=== PATIENT | female | born 1990 | race Caucasian/White ===

== ENCOUNTER 2024-06-29 11:37 | Emergency (ER) | payer OTHER, SELFPAY ==
[2024-06-29 11:41] VITALS: BP 105/61; PULSE 65; TEMP 36.6; O2SAT 99; BMI 28.1
--- NOTE | 2024-06-29 13:30 | ED.EXTPRO1 ---
HPI - Extremity Problem General Chief complaint: Extremity Problem, Nontraumatic Stated complaint: ANXIOUS Time Seen by Provider: 06/29/24 11:46 Source: patient Mode of arrival: walk-in Limitations: no limitations History of Present Illness HPI Narrative: The patient is coming to the ER for evaluation of her right wrist pain, she mentioned that she have history of carpal tunnel and she usually used to do some crafts but recently she mentioned that the pain got worse is mostly associated with numbness and tingling in her first 3 fingers No history of fall or injury The patient also mentioned that she have a history of neuropathic pain she is supposed to gabapentin but for the last few months she has not had any insurance and she has not had follow-up with her doctor to get a refill Related Data Home Medications ?Medication ?Instructions ?Recorded ?Confirmed clonidine HCl 0.1 mg tablet 0.1 mg PO Q8H PRN withdrawal 06/29/24 06/29/24 symptoms hydroxyzine HCl 50 mg tablet 50 mg PO BID PRN anxiety 06/29/24 06/29/24 naltrexone 50 mg tablet 100 mg PO Q24H 06/29/24 06/29/24 omeprazole 40 mg capsule,delayed 40 mg PO DAILY 06/29/24 06/29/24 release propranolol 10 mg tablet 10 mg PO Q12H PRN anxiety 06/29/24 06/29/24 valacyclovir 500 mg tablet 500 mg PO DAILY 06/29/24 06/29/24 zolpidem 10 mg tablet 10 mg PO BEDTIME 06/29/24 06/29/24 Previous Rx's ?Medication ?Instructions ?Recorded acetaminophen 650 mg 650 mg PO Q8H PRN pain #20 tabs 06/29/24 tablet,extended release (Tylenol 8 Hour) gabapentin 800 mg tablet 800 mg PO TID 5 days #15 tabs 06/29/24 prednisone 20 mg tablet 20 mg PO DAILY 5 days #5 tabs 06/29/24 Allergies Allergy/AdvReac Type Severity Reaction Status Date / Time No Known Drug Allergies Allergy Verified 06/29/24 11:45 Review of Systems ROS Status of ROS 10 or more systems reviewed and unremarkable except as noted in history and below Exam Narrative Exam Narrative: Nurses notes and vital signs reviewed and patient is not hypoxic. General: Well-appearing and in no apparent distress. Skin: Warm, dry, no pallor noted. No rash. Head: Normocephalic, atraumatic. Neck: Supple, non-tender. Eye: Pupils are equal, round and EOMI. No scleral icterus. Ears, Nose, Mouth, and Throat: TM are clear, no nasal mucosal hypertrophy. Oral mucosa is moist, no posterior oropharynx erythema, uvula is mid-line Cardiovascular: Regular Rate and Rhythm without murmur, gallop or rub. Respiratory: No accessory muscle use or respiratory distress. Lungs are clear to auscultation, no wheezing, rales or rhonchi Chest Wall: no tenderness Back: No midline thoracic or lumbar vertebral tenderness. No CVA tenderness Musculoskeletal: normal ROM, no calf or popliteal tenderness, no lower extremity edema/swelling, patient right hand examination shows no numbness tingling or any finding on examination except for localized tenderness at the wrist area mostly laterally GI: Abdomen is soft, non-distended. Normal bowel sounds. No masses appreciated. No tenderness to palpation. No rebound, guarding, or rigidity noted. Neurological: A&O x4. No cranial nerve dysfunction observed. No truncal ataxia. Moves all extremities. Sensation intact. Psychiatric: Cooperative and interactive. Normal mood and affect. Constitutional Vital Signs, click to edit/add: Last Vital Signs Temp 97.8 F 06/29/24 11:41 Pulse 65 06/29/24 11:41 Resp 16 06/29/24 11:41 BP 105/61 06/29/24 11:41 Pulse Ox 99 06/29/24 11:41 O2 Del Method Room Air 06/29/24 11:41 Course Vital Signs Vital signs: Vital Signs Temperature 97.8 F 06/29/24 11:41 Pulse Rate 65 06/29/24 11:41 Respiratory Rate 16 06/29/24 11:41 Blood Pressure 105/61 06/29/24 11:41 Pulse Oximetry 99 06/29/24 11:41 Oxygen Delivery Method Room Air 06/29/24 11:41 Temperature 97.8 F 06/29/24 11:41 Pulse Rate 65 06/29/24 11:41 Respiratory Rate 16 06/29/24 11:41 Blood Pressure 105/61 06/29/24 11:41 Pulse Oximetry 99 06/29/24 11:41 Oxygen Delivery Method Room Air 06/29/24 11:41 MDM - Extremity (Nontraumatic) MDM Narrative Medical decision making narrative: The patient rest evaluation showed that mostly she is having carpal tunnel again she was started on prednisone low-dose as well as Tylenol with the splint of the wrist was already worn by the patient The patient also provided gabapentin for the next 5 days with instruction to follow-up with her primary care for further evaluation The patient is to follow up with primary care physician in next 2-3 days or to return to the emergency department should any of the signs or symptoms worsen or new symptoms develop. The patient agrees with the following Diagnosis and Treatment plan and the patient will be discharged home. Discharge Plan Discharge Stand Alone Forms: Portal Instructions Chief Complaint: Extremity Problem, Nontraumatic Clinical Impression: Medicine refill Acute carpal tunnel syndrome Qualifiers: Laterality: right Qualified Code(s): G56.01 - Carpal tunnel syndrome, right upper limb Patient Disposition: Home, Self-Care Time of Disposition Decision: 12:03 Condition: Good Prescriptions / Home Meds: New prednisone 20 mg tablet 20 mg PO DAILY 5 Days Qty: 5 0RF acetaminophen [Tylenol 8 Hour] 650 mg tablet extended release 650 mg PO Q8H PRN (Reason: pain) Qty: 20 0RF gabapentin 800 mg tablet 800 mg PO TID 5 Days Qty: 15 0RF Discontinued gabapentin 800 mg tablet 800 mg PO QID No Action clonidine HCl 0.1 mg tablet 0.1 mg PO Q8H PRN (Reason: withdrawal symptoms) hydroxyzine HCl 50 mg tablet 50 mg PO BID PRN (Reason: anxiety) naltrexone 50 mg tablet 100 mg PO Q24H omeprazole 40 mg capsule,delayed release(DR/EC) 40 mg PO DAILY propranolol 10 mg tablet 10 mg PO Q12H PRN (Reason: anxiety) valacyclovir 500 mg tablet 500 mg PO DAILY zolpidem 10 mg tablet 10 mg PO BEDTIME Print Language: Slovenian Instructions: Gabapentin (By mouth), Carpal Tunnel Syndrome (DC) Referrals: Physician,Non-Staff, MD [Primary Care Provider] - 1 week Discharge Date/Time: 06/29/24 12:12
== END 2024-06-29 12:12 | disposition home or self-care (01) ==
PROVIDERS: Emergency Provider Emergency Medicine
DX: G56.01 Carpal tunnel syndrome, right upper limb (principal); Z76.0 Encounter for issue of repeat prescription
CPT/HCPCS: 99283

== ENCOUNTER 2024-10-22 16:08 | Outpatient (OUT) | payer MEDICAID, SELFPAY ==
[2024-10-22 17:23] LABS: Basophils Percent Auto 0.6 % (0.2-2.0); Eosinophils Absolute Auto 0.1 10^3/uL (0.0-0.7); Eosinophils Percent Auto 1.9 % (0.9-7.0); Hematocrit 31.6 % (36.0-48.0); Hemoglobin 10.6 g/dL (12.0-16.0); Immature Granulocytes Abs Auto 0.01 10^3/uL (0.00-0.03); Immature Granulocytes Pct Auto 0.1 % (0.0-0.5); Lymphocytes Absolute Auto 3.8 10^3/uL (1.2-3.8); Lymphocytes Percent Auto 55.7 % (20.5-60.0); Mean Corpuscular HGB Conc 33.5 g/dL (29.9-35.2); Mean Corpuscular Hemoglobin 33.8 pg (26.7-34.0); Mean Corpuscular Volume 100.6 fL (81.0-99.0); Mean Platelet Volume 12.3 fL (9.5-13.5); Monocytes Absolute Auto 0.6 10^3/uL (0.3-0.8); Monocytes Percent Auto 8.8 % (1.7-12.0); Neutrophils Absolute Auto 2.2 10^3/uL (1.4-6.5); Neutrophils Percent Auto 32.9 % (43.0-75.0); Platelet Count 132 10^3/uL (150-450); Red Blood Count 3.14 10^6/uL (4.20-5.40); White Blood Count 6.8 10^3/uL (4.0-11.0)
[2024-10-22 17:29] LABS: INR 1.14; Prothrombin Time 11.9 sec (9.0-11.6)
[2024-10-22 18:08] LABS: Alanine Aminotransferase 101 U/L (14-59); Albumin Globulin Ratio 0.7; Albumin Level 3.4 g/dL (3.4-5.0); Alkaline Phosphatase 129 U/L (46-116); Anion Gap 13.1; Aspartate Amino Transferase 81 U/L (15-37); BUN Creatinine Ratio 18.9; Bilirubin Total 0.8 mg/dL (0.2-1.0); Carbon Dioxide 25.8 mmol/L (21.0-32.0); Chloride 103 mmol/L (98-107); Estimated GFR (African America >60 (>=60 mL/min/1.73m^2); Estimated GFR (Non-African Ame >60 (>=60 mL/min/1.73m^2); Glucose 77 mg/dL (74-106); Potassium 3.9 mmol/L (3.5-5.1); Sodium 138 mmol/L (136-145); Total Protein 8.4 g/dL (6.4-8.2)
[2024-10-22 18:10] LABS: HCG Quantitative <1 mIU/mL
[2024-10-25 20:09] LABS: Hepatitis C Genotype 1a (.)
== END 2024-10-22 16:09 | disposition home or self-care (01) ==
LOC: LAB 16:11
DX: J18.9 Pneumonia, unspecified organism (principal); B18.2 Chronic viral hepatitis C; F10.180 Alcohol abuse with alcohol-induced anxiety disorder; Z13.84 Encounter for screening for dental disorders
CPT/HCPCS: 36415; 80053; 81596; 84702; 85025; 85610; 86708; 87902

== ENCOUNTER 2024-12-30 07:27 | Outpatient (OUT) | payer SELFPAY ==
--- OUTSIDE RECORDS SUMMARY | 2024-12-30 07:32 | XMS_ITS | CCD ---
Author Organization [facility]iniSym[facility] Care Team Providers Care Reference Librarian Name Role Phone STERAVIOFF, KORI Attending Unavailable STEENHOFF, KORI Admitting Unavailable SELF, REFERRED Referring Unavailable SELF, REFERRED Primary Care Unavailable Unavailable Primary Care Provider Unavailcathie e Unavailable Primary Care Provider Unavailcathie e CHASE PEGUERO Attending Unavailable SEGUNDO SOTO Admitting Unavailable RENNY GONSALES I Attending Unavailable LEYLA VORA Consulting Unavailable DENISA TORRES Consulting Unavailable AKIRA NAVARRETE Referring Unavailable STEENHOFF, KORI Attending Unavailable STEENHOFF, KORI Referring Unavailable Karen Langford Unavailable BK, P. RERE Referring Unavailable BK, P. RERE Attending Unavailable SELF, SELF Primary Care Unavailable BK, P. RERE Attending Unavailable SELF, SELF Primary Care Unavailable BK, P. RERE Referring Unavailable BK, P. RERE Referring Unavailable BK, P. RERE Attending Unavailable SELF, SELF Primary Care Unavailable BK, P. RERE Referring Unavailable BK, P. RERE Attending Unavailable SELF, SELF Primary Care Unavailable SELF, SELF Primary Care Unavailable BK, P. RERE Referring Unavailable BK, P. RERE Attending Unavailable BK, P. RERE Attending Unavailable SELF, SELF Referring Unavailable BK, P. RERE Referring Unavailable BK, P. RERE Attending Unavailable BK, P. RERE Referring Unavailable BK, P. RERE Attending Unavailable BK, P. RERE Referring Unavailable BK, P. RERE Attending Unavailable BK, P. RERE Referring Unavailable BK, P. RERE Attending Unavailable BK, P. RERE Referring Unavailable BK, P. RERE Attending Unavailable SELF, SELF Primary Care Unavailable BK, P. RERE Referring Unavailable BK, P. RERE Attending Unavailable SELF, SELF Primary Care Unavailable NO FAMILY, PHYSICIAN Primary Care Provider Unava ilable DO Chase Dunn A Emergency Provider MD Mike Verduzco Admit Provider MD Mike Verduzco Attending Provider MD Rolo Perez Other Provider MD Chidi Rick Attending Provider MD Leyla Emerson Other Provider MD Vadim Banda Other Provider SAMY Fabian Other Provider DO Steven June Jr Other Provider [phone] MD Macho Adan Other Provider MD Renny Multani Other Provider NO FAMILY, PHYSICIAN Primary Care Unavailable Rolo Perez Consulting Unavailable Chidi Rick Attending Unavailable Mike Verduzco Admitting Unavailab le Leyla Emerson Consulting Unavailable Vadim Banda Consulting Unavailable Gerri Fabian Consulting Unavailable Steven June Jr Consulting Unavailabl e Macho Adan Consulting Unavaila ble Renny Multani Consulting Unavaila ble Medications Current Medications Medication Drug Class(es) Dates Sig (Normalized) Sig (Original) acamprosate calcium 333 mg delayed release oral tablet (3 sources) Start: 11-07-2022 take 1 tablet by mouth twice daily acamprosate (CAMPRAL) 333 MG tablet Take 333 mg by mouth 2 times daily 0 11/07/2022 Active Acetaminophen (2 sources) Start: 01-13-2023 acetaminophen (TYLENOL) tablet 650 mg Pain Relief Extr a Strength 500 MG Oral for 7 Days Active amoxicillin 500 mg oral capsule (1 source) Penicillin-class Antibacterial Start: 03-06-2023 take 1 capsule by mouth every eight hours Amoxicillin 500 MG 1 capsule Orally three times a day for 10 day(s) Feb, Active buprenorphine 8 mg / naloxone 2 mg sublingual tablet (4 sources) Partial Opioid Agonist, Opioid Antagonist Start: 01-13-2023 buprenorphine-na loxone (SUBOXONE) 8-2 MG SL tablet 2 tablet Buprenorphine HC l-Naloxone HCl 8-2 MG dissolve 1 FILM under the tongue three times a day Sublingual for 14 Days Active buprenorphine-na loxone (SUBOXONE) 8-2 MG SUBL SL tablet Place 1 tablet under the tongue 3 times daily. 0 Active cholecalciferol 1.25 mg oral capsule (1 source) Vitamin D Start: 12-23-2022 End: 01-21-2023 take 1 capsule by mouth every week vitamin D (CHOLECALCIFEROL) 19501 UNIT CAPS Take 50,000 Units by mouth once a week 0 12/23/2022 01/21/2023 Active cloNIDine hydrochloride 0.1 mg oral tablet (6 sources) Central alpha-2 Adrenergic Agonist Start: 08-17-2024 take 1 tablet by mouth once daily at bedtime Clonidine Hcl Active 0.1 MG PO Daily at bedtime August 17, 2024 12:00am FreeTextSig: Oral; Note: Source Status: Taking; Qty: 14 Tablet; Provider: Anastasiya Jones ( ) Start: 01-13-2023 End: 01-16-2023 cloNIDine (CATAPRES) 0.1 MG/ 24HR 1 patch Start: 01-03-2023 take 1 tablet by malena th three times daily cloNIDine (CATAPRES) 0.1 MG tablet Take 0.1 mg by mouth 3 times daily 0 01/03/2023 Active folic acid 1 mg oral tablet (4 sources) Start: 01-13-2023 take 1 tablet by mouth once daily folic acid (FOLVITE) 1 MG tablet Take 1 tablet by mouth daily 30 tablet 3 01/14/2023 Active gabapentin 800 mg oral tablet (6 sources) Anti-epileptic Agent Start: 08-20-2024 take 1 tablet by mouth three times daily Gabapentin Active 800 MG PO Three times daily August 20, 2024 6:31pm FreeTextSig: Oral; Note: Source Status: Taking; Qty: 42 Tablet; Provider: Anastasiya Jones ( ) Start: 08-17-2024 End: 08-20-2024 take 1 tablet by mouth four times daily Gabapentin Discontinued 800 MG PO Four times daily August 17, 2024 12:00am August 20, 2024 6:32pm FreeTextSig: Oral; Note: Source Status: Taking; Qty: 42 Tablet; Provider: Anastasiya Jones ( ) Start: 01-13-2023 gabapentin (NE URONTIN) capsule 400 mg Start: 01-03-2023 take 1 tablet by malena th three times daily gabapentin (NEURONTIN) 800 MG tablet Take 800 mg by mouth 3 times daily. 0 01/03/2023 Active hydrOXYzine hydrochloride 50 mg oral tablet (5 sources) Antihistamine Start: 08-17-2024 take 50 mg by mouth four times daily Hydroxyzine Hcl Active 50 MG PO Four times daily August 17, 2024 12:00am Start: 11-24-2022 take 1 tablet by malena th twice daily hydrOXYzine HCl (ATARAX) 50 MG tablet Take 50 mg by mouth 2 times daily 0 11/24/2022 Active hydrOXYzine HCl 25 MG Oral for 3 Days Active ibuprofen 800 mg oral tablet (1 source) Nonsteroidal Anti-inflammatory Drug Ibuprofen 800 MG Oral for 30 Days Active nicotine 4 mg inhalation solution (3 sources) Cholinergic Nicotinic Agonist Start: 01-16-2023 End: 02-15-2023 nicotine (NICOTROL) 10 MG inhaler Inhale 1 puff into the lungs as needed for Smoking cessation 1 each 3 01/16/2023 02/15/2023 Active Start: 01-14-2023 nicotine (ERIC TROL) inhaler 1 puff (Patient Supplied) omeprazole 40 mg delayed release oral capsule (4 sources) Proton Pump Inhibitor Start: 08-17-2024 take 1 capsule by mouth once daily Omeprazole Active 40 MG PO Daily August 17, 2024 12:00am FreeTextSig: Oral; Note: Source Status: Taking; Qty: 30 Capsule; Provider: Anastasiya Jones ( ) Omeprazole 40 MG Oral for 30 Days Active ondansetron 4 mg oral tablet (5 sources) Serotonin-3 Receptor Antagonist Start: 08-17-2024 take 4 mg by mouth twice daily Ondansetron Hcl Active 4 MG PO Twice daily August 17, 2024 12:00am Start: 01-12-2023 End: 01-12-2023 ondansetron (ZOFRAN) injecti on 4 mg Start: 09-21-2022 End: 09-21-2022 ondansetron (ZOFRAN) injecti on 4 mg take 1 tablet by malena th four times daily for nausea Ondansetron 4 MG dissolve 1 tablet ON TONGUE four times a day if needed for nausea OR vomiting Oral for 3 Days Active ondansetron (ZOFRAN-ODT) disintegrating tablet 4 mg (1 source) Start: 01-13-2023 ondansetron (Z OFRAN-ODT) disintegrating tablet 4 mg PHENobarbital 65 mg/ml injectable solution (2 sources) Start: 01-15-2023 End: 01-17-2023 PHENobarbital (LUMINAL) injection 16.2 mg Start: 01-12-2023 End: 01-12-2023 PHENobarbital (LUMINAL) inje ction 260 mg Potassium Chloride (1 source) Start: 01-13-2023 potassium chlo ride (KLOR-CON M) extended release tablet 40 mEq predniSONE 20 mg oral tablet (1 source) Start: 03-06-2023 take 1 tablet by mouth every twelve hours predniSONE 20 MG 1 tablet Orally bid for 5 day(s) Feb, Active propranolol hydrochloride 10 mg oral tablet (4 sources) beta-Adrenergic Iraida Start: 08-17-2024 take 1 tablet by mouth twice daily Propranolol Active 10 MG PO Three times daily August 17, 2024 12:00am FreeTextSig: take 1 tablet by mouth twice a day if needed for 30 DAYS Oral; Note: Source Status: Taking; Refills: 0; Qty: 60 Each; Provider: EMELY SHEFFIELD Start: 01-03-2023 take 1 tablet by malena twice daily propranolol (INDERAL) 10 MG tablet Take 10 mg by mouth 2 times daily 0 01/03/2023 Active Senna Leaves (1 source) take 1 tablet by mouth once daily at bedtime RA Senna 8.6 MG take 1 tablet by mouth every morning and BEFORE BEDTIME Oral for 30 Days Active thiamine 100 mg oral tablet (4 sources) Start: 01-13-2023 take 1 tablet by mouth once daily thiamine 100 MG tablet Take 1 tablet by mouth daily 30 tablet 3 01/14/2023 Active zolpidem tartrate 10 mg oral tablet (1 source) gamma-Aminobutyric Acid-ergic Agonist Start: 08-17-2024 take 10 mg by mouth once daily at bedtime Zolpidem Active 10 MG PO Daily at bedtime August 17, 2024 12:00am Completed/Discontinued Medications Medication Drug Class(es) Dates Sig (Normalized) Sig (Original) calcium chloride 0.0014 meq/ml / potassium chloride 0.004 meq/ml / sodium chloride 0.103 meq/ml / sodium lactate 0.028 meq/ml injectable solution (2 sources) Start: 01-13-2023 End: 01-14-2023 lactated ringers IV soln infusion Start: 09-21-2022 End: 09-21-2022 lactated ringers bolus 50 ml calcium gluconate 20 mg/ml injection (1 source) Start: 01-13-2023 End: 01-13-2023 calcium gluconate 1,000 mg in sodium chloride 50 mL 0.4 ml enoxaparin sodium 100 mg/ml prefilled syringe (1 source) Low Molecular Weight Heparin Start: 01-13-2023 inject 40 mg by subcutaneous injection once daily 40 mg, SubCUTAneous, DAILY, First dose on Mon01/13/23 at 0900, Until Discontinued Indication of Use: Prophylaxis-DVT/P E Administer by deep subCUTAneous injection with pt lying down. Alternate injection sites on abdominal wall. Do not rub site after injection. Check with MD prior to any invasive procedure. folic acid 1 mg, thiamine (B-1) 100 mg in sodium chloride 0.9 % 50 mL IVPB (1 source) Start: 01-12-2023 End: 01-12-2023 folic acid 1 mg, thiamine (B-1) 100 mg in sodium chloride 0.9 % 50 mL IVPB 1000 ml glucose 500 mg/ml injection (1 source) Start: 01-12-2023 End: 01-12-2023 dextrose 50 % IV solution LORazepam 0.5 mg oral tablet (1 source) Benzodiazepine Start: 09-21-2022 End: 09-21-2022 LORazepam (ATIVAN) tablet 1 mg Start: 09-21-2022 End: 09-21-2022 LORazepam (ATIVAN) tablet 1 mg 50 ml magnesium sulfate 40 mg/ml injection (1 source) Start: 01-12-2023 End: 01-13-2023 magnesium sulfate 2000 mg in 50 mL IVPB premix melatonin 10 mg extended release oral tablet (1 source) Melatonin 10 MG Oral for 30 Days Not-Taking 2 ml midazolam 1 mg/ml injection (1 source) Benzodiazepine Start: 09-21-2022 End: 09-21-2022 midazolam PF (VERSED) injection 2 mg pantoprazole 40 mg delayed release oral tablet (1 source) Proton Pump Inhibitor Start: 01-14-2023 take 40 mg by mouth once daily before breakfast 40 mg, Oral, DAILY BEFORE BREAKFAST, First dose on Mon01/14/23 at 0700, Until Discontinued Do not crush or break. Substituted for Omeprazole (PRILOSEC). polyethylene glycol 3350 53275 mg powder for oral solution (2 sources) Osmotic Laxative Start: 01-13-2023 17 g, Oral, DAILY PRN, Starting on Mon01/13/23 at 0013, Until Discontinued, Constipation First line therapy for constipation 2 ml prochlorperazine 5 mg/ml injection (1 source) Phenothiazine Start: 01-16-2023 End: 01-16-2023 prochlorperazine (COMPAZINE) injection 10 mg Start: 01-16-2023 End: 01-16-2023 prochlorperazine (COMPAZINE) injection 10 mg 5 ml sodium chloride 9 mg/ml injection (6 sources) Start: 01-13-2023 take 1 dose intravenously twice daily 5-40 mL, IntraVENous, EVERY 12 HOURS SCHEDULED (2 times per day), First dose on Mon01/13/23 at 0900, Until Discontinued For Line Patency: Peripheral IV = 5 mL; Midline or Central Line = 10 mL/lumen. If following IV push medication, administer flush at same rate as the IV push. Flush volume is determined by type of infusion therapy being given. For non-viscous solutions use: Peripheral IV = 5 mL Midline or Central Line = 10 mL/lumen For viscous solutions (i.e. blood components, parenteral nutrition, contrast media, or after obtaining blood sample) use: Peripheral IV = 10 mL Midline or Central Line = 20 mL/lumen Start: 01-13-2023 End: 01-13-2023 IntraVENous, at 125 mL/hr, CONTINUOUS, Starting on Mon01/13/23 at 0030 Start: 01-13-2023 IntraVENous, a t 5-250 mL/hr, PRN, if patient receiving piggyback infusions and maintenance fluids are not ordered OR KVO fluids to protect IV site / prevent frequent line interruptions/ long duration, Starting on Mon01/13/23 at 0013 For piggyback infusion, administer at same rate as piggyback for a total of 25 mL. Enter 25 mL into dose field and piggyback rate into rate field of order. If piggyback is infusing at a rate less than 100 mL/hr, enter 25 mL into dose field and 100 mL/hr into rate field of order. For KVO fluids, enter rate of 20 mL/hr or less into rate field of order. Start: 01-13-2023 take 10 mL intraveno usly once as needed 10 mL, IntraVENous, PRN, Starting on Mon01/13/23 at 0013, Until Discontinued, Line Care, After every IV line use Start: 01-12-2023 End: 01-13-2023 0.9 % sodium chloride bolus tiZANidine 2 mg oral tablet (1 source) Central alpha-2 Adrenergic Agonist tiZANidine HCl 2 MG Oral for 6 Days Not-Taking traZODone hydrochloride 100 mg oral tablet (1 source) Serotonin Reuptake Inhibitor traZODone HCl 100 MG Oral for 30 Days Not-Taking Problems Active Problems Problem Classification Problem Date Documented Date Episodic/Chronic Alcohol-related disorders (9 sources) Alcohol withdrawal syndrome; Translations: [Alcohol withdrawal syndrome with complication] Onset: 04-22-2022 09-21-2022 Chronic Alcohol-related disorders (3 sources) Alcohol intoxication delirium ; Translations: [Alcohol use, unspecified with intoxication delirium] Onset: 01-13-2023 Episodic Bacterial infection; unspecified site (1 source) Other specified bacterial agents as the cause of diseases classified elsewhere Episodic Coagulation and hemorrhagic disorders (3 sources) Thrombocytopenic disorder; Translations: [Thrombocytopenia, unspecified] Onset: 08-12-2024 08-15-2024 Chronic Deficiency and other anemia (1 source) Anemia; Translations: [Anemia, unspecified] 08-15-2024 Episodic Delirium, dementia, and amnestic and other cognitive disorders (4 sources) Delirium; Translations: [Delirium due to known physiological condition] 08-12-2024 Chronic Epilepsy; convulsions (5 sources) Seizure; Translations: [Unspecified convulsions] Onset: 01-12-2023 Episodic Miscellaneous mental health disorders (2 sources) Primary insomnia; Translations: [Primary insomnia] Onset: 05-04-2023 Chronic Nausea and vomiting (3 sources) Nausea and vomiting; Translations: [Nausea with vomiting, unspecified] Onset: 01-13-2023 Episodic Other circulatory disease (3 sources) Low blood pressure; Translations: [Hypotension, unspecified] Onset: 01-13-2023 Episodic Other endocrine disorders (3 sources) Hypoglycemia; Translations: [Hypoglycemia, unspecified] Onset: 01-13-2023 Chronic Other hematologic conditions (3 sources) Macrocytosis; Translations: [Other specified diseases of blood and blood-forming organs] Onset: 01-13-2023 Chronic Other liver diseases (2 sources) Liver disease, unspecified; Translations: [Liver disease, unspecified] Onset: 01-23-2023 Chronic Other liver diseases (3 sources) Jaundice; Translations: [Unspecified jaundice] Onset: 01-13-2023 Episodic Other liver diseases (2 sources) Abnormal levels of other serum enzymes; Translations: [Abnormal levels of other serum enzymes] Onset: 01-23-2023 Episodic Other nutritional; endocrine; and metabolic disorders (1 source) Hypophosphatemia; Translations: [Other disorders of phosphorus metabolism] 08-13-2024 Chronic Other nutritional; endocrine; and metabolic disorders (1 source) Hypomagnesemia; Translations: [Hypomagnesemia] 08-13-2024 Chronic Other nutritional; endocrine; and metabolic disorders (2 sources) Hypomagnesemia; Translations: [Disorders of magnesium metabolism] Onset: 08-12-2024 08-21-2024 Chronic Other nutritional; endocrine; and metabolic disorders (2 sources) Other disorders of phosphorus metabolism; 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] Onset: 08-12-2024 08-21-2024 Chronic Other upper respiratory infections (2 sources) Acute pharyngitis, unspecified; Translations: [Acute pharyngitis due to other specified organisms] Episodic Residual codes; unclassified (1 source) Current drinker; Translations: [Other specified health status] Episodic Residual codes; unclassified (2 sources) Altered mental status; Translations: [Altered mental status, unspecified] 08-12-2024 Episodic Substance-related disorders (5 sources) Combined opioid with other drug dependence; Translations: [Opioid dependence, uncomplicated] Onset: 01-13-2023 Chronic Unclassified (1 source) Alcohol use, unspecified with withdrawal, uncomplicated; Translations: [Alcohol use, unspecified with withdrawal, uncomplicated] Onset: 01-12-2023 Unclassified (2 sources) Withdrawal; Translations: [Withdrawal] Onset: 09-28-2022 Unclassified (2 sources) Suicidal; Translations: [Suicidal] Onset: 09-28-2022 Past or Other Problems Problem Classification Problem Date Documented Da te Episodic/Chronic Acute and unspecified renal failure (4 sources) Acute renal failure syndrome; Translations: [Acute kidney failure, unspecified] Onset: 08-12-2024 08-13-2024 Episodic Administrative/social admission (3 sources) Other reduced mobility; Translations: [Impaired mobility and activities of daily living] Onset: 08-12-2024 08-19-2024 Episodic Aspiration pneumonitis; food/vomitus (3 sources) Aspiration pneumonia; Translations: [Pneumonitis due to inhalation of food and vomit] Onset: 08-12-2024 08-12-2024 Episodic Coma; stupor; and brain damage (2 sources) Somnolence; Translations: [Somnolence] Onset: 04-20-2023 Episodic Deficiency and other anemia (2 sources) Anemia, unspecified; Translations: [Anemia, unspecified] Onset: 08-12-2024 08-21-2024 Episodic Fluid and electrolyte disorders (6 sources) Metabolic acidosis, increased anion gap (IAG); Translations: [High anion gap metabolic acidosis] Onset: 01-13-2023 Episodic Other circulatory disease (1 source) Hypotension, unspecified; Translations: [Hypotension, unspecified] Onset: 08-12-2024 Episodic Pneumonia (except that caused by tuberculosis or sexually transmitted disease) (5 sources) Pneumonia; Translations: [Pneumonia, unspecified organism] Onset: 08-12-2024 08-12-2024 Episodic Residual codes; unclassified (2 sources) Other specified health status; Translations: [Other specified health status] Onset: 09-21-2022 Episodic Residual codes; unclassified (3 sources) Altered mental status, unspecified; Translations: [Altered mental status] Onset: 08-12-2024 08-12-2024 Episodic Respiratory failure; insufficiency; arrest (adult) (5 sources) Acute hypoxemic respiratory failure; Translations: [Acute respiratory failure with hypoxia] Onset: 08-12-2024 08-12-2024 Episodic Septicemia (except in labor) (7 sources) Sepsis; Translations: [Sepsis, unspecified organism] Onset: 08-12-2024 08-12-2024 Episodic Shock (1 source) Severe sepsis with septic shock; Translations: [Severe sepsis with septic shock] Onset: 08-12-2024 Episodic Substance-related disorders (2 sources) Heroin overdose; Translations: [Poisoning by heroin, undetermined, initial encounter] Onset: 09-21-2022 Episodic Urinary tract infections (3 sources) Urinary tract infectious disease; Translations: [Urinary tract infection, site not specified] Onset: 08-12-2024 08-13-2024 Episodic Results Test Name Value Interpretation Reference Range Facility Albumin [Mass/volume] in Ser um or Plasma by Bromocresol green (BCG) dye binding methoOrdered By: Rolo Perez on 08-20-2024 Albumin BCG dye [Mass/Vol] 2.9 g/dL Low 3.5-5.7 [facility] Automated basophil %Ordered By: Dianne Queen on 08-20-2024 Basophils/100 WBC (Bld) 0.9 % Normal . [facility] Comment on above: Performed By: #### P T, FIB-C #### [facility] [address] [place] [address] Automated basophil countOrde red By: Dianne Queen on 08-20-2024 Basophils (Bld) [#/Vol] 0.1 10*3/uL Normal 0.0-0.2 [facility] Comment on above: Result Comment: PERF ORMED BY: [place] [address] PATHOLOGIST RESEARCH SPECIALIST SHERLY TATUM M.D. Performed By: #### P T, FIB-C #### [facility] [address] [place] [address] Automated blood monocyte cou ntOrdered By: Dianne Queen on 08-20-2024 Monocytes (Bld) [#/Vol] 0.9 10*3/uL High 0.0-0.8 [facility] Comment on above: Performed By: #### P T, FIB-C #### [address] Automated eosinophil %Ordere d By: Dianne Bret on 08-20-2024 Eosinophils/100 WBC (Bld) 2.6 % Normal . [facility] Comment on above: Performed By: #### P T, FIB-C #### [address] Automated eosinophil countOr dered By: Dianne Bret on 08-20-2024 Eosinophils (Bld) [#/Vol] 0.2 10*3/uL Normal 0.0-0.45 [facility] Comment on above: Performed By: #### P T, FIB-C #### [address] Automated monocyte %Ordered By: Dianne Bret on 08-20-2024 Monocytes/100 WBC (Bld) 11.9 % Normal . [facility] Comment on above: Performed By: #### P T, FIB-C #### [address] Automated neutrophil %Ordere d By: Dianne Bret on 08-20-2024 Neutrophils/100 WBC (Bld) 48.2 % Normal . [facility] Comment on above: Performed By: #### P T, FIB-C #### [address] Calcium [Mass/volume] in Ser um or PlasmaOrdered By: Rolo Perez on 08-20-2024 Calcium [Mass/Vol] 7.8 mg/dL Low 8.6-10.3 [facility] Comment on above: Performed By: #### P T, FIB-C #### [address] Carbon dioxide, total [Moles /volume] in Serum or PlasmaOrdered By: Rolo Chris on 08-20-2024 CO2 [Moles/Vol] 24.2 mmol/L Normal 21.0-31.0 [facility] Comment on above: Performed By: #### P T, FIB-C #### [address] Chloride [Moles/volume] in S dada or PlasmaOrdered By: Rolo Perez on 08-20-2024 Chloride [Moles/Vol] 108 mmol/L High 98-107 [facility] Comment on above: Performed By: #### P T, FIB-C #### [address] Complete Blood Count Auto Di ffon 08-20-2024 Mean Corpuscular HGB Conc 34.0 g/dL Normal 32.0-35.0 [facility] Comment on above: Performed By: #### P T, FIB-C #### [address] NRBC% 0.1 /100{WBC} Normal 0-0.5 [facility] Comment on above: Performed By: #### P T, FIB-C #### [address] Creatinine [Mass/volume] in Serum or PlasmaOrdered By: Rolo Perez on 08-20-2024 Creatinine [Mass/Vol] 1.64 mg/dL High 0.60-1.20 [facility] Comment on above: Performed By: #### P T, FIB-C #### [address] Erythrocyte distribution wid th [Ratio] by Automated countOrdered By: Dianne Queen on 08-20-2024 Erythrocyte distribution width (RBC) [Ratio] 16.1 % High 11.9-15.3 [facility] Comment on above: Performed By: #### P T, FIB-C #### [address] Erythrocytes [#/volume] in B lood by Automated countOrdered By: Dianne Queen on 08-20-2024 RBC (Bld) [#/Vol] 3.14 10*6/uL Low 3.60-5.00 [facility] Comment on above: Performed By: #### P T, FIB-C #### [address] Glucose [Mass/volume] in Ser um or PlasmaOrdered By: Rolo Perez on 08-20-2024 Glucose [Mass/Vol] 87 mg/dL Normal 70-100 [facility] Comment on above: ADA recommended refe rence rangeRandom Glucose Reference Range is dependent on time and content of last meal. Glucose of more than 200 mg/dL in a nonstressed, ambulatory subject supports the diagnosis of Diabetes Mellitus. Result Comment: [place] om Glucose Reference Range is dependent on time and content of last meal. Glucose of more than 200 mg/dL in a nonstressed, ambulatory subject supports the diagnosis of Diabetes Mellitus. ADA recommended reference range Performed By: #### P T, FIB-C #### [address] Hematocrit [Volume Fraction] of Blood by Automated countOrdered By: Dianne Queen on 08-20-2024 Hematocrit (Bld) [Volume fraction] 30.4 % Low 34.0-46.4 [facility] Comment on above: Performed By: #### P T, FIB-C #### [address] Hemoglobin [Mass/volume] in BloodOrdered By: Dianne Queen on 08-20-2024 Hemoglobin (Bld) [Mass/Vol] 10.3 g/dL Low 11.8-15.4 [facility] Comment on above: Performed By: #### P T, FIB-C #### [facility] [address] [place] [address] Leukocytes [#/volume] correc minerva for nucleated erythrocytes in Blood by Automated counOrdered By: Dianne Queen on 08-20-2024 WBC corrected for nucl RBC Auto (Bld) [#/Vol] 7.7 10*3/uL 3.8-11.6 [facility] Leukocytes [#/volume] in Blo od by Automated countOrdered By: Dianne Queen on 08-20-2024 WBC (Bld) [#/Vol] 7.7 10*3/uL Normal 3.8-11.6 [facility] Comment on above: Performed By: #### P T, FIB-C #### [address] Lymphocytes [#/volume] in Bl ood by Automated countOrdered By: Dianne Queen on 08-20-2024 Lymphocytes (Bld) [#/Vol] 2.8 10*3/uL Normal 1.00-4.8 [facility] Comment on above: Performed By: #### P T, FIB-C #### [address] Lymphocytes/100 leukocytes i n Blood by Automated countOrdered By: Dianne Queen on 08-20-2024 Lymphocytes/100 WBC (Bld) 36.4 % Normal . [facility] Comment on above: Performed By: #### P T, FIB-C #### [address] MCH [Entitic mass] by Automa minerva countOrdered By: Dianne Queen on 08-20-2024 MCH (RBC) [Entitic mass] 32.9 pg Normal 24.7-34.3 [facility] Comment on above: Performed By: #### P T, FIB-C #### [address] MCHC Auto (RBC) [Mass/Vol]Or dered By: Dianne Queen on 08-20-2024 MCHC (RBC) [Mass/Vol] 34.0 g/dL 32.0-35.0 [facility] MCV [Entitic volume] by Auto mated countOrdered By: Dianne Queen on 08-20-2024 MCV (RBC) [Entitic vol] 96.7 fL Normal 80-100 [facility] Comment on above: Performed By: #### P T, FIB-C #### [address] Neutrophils [#/volume] in Bl ood by Automated countOrdered By: Dianne Queen on 08-20-2024 Neutrophils (Bld) [#/Vol] 3.7 10*3/uL Normal 1.8-7.7 [facility] Comment on above: Performed By: #### P T, FIB-C #### [facility] [address] [place] [address] No Panel InformationOrdered By: Rolo Perez on 08-20-2024 Estimated GFR (CKD-EPI) 42.398 mL/Min [facility] Creatinine Clearance (Chem 59.04 [facility] Nucleated erythrocytes [Pres ence] in Blood by Automated countOrdered By: Dianne Queen on 08-20-2024 Nucleated RBC Auto Ql (Bld) 0.1 /100{WBC} 0-0.5 [facility] Phosphate [Mass/volume] in S dada or PlasmaOrdered By: Rolo Perez on 08-20-2024 Phosphate [Mass/Vol] 3.6 mg/dL Normal 2.5-4.5 [facility] Comment on above: Performed By: #### P T, FIB-C #### [facility] [address] [place] [address] Platelet mean volume [Entiti c volume] in Blood by Automated countOrdered By: Dianne Queen on 08-20-2024 Platelet mean volume (Bld) [Entitic vol] 8.0 fL Normal 6.3-10.7 [facility] Comment on above: Performed By: #### P T, FIB-C #### [facility] [address] [place] [address] Platelets [#/volume] in Bloo d by Automated countOrdered By: Dianne Queen on 08-20-2024 Platelets (Bld) [#/Vol] 177 10*3/uL Normal 150-450 [facility] Comment on above: Performed By: #### P T, FIB-C #### [facility] [address] [place] [address] Potassium [Moles/volume] in Serum or PlasmaOrdered By: Rolo Perez on 08-20-2024 Potassium [Moles/Vol] 3.2 mmol/L Low 3.5-5.1 [facility] Comment on above: Performed By: #### P T, FIB-C #### [address] Renal Function Panelon 08-20 Albumin [Mass/Vol] 2.9 g/dL Low 3.5-5.7 [facility] Comment on above: Performed By: #### P T, FIB-C #### [address] Creatinine Clr Calc Pharmacy 59.04 Normal [facility] Comment on above: Result Comment: PERF ORMED BY: [place] [address] PATHOLOGIST RESEARCH SPECIALIST SHERLY TATUM M.D. Performed By: #### P T, FIB-C #### [address] GFR/1.73 sq M.predicted MDRD (S/P/Bld) [Vol rate/Area] 42.398 mL/min/{1.73_m2} Normal [facility] Comment on above: Performed By: #### P T, FIB-C #### [address] Serum or plasma anion gap de terminationOrdered By: Rolo Perez on 08-20-2024 Anion gap [Moles/Vol] 12.0 mmol/L Normal 6.0-15.0 [facility] Comment on above: Performed By: #### P T, FIB-C #### [address] Sodium [Moles/volume] in Ser um or PlasmaOrdered By: Rolo Chris on 08-20-2024 Sodium [Moles/Vol] 141 mmol/L Normal 136-145 [facility] Comment on above: Performed By: #### P T, FIB-C #### [address] Urea nitrogen [Mass/volume] in Serum or PlasmaOrdered By: Rolo Perez on 08-20-2024 Urea nitrogen [Mass/Vol] 25 mg/dL Normal 7-25 [facility] Comment on above: Performed By: #### P T, FIB-C #### [address] Complete Blood Count Auto Di ffon 08-19-2024 Basophils (Bld) [#/Vol] 0.1 10*3/uL Normal 0.0-0.2 [facility] Comment on above: Result Comment: PERF ORMED BY: [place] [address] PATHOLOGIST RESEARCH SPECIALIST SHERLY TATUM M.D. Performed By: #### P HOS, MG #### [address] Basophils/100 WBC (Bld) 0.6 % Normal . [facility] Comment on above: Performed By: #### P HOS, MG #### [address] Eosinophils (Bld) [#/Vol] 0.2 10*3/uL Normal 0.0-0.45 [facility] Comment on above: Performed By: #### P HOS, MG #### [address] Eosinophils/100 WBC (Bld) 1.9 % Normal . [facility] Comment on above: Performed By: #### P HOS, MG #### [address] Erythrocyte distribution width (RBC) [Ratio] 15.8 % High 11.9-15.3 [facility] Comment on above: Performed By: #### P HOS, MG #### [address] Hematocrit (Bld) [Volume fraction] 31.6 % Low 34.0-46.4 [facility] Comment on above: Performed By: #### P HOS, MG #### [address] Hemoglobin (Bld) [Mass/Vol] 10.6 g/dL Low 11.8-15.4 [facility] Comment on above: Performed By: #### P HOS, MG #### [address] Lymphocytes (Bld) [#/Vol] 2.7 10*3/uL Normal 1.00-4.8 [facility] Comment on above: Performed By: #### P HOS, MG #### [address] Lymphocytes/100 WBC (Bld) 29.9 % Normal . [facility] Comment on above: Performed By: #### P HOS, MG #### [address] MCH (RBC) [Entitic mass] 32.8 pg Normal 24.7-34.3 [facility] Comment on above: Performed By: #### P HOS, MG #### [address] MCV (RBC) [Entitic vol] 97.8 fL Normal 80-100 [facility] Comment on above: Performed By: #### P HOS, MG #### [address] Mean Corpuscular HGB Conc 33.5 g/dL Normal 32.0-35.0 [facility] Comment on above: Performed By: #### P HOS, MG #### [address] Monocytes (Bld) [#/Vol] 1.1 10*3/uL High 0.0-0.8 [facility] Comment on above: Performed By: #### P HOS, MG #### [address] Monocytes/100 WBC (Bld) 12.6 % Normal . [facility] Comment on above: Performed By: #### P HOS, MG #### [address] Neutrophils (Bld) [#/Vol] 5.0 10*3/uL Normal 1.8-7.7 [facility] Comment on above: Performed By: #### P HOS, MG #### [address] Neutrophils/100 WBC (Bld) 55.0 % Normal . [facility] Comment on above: Performed By: #### P HOS, MG #### [facility] [address] [place] [address] NRBC% 0.2 /100{WBC} Normal 0-0.5 [facility] Comment on above: Performed By: #### P HOS, MG #### [address] Platelet mean volume (Bld) [Entitic vol] 7.9 fL Normal 6.3-10.7 [facility] Comment on above: Performed By: #### P HOS, MG #### [address] Platelets (Bld) [#/Vol] 144 10*3/uL Low 150-450 [facility] Comment on above: Performed By: #### P HOS, MG #### [address] RBC (Bld) [#/Vol] 3.23 10*6/uL Low 3.60-5.00 [facility] Comment on above: Performed By: #### P HOS, MG #### [address] WBC (Bld) [#/Vol] 9.0 10*3/uL Normal 3.8-11.6 [facility] Comment on above: Performed By: #### P HOS, MG #### [address] Renal Function Panelon 08-19 Albumin [Mass/Vol] 3.2 g/dL Low 3.5-5.7 [facility] Comment on above: Performed By: #### P T, FIB-C #### [address] Anion gap [Moles/Vol] 11.1 mmol/L Normal 6.0-15.0 [facility] Comment on above: Performed By: #### P T, FIB-C #### [address] Calcium [Mass/Vol] 8.2 mg/dL Low 8.6-10.3 [facility] Comment on above: Performed By: #### P T, FIB-C #### [address] Chloride [Moles/Vol] 108 mmol/L High 98-107 [facility] Comment on above: Performed By: #### P T, FIB-C #### [address] CO2 [Moles/Vol] 26.3 mmol/L Normal 21.0-31.0 [facility] Comment on above: Performed By: #### P T, FIB-C #### [address] Creatinine [Mass/Vol] 2.04 mg/dL High 0.60-1.20 [facility] Comment on above: Performed By: #### P T, FIB-C #### [address] Creatinine Clr Calc Pharmacy 47.49 Normal [facility] Comment on above: Result Comment: PERF ORMED BY: [place] [address] PATHOLOGIST RESEARCH SPECIALIST SHERLY TATUM M.D. Performed By: #### P T, FIB-C #### [address] GFR/1.73 sq M.predicted MDRD (S/P/Bld) [Vol rate/Area] 32.629 mL/min/{1.73_m2} Normal [facility] Comment on above: Performed By: #### P T, FIB-C #### [place] [address] [place] Glucose [Mass/Vol] 82 mg/dL Normal 70-100 [facility] Comment on above: Result Comment: [facility] Glucose Reference Range is dependent on time and content of last meal. Glucose of more than 200 mg/dL in a nonstressed, ambulatory subject supports the diagnosis of Diabetes Mellitus. ADA recommended reference range Performed By: #### P T, FIB-C #### [address] Phosphate [Mass/Vol] 3.1 mg/dL Normal 2.5-4.5 [facility] Comment on above: Performed By: #### P T, FIB-C #### [address] Potassium [Moles/Vol] 3.4 mmol/L Low 3.5-5.1 [facility] Comment on above: Performed By: #### P T, FIB-C #### [address] Sodium [Moles/Vol] 142 mmol/L Normal 136-145 [facility] Comment on above: Performed By: #### P T, FIB-C #### [address] Urea nitrogen [Mass/Vol] 28 mg/dL High 7-25 [facility] Comment on above: Performed By: #### P T, FIB-C #### [address] Complete Blood Count Auto Di ffon 08-18-2024 Basophils (Bld) [#/Vol] 0.0 10*3/uL Normal 0.0-0.2 [facility] Comment on above: Result Comment: PERF ORMED BY: [place] [address] PATHOLOGIST RESEARCH SPECIALIST SHERLY TATUM M.D. Performed By: #### B TONGUE [employer] QUARTER STITCHER #### [address] Basophils/100 WBC (Bld) 0.5 % Normal . [facility] Comment on above: Performed By: #### B TONGUE [employer] QUARTER STITCHER #### [address] Eosinophils (Bld) [#/Vol] 0.1 10*3/uL Normal 0.0-0.45 [facility] Comment on above: Performed By: #### B TONGUE AND QUARTER STITCHER #### [address] Eosinophils/100 WBC (Bld) 1.1 % Normal . [facility] Comment on above: Performed By: #### B TONGUE AND QUARTER STITCHER #### [address] Erythrocyte distribution width (RBC) [Ratio] 16.4 % High 11.9-15.3 [facility] Comment on above: Performed By: #### B TONGUE [employer] QUARTER STITCHER #### [address] Hematocrit (Bld) [Volume fraction] 26.8 % Low 34.0-46.4 [facility] Comment on above: Performed By: #### B TONGUE [employer] QUARTER STITCHER #### [address] Hemoglobin (Bld) [Mass/Vol] 9.0 g/dL Low 11.8-15.4 [facility] Comment on above: Performed By: #### B TONGUE [employer] QUARTER STITCHER #### [address] Lymphocytes (Bld) [#/Vol] 2.2 10*3/uL Normal 1.00-4.8 [facility] Comment on above: Performed By: #### B TONGUE [employer] QUARTER STITCHER #### [address] Lymphocytes/100 WBC (Bld) 26.9 % Normal . [facility] Comment on above: Performed By: #### B TONGUE AND QUARTER STITCHER #### [address] MCH (RBC) [Entitic mass] 32.4 pg Normal 24.7-34.3 [facility] Comment on above: Performed By: #### B TONGUE AND QUARTER STITCHER #### [place] [address] MCV (RBC) [Entitic vol] 96.1 fL Normal 80-100 [facility] Comment on above: Performed By: #### B TONGUE AND QUARTER STITCHER #### [address] Mean Corpuscular HGB Conc 33.7 g/dL Normal 32.0-35.0 [facility] Comment on above: Performed By: #### B TONGUE AND QUARTER STITCHER #### [address] Monocytes (Bld) [#/Vol] 1.0 10*3/uL High 0.0-0.8 [facility] Comment on above: Performed By: #### B TONGUE AND QUARTER STITCHER #### [address] Monocytes/100 WBC (Bld) 11.6 % Normal . [facility] Comment on above: Performed By: #### B TONGUE AND QUARTER STITCHER #### [address] Neutrophils (Bld) [#/Vol] 5.0 10*3/uL Normal 1.8-7.7 [facility] Comment on above: Performed By: #### B TONGUE AND QUARTER STITCHER #### [address] Neutrophils/100 WBC (Bld) 59.9 % Normal . [facility] Comment on above: Performed By: #### B TONGUE AND QUARTER STITCHER #### [address] NRBC% 0.1 /100{WBC} Normal 0-0.5 [facility] Comment on above: Performed By: #### B TONGUE AND QUARTER STITCHER #### [address] Platelet mean volume (Bld) [Entitic vol] 7.7 fL Normal 6.3-10.[address] [facility] Comment on above: Performed By: #### B TONGUE AND QUARTER STITCHER #### [address] Platelets (Bld) [#/Vol] 118 10*3/uL Low 150-450 [facility] Comment on above: Performed By: #### B TONGUE AND QUARTER STITCHER #### [address] RBC (Bld) [#/Vol] 2.79 10*6/uL Low 3.60-5.00 [facility] Comment on above: Performed By: #### B TONGUE AND QUARTER STITCHER #### [address] WBC (Bld) [#/Vol] 8.3 10*3/uL Normal 3.8-11.6 [facility] Comment on above: Performed By: #### B TONGUE AND QUARTER STITCHER #### [address] Magnesium [Mass/volume] in S dada or PlasmaOrdered By: Rolo Perez on 08-18-2024 Magnesium [Mass/Vol] 1.9 mg/dL Normal 1.9-2.7 [facility] Comment on above: Result Comment: PERF ORMED BY: [place] [address] PATHOLOGIST RESEARCH SPECIALIST SHERLY TATUM M.D. Performed By: #### P T, FIB-C #### [address] Renal Function Panelon 08-18 Albumin [Mass/Vol] 3.1 g/dL Low 3.5-5.7 [facility] Comment on above: Performed By: #### P T, FIB-C #### [address] Anion gap [Moles/Vol] 10.5 mmol/L Normal 6.0-15.0 [facility] Comment on above: Performed By: #### P T, FIB-C #### [address] Calcium [Mass/Vol] 7.8 mg/dL Low 8.6-10.3 [facility] Comment on above: Performed By: #### P T, FIB-C #### [address] Chloride [Moles/Vol] 108 mmol/L High 98-107 [facility] Comment on above: Performed By: #### P T, FIB-C #### [address] CO2 [Moles/Vol] 29.5 mmol/L Normal 21.0-31.0 [facility] Comment on above: Performed By: #### P T, FIB-C #### [address] Creatinine [Mass/Vol] 2.28 mg/dL Significan t change up 0.60-1.20 [facility] Comment on above: Performed By: #### P T, FIB-C #### [address] Creatinine Clr Calc Pharmacy 43.94 Normal [facility] Comment on above: Result Comment: PERF ORMED BY: [place] [address] PATHOLOGIST RESEARCH SPECIALIST SHERLY TATUM M.D. Performed By: #### P T, FIB-C #### [address] GFR/1.73 sq M.predicted MDRD (S/P/Bld) [Vol rate/Area] 28.552 mL/min/{1.73_m2} Normal [facility] Comment on above: Performed By: #### P T, FIB-C #### [address] Glucose [Mass/Vol] 88 mg/dL Normal 70-100 [facility] Comment on above: Result Comment: [employer] Glucose Reference Range is dependent on time and content of last meal. Glucose of more than 200 mg/dL in a nonstressed, ambulatory subject supports the diagnosis of Diabetes Mellitus. ADA recommended reference range Performed By: #### P T, FIB-C #### [place] [address] [place] Phosphate [Mass/Vol] 3.0 mg/dL Normal 2.5-4.5 [facility] Comment on above: Performed By: #### P T, FIB-C #### [address] Potassium [Moles/Vol] 3.0 mmol/L Low 3.5-5.1 [facility] Comment on above: Performed By: #### P T, FIB-C #### [address] Sodium [Moles/Vol] 145 mmol/L Normal 136-145 [facility] Comment on above: Performed By: #### P T, FIB-C #### [address] Urea nitrogen [Mass/Vol] 31 mg/dL High 7-25 [facility] Comment on above: Performed By: #### P T, FIB-C #### [address] Triglyceride [Mass/volume] i n Serum or PlasmaOrdered By: Chase Dunn on 08-18-2024 Triglyceride [Mass/Vol] 134 mg/dL Normal 35-149 [facility] Comment on above: TRIG ATP III CLASSIF ICATIONTRIG less than 150 mg/dL NormalTRIG 150-199 mg/dL Borderline highTRIG 200-500 mg/dL High TRIG greater than 500 mg/dL Very highStandard traceable to the Center for Disease Conrtrol and Prevention (CDC) test method. Result Comment: TRIG ATP III CLASSIFICATION TRIG less than 150 mg/dL Normal TRIG 150-199 mg/dL Borderline high TRIG 200-500 mg/dL High TRIG greater than 500 mg/dL Very high Standard traceable to the Center for Disease Conrtrol and Prevention (CDC) test method. PERFORMED BY: [place] [address] PATHOLOGIST RESEARCH SPECIALIST SHERLY TATUM M.D. Performed By: #### P T, FIB-C #### [address] Arterial Blood Gason 024 ABG Base Excess -0.1 mmol/L Normal -3.0-3.0 [facility] Comment on above: Performed By: #### B TONGUE AND QUARTER STITCHER #### [address] ABG Frac Inspired O2 30 % Normal [facility] Comment on above: Performed By: #### B TONGUE AND QUARTER STITCHER #### [address] ABG Oxygen Content 6.4 mmol/L Low 6.6-9.7 [facility] Comment on above: Performed By: #### B TONGUE AND QUARTER STITCHER #### [address] ABG Oxygen Saturation 96.3 % Normal 95.0-100.0 [facility] Comment on above: Performed By: #### B TONGUE AND QUARTER STITCHER #### [address] ABG PCO2 36.8 mm[Hg] Normal 35.0-45.0 [facility] Comment on above: Performed By: #### B TONGUE AND QUARTER STITCHER #### [address] ABG PH 7.43 Normal 7.35-7.45 [facility] Comment on above: Performed By: #### B TONGUE AND QUARTER STITCHER #### [address] ABG PO2 84.2 mm[Hg] Normal 80.0-100.0 [facility] Comment on above: Performed By: #### B TONGUE AND QUARTER STITCHER #### [address] Respiratory Critical NO Normal [facility] Comment on above: Result Comment: PERF ORMED BY: [place] [address] PATHOLOGIST RESEARCH SPECIALIST SHERLY TATUM M.D. Performed By: #### B TONGUE AND QUARTER STITCHER #### [address] Arterial Blood GasOrdered By : NO PHYSICIAN on 08-17-2024 CO2 [Moles/Vol] 25.1 mmol/L Normal 23.0-27.0 [facility] Comment on above: Performed By: #### B TONGUE AND QUARTER STITCHER #### [address] HCO3 (Bld) [Moles/Vol] 24.0 mmol/L Normal 23.0-29.0 [facility] Comment on above: Performed By: #### B TONGUE AND QUARTER STITCHER #### [address] Capillary blood glucose feliciano urement by glucometer (mass/volume)Ordered By: Mike Verduzco on 08-17-2024 Glucose [Mass/Vol] 98 mg/dL Normal [facility] Comment on above: Random Glucose Refer ence Range is dependent on time and content of last meal. Glucose of more than 200 mg/dL in a nonstressed, ambulatory subject supports the diagnosis of Diabetes Mellitus. Result Comment: [employer] [facility] Glucose Reference Range is dependent on time and content of last meal. Glucose of more than 200 mg/dL in a nonstressed, ambulatory subject supports the diagnosis of Diabetes Mellitus. PERFORMED BY: [place] [address] PATHOLOGIST RESEARCH SPECIALIST SHERLY TATUM M.D. Performed By: #### P T, FIB-C #### [address] Complete Blood Count Auto Di ffon 08-17-2024 Basophils (Bld) [#/Vol] 0.0 10*3/uL Normal 0.0-0.2 [facility] Comment on above: Result Comment: PERF ORMED BY: [place] [address] PATHOLOGIST RESEARCH SPECIALIST SHERLY TATUM M.D. Performed By: #### P T, FIB-C #### [address] Basophils/100 WBC (Bld) 0.9 % Normal . [facility] Comment on above: Performed By: #### P T, FIB-C #### [address] Eosinophils (Bld) [#/Vol] 0.1 10*3/uL Normal 0.0-0.45 [facility] Comment on above: Performed By: #### P T, FIB-C #### [address] Eosinophils/100 WBC (Bld) 2.6 % Normal . [facility] Comment on above: Performed By: #### P T, FIB-C #### [address] Erythrocyte distribution width (RBC) [Ratio] 16.7 % High 11.9-15.3 [facility] Comment on above: Performed By: #### P T, FIB-C #### [address] Hematocrit (Bld) [Volume fraction] 28.9 % Low 34.0-46.4 [facility] Comment on above: Performed By: #### P T, FIB-C #### [address] Hemoglobin (Bld) [Mass/Vol] 9.8 g/dL Low 11.8-15.4 [facility] Comment on above: Performed By: #### P T, FIB-C #### [address] Lymphocytes (Bld) [#/Vol] 1.6 10*3/uL Normal 1.00-4.8 [facility] Comment on above: Performed By: #### P T, FIB-C #### [address] Lymphocytes/100 WBC (Bld) 28.8 % Normal . [facility] Comment on above: Performed By: #### P T, FIB-C #### [address] MCH (RBC) [Entitic mass] 32.9 pg Normal 24.7-34.3 [facility] Comment on above: Performed By: #### P T, FIB-C #### [place] [address] [place] MCV (RBC) [Entitic vol] 97.4 fL Normal 80-100 [facility] Comment on above: Performed By: #### P T, FIB-C #### [address] Mean Corpuscular HGB Conc 33.8 g/dL Normal 32.0-35.0 [facility] Comment on above: Performed By: #### P T, FIB-C #### [address] Monocytes (Bld) [#/Vol] 0.9 10*3/uL High 0.0-0.8 [facility] Comment on above: Performed By: #### P T, FIB-C #### [address] Monocytes/100 WBC (Bld) 16.3 % Normal . [facility] Comment on above: Performed By: #### P T, FIB-C #### [address] Neutrophils (Bld) [#/Vol] 2.9 10*3/uL Normal 1.8-7.7 [facility] Comment on above: Performed By: #### P T, FIB-C #### [address] Neutrophils/100 WBC (Bld) 51.4 % Normal . [facility] Comment on above: Performed By: #### P T, FIB-C #### [address] NRBC% 0.1 /100{WBC} Normal 0-0.5 [facility] Comment on above: Performed By: #### P T, FIB-C #### [address] Platelet mean volume (Bld) [Entitic vol] 8.2 fL Normal 6.3-10.[address] [facility] Comment on above: Performed By: #### P T, FIB-C #### [address] [place] [address] [place] Platelets (Bld) [#/Vol] 108 10*3/uL Low 150-450 [facility] Comment on above: Performed By: #### P T, FIB-C #### [address] RBC (Bld) [#/Vol] 2.97 10*6/uL Low 3.60-5.00 The [facility] Comment on above: Performed By: #### P T, FIB-C #### [address] WBC (Bld) [#/Vol] 5.6 10*3/uL Normal 3.8-11.6 The [facility] Comment on above: Performed By: #### P T, FIB-C #### [address] No Panel InformationOrdered By: NO PHYSICIAN on 08-17-2024 Arterial Blood Base Excess -0.1 mmol/L -3.0-3.0 [facility] Arterial Blood Oxygen Content 6.4 mmol/L Low 6.6-9.7 [facility] Arterial Blood Oxygen Saturation 96.3 % 95.0-100.0 [facility] Arterial Blood Partial Pressure CO2 36.8 mm[Hg] 35.0-45.0 [facility] Arterial Blood Partial Pressure O2 84.2 mm[Hg] 80.0-100.0 [facility] Arterial Blood pH 7.43 7.35-7.45 [facility] Blood Gas Critical Value No [facility] FiO2 30 % [facility] Renal Function Panelon 08-17 Albumin [Mass/Vol] 2.8 g/dL Low 3.5-5.7 The [facility] Comment on above: Performed By: #### P T, FIB-C #### [address] Anion gap [Moles/Vol] 12.8 mmol/L Normal 6.0-15.[address] [facility] Comment on above: Performed By: #### P T, FIB-C #### [address] Calcium [Mass/Vol] 8.1 mg/dL Low 8.6-10.3 The [facility] Comment on above: Performed By: #### P T, FIB-C #### [facility] [address] Chloride [Moles/Vol] 110 mmol/L High 98-107 The [facility] Comment on above: Performed By: #### P T, FIB-C #### [address] CO2 [Moles/Vol] 26.9 mmol/L Normal 21.0-31.0 The [facility] Comment on above: Performed By: #### P T, FIB-C #### [address] Creatinine [Mass/Vol] 2.87 mg/dL High 0.60-1.20 The [facility] Comment on above: Performed By: #### P T, FIB-C #### [place] [address] [place] Creatinine Clr Calc Pharmacy 35.34 Normal The [facility] Comment on above: Result Comment: PERF ORMED BY: [place] [address] PATHOLOGIST RESEARCH SPECIALIST SHERLY TATUM M.D. Performed By: #### P T, FIB-C #### [address] GFR/1.73 sq M.predicted MDRD (S/P/Bld) [Vol rate/Area] 21.662 mL/min/{1.73_m2} Normal The [facility] Comment on above: Performed By: #### P T, FIB-C #### [address] Glucose [Mass/Vol] 110 mg/dL High 70-100 The [facility] Comment on above: Result Comment: [employer] Glucose Reference Range is dependent on time and content of last meal. Glucose of more than 200 mg/dL in a nonstressed, ambulatory subject supports the diagnosis of Diabetes Mellitus. ADA recommended reference range Performed By: #### P T, FIB-C #### [facility] [address] [place] [address] Phosphate [Mass/Vol] 5.3 mg/dL High 2.5-4.5 The [facility] Comment on above: Performed By: #### P T, FIB-C #### [address] Potassium [Moles/Vol] 3.7 mmol/L Normal 3.5-5.1 The [facility] Comment on above: Performed By: #### P T, FIB-C #### [address] Sodium [Moles/Vol] 146 mmol/L High 136-145 The [facility] Comment on above: Performed By: #### P T, FIB-C #### [address] Urea nitrogen [Mass/Vol] 36 mg/dL High 7-25 The [facility] Comment on above: Performed By: #### P T, FIB-C #### [address] XR chest 1V portableon 08-17 XR chest 1V portable [facility] Main [place] [address] [place] [address] XRay Report Signed Patient: German Jacob MR#: [id number] : 1990 Acct:[id number] Age/Sex: 33 / F ADM Date: 08/12/24 Loc: Room: [address] [place] [address] Type: ADM IN Attending Dr: Mike Verduzco MD Copies to: MD Mike Solano MD Ordering Provider: Renny Multani MD Date of Service: 08/17/24 XR/XR chest 1V portable: pneumonia; respiratory failure Plain film chest Single view HISTORY: Daily assessment ventilated patient COMPARISON: 08/16/24 FINDINGS: SUPPORT DEVICES: Stable POSTSURGICAL CHANGES: None HEART: Stable PULMONARY JOSEFINA: Stable MEDIASTINUM: Unremarkable LUNGS AND PLEURA: A similar [id number] the basilar pleural-parenchymal changes. BONY STRUCTURES: Intact ADDITIONAL FINDINGS None XR/XR chest 1V portable IMPRESSION: Stable chest Impression dictated by: Pasha Vora M.D.08/17/2024 6:23 AM Dictation Location: [place] [address] Transcribed By: [facility] 08/17/24622 Dictated By: Pasha Vora DO 08/17/2421 Signed By: 08/17/2423 Normal The [facility] Arterial Blood Gason 024 ABG Base Excess -0.8 mmol/L Normal -3.0-3.0 The [facility] Comment on above: Performed By: #### A BG #### Point of Care testing , ABG Frac Inspired O2 30 % Normal The [facility] Comment on above: Performed By: #### A BG #### Point of Care testing , ABG Oxygen Content 6.0 mmol/L Low 6.6-9.7 The [facility] Comment on above: Performed By: #### A BG #### Point of Care testing , ABG Oxygen Saturation 96.3 % Normal 95.0-100.0 The [facility] Comment on above: Performed By: #### A BG #### Point of Care testing , ABG PCO2 38.8 mm[Hg] Normal 35.0-45.0 The [facility] Comment on above: Performed By: #### A BG #### Point of Care testing , ABG PEEP 5 Normal The [facility] Comment on above: Performed By: #### A BG #### Point of Care testing , ABG PH 7.41 Normal 7.35-7.45 The [facility] Comment on above: Performed By: #### A BG #### Point of Care testing , ABG PO2 87.6 mm[Hg] Normal 80.0-100.0 The [facility] Comment on above: Performed By: #### A BG #### Point of Care testing , ABG TV 450 mL Normal The [facility] Comment on above: Performed By: #### A BG #### Point of Care testing , CO2 [Moles/Vol] 25.0 mmol/L Normal 23.0-27.0 The [facility] Comment on above: Performed By: #### A BG #### Point of Care testing , HCO3 (Bld) [Moles/Vol] 23.8 mmol/L Normal 23.0-29.0 T he [facility] Comment on above: Performed By: #### A BG #### Point of Care testing , Respiratory Critical Normal The [facility] Comment on above: Result Comment: Crit ical Value called on: 08/16/2024 at 04:37 PERFORMED BY: [place] [address] PATHOLOGIST RESEARCH SPECIALIST SHERLY TATUM M.D. Performed By: #### A BG #### Point of Care testing , Set Respiratory Rate 12 Normal The [facility] Comment on above: Performed By: #### A BG #### Point of Care testing , VBG Draw Site Right Radial Normal The [facility] Comment on above: Performed By: #### A BG #### Point of Care testing , Ventilator Mode AC Normal [facility] Comment on above: Performed By: #### A BG #### Point of Care testing , Complete Blood Count Auto Di ffon 08-16-2024 Basophils (Bld) [#/Vol] 0.0 10*3/uL Normal 0.0-0.2 The [facility] Comment on above: Result Comment: PERF ORMED BY: [place] [address] PATHOLOGIST RESEARCH SPECIALIST SHERLY TATUM M.D. Performed By: #### [employer]ER #### [place] [address] [place] Basophils/100 WBC (Bld) 0.7 % Normal . The [facility] Comment on above: Performed By: #### B [employer] #### [address] Eosinophils (Bld) [#/Vol] 0.1 10*3/uL Normal 0.0-0.45 The [facility] Comment on above: Performed By: #### B [employer] #### [address] Eosinophils/100 WBC (Bld) 1.4 % Normal . The [facility] Comment on above: Performed By: #### B [employer] #### [address] Erythrocyte distribution width (RBC) [Ratio] 16.7 % High 11.9-15.3 The [facility] Comment on above: Performed By: #### B [employer] #### [address] Hematocrit (Bld) [Volume fraction] 26.2 % Low 34.0-46.4 The [facility] Comment on above: Performed By: #### B [employer] #### [address] Hemoglobin (Bld) [Mass/Vol] 8.9 g/dL Low 11.8-15.4 The [facility] Comment on above: Performed By: #### B [employer]ER #### [address] Lymphocytes (Bld) [#/Vol] 1.5 10*3/uL Normal 1.00-4.8 The [facility] Comment on above: Performed By: #### B [employer]ER #### [address] Lymphocytes/100 WBC (Bld) 29.5 % Normal . The [facility] Comment on above: Performed By: #### B [employer]ER #### [address] MCH (RBC) [Entitic mass] 33.5 pg Normal 24.7-34.3 The [facility] Comment on above: Performed By: #### B [employer]ER #### [address] MCV (RBC) [Entitic vol] 98.5 fL Normal 80-100 [facility] Comment on above: Performed By: #### B [employer] #### [address] Mean Corpuscular HGB Conc 34.0 g/dL Normal 32.0-35.0 [facility] Comment on above: Performed By: #### B [employer] #### [address] Monocytes (Bld) [#/Vol] 0.9 10*3/uL High 0.0-0.8 [facility] Comment on above: Performed By: #### B [employer]ER #### [address] Monocytes/100 WBC (Bld) 17.4 % Normal . The [facility] Comment on above: Performed By: #### B [employer]ER #### [address] Neutrophils (Bld) [#/Vol] 2.6 10*3/uL Normal 1.8-7.7 [facility] Comment on above: Performed By: #### B [employer]ER #### [address] Neutrophils/100 WBC (Bld) 51.0 % Normal . [facility] Comment on above: Performed By: #### B [employer]ITCHER #### [address] NRBC% 0.1 /100{WBC} Normal 0-0.5 The [facility] Comment on above: Performed By: #### B [employer]UE [employer]AR[employer]ITCHER #### [address] Platelet mean volume (Bld) [Entitic vol] 9.3 fL Normal 6.3-10.[address] [facility] Comment on above: Performed By: #### B [employer]ONGUE [employer]AR[employer]ITCHER #### [address] Platelets (Bld) [#/Vol] 108 10*3/uL Low 150-450 [facility] Comment on above: Performed By: #### B [employer]ER #### [place] [address] [place] RBC (Bld) [#/Vol] 2.66 10*6/uL Low 3.60-5.00 The [facility] Comment on above: Performed By: #### B [employer]ONGUE [employer] QUAR[employer]ITCHER #### [address] WBC (Bld) [#/Vol] 5.0 10*3/uL Normal 3.8-11.6 The [facility] Comment on above: Performed By: #### B TONGUE [employer] QUARTER STITCHER #### [place] [id number] [facility] ECG 12 lead ECGon 08-16-2024 ECG 12 lead ECG [facility] Main [place] [address] [place] [address] Electrocardiograph Report Signed Patient: German Jacob MR#: [id number] : 1990 Acct:[id number] Age/Sex: 33 / F ADM Date: 08/12/24 Loc: Room: [address] [place] [address] Type: DIS IN Attending Dr: Chidi Rick MD Ordering Provider: Chidi Rick MD Date of Service: 08/16/24 ECG/ECG 12 lead ECG: pt evaluation Copies to: Test Reason : Blood Pressure : 142/92 mmHG Vent. Rate : 81 BPM Atrial Rate : 81 BPM P-R Int : 134 ms QRS Dur : 96 ms QT Int : 394 ms P-R-T Axes : 74 85 62 degrees QTcB Int : 457 ms Normal sinus rhythm Anterior infarct , age undetermined Confirmed by Leyla Koo ([id number]) on 08/25/2024 3:27:11 PM Referred By: Electronically Signed By: Leyla Koo Transcribed By: MUS Signed By Leyla Koo MD 4 1527 Normal The [facility] Glucose Poct Glucometerson 0 08-16-2024 Glucose [Mass/Vol] 84 mg/dL Normal The [facility] Comment on above: Result Comment: [employer] Glucose Reference Range is dependent on time and content of last meal. Glucose of more than 200 mg/dL in a nonstressed, ambulatory subject supports the diagnosis of Diabetes Mellitus. PERFORMED BY: [place] [address] PATHOLOGIST RESEARCH SPECIALIST SHERLY TATUM M.D. Performed By: #### C BC #### [address] Magnesiumon 08-16-2024 Magnesium [Mass/Vol] 2.7 mg/dL Normal 1.9-2.7 The [facility] Comment on above: Result Comment: PERF ORMED BY: [place] [address] PATHOLOGIST RESEARCH SPECIALIST SHERLY TATUM M.D. Performed By: #### B [employer]ONG[employer]AR[employer]ITCHER #### [address] No Panel InformationOrdered By: Mike Verduzco on 08-16-2024 Blood Gas PEEP 5 cmH2O [facility] Blood Gas Sample Site Right radial F [facility] Blood Gas Set Respiration Rate 12 [facility] Blood Gas Tidal Volume 450 mL [facility] Blood Gas Ventilator Mode Ac [facility] Renal Function Panelon 08-16 Albumin [Mass/Vol] 2.8 g/dL Low 3.5-5.7 The [facility] Comment on above: Performed By: #### B [employer]ONG[employer]AR[employer]ITCHER #### [address] Anion gap [Moles/Vol] 10.1 mmol/L Normal 6.0-15.0 Th e [facility] Comment on above: Performed By: #### B [employer]ONG[employer]AR[employer]ER #### [address] Calcium [Mass/Vol] 7.7 mg/dL Low 8.6-10.3 The [facility] Comment on above: Performed By: #### B [employer]ONG[employer] QUAR[employer]ER #### [address] Chloride [Moles/Vol] 110 mmol/L High 98-107 [facility] Comment on above: Performed By: #### B TONGUE [employer] QUARTER STITCHER #### [address] CO2 [Moles/Vol] 24.7 mmol/L Normal 21.0-31.0 The [facility] Comment on above: Performed By: #### B TONGUE [employer]AR[employer]ITCHER #### [address] Creatinine [Mass/Vol] 3.05 mg/dL High 0.60-1.20 The [facility] Comment on above: Performed By: #### B TONGUE [employer] QUARTER [employer]ITCHER #### [place] [address] [place] Creatinine Clr Calc Pharmacy 32.75 Normal [facility] Comment on above: Performed By: #### B TONGUE [employer] QUARTER [employer]ITCHER #### [place] [address] [place] GFR/1.73 sq M.predicted MDRD (S/P/Bld) [Vol rate/Area] 20.137 mL/min/{1.73_m2} Normal The [facility] Comment on above: Performed By: #### B TONGUE [employer] QUARTER STITCHER #### [address] Glucose [Mass/Vol] 102 mg/dL High 70-100 [facility] Comment on above: Result Comment: [facility] Glucose Reference Range is dependent on time and content of last meal. Glucose of more than 200 mg/dL in a nonstressed, ambulatory subject supports the diagnosis of Diabetes Mellitus. ADA recommended reference range Performed By: #### B TONGUE [employer] QUARTER STITCHER #### [place] [address] [place] Phosphate [Mass/Vol] 3.9 mg/dL Normal 2.5-4.5 [facility] Comment on above: Performed By: #### B TONGUE [employer] QUARTER [employer]ITCHER #### [place] [address] [place] Potassium [Moles/Vol] 3.8 mmol/L Normal 3.5-5.1 [facility] Comment on above: Performed By: #### B TONGUE [employer] QUARTER [employer]ITCHER #### [place] [address] [place] Sodium [Moles/Vol] 141 mmol/L Normal 136-145 [facility] Comment on above: Performed By: #### B TONGUE [employer] QUARTER STITCHER #### [address] Urea nitrogen [Mass/Vol] 39 mg/dL High 7-25 [facility] Comment on above: Performed By: #### B TONGUE [employer] QUARTER STITCHER #### [address] Triglycerideson 08-16-2024 Triglyceride [Mass/Vol] 88 mg/dL Normal 35-149 [facility] Comment on above: Result Comment: TRIG ATP III CLASSIFICATION TRIG less than 150 mg/dL Normal TRIG 150-199 mg/dL Borderline high TRIG 200-500 mg/dL High TRIG greater than 500 mg/dL Very high Standard traceable to the Center for Disease Conrtrol and Prevention (CDC) test method. PERFORMED BY: [place] [address] PATHOLOGIST RESEARCH SPECIALIST SHERLY TATUM M.D. Performed By: #### P T, FIB-C #### [address] XR chest 1V portableon 08-16 XR chest 1V portable [facility] Main [place] [address] [place] [address] XRay Report Signed Patient: German Jacob MR#: [id number] : 1990 Acct:[id number] Age/Sex: 33 / F ADM Date: 08/12/24 Loc: Room: [address] [place] [address] Type: ADM IN Attending Dr: Mike Verduzco MD Copies to: MD Mike Solano MD Ordering Provider: Renny Multani MD Date of Service: 08/16/24 XR/XR chest 1V portable: pneumonia; respiratory failure PORTABLE AP ERECT CHEST 0340 hours CLINICAL HISTORY: Respiratory distress on ventilator COMPARISON: 08/15/2024 Tubes and lines are unchanged in position. Bilateral pleural parenchymal changes are visualized, improving on the left and worsening on the right. Neither hemidiaphragm is well seen. No pneumothorax is identified. The cardiac and mediastinal contours are stable. XR/XR chest 1V portable IMPRESSION: CONTINUED PLEURAL-PARENCHYMAL CHANGES, DESCRIBED. Impression dictated by: Shavon Astorga M.D.08/16/2024 7:07 AM Dictation Location: [place] [address] Transcribed By: DES 08/16/24706 Dictated By: Shavon Astorga MD 08/16/24704 Signed By: 08/16/24706 Normal The [facility] Alanine aminotransferase [En zymatic activity/volume] in Serum or PlasmaOrdered By: Mike Verduzco on 08-15-2024 ALT [Catalytic activity/Vol] 143 U/L High 7-52 [facility] Comment on above: Performed By: #### P HOS, MG #### [facility] [address] [place] [address] Alkaline phosphatase [Enzyma tic activity/volume] in Serum or PlasmaOrdered By: Mike Verduzco on 08-15-2024 ALP [Catalytic activity/Vol] 68 U/L Normal 34-104 [facility] Comment on above: Performed By: #### P HOS, MG #### [facility] [address] [place], [place] [id number] [facility] Arterial Blood Gason 024 ABG Base Excess -1.1 mmol/L Normal -3.0-3.0 The [facility] Comment on above: Performed By: #### I SGLU #### Point of Care testing , ABG Frac Inspired O2 30 % Normal [facility] Comment on above: Performed By: #### I SGLU #### Point of Care testing , ABG Oxygen Content 5.8 mmol/L Low 6.6-9.7 [facility] Comment on above: Performed By: #### I SGLU #### Point of Care testing , ABG Oxygen Saturation 97.2 % Normal 95.0-100.0 [facility] Comment on above: Performed By: #### I SGLU #### Point of Care testing , ABG PCO2 39.8 mm[Hg] Normal 35.0-45.0 [facility] Comment on above: Performed By: #### I SGLU #### Point of Care testing , ABG PEEP 5 Normal [facility] Comment on above: Performed By: #### I SGLU #### Point of Care testing , ABG PH 7.39 Normal 7.35-7.45 [facility] Comment on above: Performed By: #### I SGLU #### Point of Care testing , ABG PO2 95.5 mm[Hg] Normal 80.0-100.0 [facility] Comment on above: Performed By: #### I SGLU #### Point of Care testing , ABG TV 450 mL Normal [facility] Comment on above: Performed By: #### I SGLU #### Point of Care testing , CO2 [Moles/Vol] 24.9 mmol/L Normal 23.0-27.0 The [facility] Comment on above: Performed By: #### I SGLU #### Point of Care testing , HCO3 (Bld) [Moles/Vol] 23.7 mmol/L Normal 23.0-29.0 T he [facility] Comment on above: Performed By: #### I SGLU #### Point of Care testing , Respiratory Critical Normal [facility] Comment on above: Result Comment: Crit ical Value called on: 08/15/2024 at 03:49 PERFORMED BY: [facility] [address] [place] [address] PATHOLOGIST RESEARCH SPECIALIST SHERLY TATUM M.D. Performed By: #### I SGLU #### Point of Care testing , Set Respiratory Rate 12 Normal [facility] Comment on above: Performed By: #### I SGLU #### Point of Care testing , VBG Draw Site Left Radial Normal [facility] Comment on above: Performed By: #### I SGLU #### Point of Care testing , Ventilator Mode AC Normal [facility] Comment on above: Performed By: #### I SGLU #### Point of Care testing , Aspartate aminotransferase [ Enzymatic activity/volume] in Serum or PlasmaOrdered By: Mike Verduzco on 08-15-2024 AST [Catalytic activity/Vol] 150 U/L High 13-39 [facility] Comment on above: Performed By: #### P HOS, MG #### [address] Bilirubin.total [Mass/volume ] in Serum or PlasmaOrdered By: Mike Verduzco on 08-15-2024 Bilirubin [Mass/Vol] 0.5 mg/dL Normal 0.3-1.0 [facility] Comment on above: Performed By: #### P HOS, MG #### [address] Complete Blood Count Auto Di ffon 08-15-2024 Basophils (Bld) [#/Vol] 0.0 10*3/uL Normal 0.0-0.2 [facility] Comment on above: Result Comment: PERF ORMED BY: [place] [address] PATHOLOGIST RESEARCH SPECIALIST SHERLY TATUM M.D. Performed By: #### C BC #### [address] Basophils/100 WBC (Bld) 0.4 % Normal . [facility] Comment on above: Performed By: #### C BC #### [address] Eosinophils (Bld) [#/Vol] 0.0 10*3/uL Normal 0.0-0.45 [facility] Comment on above: Performed By: #### C BC #### [address] Eosinophils/100 WBC (Bld) 0.9 % Normal . [facility] Comment on above: Performed By: #### C BC #### [address] Erythrocyte distribution width (RBC) [Ratio] 16.4 % High 11.9-15.3 [facility] Comment on above: Performed By: #### C BC #### [address] Hematocrit (Bld) [Volume fraction] 25.4 % Low 34.0-46.4 [facility] Comment on above: Performed By: #### C BC #### [facility] [address] Hemoglobin (Bld) [Mass/Vol] 8.4 g/dL Low 11.8-15.4 [facility] Comment on above: Performed By: #### C BC #### [address] Lymphocytes (Bld) [#/Vol] 1.1 10*3/uL Normal 1.00-4.8 [facility] Comment on above: Performed By: #### C BC #### [address] Lymphocytes/100 WBC (Bld) 21.2 % Normal . [facility] Comment on above: Performed By: #### C BC #### [address] MCH (RBC) [Entitic mass] 33.2 pg Normal 24.7-34.3 [facility] Comment on above: Performed By: #### C BC #### [address] MCV (RBC) [Entitic vol] 99.9 fL Normal 80-100 [facility] Comment on above: Performed By: #### C BC #### [address] Mean Corpuscular HGB Conc 33.2 g/dL Normal 32.0-35.0 [facility] Comment on above: Performed By: #### C BC #### [address] Monocytes (Bld) [#/Vol] 0.6 10*3/uL Normal 0.0-0.8 [facility] Comment on above: Performed By: #### C BC #### [address] Monocytes/100 WBC (Bld) 12.6 % Normal . [facility] Comment on above: Performed By: #### C BC #### [address] Neutrophils (Bld) [#/Vol] 3.3 10*3/uL Normal 1.8-7.7 [facility] Comment on above: Performed By: #### C BC #### [address] Neutrophils/100 WBC (Bld) 64.9 % Normal . [facility] Comment on above: Performed By: #### C BC #### [address] NRBC% 0.1 /100{WBC} Normal 0-0.5 [facility] Comment on above: Performed By: #### C BC #### [address] Platelet mean volume (Bld) [Entitic vol] 9.3 fL Normal 6.3-10.[address] [facility] Comment on above: Performed By: #### C BC #### [address] Platelets (Bld) [#/Vol] 89 10*3/uL Low 150-450 [facility] Comment on above: Performed By: #### C BC #### [address] RBC (Bld) [#/Vol] 2.54 10*6/uL Low 3.60-5.00 The Located [facility] Comment on above: Performed By: #### C BC #### [address] WBC (Bld) [#/Vol] 5.0 10*3/uL Normal 3.8-11.6 The [facility] Comment on above: Performed By: #### C BC #### [address] Comprehensive Metabolic Pane richie 08-15-2024 Albumin [Mass/Vol] 2.8 g/dL Low 3.5-5.7 The [facility] Comment on above: Performed By: #### P HOS, MG #### [facility] [address] [place] [address] [place] Anion gap [Moles/Vol] 8.3 mmol/L Normal 6.0-15.0 The [facility] Comment on above: Performed By: #### P HOS, MG #### [facility] [address] Calcium [Mass/Vol] 7.2 mg/dL Low 8.6-10.3 The [facility] Comment on above: Performed By: #### P HOS, MG #### [facility] [address] [place] [address] [place] Chloride [Moles/Vol] 111 mmol/L High 98-107 The [facility] Comment on above: Performed By: #### P HOS, MG #### [facility] [address] [place] [address] [place] CO2 [Moles/Vol] 24.7 mmol/L Normal 21.0-31.0 The [facility] Comment on above: Performed By: #### P HOS, MG #### [facility] [address] [place] [address] [place] Creatinine [Mass/Vol] 3.24 mg/dL High 0.60-1.20 The [facility] Comment on above: Performed By: #### P HOS, MG #### [facility] [address] [place] [address] [place] Creatinine Clr Calc Pharmacy 30.83 Normal The [facility] Comment on above: Performed By: #### P HOS, MG #### [place] [id number] [place] GFR/1.73 sq M.predicted MDRD (S/P/Bld) [Vol rate/Area] 18.728 mL/min/{1.73_m2} Normal The [facility] Comment on above: Performed By: #### P HOS, MG #### [place] [address] [place] Glucose [Mass/Vol] 91 mg/dL Normal 70-100 The [facility] Comment on above: Result Comment: [employer] Glucose Reference Range is dependent on time and content of last meal. Glucose of more than 200 mg/dL in a nonstressed, ambulatory subject supports the diagnosis of Diabetes Mellitus. ADA recommended reference range Performed By: #### P HOS, MG #### [address] Potassium [Moles/Vol] 4.0 mmol/L Normal 3.5-5.1 The [facility] Comment on above: Performed By: #### P HOS, MG #### [address] Sodium [Moles/Vol] 140 mmol/L Normal 136-145 The [facility] Comment on above: Performed By: #### P HOS, MG #### [address] Urea nitrogen [Mass/Vol] 40 mg/dL High 7-25 The [facility] Comment on above: Performed By: #### P HOS, MG #### [address] Glucose Poct Glucometerson 0 08-15-2024 Glucose [Mass/Vol] 90 mg/dL Normal The [facility] Comment on above: Result Comment: [facility] Glucose Reference Range is dependent on time and content of last meal. Glucose of more than 200 mg/dL in a nonstressed, ambulatory subject supports the diagnosis of Diabetes Mellitus. PERFORMED BY: [place] [address] PATHOLOGIST RESEARCH SPECIALIST SHERLY TATUM M.D. Performed By: #### C BC #### [address] Glucose [Mass/Vol] 93 mg/dL Normal The [facility] Comment on above: Result Comment: [employer] Glucose Reference Range is dependent on time and content of last meal. Glucose of more than 200 mg/dL in a nonstressed, ambulatory subject supports the diagnosis of Diabetes Mellitus. PERFORMED BY: [place] [address] PATHOLOGIST RESEARCH SPECIALIST SHERLY ATTUM M.D. Performed By: #### P T, FIB-C #### [facility] [address] [place] [address] Glucose [Mass/Vol] 96 mg/dL Normal The [facility] Comment on above: Result Comment: [facility] Glucose Reference Range is dependent on time and content of last meal. Glucose of more than 200 mg/dL in a nonstressed, ambulatory subject supports the diagnosis of Diabetes Mellitus. PERFORMED BY: [place] [address] PATHOLOGIST RESEARCH SPECIALIST SHERLY TATUM M.D. Performed By: #### I SGLU #### Point of Care testing , Haptoglobinon 08-15-2024 Haptoglobin 132 mg/dL Normal 44-215 The [facility] Comment on above: Result Comment: PERF ORMED BY: [place] [address] PATHOLOGIST RESEARCH SPECIALIST SHERLY TATUM M.D. Performed By: #### C BC #### [address] Haptoglobin [Mass/volume] in Serum or PlasmaOrdered By: Rolo Perez on 08-15-2024 Haptoglobin [Mass/Vol] 132 mg/dL 44-215 [facility] Richie 08-15-2024 L Specimen: [id number] Received: 08/15/24 Status: SOUT Req Num: [id number] Spec Type: Impression Subm Dr: Mike Verduzco MD Tissues: PATHPER Procedures: PATHREVIEW Age/ Patient Sex Location Account Attending Physician German Jacob 33/F [id number] Mike Verduzco MD SPEC NUM: [id number] RECD: 08/15/24 STATUS: SOUT REQ NUM: [id number] PORFIRIO: 08/15/24- SUBM DR: Mike Verduzco MD ENTERED: 08/15/[address]: VERA FAMILY PHYSICIAN SPEC TYPE: Impression DEPT: [place] ENTERED BY: [id number] RECV BY: [id number] ORDERED: PATHREVIEW ORDERED: PATHREVIEW Pathologist Review Hypochromic microcytic anemia with occasional spherocytes, thrombocytopenia and relative lymphocytosis. CPT code 02975 CBC Date Time Test Result Flag (u) Normal Range 08/13/24 0410 Poik Slight Aniso Slight Oval Slight Stomato Slight Plt Est Normal Normal Plt Morphology Normal Normal 08/15/24 0450 WBC 5.0 3.8-11.6 X10E3/uL RBC 2.54 L 3.60-5.00 X10E6/uL HGB 8.4 L 11.8-15.4 g/dL HCT 25.4 L 34.0-46.4 % MCV 99.9 80-100 fl MCH 33.2 24.7-34.3 pg MCHC 33.2 32.0-35.0 g/dL RDW 16.4 H 11.9-15.3 % Plt 89 L 150-450 x10E3/uL MPV 9.3 6.3-10.7 fl Neut % (Auto) 64.9 . % Specimen: [id number] Received: 08/15/24 Status: RADHA Mae Num: [id number] Spec Type: Impression Subm Dr: Mike Verduzco MD Tissues: PATHPER Procedures: PATHREVIEW Patient: German Jacob Marcio [id number] (Continued) Specimen: [id number] Received: 08/15/24 (Continued) CBC (Continued) Signed (signature on file) Suleman Lemus MD 08/15/24 1401 Specimen: [id number] Received: 08/15/24 Status: RADHA Wall Num: [id number] Spec Type: Impression Subm Dr: Mike Verduzco MD Tissues: PATHPER Procedures: PATHREVIEW Patient: German Jacob [id number] (Continued) Specimen: [id number] Received: 08/15/24 (Continued) CBC (Continued) Lymp % (Auto) 21.2 . % Hancock % (Auto) 12.6 . % Eos % (Auto) 0.9 . % Baso % (Auto) 0.4 . % NRBC% 0.1 0-0.5 /100 WBC Neut # (Auto) 3.3 1.8-7.7 x10E3/uL Lymph # (Auto) 1.1 1.00-4.8 x10E3/uL Hancock # (Auto) 0.6 0.0-0.8 x10E3/uL Eos # (Auto) 0.0 0.0-0.45 x10E3/uL Baso# (Auto) 0.0 0.0-0.2 x10E3/uL Specimen: [id number] Received: 08/15/24 Status: RADHA Wall Num: [id number] Spec Type: Impression Subm Dr: Mike Verduzco MD Tissues: PATHPER Procedures: PATHREVIEW Patient: ReneGerman E [id number] (Continued) Signed (signature on file) Suleman Lemus MD 08/15/24 1401 Normal [facility] LDH Lactate Dehydrogenaseon 08-15-2024 LDH Lactate Dehydrogenase 296 U/L High 140-271 The [facility] Comment on above: Result Comment: PERF ORMED BY: [place] [address] PATHOLOGIST RESEARCH SPECIALIST SHERLY TATUM M.D. Performed By: #### C BC #### [place] [id number] [facility] Lactate dehydrogenase [Enzym atic activity/volume] in Serum or Plasma by Lactate to pyOrdered By: Rolo Perez on 08-15-2024 LDH Lactate to pyruvate reaction [Catalytic activity/Vol] 296 U/L High 140-271 [facility] Magnesiumon 08-15-2024 Magnesium [Mass/Vol] 3.0 mg/dL Significant change up 1.9-2.7 The [facility] Comment on above: Performed By: #### C BC #### [place] [id number] [facility] No Panel InformationOrdered By: Rolo Perez on 08-15-2024 Slides for Pathologist Review Ordered path review [facility] Pathologist Slide Reviewon 0 08-15-2024 Pathologist Slide Review Ordered Path Review Normal The [facility] Comment on above: Result Comment: PERF ORMED BY: [place] [address] PATHOLOGIST RESEARCH SPECIALIST SHERLY TATUM M.D. Performed By: #### C BC #### [place] [id number] [facility] Protein [Mass/volume] in Ser um or PlasmaOrdered By: Mike Verduzco on 08-15-2024 Protein [Mass/Vol] 5.6 g/dL Low 6.4-8.9 [facility] Comment on above: Performed By: #### P HOS, MG #### [address] Renal Function Panelon 08-15 Phosphate [Mass/Vol] 4.3 mg/dL Normal 2.5-4.5 The [facility] Comment on above: Performed By: #### P HOS, MG #### [address] Serum globulin measurement b y calculation (mass/volume)Ordered By: Mike Verduzco on 08-15-2024 Globulin (S) [Mass/Vol] 2.8 g/dL Normal [facility] Comment on above: Performed By: #### P HOS, MG #### [address] Serum or plasma albumin/glob ulin mass ratioOrdered By: Mike Verduzco on 08-15-2024 Albumin/Globulin [Mass ratio] 1.0 {ratio} Normal [facility] Comment on above: Performed By: #### P HOS, MG #### [address] Triglycerideson 08-15-2024 Triglyceride [Mass/Vol] 113 mg/dL Normal 35-149 The [facility] Comment on above: Result Comment: TRIG ATP III CLASSIFICATION TRIG less than 150 mg/dL Normal TRIG 150-199 mg/dL Borderline high TRIG 200-500 mg/dL High TRIG greater than 500 mg/dL Very high Standard traceable to the Center for Disease Conrtrol and Prevention (CDC) test method. PERFORMED BY: [place] [address] PATHOLOGIST RESEARCH SPECIALIST SHERLY TATUM M.D. Performed By: #### A BG #### Point of Care testing , XR chest 1V portableon 08-15 XR chest 1V portable [facility] Main [place] [address] [place] [address] XRay Report Signed Patient: German Jacob MR#: [id number] : 1990 Acct:[id number] Age/Sex: 33 / F ADM Date: 08/12/24 Loc: Room: 8Q5765-6 Type: ADM IN Attending Dr: Mike Verduzco MD Copies to: MD Mike Solano MD Ordering Provider: Renny Multani MD Date of Service: 08/15/24 XR/XR chest 1V portable: pneumonia; respiratory failure PORTABLE AP SEMIERECT CHEST 0333 hours CLINICAL HISTORY: Respiratory distress on ventilator. COMPARISON: 08/14/2024 Tubes and lines are unchanged from the comparison. There is elevation of the right hemidiaphragm. There is slight increase in groundglass density at the right lower lung. There is continued groundglass opacity on the left and poor visualization of the hemidiaphragm. This could be minimally improved. Pleural effusion is not excluded without a lateral view. There is no developing pneumothorax. Cardiac and mediastinal contours are similar. XR/XR chest 1V portable IMPRESSION: CONTINUED PARENCHYMAL CHANGES, POTENTIALLY MINIMALLY IMPROVED ON THE LEFT AND WORSE ON THE RIGHT Impression dictated by: Shavon Astorga M.D.08/15/2024 7:09 AM Dictation Location: [place] [address] Transcribed By: [facility] 08/15/24 0709 Dictated By: Shavon Astorga MD 08/15/24 07 Signed By: 08/15/24 0709 Normal [facility] Arterial Blood Gason 024 ABG Base Excess -3.2 mmol/L Low -3.0-3.0 The [facility] Comment on above: Performed By: #### I SGLU #### Point of Care testing , ABG Frac Inspired O2 35 % Normal [facility] Comment on above: Performed By: #### I SGLU #### Point of Care testing , ABG Oxygen Content 6.1 mmol/L Low 6.6-9.7 The [facility] Comment on above: Performed By: #### I SGLU #### Point of Care testing , ABG Oxygen Saturation 94.2 % Low 95.0-100.0 [facility] Comment on above: Performed By: #### I SGLU #### Point of Care testing , ABG PCO2 47.3 mm[Hg] High 35.0-45.0 [facility] Comment on above: Performed By: #### I SGLU #### Point of Care testing , ABG PH 7.31 Low 7.35-7.45 [facility] Comment on above: Performed By: #### I SGLU #### Point of Care testing , ABG PO2 79.5 mm[Hg] Low 80.0-100.0 [facility] Comment on above: Performed By: #### I SGLU #### Point of Care testing , ABG TV 450 mL Normal [facility] Comment on above: Performed By: #### I SGLU #### Point of Care testing , CO2 [Moles/Vol] 24.6 mmol/L Normal 23.0-27.0 The [facility] Comment on above: Performed By: #### I SGLU #### Point of Care testing , HCO3 (Bld) [Moles/Vol] 23.1 mmol/L Normal 23.0-29.0 T he [facility] Comment on above: Performed By: #### I SGLU #### Point of Care testing , Respiratory Critical Normal [facility] Comment on above: Result Comment: Crit ical Value called on: 08/14/2024 at 05:31 PERFORMED BY: [place] [address] [place] [address] PATHOLOGIST RESEARCH SPECIALIST SHERLY TATUM M.D. Performed By: #### I SGLU #### Point of Care testing , Set Respiratory Rate 12 Normal [facility] Comment on above: Performed By: #### I SGLU #### Point of Care testing , VBG Draw Site Left Radial Normal [facility] Comment on above: Performed By: #### I SGLU #### Point of Care testing , Complete Blood Count Auto Di ffon 08-14-2024 Basophils (Bld) [#/Vol] 0.0 10*3/uL Normal 0.0-0.2 [facility] Comment on above: Order Comment: FIRST SPECIMEN POSSIBLY DILUTED Result Comment: PERF ORMED BY: [place] [address] PATHOLOGIST RESEARCH SPECIALIST SHERLY TATUM M.D. Performed By: #### P T, FIB-C #### [address] Basophils/100 WBC (Bld) 0.4 % Normal . [facility] Comment on above: Order Comment: FIRST SPECIMEN POSSIBLY DILUTED Performed By: #### P T, FIB-C #### [address] Eosinophils (Bld) [#/Vol] 0.0 10*3/uL Normal 0.0-0.45 [facility] Comment on above: Order Comment: FIRST SPECIMEN POSSIBLY DILUTED Performed By: #### P T, FIB-C #### [address] Eosinophils/100 WBC (Bld) 0.5 % Normal . [facility] Comment on above: Order Comment: FIRST SPECIMEN POSSIBLY DILUTED Performed By: #### P T, FIB-C #### [address] Erythrocyte distribution width (RBC) [Ratio] 16.7 % High 11.9-15.3 [facility] Comment on above: Order Comment: FIRST SPECIMEN POSSIBLY DILUTED Performed By: #### P T, FIB-C #### [address] Hematocrit (Bld) [Volume fraction] 24.8 % Low 34.0-46.4 [facility] Comment on above: Order Comment: FIRST SPECIMEN POSSIBLY DILUTED Performed By: #### P T, FIB-C #### [address] Hemoglobin (Bld) [Mass/Vol] 8.2 g/dL Low 11.8-15.4 [facility] Comment on above: Order Comment: FIRST SPECIMEN POSSIBLY DILUTED Performed By: #### P T, FIB-C #### [address] Lymphocytes (Bld) [#/Vol] 0.9 10*3/uL Low 1.00-4.8 [facility] Comment on above: Order Comment: FIRST SPECIMEN POSSIBLY DILUTED Performed By: #### P T, FIB-C #### [address] Lymphocytes/100 WBC (Bld) 13.2 % Normal . [facility] Comment on above: Order Comment: FIRST SPECIMEN POSSIBLY DILUTED Performed By: #### P T, FIB-C #### [address] MCH (RBC) [Entitic mass] 32.8 pg Normal 24.7-34.3 [facility] Comment on above: Order Comment: FIRST SPECIMEN POSSIBLY DILUTED Performed By: #### P T, FIB-C #### [address] MCV (RBC) [Entitic vol] 98.4 fL Normal 80-100 [facility] Comment on above: Order Comment: FIRST SPECIMEN POSSIBLY DILUTED Performed By: #### P T, FIB-C #### [address] Mean Corpuscular HGB Conc 33.3 g/dL Normal 32.0-35.0 [facility] Comment on above: Order Comment: FIRST SPECIMEN POSSIBLY DILUTED Performed By: #### P T, FIB-C #### [address] Monocytes (Bld) [#/Vol] 0.8 10*3/uL Normal 0.0-0.8 [facility] Comment on above: Order Comment: FIRST SPECIMEN POSSIBLY DILUTED Performed By: #### P T, FIB-C #### [address] Monocytes/100 WBC (Bld) 12.2 % Normal . [facility] Comment on above: Order Comment: FIRST SPECIMEN POSSIBLY DILUTED Performed By: #### P T, FIB-C #### [address] Neutrophils (Bld) [#/Vol] 4.9 10*3/uL Normal 1.8-7.7 [facility] Comment on above: Order Comment: FIRST SPECIMEN POSSIBLY DILUTED Performed By: #### P T, FIB-C #### [address] Neutrophils/100 WBC (Bld) 73.7 % Normal . [facility] Comment on above: Order Comment: FIRST SPECIMEN POSSIBLY DILUTED Performed By: #### P T, FIB-C #### [address] NRBC% 0.1 /100{WBC} Normal 0-0.5 The [facility] Comment on above: Order Comment: FIRST SPECIMEN POSSIBLY DILUTED Performed By: #### P T, FIB-C #### [address] Platelet mean volume (Bld) [Entitic vol] 9.1 fL Normal 6.3-10.[address] [facility] Comment on above: Order Comment: FIRST SPECIMEN POSSIBLY DILUTED Performed By: #### P T, FIB-C #### [place] [address] [place] Platelets (Bld) [#/Vol] 84 10*3/uL Significant change down 150-450 [facility] Comment on above: Order Comment: FIRST SPECIMEN POSSIBLY DILUTED Performed By: #### P T, FIB-C #### [place] [address] [place] RBC (Bld) [#/Vol] 2.52 10*6/uL Low 3.60-5.00 The [facility] Comment on above: Order Comment: FIRST SPECIMEN POSSIBLY DILUTED Performed By: #### P T, FIB-C #### [address] WBC (Bld) [#/Vol] 6.6 10*3/uL Normal 3.8-11.6 The [facility] Comment on above: Order Comment: FIRST SPECIMEN POSSIBLY DILUTED Performed By: #### P T, FIB-C #### [facility] [address] [place] [id number] [facility] Comprehensive Metabolic Pane richie 08-14-2024 Albumin [Mass/Vol] 2.5 g/dL Low 3.5-5.7 The [facility] Comment on above: Performed By: #### I SGLU #### Point of Care testing , Albumin/Globulin [Mass ratio] 1.0 {ratio} Normal [facility] Comment on above: Performed By: #### I SGLU #### Point of Care testing , ALP [Catalytic activity/Vol] 58 U/L Normal 34-104 [facility] Comment on above: Performed By: #### I SGLU #### Point of Care testing , ALT [Catalytic activity/Vol] 170 U/L High 7-52 [facility] Comment on above: Performed By: #### I SGLU #### Point of Care testing , Anion gap [Moles/Vol] 9.2 mmol/L Normal 6.0-15.0 [facility] Comment on above: Performed By: #### I SGLU #### Point of Care testing , AST [Catalytic activity/Vol] 221 U/L High 13-39 [facility] Comment on above: Performed By: #### I SGLU #### Point of Care testing , Bilirubin [Mass/Vol] 0.5 mg/dL Normal 0.3-1.0 [facility] Comment on above: Performed By: #### I SGLU #### Point of Care testing , Calcium [Mass/Vol] 5.8 mg/dL Off scale low 8.6-10.3 [facility] Comment on above: Result Comment: Crit ical Result Called to and read back by: SINDY ROBERTSON at: 08/14/2024 05:58:10 by:[id number] Performed By: #### I SGLU #### Point of Care testing , Chloride [Moles/Vol] 112 mmol/L High 98-107 [facility] Comment on above: Performed By: #### I SGLU #### Point of Care testing , CO2 [Moles/Vol] 22.1 mmol/L Normal 21.0-31.0 The [facility] Comment on above: Performed By: #### I SGLU #### Point of Care testing , Creatinine [Mass/Vol] 2.96 mg/dL High 0.60-1.20 [facility] Comment on above: Performed By: #### I SGLU #### Point of Care testing , Creatinine Clr Calc Pharmacy 33.64 Normal [facility] Comment on above: Result Comment: PERF ORMED BY: [facility] [address] [place] [address] PATHOLOGIST RESEARCH SPECIALIST SHERLY TATUM M.D. Performed By: #### I SGLU #### Point of Care testing , GFR/1.73 sq M.predicted MDRD (S/P/Bld) [Vol rate/Area] 20.874 mL/min/{1.73_m2} Normal The [facility] Comment on above: Performed By: #### I SGLU #### Point of Care testing , Globulin (S) [Mass/Vol] 2.6 g/dL Normal [facility] Comment on above: Performed By: #### I SGLU #### Point of Care testing , Glucose [Mass/Vol] 89 mg/dL Normal 70-100 The [facility] Comment on above: Result Comment: [facility] Glucose Reference Range is dependent on time and content of last meal. Glucose of more than 200 mg/dL in a nonstressed, ambulatory subject supports the diagnosis of Diabetes Mellitus. ADA recommended reference range Performed By: #### I SGLU #### Point of Care testing , Potassium [Moles/Vol] 3.3 mmol/L Low 3.5-5.1 [facility] Comment on above: Performed By: #### I SGLU #### Point of Care testing , Protein [Mass/Vol] 5.1 g/dL Low 6.4-8.9 [facility] Comment on above: Performed By: #### I SGLU #### Point of Care testing , Sodium [Moles/Vol] 140 mmol/L Normal 136-145 [facility] Comment on above: Performed By: #### I SGLU #### Point of Care testing , Urea nitrogen [Mass/Vol] 32 mg/dL High 7- [facility] Comment on above: Performed By: #### I SGLU #### Point of Care testing , Fibrinogenon 08-14-2024 Fibrinogen 305 mg/dL Normal 200-393 [facility] Comment on above: Result Comment: A he matocrit value greater than 55% may lead to inaccurate results in coagulation testing. Patients having hematocrit values >55% require a special collection tube for coagulation studies. Please contact the laboratory at [phone] for redraw instructions. PERFORMED BY: [place] [address] PATHOLOGIST RESEARCH SPECIALIST SHERLY TATUM M.D. Performed By: #### P T, FIB-C #### [address] Fibrinogen [Mass/volume] in Platelet poor plasma by Coagulation assayOrdered By: Renny Multani on 08-14-2024 Fibrinogen Coag (PPP) [Mass/Vol] 305 mg/dL 200-393 [facility] Comment on above: A hematocrit value g reater than 55% may lead to inaccurate results in coagulation testing. Patients having hematocrit values >55% require a special collection tube for coagulation studies. Please contact the laboratory at [phone] for redraw instructions. Glucose Poct Glucometerson 0 08-14-2024 Glucose [Mass/Vol] 212 mg/dL Normal [facility] Comment on above: Result Comment: [facility] Glucose Reference Range is dependent on time and content of last meal. Glucose of more than 200 mg/dL in a nonstressed, ambulatory subject supports the diagnosis of Diabetes Mellitus. PERFORMED BY: [place] [address] PATHOLOGIST RESEARCH SPECIALIST SHERLY TATUM M.D. Performed By: #### I SGLU #### Point of Care testing , Glucose [Mass/Vol] 102 mg/dL Normal [facility] Comment on above: Result Comment: [facility] Glucose Reference Range is dependent on time and content of last meal. Glucose of more than 200 mg/dL in a nonstressed, ambulatory subject supports the diagnosis of Diabetes Mellitus. PERFORMED BY: [place] [id number] PATHOLOGIST RESEARCH SPECIALIST SHERLY TATUM M.D. Performed By: #### I SGLU #### Point of Care testing , Glucose [Mass/Vol] 102 mg/dL Normal [facility] Comment on above: Result Comment: [employer] Glucose Reference Range is dependent on time and content of last meal. Glucose of more than 200 mg/dL in a nonstressed, ambulatory subject supports the diagnosis of Diabetes Mellitus. PERFORMED BY: [place] [id number] PATHOLOGIST RESEARCH SPECIALIST SHERLY TATUM M.D. Performed By: #### I SGLU #### Point of Care testing , Glucose [Mass/Vol] 116 mg/dL Normal [facility] Comment on above: Result Comment: [facility] Glucose Reference Range is dependent on time and content of last meal. Glucose of more than 200 mg/dL in a nonstressed, ambulatory subject supports the diagnosis of Diabetes Mellitus. PERFORMED BY: [place] [address] PATHOLOGIST RESEARCH SPECIALIST SHERLY TATUM M.D. Performed By: #### P T, FIB-C #### [address] INR in Platelet poor plasma by Coagulation assayOrdered By: Renny Multani on 08-14-2024 INR Coag (PPP) [Relative time] 1.2 {INR} Normal [facility] Comment on above: INR Therapeutic Rang e A) Pre- and Peroperative OAT started two weeks before surgery. NOT HIP SURGERY: 1.5 - 2.5 HIP SURGERY: 2 - 3B) Primary and secondary prevention of venous THROMBOSIS: 2 - 3C) Active venous thrombosis, pulmonary embolismand prevention of recurrent venous thrombosis: 2 - 3D) Prevention of arterial thromboembolismincluding patients with mechanical heart valves: 3 - 4.5 Result Comment: INR Therapeutic Range A) Pre- and Peroperative OAT started two weeks before surgery. NOT HIP SURGERY: 1.5 - 2.5 HIP SURGERY: 2 - 3 B) Primary and secondary prevention of venous THROMBOSIS: 2 - 3 C) Active venous thrombosis, pulmonary embolism and prevention of recurrent venous thrombosis: 2 - 3 D) Prevention of arterial thromboembolism including patients with mechanical heart valves: 3 - 4.5 Performed By: #### P T, FIB-C #### [place] [id number] [facility] Magnesiumon 08-14-2024 Magnesium [Mass/Vol] 1.7 mg/dL Low 1.9-2.7 [facility] Comment on above: Order Comment: Comme nt may add on. Result Comment: PERF ORMED BY: [place] [address] PATHOLOGIST RESEARCH SPECIALIST SHERLY TATUM M.D. Performed By: #### P HOS, MG #### [address] Phosphoruson 08-14-2024 Phosphate [Mass/Vol] 3.0 mg/dL Normal 2.5-4.5 [facility] Comment on above: Order Comment: Comme nt may add on. Performed By: #### P HOS, MG #### [address] Prothrombin time (PT)Ordered By: Renny Multani on 08-14-2024 PT Coag (PPP) [Time] 13.3 s High 9.0-12.9 [facility] Comment on above: A hematocrit value g reater than 55% may lead to inaccurate results in coagulation testing. Patients having hematocrit values >55% require a special collection tube for coagulation studies. Please contact the laboratory at [phone] for redraw instructions. Result Comment: A he matocrit value greater than 55% may lead to inaccurate results in coagulation testing. Patients having hematocrit values >55% require a special collection tube for coagulation studies. Please contact the laboratory at [phone] for redraw instructions. Performed By: #### P T, FIB-C #### [place] [id number] [facility] Triglycerideson 08-14-2024 Triglyceride [Mass/Vol] 169 mg/dL High 35-149 [facility] Comment on above: Result Comment: TRIG ATP III CLASSIFICATION TRIG less than 150 mg/dL Normal TRIG 150-199 mg/dL Borderline high TRIG 200-500 mg/dL High TRIG greater than 500 mg/dL Very high Standard traceable to the Center for Disease Conrtrol and Prevention (CDC) test method. PERFORMED BY: [place] [address] PATHOLOGIST RESEARCH SPECIALIST SHERLY TATUM M.D. Performed By: #### I SGLU #### Point of Care testing , XR chest 1V portableon 08-14 XR chest 1V portable [facility] Main [place] [address] [place] [address] XRay Report Signed Patient: German Jacob MR#: [id number] : 1990 Acct:[id number] Age/Sex: 33 / F ADM Date: 08/12/24 Loc: Room: [address] [place] [address] Type: ADM IN Attending Dr: Mike Verduzco MD Copies to: MD Mike Solano MD Ordering Provider: Renny Multani MD Date of Service: 08/14/24 XR/XR chest 1V portable: pneumonia; respiratory failure PORTABLE AP ERECT CHEST 0517 hours CLINICAL HISTORY: Respiratory distress on ventilator COMPARISON: 08/13/2024 Tubes and lines are similar to the comparison. There is shallow inspiration. Possible minimal basilar atelectasis is present on the right. There is continued groundglass opacity on the left. The hemidiaphragm on that side is not as well seen and interval worsening or pleural effusion is not excluded. No pneumothorax is identified. The cardiac and mediastinal contours are similar. XR/XR chest 1V portable IMPRESSION: CONTINUED LEFT-SIDED OPACITY, POSSIBLY SLIGHTLY WORSE AT THE BASE WHERE THE HEMIDIAPHRAGM IS OBSCURED AND PLEURAL EFFUSION IS NOT EXCLUDED. Impression dictated by: Shavon Astorga M.D.08/14/2024 7:08 AM Dictation Location: [place] [address] Transcribed By: [facility] 08/14/24 0708 Dictated By: Shavon Astorga MD 08/14/24 0705 Signed By: 08/14/24 0708 Normal [facility] A1C with Estimated Average Nael aguilera 08-13-2024 Glucose [Mass/Vol] 105 mg/dL Normal [facility] Comment on above: Result Comment: PERF ORMED BY: [address] [address] PATHOLOGIST RESEARCH SPECIALIST SHERLY TATUM M.D. Performed By: #### P HOS, MG #### [address] [address] [place] Activated partial thrombopla stin time (aPTT) in platelet poor plasma by coagulation aOrdered By: Mike Verduzco on 08-13-2024 aPTT Coag (PPP) [Time] 29.2 s 25.1-36.5 [facility] Comment on above: A hematocrit value g reater than 55% may lead to inaccurate results in coagulation testing. Patients having hematocrit values >55% require a special collection tube for coagulation studies. Please contact the laboratory at [phone] for redraw instructions. Aerobic Cultureon 08-13-2024 Aerobic Culture Light Normal Respiratory Rodolfo 1 Day Gram Stain Result 3+ White Blood Cells 1+ Gram Positive Bacilli 3+ Gram Positive Cocci in Pairs 1+ Gram Positive Cocci in Clusters PERFORMED BY: [address] [address] PATHOLOGIST RESEARCH SPECIALIST SHERLY TATMU M.D. Normal [facility] Comment on above: Performed By: #### B TONGUE AND QUARTER STITCHER #### [place] [id number] [facility] Anisocytosis [Presence] in B lood by Light microscopyOrdered By: Mike Verduzco on 08-13-2024 Anisocytosis Ql (Bld) Slight Normal [facility] Comment on above: Performed By: #### P HOS, MG #### [address] [address] [place] Arterial Blood [place] 024 ABG Base Excess -1.6 mmol/L Normal -3.0-3.0 [facility] Comment on above: Performed By: #### P HOS, MG #### [facility] [address] [place] [address] ABG Frac Inspired O2 70 % Normal [facility] Comment on above: Performed By: #### P HOS, MG #### [facility] [address] [place] [address] ABG Oxygen Content 7.1 mmol/L Normal 6.6-9.7 [facility] Comment on above: Performed By: #### P HOS, MG #### [facility] [address] [place] [address] ABG Oxygen Saturation 99.4 % Normal 95.0-100.0 [facility] Comment on above: Performed By: #### P HOS, MG #### [address] ABG PCO2 26.0 mm[Hg] Off scale low 35.0-45.0 [facility] Comment on above: Performed By: #### P HOS, MG #### [address] ABG PEEP 5 Normal [facility] Comment on above: Performed By: #### P HOS, MG #### [facility] [address] [place] [address] ABG PH 7.51 High 7.35-7.45 [facility] Comment on above: Performed By: #### P HOS, MG #### [facility] [address] [place] [address] ABG PO2 164.3 mm[Hg] Off scale high 80.0-100.0 [facility] Comment on above: Performed By: #### P HOS, MG #### [facility] [address] [place] [address] ABG TV 500 mL Normal [facility] Comment on above: Performed By: #### P HOS, MG #### [address] CO2 [Moles/Vol] 21.1 mmol/L Low 23.0-27.0 [facility] Comment on above: Performed By: #### P HOS, MG #### [address] HCO3 (Bld) [Moles/Vol] 20.3 mmol/L Low 23.0-29.0 [facility] Comment on above: Performed By: #### P HOS, MG #### [address] Respiratory Critical Normal [facility] Comment on above: Result Comment: Crit ical Value called on: 08/13/2024 at 05:08 PERFORMED BY: [place] [address] PATHOLOGIST RESEARCH SPECIALIST SHERLY TATUM M.D. Performed By: #### P HOS, MG #### [address] Set Respiratory Rate 22 Normal [facility] Comment on above: Performed By: #### P HOS, MG #### [address] VBG Draw Site Right Radial Normal [facility] Comment on above: Performed By: #### P HOS, MG #### [address] Ventilator Mode AC Normal [facility] Comment on above: Performed By: #### P HOS, MG #### [address] Capillary blood glucose feliciano urement by glucometer (mass/volume)Ordered By: Mike Verduzco on 08-13-2024 Glucose [Mass/Vol] 117 mg/dL High 70-105 [facility] Comment on above: Result Comment: PERF ORMED BY: [place] [address] PATHOLOGIST RESEARCH SPECIALIST SHERLY TATUM M.D. Performed By: #### I SGLU #### Point of Care testing , Cholesterol [Mass/volume] in Serum or PlasmaOrdered By: Mike Verduzco on 09-24-2024 Cholesterol [Mass/Vol] 85 mg/dL Low 140-200 [facility] Comment on above: Chol less than 200 m g/dl low riskChol 201-239 mg/dl borderline riskChol 240 mg/dl and greater high risk Order Comment: Comme nt may add on. Result Comment: Chol less than 200 mg/dl low risk Chol 201-239 mg/dl borderline risk Chol 240 mg/dl and greater high risk Performed By: #### P HOS, MG #### [facility] [address] [place] [id number] [place] Cholesterol in LDL Calc [Mas s/Vol]Ordered By: Mike Verduzco on 08-13-2024 Cholesterol in LDL [Mass/Vol] 30 mg/dL 0-100 [facility] Comment on above: LDL ATP III CLASSIFI CATIONLDL less than 100 mg/dL OptimalLDL 100-129 mg/dL Near or above optimalLDL 130-159 mg/dL Borderline highLDL 160-189 mg/dL HighLDL greater than 189 mg/dL Very high Cholesterol in VLDL Calc [Ma ss/Vol]Ordered By: Mike Verduzco on 08-13-2024 Cholesterol in VLDL [Mass/Vol] 36 mg/dL [facility] Comprehensive Metabolic Pane richie 08-13-2024 Albumin [Mass/Vol] 2.9 g/dL Significant change down 3.5-5.7 [facility] Comment on above: Order Comment: FASTI NG Y Performed By: #### P T, FIB-C #### [facility] [address] [place] [id number] [place] Albumin/Globulin [Mass ratio] 1.0 {ratio} Normal [facility] Comment on above: Order Comment: FASTI NG Y Performed By: #### P T, FIB-C #### [facility] [address] [place] [id number] [place] ALP [Catalytic activity/Vol] 72 U/L Normal 34-104 [facility] Comment on above: Order Comment: FASTI NG Y Performed By: #### P T, FIB-C #### [facility] [address] [place] [id number] [place] ALT [Catalytic activity/Vol] 137 U/L High 7-52 [facility] Comment on above: Order Comment: FASTI NG Y Performed By: #### P T, FIB-C #### [facility] [address] [place] [address] Anion gap [Moles/Vol] 11.8 mmol/L Normal 6.0-15.0 [facility] Comment on above: Order Comment: FASTI NG Y Performed By: #### P T, FIB-C #### [address] AST [Catalytic activity/Vol] 214 U/L High 13-39 [facility] Comment on above: Order Comment: FASTI NG Y Performed By: #### P T, FIB-C #### [address] Bilirubin [Mass/Vol] 0.6 mg/dL Normal 0.3-1.0 [facility] Comment on above: Order Comment: FASTI NG Y Performed By: #### P T, FIB-C #### [address] Calcium [Mass/Vol] 6.6 mg/dL Significant change down 8.6-10.3 [facility] Comment on above: Order Comment: FASTI NG Y Performed By: #### P T, FIB-C #### [address] Chloride [Moles/Vol] 103 mmol/L Normal 98-107 [facility] Comment on above: Order Comment: FASTI NG Y Performed By: #### P T, FIB-C #### [address] CO2 [Moles/Vol] 24.5 mmol/L Normal 21.0-31.0 [facility] Comment on above: Order Comment: FASTI NG Y Performed By: #### P T, FIB-C #### [address] Creatinine [Mass/Vol] 2.89 mg/dL Significan t change up 0.60-1.20 [facility] Comment on above: Order Comment: FASTI NG Y Performed By: #### P T, FIB-C #### [facility] [address] Creatinine Clr Calc Pharmacy 33.08 Normal [facility] Comment on above: Order Comment: FASTI NG Y Performed By: #### P T, FIB-C #### [facility] [address] GFR/1.73 sq M.predicted MDRD (S/P/Bld) [Vol rate/Area] 21.483 mL/min/{1.73_m2} Normal [facility] Comment on above: Order Comment: FASTI NG Y Performed By: #### P T, FIB-C #### [facility] [address] Globulin (S) [Mass/Vol] 2.8 g/dL Normal [facility] Comment on above: Order Comment: FASTI NG Y Performed By: #### P T, FIB-C #### [address] Glucose [Mass/Vol] 117 mg/dL High 70-100 [facility] Comment on above: Order Comment: FASTI NG Y Result Comment: [employer] Glucose Reference Range is dependent on time and content of last meal. Glucose of more than 200 mg/dL in a nonstressed, ambulatory subject supports the diagnosis of Diabetes Mellitus. ADA recommended reference range Performed By: #### P T, FIB-C #### [address] Potassium [Moles/Vol] 4.3 mmol/L Normal 3.5-5.1 [facility] Comment on above: Order Comment: FASTI NG Y Performed By: #### P T, FIB-C #### [address] Protein [Mass/Vol] 5.7 g/dL Significant change down 6.4-8.9 [facility] Comment on above: Order Comment: FASTI NG Y Performed By: #### P T, FIB-C #### [address] Sodium [Moles/Vol] 135 mmol/L Low 136-145 [facility] Comment on above: Order Comment: FASTI NG Y Performed By: #### P T, FIB-C #### [facility] [address] Urea nitrogen [Mass/Vol] 32 mg/dL High 7-25 [facility] Comment on above: Order Comment: FASTI NG Y Performed By: #### P T, FIB-C #### [address] Cortisolon 08-13-2024 Cortisol 11.8 ug/dL Normal [facility] Comment on above: Order Comment: Comme nt may add on. Result Comment: Refe rence range: AM 6 - 24 ug/dl PM <10 ug/dl [facility] eap consultant and method: MURIEL UNICEL DXI, POLYCLONAL ANTIBODY CORTISOL ASSAY. PERFORMED BY: [place] [address] PATHOLOGIST RESEARCH SPECIALIST SHERLY TATUM M.D. Performed By: #### P HOS, MG #### [address] Folate [Mass/volume] in Seru m or PlasmaOrdered By: Mike Verduzco on 08-13-2024 Folate [Mass/Vol] 9.4 ng/mL >5.9 [facility] Comment on above: Folate reference ran ge: >5.9 ng/mlThe WHO technical consultation on folate and vitamin [id number] has determined that folate concentrations lessthan 4 ng/ml are considered deficient. Glucose mean value [Mass/vol ume] in Blood Estimated from glycated hemoglobinOrdered By: Mike Verduzco on 08-13-2024 Average glucose Estimated from glycated hemoglobin (Bld) [Mass/Vol] 105 mg/dL [facility] Gram Stainon 08-13-2024 Microscopic observation Gram stain Nom (Unsp spec) Gram Stain Result 3+ White Blood Cells 1+ Gram Positive Bacilli 3+ Gram Positive Cocci in Pairs 1+ Gram Positive Cocci in Clusters PERFORMED BY: [place] [id number] PATHOLOGIST RESEARCH SPECIALIST SHERLY TATUM M.D. Normal [facility] Comment on above: Performed By: #### B TONGUE AND QUARTER STITCHER #### [address] Gram stain for investigation of transfusion reactionOrdered By: Renny Multani on 08-13-2024 Microscopic observation Gram stain Nom (Unsp spec) 1 Day [facility] Hemoglobin A1c percentageOrd ered By: Mike Verduzco on 08-13-2024 HbA1c (Bld) [Mass fraction] 5.3 % Normal 4.3-5.6 [facility] Comment on above: Increased risk for d iabetes: 5.7 - 6.4diabetes: >6.4glycemic control for adults with diabetes: <7.0 Result Comment: Incr eased risk for diabetes: 5.7 - 6.4 diabetes: >6.4 glycemic control for adults with diabetes: <7.0 Performed By: #### P HOS, MG #### [address] ISTAT Glucose [place] 08-13-20 24 Glucose [Mass/Vol] 121 mg/dL High 70-105 [facility] Comment on above: Result Comment: PERF ORMED BY: [place] [address] PATHOLOGIST RESEARCH SPECIALIST SHERLY TATUM M.D. Performed By: #### I SGLU #### Point of Care testing , Lipid Panelon 08-13-2024 LDL Cholesterol,Calculated 30 mg/dL Normal 0-100 [facility] Comment on above: Order Comment: Comme nt may add on. Result Comment: LDL ATP III CLASSIFICATION LDL less than 100 mg/dL Optimal LDL 100-129 mg/dL Near or above optimal LDL 130-159 mg/dL Borderline high LDL 160-189 mg/dL High LDL greater than 189 mg/dL Very high Performed By: #### P HOS, MG #### [address] Triglyceride w/Reflex 180 mg/dL High 0-149 [facility] Comment on above: Order Comment: Comme nt may add on. Result Comment: TRIG ATP III CLASSIFICATION TRIG less than 150 mg/dL Normal TRIG 150-199 mg/dL Borderline high TRIG 200-500 mg/dL High TRIG greater than 500 mg/dL Very high Standard traceable to the Center for Disease Conrtrol and Prevention (CDC) test method. Performed By: #### P HOS, MG #### [address] VLDL CHOLESTEROL 36 mg/dL Normal [facility] Comment on above: Order Comment: Comme nt may add on. Performed By: #### P HOS, MG #### [address] Magnesiumon 08-13-2024 Magnesium [Mass/Vol] 1.6 mg/dL Low 1.9-2.7 [facility] Comment on above: Order Comment: Comme nt may add on. Performed By: #### P HOS, MG #### [address] Ovalocyte detectionOrdered B y: Mike Verduzco on 08-13-2024 Ovalocytes LM Ql (Bld) Slight Fi [facility] Partial Thromboplastin Timeo n 08-13-2024 aPTT Coag (Bld) [Time] 29.2 s Normal 25.1-36.5 [facility] Comment on above: Result Comment: A he matocrit value greater than 55% may lead to inaccurate results in coagulation testing. Patients having hematocrit values >55% require a special collection tube for coagulation studies. Please contact the laboratory at [phone] for redraw instructions. PERFORMED BY: [place] [address] PATHOLOGIST RESEARCH SPECIALIST SHERLY TATUM M.D. Performed By: #### P HOS, MG #### [address] Phosphoruson 08-13-2024 Phosphate [Mass/Vol] 1.5 mg/dL Low 2.5-4.5 [facility] Comment on above: Order Comment: Comme nt may add on. Performed By: #### P HOS, MG #### [facility] [address] Platelet adequacy [Presence] in Blood by Light microscopyOrdered By: Mike Verduzco on 08-13-2024 Platelets LM Ql (Bld) Normal Normal [facility] Platelet morphology finding [Identifier] in BloodOrdered By: Mike Verduzco on 08-13-2024 Platelet morphology finding Nom (Bld) Normal Normal [facility] Poikilocytosis [Presence] in Blood by Light microscopyOrdered By: Mike Verduzco on 08-13-2024 Poikilocytosis LM Ql (Bld) Slight [facility] Prothrombin Time INRon 08-13 INR Coag (PPP) [Relative time] 1.4 {INR} Normal [facility] Comment on above: Result Comment: INR Therapeutic Range A) Pre- and Peroperative OAT started two weeks before surgery. NOT HIP SURGERY: 1.5 - 2.5 HIP SURGERY: 2 - 3 B) Primary and secondary prevention of venous THROMBOSIS: 2 - 3 C) Active venous thrombosis, pulmonary embolism and prevention of recurrent venous thrombosis: 2 - 3 D) Prevention of arterial thromboembolism including patients with mechanical heart valves: 3 - 4.5 Performed By: #### P HOS, MG #### [facility] [address] PT Coag (PPP) [Time] 15.7 s High 9.0-12.9 [facility] Comment on above: Result Comment: A he matocrit value greater than 55% may lead to inaccurate results in coagulation testing. Patients having hematocrit values >55% require a special collection tube for coagulation studies. Please contact the laboratory at [phone] for redraw instructions. Performed By: #### P HOS, MG #### [facility] [address] [place] [id number] [facility] RBC morphologyOrdered By: Fr jaz Verduzco on 08-13-2024 RBC morphology finding Nom (Bld) N/A [facility] Random cortisol measurementO rdered By: Renny Multani on 08-13-2024 Cortisol [Mass/Vol] 11.8 ug/dL [facility] Comment on above: [facility] eap consultant and method:MURIEL UNICEL DXI, POLYCLONAL ANTIBODY CORTISOL ASSAY.Reference range: AM 6 - 24 ug/dl PM <10 ug/dl Red blood cell stomatocyte d etectionOrdered By: Mike Verduzco on 08-13-2024 Stomatocytes LM Ql (Bld) Slight [facility] Scan and CBCon 08-13-2024 Basophils (Bld) [#/Vol] 0.1 10*3/uL Normal 0.0-0.2 [facility] Comment on above: Performed By: #### P HOS, MG #### [address] Basophils/100 WBC (Bld) 0.7 % Normal . [facility] Comment on above: Performed By: #### P HOS, MG #### [address] Eosinophils (Bld) [#/Vol] 0.0 10*3/uL Normal 0.0-0.45 [facility] Comment on above: Performed By: #### P HOS, MG #### [facility] [address] Eosinophils/100 WBC (Bld) 0.1 % Normal . [facility] Comment on above: Performed By: #### P HOS, MG #### [address] Erythrocyte distribution width (RBC) [Ratio] 16.6 % High 11.9-15.3 [facility] Comment on above: Performed By: #### P HOS, MG #### [facility] [address] Hematocrit (Bld) [Volume fraction] 31.3 % Low 34.0-46.4 [facility] Comment on above: Performed By: #### P HOS, MG #### [address] Hemoglobin (Bld) [Mass/Vol] 10.3 g/dL Low 11.8-15.4 [facility] Comment on above: Performed By: #### P HOS, MG #### [place] [address] [place] Lymphocytes (Bld) [#/Vol] 6.1 10*3/uL High 1.00-4.8 [facility] Comment on above: Performed By: #### P HOS, MG #### [address] Lymphocytes/100 WBC (Bld) 30.3 % Normal . [facility] Comment on above: Performed By: #### P HOS, MG #### [address] MCH (RBC) [Entitic mass] 32.2 pg Normal 24.7-34.3 [facility] Comment on above: Performed By: #### P HOS, MG #### [address] MCV (RBC) [Entitic vol] 98.4 fL Normal 80-100 [facility] Comment on above: Performed By: #### P HOS, MG #### [address] Mean Corpuscular HGB Conc 32.7 g/dL Normal 32.0-35.0 [facility] Comment on above: Performed By: #### P HOS, MG #### [place] [address] [place] Monocytes (Bld) [#/Vol] 1.6 10*3/uL High 0.0-0.8 [facility] Comment on above: Performed By: #### P HOS, MG #### [place] [address] [place] Monocytes/100 WBC (Bld) 8.0 % Normal . [facility] Comment on above: Performed By: #### P HOS, MG #### [address] Neutrophils (Bld) [#/Vol] 12.2 10*3/uL High 1.8-7.7 [facility] Comment on above: Performed By: #### P HOS, MG #### [address] Neutrophils/100 WBC (Bld) 60.9 % Normal . [facility] Comment on above: Performed By: #### P HOS, MG #### [address] NRBC% 0.2 /100{WBC} Normal 0-0.5 [facility] Comment on above: Performed By: #### P HOS, MG #### [address] Ovalocytes Slight Normal [facility] Comment on above: Performed By: #### P HOS, MG #### [address] Platelet Estimate Normal Normal Normal [facility] Comment on above: Performed By: #### P HOS, MG #### [address] Platelet mean volume (Bld) [Entitic vol] 9.6 fL Normal 6.3-10.[address] [facility] Comment on above: Performed By: #### P HOS, MG #### [address] Platelet Morphology Normal Normal Normal The [facility] Comment on above: Result Comment: PERF ORMED BY: [place] [address] PATHOLOGIST RESEARCH SPECIALIST SHERLY TATUM M.D. Performed By: #### P HOS, MG #### [address] Platelets (Bld) [#/Vol] 238 10*3/uL Normal 150-450 [facility] Comment on above: Performed By: #### P HOS, MG #### [address] Poikilocytosis Slight Normal [facility] Comment on above: Performed By: #### P HOS, MG #### [place] [address] [place] RBC (Bld) [#/Vol] 3.18 10*6/uL Low 3.60-5.00 The [facility] Comment on above: Performed By: #### P HOS, MG #### [address] Stomatocytes Slight Normal [facility] Comment on above: Performed By: #### P HOS, MG #### [facility] [address] WBC (Bld) [#/Vol] 20.1 10*3/uL High 3.8-11.6 The [facility] Comment on above: Performed By: #### P HOS, MG #### [address] Serum or plasma high density lipoprotein (HDL) cholesterol measurementOrdered By: Mike Verduzco on 08-13-2024 Cholesterol in HDL [Mass/Vol] 19 mg/dL Low 23-92 [facility] Comment on above: HDL CHOL ATP-III CLA SSIFICATION Cardiovascular RiskHDL > or equal to 60 mg/dL LOWHDL < 40 mg/dL HIGH Order Comment: Comme nt may add on. Result Comment: HDL CHOL ATP-III CLASSIFICATION Cardiovascular Risk HDL > or equal to 60 mg/dL LOW HDL < 40 mg/dL HIGH Performed By: #### P HOS, MG #### [address] Serum or plasma total choles terol/high density lipoprotein (HDL) cholesterol mass ratOrdered By: Mike Verduzco on 08-13-2024 Cholesterol.total/Chol esterol in HDL [Mass ratio] 4.5 {ratio} Normal <5.0 [facility] Comment on above: Order Comment: Comme nt may add on. Performed By: #### P HOS, MG #### [address] Thyroid Stim Hormone w/Rflxo n 08-13-2024 Thyroid Stim Hormone w/Rflx 0.29 u[iU]/mL Low 0.45-5.33 [facility] Comment on above: Order Comment: Comme nt may add on. Performed By: #### P HOS, MG #### [facility] [address] [place] [address] Thyrotropin [Units/volume] i n Serum or PlasmaOrdered By: Mike Verduzco on 08-13-2024 TSH Qn 0.29 m[IU]/L Low 0.45-5.33 [facility] Thyroxine (T4) free [Mass/vo lume] in Serum or PlasmaOrdered By: Mike Verduzco on 08-13-2024 Free T4 [Mass/Vol] 0.88 ng/dL Normal 0.61-1.12 [facility] Comment on above: Order Comment: Comme nt may add on. Performed By: #### P HOS, MG #### [address] Vit. B12/Folate Profileon Folate 9.4 ng/mL Normal >5.9 [facility] Comment on above: Order Comment: Comme nt may add on. Result Comment: Ana te reference range: >5.9 ng/ml The WHO technical consultation on folate and vitamin b12 deficiencies has determined that folate concentrations less than 4 ng/ml are considered deficient. Performed By: #### P HOS, MG #### [facility] [address] [place] [address] Vitamin B12 ser/plasOrdered By: Mike Verduzco on 08-13-2024 Cobalamin (Vitamin B12) [Mass/Vol] 417 pg/mL Normal 180-914 [facility] Comment on above: Order Comment: Comme nt may add on. Performed By: #### P HOS, MG #### [facility] [address] [place] [address] [place] XR chest 1V portableon 08-13 XR chest 1V portable [facility] Main [place] [address] [place] [id number] XRay Report Signed Patient: German Jacob MR#: [id number] : 1990 Acct:[id number] Age/Sex: 33 / F ADM Date: 08/12/24 Loc: Room: 6K6499-2 Type: ADM IN Attending Dr: Mike Verduzco MD Copies to: MD Mike Solano MD Ordering Provider: Renny Multani MD Date of Service: 08/13/24 XR/XR chest 1V portable: pneumonia; respiratory failure PORTABLE AP RECUMBENT CHEST 0517 hours CLINICAL HISTORY: Respiratory distress on ventilator COMPARISON: 08/12/2024 Tubes and lines are unchanged position. The patchy airspace opacities on the right have improved. There are persistent diffuse groundglass opacities on the left. No obvious effusion or pneumothorax is seen on this recumbent view. The cardiac and mediastinal contours are stable. XR/XR chest 1V portable IMPRESSION: PERSISTENT LEFT AND IMPROVING RIGHT-SIDED PARENCHYMAL CHANGES. Impression dictated by: Shavon Astorga M.D.08/13/2024 7:48 AM Dictation Location: [place] [address] Transcribed By: [facility] 08/13/24747 Dictated By: Shavon Astorga MD 08/13/2447 Signed By: 08/13/24 07 Normal [facility] Activated partial thrombopla stin time (aPTT) in platelet poor plasma by coagulation aOrdered By: Chase Dunn on 08-12-2024 aPTT Coag (PPP) [Time] 25.7 s 25.1-36.5 [facility] Comment on above: A hematocrit value g reater than 55% may lead to inaccurate results in coagulation testing. Patients having hematocrit values >55% require a special collection tube for coagulation studies. Please contact the laboratory at [phone] for redraw instructions. Alanine aminotransferase [En zymatic activity/volume] in Serum or PlasmaOrdered By: Chase Dunn on 08-12-2024 ALT [Catalytic activity/Vol] 131 U/L [facility] 7-52 [facility] Comment on above: Performed By: #### P HOS, MG #### [address] Albumin [Mass/volume] in Ser um or Plasma by Bromocresol green (BCG) dye binding methoOrdered By: Chase Dunn on 08-12-2024 Albumin BCG dye [Mass/Vol] 4.3 g/dL 3.5-5.7 [facility] Alkaline phosphatase [Enzyma tic activity/volume] in Serum or PlasmaOrdered By: Chase Dunn on 08-12-2024 ALP [Catalytic activity/Vol] 117 U/L High 34-104 [facility] Comment on above: Performed By: #### P HOS, MG #### [address] Ammonia [Moles/volume] in Pl asmaOrdered By: Chase Dunn on 08-12-2024 Ammonia (P) [Moles/Vol] 35 umol/L Normal 11-35 [facility] Comment on above: Result Comment: PERF ORMED BY: [place] [address] PATHOLOGIST RESEARCH SPECIALIST SHERLY TATUM M.D. Performed By: #### P HOS, MG #### [address] Amphetamine Screen Ql (U)Ord ered By: Chase Dunn on 08-12-2024 Amphetamines Ql (U) Negative Negative [facility] Arterial Blood [place]ason 024 ABG Base Excess -4.4 mmol/L Low -3.0-3.0 [facility] Comment on above: Performed By: #### P T, FIB-C #### [address] ABG Frac Inspired O2 100 % Normal [facility] Comment on above: Performed By: #### P T, FIB-C #### [address] ABG Oxygen Content 7.1 mmol/L Normal 6.6-9.7 [facility] Comment on above: Performed By: #### P T, FIB-C #### [address] ABG Oxygen Saturation 99.3 % Normal 95.0-100.0 [facility] Comment on above: Performed By: #### P T, FIB-C #### [address] ABG PCO2 37.2 mm[Hg] Normal 35.0-45.0 [facility] Comment on above: Performed By: #### P T, FIB-C #### [address] ABG PEEP 5 Normal [facility] Comment on above: Performed By: #### P T, FIB-C #### [address] ABG PH 7.36 Normal 7.35-7.45 [facility] Comment on above: Performed By: #### P T, FIB-C #### [address] ABG PO2 157.2 mm[Hg] Off scale high 80.0-100.0 [facility] Comment on above: Performed By: #### P T, FIB-C #### [address] ABG TV 500 mL Normal [facility] Comment on above: Performed By: #### P T, FIB-C #### [address] Respiratory Critical Normal [facility] Comment on above: Result Comment: Crit ical Value called on: 08/12/2024 at 15:54 PERFORMED BY: [place] [address] PATHOLOGIST RESEARCH SPECIALIST SHERLY TATUM M.D. Performed By: #### P T, FIB-C #### [address] Set Respiratory Rate 22 Normal [facility] Comment on above: Performed By: #### P T, FIB-C #### [address] VBG Draw Site Left Brachial Normal [facility] Comment on above: Performed By: #### P T, FIB-C #### [facility] [address] Ventilator Mode AC Normal [facility] Comment on above: Performed By: #### P T, FIB-C #### [facility] [address] ABG Base Excess -1.6 mmol/L Normal -3.0-3.0 [facility] Comment on above: Performed By: #### A BG #### Point of Care testing , ABG Frac Inspired O2 100 % Normal [facility] Comment on above: Performed By: #### A BG #### Point of Care testing , ABG Oxygen Content 6.1 mmol/L Low 6.6-9.7 [facility] Comment on above: Performed By: #### A BG #### Point of Care testing , ABG Oxygen Saturation 92.3 % Low 95.0-100.0 [facility] Comment on above: Performed By: #### A BG #### Point of Care testing , ABG PCO2 43.2 mm[Hg] Normal 35.0-45.0 [facility] Comment on above: Performed By: #### A BG #### Point of Care testing , ABG PH 7.36 Normal 7.35-7.45 [facility] Comment on above: Performed By: #### A BG #### Point of Care testing , ABG PO2 63.2 mm[Hg] Low 80.0-100.0 [facility] Comment on above: Performed By: #### A BG #### Point of Care testing , CO2 [Moles/Vol] 25.2 mmol/L Normal 23.0-27.0 [facility] Comment on above: Performed By: #### A BG #### Point of Care testing , HCO3 (Bld) [Moles/Vol] 23.9 mmol/L Normal 23.0-29.0 [facility] Comment on above: Performed By: #### A BG #### Point of Care testing , Oxygen Device Non Rebreather Mask Normal Th e [facility] Comment on above: Performed By: #### A BG #### Point of Care testing , Respiratory Critical Normal [facility] Comment on above: Result Comment: Crit ical Value called on: 08/12/2024 at 10:19 PERFORMED BY: [place] [address] PATHOLOGIST RESEARCH SPECIALIST SHERLY TATUM M.D. Performed By: #### A BG #### Point of Care testing , VBG Draw Site Left Brachial Normal [facility] Comment on above: Performed By: #### A BG #### Point of Care testing , Arterial Blood GasOrdered By : Chase Dunn on 08-12-2024 CO2 [Moles/Vol] 21.6 mmol/L Low 23.0-27.0 [facility] Comment on above: Performed By: #### P T, FIB-C #### [facility] [address] [place] [address] HCO3 (Bld) [Moles/Vol] 20.5 mmol/L Low 23.0-29.0 [facility] Comment on above: Performed By: #### P T, FIB-C #### [address] Aspartate aminotransferase [ Enzymatic activity/volume] in Serum or PlasmaOrdered By: Chase Dunn on 08-12-2024 AST [Catalytic activity/Vol] 194 U/L High 13-39 [facility] Comment on above: Performed By: #### P HOS, MG #### [facility] [address] [place] [address] Automated basophil %Ordered By: Chase Dunn on 08-12-2024 Basophils/100 WBC (Bld) 0.2 % Normal . [facility] Comment on above: Performed By: #### P HOS, MG #### [facility] [address] [place] [address] Automated basophil countOrde red By: Chase Dunn on 08-12-2024 Basophils (Bld) [#/Vol] 0.0 10*3/uL Normal 0.0-0.2 [facility] Comment on above: Result Comment: PERF ORMED BY: [place] [address] PATHOLOGIST RESEARCH SPECIALIST SHERLY TATUM M.D. Performed By: #### P HOS, MG #### [address] Automated blood monocyte cou ntOrdered By: Chase Dunn on 08-12-2024 Monocytes (Bld) [#/Vol] 0.8 10*3/uL Normal 0.0-0.8 [facility] Comment on above: Performed By: #### P HOS, MG #### [address] Automated eosinophil %Ordere d By: Chase Dunn on 08-12-2024 Eosinophils/100 WBC (Bld) 0.0 % Normal . [facility] Comment on above: Performed By: #### P HOS, MG #### [address] Automated eosinophil countOr dered By: Chase Dunn on 08-12-2024 Eosinophils (Bld) [#/Vol] 0.0 10*3/uL Normal 0.0-0.45 [facility] Comment on above: Performed By: #### P HOS, MG #### [address] Automated monocyte %Ordered By: Chase Dunn on 08-12-2024 Monocytes/100 WBC (Bld) 10.2 % Normal . [facility] Comment on above: Performed By: #### P HOS, MG #### [address] Automated neutrophil %Ordere d By: Chase Dunn on 08-12-2024 Neutrophils/100 WBC (Bld) 68.5 % Normal . [facility] Comment on above: Performed By: #### P HOS, MG #### [address] BNP ser/plasOrdered By: Efren Verduzco on 08-12-2024 Natriuretic peptide B (Bld) [Mass/Vol] 215.0 pg/mL High 5-100 [facility] Comment on above: Order Comment: Comme nt Add on to previous lab draw Result Comment: PERF ORMED BY: [place] [address] PATHOLOGIST RESEARCH SPECIALIST SHERLY TATUM M.D. Performed By: #### B TONGUE AND QUARTER STITCHER #### [facility] [address] [place] [address] [place] Bacteria [Presence] in Urine by AutomatedOrdered By: Chase Dunn on 08-12-2024 Bacteria Auto Ql (U) Rare [HPF] None Seen [facility] Bacterial blood cultureOrder ed By: Chase Dunn on 08-12-2024 Bacteria identified Cx Nom (Bld) NO GROWTH 5 DAYS [facility] Bacteria identified Cx Nom (Bld) NO GROWTH 5 DAYS [facility] Barbiturates [Presence] in U rine by Screen methodOrdered By: Chase Dunn on 08-12-2024 Barbiturates Screen Ql (U) Negative Negative [facility] Benzodiazepines Screen Ql (U )Ordered By: Chase Dunn on 08-12-2024 Benzodiazepines Ql (U) Positive High Negative [facility] Benzoylecgonine [Presence] i n Urine by Screen methodOrdered By: Chase Dunn on 08-12-2024 Benzoylecgonine Screen Ql (U) Negative Negative [facility] Bilirubin Test strip Ql (U)O rdered By: Chase Dunn on 08-12-2024 Bilirubin Ql (U) Negative Negative [facility] Bilirubin.total [Mass/volume ] in Serum or PlasmaOrdered By: Chase Dunn on 08-12-2024 Bilirubin [Mass/Vol] 0.7 mg/dL Normal 0.3-1.0 [facility] Comment on above: Performed By: #### P HOS, MG #### [facility] [address] [place] [address] [place] BioFire Not Detectedon 08-12 BioFire Not Detected Not detected Normal Not Detecte T he [facility] Comment on above: Result Comment: This is a duplicate RP2.1 COVID (PCR) result to be used for statistical tracking purpose only. PERFORMED BY: [place] [address] PATHOLOGIST RESEARCH SPECIALIST SHERLY TATUM M.D. Performed By: #### P HOS, MG #### [facility] [address] [place] [address] Blood Cultureon 08-12-2024 Bacteria identified Cx Nom (Bld) NO GROWTH 5 DAYS PERFORMED BY: [place] [address] PATHOLOGIST RESEARCH SPECIALIST SHERLY TATUM M.D. Normal [facility] Comment on above: Performed By: #### P T, FIB-C #### [facility] [address] [place] [address] Bacteria identified Cx Nom (Bld) NO GROWTH 5 DAYS PERFORMED BY: [place] [address] PATHOLOGIST RESEARCH SPECIALIST SHERLY TATUM M.D. Normal [facility] Comment on above: Performed By: #### P T, FIB-C #### [address] COVID-19 Detected/Not Detect edOrdered By: Mike Verduzco on 08-12-2024 SARS-CoV-2 (COVID-19) RNA VIVIANA+non-probe Ql (Nph) Not detected Not Detecte [facility] Comment on above: This is a duplicate RP2.1 COVID (PCR) result to be used for statistical tracking purpose only. CT abdomen pelvis w conon CT abdomen pelvis w [facility] [place] [address] CT Scan Report Signed Patient: German Jacob MR#: [id number] : 1990 Acct:[id number] Age/Sex: 33 / F ADM Date: 08/12/24 Loc: ER Room: Type: [facility] ER Attending Dr: Copies to: Chase Dunn DO Ordering Provider: Chase Dunn DO Date of Service: 08/12/24 CT/CT angio chest PE protocol: hypoxic, ams ([id number]) CT/CT abdomen pelvis w con: ams CLINICAL DATA: Overdose with decreased responsiveness and hypoxia. CT PULMONARY ANGIOGRAM WITH CONTRAST COMPARISON: None TECHNIQUE: Spiral images were obtained through the chest following intravenous administration of 90 mL of Isovue-370. Images were reviewed using both narrow and wide window settings. Sagittal, coronal and 3 D volume-rendered reconstructions were performed and reviewed. This CT exam was performed using one or more following dose reduction techniques: Automated exposure control, adjustment of the mA and/or kV according to patient size, or use of iterative reconstruction technique. FINDINGS: ET and OG tubes are present. The heart is not top normal in size. There is no pericardial effusion. No aortic aneurysm or dissection is seen. There is adequate opacification of the pulmonary arteries. No obvious emboli are identified however assessment of some of the peripheral branches is Limited by respiratory motion.. No pathologic lymphadenopathy is seen. Patchy airspace opacities are seen throughout both lungs. There is also more focal consolidation in the left perihilar region. No pleural effusion or pneumothorax is noted. CT/CT angio chest PE protocol IMPRESSION: NO OBVIOUS PULMONARY EMBOLISM WITHIN LIMITS OF RESPIRATORY MOTION. MULTIFOCAL BILATERAL INFILTRATES, LEFT SIDE WORSE THAN RIGHT. CT ABDOMEN AND PELVIS WITH CONTRAST COMPARISON: None Spiral images were obtained through the abdomen and pelvis following 90 mL Isovue-370. This CT exam was performed using one or more following dose reduction techniques: Automated exposure control, adjustment of the mA and/or kV according to patient size, or use of iterative reconstruction technique. The gallbladder is borderline hydropic. The wall is top normal in thickness. No calcified gallstones are identified. There is pericholecystic fluid though there is also a small amount of perihepatic ascites. There is periportal edema. No obvious intrahepatic lesions are identified however there is artifact from patient's arms . The spleen is within normal limits for size. The pancreas is normal in size and contour. There is no adrenal nodularity. The renal nephrograms are symmetric. No hydronephrosis is noted. The aorta is normal caliber. The IVC is dilated. No portal vein thrombosis is noted. There is hypodensity at the root of the mesentery which might be edema. No enlarged lymph nodes are visualized. The small bowel loops are within normal limits for caliber. Stool is seen along the colon. There is subtle levoscoliotic curvature. Images through the pelvis show nondistended small bowel. The appendix is not well demonstrated. There is stool at the distal colon. No diverticular disease is noted. Bilateral ovarian follicles are seen. The urinary bladder contains a Navarro catheter along with a small amount of air that was likely introduced iatrogenically. The urinary bladder is still moderately distended. No pelvic ascites is present. There is increased density within the mesentery centrally at the upper pelvis. IMPRESSION: HYDROPIC GALLBLADDER, WITHOUT STONES. PERIPORTAL, PERICHOLECYSTIC AND MESENTERIC EDEMA ALONG WITH A SMALL AMOUNT OF PERIHEPATIC ASCITES. NO BOWEL OR URINARY TRACT OBSTRUCTION. NO OTHER ACUTE FINDINGS. Impression dictated by: Shavon Astorga M.D.08/12/2024 2:12 PM Dictation Location: [place] [address] Transcribed By: [facility] 08/12/24 1412 Dictated By: Shavon Astorga MD 08/12/24 1357 Signed By: 08/12/24 1412 Normal [facility] CT head/brain wo conon 08-12 CT head/brain wo con [facility] Main [place] [address] [place] [address] CT Scan Report Signed Patient: German Jacob MR#: [id number] : 1990 Acct:[id number] Age/Sex: 33 / F ADM Date: 08/12/24 Loc: ER Room: Type: [facility] ER Attending Dr: Copies to: Chase Dunn DO Ordering Provider: Chase Dunn DO Date of Service: 08/12/24 CT/CT head/brain wo con: ams CT BRAIN WITHOUT CONTRAST: CLINICAL HISTORY: Overdose with unresponsiveness COMPARISON: None TECHNIQUE: Contiguous axial unenhanced images were obtained through the brain. This CT exam was performed using one or more following dose reduction techniques: Automated exposure control, ad justment of the mA and/or kV according to patient size, or use of iterative reconstruction technique. FINDINGS: Patient was scanned twice and there is motion on both series. The ventricles are normal in size and position. There are no obvious areas of abnormal attenuation. There is no hemorrhage, mass effect or extra-axial collections. The imaged paranasal sinuses and mastoid air cells are clear. CT/CT head/brain wo con IMPRESSION: NO ACUTE INTRACRANIAL ABNORMALITY. Impression dictated by: Shavon Astorga M.D.08/12/2024 1:57 PM Dictation Location: [place] [address] Transcribed By: [facility] 08/12/24 135 Dictated By: Shavon Astorga MD 08/12/24 1354 Signed By: 08/12/24 1357 Normal [facility] Calcium [Mass/volume] in Ser um or PlasmaOrdered By: Chase Dunn on 08-12-2024 Calcium [Mass/Vol] 8.4 mg/dL Low 8.6-10.3 [facility] Comment on above: Performed By: #### P HOS, MG #### [facility] [address] [place] [address] Cannabinoids [Presence] in U rine by Screen methodOrdered By: Chase Dunn on 08-12-2024 Cannabinoids Screen Ql (U) Positive High Negative [facility] Comment on above: These are unconfirme d results and should not be used for legal purposes. Drug Cut-Off Concentration: AMPH 1000 ng/mL LIAN 200 ng/mL BRIGHT 200 ng/mL COCM 300 ng/mL OP 300 ng/mL PCP 25 ng/mL THC 20 ng/mL Capillary blood glucose feliciano urement by glucometer (mass/volume)Ordered By: Chase Dunn on 08-12-2024 Glucose [Mass/Vol] 191 mg/dL Normal [facility] Comment on above: Random Glucose Refer ence Range is dependent on time and content of last meal. Glucose of more than 200 mg/dL in a nonstressed, ambulatory subject supports the diagnosis of Diabetes Mellitus. Result Comment: [facility] Glucose Reference Range is dependent on time and content of last meal. Glucose of more than 200 mg/dL in a nonstressed, ambulatory subject supports the diagnosis of Diabetes Mellitus. PERFORMED BY: [place] [address] PATHOLOGIST RESEARCH SPECIALIST SHERLY TATUM M.D. Performed By: #### P T, FIB-C #### [facility] [address] [place] [address] [facility] Carbon dioxide, total [Moles /volume] in Serum or PlasmaOrdered By: Chase Dunn on 08-12-2024 CO2 [Moles/Vol] 28.7 mmol/L Normal 21.0-31.0 [facility] Comment on above: Performed By: #### P HOS, MG #### [address] Casts [Presence] in Urine by AutomatedOrdered By: Chase Dunn on 08-12-2024 Casts Auto Ql (U) 5-9 [LPF] High None Seen [facility] Chloride [Moles/volume] in S dada or PlasmaOrdered By: Chase Dunn on 08-12-2024 Chloride [Moles/Vol] 97 mmol/L Low 98-107 [facility] Comment on above: Performed By: #### P HOS, MG #### [address] Color of Urine by AutoOrdere d By: Chase Dunn on 08-12-2024 Color (U) Yellow Normal Yellow [facility] Comment on above: Order Comment: Comme nt may add on. Performed By: #### P HOS, MG #### [address] Complete Blood Count Auto Di ffon 08-12-2024 Mean Corpuscular HGB Conc 32.7 g/dL Normal 32.0-35.0 [facility] Comment on above: Performed By: #### P HOS, MG #### [place] [address] [place] Monocytes/100 WBC (Bld) 18.25 % Normal 0.00-20.00 [facility] Comment on above: Performed By: #### P HOS, MG #### [address] NRBC% 0.1 /100{WBC} Normal 0-0.5 [facility] Comment on above: Performed By: #### P HOS, MG #### [address] Comprehensive Metabolic Pane richie 08-12-2024 Albumin [Mass/Vol] 4.3 g/dL Normal 3.5-5.7 The [facility] Comment on above: Performed By: #### P HOS, MG #### [facility] [address] [place] [address] [place] Creatinine Clr Calc Pharmacy 55.91 Normal [facility] Comment on above: Performed By: #### P HOS, MG #### [place] [address] [place] GFR/1.73 sq M.predicted MDRD (S/P/Bld) [Vol rate/Area] 40.324 mL/min/{1.73_m2} Normal The [facility] Comment on above: Performed By: #### P HOS, MG #### [place] [address] [place] Creatine kinase [Enzymatic a ctivity/volume] in Serum or PlasmaOrdered By: Chase Dunn on 08-12-2024 CK [Catalytic activity/Vol] 477 U/L High 30-223 [facility] Comment on above: Performed By: #### P HOS, MG #### [address] Creatinine [Mass/volume] in Serum or PlasmaOrdered By: Chase Dunn on 08-12-2024 Creatinine [Mass/Vol] 1.71 mg/dL High 0.60-1.20 [facility] Comment on above: Performed By: #### P HOS, MG #### [place] [address] [place] Dipstick and Microscopicon 0 08-12-2024 Bacteria,Urine Rare Normal None Seen The [facility] Comment on above: Order Comment: Comme nt may add on. Performed By: #### P HOS, MG #### [place] [address] [place] Bilirubin,Urine Negative Normal Negative The [facility] Comment on above: Order Comment: Comme nt may add on. Performed By: #### P HOS, MG #### [place] [address] [place] Glucose Ql (U) Normal Normal Normal The [facility] Comment on above: Order Comment: Comme nt may add on. Performed By: #### P HOS, MG #### [facility] [address] [place] [address] [place] Hyaline Casts,Urine 0-8 Normal 0-8 The [facility] Comment on above: Order Comment: Comme nt may add on. Performed By: #### P HOS, MG #### [facility] [address] [place] [address] [place] Mucus,Urine Rare Normal [facility] Comment on above: Order Comment: Comme nt may add on. Performed By: #### P HOS, MG #### [facility] [address] Nitrite,Urine Negative Normal Negative The [facility] Comment on above: Order Comment: Comme nt may add on. Performed By: #### P HOS, MG #### [facility] [address] Occult Blood,Urine Negative Normal Negative The [facility] Comment on above: Order Comment: Comme nt may add on. Performed By: #### P HOS, MG #### [facility] [address] Other Casts,Urine 5-9 High None Seen The [facility] Comment on above: Order Comment: Comme nt may add on. Performed By: #### P HOS, MG #### [facility] [address] RBC,Urine 1-2 Normal 0-4 [facility] Comment on above: Order Comment: Comme nt may add on. Performed By: #### P HOS, MG #### [facility] [address] Specificy Lacey,Urine 1.015 Normal 1.001-1.030 [facility] Comment on above: Order Comment: Comme nt may add on. Performed By: #### P HOS, MG #### [facility] [address] Squamous Epithelial Cell,Urine 1-2 Normal 0-2 [facility] Comment on above: Order Comment: Comme nt may add on. Performed By: #### P HOS, MG #### [address] Urobilinogen,Urine Normal Normal Normal [facility] Comment on above: Order Comment: Comme nt may add on. Performed By: #### P HOS, MG #### [address] WBC CLUMP, Urine Occasional High None Seen The [facility] Comment on above: Order Comment: Comme nt may add on. Performed By: #### P HOS, MG #### [address] WBC,Urine 5-9 High 0-4 [facility] Comment on above: Order Comment: Comme nt may add on. Performed By: #### P HOS, MG #### [place] [address] [place] Drug Screen,Urineon 08-12-20 24 Amphetamine Screen,Urine Negative Normal Negative [facility] Comment on above: Performed By: #### P HOS, MG #### [address] Barbiturate Screen,Urine Negative Normal Negative [facility] Comment on above: Performed By: #### P HOS, MG #### [place] [address] [place] Benzodiazepines Screen,Urine Positive High Negative [facility] Comment on above: Performed By: #### P HOS, MG #### [address] Cannabinoid Screen,Urine Positive High Negative [facility] Comment on above: Result Comment: Thes e are unconfirmed results and should not be used for legal purposes. Drug Cut-Off Concentration: AMPH 1000 ng/mL LIAN 200 ng/mL BRIGHT 200 ng/mL COCM 300 ng/mL OP 300 ng/mL PCP 25 ng/mL THC 20 ng/mL PERFORMED BY: [place] [address] PATHOLOGIST RESEARCH SPECIALIST SHERLY TATUM M.D. Performed By: #### P HOS, MG #### [facility] [address] Cocaine Screen,Urine Negative Normal Negative [facility] Comment on above: Performed By: #### P HOS, MG #### [facility] [address] Opiate Screen,Urine Negative Normal Negative The [facility] Comment on above: Performed By: #### P HOS, MG #### [facility] [address] Phencyclidine Screen,Urine Negative Normal Negative [facility] Comment on above: Performed By: #### P HOS, MG #### [facility] [address] ECG 12 lead ECGon 08-12-2024 ECG 12 lead ECG [facility] Main [place] [address] [place] [address] Electrocardiograph Report Signed Patient: German Jacob MR#: [id number] : 1990 Acct:[id number] Age/Sex: 33 / F ADM Date: 08/12/24 Loc: ER Room: Type: [facility] ER Attending Dr: Ordering Provider: Chase Dunn DO Date of Service: 08/12/24 ECG/ECG 12 lead ECG: Altered Mental Status Copies to: Test Reason : Blood Pressure : */* mmHG Vent. Rate : 116 BPM Atrial Rate : 116 BPM P-R Int : 140 ms QRS Dur : 86 ms QT Int : 336 ms P-R-T Axes : 82 88 72 degrees QTcB Int : 467 ms Sinus tachycardia Confirmed by Chase DUNN DO ([id number]) on 08/12/2024 4:22:52 PM Referred By: Electronically Signed By: Chase DUNN DO Transcribed By: MUS Signed By Chase Dunn DO 0 08/12/24 1622 Normal [facility] Epithelial cells.squamous [# /area] in Urine sediment by Automated countOrdered By: Chase Dunn on 08-12-2024 Epithelial cells.squamous Auto (Urine sed) [#/Area] 1-2 [HPF] 0-2 [facility] Erythrocyte distribution wid th [Ratio] by Automated countOrdered By: Chase Dunn on 08-12-2024 Erythrocyte distribution width (RBC) [Ratio] 16.6 % High 11.9-15.3 [facility] Comment on above: Performed By: #### P HOS, MG #### [facility] [address] [place] [address] Erythrocytes [#/area] in Uri ne sediment by Automated countOrdered By: Chase Dunn on 08-12-2024 RBC Auto (Urine sed) [#/Area] 1-2 [HPF] 0-4 [facility] Erythrocytes [#/volume] in B lood by Automated countOrdered By: Chase Dunn on 08-12-2024 RBC (Bld) [#/Vol] 3.16 10*6/uL Low 3.60-5.00 [facility] Comment on above: Performed By: #### P HOS, MG #### [facility] [address] [place] [address] [place] Ethanol [Mass/volume] in Ser um or PlasmaOrdered By: Chase Dunn on 08-12-2024 Ethanol [Mass/Vol] mg/dL Normal [facility] Comment on above: Performed By: #### P HOS, MG #### [facility] [address] [place] [address] [place] Ethanol [Mass/Vol] TNP [facility] Comment on above: Test not performed Ethyl Alcohol Profileon 07-22 Percent Ethanol Not performed Normal [facility] Comment on above: Result Comment: PERF ORMED BY: [place] [address] PATHOLOGIST RESEARCH SPECIALIST SHERLY TATUM M.D. Performed By: #### P HOS, MG #### [facility] [address] [place] [address] [place] Glucose [Mass/volume] in Ser um or PlasmaOrdered By: Chase Dunn on 08-12-2024 Glucose [Mass/Vol] 63 mg/dL Low 70-100 [facility] Comment on above: ADA recommended refe rence rangeRandom Glucose Reference Range is dependent on time and content of last meal. Glucose of more than 200 mg/dL in a nonstressed, ambulatory subject supports the diagnosis of Diabetes Mellitus. Result Comment: [facility] Glucose Reference Range is dependent on time and content of last meal. Glucose of more than 200 mg/dL in a nonstressed, ambulatory subject supports the diagnosis of Diabetes Mellitus. ADA recommended reference range Performed By: #### P HOS, MG #### [address] Glucose [Mass/volume] in Uri ne by Test stripOrdered By: Chase Dunn on 08-12-2024 Glucose Test strip (U) [Mass/Vol] Normal mg/dL Normal [facility] HCG ( test) IA.rapi d Ql (U)Ordered By: Chase Dunn on 08-12-2024 HCG ( test) Ql (U) Negative [facility] HCG,Urineon 08-12-2024 Beta HCG ( test) Ql (U) Negative Normal [facility] Comment on above: Order Comment: Comme nt may add on. Result Comment: PERF ORMED BY: [place] [address] PATHOLOGIST RESEARCH SPECIALIST SHERLY TATUM M.D. Performed By: #### P HOS, MG #### [address] Hematocrit [Volume Fraction] of Blood by Automated countOrdered By: Chase Dunn on 08-12-2024 Hematocrit (Bld) [Volume fraction] 31.9 % Low 34.0-46.4 [facility] Comment on above: Performed By: #### P HOS, MG #### [address] Hemoglobin Test strip Ql (U) Ordered By: Chase Dunn on 08-12-2024 Hemoglobin Ql (U) Negative Negative [facility] Hemoglobin [Mass/volume] in BloodOrdered By: Chase Dunn on 08-12-2024 Hemoglobin (Bld) [Mass/Vol] 10.4 g/dL Low 11.8-15.4 [facility] Comment on above: Performed By: #### P HOS, MG #### [address] [place] [address] [place] Hyaline casts [#/area] in Ur ine sediment by Automated countOrdered By: Chase Dunn on 08-12-2024 Hyaline casts Auto (Urine sed) [#/Area] 0-8 [LPF] 0-8 [facility] INR in Platelet poor plasma by Coagulation assayOrdered By: Chase Dunn on 08-12-2024 INR Coag (PPP) [Relative time] 1.2 {INR} Normal [facility] Comment on above: INR Therapeutic Rang e A) Pre- and Peroperative OAT started two weeks before surgery. NOT HIP SURGERY: 1.5 - 2.5 HIP SURGERY: 2 - 3B) Primary and secondary prevention of venous THROMBOSIS: 2 - 3C) Active venous thrombosis, pulmonary embolismand prevention of recurrent venous thrombosis: 2 - 3D) Prevention of arterial thromboembolismincluding patients with mechanical heart valves: 3 - 4.5 Result Comment: INR Therapeutic Range A) Pre- and Peroperative OAT started two weeks before surgery. NOT HIP SURGERY: 1.5 - 2.5 HIP SURGERY: 2 - 3 B) Primary and secondary prevention of venous THROMBOSIS: 2 - 3 C) Active venous thrombosis, pulmonary embolism and prevention of recurrent venous thrombosis: 2 - 3 D) Prevention of arterial thromboembolism including patients with mechanical heart valves: 3 - 4.5 Performed By: #### P HOS, MG #### [address] ISTAT Glucose Pocon 08-12-20 24 Glucose [Mass/Vol] 115 mg/dL High 70-105 [facility] Comment on above: Result Comment: PERF ORMED BY: [place] [address] PATHOLOGIST RESEARCH SPECIALIST SHERLY TATUM M.D. Performed By: #### P T, FIB-C #### [facility] [address] [place] [address] [place] Ketones [Presence] in Urine by Test stripOrdered By: Chase Dunn on 08-12-2024 Ketones Ql (U) Trace High Negative [facility] Comment on above: Order Comment: Comme nt may add on. Performed By: #### P HOS, MG #### [facility] [address] [place] [address] Laboratory - Microbiology an d Antimicrobial susceptibilityOrdered By: Chase Dunn on 08-12-2024 Bacteria identified Cx Nom (U) Escherichia coli Abnormal [facility] Lactate [Moles/volume] in Se rum or PlasmaOrdered By: Chase Dunn on 08-12-2024 Lactate [Moles/Vol] 4.1 mmol/L High 0.5-2.2 [facility] Comment on above: Critical Result : Ca lled to and read back by: ROB ESTRADA at: 08/12/2024 21:44:41 by:[id number] Lactic Acidon 08-12-2024 Lactate [Moles/Vol] 3.2 mmol/L Off scale high 0.5-2.2 T [facility] Comment on above: Result Comment: Crit ical Result : Called to and read back by: JUAN HERRON at: 08/12/2024 18:19:15 by:[email or web address] PERFORMED BY: [place] [address] PATHOLOGIST RESEARCH SPECIALIST SHERLY TATUM M.D. Performed By: #### B [employer]ONGUE [employer]ARTER STITCHER #### [address] Lactic Acid Reflexon 024 Lactic Acid Reflex 4.1 mmol/L Off scale high 0.5-2.2 Th e [facility] Comment on above: Result Comment: Crit ical Result : Called to and read back by: ROB ESTRADA at: 08/12/2024 21:44:41 by:[id number] PERFORMED BY: [place] [address] PATHOLOGIST RESEARCH SPECIALIST SHERLY TATUM M.D. Performed By: #### P T, FIB-C #### [address] Leukocyte clumps [Presence] in Urine by AutomatedOrdered By: Chase Dunn on 08-12-2024 Leukocyte clumps Auto Ql (U) Occasional [LPF] High None Seen [facility] Leukocyte esterase [Presence ] in Urine by Test stripOrdered By: Chase Dunn on 08-12-2024 Leukocyte esterase Test strip Ql (U) 1+ High Negative [facility] Comment on above: Order Comment: [place] nt may add on. Performed By: #### P HOS, MG #### [facility] [address] [place] [address] [place] Leukocytes [#/area] in Urine sediment by Automated countOrdered By: Chase Dunn on 08-12-2024 WBC Auto (Urine sed) [#/Area] 5-9 [HPF] High 0-4 [facility] Leukocytes [#/volume] correc minerva for nucleated erythrocytes in Blood by Automated counOrdered By: Chase Dunn on 08-12-2024 WBC corrected for nucl RBC Auto (Bld) [#/Vol] 7.5 10*3/uL 3.8-11.6 [facility] Leukocytes [#/volume] in Blo od by Automated countOrdered By: Chase Dunn on 08-12-2024 WBC (Bld) [#/Vol] 7.5 10*3/uL Normal 3.8-11.6 [facility] Comment on above: Performed By: #### P HOS, MG #### [facility] [address] [place] [address] [place] Lymphocytes [#/volume] in Bl ood by Automated countOrdered By: Chase Dunn on 08-12-2024 Lymphocytes (Bld) [#/Vol] 1.6 10*3/uL Normal 1.00-4.8 [facility] Comment on above: Performed By: #### P HOS, MG #### [facility] [address] [place] [address] [place] Lymphocytes/100 leukocytes i n Blood by Automated countOrdered By: Chase Dunn on 08-12-2024 Lymphocytes/100 WBC (Bld) 21.1 % Normal . [facility] Comment on above: Performed By: #### P HOS, MG #### [place] [address] [place] MCH [Entitic mass] by Automa minerva countOrdered By: Chase Dunn on 08-12-2024 MCH (RBC) [Entitic mass] 33.1 pg Normal 24.7-34.3 [facility] Comment on above: Performed By: #### P HOS, MG #### [facility] [address] [place] [address] MCHC Auto (RBC) [Mass/Vol]Or dered By: Chase Dunn on 08-12-2024 MCHC (RBC) [Mass/Vol] 32.7 g/dL 32.0-35.0 [facility] MCV [Entitic volume] by Auto mated countOrdered By: Chase Dunn on 08-12-2024 MCV (RBC) [Entitic vol] 101.1 fL High 80-100 [facility] Comment on above: Performed By: #### P HOS, MG #### [address] Monocyte distribution width [Entitic volume] in Blood by AutomatedOrdered By: Chase Dunn on 08-12-2024 Monocyte distribution width Auto (Bld) [Entitic vol] 18.25 % 0.00-20.00 [facility] Mucus [Presence] in Urine by AutomatedOrdered By: Chase Dunn on 08-12-2024 Mucus Auto Ql (U) Rare [LPF] [facility] Neutrophils [#/volume] in Bl ood by Automated countOrdered By: Chase Dunn on 08-12-2024 Neutrophils (Bld) [#/Vol] 5.2 10*3/uL Normal 1.8-7.7 [facility] Comment on above: Performed By: #### P HOS, MG #### [address] Nitrite Test strip Ql (U)Ord ered By: Chase Dunn on 08-12-2024 Nitrite Ql (U) Negative Negative [facility] No Panel InformationOrdered By: Chase Dunn on 08-12-2024 Arterial Blood Base Excess -4.4 mmol/L Low -3.0-3.0 [facility] Arterial Blood Oxygen Content 7.1 mmol/L 6.6-9.7 [facility] Arterial Blood Oxygen Saturation 99.3 % 95.0-100.0 [facility] Arterial Blood Partial Pressure CO2 37.2 mm[Hg] 35.0-45.0 [facility] Arterial Blood Partial Pressure O2 157.2 mm[Hg] High 80.0-100.0 [facility] Arterial Blood pH 7.36 7.35-7.45 [facility] Blood Gas Critical Value See comment [facility] Comment on above: Critical Value prajapati d on: 08/12/2024 at 15:54 Blood Gas PEEP 5 cmH2O [facility] Blood Gas Sample Site Left brachial [facility] Blood Gas Set Respiration Rate 22 [facility] Blood Gas Tidal Volume 500 [facility] Ventilator Mode Ac [facility] FiO2 100 % [facility] Estimated GFR (CKD-EPI) 40.324 mL/Min [facility] Creatinine Clearance (Chem 55.91 [facility] Oxygen Delivery Device Non rebreather mask [facility] Nucleated erythrocytes [Pres ence] in Blood by Automated countOrdered By: Chase Dunn on 08-12-2024 Nucleated RBC Auto Ql (Bld) 0.1 /100{WBC} 0-0.5 [facility] Opiates [Presence] in Urine by Screen methodOrdered By: Chase Dunn on 08-12-2024 Opiates Screen Ql (U) Negative Negative [facility] Partial Thromboplastin Timeo n 08-12-2024 aPTT Coag (Bld) [Time] 25.7 s Normal 25.1-36.5 [facility] Comment on above: Result Comment: A he matocrit value greater than 55% may lead to inaccurate results in coagulation testing. Patients having hematocrit values >55% require a special collection tube for coagulation studies. Please contact the laboratory at [phone] for redraw instructions. PERFORMED BY: [address] [place] [address] PATHOLOGIST RESEARCH SPECIALIST SHERLY TATUM M.D. Performed By: #### P HOS, MG #### [address] Phencyclidine Screen Ql (U)O rdered By: Chase Dunn on 08-12-2024 Phencyclidine Ql (U) Negative Negative [facility] Platelet mean volume [Entiti c volume] in Blood by Automated countOrdered By: Chase Dunn on 08-12-2024 Platelet mean volume (Bld) [Entitic vol] 9.8 fL Normal 6.3-10.7 [facility] Comment on above: Performed By: #### P HOS, MG #### [facility] [address] [place] [address] [place] Platelets [#/volume] in Bloo d by Automated countOrdered By: Chase Dunn on 08-12-2024 Platelets (Bld) [#/Vol] 165 10*3/uL Normal 150-450 [facility] Comment on above: Performed By: #### P HOS, MG #### [place] [address] [place] Potassium [Moles/volume] in Serum or PlasmaOrdered By: Chase Dunn on 08-12-2024 Potassium [Moles/Vol] 4.8 mmol/L Normal 3.5-5.1 [facility] Comment on above: Hemolysis is present at a level that could interfere with the result.Contact lab if redraw is required Result Comment: Hemo lysis is present at a level that could interfere with the result. Contact lab if redraw is required Performed By: #### P HOS, MG #### [place] [address] [place] Protein [Mass/volume] in Ser um or PlasmaOrdered By: Chase Dunn on 08-12-2024 Protein [Mass/Vol] 8.3 g/dL Normal 6.4-8.9 [facility] Comment on above: Performed By: #### P HOS, MG #### [place] [address] [place] Protein [Mass/volume] in Uri ne by Test stripOrdered By: Chase Dunn on 08-12-2024 Protein (U) [Mass/Vol] 50 mg/dL High Negative [facility] Comment on above: Order Comment: Comme nt may add on. Performed By: #### P HOS, MG #### [place] [address] [place] Prothrombin time (PT)Ordered By: Chase Dunn on 08-12-2024 PT Coag (PPP) [Time] 13.4 s High 9.0-12.9 [facility] Comment on above: A hematocrit value g reater than 55% may lead to inaccurate results in coagulation testing. Patients having hematocrit values >55% require a special collection tube for coagulation studies. Please contact the laboratory at [phone] for redraw instructions. Result Comment: A he matocrit value greater than 55% may lead to inaccurate results in coagulation testing. Patients having hematocrit values >55% require a special collection tube for coagulation studies. Please contact the laboratory at [phone] for redraw instructions. Performed By: #### P HOS, MG #### [facility] [address] Respiratory (Upper) Panel, P CRon 08-12-2024 Respiratory (Upper) Panel, PCR Adenovirus Not detected Bordetella parapertussis Not detected Chlamydia pneumoniae Not detected Coronavirus 229E Not detected Coronavirus HKU1 Not detected Coronavirus NL63 Not detected Coronavirus OC43 Not detected Influenza A Not detected Influenza B Not detected Human Metapneumovirus Not detected Mycoplasma pneumoniae Not detected Parainfluenza Virus 1 Not detected Parainfluenza Virus 2 Not detected Parainfluenza Virus 3 Not detected Parainfluenza Virus 4 Not detected Bordetella pertussis-ptxP Not detected Human Rhino/Enterovirus Not detected Resp. Syncytial Virus Not detected COVID-19 Detected/Not Detected Not detected Blank Space -------- FLUA TEST INCLUDES Influenza A tests for the following clinically FLUA TEST INCLUDES significant subtypes: FLUA TEST INCLUDES - Influenza A FLUA TEST INCLUDES - Influenza A H1 FLUA TEST INCLUDES - Influenza A H1 2009 FLUA TEST INCLUDES - Influenza A H3 Blank Space -------- PERFORMED BY: [place] [address] PATHOLOGIST RESEARCH SPECIALIST SHERLY TATUM M.D. Normal [facility] Comment on above: Performed By: #### P HOS, MG #### [address] Respiratory pathogens DNA an d RNA panel - Nasopharynx by VIVIANA with non-probe detectionOrdered By: Mike Verduzco on 08-12-2024 Respiratory pathogens DNA and RNA panel VIVIANA+non-probe (Nph) [facility] Serum globulin measurement b y calculation (mass/volume)Ordered By: Chase Dunn on 08-12-2024 Globulin (S) [Mass/Vol] 4.0 g/dL [facility] Comment on above: Performed By: #### P HOS, MG #### [address] Serum or plasma albumin/glob ulin mass ratioOrdered By: Chase Dunn on 08-12-2024 Albumin/Globulin [Mass ratio] 1.1 {ratio} [facility] Comment on above: Performed By: #### P HOS, MG #### [address] Serum or plasma anion gap de terminationOrdered By: Chase Dunn on 08-12-2024 Anion gap [Moles/Vol] 18.1 mmol/L High 6.0-15.0 [facility] Comment on above: Performed By: #### P HOS, MG #### [address] Sodium [Moles/volume] in Ser um or PlasmaOrdered By: Chase Dunn on 08-12-2024 Sodium [Moles/Vol] 139 mmol/L Normal 136-145 [facility] [facility] Comment on above: Performed By: #### P HOS, MG #### [address] Specific gravity Test strip (U) [Rel density]Ordered By: Chase Dunn on 08-12-2024 Specific gravity (U) [Rel density] 1.015 1.001-1.030 [facility] Thyrotropin [Units/volume] i n Serum or PlasmaOrdered By: Chase Dunn on 08-12-2024 TSH Qn 0.45 m[IU]/L Normal 0.45-5.33 [facility] Comment on above: Result Comment: PERF ORMED BY: [place] [address] PATHOLOGIST RESEARCH SPECIALIST SHERLY TATUM M.D. Performed By: #### P HOS, MG #### [facility] [address] [place], [place] [phone] [facility] Triglycerideson 08-12-2024 Triglyceride [Mass/Vol] 126 mg/dL Normal 35-149 [facility] Comment on above: Result Comment: TRIG ATP III CLASSIFICATION TRIG less than 150 mg/dL Normal TRIG 150-199 mg/dL Borderline high TRIG 200-500 mg/dL High TRIG greater than 500 mg/dL Very high Standard traceable to the Center for Disease Conrtrol and Prevention (CDC) test method. PERFORMED BY: [place] [address] PATHOLOGIST RESEARCH SPECIALIST SHERLY TATUM M.D. Performed By: #### B TONGUE AND QUARTER STITCHER #### [facility] [address] [place] [address] Troponin I High Sensitivityo n 08-12-2024 Troponin I High Sensitivity 176.4 pg/mL Off scale high 0.0-15.0 [facility] Comment on above: Result Comment: Crit ical Result : Called to and read back by: MARIO GARCIA at: 08/12/2024 12:08:54 by:MLG PERFORMED BY: [place] [address] PATHOLOGIST RESEARCH SPECIALIST SHERLY TATUM M.D. Performed By: #### P HOS, MG #### [place] [id number] [facility] Troponin I.cardiac [Mass/vol ume] in Serum or Plasma by Detection limit <= 0.01 ng/Ordered By: Chase Dunn on 08-12-2024 Troponin I.cardiac DL <= 0.01 ng/mL [Mass/Vol] 176.4 pg/mL High 0.0-15.0 [facility] Comment on above: Critical Result : Ca lled to and read back by: MARIO GARCIA at: 08/12/2024 12:08:54 by:MLG Urea nitrogen [Mass/volume] in Serum or PlasmaOrdered By: Chase Dunn on 08-12-2024 Urea nitrogen [Mass/Vol] 24 mg/dL Normal 7-25 [facility] Comment on above: Performed By: #### P HOS, MG #### [address] Urine Cultureon 08-12-2024 Bacteria identified Cx Nom (U) ORGANISM: Escherichia coli (O:ESCCOL) [place] Count >100,000 Aerobic GUIDO Charge (NMIC56) -- SUSCEPTIBILITY - ORGANISM: O:ESCCOL ANTIBIOTIC INTERPRETATION GUIDO Amikacin S <16 Amoxacillin/K Clavulanate S <8 Ampicillin R >16 Ampicillin/Sulbactam R >16 Aztreonam S <4 Cefazolin S 8 Cefepime S <2 Ceftazidime S <1 Ceftazidime/Avibactam S <4 Ceftolozane/Tazobactam S <2 Ceftriaxone S <1 Cefuroxime S <4 Ciprofloxacin S <0.25 Ertapenem S <0.5 Gentamicin S <2 Levofloxacin S <0.5 Meropenem S <1 Meropenem/Vaborbactam S <2 Nitrofurantoin S <32 Piperacillin/Tazobactam S <8 Tetracycline S <4 Tigecycline S <2 Tobramycin S <2 Trimethoprim/Sulfametho xazole S <0.5 S = SUSCEPTIBLE I = INTERMEDIATE R = RESISTANT BLANK = DATA NOT AVAILABLE, OR DRUG NOT ADVISABLE OR TESTED R* = RESISTANCE DUE TO EXTENDED SPECTRUM BETA-LACTAMASES ESBL = EXTENDED SPECTRUM BETA-LACTAMASE TFG = THYMIDINE-DEPENDENT STRAIN PRETTY = BETA-LACTAMASE POSITIVE IB = INDUCIBLE BETA-LACTAMASE. APPEARS IN PLACE OF 'S' WITH SPECIES KNOWN TO POSSESS INDUCIBLE BETA-LACTAMASES. POTENTIALLY THEY MAY BECOME RESISTANT TO ALL B-LACTAM DRUGS. PERFORMED BY: [place] [address] PATHOLOGIST RESEARCH SPECIALIST SHERLY TATUM M.D. Normal [facility] Comment on above: Performed By: #### P HOS, MG #### [address] Urine appearanceOrdered By: Chase Dunn on 08-12-2024 Appearance (U) Cloudy Critically abnormal Clear [facility] Comment on above: Order Comment: Comme nt may add on. Performed By: #### P HOS, MG #### [address] Urobilinogen Test strip (U) [Mass/Vol]Ordered By: Chase Dunn on 08-12-2024 Urobilinogen (U) [Mass/Vol] Normal mg/dL Normal [facility] XR chest 1V portableon 08-12 XR chest 1V portable [facility] Main [place] [address] [place] [address] XRay Report Signed Patient: German Jacob MR#: [id number] : 1990 Acct:[id number] Age/Sex: 33 / F ADM Date: 08/12/24 Loc: ER Room: Type: [facility] ER Attending Dr: Copies to: Chase Dunn DO Ordering Provider: Chase Dunn DO Date of Service: 08/12/24 XR/XR chest 1V portable: INUBATION AND CENTRAL LINE XR chest 1V portable 08/12/2024 3:46 PM SIGNS AND SYMPTOMS: INUBATION AND CENTRAL LINE PROTOCOL: Frontal radiograph of the chest COMPARISON: 08/12/2024 FINDINGS: The trachea is midline. The ET tube, enteric tube, and right IJ line are in satisfactory position. The tip of the right IJ line is in the distal superior vena cava. There is no pneumothorax. There is mild cardiomegaly. There is perihilar airspace opacity bilaterally. The bony thorax is intact. XR/XR chest 1V portable IMPRESSION: Interval placement of a right IJ line with the tip in the superior vena cava distally. No pneumothorax. Otherwise unchanged chest. Impression dictated by: Jb Cerrato M.D.08/12/2024 4:14 PM Dictation Location: RADIO-PC-13 Transcribed By: [facility] 08/12/24 1614 Dictated By: Jb Cerrato II, MD 08/12/24 1613 Signed By: 08/12/24 1614 Normal [facility] XR chest 1V portable [facility] Main [place] [id number] XRay Report Signed Patient: German Jacob MR#: [id number] : 1990 Acct:[id number] Age/Sex: 33 / F ADM Date: 08/12/24 Loc: ER Room: Type: [facility] ER Attending Dr: Copies to: Chase Dunn DO Ordering Provider: Chase Dunn DO Date of Service: 08/12/24 XR/XR chest 1V portable: ET TUBE PLACEMENT PORTABLE AP RECUMBENT CHEST 1341 hours CLINICAL HISTORY: Altered mental status with endotracheal tube placement. Suspected overdose. COMPARISON: 08/12/2024 1227 hours The endotracheal tube is at the thoracic inlet. There is an OG tube that extends into the stomach. Patchy airspace opacities are seen bilaterally. No obvious effusion or pneumothorax. Cardiac and mediastinal contours are similar. XR/XR chest 1V portable IMPRESSION: LIFE-SUPPORT DEVICES, DESCRIBED. BILATERAL INFILTRATES. Impression dictated by: Shavon Astorga M.D.08/12/2024 2:59 PM Dictation Location: RADIO-PC-10 Transcribed By: DES 08/12/24 1459 Dictated By: Shavon Astorga MD 08/12/24 1458 Signed By: 08/12/24 1459 Normal [facility] XR chest 1V portable [facility] Main [address] [address] XRay Report Signed Patient: German Jacob MR#: [id number] 14 : 1990 Acct:[id number] Age/Sex: 33 / F ADM Date: 08/12/24 Loc: ER Room: Type: PRE ER Attending Dr: Copies to: Chase Dunn DO Ordering Provider: Chase Dunn DO Date of Service: 08/12/24 XR/XR chest 1V portable: ET PLACEMENT SINGLE VIEW CHEST CLINICAL HISTORY: ET tube placement COMPARISON: Chest 08/12/2024 FINDINGS: ET tube is in satisfactory position. Worsening left lung airspace disease. Heart appears normal in size. Right lung appears relatively clear. No free air. No pneumothorax. XR/XR chest 1V portable IMPRESSION: ET TUBE IN SATISFACTORY POSITION. WORSENING LEFT LUNG AIRSPACE DISEASE. Impression dictated by: Vadim Mabry Jr., D.O.08/12/2024 12:42 PM Dictation Location: RADIO-PC-12 Transcribed By: DES 08/12/24 1242 Dictated By: Vadim Mabry Jr, DO 08/12/24 1240 Signed By: 08/12/24 1242 Normal [facility] XR chest 1V portable [facility] [place] [address] XRay Report Signed Patient: German Jacob MR#: [id number] 14 : 1990 Acct:[id number] Age/Sex: 33 / F ADM Date: 08/12/24 Loc: ER Room: Type: PRE ER Attending Dr: Copies to: Chase Dunn DO Ordering Provider: Chase Dunn DO Date of Service: 08/12/24 XR/XR chest 1V portable: Altered Mental Status SINGLE VIEW CHEST CLINICAL HISTORY: Altered mental status. COMPARISON: None FINDINGS: Heart appears normal in size. Questionable developing left upper lobe airspace disease. No pneumothorax pleural effusion or free air. XR/XR chest 1V portable IMPRESSION: QUESTIONABLE DEVELOPING LEFT UPPER LOBE AIRSPACE DISEASE. REPEAT CHEST X-RAY AFTER THERAPY IS SUGGESTED TO ENSURE RESOLUTION. Impression dictated by: Maddi Brown Jr..OAna08/12/2024 12:02 PM Dictation Location: RADIO-PC-12 Transcribed By: DES 08/12/24 1202 Dictated By: Vadim Mabry Jr, DO 08/12/24 1200 Signed By: 08/12/24 1202 Normal [facility] pH of Urine by Test stripOrd ered By: Chase Dunn on 08-12-2024 pH (U) 6.0 [pH] Normal 5.0-9.0 [facility] Comment on above: Order Comment: Comme nt may add on. Performed By: #### P HOS, MG #### [facility] [address] [place] [address] [facility] Quick Strepon 03-06-2023 S. pyogenes Org specific cx Ql (Throat) Negative [employer] [facility] Other Quick Strep [employer] [facility] Other CBCon 01-23-2023 Erythrocyte distribution width (RBC) [Ratio] 13.5 % Normal 11.8-14.4 [facility] Comment on above: Performed By: #### C DOLORES PT, CP #### [facility] [address] [place] [address] Dr. [place], [facility]83 Cheesemaker Helper: Elijah Harris MD Hematocrit (Bld) [Volume fraction] 30.0 % Low 36.3-47.1 [facility] Comment on above: Performed By: #### C DOLORES PT, CP #### [address] [place] [id number] Cheesemaker Helper: Elijah Harris MD Hemoglobin (Bld) [Mass/Vol] 9.9 g/dL Low 11.9-15.1 [facility] Comment on above: Performed By: #### C DOLORES PT, CP #### [facility] [address] [place] [address] Dr. [place]hu, [facility]83 Cheesemaker Helper: Elijah Harris MD MCH (RBC) [Entitic mass] 35.9 pg High 25.2-33.5 [facility] Comment on above: Performed By: #### C DOLORES, PT, CP #### [address] [place] [address] Cheesemaker Helper: Elijah Harris MD MCHC (RBC) [Mass/Vol] 33.0 g/dL Normal 28.4-34.[address] [facility] Comment on above: Performed By: #### C BC, PT, CP #### [address] [place], [place] [id number] Cheesemaker Helper: Elijah Harris MD MCV (RBC) [Entitic vol] 108.7 fL High 82.6-102.9 [facility] Comment on above: Performed By: #### C DOLORES, PT, CP #### [address] [place], [place] [id number] Cheesemaker Helper: Elijah Harris MD NRBC Automated 0.0 per [address] [facility] Comment on above: Performed By: #### C BC, PT, CP #### [address] [place], [place] [id number] Cheesemaker Helper: Elijah Harris MD Platelet mean volume (Bld) [Entitic vol] 10.4 fL Normal 8.1-13.5 [facility] Comment on above: Performed By: #### C DOLORES PT, CP #### [address] [place], [place] [phone] Cheesemaker Helper: Elijah Harris MD Platelets (Bld) [#/Vol] 379 10*3/uL Normal 138-453 [facility] Comment on above: Performed By: #### C DOLORES, PT, CP #### [address] [place], [place] [phone] Cheesemaker Helper: Elijah Harris MD RBC (Bld) [#/Vol] 2.76 10*6/uL Low 3.95-5.11 [facility] Comment on above: Performed By: #### C BC, PT, CP #### [address] [place], [place] [phone] Cheesemaker Helper: Elijah Harris MD WBC (Bld) [#/Vol] 4.3 10*3/uL Normal 3.5-11.3 [facility] Comment on above: Performed By: #### C DOLORES PT, CP #### [facility] [address] [place] [address] Cheesemaker Helper: Elijah Harris MD Hematocrit (Bld) [Volume fraction] 30.0 % Low 36.3 - 47.1 % [facility] Hemoglobin (Bld) [Mass/Vol] 9.9 g/dL Low 11.9 - 15.1 g/dL [facility] Interpretation and review of laboratory results Abnormal [facility] MCH (RBC) [Entitic mass] 35.9 pg High 25.2 - 33.5 pg [facility] MCHC (RBC) [Mass/Vol] 33.0 g/dL 28.4 - 34.8 g/dL [facility] MCV (RBC) [Entitic vol] 108.7 fL High 82.6 - 102.9 fL [facility] NRBC Automated 0.0 0.0 per 100 WBC [facility] Platelet distribution width (Bld) [Ratio] 13.5 % 11.8 - 14.4 % [facility] Platelet mean volume (Bld) [Entitic vol] 10.4 fL 8.1 - 13.5 fL [facility] Platelets (Bld) [#/Vol] 379 10*3/uL [facility] RBC (Bld) [#/Vol] 2.76 10*6/uL Low 3.95 - 5.1 1 m/uL [facility] WBC (Bld) [#/Vol] 4.3 10*3/uL [facility] Comp Metabolic Profon 2022 Albumin [Mass/Vol] 4.1 g/dL Normal 3.5-5.2 [facility] Comment on above: Performed By: #### C DOLORES, PT, CP #### [facility] [address] [place] [address] Cheesemaker Helper: Elijah Harris MD Albumin/Glob Ratio 1.1 Normal 1.0-2.5 [facility] Comment on above: Performed By: #### C BC, PT, CP #### [facility] [address] [place], [place] [phone] Cheesemaker Helper: Elijah Harris MD Alkaline Phos 161 U/L High 35-104 [facility] Comment on above: Performed By: #### C BC, PT, CP #### [facility] [address] [place], [place] [phone] Cheesemaker Helper: Elijah Harris MD ALT [Catalytic activity/Vol] 85 U/L High 5-33 [facility] Comment on above: Performed By: #### C BC, PT, CP #### [address] [place], [place] 48[address]783 Cheesemaker Helper: Elijah Harris MD Anion gap [Moles/Vol] 8 mmol/L Low 9-[address] [facility] Comment on above: Performed By: #### C BC, PT, CP #### [address] [place], [place] [address]83 Cheesemaker Helper: Elijah Harris MD AST [Catalytic activity/Vol] 87 U/L High <32 [facility] Comment on above: Performed By: #### C BC, PT, CP #### [facility] [address] [place], [place] [phone] Cheesemaker Helper: Elijah Harris MD Bilirubin [Mass/Vol] 0.5 mg/dL Normal 0.3-1.2 [facility] Comment on above: Performed By: #### C BC, PT, CP #### [facility] [address] [place], [place] [phone] Cheesemaker Helper: Elijah Harris MD BUN/CRE Ratio 24 High 9-20 [facility] Comment on above: Performed By: #### C BC, PT, CP #### [facility] [address] [place] [address] Cheesemaker Helper: Elijah Harris MD Calcium [Mass/Vol] 9.7 mg/dL Normal 8.6-10.4 [facility] Comment on above: Performed By: #### C BC, PT, CP #### [facility] [address] [place], [place] [phone] Cheesemaker Helper: Elijah Harris MD Chloride [Moles/Vol] 102 mmol/L Normal 98-107 [facility] Comment on above: Performed By: #### C DOLORES, PT, CP #### [facility] [address] [place] [address] Cheesemaker Helper: Elijah Harris MD CO2 [Moles/Vol] 29 mmol/L Normal 20-31 [facility] Comment on above: Performed By: #### C DOLORES, PT, CP #### [facility] [address] [place], [place] [phone] Cheesemaker Helper: Elijah Harris MD Creatinine [Mass/Vol] 0.59 mg/dL Normal 0.50-0.[address] [facility] Comment on above: Performed By: #### C DOLORES, PT, CP #### [facility] [address] [place], [place] [phone] Cheesemaker Helper: Elijah Harris MD GFR/1.73 sq M.predicted among non-blacks MDRD (S/P/Bld) [Vol rate/Area] mL/min/{1.73_m2} Normal >60 [facility] Comment on above: Result Comment: These results are not intended for use in patients <18 years of age. eGFR results are calculated without a race factor using the 2020 CKD-EPI equation. Careful clinical correlation is recommended, particularly when comparing to results calculated using previous equations. The CKD-EPI equation is less accurate in patients with extremes of muscle mass, extra-renal metabolism of creatine, excessive creatine ingestion, or following therapy that affects renal tubular secretion. Performed By: #### C BC, PT, CP #### [facility] [address] [place] [phone] Cheesemaker Helper: Elijah Harris MD Glucose [Mass/Vol] 107 mg/dL High 70-99 [facility] Comment on above: Performed By: #### C DOLORES, PT, CP #### [facility] [address] [place], [place] [phone] Cheesemaker Helper: Elijah Harris MD Potassium [Moles/Vol] 4.3 mmol/L Normal 3.7-5.[address] [facility] Comment on above: Performed By: #### C DOLORES PT, CP #### [facility] [address] [place], [place] [phone] Cheesemaker Helper: Elijah Harris MD Protein [Mass/Vol] 7.7 g/dL Normal 6.4-8.3 [facility] Comment on above: Performed By: #### C DOLORES PT, CP #### [facility] [address] [place], [place] [address] Cheesemaker Helper: Elijah Harris MD Sodium [Moles/Vol] 139 mmol/L Normal 135-144 [facility] Comment on above: Performed By: #### C DOLORES PT, CP #### [facility] [address] [place], [place] [phone] Cheesemaker Helper: Elijah Harris MD Urea nitrogen [Mass/Vol] 14 mg/dL Normal 6-20 [facility] Comment on above: Performed By: #### C DOLORES, PT, CP #### [facility] [address] [place], [place] [phone] Cheesemaker Helper: Elijah Harris MD Comprehensive Metabolic Pane [facility] 01-23-2023 Albumin [Mass/Vol] 4.1 g/dL 3.5 - 5.2 g/dL [facility] Albumin/Globulin [Mass ratio] 1.1 {ratio} 1.0 - 2.5 [facility] ALP [Catalytic activity/Vol] 161 U/L High 35 - 104 U/L [facility] ALT [Catalytic activity/Vol] 85 U/L High 5 - 33 U/L [facility] Anion gap [Moles/Vol] 8 mmol/L Low 9 - 17 mmol/L [facility] AST [Catalytic activity/Vol] 87 U/L High NINF - 32 U/L [facility] Bilirubin [Mass/Vol] 0.5 mg/dL 0.3 - 1 .2 mg/dL [facility] Calcium [Mass/Vol] 9.7 mg/dL 8.6 - 10. 4 mg/dL [facility] Chloride [Moles/Vol] 102 mmol/L 98 - 10 7 mmol/L [facility] CO2 [Moles/Vol] 29 mmol/L 20 - 31 mmol/L [facility] Creatinine [Mass/Vol] 0.59 mg/dL 0.50 - 0.90 mg/dL [facility] GFR/1.73 sq M.predicted MDRD (S/P/Bld) [Vol rate/Area] - PINF [facility] Comment on above: These results are not intended for use in patients <18 years of age. eGFR results are calculated without a race factor using the 2020 CKD-EPI equation. Careful clinical correlation is recommended, particularly when comparing to results calculated using previous equations. The CKD-EPI equation is less accurate in patients with extremes of muscle mass, extra-renal metabolism of creatine, excessive creatine ingestion, or following therapy that affects renal tubular secretion. Glucose [Mass/Vol] 107 mg/dL High 70 - 99 mg/dL [facility] Interpretation and review of laboratory results Abnormal [facility] Potassium [Moles/Vol] 4.3 mmol/L 3.7 - 5.3 mmol/L [facility] Protein [Mass/Vol] 7.7 g/dL 6.4 - 8.3 g/dL [facility] Sodium [Moles/Vol] 139 mmol/L 135 - 144 mmol/L [facility] Urea nitrogen [Mass/Vol] 14 mg/dL 6 - 20 mg/dL [facility] Urea nitrogen/Creatinine (Bld) [Mass ratio] 24 High 9 - 20 [facility] PTon 01-23-2023 INR Coag (PPP) [Relative time] 0.9 {INR} Normal [facility] Comment on above: Result Comment: Therapeutic Range: Moderate Anticoagulant Intensity: INR = 2.0-3.0 High Anticoagulant Intensity: INR = 2.5-3.5 Performed By: #### C BC, PT, CP #### [facility] [address] [place] [address] Cheesemaker Helper: Elijah Harris MD PT Coag (PPP) [Time] 12.0 s Normal 11.5-14.2 [facility] Comment on above: Performed By: #### C BC, PT, CP #### [facility] [address] [place] [address] Cheesemaker Helper: Elijah Harris MD [employer]-[facility]Ron 01-23-2023 INR Coag (PPP) [Relative time] 0.9 {INR} [facility] Comment on above: Therapeutic Range: Moderate Anticoagulant Intensity: INR = 2.0-3.0 High Anticoagulant Intensity: INR = 2.5-3.5 PT Coag (PPP) [Time] 12 s [facility] Cult,Bloodon 01-18-2023 Cult,Blood Specimen Description .BLOOD Special Requests RT ARM 6ML Culture NO GROWTH 5 DAYS Report Status FINAL 01/18/2023 [facility] Comment on above: Performed By: #### B 12FOL, FEBC, LIVP #### [facility] [address] [place] [phone] Cheesemaker Helper: Vijay Larios MD #### AASMF #### [facility] [address] [place] [address] Cheesemaker Helper: Matthew Elkins MD Cult,Blood Specimen Description .BLOOD Special Requests RT HAND 5ML Culture NO GROWTH 5 DAYS Report Status FINAL 01/18/2023 [facility] Comment on above: Performed By: #### B C #### [facility] [employer] [address] [place] [id number] Cheesemaker Helper: Vijay Larios MD Smooth Muscle Abon Smooth Muscle Ab 7 Units Normal 0-19 [facility] Comment on above: Result Comment: (NOT E) If F-Actin (Smooth Muscle) Antibody, IgG is negative, the Smooth Muscle Antibody titer by IFA is not performed. REFERENCE INTERVAL: F-Actin (Smooth Muscle) Antibody, IgG by ARELI 19 Units or less ....... Negative 20 - 30 Units .......... Weak Positive-Suggest repeat testing in two to three weeks with fresh specimen. 31 Units or greater..... Positive-Suggestive of autoimmune hepatitis type 1 or chronic active hepatitis. F-actin IgG antibodies have been shown to have increased sensitivity for autoimmune hepatitis (AIH) but lower specificity than smooth muscle antibodies (SMA). F-actin IgG antibodies can also be seen in SMA-negative disease controls (non-AIH), especially in patients with primary biliary cirrhosis and chronic hepatitis C infections. Some patients with AIH may be SMA-positive but negative for F-actin IgG. Consider testing for SMA by IFA if suspicion for AIH is strong. Performed By: [facility] [address] [place] [address] Chemical Operator: Eligio Sanders MD, PhD Performed By: #### B 12FOL, [facility], LIVP #### [address] [address] Cheesemaker Helper: Vijay Larios MD #### AASMF #### [facility] [address] [place], [place] [id number] Cheesemaker Helper: Matthew Elkins MD Smooth Muscle Antibody Quant on 01-17-2023 Smooth Muscle Ab 7 [facility] Comment on above: (NOTE) If F-Actin (Smooth Muscle) Antibody, IgG is negative, the Smooth Muscle Antibody titer by IFA is not performed. REFERENCE INTERVAL: F-Actin (Smooth Muscle) Antibody, IgG by ARELI 19 Units or less ....... Negative 20 - 30 Units .......... Weak Positive-Suggest repeat testing in two to three weeks with fresh specimen. 31 Units or greater..... Positive-Suggestive of autoimmune hepatitis type 1 or chronic active hepatitis. F-actin IgG antibodies have been shown to have increased sensitivity for autoimmune hepatitis (AIH) but lower specificity than smooth muscle antibodies (SMA). F-actin IgG antibodies can also be seen in SMA-negative disease controls (non-AIH), especially in patients with primary biliary cirrhosis and chronic hepatitis C infections. Some patients with AIH may be SMA-positive but negative for F-actin IgG. Consider testing for SMA by IFA if suspicion for AIH is strong. Performed By: [facility] [address] [place] [address] Chemical Operator: Eligio Sanders MD, PhD [facility] Metabolic Pr/rfx MGon 0 01-15-2023 Albumin [Mass/Vol] 3.7 g/dL Normal 3.5-5.2 [facility] Comment on above: Performed By: #### C MPX #### [address] [address] Cheesemaker Helper: Vijay Larios MD Albumin/Glob Ratio 1.2 Normal 1.0-2.5 [facility] Comment on above: Performed By: #### C MPX #### [facility] [employer] [address] [place] [id number] Cheesemaker Helper: Vijay Larios MD Alkaline Phos 274 U/L High 35-104 [facility] Comment on above: Result Comment: SPEC IMEN SLIGHTLY HEMOLYZED, RESULTS MAY BE ADVERSELY AFFECTED. Performed By: #### C MPX #### [facility] [address] [place] [id number] Cheesemaker Helper: Vijay Larios MD ALT [Catalytic activity/Vol] 233 U/L High 5-33 [facility] Comment on above: Result Comment: SPEC IMEN SLIGHTLY HEMOLYZED, RESULTS MAY BE ADVERSELY AFFECTED. Performed By: #### C MPX #### [address] [address] Cheesemaker Helper: Vijay Larios MD Anion gap [Moles/Vol] 10 mmol/L Normal 9-17 [facility] Comment on above: Performed By: #### C MPX #### [facility] [address] [place] [phone] Cheesemaker Helper: Vijay Larios MD AST [Catalytic activity/Vol] 302 U/L High <32 [facility] Comment on above: Result Comment: SPEC IMEN SLIGHTLY HEMOLYZED, RESULTS MAY BE ADVERSELY AFFECTED. Performed By: #### C MPX #### [facility] [address] [place] [phone] Cheesemaker Helper: Vijay Larios MD Bilirubin [Mass/Vol] 1.3 mg/dL High 0.3-1.2 [facility] Comment on above: Performed By: #### C MPX #### [facility] [address] [place] [address] Cheesemaker Helper: Vijay Larios MD Calcium [Mass/Vol] 8.6 mg/dL Normal 8.6-10.4 [facility] Comment on above: Performed By: #### C MPX #### [facility] [address] [place] [address] Cheesemaker Helper: Vijay Larios MD Chloride [Moles/Vol] 97 mmol/L Low 98-107 [facility] Comment on above: Performed By: #### C MPX #### [facility] [address] [place] [phone] Cheesemaker Helper: Vijay Larios MD CO2 [Moles/Vol] 25 mmol/L Normal 20-31 [facility] Comment on above: Performed By: #### C MPX #### [facility] [address] [place] [address] Cheesemaker Helper: Vijay Larios MD Creatinine [Mass/Vol] 0.43 mg/dL Low 0.50-0.90 [facility] Comment on above: Performed By: #### C MPX #### [facility] [address] [place] [address] Cheesemaker Helper: Vijay Larios MD GFR/1.73 sq M.predicted among non-blacks MDRD (S/P/Bld) [Vol rate/Area] mL/min/{1.73_m2} Normal >60 [facility] Comment on above: Result Comment: These results are not intended for use in patients <18 years of age. eGFR results are calculated without a race factor using the 2020 CKD-EPI equation. Careful clinical correlation is recommended, particularly when comparing to results calculated using previous equations. The CKD-EPI equation is less accurate in patients with extremes of muscle mass, extra-renal metabolism of creatine, excessive creatine ingestion, or following therapy that affects renal tubular secretion. Performed By: #### C MPX #### [address] [address] Cheesemaker Helper: Vijay Larios MD Glucose [Mass/Vol] 114 mg/dL High 70-99 [facility] Comment on above: Performed By: #### C MPX #### [facility] [address] [place] [address] Cheesemaker Helper: Vijay Larios MD Potassium [Moles/Vol] 4.7 mmol/L Normal 3.7-5.3 [facility] Comment on above: Result Comment: SPEC IMEN SLIGHTLY HEMOLYZED, RESULTS MAY BE ADVERSELY AFFECTED. Performed By: #### C MPX #### [facility] [address] [place] [address] Cheesemaker Helper: Vijay Larios MD Protein [Mass/Vol] 6.7 g/dL Normal 6.4-8.3 [facility] Comment on above: Performed By: #### C MPX #### [facility] [address] [place] [address] Cheesemaker Helper: Vijay Larios MD Sodium [Moles/Vol] 132 mmol/L Low 135-144 [facility] Comment on above: Performed By: #### C MPX #### [facility] [address] [place], [place] [phone] Cheesemaker Helper: Vijay Larios MD Urea nitrogen [Mass/Vol] 7 mg/dL Normal 6-20 [facility] Comment on above: Performed By: #### C MPX #### [facility] [address] [place], [place] [phone] Cheesemaker Helper: Vijay Larios MD Comprehensive Metabolic Pane l w/ Reflex to MGon 01-15-2023 Albumin [Mass/Vol] 3.7 g/dL 3.5 - 5.2 g/dL [facility] Albumin/Globulin [Mass ratio] 1.2 {ratio} 1.0 - 2.5 [facility] ALP [Catalytic activity/Vol] 274 U/L High 35 - 104 U/L [facility] Comment on above: SPECIMEN SLIGHTLY HE MOLYZED, RESULTS MAY BE ADVERSELY AFFECTED. ALT [Catalytic activity/Vol] 233 U/L High 5 - 33 U/L [facility] Comment on above: SPECIMEN SLIGHTLY HE MOLYZED, RESULTS MAY BE ADVERSELY AFFECTED. Anion gap [Moles/Vol] 10 mmol/L 9 - 17 mmol/L [facility] AST [Catalytic activity/Vol] 302 U/L High NINF - 32 U/L [facility] [facility] Comment on above: SPECIMEN SLIGHTLY HE MOLYZED, RESULTS MAY BE ADVERSELY AFFECTED. Bilirubin [Mass/Vol] 1.3 mg/dL High 0.3 - 1 .2 mg/dL [facility] [employer] [place] Calcium [Mass/Vol] 8.6 mg/dL 8.6 - 10. 4 mg/dL [facility] Chloride [Moles/Vol] 97 mmol/L Low 98 - 10 7 mmol/L [facility] [place] CO2 [Moles/Vol] 25 mmol/L 20 - 31 mmol/L [facility]ITAL[facility]SAM[facility] Creatinine [Mass/Vol] 0.43 mg/dL Low 0.50 - 0.90 mg/dL [facility] [place] GFR/1.73 sq M.predicted MDRD (S/P/Bld) [Vol rate/Area] - PINF [facility] [employer] Comment on above: These results are not intended for use in patients <18 years of age. eGFR results are calculated without a race factor using the 2020 CKD-EPI equation. Careful clinical correlation is recommended, particularly when comparing to results calculated using previous equations. The CKD-EPI equation is less accurate in patients with extremes of muscle mass, extra-renal metabolism of creatine, excessive creatine ingestion, or following therapy that affects renal tubular secretion. Glucose [Mass/Vol] 114 mg/dL High 70 - 99 mg/dL [facility] [employer] Interpretation and review of laboratory results Abnormal [facility] Potassium [Moles/Vol] 4.7 mmol/L 3.7 - 5.3 mmol/L [facility] Comment on above: SPECIMEN SLIGHTLY HE MOLYZED, RESULTS MAY BE ADVERSELY AFFECTED. Protein [Mass/Vol] 6.7 g/dL 6.4 - 8.3 g/dL [facility] [employer] Sodium [Moles/Vol] 132 mmol/L Low 135 - 144 mmol/L [facility] Urea nitrogen [Mass/Vol] 7 mg/dL 6 - 20 mg/dL [facility] US ABDOMEN LIMITEDon 01-15- 023 US ABDOMEN LIMITED EXAMINATION: RIGHT UPPER QUADRANT ULTRASOUND 01/14/2023 10:32 am COMPARISON: None HISTORY: ORDERING SYSTEM PROVIDED HISTORY: eval jaundice TECHNOLOGIST PROVIDED HISTORY: eval jaundice Specify organ?->LIVER Specify organ?->GALLBLADDER Specify organ?->PANCREAS Specify organ?->SPLEEN Elevated AST, ALT and total bilirubin FINDINGS: LIVER: There is increased echogenicity of the liver suggesting fatty infiltration. No evidence of intrahepatic biliary ductal dilatation. BILIARY SYSTEM: Gallbladder is unremarkable without evidence of pericholecystic fluid, wall thickening or stones. Negative sonographic Morales's sign. Common bile duct is borderline dilated measuring 7-8 mm. RIGHT KIDNEY: The right kidney is grossly unremarkable without evidence of hydronephrosis. PANCREAS: Visualized portions of the pancreas are unremarkable. OTHER: No evidence of right upper quadrant ascites. Cystic 6 mm lesion is present in the spleen. Spleen is normal size measuring 11 cm in length. IMPRESSION: Borderline dilated common bile duct up to 7-8 mm. Given the patient's elevated bilirubin, further evaluation should be considered. MRCP can be considered. No cholelithiasis. Liver steatosis. Interpreted by: Ryne Ny MD Signed by: Ryne Ny MD 01/15/23 Final result Normal [facility] US ABDOMEN LIMITED Specify o rgan? LIVER, GALLBLADDER, PANCREAS, SPLEENon 01-15-2023 EXAMINATION: RIGHT UPPER QUADRANT ULTRASOUND 01/14/2023 10:32 am COMPARISON: None HISTORY: ORDERING SYSTEM PROVIDED HISTORY: eval jaundice TECHNOLOGIST PROVIDED HISTORY: eval jaundice Specify organ?->LIVER Specify organ?->GALLBLADDER Specify organ?->PANCREAS Specify organ?->SPLEEN Elevated AST, ALT and total bilirubin FINDINGS: LIVER: There is increased echogenicity of the liver suggesting fatty infiltration. No evidence of intrahepatic biliary ductal dilatation. BILIARY SYSTEM: Gallbladder is unremarkable without evidence of pericholecystic fluid, wall thickening or stones. Negative sonographic Morales's sign. Common bile duct is borderline dilated measuring 7-8 mm. RIGHT KIDNEY: The right kidney is grossly unremarkable without evidence of hydronephrosis. PANCREAS: Visualized portions of the pancreas are unremarkable. OTHER: No evidence of right upper quadrant ascites. Cystic 6 mm lesion is present in the spleen. Spleen is normal size measuring 11 cm in length. [facility] Ryne Rodriguez MD - 01/15/2023 EXAMINATION: RIGHT UPPER QUADRANT ULTRASOUND 01/14/2023 10:32 am COMPARISON: None HISTORY: ORDERING SYSTEM PROVIDED HISTORY: eval jaundice TECHNOLOGIST PROVIDED HISTORY: eval jaundice Specify organ?->LIVER Specify organ?->GALLBLADDER Specify organ?->PANCREAS Specify organ?->SPLEEN Elevated AST, ALT and total bilirubin FINDINGS: LIVER: There is increased echogenicity of the liver suggesting fatty infiltration. No evidence of intrahepatic biliary ductal dilatation. BILIARY SYSTEM: Gallbladder is unremarkable without evidence of pericholecystic fluid, wall thickening or stones. Negative sonographic Morales's sign. Common bile duct is borderline dilated measuring 7-8 mm. RIGHT KIDNEY: The right kidney is grossly unremarkable without evidence of hydronephrosis. PANCREAS: Visualized portions of the pancreas are unremarkable. OTHER: No evidence of right upper quadrant ascites. Cystic 6 mm lesion is present in the spleen. Spleen is normal size measuring 11 cm in length. IMPRESSION: Borderline dilated common bile duct up to 7-8 mm. Given the patient's elevated bilirubin, further evaluation should be considered. MRCP can be considered. No cholelithiasis. Liver steatosis. [facility] [place] Work Phone: US ABDOMEN LIMITED Specify o rgan? LIVER, GALLBLADDER, PANCREAS, SPLEENOrdered By: Ryne Ny on 01-15-2023 [facility] [employer] Work Phone: DANIELLA SCREEN WITH REFLEXon DNA double strand IgG IA Ql (S) NINF [facility] Comment on above: Reference Range: <10.0 Negative 10.0-15.0 Equivocal >15.0 Positive Nuclear Ab IA Ql (S) Negative NEGATIVE [facility] Nuclear IgG IA (S) [Ratio] 0.2 U/mL [facility] - 0.7 U/mL [facility] [employer] Comment on above: Reference Range: <0.7 Negative 0.7-1.0 Equivocal >1.0 Positive SELINA Screen includes U1RNP,RNP70,Sm,Ro(SS-A),La(SS-B),CENP,Scl-70,Yaz-1 DANIELLA Screen w/reflexon 2022 DANIELLA Screen Negative Normal NEG [facility] Comment on above: Performed By: #### D JATINDER HALL UAX #### [employer] [address] [place] [phone] Cheesemaker Helper: Vijay Larios MD Anti-dsDNA <0.5 Normal <10.0 [facility] Comment on above: Result Comment: Reference Range: <10.0 Negative 10.0-15.0 Equivocal >15.0 Positive Performed By: #### D JATINDER HALL UAX #### [facility] [address] [place] [phone] Cheesemaker Helper: Vijay Larios MD SELINA Screen 0.2 U/mL Normal <0.7 [facility] Comment on above: Result Comment: Reference Range: <0.7 Negative 0.7-1.0 Equivocal >1.0 Positive SELINA Screen includes U1RNP,RNP70,Sm,Ro(SS-A),La(SS-B),CENP,Scl-70,Yaz-1 Performed By: #### D JATINDER HALL UAX #### [facility] [address] [place] [address] Cheesemaker Helper: Vijay Larios MD Anti-Mitochondrial Abon - Anti-Mitochondrial Ab 1.1 U/mL Normal 0.0-4.0 [facility] Comment on above: Result Comment: Reference Range: <4.0 Negative 4.0-6.0 Equivocal >6.0 Positive When results are Equivocal, it is recommended to retest after 8-12 weeks. Performed By: #### JATINDER JONES UAX #### [facility] [address] [place] [address] Cheesemaker Helper: Vijay Larios MD B12/Folate Panelon Cobalamin (Vitamin B12) [Mass/Vol] 852 pg/mL Normal 232-1245 [facility] Comment on above: Performed By: #### Josr 12FOL FEBC, LIVP #### [facility] [address] [place] [phone] Cheesemaker Helper: Vijay Larios MD #### AASMF #### [facility] [address] [place] [address] Cheesemaker Helper: Matthew Elkins MD Folic Acid 12.5 ng/mL Normal >4.8 [facility] Comment on above: Performed By: #### Josr WardFOL FEBC, LIVP #### [facility] [address] [place] [address] Cheesemaker Helper: Vijay Larios MD #### AASMF #### [facility] [address] [place] [address] Cheesemaker Helper: Matthew Elkins MD Hepatic Function Panelon Albumin [Mass/Vol] 3.5 g/dL 3.5 - 5.2 g/dL [facility] Albumin/Globulin [Mass ratio] 1.1 {ratio} 1.0 - 2.5 [facility] ALP [Catalytic activity/Vol] 315 U/L High 35 - 104 U/L [facility] ALT [Catalytic activity/Vol] 288 U/L High 5 - 33 U/L [facility] AST [Catalytic activity/Vol] 469 U/L High NINF - 32 U/L [facility] Bilirubin [Mass/Vol] 1.9 mg/dL High 0.3 - 1 .2 mg/dL [facility] Bilirubin.direct [Mass/Vol] 0.9 mg/dL High NINF - 0.3 mg/dL [facility] Bilirubin.indirect [Mass/Vol] 1 mg/dL 0.0 - 1.0 mg/dL [facility] Interpretation and review of laboratory results Abnormal [facility] Protein [Mass/Vol] 6.6 g/dL 6.4 - 8.3 g/dL [facility] Iron Binding Cap.on 01-14-20 23 % Fe Saturation Unable to calculate due to low iron binding result. Normal 20-55 [facility] Comment on above: Performed By: #### B 12FOL, FEBC, LIVP #### [facility] [address] [place] [phone] Cheesemaker Helper: Vijay Larios MD #### AASMF #### [facility] [address] [place] [address] Cheesemaker Helper: Matthew Elkins MD Total Fe Binding Cap Unable to calculate due to low iron binding result. Normal 250-450 [facility] Comment on above: Performed By: #### B 12FOL, FEBC, LIVP #### [facility] [address] [place] [address] [phone] Cheesemaker Helper: Vijay Larios MD #### AASMF #### [facility] [address] [place] [address] Cheesemaker Helper: Matthew Elkins MD Unbound Fe Bind Cap <17 Low 112-347 [facility] Comment on above: Performed By: #### B 12FOL, FEBC, LIVP #### [facility] [address] [place], [place] [phone] Cheesemaker Helper: Vijay Larios MD #### AASMF #### [facility] [address] [place], [place] [phone] Cheesemaker Helper: Matthew Elkins MD Iron [Mass/Vol] 251 ug/dL High 37-145 [facility] Comment on above: Performed By: #### B 12FOL, FEBC, LIVP #### [facility] [address] [place], [place] [phone] Cheesemaker Helper: Vijay Larios MD #### AASMF #### [facility] [address] [place] [address] Cheesemaker Helper: Matthew Elkins MD Iron and TIBCon 01-14-2023 Interpretation and review of laboratory results Abnormal [facility] [place] Iron [Mass/Vol] 251 ug/dL High 37 - 145 ug/dL [facility] [place] Iron binding capacity [Mass/Vol] Unable to calculate due to low iron binding result. 250 - 450 ug/dL [facility] [place] Iron Saturation Unable to calculate due to low iron binding result. 20 - 55 % [facility] [place] UIBC ug/dL Low 112 - 347 ug/dL [facility] [place] Liver Profileon 01-14-2023 Albumin [Mass/Vol] 3.5 g/dL Normal 3.5-5.2 [facility] Comment on above: Performed By: #### B 12FOL, FEBC, LIVP #### [facility] [address] [place], [place] [phone] Cheesemaker Helper: Vijay Larios MD #### AASMF #### [facility] [address] [place] [address] Cheesemaker Helper: Matthew Elkins MD Albumin/Glob Ratio 1.1 Normal 1.0-2.5 [facility] Comment on above: Performed By: #### B 12FOL, FEBC, LIVP #### [facility] [place] [address] Cheesemaker Helper: Vijay Larios MD #### AASMF #### [facility] [address] [place] [address] Cheesemaker Helper: Matthew Elkins MD Alkaline Phos 315 U/L High 35-104 [facility] Comment on above: Performed By: #### B 12FOL, FEBC, LIVP #### [address] [address] Cheesemaker Helper: Vijay Larios MD #### AASMF #### [facility] [address] [place], [place] [id number] Cheesemaker Helper: Matthew Elkins MD ALT [Catalytic activity/Vol] 288 U/L High 5-33 [facility] Comment on above: Performed By: #### B 12FOL, FEBC, LIVP #### [address] [address] Cheesemaker Helper: Vijay Larios MD #### AASMF #### [facility] [address] [place] [address] Cheesemaker Helper: Matthew Elkins MD AST [Catalytic activity/Vol] 469 U/L High <32 [facility] Comment on above: Performed By: #### B 12FOL, FEBC, LIVP #### [address] [address] Cheesemaker Helper: Vijay Larios MD #### AASMF #### [facility] [address] [place] [address] Cheesemaker Helper: Matthew Elkins MD Bilirubin [Mass/Vol] 1.9 mg/dL High 0.3-1.2 [facility] Comment on above: Performed By: #### B 12FOL, FEBC, LIVP #### [facility] [place], [place] [phone] Cheesemaker Helper: Vijay Larios MD #### AASMF #### [facility] [address] [place], [place] [phone] Cheesemaker Helper: Matthew Elkins MD Bilirubin, Indirect 1.0 mg/dL Normal 0.0-1.0 [facility] Comment on above: Performed By: #### B 12FOL, FEBC, LIVP #### [address] [id number] Cheesemaker Helper: Vijay Larios MD #### AASMF #### [address] [id number] Cheesemaker Helper: Matthew Elkins MD Bilirubin.indirect [Mass/Vol] 0.9 mg/dL High <0.3 [facility] Comment on above: Performed By: #### Josr 12FOL, FEBC, LIVP #### [address] [phone] Cheesemaker Helper: Vijay Larios MD #### AASMF #### [facility] [address] [place], [place] [id number] Cheesemaker Helper: Matthew Elkins MD Protein [Mass/Vol] 6.6 g/dL Normal 6.4-8.3 [facility] Comment on above: Performed By: #### Josr 12FOL, FEBC, LIVP #### [address] [phone] Cheesemaker Helper: Vijay Larios MD #### AASMF #### [facility] [address] [place], [place] [id number] Cheesemaker Helper: Matthew Elkins MD MITOCHONDRIAL ANTIBODIES, M2 , IGGon 01-14-2023 Mitochondrial Ab 1.1 U/mL 0.0 - 4.0 U/mL [facility] Comment on above: Reference Range: <4.0 Negative 4.0-6.0 Equivocal >6.0 Positive When results are Equivocal, it is recommended to retest after 8-12 weeks. No Panel Informationon 01-14 [facility] US ABDOMEN LIMITED Specify o rgan? LIVER, GALLBLADDER, PANCREAS, SPLEENon 01-14-2023 Radiology Study observation (narrative) [facility] [employer] Work Phone: Vitamin B12 & Folateon 01-14 Cobalamin (Vitamin B12) [Mass/Vol] 852 pg/mL 232 - 1245 pg/mL [facility] [employer] [place] Folate [Mass/Vol] 12.5 ng/mL 4.8 - PINF ng/mL [facility] [employer] [facility] APTTon 01-13-2023 aPTT Coag (Bld) [Time] 23.0 s Normal 20.5-30.5 [facility] Comment on above: Result Comment: IV Heparin Therapy Range: 48.6-77.8 Performed By: #### D JATINDER HALL UAX #### [employer] [address] [place] [address] [phone] Cheesemaker Helper: Vijay Larios MD aPTT Coag (Bld) [Time] 23.0 s [facility] Comment on above: IV Heparin Therapy Range: 48.6-77.8 Acetaminophenon 01-13-2023 Acetaminophen [Mass/Vol] ug/mL Low 10-30 [facility] Comment on above: Performed By: #### JATINDER JONES UAX #### [facility] [address] [place] [address] Cheesemaker Helper: Vijay Larios MD Bftvh-5-Yozhdckbwnnbk 2022 Gbiho-1-Gmbzrgmcobl 125 mg/dL Normal 90-200 [facility] Comment on above: Performed By: #### JATINDER JONES UAX #### [employer] [address] [place] [phone] Cheesemaker Helper: Vijay Larios MD Alpha 1 antitrypsin [Mass/Vol] 125 mg/dL 90 - 200 mg/dL [facility] CBC with Auto Differentialon 01-13-2023 Absolute Eos # [facility] Absolute Immature Granulocyte [facility] Absolute Lymph # 1.42 [facility] Absolute Hancock # 0.28 [facility] Basophils Absolute [facility] Basophils/100 WBC (Bld) 1 % 0 - 2 % [facility] Eosinophils/100 WBC (Bld) 0 % Low 1 - 4 % [facility] Hematocrit (Bld) [Volume fraction] 31.1 % Low 36.3 - 47.1 % [facility] Hemoglobin (Bld) [Mass/Vol] 10.4 g/dL Low 11.9 - 15.1 g/dL [facility] Immature granulocytes/100 WBC (Bld) 0 % 0 [facility] Interpretation and review of laboratory results Abnormal [facility] Lymphocytes/100 WBC (Bld) 32 % 24 - 43 % [facility] MCH (RBC) [Entitic mass] 35.4 pg High 25.2 - 33.5 pg [facility] MCHC (RBC) [Mass/Vol] 33.4 g/dL 28.4 - 34.8 g/dL [facility] MCV (RBC) [Entitic vol] 105.8 fL High 82.6 - 102.9 fL [facility] Monocytes/100 WBC (Bld) 6 % 3 - 12 % [facility] NRBC Automated 0.0 0.0 per 100 WBC [facility] Platelet distribution width (Bld) [Ratio] 14.6 % High 11.8 - 14.4 % [facility] Platelet mean volume (Bld) [Entitic vol] 8.9 fL 8.1 - 13.5 fL [facility] Platelets (Bld) [#/Vol] 100 10*3/uL Low [facility] RBC (Bld) [#/Vol] 2.94 10*6/uL Low 3.95 - 5.1 1 m/uL [facility] RBC (Bld) [#/Vol] ANISOCYTOSIS PRESENT [facility] Comment on above: MACROCYTOSIS PRESENT Segmented neutrophils/100 WBC (Bld) 61 % 36 - 65 % [facility] Segs Absolute 2.70 [facility] WBC (Bld) [#/Vol] 4.4 10*3/uL [facility] CBC with Diffon 01-13-2023 Abs. Basophil <0.03 Normal 0.00-0.20 [facility] Comment on above: Performed By: #### JATINDER JONES UAX #### [facility] [address] [place] [phone] Cheesemaker Helper: Vijay Larios MD Abs. Eosinophil <0.03 Normal 0.00-0.44 [facility] Comment on above: Performed By: #### JATINDER JONES UAX #### [facility] [address] [place] [address] Cheesemaker Helper: Vijay Larios MD Abs.Imm.Granulocyte <0.03 Normal 0.00-0.30 [facility] Comment on above: Performed By: #### JATINDER JONES UAX #### [employer] [address] [place] [phone] Cheesemaker Helper: Vijay Larios MD Abs.Neutrophil (Seg) 2.70 k/uL Normal 1.50-8.10 [facility] Comment on above: Performed By: #### JATINDER JONES UAX #### [employer] [address] [place] [phone] Cheesemaker Helper: Vijay Larios MD Basophils/100 WBC (Bld) 1 % Normal 0-2 [facility] Comment on above: Performed By: #### JATINDER JONES UAX #### [facility] [address] [place] [phone] Cheesemaker Helper: Vijay Larios MD Eosinophils/100 WBC (Bld) 0 % Low 1-4 [facility] Comment on above: Performed By: #### JATINDER JONES UAX #### [facility] [address] [place] [phone] Cheesemaker Helper: Vijay Larios MD Erythrocyte distribution width (RBC) [Ratio] 14.6 % High 11.8-14.4 [facility] Comment on above: Performed By: #### JATINDER JONES UAX #### [facility] [address] [place] [address] Cheesemaker Helper: Vijay Larios MD Hematocrit (Bld) [Volume fraction] 31.1 % Low 36.3-47.1 [facility] Comment on above: Performed By: #### JATINDER JONES UAX #### [facility] [address] [place] [phone] Cheesemaker Helper: Vijay Larios MD Hemoglobin (Bld) [Mass/Vol] 10.4 g/dL Low 11.9-15.1 [facility] Comment on above: Performed By: #### JATINDER JONES UAX #### [facility] [address] [place] [phone] Cheesemaker Helper: Vijay Larios MD Immature granulocytes/100 WBC (Bld) 0 % Normal 0 [facility] Comment on above: Performed By: #### JATINDER JONES UAX #### [employer] [address] [place] [address] 21055 Cheesemaker Helper: Vijay Larios MD Lymphocytes (Bld) [#/Vol] 1.42 10*3/uL Normal 1.10-3.70 [facility] Comment on above: Performed By: #### JATINDER JONES UAX #### [facility] [address] [place] [address] Cheesemaker Helper: Vijay Larios MD Lymphocytes/100 WBC (Bld) 32 % Normal 24-43 [facility] Comment on above: Performed By: #### JATINDER JONES UAX #### [facility] [address] [place] [address] 69762 Cheesemaker Helper: Vijay Larios MD MCH (RBC) [Entitic mass] 35.4 pg High 25.2-33.5 [facility] Comment on above: Performed By: #### JATINDER JONES UAX #### [facility] [address] [place] [address] 01875 Cheesemaker Helper: Vijay Larios MD MCHC (RBC) [Mass/Vol] 33.4 g/dL Normal 28.4-34.8 [facility] Comment on above: Performed By: #### JATINDER JONES UAX #### [facility] [address] [place] [address] 94475 Cheesemaker Helper: Vijay Larios MD MCV (RBC) [Entitic vol] 105.8 fL High 82.6-102.9 [facility] Comment on above: Performed By: #### JATINDER JONES UAX #### [facility] [address] [place] [address] 36482 Cheesemaker Helper: Vijay Larios MD Monocytes (Bld) [#/Vol] 0.28 10*3/uL Normal 0.10-1.20 [facility] Comment on above: Performed By: #### JATINDER JONES UAX #### [facility] [address] [place] [address] 48415 Cheesemaker Helper: Vijay Larios MD Monocytes/100 WBC (Bld) 6 % Normal 3-12 [facility] Comment on above: Performed By: #### JATINDER JONES UAX #### [facility] [address] [place] [address] 70782 Cheesemaker Helper: Vijay Larios MD Neutrophil (Seg) 61 % Normal 36-65 [facility] Comment on above: Performed By: #### JATINDER JONES UAX #### [address] [address] Cheesemaker Helper: Vijay Larios MD NRBC Automated 0.0 per 100 WBC Normal 0.0 [facility] Comment on above: Performed By: #### JATINDER JONES UAX #### [facility] [address] [place] [address] 39358 Cheesemaker Helper: Vijay Larios MD Platelet mean volume (Bld) [Entitic vol] 8.9 fL Normal 8.1-13.5 [facility] Comment on above: Performed By: #### JATINDER JONES UAX #### [address] [address] Cheesemaker Helper: Vijay Larios MD Platelets (Bld) [#/Vol] 100 10*3/uL Low 138-453 [facility] Comment on above: Performed By: #### JATINDER JONES UAX #### [facility] [address] [place] [address] 72540 Cheesemaker Helper: Vijay Larios MD RBC (Bld) [#/Vol] 2.94 10*6/uL Low 3.95-5.11 [facility] Comment on above: Performed By: #### JATINDER JONES UAX #### [facility] [address] [place] [address] 29262 Cheesemaker Helper: Vijay Larios MD RBC morphology finding Nom (Bld) ANISOCYTOSIS PRESENT Normal [facility] Comment on above: Result Comment: MACR OCYTOSIS PRESENT Performed By: #### JATINDER JONES, UAX #### [facility] [address] [place] [address] 88058 Cheesemaker Helper: Vijay Larios MD WBC (Bld) [#/Vol] 4.4 10*3/uL Normal 3.5-11.3 [facility] Comment on above: Performed By: #### D AU CRISTINAO, UAX #### [place] [address] Cheesemaker Helper: Vijay Larios MD Abs. Basophil 0.03 k/uL Normal 0.00-0.20 [facility] Comment on above: Performed By: #### A LCB, MG, ACET, CP, CDP, TRIC, SALI, HCG #### [place] [address] Cheesemaker Helper: Vijay Larios MD Abs. Eosinophil <0.03 Normal 0.00-0.44 [facility] Comment on above: Performed By: #### A LCB, MG, ACET, CP, CDP, TRIC, SALI, HCG #### [place] [address] Cheesemaker Helper: Vijay Larios MD Abs.Imm.Granulocyte <0.03 Normal 0.00-0.30 [facility] Comment on above: Performed By: #### A LCB, MG, ACET, CP, CDP, TRIC, SALI, HCG #### [place] [address] Cheesemaker Helper: Vijay Larios MD Abs.Neutrophil (Seg) 3.24 k/uL Normal 1.50-8.10 [facility] Comment on above: Performed By: #### A LCB, MG, ACET, CP, CDP, TRIC, SALI, HCG #### [place] [address] Cheesemaker Helper: Vijay Larios MD Basophils/100 WBC (Bld) 1 % Normal 0-2 [facility] Comment on above: Performed By: #### A LCB, MG, ACET, CP, CDP, TRIC, SALI, HCG #### [address] [address] Cheesemaker Helper: Vijay Larios MD Eosinophils/100 WBC (Bld) 0 % Low 1-4 [facility] Comment on above: Performed By: #### A LCB, MG, ACET, CP, CDP, TRIC, SALI, HCG #### [address] [address] Cheesemaker Helper: Vijay Larios MD Erythrocyte distribution width (RBC) [Ratio] 14.8 % High 11.8-14.4 [facility] Comment on above: Performed By: #### A LCB, MG, ACET, CP, CDP, TRIC, SALI, HCG #### [address] [address] Cheesemaker Helper: Vijay Larios MD Hematocrit (Bld) [Volume fraction] 43.7 % Normal 36.3-47.1 [facility] Comment on above: Performed By: #### A LCB, MG, ACET, CP, CDP, TRIC, SALI, HCG #### [address] [address] Cheesemaker Helper: Vijay Larios MD Hemoglobin (Bld) [Mass/Vol] 14.4 g/dL Normal 11.9-15.1 [facility] Comment on above: Performed By: #### A LCB, MG, ACET, CP, CDP, TRIC, SALI, HCG #### [address] [address] Cheesemaker Helper: Vijay Larios MD Immature granulocytes/100 WBC (Bld) 0 % Normal 0 [facility] Comment on above: Performed By: #### A LCB, MG, ACET, CP, CDP, TRIC, SALI, HCG #### [address] [phone] Cheesemaker Helper: Vijay Larios MD Lymphocytes (Bld) [#/Vol] 1.26 10*3/uL Normal 1.10-3.70 [facility] Comment on above: Performed By: #### A LCB, MG, ACET, CP, CDP, TRIC, SALI, HCG #### [address] [phone] Cheesemaker Helper: Vijay Larios MD Lymphocytes/100 WBC (Bld) 27 % Normal 24-43 [facility] Comment on above: Performed By: #### A LCB, MG, ACET, CP, CDP, TRIC, SALI, HCG #### [place] [address] Cheesemaker Helper: Vijay Larios MD MCH (RBC) [Entitic mass] 35.3 pg High 25.2-33.5 [facility] Comment on above: Performed By: #### A LCB, MG, ACET, CP, CDP, TRIC, SALI, HCG #### [place] [address] Cheesemaker Helper: Vijay Larios MD MCHC (RBC) [Mass/Vol] 33.0 g/dL Normal 28.4-34.8 [facility] Comment on above: Performed By: #### A LCB, MG, ACET, CP, CDP, TRIC, SALI, HCG #### [place] [address] Cheesemaker Helper: Vijay Larios MD MCV (RBC) [Entitic vol] 107.1 fL High 82.6-102.9 [facility] Comment on above: Performed By: #### A LCB, MG, ACET, CP, CDP, TRIC, SALI, HCG #### [place] [address] Cheesemaker Helper: Vijay Larios MD Monocytes (Bld) [#/Vol] 0.19 10*3/uL Normal 0.10-1.20 [facility] Comment on above: Performed By: #### A LCB, MG, ACET, CP, CDP, TRIC, SALI, HCG #### [address] [address] Cheesemaker Helper: Vijay Larios MD Monocytes/100 WBC (Bld) 4 % Normal 3-12 [facility] Comment on above: Performed By: #### A LCB, MG, ACET, CP, CDP, TRIC, SALI, HCG #### [address] [address] Cheesemaker Helper: Vijay Larios MD Neutrophil (Seg) 68 % High 36-65 [facility] Comment on above: Performed By: #### A LCB, MG, ACET, CP, CDP, TRIC, SALI, HCG #### [address] [address] Cheesemaker Helper: Vijay Larios MD NRBC Automated 0.0 per 100 WBC Normal 0.0 [facility] Comment on above: Performed By: #### A LCB, MG, ACET, CP, CDP, TRIC, SALI, HCG #### [address] [address] Cheesemaker Helper: Vijay Larios MD Platelet mean volume (Bld) [Entitic vol] 9.6 fL Normal 8.1-13.5 [facility] Comment on above: Performed By: #### A LCB, MG, ACET, CP, CDP, TRIC, SALI, HCG #### [address] [address] Cheesemaker Helper: Vijay Larios MD Platelets (Bld) [#/Vol] 150 10*3/uL Normal 138-453 [facility] Comment on above: Performed By: #### A LCB, MG, ACET, CP, CDP, TRIC, SALI, HCG #### [address] [address] Cheesemaker Helper: Vijay Larios MD RBC (Bld) [#/Vol] 4.08 10*6/uL Normal 3.95-5.11 [facility] Comment on above: Performed By: #### A LCB, MG, ACET, CP, CDP, TRIC, SALI, HCG #### [email or web address] [place] [address] Cheesemaker Helper: Vijay Larios MD RBC morphology finding Nom (Bld) ANISOCYTOSIS PRESENT Normal [facility] Comment on above: Result Comment: MACR OCYTOSIS PRESENT Performed By: #### A LCB, MG, ACET, CP, CDP, TRIC, SALI, HCG #### [facility] [address] [place] [address] 125[address] Cheesemaker Helper: Vijay Larios MD WBC (Bld) [#/Vol] 4.8 10*3/uL Normal 3.5-11.3 [facility] Comment on above: Performed By: #### A LCB, MG, ACET, CP, CDP, TRIC, SALI, HCG #### [facility] [address] [place] [address] Cheesemaker Helper: Vijay Larios MD Calcium, Ionicon 01-13-2023 Calcium [Moles/Vol] 1.04 mmol/L Low 1.13-1.33 [facility] Comment on above: Performed By: #### JATINDER JONES UAX #### [facility] [address] [place] [address] 7[address] Cheesemaker Helper: Vijay Larios MD Calcium, Ionizedon 3 Calcium.ionized (Bld) [Moles/Vol] 1.04 mmol/L Low 1.13 - 1.33 mmol/L [facility] Interpretation and review of laboratory results Abnormal [facility] Ceruloplasminon 01-13-2023 Ceruloplasmin 19 mg/dL Normal 16-45 [facility] Comment on above: Performed By: #### JATINDER JONES UAX #### [facility] [address] [place] [address] 7[address] Cheesemaker Helper: Vijay Larios MD Ceruloplasmin [Mass/Vol] 19 mg/dL 16 - 45 mg/dL [facility] Metabolic Pr/rfx MGon 0 - Anion gap [Moles/Vol] 21 mmol/L High 9-17 [facility] Comment on above: Performed By: #### JATINDER JONES UAX #### [facility] [address] [place] [address] 479[address] Cheesemaker Helper: Vijay Larios MD Sodium [Moles/Vol] 133 mmol/L Low 135-144 [facility] Comment on above: Performed By: #### JATINDER JONES UAX #### [facility] [address] [place] [address] Cheesemaker Helper: Vijay Larios MD Albumin [Mass/Vol] 3.1 g/dL Low 3.5-5.2 [facility] Comment on above: Performed By: #### JATINDER JONES UAX #### [facility] [address] [place] [address] Cheesemaker Helper: Vijay Larios MD Albumin/Glob Ratio 1.1 Normal 1.0-2.5 [facility] Comment on above: Performed By: #### JATINDER JONES UAX #### [facility] [address] [place] [address] Cheesemaker Helper: Vijay Larios MD Alkaline Phos 308 U/L High 35-104 [facility] Comment on above: Performed By: #### JATINDER JONES UAX #### [facility] [address] [place] [address] Cheesemaker Helper: Vijay Larios MD ALT [Catalytic activity/Vol] 322 U/L High 5-33 [facility] Comment on above: Performed By: #### JATINDER JONES UAX #### [facility] [address] [place] [address] Cheesemaker Helper: Vijay Larios MD AST [Catalytic activity/Vol] 655 U/L High <32 [facility] Comment on above: Performed By: #### JATINDER JONES UAX #### [facility] [address] [place] [address] Cheesemaker Helper: Vijay Larios MD Bilirubin [Mass/Vol] 1.5 mg/dL High 0.3-1.2 [facility] Comment on above: Performed By: #### JATINDER JONES UAX #### [facility] [address] [place] [address] Cheesemaker Helper: Vijay Larios MD Calcium [Mass/Vol] 7.5 mg/dL Low 8.6-10.4 [facility] Comment on above: Performed By: #### JATINDER JONES UAX #### [facility] [address] [place] [address] Cheesemaker Helper: Vijay Larios MD Chloride [Moles/Vol] 97 mmol/L Low 98-107 [facility] Comment on above: Performed By: #### JATINDER JONES UAX #### [facility] [address] [place] [address] Cheesemaker Helper: Vijay Larios MD CO2 [Moles/Vol] 15 mmol/L Low 20-31 [facility] Comment on above: Performed By: #### JATINDER JONES UAX #### [facility] [address] [place] [address] Cheesemaker Helper: Vijay Larios MD Creatinine [Mass/Vol] 0.45 mg/dL Low 0.50-0.90 [facility] Comment on above: Performed By: #### JATINDER JONES UAX #### [employer] [address] [place] [address] 8[address] Cheesemaker Helper: Vijay Larios MD GFR/1.73 sq M.predicted among non-blacks MDRD (S/P/Bld) [Vol rate/Area] mL/min/{1.73_m2} Normal >60 [facility] Comment on above: Result Comment: These results are not intended for use in patients <18 years of age. eGFR results are calculated without a race factor using the 2020 CKD-EPI equation. Careful clinical correlation is recommended, particularly when comparing to results calculated using previous equations. The CKD-EPI equation is less accurate in patients with extremes of muscle mass, extra-renal metabolism of creatine, excessive creatine ingestion, or following therapy that affects renal tubular secretion. Performed By: #### JATINDRE JONES UAX #### [facility] [address] [place] [address] Cheesemaker Helper: Vijay Larios MD Glucose [Mass/Vol] 123 mg/dL High 70-99 [facility] Comment on above: Performed By: #### JATINDER JONES UAX #### [facility] [address] [place] [address] Cheesemaker Helper: Vijay Larios MD Potassium [Moles/Vol] 4.2 mmol/L Normal 3.7-5.3 [facility] Comment on above: Performed By: #### JATINDER JONES UAX #### [employer] [address] [place] [address] Cheesemaker Helper: Vijay Larios MD Protein [Mass/Vol] 6.0 g/dL Low 6.4-8.3 [facility] Comment on above: Performed By: #### JATINDER JONES UAX #### [facility] [address] [place] [address] Cheesemaker Helper: Vijay Larios MD Urea nitrogen [Mass/Vol] 7 mg/dL Normal 6-20 [facility] Comment on above: Performed By: #### D JATINDER HALL UAX #### [facility] [address] [place] [address] Cheesemaker Helper: Vijay Larios MD Comp Metabolic Profon 2022 AST [Catalytic activity/Vol] 988 U/L High <32 [facility] Comment on above: Performed By: #### JATINDER JONES UAX #### [facility] [place] [address] Cheesemaker Helper: Vijay Larios MD Creatinine [Mass/Vol] 0.44 mg/dL Low 0.50-0.90 [facility] Comment on above: Result Comment: ICTE ARIANA SPECIMEN Performed By: #### JATINDER JONES UAX #### [facility] [address] [place] [address] Cheesemaker Helper: Vijay Larios MD GFR/1.73 sq M.predicted among non-blacks MDRD (S/P/Bld) [Vol rate/Area] mL/min/{1.73_m2} Normal >60 [facility] Comment on above: Result Comment: These results are not intended for use in patients <18 years of age. eGFR results are calculated without a race factor using the 2020 CKD-EPI equation. Careful clinical correlation is recommended, particularly when comparing to results calculated using previous equations. The CKD-EPI equation is less accurate in patients with extremes of muscle mass, extra-renal metabolism of creatine, excessive creatine ingestion, or following therapy that affects renal tubular secretion. Performed By: #### JATINDER JONES UAX #### [facility] [address] [place] [address] Cheesemaker Helper: Vijay Larios MD Albumin [Mass/Vol] 4.5 g/dL Normal 3.5-5.2 [facility] Comment on above: Performed By: #### JATINDER JONES UAX #### [facility] [address] [place] [address] Cheesemaker Helper: Vijay Larios MD Albumin/Glob Ratio 1.2 Normal 1.0-2.5 [facility] Comment on above: Performed By: #### JATINDER JONES UAX #### [facility] [address] [place] [address] Cheesemaker Helper: Vijay Larios MD Alkaline Phos 451 U/L High 35-104 [facility] Comment on above: Performed By: #### JATINDER JONES UAX #### [facility] [address] [place] [address] Cheesemaker Helper: Vijay Larios MD ALT [Catalytic activity/Vol] 495 U/L High 5-33 [facility] Comment on above: Performed By: #### JATINDER JONES UAX #### [facility] [address] [place] [address] Cheesemaker Helper: Vijay Larios MD Anion gap [Moles/Vol] 30 mmol/L High 9-17 [facility] Comment on above: Performed By: #### JATINDER JONES UAX #### [facility] [address] [place] [address] Cheesemaker Helper: Vijay Larios MD Bilirubin [Mass/Vol] 2.6 mg/dL High 0.3-1.2 [facility] Comment on above: Performed By: #### JATINDER JONES UAX #### [facility] [address] [place] [address] Cheesemaker Helper: Vijay Larios MD Calcium [Mass/Vol] 8.7 mg/dL Normal 8.6-10.4 [facility] Comment on above: Performed By: #### JATINDER JONES UAX #### [facility] [address] [place] [address] Cheesemaker Helper: Vijay Larios MD Chloride [Moles/Vol] 96 mmol/L Low 98-107 [facility] Comment on above: Performed By: #### JATINDER JONES UAX #### [facility] [address] [place] [address] Cheesemaker Helper: Vijay Larios MD CO2 [Moles/Vol] 12 mmol/L Low 20-31 [facility] Comment on above: Performed By: #### JATINDER JONES UAX #### [facility] [address] [place] [address] Cheesemaker Helper: Vijay Larios MD Glucose [Mass/Vol] 59 mg/dL Low 70-99 [facility] Comment on above: Performed By: #### JATINDER JONES UAX #### [facility] [address] [place] [address] Cheesemaker Helper: Vijay Larios MD Potassium [Moles/Vol] 3.9 mmol/L Normal 3.7-5.3 [facility] Comment on above: Performed By: #### JATINDER JONES UAX #### [facility] [address] [place] [address] Cheesemaker Helper: Vijay Larios MD Protein [Mass/Vol] 8.3 g/dL Normal 6.4-8.3 [facility] Comment on above: Performed By: #### JATINDER JONES UAX #### [facility] [address] [place] [address] Cheesemaker Helper: Vijay Larios MD Sodium [Moles/Vol] 138 mmol/L Normal 135-144 [facility] Comment on above: Performed By: #### JATINDER JONES UAX #### [facility] [address] [place] [address] Cheesemaker Helper: Vijay Larios MD Urea nitrogen [Mass/Vol] 8 mg/dL Normal 6-20 [facility] Comment on above: Performed By: #### D AU, UMZAIDO, UAX #### [email or web address] [address] [place] [address] Cheesemaker Helper: Vijay Larios MD Comprehensive Metabolic Pane l w/ Reflex to MGon 01-13-2023 Albumin [Mass/Vol] 3.1 g/dL Low 3.5 - 5.2 g/dL [facility] Albumin/Globulin [Mass ratio] 1.1 {ratio} 1.0 - 2.5 [facility] ALP [Catalytic activity/Vol] 308 U/L High 35 - 104 U/L [facility] ALT [Catalytic activity/Vol] 322 U/L High 5 - 33 U/L [facility] Anion gap [Moles/Vol] 21 mmol/L High 9 - 17 mmol/L [facility] AST [Catalytic activity/Vol] 655 U/L High NINF - 32 U/L [facility] Bilirubin [Mass/Vol] 1.5 mg/dL High 0.3 - 1 .2 mg/dL [facility] Calcium [Mass/Vol] 7.5 mg/dL Low 8.6 - 10. 4 mg/dL [facility] Chloride [Moles/Vol] 97 mmol/L Low 98 - 10 7 mmol/L [facility] CO2 [Moles/Vol] 15 mmol/L Low 20 - 31 mmol/L [facility] Creatinine [Mass/Vol] 0.45 mg/dL Low 0.50 - 0.90 mg/dL [facility] GFR/1.73 sq M.predicted MDRD (S/P/Bld) [Vol rate/Area] - PINF [facility] Comment on above: These results are not intended for use in patients <18 years of age. eGFR results are calculated without a race factor using the 2020 CKD-EPI equation. Careful clinical correlation is recommended, particularly when comparing to results calculated using previous equations. The CKD-EPI equation is less accurate in patients with extremes of muscle mass, extra-renal metabolism of creatine, excessive creatine ingestion, or following therapy that affects renal tubular secretion. Glucose [Mass/Vol] 123 mg/dL High 70 - 99 mg/dL [facility] Interpretation and review of laboratory results Abnormal [facility] Potassium [Moles/Vol] 4.2 mmol/L 3.7 - 5.3 mmol/L [facility] Protein [Mass/Vol] 6.0 g/dL Low 6.4 - 8.3 g/dL [facility] Sodium [Moles/Vol] 133 mmol/L Low 135 - 144 mmol/L [facility] Urea nitrogen [Mass/Vol] 7 mg/dL 6 - 20 mg/dL [facility] DRUG SCREEN MULTI URINEon Amphetamine Screen, Ur Negative NEGATIVE [facility] Comment on above: (Positive cutoff 1000 ng/mL) Barbiturate Screen, Ur Positive Abnormal NEGATIVE [facility] Comment on above: (Positive cutoff 200 ng/mL) Benzodiazepine Screen, Urine Negative NEGATIVE [facility] Comment on above: (Positive cutoff 200 ng/mL) Cannabinoid Scrn, Ur Positive Abnormal NEGATIVE [facility] Comment on above: (Positive cutoff 50 ng/mL) Cocaine Metabolite, Urine Positive Abnormal NEGATIVE [facility] Comment on above: (Positive cutoff 300 ng/mL) Fentanyl, Ur Negative NEGATIVE [facility] Comment on above: (Positive cutoff 5 ng/ml) Interpretation and review of laboratory results Abnormal [facility] Methadone Screen, Urine Negative NEGATIVE [facility] Comment on above: (Positive cutoff 300 ng/mL) Opiates, Urine Negative NEGATIVE [facility] Comment on above: (Positive cutoff 300 ng/mL) Oxycodone Screen, Ur Negative [facility]IVE [facility] Comment on above: (Positive cutoff 100 ng/mL) Phencyclidine, Urine Negative NEGATIVE [facility] Comment on above: (Positive cutoff 25 ng/mL) Test Information Assay provides medic al screening only. The absence of expected drug(s) and/or metabolite(s) may indicate diluted or adulterated urine, limitations of testing or timing of collection. [facility] Comment on above: Testing for legal pu rposes should be confirmed by another method. To request confirmation of test result, please call the lab within 7 days of sample submission. [facility] Drug Scr, Abuse, Uron 2022 Amphetamine(s),Ur Negative Normal NEG [facility] Comment on above: Result Comment: (Positive cutoff 1000 ng/mL) Performed By: #### JATINDER JONES, UAX #### [facility] [address] [place] [address] Cheesemaker Helper: Vijay Larios MD Barbiturate(s),Ur Positive Abnormal NEG [facility] Comment on above: Result Comment: (Positive cutoff 200 ng/mL) Performed By: #### JATINDER JONES, UAX #### [facility] [address] [place] [address] Cheesemaker Helper: Vijay Larios MD Benzodiazepine(s) Negative Normal NEG [facility] Comment on above: Result Comment: (Positive cutoff 200 ng/mL) Performed By: #### JATINDER JONES, UAX #### [facility] [address] [place] [address] Cheesemaker Helper: Vijay Larios MD Cannabinoid(s),Ur Positive Abnormal NEG [facility] Comment on above: Result Comment: (Positive cutoff 50 ng/mL) Performed By: #### CRISTINA JONESO, UAX #### [facility] [address] [place] [address] Cheesemaker Helper: Vijay Larios MD Cocaine Metabolite Positive Abnormal NEG [facility] Comment on above: Result Comment: (Positive cutoff 300 ng/mL) Performed By: #### JATINDER JONES, UAX #### [facility] [address] [place] [address] Cheesemaker Helper: Vijay Larios MD Fentanyl, Urine Negative Normal NEG [facility] Comment on above: Result Comment: (Positive cutoff 5 ng/ml) Performed By: #### CRISTINA JONESO, UAX #### [facility] [facility] [address] [place] [address] [phone] Cheesemaker Helper: Vijay Larios MD Interpretive Info Assay provides medic al screening only. The absence of expected drug(s) and/or Normal [facility] Comment on above: Result Comment: meta bolite(s) may indicate diluted or adulterated urine, limitations of testing or timing of collection. Testing for legal purposes should be confirmed by another method. To request confirmation of test result, please call the lab within 7 days of sample submission. Performed By: #### JATINDER JONES UAX #### [facility] [address] [place] [address] [phone] Cheesemaker Helper: Vijay Larios MD Methadone Ql (U) Negative Normal NEG [facility] Comment on above: Result Comment: (Positive cutoff 300 ng/mL) Performed By: #### JATINDER JONES UAX #### [facility] [address] [place] [address] [phone] Cheesemaker Helper: Vijay Larios MD Opiate(s), Ur Negative Normal NEG [facility] Comment on above: Result Comment: (Positive cutoff 300 ng/mL) Performed By: #### JATINDER JONES UAX #### [facility] [address] [place] [address] [phone] Cheesemaker Helper: Vijay Larios MD Oxycodone, Urine Negative Normal NEG [facility] Comment on above: Result Comment: (Positive cutoff 100 ng/mL) Performed By: #### JATINDER JONES UAX #### [facility] [address] [place] [address] [phone] Cheesemaker Helper: Vijay Larios MD Phencyclidine, Ur Negative Normal NEG [facility] Comment on above: Result Comment: (Positive cutoff 25 ng/mL) Performed By: #### JATINDER JONES UAX #### [facility] [address] [place] [address] [phone] Cheesemaker Helper: Vijay Larios MD EKG 12 LeadOrdered By: Marlyn Madrid on 01-13-2023 Atrial Rate 67 BPM [employer] Work Phone: P [place] 57 degrees [employer] Work Phone: P-R Interval 134 ms [employer] Work Phone: Q-T Interval 466 ms [employer] Work Phone: QRS Duration 86 ms [employer] Work Phone: QTc Calculation (Bazett) 492 ms [employer] Work Phone: [phone] R [place] 46 degrees [employer] Work Phone: [phone] T [place] 57 degrees [employer] Work Phone: Ventricular Rate 67 BPM [employer] Work Phone: [employer] Work Phone: EKG 12 Leadon 01-13-2023 Normal sinus rhythm Prolonged QT Abnormal ECG When compared with ECG of 21-SEP-2022 14:22, No significant change was found [facility] Marlyn Melvin MD - 01/13/2023 Normal sinus rhythm Prolonged QT Abnormal ECG When compared with ECG of 21-SEP-2022 14:22, No significant change was found [employer] Work Phone: Ethanolon 01-13-2023 Ethanol [Mass/Vol] 36 mg/dL High NINF - 10 mg/dL [employer] Ethanol percent 0.036 % High NINF - 0.010 % [employer] Alcoholon 01-13-2023 Ethanol [Mass/Vol] 36 mg/dL High <10 [facility] Comment on above: Performed By: #### D JATINDER HALL UAX #### [employer] [facility] [place], [place] [phone] Cheesemaker Helper: Vijay Larios MD Ethanol percent 0.036 % High <0.010 [facility] Comment on above: Performed By: #### JATINDER JONES UAX #### [facility] [address] [place] [address] Cheesemaker Helper: Vijay Larios MD Ethanol [Mass/Vol] 240 mg/dL High <10 [facility] Comment on above: Performed By: #### JATINDER JONES, UAX #### [facility] [address] [place] [address] Cheesemaker Helper: Vijay Larios MD Ethanol percent 0.240 % High <0.010 [facility] Comment on above: Performed By: #### JATINDER JONES UAX #### [facility] [address] [place] [address] [phone] Cheesemaker Helper: Vijay Larios MD Ferritinon 01-13-2023 Ferritin [Mass/Vol] 884 ng/mL High 13-150 [facility] Comment on above: Performed By: #### JATINDER JONES UAX #### [facility] [address] [place] [address] [phone] Cheesemaker Helper: Vijay Larios MD Ferritin [Mass/Vol] 884 ng/mL High 13 - 150 ng/mL [facility] HCG Screen, Bloodon 01-13-20 23 HCG Screen, Blood Negative Normal NEG [facility] Comment on above: Result Comment: Spec imens with hCG levels near the threshold of the test (25 mIU/mL) may give a negative or indeterminate result. In such cases, another test should be performed with a new specimen in 48-72 hours. If early is suspected clinically in this setting, correlation with quantitative serum b-hCG level is suggested. [employer] has confirmed the use of plasma for this test. This has not been cleared or approved by the U.S. Food and Drug Administration. The FDA has determined that such clearance is not necessary. Performed By: #### JATINDER JONES UAX #### [facility] [address] [place], [place] [phone] Cheesemaker Helper: Vijay Larios MD Hemoglobin A1Con 8 Glucose [Mass/Vol] 100 mg/dL Normal [facility] Comment on above: Result Comment: The ADA and AACC recommend providing the estimated average glucose result to permit better patient understanding of their HBA1c result. Performed By: #### JATINDER JONES UAX #### [facility] [address] [place] [address] [phone] Cheesemaker Helper: Vijay Larios MD HbA1c (Bld) [Mass fraction] 5.1 % Normal 4.0-6.0 [facility] Comment on above: Performed By: #### JATINDER JONES UAX #### [facility] [address] [place] [address] [phone] Cheesemaker Helper: Vijay Larios MD Average glucose Estimated from glycated hemoglobin (Bld) [Mass/Vol] 100 mg/dL [facility] Comment on above: The ADA and AACC rec ommend providing the estimated average glucose result to permit better patient understanding of their HBA1c result. HbA1c (Bld) [Mass fraction] 5.1 % 4.0 - 6.0 % [facility] [place] [facility] Hepatitis Acute Calixto 01-13 Hep A Ab,IgM Non-Reactive Normal NR [facility] Comment on above: Performed By: #### JATINDER JONES UAX #### [facility] [address] [place] [address] [phone] Cheesemaker Helper: Vijay Larios MD Hep B Core Ab,IgM Non-Reactive Normal NR [facility] Comment on above: Performed By: #### JATINDER JONES UAX #### [email or web address] [address] [place] [address] [phone] Cheesemaker Helper: Vijay Larios MD Hep B Surf Ag Non-Reactive Normal NR [facility] Comment on above: Performed By: #### JATINDER JONES UAX #### [email or web address] [address] [place] [address], [place] [phone] Cheesemaker Helper: Vijay Larios MD Hep C Ab Reactive Abnormal NR [facility] Comment on above: Result Comment: The hepatitis C procedure used in our laboratory is a Chemiluminescent test specific for three recombinant HCV antigens. A negative anti-HCV result indicates that the antibodies to hepatitis C virus are not present at this time. Individuals with reactive anti-HCV should be considered infected and infectious until proven otherwise. Confirmation of all equivocal or reactive results is recommended by ordering HCV RNA by PCR. Results reported to the appropriate Health Department Performed By: #### JATINDER JONES UAX #### [employer] [facility] [place] [address] Cheesemaker Helper: Vijay Larios MD Hepatitis Panel, Acuteon HAV IgM Ql (S) Non-Reactive NONREACTIVE [facility] HBV core IgM Ql (S) Non-Reactive NONREACTIVE [facility] HBV surface Ag Ql (S) Non-Reactive NONREACTIVE [facility] HCV Ab Ql (S) Reactive Abnormal NONREACTIVE [facility] Comment on above: The hepatitis C procedure used in our laboratory is a Chemiluminescent test specific for three recombinant HCV antigens. A negative anti-HCV result indicates that the antibodies to hepatitis C virus are not present at this time. Individuals with reactive anti-HCV should be considered infected and infectious until proven otherwise. Confirmation of all equivocal or reactive results is recommended by ordering HCV RNA by PCR. Results reported to the appropriate Health Department Interpretation and review of laboratory results Abnormal [facility] Lactate Dehydrogenaseon 12-22 LDH [Catalytic activity/Vol] 345 U/L High 135-214 [facility] Comment on above: Performed By: #### JATINDER JONES UAX #### [employer] [address] [place] [address] [phone] Cheesemaker Helper: Vijay Larios MD Cholesterol in LDL [Mass/Vol] 345 U/L High 135 - 214 U/L [facility] Interpretation and review of laboratory results Abnormal [facility] Lactic Acidon 01-13-2023 Lactic Acid,Whole Bl 2.1 mmol/L Normal 0.7-2.1 [facility] Comment on above: Performed By: #### JATINDER JONES UAX #### [facility] [address] [place] [address] [phone] Cheesemaker Helper: Vijay Larios MD Lactic Acid, Whole Blood 2.1 mmol/L 0.7 - 2.1 mmol/L [facility] Lipid Panelon 01-13-2023 Cholesterol [Mass/Vol] 177 mg/dL NINF - 200 mg/dL [facility] Comment on above: Cholesterol Guidelines: <200 Desirable 200-240 Borderline >240 Undesirable Cholesterol in HDL [Mass/Vol] 46 mg/dL 40 - PINF mg/dL [facility] Comment on above: HDL Guidelines: <40 Undesirable 40-59 Borderline >59 Desirable Cholesterol in LDL [Mass/Vol] 87 mg/dL 0 - 130 mg/dL [facility] Comment on above: LDL Guidelines: <100 Desirable 100-129 Near to/above Desirable 130-159 Borderline >159 Undesirable Direct (measured) LDL and calculated LDL are not interchangeable tests. Cholesterol.total/Chol esterol in HDL [Mass ratio] 3.8 {ratio} NINF - 5 [facility] Triglyceride [Mass/Vol] 222 mg/dL High BANNERF - 150 mg/dL [facility] Comment on above: Triglyceride Guidelines: <150 Desirable 150-199 Borderline 200-499 High >499 Very high Based on AHA Guidelines for fasting triglyceride, August 2012. Lipid Profileon 01-13-2023 Cholesterol [Mass/Vol] 177 mg/dL Normal <200 [facility] Comment on above: Result Comment: Cholesterol Guidelines: <200 Desirable 200-240 Borderline >240 Undesirable Performed By: #### JATINDER JONES UAX #### [facility] [address] [place] [address] [phone] Cheesemaker Helper: Vijay Larios MD Cholesterol in HDL [Mass/Vol] 46 mg/dL Normal >40 [facility] Comment on above: Result Comment: HDL Guidelines: <40 Undesirable 40-59 Borderline >59 Desirable Performed By: #### JATINDER JONES UAX #### [facility] [address] [place] [address] Cheesemaker Helper: Vijay Larios MD Cholesterol in LDL [Mass/Vol] 87 mg/dL Normal 0-130 [facility] Comment on above: Result Comment: LDL Guidelines: <100 Desirable 100-129 Near to/above Desirable 130-159 Borderline >159 Undesirable Direct (measured) LDL and calculated LDL are not interchangeable tests. Performed By: #### JATINDER JONES UAX #### [facility] [address] [place] [address] Cheesemaker Helper: Vijay Larios MD Cholesterol.total/Chol esterol in HDL [Mass ratio] 3.8 {ratio} Normal <5 [facility] Comment on above: Performed By: #### JATINDER JONES UAX #### [employer] [address] [place] [address] [phone] Cheesemaker Helper: Vijay Larios MD Triglyceride [Mass/Vol] 222 mg/dL High <150 [facility] Comment on above: Result Comment: Triglyceride Guidelines: <150 Desirable 150-199 Borderline 200-499 High >499 Very high Based on AHA Guidelines for fasting triglyceride, August 2012. Performed By: #### JATINDER JONES UAX #### [employer] [address] [place] [address] [phone] Cheesemaker Helper: Vijay Larios MD Magnesiumon 01-13-2023 Magnesium [Mass/Vol] 1.8 mg/dL Normal 1.6-2.6 [facility] Comment on above: Performed By: #### JATINDER JONES UAX #### [facility] [address] [place] [address] Cheesemaker Helper: Vijay Larios MD Magnesium [Mass/Vol] 1.8 mg/dL 1.6 - 2 .6 mg/dL [facility] Magnesium [Mass/Vol] 2.0 mg/dL Normal 1.6-2.6 [facility] Comment on above: Performed By: #### D JATINDER HALL UAX #### [email or web address] [address] [place] [address] Cheesemaker Helper: Vijay Larios MD Microscopic Urinalysison Bacteria, UA FEW Abnormal None [facility] Casts UA 0 TO 2 HYALINE Reference range defined for non-centrifuged specimen. [facility] Epithelial Cells UA 0 TO 2 [facility] Interpretation and review of laboratory results Abnormal [facility] RBC clumps Auto (Urine sed) [#/Area] None [facility] Comment on above: Reference range defi abhishek for non-centrifuged specimen. WBC, UA 2 TO 5 [facility] No Panel Informationon 01-13 [facility] Interpretation and review of laboratory results Abnormal [facility] Osmolalityon 01-13-2023 Osmolality [Osmolality] 295 mosm/kg Normal 275-295 [facility] Comment on above: Performed By: #### D JATINDER HALL UAX #### [employer] [address] [place] [address] [phone] Cheesemaker Helper: Vijay Larios MD Serum Osmolality 295 [facility] POC Glucose Fingerstickon Glucose [Mass/Vol] 140 mg/dL High 65 - 105 mg/dL [facility] Interpretation and review of laboratory results Abnormal [facility] Glucose [Mass/Vol] 196 mg/dL High 65 - 105 mg/dL [facility] Interpretation and review of laboratory results Abnormal [facility] Glucose [Mass/Vol] 116 mg/dL High 65 - 105 mg/dL [facility] Interpretation and review of laboratory results Abnormal [facility] Glucose [Mass/Vol] 169 mg/dL High 65 - 105 mg/dL [facility] Interpretation and review of laboratory results Abnormal [facility] Glucose [Mass/Vol] 80 mg/dL 65 - 105 mg/dL [facility] Glucose [Mass/Vol] 61 mg/dL Low 65 - 105 mg/dL [facility] Interpretation and review of laboratory results Abnormal [facility] PTon 01-13-2023 INR Coag (PPP) [Relative time] 1.1 {INR} Normal [facility] Comment on above: Result Comment: Therapeutic Range: Moderate Anticoagulant Intensity: INR = 2.0-3.0 High Anticoagulant Intensity: INR = 2.5-3.5 Performed By: #### JATINDER JONES UAX #### [employer] [address] [place] [address] Cheesemaker Helper: Vijay Larios MD PT Coag (PPP) [Time] 11.6 s Normal 9.1-12.3 [facility] Comment on above: Performed By: #### JATINDER JONES UAX #### [email or web address] [address] [place] [address] [phone] Cheesemaker Helper: Vijay Larios MD Phosphoruson 01-13-2023 Phosphate [Mass/Vol] 1.9 mg/dL Low 2.6 - 4 .5 mg/dL [facility] Phosphorus, Inorg.on 023 Phosphorus, Inorg. 1.9 mg/dL Low 2.6-4.5 [facility] Comment on above: Performed By: #### JATINDER JONES UAX #### [employer] [address] [place] [address] [phone] Cheesemaker Helper: Vijay Larios MD Protime-INRon 01-13-2023 INR Coag (PPP) [Relative time] 1.1 {INR} [facility] Comment on above: Therapeutic Range: Moderate Anticoagulant Intensity: INR = 2.0-3.0 High Anticoagulant Intensity: INR = 2.5-3.5 PT Coag (PPP) [Time] 11.6 s [facility] Salicylateon 01-13-2023 Salicylate <1 Low 3-10 [facility] Comment on above: Performed By: #### JATINDER JONES UAX #### [employer] [address] [place] [address] [phone] Cheesemaker Helper: Vijay Larios MD TSHon 01-13-2023 TSH Qn 0.38 m[IU]/L [facility] Thyroid Stim. Horm.on 2022 Thyroid Stim. Horm. 0.38 uIU/mL Normal 0.30-5.00 [facility] Comment on above: Performed By: #### JATINDER JONES UAX #### [facility] [address] [place] [address] [phone] Cheesemaker Helper: Vijay Larios MD Toxic Tricyclic Sc,Blon 12-22 Toxic Tricyclic Sc,Bl Negative Normal NEG [facility] Comment on above: Performed By: #### JATINDER JONES UAX #### [facility] [address] [place] [address] [phone] Cheesemaker Helper: Vijay Larios MD UA w/Reflex Cultureon 2022 Bilirubin, SemiQt,Ur Negative Normal NEG [facility] Comment on above: Performed By: #### JATINDER JONES UAX #### [facility] [address] [place] [address] [phone] Cheesemaker Helper: Vijay Larios MD Blood, Urine Negative Normal NEG [facility] Comment on above: Performed By: #### JATINDER JONES UAX #### [facility] [address] [place] [address] [phone] Cheesemaker Helper: Vijay Larios MD Clarity (U) Clear Normal CLEAR [facility] Comment on above: Performed By: #### JATINDER JONES UAX #### [facility] [address] [place] [address] Cheesemaker Helper: Vijay Larios MD Color (U) Dark Yellow Abnormal YEL [facility] Comment on above: Performed By: #### JATINDER JONES, UAX #### [facility] [address] [place] [address] Cheesemaker Helper: Vijay Larios MD Glucose Ql (U) Negative Normal NEG [facility] Comment on above: Performed By: #### JATINDER JONES UAX #### [facility] [address] [place] [address] [phone] Cheesemaker Helper: Vijay Larios MD Ketones Ql (U) SMALL Abnormal NEG [facility] Comment on above: Performed By: #### JATINDER JONES UAX #### [facility] [address] [place] [address] [phone] Cheesemaker Helper: Vijay Larios MD Leukocyte esterase Test strip Ql (U) TRACE Abnormal NEG [facility] Comment on above: Performed By: #### JATINDER JONES UAX #### [facility] [address] [place] [address] [phone] Cheesemaker Helper: Vijay Larios MD Nitrite,Ur Positive Abnormal NEG [facility] Comment on above: Performed By: #### JATINDER JONES UAX #### [facility] [address] [place] [address] [phone] Cheesemaker Helper: Vijay Larios MD PH,Ur 6.0 Normal 5.0-8.0 [facility] Comment on above: Performed By: #### JATINDER JONES UAX #### [facility] [address] [place] [address] [phone] Cheesemaker Helper: Vijay Larios MD Protein Ql (U) Negative Normal NEG [facility] Comment on above: Performed By: #### CRISTINA JONESO, UAX #### [facility] [address] [place] [address] Cheesemaker Helper: Vijay Larios MD Spec. Lacey,Ur 1.013 Normal 1.005-1.030 [facility] Comment on above: Performed By: #### D RAFAEL CRISTINAO, UAX #### [facility] [address] [place] [address] Cheesemaker Helper: Vijay Larios MD Urobilinogen,Ur ELEVATED Abnormal NORM [facility] Comment on above: Performed By: #### Maddi HALL CRISTINAAnita, UAX #### [facility] [address] [place] [address] Cheesemaker Helper: Vijay Larios MD Urinalysis with Reflex to Cu ltureon 01-13-2023 Bilirubin Urine Negative NEGATIVE [facility] [employer]ter Color, UA Dark Yellow Abnormal Yellow [facility] Glucose Auto test strip (U) [Mass/Vol] Negative NEGATIVE [facility] [place] Interpretation and review of laboratory results Abnormal [facility] Ketones (U) [Mass/Vol] SMALL Abnormal NEGATIVE [facility] Leukocyte esterase Auto test strip Ql (U) TRACE Abnormal NEGATIVE [facility] [place] Nitrite Auto test strip Ql (U) Positive Abnormal NEGATIVE [facility] Protein (U) [Mass/Vol] 6.0 mg/dL 5.0 - 8.0 [facility] [facility] Protein (U) [Mass/Vol] Negative NEGATIVE [facility] [employer] [facility] Specific Lacey, UA 1.013 1.005 - 1.030 [facility] [employer] [facility] Turbidity UA Clear Clear [facility] [employer] [facility] Urine Hgb Negative NEGATIVE [facility] Urobilinogen, Urine ELEVATED Abnormal Normal [facility] Urinalysis,Microon 3 Bacteria FEW Abnormal NONE [facility] Comment on above: Performed By: #### D RAFAEL CRISTINAAnita, UAX #### [facility] [address] [place] [address] Cheesemaker Helper: Vijay Larios MD Casts 0 TO 2 HYALINE Normal 0-8 [facility] Comment on above: Result Comment: Refe rence range defined for non-centrifuged specimen. Performed By: #### JATINDER JONES, UAX #### [facility] [address] [place] [address] Cheesemaker Helper: Vijay Larios MD Epithelial cells LM Ql (Urine sed) 0 TO 2 Normal 0-5 [facility] Comment on above: Performed By: #### JATINDER JONES UAX #### [facility] [address] [place] [address] Cheesemaker Helper: Vijay Larios MD Urine RBC's None Normal 0-4 [facility] Comment on above: Result Comment: Refe rence range defined for non-centrifuged specimen. Performed By: #### JATINDER JONES UAX #### [facility] [address] [place] [address] Cheesemaker Helper: Vijay Larios MD Urine WBC's 2 TO 5 Normal 0-5 [facility] Comment on above: Performed By: #### JATINDER JNOES, UAX #### [facility] [address] [place] [address] Cheesemaker Helper: Vijay Larios MD XR CHEST PORTABLEon 01-13-20 23 XR CHEST PORTABLE EXAMINATION: ONE XRAY VIEW OF THE CHEST 01/12/2023 9:55 pm COMPARISON: None. HISTORY: ORDERING SYSTEM PROVIDED HISTORY: seizure TECHNOLOGIST PROVIDED HISTORY: seizure Reason for Exam: upr,seizure,stomach pain FINDINGS: Cardiomediastinal silhouette is normal in size. There is no pleural effusion or pneumothorax. There is no pulmonary consolidation. There is no acute osseous abnormality. IMPRESSION: No acute cardiopulmonary abnormality. Interpreted by: Karina Marin MD Signed by: Karina Marin MD 01/12/23 Final result Normal [facility] Acetaminophen Levelon 2022 Acetaminophen Level <5 Low 10 - 30 ug/mL [facility] CALCIUM, IONIC (POC)on 01-12 POC Ionized Calcium 0.94 mmol/L Low 1.15 - 1 .33 mmol/L [facility] POC Ionized Calcium 0.52 mmol/L Critically low 1.15 - 1.33 mmol/L [facility] CBC with Auto Differentialon 01-12-2023 Absolute Eos # [facility] Absolute Immature Granulocyte [facility] Absolute Lymph # 1.26 [facility] Absolute Hancock # 0.19 [facility] Basophils (Bld) [#/Vol] 0.03 10*3/uL [facility] Basophils/100 WBC (Bld) 1 % 0 - 2 % [facility] Eosinophils/100 WBC (Bld) 0 % Low 1 - 4 % [facility] Hematocrit (Bld) [Volume fraction] 43.7 % 36.3 - 47.1 % [facility] Hemoglobin (Bld) [Mass/Vol] 14.4 g/dL 11.9 - 15.1 g/dL [facility] Immature granulocytes/100 WBC (Bld) 0 % 0 [facility] Interpretation and review of laboratory results Abnormal [facility] Lymphocytes/100 WBC (Bld) 27 % 24 - 43 % [facility] MCH (RBC) [Entitic mass] 35.3 pg High 25.2 - 33.5 pg [facility] MCHC (RBC) [Mass/Vol] 33.0 g/dL 28.4 - 34.8 g/dL [facility] MCV (RBC) [Entitic vol] 107.1 fL High 82.6 - 102.9 fL [facility] Monocytes/100 WBC (Bld) 4 % 3 - 12 % [facility] NRBC Automated 0.0 0.0 per 100 WBC [facility] Platelet distribution width (Bld) [Ratio] 14.8 % High 11.8 - 14.4 % [facility] Platelet mean volume (Bld) [Entitic vol] 9.6 fL 8.1 - 13.5 fL [facility] Platelets (Bld) [#/Vol] 150 10*3/uL [facility] RBC (Bld) [#/Vol] 4.08 10*6/uL 3.95 - 5.1 1 m/uL [facility] RBC (Bld) [#/Vol] ANISOCYTOSIS PRESENT [facility] Comment on above: MACROCYTOSIS PRESENT Segmented neutrophils/100 WBC (Bld) 68 % High 36 - 65 % [facility] Segs Absolute 3.24 [facility] WBC (Bld) [#/Vol] 4.8 10*3/uL [facility] CMPon 01-12-2023 Albumin [Mass/Vol] 4.5 g/dL 3.5 - 5.2 g/dL [facility] Albumin/Globulin [Mass ratio] 1.2 {ratio} 1.0 - 2.5 [facility] ALP [Catalytic activity/Vol] 451 U/L High 35 - 104 U/L [facility] ALT [Catalytic activity/Vol] 495 U/L High 5 - 33 U/L [facility] Anion gap [Moles/Vol] 30 mmol/L High 9 - 17 mmol/L [facility] AST [Catalytic activity/Vol] 988 U/L High NINF - 32 U/L [facility] Bilirubin [Mass/Vol] 2.6 mg/dL High 0.3 - 1 .2 mg/dL [facility] Calcium [Mass/Vol] 8.7 mg/dL 8.6 - 10. 4 mg/dL [facility] Chloride [Moles/Vol] 96 mmol/L Low 98 - 10 7 mmol/L [facility] CO2 [Moles/Vol] 12 mmol/L Low 20 - 31 mmol/L [facility] Creatinine [Mass/Vol] 0.44 mg/dL Low 0.50 - 0.90 mg/dL [facility] Comment on above: ICTERIC SPECIMEN GFR/1.73 sq M.predicted MDRD (S/P/Bld) [Vol rate/Area] - PINF [facility] Comment on above: These results are not intended for use in patients <18 years of age. eGFR results are calculated without a race factor using the 2020 CKD-EPI equation. Careful clinical correlation is recommended, particularly when comparing to results calculated using previous equations. The CKD-EPI equation is less accurate in patients with extremes of muscle mass, extra-renal metabolism of creatine, excessive creatine ingestion, or following therapy that affects renal tubular secretion. Glucose [Mass/Vol] 59 mg/dL Low 70 - 99 mg/dL [employer] Interpretation and review of laboratory results Abnormal [facility] Potassium [Moles/Vol] 3.9 mmol/L 3.7 - 5.3 mmol/L [employer] [facility] Protein [Mass/Vol] 8.3 g/dL 6.4 - 8.3 g/dL [facility] Sodium [Moles/Vol] 138 mmol/L 135 - 144 mmol/L [facility] Urea nitrogen [Mass/Vol] 8 mg/dL 6 - 20 mg/dL [facility] Creatinine W/GFR Point of Ca re01-12-2023 Creatinine [Mass/Vol] 0.55 mg/dL 0.51 - 1.19 mg/dL [facility] [employer] eGFR, POC mL/min/1.73m 2 [facility] [employer] Comment on above: These results are not intended for use in patients <18 years of age. eGFR results are calculated without a race factor using the 2020 CKD-EPI equation. Careful clinical correlation is recommended, particularly when comparing to results calculated using previous equations. The CKD-EPI equation is less accurate in patients with extremes of muscle mass, extra-renal metabolism of creatine, excessive creatine ingestion, or following therapy that affects renal tubular secretion. Creatinine [Mass/Vol] 0.44 mg/dL Low 0.51 - 1.19 mg/dL [facility] [employer] eGFR, POC mL/min/1.73m 2 [facility] [employer] Comment on above: These results are not intended for use in patients <18 years of age. eGFR results are calculated without a race factor using the 2020 CKD-EPI equation. Careful clinical correlation is recommended, particularly when comparing to results calculated using previous equations. The CKD-EPI equation is less accurate in patients with extremes of muscle mass, extra-renal metabolism of creatine, excessive creatine ingestion, or following therapy that affects renal tubular secretion. ELECTROLYTES PLUSon 01-12-20 Anion gap [Moles/Vol] 12 mmol/L 7 - 16 mmol/L [facility] Chloride [Moles/Vol] 113 mmol/L High 98 - 10 7 mmol/L [facility] CO2 [Moles/Vol] 13 mmol/L Low 22 - 30 mmol/L [facility] Potassium [Moles/Vol] 4.6 mmol/L High 3.5 - 4.5 mmol/L [facility] Sodium [Moles/Vol] 137 mmol/L Low 138 - 146 mmol/L [facility] Anion Gap Can not be calculated 7 - 16 mmol/L [facility] Chloride [Moles/Vol] 127 mmol/L High 98 - 10 7 mmol/L [facility] CO2 [Moles/Vol] mmol/L Critically low 22 - 30 mmol/L [facility] Potassium [Moles/Vol] 1.5 mmol/L Critically low 3.5 - 4.5 mmol/L [facility] Sodium [Moles/Vol] 152 mmol/L High 138 - 146 mmol/L [facility] Ethanolon 01-12-2023 Ethanol [Mass/Vol] 240 mg/dL High NINF - 10 mg/dL [facility] Ethanol percent 0.24 % High NINF - 0.010 % [facility] Interpretation and review of laboratory results Abnormal [facility] HCG Qualitative, Serumon hCG Qual Negative NEGATIVE [facility] Comment on above: Specimens with hCG l evels near the threshold of the test (25 mIU/mL) may give a negative or indeterminate result. In such cases, another test should be performed with a new specimen in 48-72 hours. If early is suspected clinically in this setting, correlation with quantitative serum b-hCG level is suggested. [employer] has confirmed the use of plasma for this test. This has not been cleared or approved by the U.S. Food and Drug Administration. The FDA has determined that such clearance is not necessary. [facility] Hemoglobin and hematocrit, b loodon 01-12-2023 Hematocrit (Bld) [Volume fraction] 45 % 36 - 46 % [facility] Hemoglobin (Bld) [Mass/Vol] 15.2 g/dL 12.0 - 16.0 g/dL [facility] Hematocrit (Bld) [Volume fraction] 20 % Low 36 - 46 % [facility] Hemoglobin (Bld) [Mass/Vol] 6.8 g/dL Critically low 12.0 - 16.0 g/dL [facility] Lactic Acid, POCon POC Lactic Acid 2.63 mmol/L High 0.56 - 1.39 mmol/L [facility] POC Lactic Acid 1.19 mmol/L 0.56 - 1.39 mmol/L [facility] Magnesiumon 01-12-2023 Magnesium [Mass/Vol] 2.0 mg/dL 1.6 - 2 .6 mg/dL [facility] No Panel Informationon 01-12 Interpretation and review of laboratory results Abnormal [facility] Interpretation and review of laboratory results Abnormal [facility] Interpretation and review of laboratory results Abnormal [facility] POC Glucose Fingerstickon Glucose [Mass/Vol] 134 mg/dL High 65 - 105 mg/dL [facility] Interpretation and review of laboratory results Abnormal [facility] Glucose [Mass/Vol] 55 mg/dL Low 65 - 105 mg/dL [facility] Comment on above: Critical Noted Interpretation and review of laboratory results Abnormal [facility] POCT Glucoseon 01-12-2023 Glucose [Mass/Vol] 57 mg/dL Low 74 - 100 mg/dL [facility] Glucose [Mass/Vol] 21 mg/dL Critically low 74 - 10 0 mg/dL [facility] POCT urea (BUN)on 01-12-2023 Urea nitrogen [Mass/Vol] 8 mg/dL 8 - 26 mg/dL [facility] Urea nitrogen [Mass/Vol] mg/dL Low 8 - 26 mg/dL [facility] Salicylateon 01-12-2023 Salicylate Lvl mg/dL Low 3 - 10 mg/dL [facility] TOXIC TRICYCLIC SC,Bon 01-12 Toxic Tricyclic Sc,Blood Negative NEGATIVE [facility] Venous Blood Gas, POCon 12-22 HCO3 (Bld) [Moles/Vol] 13.6 mmol/L Low 22.0 - 29.0 mmol/L [facility] Negative Base Excess, Luis Carlos 13 High 0.0 - 2.0 [facility] Oxygen saturation in Blood 81 % 60.0 - 85.0 % [facility] pCO2, Luis Carlos 32.2 Low [facility] pH, Luis Carlos 7.235 Low 7.320 - 7.430 [facility] pO2, Luis Carlos 52.5 High [facility] HCO3 (Bld) [Moles/Vol] 5.6 mmol/L Low 22.0 - 29.0 mmol/L [facility] Negative Base Excess, Luis Carlos 21 High 0.0 - 2.0 [facility] Oxygen saturation in Blood 74 % 60.0 - 85.0 % [facility] pCO2, Luis Carlos 15.5 Low [facility] pH, Luis Carlos 7.161 Critically low 7.320 - 7.430 [facility] pO2, Luis Carlos 48.6 [facility] XR CHEST PORTABLEon 01-12-20 No acute cardiopulmonary abnormality. [facility] R[facility] CONSOLIDATED EXAMINATION: ONE XRAY VIEW OF THE CHEST 01/12/2023 9:55 pm COMPARISON: None. HISTORY: ORDERING SYSTEM PROVIDED HISTORY: seizure TECHNOLOGIST PROVIDED HISTORY: seizure Reason for Exam: upr,seizure,stomach pain FINDINGS: Cardiomediastinal silhouette is normal in size. There is no pleural effusion or pneumothorax. There is no pulmonary consolidation. There is no acute osseous abnormality. [facility] RIS CONSOLIDATED Karina Marin MD - 01/12/2023 EXAMINATION: ONE XRAY VIEW OF THE CHEST 01/12/2023 9:55 pm COMPARISON: None. HISTORY: ORDERING SYSTEM PROVIDED HISTORY: seizure TECHNOLOGIST PROVIDED HISTORY: seizure Reason for Exam: upr,seizure,stomach pain FINDINGS: Cardiomediastinal silhouette is normal in size. There is no pleural effusion or pneumothorax. There is no pulmonary consolidation. There is no acute osseous abnormality. IMPRESSION: No acute cardiopulmonary abnormality. [employer] Phone: Radiology Study observation (narrative) [employer] Phone: XR CHEST PORTABLEOrdered By: Karina Marin on 01-12-2023 [employer] Phone: ACETAMINOPHEN LEVELon 2021 ACETAMINOPHEN (UG/ML) IN SER/PLAS <10 Low 10-30 [facility] Comment on above: Performed By: #### L [id number] ####[facility] (BEAKER)[address] [place] [address] BASIC METABOLIC PANELon 11-0 Anion gap [Moles/Vol] 8 mmol/L Normal 7-20 [facility] Comment on above: Performed By: #### L [id number] #### [facility] (BEAK[facility]) [address] [place] [address] Calcium [Mass/Vol] 9.4 mg/dL Normal 8.6-10.3 [facility] Comment on above: Performed By: #### L [id number] #### [facility] (BEAKER) [address] [place] [address] Chloride [Moles/Vol] 100 mmol/L Normal 98-107 [facility] Comment on above: Performed By: #### L [id number] #### [facility] (BEAKER) [address] [place] [address] CO2 [Moles/Vol] 26 mmol/L Normal 21-31 [facility] Comment on above: Performed By: #### L [id number] #### [facility] (BEAKER) [address] [place] [address] Creatinine [Mass/Vol] 1.03 mg/dL Normal 0.60-1.20 [facility] Comment on above: Performed By: #### L [id number] #### [facility] ([facility]AKER) [address] [place] [address] GLOMERULAR FILTRATION RATE ML/MIN/1.73 SQ M.PREDICTED 73.1 mL/min/1.73m*2 Normal >60.0 [facility] Comment on above: Result Comment: [facility]???s estimated glomerular filtration rate (eGFR) will no longer include consideration of race in its calculation. The National Kidney Foundation???s eGFR Task Force developed new recommendations for the estimation of the glomerular filtration rate in the [place] They recommend immediate implementation of the new equation refit without the race variable in all laboratories because the calculation does not include race. In addition to not including race in the calculation and reporting, it included diversity in its development, and has acceptable performance characteristics and potential consequences that do not disproportionately affect any one group of individuals. Performed By: #### L [id number] #### [facility] ([facility]) [address] [place] [address] Glucose [Mass/Vol] 113 mg/dL High 70-100 [facility] Comment on above: Performed By: #### L [id number] #### [facility] ([facility]) [address] [place] [address] Potassium [Moles/Vol] 3.7 mmol/L Normal 3.5-5.1 [facility] Comment on above: Performed By: #### L [id number] #### [facility] ([facility]) [address] [place] [address] Sodium [Moles/Vol] 134 mmol/L Low 136-145 [facility] Comment on above: Performed By: #### L [id number] #### [facility] ([facility]) [address] [place] [address] Urea nitrogen [Mass/Vol] 22 mg/dL Normal 7-25 [facility] Comment on above: Performed By: #### L [id number] #### [facility] ([facility]) [address] [place] [address] UREA NITROGEN/CREATININE (MASS RATIO) IN SER/PLAS 21.36 Normal [facility] Comment on above: Performed By: #### L [id number] #### [facility] ([facility]) [address] [place] [address] CBC WITH AUTO DIFFERENTIALon 09-28-2022 Basophils (Bld) [#/Vol] 0.03 10*3/uL Normal 0.00-0.20 [facility] Comment on above: Performed By: #### L [id number] ####[facility] (BEAKER)[address] [place] [address] Basophils/100 WBC (Bld) 0.6 % Normal 0.0-1.0 [facility] Comment on above: Performed By: #### L [id number] ####[facility] (BEAKER)[address] [place] [address] Eosinophils (Bld) [#/Vol] 0.09 10*3/uL Normal 0.00-0.50 [facility] Comment on above: Performed By: #### L [id number] ####[facility] (BEAKER)[address] [place] [address] Eosinophils/100 WBC (Bld) 1.8 % Normal 0.0-6.0 [facility] Comment on above: Performed By: #### L [id number] ####[facility] ([facility]AKER)[address] [place] [address] ERYTHROCYTE DISTRIBUTION WIDTH (RATIO) STANDARD DEVIATION 48.2 Normal [facility] Comment on above: Performed By: #### L [id number] ####[facility] (BEAKER)[address] [place] [address] Erythrocyte distribution width (RBC) [Ratio] 12.9 % Normal 11.5-15.0 [facility] Comment on above: Performed By: #### L [id number] ####[facility] (BEAKER)[address] [place] [address] ERYTHROCYTE MEAN CORPUSCULAR HEMOGLOBIN CONCENTRATION (G/DL) BY AUTOMATED 33.9 g/dL Normal 32.0-35.0 [facility] Comment on above: Performed By: #### L [id number] ####[facility] (BEAKER)[address] [place] [address] Hematocrit (Bld) [Volume fraction] 30.4 % Low 36.0-48.0 [facility] Comment on above: Performed By: #### L [id number] ####[facility] ([facility]AKER)[address] [place] [address] Hemoglobin (Bld) [Mass/Vol] 10.3 g/dL Low 12.0-15.0 [facility] Comment on above: Performed By: #### L [id number] ####[facility] [place] [address] Immature granulocytes (Bld) [#/Vol] 0.03 10*3/uL Normal 0.00-0.20 [facility] Comment on above: Performed By: #### L [id number] ####[facility] ([facility]AKER)[address] [place] [address] Immature granulocytes/100 WBC (Bld) 0.6 % Normal 0.0-1.0 [facility] Comment on above: Performed By: #### L [id number] ####[facility] ([facility])[address] [place] [address] Lymphocytes (Bld) [#/Vol] 1.70 10*3/uL Normal 1.20-4.00 [facility] Comment on above: Performed By: #### L [id number] ####[facility] ([facility])[address] [place] [address] Lymphocytes/100 WBC (Bld) 34.6 % Normal 20.0-45.0 [facility] Comment on above: Performed By: #### L [id number] ####[facility] ([facility]ER)[address] [place] [address] MCH (RBC) [Entitic mass] 35.3 pg High 27.0-33.0 [facility] Comment on above: Performed By: #### L [id number] ####[facility] ([facility]AKER)[address] [place] [address] MCV (RBC) [Entitic vol] 104.1 fL High 82.0-98.0 [facility] Comment on above: Performed By: #### L [id number] ####[facility] ([facility])[address] [place] [address] Monocytes (Bld) [#/Vol] 0.99 10*3/uL Normal 0.10-1.00 [facility] Comment on above: Performed By: #### L [id number] ####[facility] ([facility])[address] [place] [address] Monocytes/100 WBC (Bld) 20.1 % High 5.0-12.0 [facility] Comment on above: Performed By: #### L [id number] ####[facility] ([facility])[address] [place] [address] Neutrophils (Bld) [#/Vol] 2.08 10*3/uL Normal 1.60-7.60 [facility] Comment on above: Performed By: #### L [id number] ####[facility] ([facility])[address] [place] [address] Neutrophils/100 WBC (Bld) 42.3 % Normal 40.0-72.0 [facility] Comment on above: Performed By: #### L [id number] ####[facility] ([facility])[address] [place] [address] NRBC (PER 100 WBCS) BY AUTOMATED COUNT 0.0 % Normal 0.0-0.0 [facility] Comment on above: Performed By: #### L [id number] ####[facility] ([facility])[address] [place] [address] PLATELETS (10*3/UL) IN BLOOD AUTOMATED COUNT 160 10*3/uL Normal 150-400 [facility] Comment on above: Performed By: #### L [id number] ####[facility] ([facility] [place] [address] RBC (Bld) [#/Vol] 2.92 10*6/uL Low 3.80-5.00 [facility] Comment on above: Performed By: #### L [id number] ####[facility] ([facility])[address] [place] [address] WBC (Bld) [#/Vol] 4.92 10*3/uL Normal 4.00-10.60 [facility] Comment on above: Performed By: #### L [id number] ####[facility] ([facility])[address] [place] [address] CONSULTon 09-28-2022 CONSULT --- Attestation signed by Juliet Beckman MD at 10/04/2022 11:42 AM As the teaching physician, I discussed this case with the resident physician career information specialist as well as the medical student. I did not see this case in person. SUBJECTIVE: CC: Alcohol intoxication and opioid overdose History of present illness: 31 year-old female with a past psychiatric history of depression and anxiety presented to [facility] on 09/28/2022 for evaluation of alcohol intoxication and opioid overdose. Per social work, ???patient was admitted to [facility] from 09/23/2022-09/28/2022 for alcohol abuse and opiate overdose. She was given discharge recommendations to [facility] for detox assessment. Of note, it appears Dr. Anand, a psychiatrist, was involved in patient's care.??? Psychiatry was consulted for alcohol intoxication and opioid overdose. Patient appears under the influence of substance as evidenced by nodding off, but responsive to verbal stimuli. She appears slumped over and has trouble keeping her eyes open/maintaining eye contact. She denies that this was a suicide attempt. Patient states she did have suicidal ideation ???years ago??? but has not had thoughts of harming herself and others since. She states she has no intent or plan to harm herself and others. She denies prior suicide attempt. She states she used to ???cut herself as a kid,??? but there was no intention to kill herself. Patient denies visual and auditory hallucinations. Patient, born and raised in [place], states she has been struggling with substance abuse since 19 years old. She admits to stealing and ???becoming addicted??? to morphine at 19 years old. She states she was placed in a ???safe-house for a controlled environment??? for a couple of weeks due to mis-use. She also states she was sent to a detox center in [place] at 20 years old for opioid over-dose. Currently, she ???shoots heroin w/ and w/o fentanyl.??? She states the last time she used opioids was last Monday09/23/2022. With regards to alcohol consumption, patient states her last drink was last Monday as well 09/23/2022. Patient states she drinks about 1 gallon of vodka/day--she takes shots throughout the day. She states it helps with her constant anxiety and worry. She states since December 2020, she would drink heavily for 4 months, then stop for ~1month, then continue drinking for another 4 months, in that pattern. She was admitted to a detox center in [facility] 2019 and March 2020. She states after she completed her course from her admission in March 2020, she was hired as an employee until she quit in September 2020. In between those months, she was not consuming alcohol nor using opioids. Patient states [facility]; however, patient states she was ???never properly evaluated for [her] depression and anxiety.??? Her medications are pending confirmation with her pharmacy on [address]. Patient states her energy is usually ???low??? and receives very little sleep. She states she would sleep ???for 2 hours, smoke a cigarette, then sleep for another 2 hours.??? Patient states she has a fianc??? who is currently in half-way. Her relationship with her mother is strained because of her ???constant substance use.??? She states she and her mother ???used to be best friends, a team.??? Her ???strained relationship with her mother and her own life??? puts her in a constant state of anxiety and worry. She states she lives alone in her apartment, and her mother pays her rent, for she is currently unemployed. However, she states ???my mother threatened to cut me off if I go off the rails again.??? She still made a phone call to her mother to let her know her current situation. Additionally, she states her energy levels are always low, but alcohol and opioid use help her depressive and anxious symptoms. Collateral: Mother- [phone]. Mother states she is aware of patient's situation. She states that patient has been struggling with substance abuse for ~12 years. However, she states she does not believe that the patient overdosed with the intention of harming herself, with regards to her most recent overdose, Mother states that she believes the patient wants to get better and recover, but ???she gets in her own way.??? Mother states she ???loves her daughter, for she is the air [she] breathes.??? However, she states the patient continues to fall back into her cycle of substance abuse which puts her at risk for losing the ones she loves (ie. Mother and brother). Mother states she will support her journey towards recover, but is ???exhausted from seeing her relapse back into her old ways.??? PSYCHIATRIC REVIEW OF SYSTEMS: The patient (more content not included)... Normal [facility] [place] 09-28-2022 JENI Pt states that she i s interested in detox. Pt states that she is detoxing from alcohol and opiates. Pt states that she last took both 2 days ago. Detox would not take pt d/t SI. Pt states that she has been feeling depressed. Pt states that she feels like everyone is turning their back on her. Pt states that she feels like she wants to run out into traffic. Pt denies HI. [facility] EDPROVon 09-28-2022 EDPROV Attestation: As the teaching physician, I have personally performed or re-performed the history of present illness, physical exam and medical decision-making activities of the encounter and verified the medical student's documentation. I made pertinent changes as necessary to ensure accurate documentation. Additional Comments: Pt requesting detox and also states she wants to fun into traffic. Kori Ellsworth DO Attending physician [facility] Emergency Department Kori Ellsworth DO 01/27/23 1716 [facility] EDPROV HPI Chief Complaint Patient presents with Withdrawal Suicidal HPI 31-year-old female presents with request for detox. Patient states she drinks 1/5 of vodka, Daily. Patient also notes she uses daily fentanyl, heroin. Unable to describe whether she smokes or injects it. Denies taking anything in the past several days. Denies any chest pain or shortness of breath. Denies any fevers, or active pain. Patient states that she wanted to run into traffic, but has no active plan of killing herself now. Denies any history of suicidal ideation in the past or previous suicidal attempts. Paradox Coma Scale Score: 15 Patient History No past medical history on file. No past surgical history on file. No family history on file. Social History Tobacco Use Smoking status: Not on file Smokeless tobacco: Not on file Substance Use Topics Alcohol use: Not on file Drug use: Not on file Review of Systems Review of Systems Constitutional: Negative for chills and fever. HENT: Negative for ear pain and sore throat. Eyes: Negative for pain and visual disturbance. Respiratory: Negative for cough and shortness of breath. Cardiovascular: Negative for chest pain and palpitations. Gastrointestinal: Negative for abdominal pain and vomiting. Genitourinary: Negative for dysuria and hematuria. Musculoskeletal: Negative for arthralgias and back pain. Skin: Negative for color change and rash. Neurological: Negative for seizures and syncope. Physical Exam ED Triage Vitals [09/28/22 1446] Temp Heart Rate Resp BP 36.7 ???C (98 ???F) 98 18 115/64 SpO2 Temp src Heart Rate Source Patient Position 100 % -- -- -- BP Location FiO2 (%) -- -- Physical Exam Vitals and nursing note reviewed. Constitutional: General: She is not in acute distress. Appearance: She is well-developed. HENT: Head: Normocephalic and atraumatic. Eyes: Conjunctiva/sclera: Conjunctivae normal. Cardiovascular: Rate and Rhythm: Normal rate and regular rhythm. Heart sounds: No murmur heard. Pulmonary: Effort: Pulmonary effort is normal. No respiratory distress. Breath sounds: Normal breath sounds. Abdominal: Palpations: Abdomen is soft. Tenderness: There is no abdominal tenderness. Musculoskeletal: Cervical back: Neck supple. Skin: General: Skin is warm and dry. Neurological: General: No focal deficit present. Mental Status: She is alert and oriented to person, place, and time. Mental status is at baseline. Cranial Nerves: No cranial nerve deficit. Sensory: No sensory deficit. ED Course & MDM ED Course as of 09/28/222209Sep 28, 2022 1702 Spoke with psych will evaluate the patient [JOSE MARIA] ED Course User Index [JOSE MARIA] Eligio Heard Diagnoses as of 09/28/222209 S/P alcohol detoxification MDM Number of Diagnoses or Management Options S/P alcohol detoxification Diagnosis management comments: Patient presents with request for detox. Given patient stated she went and run into traffic after patient was medically cleared psychiatry evaluated the patient and stated they were fine with the patient being admitted for detox as they did not feel she met inpatient criteria for psychiatry.Patient not tremulous, not tachycardic, not suicidal, no fasciculations. After psychiatry cleared the patient, spoke with detox center stated that there was not enough room for any more patients. will Request [facility] for placement. Patient refused to go to [facility] as she states she has been there before and they have kicked her out. Patient eloped after being told we would have to look for another detox center that may accept her. Patient was medically cleared, alert and oriented, able to make her own decisions, clinically sober at the time that patient eloped. An attempt to look for the patient was made but patient was not found with none of her belongings Eligio Heard 09/28/222208 Eligio Heard 09/28/222210 Normal [facility] ETHANOLon 09-28-2022 ETHANOL (MG/DL) IN SER/PLAS <10 Normal [facility] Comment on above: Result Comment: No E thanol detected Performed By: #### L [id number] #### [facility] [address] [place] [address] ETHANOL CALCULATED (%) [facility] Comment on above: Performed By: #### L AB46 #### [facility] ([facility]) [address] [place] [address] SALICYLATE LEVELon 2 SALICYLATES (MG/DL) IN SER/PLAS <2 Low 4-29 [facility] Comment on above: Performed By: #### L AB34 #### [facility] ([facility]) [address] [place] [address] CBC with Auto Differentialon 09-21-2022 Absolute Eos # [facility] Absolute Immature Granulocyte [facility] Absolute Lymph # 1.71 [facility] Absolute Hancock # 0.77 [facility] Basophils (Bld) [#/Vol] 0.03 10*3/uL [facility] Basophils/100 WBC (Bld) 1 % 0 - 2 % [facility] Eosinophils/100 WBC (Bld) 0 % Low 1 - 4 % [facility] Hematocrit (Bld) [Volume fraction] 39.4 % 36.3 - 47.1 % [facility] Hemoglobin (Bld) [Mass/Vol] 13.6 g/dL 11.9 - 15.1 g/dL [facility] Immature granulocytes/100 WBC (Bld) 0 % 0 [facility] Interpretation and review of laboratory results Abnormal [facility] Lymphocytes/100 WBC (Bld) 31 % 24 - 43 % [facility] MCH (RBC) [Entitic mass] 34.0 pg High 25.2 - 33.5 pg [facility] MCHC (RBC) [Mass/Vol] 34.5 g/dL 28.4 - 34.8 g/dL [facility] MCV (RBC) [Entitic vol] 98.5 fL 82.6 - 102.9 fL [facility] Monocytes/100 WBC (Bld) 14 % High 3 - 12 % [facility] NRBC Automated 0.0 0.0 per 100 WBC [facility] Platelet distribution width (Bld) [Ratio] 13.8 % 11.8 - 14.4 % [facility] Platelet mean volume (Bld) [Entitic vol] 10.0 fL 8.1 - 13.5 fL [facility] Platelets (Bld) [#/Vol] 157 10*3/uL [facility] RBC (Bld) [#/Vol] 4.00 10*6/uL 3.95 - 5.1 1 m/uL [facility] Segmented neutrophils/100 WBC (Bld) 54 % 36 - 65 % [facility] Segs Absolute 2.96 [facility] WBC (Bld) [#/Vol] 5.5 10*3/uL [facility] CBC with Diffon 09-21-2022 Abs. Basophil 0.03 k/uL Normal 0.00-0.20 [facility] Comment on above: Performed By: #### JATINDER JONES UAX #### [facility] [address] [place] [address] Cheesemaker Helper: Vijay Larios MD Abs. Eosinophil <0.03 Normal 0.00-0.44 [facility] Comment on above: Performed By: #### JATINDER JONES UAX #### [facility] [address] [place] [address] Cheesemaker Helper: Vijay Larios MD Abs.Imm.Granulocyte <0.03 Normal 0.00-0.30 [facility] Comment on above: Performed By: #### JATINDER JONES UAX #### [facility] [address] [place] [address] Cheesemaker Helper: Vijay Larios MD Abs.Neutrophil (Seg) 2.96 k/uL Normal 1.50-8.10 [facility] Comment on above: Performed By: #### JATINDER JONES UAX #### [facility] [address] [place] [address] Cheesemaker Helper: Vijay Larios MD Basophils/100 WBC (Bld) 1 % Normal 0-2 [facility] Comment on above: Performed By: #### JATINDER JONES, UAX #### [facility] [address] [place] [address] Cheesemaker Helper: Vijay Larios MD Eosinophils/100 WBC (Bld) 0 % Low 1-4 [facility] Comment on above: Performed By: #### JATINDER JONES UAX #### [facility] [address] [place] [address] Cheesemaker Helper: Vijay Larios MD Erythrocyte distribution width (RBC) [Ratio] 13.8 % Normal 11.8-14.4 [facility] Comment on above: Performed By: #### JATINDER JONES UAX #### [facility] [address] [place] [address] Cheesemaker Helper: Vijay Larios MD Hematocrit (Bld) [Volume fraction] 39.4 % Normal 36.3-47.1 [facility] Comment on above: Performed By: #### JATINDER JONES UAX #### [facility] [address] [place] [address] Cheesemaker Helper: Vijay Larios MD Hemoglobin (Bld) [Mass/Vol] 13.6 g/dL Normal 11.9-15.1 [facility] Comment on above: Performed By: #### JATINDER JONES UAX #### [facility] [address] [place] [address] Cheesemaker Helper: Vijay Larios MD Immature granulocytes/100 WBC (Bld) 0 % Normal 0 [facility] Comment on above: Performed By: #### JATINDER JONES UAX #### [facility] [address] [place] [address] Cheesemaker Helper: Vijay Larios MD Lymphocytes (Bld) [#/Vol] 1.71 10*3/uL Normal 1.10-3.70 [facility] Comment on above: Performed By: #### JATINDER JONES, UAX #### [facility] [address] [place] [address] Cheesemaker Helper: Vijay Larios MD Lymphocytes/100 WBC (Bld) 31 % Normal 24-43 [facility] Comment on above: Performed By: #### Maddi HALL HINA UAX #### [address] [address] Cheesemaker Helper: Vijay Larios MD MCH (RBC) [Entitic mass] 34.0 pg High 25.2-33.5 [facility] Comment on above: Performed By: #### JATINDER JONES UAX #### [facility] [address] [place] [address] Cheesemaker Helper: Vijay Larios MD MCHC (RBC) [Mass/Vol] 34.5 g/dL Normal 28.4-34.8 [facility] Comment on above: Performed By: #### JATINDER JONES UAX #### [address] [address] Cheesemaker Helper: Vijay Larios MD MCV (RBC) [Entitic vol] 98.5 fL Normal 82.6-102.9 [facility] Comment on above: Performed By: #### JATINDER JONES UAX #### [facility] [address] [place] [address] Cheesemaker Helper: Vijay Larios MD Monocytes (Bld) [#/Vol] 0.77 10*3/uL Normal 0.10-1.20 [facility] Comment on above: Performed By: #### JATINDER JONES UAX #### [facility] [address] [place] [address] Cheesemaker Helper: Vijay Larios MD Monocytes/100 WBC (Bld) 14 % High 3-12 [facility] Comment on above: Performed By: #### JATINDER JONES UAX #### [facility] [address] [place] [address] Cheesemaker Helper: Vijay Larios MD Neutrophil (Seg) 54 % Normal 36-65 [facility] Comment on above: Performed By: #### JATINDER JONES UAX #### [facility] [address] [place] [address] Cheesemaker Helper: Vijay Larios MD NRBC Automated 0.0 per 100 WBC Normal 0.0 [facility] Comment on above: Performed By: #### JATINDER JONES UAX #### [facility] [address] [place] [address] Cheesemaker Helper: Vijay Larios MD Platelet mean volume (Bld) [Entitic vol] 10.0 fL Normal 8.1-13.5 [facility] Comment on above: Performed By: #### JATINDER JONES UAX #### [facility] [address] [place] [address] Cheesemaker Helper: Vijay Larios MD Platelets (Bld) [#/Vol] 157 10*3/uL Normal 138-453 [facility] Comment on above: Performed By: #### JATINDER JONES UAX #### [facility] [address] [place] [address] Cheesemaker Helper: Vijay Larios MD RBC (Bld) [#/Vol] 4.00 10*6/uL Normal 3.95-5.11 [facility] Comment on above: Performed By: #### CRISTINA JONESO, UAX #### [email or web address] [address] [place], [place] [id number] Cheesemaker Helper: Vijay Larios MD WBC (Bld) [#/Vol] 5.5 10*3/uL Normal 3.5-11.3 [facility] Comment on above: Performed By: #### D JATINDER HALL UAX #### [employer] [address] [place], [place] [id number] Cheesemaker Helper: Vijay Larios MD CMPon 09-21-2022 Albumin [Mass/Vol] 4.4 g/dL 3.5 - 5.2 g/dL [facility] [employer] Albumin/Globulin [Mass ratio] 1.2 {ratio} 1.0 - 2.5 [facility] ALP (Bld) [Catalytic activity/Vol] 93 U/L 35 - 104 U/L [facility] Comment on above: SPECIMEN SLIGHTLY HE MOLYZED, RESULTS MAY BE ADVERSELY AFFECTED. ALT [Catalytic activity/Vol] 108 U/L High 5 - 33 U/L [facility] [employer] Comment on above: SPECIMEN SLIGHTLY HE MOLYZED, RESULTS MAY BE ADVERSELY AFFECTED. Anion gap [Moles/Vol] 23 mmol/L High 9 - 17 mmol/L [facility] [employer] AST [Catalytic activity/Vol] 430 U/L High NINF - 32 U/L [facility] Comment on above: SPECIMEN SLIGHTLY HE MOLYZED, RESULTS MAY BE ADVERSELY AFFECTED. Bilirubin [Mass/Vol] 1.0 mg/dL 0.3 - 1 .2 mg/dL [facility] [employer] Calcium [Mass/Vol] 9.2 mg/dL 8.6 - 10. 4 mg/dL [facility] Chloride [Moles/Vol] 99 mmol/L 98 - 10 7 mmol/L [facility] CO2 [Moles/Vol] 17 mmol/L Low 20 - 31 mmol/L [facility] Creatinine [Mass/Vol] 0.48 mg/dL Low 0.50 - 0.90 mg/dL [facility] GFR/1.73 sq M.predicted MDRD (S/P/Bld) [Vol rate/Area] - PINF [facility] [employer] Comment on above: Effective Aug 22, 2022 These results are not intended for use in patients <18 years of age. eGFR results are calculated without a race factor using the 2020 CKD-EPI equation. Careful clinical correlation is recommended, particularly when comparing to results calculated using previous equations. The CKD-EPI equation is less accurate in patients with extremes of muscle mass, extra-renal metabolism of creatine, excessive creatine ingestion, or following therapy that affects renal tubular secretion. Glucose [Mass/Vol] 115 mg/dL High 70 - 99 mg/dL [facility] Potassium [Moles/Vol] 3.5 mmol/L Low 3.7 - 5.3 mmol/L [facility] Comment on above: SPECIMEN SLIGHTLY HE MOLYZED, RESULTS MAY BE ADVERSELY AFFECTED. Protein [Mass/Vol] 8.0 g/dL 6.4 - 8.3 g/dL [facility]ITALBroad[facility] NetworksSAM[facility] Sodium [Moles/Vol] 139 mmol/L 135 - 144 mmol/L [facility] [employer] Urea nitrogen (BldV) [Mass/Vol] 15 mg/dL 6 - 20 mg/dL [facility] Comp Metabolic Profon 2021 Albumin [Mass/Vol] 4.4 g/dL Normal 3.5-5.2 [facility] Comment on above: Performed By: #### JATINDER JONES UAX #### [employer] [address] [place] [address] Cheesemaker Helper: Vijay Larios MD Albumin/Glob Ratio 1.2 Normal 1.0-2.5 [facility] Comment on above: Performed By: #### JATINDER JONES UAX #### [employer] [address] [place] [address] Cheesemaker Helper: Vijay Larios MD Alkaline Phos 93 U/L Normal 35-104 [facility] Comment on above: Result Comment: SPEC IMEN SLIGHTLY HEMOLYZED, RESULTS MAY BE ADVERSELY AFFECTED. Performed By: #### JATINDER JONES UAX #### [employer] [address] [place] [address] Cheesemaker Helper: Vijay Larios MD ALT [Catalytic activity/Vol] 108 U/L High 5-33 [facility] Comment on above: Result Comment: SPEC IMEN SLIGHTLY HEMOLYZED, RESULTS MAY BE ADVERSELY AFFECTED. Performed By: #### JATINDER JONES UAX #### [facility] [address] [place] [address] Cheesemaker Helper: Vijay Larios MD Anion gap [Moles/Vol] 23 mmol/L High 9-17 [facility] Comment on above: Performed By: #### JATINDER JONES UAX #### [facility] [address] [place] [address] Cheesemaker Helper: Vijay Larios MD AST [Catalytic activity/Vol] 430 U/L High <32 [facility] Comment on above: Result Comment: SPEC IMEN SLIGHTLY HEMOLYZED, RESULTS MAY BE ADVERSELY AFFECTED. Performed By: #### JATINDER JONES UAX #### [facility] [address] [place] [address] Cheesemaker Helper: Vijay Larios MD Bilirubin [Mass/Vol] 1.0 mg/dL Normal 0.3-1.2 [facility] Comment on above: Performed By: #### JATINDER JONES UAX #### [facility] [address] [place] [address] Cheesemaker Helper: Vijay Larios MD Calcium [Mass/Vol] 9.2 mg/dL Normal 8.6-10.4 [facility] Comment on above: Performed By: #### JATINDER JONES UAX #### [facility] [address] [place] [address] Cheesemaker Helper: Vijay Larios MD Chloride [Moles/Vol] 99 mmol/L Normal 98-107 [facility] Comment on above: Performed By: #### JATINDER JONES UAX #### [facility] [address] [place] [address] Cheesemaker Helper: Vijay Larios MD CO2 [Moles/Vol] 17 mmol/L Low 20-31 [facility] Comment on above: Performed By: #### JATINDER JONES UAX #### [facility] [address] [place] [address] Cheesemaker Helper: Vijay Larios MD Creatinine [Mass/Vol] 0.48 mg/dL Low 0.50-0.90 [facility] Comment on above: Performed By: #### JATINDER JONES UAX #### [address] [address] Cheesemaker Helper: Vijay Larios MD GFR/1.73 sq M.predicted among non-blacks MDRD (S/P/Bld) [Vol rate/Area] mL/min/{1.73_m2} Normal >60 [facility] Comment on above: Result Comment: Effective Aug 22, 2022 These results are not intended for use in patients <18 years of age. eGFR results are calculated without a race factor using the 2020 CKD-EPI equation. Careful clinical correlation is recommended, particularly when comparing to results calculated using previous equations. The CKD-EPI equation is less accurate in patients with extremes of muscle mass, extra-renal metabolism of creatine, excessive creatine ingestion, or following therapy that affects renal tubular secretion. Performed By: #### JATINDER JONES UAX #### [facility] [place] [address] Cheesemaker Helper: Vijay Larios MD Glucose [Mass/Vol] 115 mg/dL High 70-99 [facility] Comment on above: Performed By: #### JATINDER JONES UAX #### [facility] [address] [place] [address] Cheesemaker Helper: Vijay Larios MD Potassium [Moles/Vol] 3.5 mmol/L Low 3.7-5.3 [facility] Comment on above: Result Comment: SPEC IMEN SLIGHTLY HEMOLYZED, RESULTS MAY BE ADVERSELY AFFECTED. Performed By: #### JATINDER JONES UAX #### [facility] [address] [place] [address] Cheesemaker Helper: Vijay Larios MD Protein [Mass/Vol] 8.0 g/dL Normal 6.4-8.3 [facility] Comment on above: Performed By: #### JATINDER JONES UAX #### [facility] [address] [place] [address] Cheesemaker Helper: Vijay Larios MD Sodium [Moles/Vol] 139 mmol/L Normal 135-144 [facility] Comment on above: Performed By: #### JATINDER JONES UAX #### [facility] [address] [place] [address] Cheesemaker Helper: Vijay Larios MD Urea nitrogen [Mass/Vol] 15 mg/dL Normal 6-20 [facility] Comment on above: Performed By: #### JATINDER JONES UAX #### [facility] [address] [place] [address] Cheesemaker Helper: Vijay Larios MD ETOHon 09-21-2022 Ethanol [Mass/Vol] 233 mg/dL High NINF - 10 mg/dL [facility] Ethanol percent 0.233 % High NINF - 0.010 % [facility] Ethanol Alcoholon 09-21-2022 Ethanol [Mass/Vol] 233 mg/dL High <10 [facility] Comment on above: Performed By: #### B 12FOL, FEBC, LIVP #### [facility] [address] [place] [address] Cheesemaker Helper: Vijay Larios MD #### AASMF #### [address] [address] Cheesemaker Helper: Matthew Elkins MD Ethanol percent 0.233 % High <0.010 [facility] Comment on above: Performed By: #### B 12NANO, FEBC, LIVP #### [employer] [address] [place], [place] [id number] Cheesemaker Helper: Vijay Larios MD #### AASMF #### [facility] [address] [place] [address] Cheesemaker Helper: Matthew Elkins MD HCG Qualitative, Serumon hCG Qual Negative NEGATIVE [facility] Comment on above: Specimens with hCG l evels near the threshold of the test (25 mIU/mL) may give a negative or indeterminate result. In such cases, another test should be performed with a new specimen in 48-72 hours. If early is suspected clinically in this setting, correlation with quantitative serum b-hCG level is suggested. [employer] has confirmed the use of plasma for this test. This has not been cleared or approved by the U.S. Food and Drug Administration. The FDA has determined that such clearance is not necessary. [facility] HCG Screen, Bloodon 09-21-20 22 HCG Screen, Blood Negative Normal NEG [facility] Comment on above: Result Comment: Spec imens with hCG levels near the threshold of the test (25 mIU/mL) may give a negative or indeterminate result. In such cases, another test should be performed with a new specimen in 48-72 hours. If early is suspected clinically in this setting, correlation with quantitative serum b-hCG level is suggested. [employer] has confirmed the use of plasma for this test. This has not been cleared or approved by the U.S. Food and Drug Administration. The FDA has determined that such clearance is not necessary. Performed By: #### D AU, UMICAO, UAX #### [employer] [address] [place], [place] [id number] Cheesemaker Helper: Vijay Larios MD Lipaseon 09-21-2022 Lipase [Catalytic activity/Vol] 962 U/L High 13-60 [facility] Comment on above: Performed By: #### B 12FOL, FEBC, LIVP #### [facility] [address] [place] [address] Cheesemaker Helper: Vijay Larios MD #### AASMF #### [facility] [address] [place] [address] Cheesemaker Helper: Matthew Elkins MD Interpretation and review of laboratory results Abnormal [facility] Lipase [Catalytic activity/Vol] 962 U/L High 13 - 60 U/L [facility] No Panel Informationon 09-21 Interpretation and review of laboratory results Abnormal [facility] *SARS-CoV-2 COVID-19on 04-07 SARS-CoV-2 (COVID-19) RNA VIVIANA+probe Ql (Unsp spec) Detected Critically abnormal Not Detected [facility] Comment on above: Order Comment: The A ptima SARS-CoV-2 assay is a nucleic acid amplification test intended for the qualitative detection of RNA from SARS-CoV-2 isolated and purified from nasopharyngeal (TONGUE AND QUARTER STITCHER), oropharyngeal (OP), nasal swab, sputum, and bronchoalveolar lavage (BAL) specimens from patients with signs and symptoms of infection who are suspected of COVID-19. Results are for the identification of SARS-CoV-2 RNA. The SARS-CoV-2 RNA is generally detectable during the acute phase of infection. The Aptima SARS-CoV-2 Assay on the [employer] Fusion system is intended for use by laboratory personnel specifically instructed and trained in the operation of the [employer] and [employer] Fusion system. The Aptima SARS-CoV-2 assay is only for use under the Food and Drug Administration Emergency Use Authorization. Testing is limited to laboratories certified under the Clinical Laboratory Improvement Amendments of 1988 (CLIA), 42 U.S.C. ???263a, to perform high complexity tests. Detected: Detected result is indicative of the presence of SARS-CoV-2 RNA; clinical correlation with patient history and other diagnostic information is necessary to determine patient infection status. Detection of SARS-CoV-2 RNA does not rule out bacterial infection or co-infection with other viruses. Result Comment: Call mehul Burger on 04-08 at 0746. Faxed results to [phone]. Performed By: #### 3 [id number] #### [facility] [address] [place] [address], [facility] RPR ([id number])on 08-14-2020 [facility] RPR Ql (S) RPR SEE NOTE (NOTE) Result: NON-REACTIVE Reference range: NON-REACTIVE Test performed at [address] [id number] Director: SMOOTH CONTRERAS MD [facility] Comment on above: Performed By: #### M [facility] #### [facility] [address] [place] [address] HEPATIC FUNCTION PANELon Albumin [Mass/Vol] 4.7 g/dL Normal 3.5-5.0 [facility] Comment on above: Performed By: #### M [facility] #### [facility] [address] [place] [address] Albumin/Globulin [Mass ratio] 1.7 {ratio} Normal 1.5-2.5 [facility]. Comment on above: Performed By: #### M [facility] #### [facility] [address] [place] [address] ALK PHOS 61 U/L Normal 38-126 [facility] Comment on above: Performed By: #### M [facility] #### [facility] [address] [place] [address] ALT [Catalytic activity/Vol] 18 U/L Normal <35 [facility] Comment on above: Performed By: #### M [facility] #### [facility] [facility] [address] [place] [address]1973 AST [Catalytic activity/Vol] 33 U/L Normal 14-36 [facility] Comment on above: Performed By: #### [facility] #### [facility] [address] [place] [address] 20902 Bilirubin [Mass/Vol] 0.4 mg/dL Normal 0.2-1.3 [facility] Comment on above: Performed By: #### [facility] #### [facility] [address] [place] [address] Bilirubin.direct [Mass/Vol] 0.3 mg/dL Normal 0.0-0.3 [facility] Comment on above: Performed By: #### [facility] #### [facility] [address] [place] [address] Protein [Mass/Vol] 7.4 g/dL Normal 6.3-8.2 [facility] Comment on above: Performed By: #### [facility] #### [facility] [address] [place] [address] 15188 HEPATITIS C AB w REFLX PCR Q UANon 08-13-2020 HEPATITIS C AB w REFLX Negative Normal NEG [facility] Comment on above: Performed By: #### [facility] #### [facility] [address] [place] [address]009 EMGon 04-14-2020 EM[place] [id number] EMG REPORT Patient : GERMAN JACOB Status : REG REF Age : 29 Room/Bed : D.O.B : 91 Acct. Number : [id number] Sex : F M.R. Number : [id number] Ordering Physician : Mai Mcwilliams Admitting Diagnosis: RIGHT WRIST PAIN AND NUMBNESS Physician to Read : Date of Study : 04/14/20 DATE OF STUDY: 04/14/2020 INTRODUCTION: The patient is a 29-year-old female with right upper extremity weakness and wrist draw. PHYSICAL EXAMINATION: Normal bulk and tone. Strength is 5 out of 5 in all extremities except decreased distally along the right upper extremity. Deep tendon reflexes 2 plus. [id number] intact. Gait is within normal range. SUMMARY: Motor nerve conduction studies were performed on the bilateral median and ulnar nerves. All revealed normal latencies, amplitudes and conduction velocities. F-wave latencies were within normal range. Sensory nerve conduction studies were performed on the bilateral median, ulnar, right radial and left median mixed nerves. All revealed normal insertional activity with normal MUAPs. Recruitment pattern was consistent with effort. However, left median revealed slightly decreased conduction velocity. Concentric needle EMG exam was performed across FDI, brachioradialis, biceps, triceps, and deltoid. All revealed normal insertional activity with normal MUAPs. Recruitment pattern was consistent with effort. CLINICAL INTERPRETATION: This is an abnormal study with evidence of mild median neuropathy, i.e., carpal tunnel syndrome on the left. Clinical correlation advised. GERMAN JACOB - /FN/hns DOC#: [id number]/JOB#: [id number] [place] [id number] EMG REPORT Patient : GERMAN JACOB Status : REG REF Age : 29 Room/Bed : D.O.B : 91 Acct. Number : [id number] Sex : F M.R. Number : [id number] Ordering Physician : Mai Mcwilliams Admitting Diagnosis: RIGHT WRIST PAIN AND NUMBNESS Physician to Read : Date of Study : 04/14/20 MAX JACQUES Shannon Linda.... 04/14/20 Carrie Menendez MD T.... 04/14/20 0846 Signed Electronically 04/15/20 1055 cc: [facility] 04-14-2020 [facility] Name: GERMAN JACOB Phys: Mai Mcwilliams : 1990 Age: 29 Sex: F Acct: [id number] Loc: [facility] Exam Date: 04/14/2020 Status: REG REF Radiology No: Unit No: [id number] PH: [phone] Diagnosis: RIGHT WRIST PAIN AND NUMBNESS EXAM: [id number] SPINE/LUMBAR MIN 4 VWS Reason For Procedure: LUMBANGO SCIATICA RIGHT SIDE STUDY: SPINE/DORSAL 3 VWS, SPINE/LUMBAR MIN 4 VWS CLINICAL INDICATION: Mid and low back pain with right-sided sciatica TECHNIQUE: 3 views thoracic, 5 views lumbar spine COMPARISON: None FINDINGS: Thoracic: There is no acute fracture or subluxation identified. Mild disc space narrowing with endplate osteophytes. Mild S-shaped scoliosis. Lamina and pedicles appear intact. Straightening of the normal thoracic kyphosis. Lumbar: Normal stature to 5 lumbar vertebrae with mild levoscoliosis. Some limitation from stool artifact but the pars regions appear intact. Mild retrolisthesis of L4 on L5. Very mild disc space narrowing with endplate spurring throughout the lumbar spine. Mild degenerative changes in the facets most notably L5-S1. Included SI joints symmetric. Large volume of colonic stool. IMPRESSION: THORACIC: MILD DEGENERATIVE CHANGES WITH S-SHAPED SCOLIOSIS. LUMBAR: MILD DEGENERATIVE CHANGES WITH LEVOSCOLIOSIS. IF PAIN CONTINUES AT ANY ABOVE SITE MR IMAGING RECOMMENDED. SITE O PAGE 1 Signed Report (CONTINUED) Name: GERMAN JACOB Phys: Mai Mcwilliams : 1990 Age: 29 Sex: F Acct: [id number] Loc: [facility] Exam Date: 04/14/2020 Status: REG REF Radiology No: Unit No: [id number] PH: [phone] Diagnosis: RIGHT WRIST PAIN AND NUMBNESS EXAM: [id number] SPINE/LUMBAR MIN 4 VWS Reason For Procedure: LUMBANGO SCIATICA RIGHT SIDE REPORT ELECTRONICALLY SIGNED BY: Elia Garcia D.O. 04/14/2020 9:06 AM REPORT SIGNED IN OTHER VENDOR SYSTEM 04/14/2020 Reported By: Elia Garcia DO CC: Mai Mcwilliams Technologist: RT CHAN/Tanya Transcribed Date/Time: 04/14/2020 (906) Boss Miner: PARVIN Printed Date/Time: 04/14/2020 (906) PAGE 2 Signed Report Normal [facility] SPTDSVon 04-14-2020 SPTDSV Name: GERMAN JACOBBETH Phys: McwilliamsMai : 1990 Age: 29 Sex: F Acct: [id number] Loc: [facility] Exam Date: 04/14/2020 Status: REG REF Radiology No: Unit No: [id number] PH: [phone] Diagnosis: RIGHT WRIST PAIN AND NUMBNESS EXAM: [id number] SPINE/DORSAL 3 VWS Reason For Procedure: LUMBANGO SCIATICA RIGHT SIDE STUDY: SPINE/DORSAL 3 VWS, SPINE/LUMBAR MIN 4 VWS CLINICAL INDICATION: Mid and low back pain with right-sided sciatica TECHNIQUE: 3 views thoracic, 5 views lumbar spine COMPARISON: None FINDINGS: Thoracic: There is no acute fracture or subluxation identified. Mild disc space narrowing with endplate osteophytes. Mild S-shaped scoliosis. Lamina and pedicles appear intact. Straightening of the normal thoracic kyphosis. Lumbar: Normal stature to 5 lumbar vertebrae with mild levoscoliosis. Some limitation from stool artifact but the pars regions appear intact. Mild retrolisthesis of L4 on L5. Very mild disc space narrowing with endplate spurring throughout the lumbar spine. Mild degenerative changes in the facets most notably L5-S1. Included SI joints symmetric. Large volume of colonic stool. IMPRESSION: THORACIC: MILD DEGENERATIVE CHANGES WITH S-SHAPED SCOLIOSIS. LUMBAR: MILD DEGENERATIVE CHANGES WITH LEVOSCOLIOSIS. IF PAIN CONTINUES AT ANY ABOVE SITE MR IMAGING RECOMMENDED. SITE O PAGE 1 Signed Report (CONTINUED) Name: GERMAN JACOB Phys: Mai Mcwilliams : 1990 Age: 29 Sex: F Acct: [id number] Loc: [facility] Exam Date: 04/14/2020 Status: REG REF Radiology No: Unit No: [id number] PH: [phone] Diagnosis: RIGHT WRIST PAIN AND NUMBNESS EXAM: [id number] SPINE/DORSAL 3 VWS Reason For Procedure: LUMBANGO SCIATICA RIGHT SIDE REPORT ELECTRONICALLY SIGNED BY: Elia Garcia D.O. 04/14/2020 9:06 AM REPORT SIGNED IN OTHER VENDOR SYSTEM 04/14/2020 Reported By: Elia Garcia DO CC: Mai Mcwilliams Technologist: RT CHAN/Tanya Transcribed Date/Time: 04/14/2020 (906) Boss Miner: PARVIN Printed Date/Time: 04/14/2020 (906) PAGE 2 Signed Report Normal [facility] Vital Signs Date Time Vital Sign Value Performing Clinician Facility 08-20-2024 16:00-0400 Body temperature 98.9 [degF] PHYSICIAN VERA [facility] 08-20-2024 16:00-0400 Diastolic blood pressure 90 mm[Hg] PHYSICIAN NO [facility] 08-20-2024 16:00-0400 Heart rate 53 /min PHYSICIAN NO [facility] 08-20-2024 16:00-0400 Respiratory rate 23 /min PHYSICIAN NO [facility] 08-20-2024 16:00-0400 SaO2% (BldA) [Mass fraction] 99 % PHYSICIAN NO [facility] 08-20-2024 16:00-0400 Systolic blood pressure 147 mm[Hg] PHYSICIAN NO [facility] 08-20-2024 06:00-0400 Body weight 94 kg PHYSICIAN NO [facility] 08-19-2024 16:55-0400 Body height 172.72 cm PHYSICIAN NO [facility] 08-18-2024 06:00-0400 Inhaled oxygen flow rate 2 L/min PHYSICIAN NO [facility] 08-17-2024 10:00-0400 Inhaled oxygen concentration 30 % PHYSICIAN NO [facility] 08-12-2024 17:01-0400 Diastolic blood pressure 61 mm[Hg] PHYSICIAN NO [facility] 08-12-2024 17:01-0400 Heart rate 82 /min PHYSICIAN NO [facility] 08-12-2024 17:01-0400 Respiratory rate 12 /min PHYSICIAN NO [facility] 08-12-2024 17:01-0400 SaO2% (BldA) [Mass fraction] 100 % PHYSICIAN NO [facility] 08-12-2024 17:01-0400 Systolic blood pressure 128 mm[Hg] PHYSICIAN NO [facility] 08-12-2024 15:25-0400 Inhaled oxygen concentration 100 % PHYSICIAN NO [facility] 08-12-2024 12:14-0400 Inhaled oxygen flow rate 15 L/min PHYSICIAN NO [facility] 08-12-2024 10:17-0400 Body temperature 99.1 [degF] PHYSICIAN NO [facility] 08-12-2024 10:11-0400 Body height 172.72 cm PHYSICIAN NO [facility] 08-12-2024 10:11-0400 Body weight 91.6 kg PHYSICIAN NO [facility] 03-06-2023 16:15-0400 Body height 172.72 cm Karen Langford Other [employer] Other 03-06-2023 16:15-0400 Body mass index (BMI) [Ratio] 26.06 kg/m2 Karen Langford Other [facility] 03-06-2023 16:15-0400 Body temperature 98.3 [degF] Karen Langford Other [facility] 03-06-2023 16:15-0400 Body weight 77.75 kg Karen Langford Other [facility] 03-06-2023 16:15-0400 Respiratory rate 18 /min Karen Langford Other [facility] 03-06-2023 16:15-0400 SaO2% (BldA) [Mass fraction] 96 % Karen Langford Other [facility] 01-17-2023 12:26-0500 Body temperature 98.2 [degF] Chase Peguero MD Work Phone: [employer] 01-17-2023 12:26-0500 Diastolic blood pressure 63 mm[Hg] Chase Peguero MD Work Phone: [employer] 01-17-2023 12:26-0500 Heart rate 92 /min Chase Peguero MD Work Phone: [employer] 01-17-2023 12:26-0500 SaO2% (BldA) [Mass fraction] 99 % Chase Peguero MD Work Phone: [employer] 01-17-2023 12:26-0500 Systolic blood pressure 96 mm[Hg] Chase Peguero MD Work Phone: [facility] [employer] 01-17-2023 08:35-0500 Respiratory rate 17 /min Chase [facility]ero [facility] 01-17-2023 06:19-0500 Body mass index (BMI) [Ratio] 22.46 kg/m2 Chase Peguero MD [facility] 01-17-2023 06:19-0500 Body weight 71 kg Chase Peguero MD [facility] 01-13-2023 10:00-0500 Body height 177.8 cm Chase Peguero MD [facility] 09-21-2022 18:51-0400 Heart rate 95 /min Helen Ramirez MD [facility] 09-21-2022 18:51-0400 Respiratory rate 26 /min Helen Ramirez MD [facility] 09-21-2022 16:30-0400 Diastolic blood pressure 92 mm[Hg] Helen Ramirez MD [facility] 09-21-2022 16:30-0400 SaO2% (BldA) [Mass fraction] 95 % Helen Ramirez MD [facility] 09-21-2022 16:30-0400 Systolic blood pressure 141 mm[Hg] Helen Ramirez MD [facility] 09-21-2022 14:17-0400 Body height 177.8 cm Helen Ramirez MD [facility] 09-21-2022 14:17-0400 Body mass index (BMI) [Ratio] 22.96 kg/m2 Helen Ramirez MD Work Phone: [facility] [employer] 09-21-2022 14:17-0400 Body temperature 98.4 [degF] Helen Ramirez MD Work Phone: [facility] 09-21-2022 14:17-0400 Body weight 72.58 kg Helen Ramirez MD Work Phone: [facility] Encounters Encounter Date Encounter Type Care Provider Facility Start: 08-20-2024 Non-patient / Non-visit PHYSICIAN NO [facility] [place] Work Phone: Start: 08-19-2024 Non-patient / Non-visit PHYSICIAN NO [facility] Pul[facility] Work Phone: Start: 08-19-2024 Non-patient / Non-visit PHYSICIAN NO [facility] Work Phone: Start: 08-13-2024 Non-patient / Non-visit PHYSICIAN NO [facility] [place] Work Phone: Start: 08-12-2024 Non-patient / Non-visit PHYSICIAN NO [facility] Work Phone: Start: 08-12-2024 End: 08-21-2024 Evaluation and management of inpatient PHYSICIAN NO [facility] Work Phone: Start: 08-03-2023 ambulatory [facility] Start: 07-31-2023 ambulatory [facility] Start: 07-27-2023 ambulatory [facility] Start: 06-29-2023 ambulatory [facility] Start: 06-01-2023 ambulatory [facility] Start: 05-04-2023 ambulatory [facility] Start: 04-20-2023 ambulatory [facility] Start: 04-13-2023 ambulatory [facility] Start: 04-06-2023 ambulatory [facility] Start: 03-29-2023 ambulatory [facility] Start: 03-21-2023 ambulatory [facility] Start: 03-06-2023 End: 03-06-2023 ambulatory Karen Anastasiya Other [employer] Other Start: 03-06-2023 Office outpatient ne w 20 minutes Karen Langford [facility] Start: 01-23-2023 End: 01-24-2023 ambulatory AKIRA NAVARRETE [facility] Start: 01-23-2023 End: 01-23-2023 Subsequent hospital visit by physician [facility] Start: 01-12-2023 End: 01-17-2023 Evaluation and management of inpatient SEGUNDO SOTO [facility] Start: 01-12-2023 End: 01-17-2023 Evaluation and management of inpatient Chase Peguero MD Work Phone: [address] Onc/Med Surg Comment on above: Seizure (HCC) (Prima ry Dx); Alcohol withdrawal syndrome without complication (HCC) Start: 09-28-2022 End: 09-28-2022 Emergency department patient visit KORI ELLSWORTH [facility] Start: 09-21-2022 End: 09-21-2022 Emergency department patient visit CHASE PEGUERO [facility] Start: 09-21-2022 End: 09-21-2022 Emergency department patient visit Helen Ramirez MD Work Phone: [facility] Comment on above: Heroin overdose, und etermined intent, initial encounter (HCC) (Primary Dx); Alcohol use Start: 04-07-2021 End: 04-07-2021 Emergency department patient visit KORI ELLSWORTH Facility:[facility] Procedures Date Procedure Procedure Detail Performing Clinician Start: 08-17-2024 Plain chest X-ray PHYSI FABIANA NO FAMILY Start: 08-16-2024 Plain chest X-ray PHYSI FABIANA NO FAMILY Start: 08-15-2024 Plain chest X-ray PHYSI FABIANA NO FAMILY Start: 08-14-2024 Plain chest X-ray PHYSI FABIANA NO FAMILY Start: 08-13-2024 Investigation of transfusion reaction PHYSICIAN NO FAMILY Start: 08-13-2024 Plain chest X-ray PHYSI FABIANA NO FAMILY Start: 08-12-2024 Plain chest X-ray PHYSI FABIANA NO FAMILY Start: 08-12-2024 Plain chest X-ray PHYSI FABIANA NO FAMILY Start: 08-12-2024 Bacteria identified in Urine by Culture PHYSICIAN NO FAMILY Start: 08-12-2024 Blood culture for bacteria, including anaerobic screen PHYSICIAN NO FAMILY Start: 08-12-2024 Respiratory Panel (PCR) PHYSICIAN NO FAMILY Start: 08-12-2024 Plain chest X-ray PHYSI FABIANA NO FAMILY Start: 08-12-2024 Computed tomography of abdomen and pelvis with contrast PHYSICIAN NO FAMILY Start: 08-12-2024 CT angiography of thorax PHYSICIAN NO FAMILY Start: 08-12-2024 Plain chest X-ray PHYSI FABIANA NO FAMILY Start: 08-12-2024 CT of head without contrast PHYSICIAN NO FAMILY Start: 01-23-2023 Comprehensive metabo lic panel Akira Navarrete APRN - [employer] Work Phone: Start: 01-15-2023 Blood count complete auto&auto difrntl wbc Segundo Soto MD Work Phone: Start: 01-14-2023 Us abdominal real ti me w/image limited Sapna Abarca MD Work Phone: Start: 01-14-2023 Hepatic function panel Sapna Abarca MD Work Phone: Start: 01-14-2023 Iron binding capacity V kali Abarca MD Work Phone: Start: 01-14-2023 SMOOTH MUSCLE ANTIBO DY QUANT Sapna Abarca MD Work Phone: Start: 01-14-2023 VITAMIN B12 & FOLATE Ve alvaro Abarca MD Work Phone: Start: 01-13-2023 Drug tst prsmv instr mnt chem analyzers pr date Sapna Abarca MD Work Phone: Start: 01-13-2023 Urinalysis microscop ic only Sapna Abarca MD Work Phone: Start: 01-13-2023 Urnls dip stick/tabl et rgnt auto w/o microscopy Sapna Abarca MD Work Phone: Start: 01-13-2023 Glucose blood reagen t strip Segundo Soto MD Work Phone: Start: 01-13-2023 Glucose blood reagen t strip Segundo Soto MD Work Phone: Start: 01-13-2023 Glucose blood reagen t strip Segundo Soto MD Work Phone: Start: 01-13-2023 End: 01-13-2023 CULTURE, BLOOD 1 Sapna Abarca MD Work Phone: Start: 01-13-2023 Assay of ethanol Ambreenni ca Jade Abarca MD Work Phone: Start: 01-13-2023 Calcium ionized Gale Abarca MD Work Phone: Start: 01-13-2023 Lipid panel Sapna Abarca MD Work Phone: Start: 01-13-2023 MITOCHONDRIAL ANTIBO DIES, M2, IGG Sapna Abarca MD Work Phone: Start: 01-13-2023 Glucose blood reagen t strip Dexter Zamarripa MD Work Phone: Start: 01-13-2023 End: 01-13-2023 Glucose blood reagent strip Dexter Zamarripa MD Work Phone: Start: 01-12-2023 Glucose blood reagen t strip Chase Peguero MD Work Phone: Start: 01-12-2023 Radiologic exam ches t single view Macho Muñoz MD Work Phone: Start: 01-12-2023 Assay of acetaminophen Macho Muñoz MD Work Phone: Start: 01-12-2023 Assay of ethanol Jovani Muñoz MD Work Phone: Start: 01-12-2023 Assay of salicylate Chr yajaira Muñoz MD Work Phone: Start: 01-12-2023 End: 01-12-2023 Comprehensive metabolic panel Macho Muñoz MD Work Phone: Start: 01-12-2023 TOXIC TRICYCLIC SC,B Ch yung Muñoz MD Work Phone: Start: 01-12-2023 Ecg routine ecg w/le ast 12 lds i&r only Macho Muñoz MD Work Phone: Start: 01-12-2023 End: 01-12-2023 CALCIUM, IONIC (POC) Chase Peguero MD Work Phone: Start: 01-12-2023 End: 01-12-2023 CREATININE W/GFR POINT OF CARE Chase Peguero MD Work Phone: Start: 01-12-2023 End: 01-12-2023 ELECTROLYTES PLUS Chase Linda Work Phone: Start: 01-12-2023 End: 01-12-2023 LACTIC ACID,POINT OF CARE Chase mejía MD Work Phone: Start: 01-12-2023 End: 01-12-2023 VENOUS BLOOD GAS, POINT OF CARE Chase Peguero MD Work Phone: Start: 09-21-2022 Assay of ethanol Ivan Geronimo DO Work Phone: Start: 09-21-2022 Comprehensive metabo lic panel Sylvie Geronimo DO Work Phone: Plan of Treatment Date Care Activity Detail Author Start: 08-20-2024 End: 08-20-2024 [facility] Start: 08-18-2024 [facility] Start: 08-17-2024 Referral to rehabilitation physician [facility] Start: 08-16-2024 [facility] Start: 08-15-2024 Referral to hvac refrigeration technician [facility] Start: 08-14-2024 [facility] Start: 08-13-2024 Referral to hvac refrigeration technician [facility] Start: 08-12-2024 Consultation [facility] Start: 08-12-2024 End: 08-12-2024 [facility] Start: 08-12-2024 Hospital admission [facility] Start: 08-12-2024 Bacteria identified in Blood by Culture [facility] Start: 08-12-2024 Bacteria identified in Urine by Culture [facility] Start: 08-12-2024 Insertion of Endotra cheal Airway into Trachea, Via Natural or Artificial Opening Endoscopic Insertion of Endotracheal Airway into Trachea, Via Natural or Artificial Opening Endoscopic [facility] Start: 08-12-2024 Insertion of Infusio n Device into Superior Vena Cava, Percutaneous Approach Insertion of Infusion Device into Superior Vena Cava, Percutaneous Approach [facility] Start: 08-12-2024 Respiratory Ventilat ion, Greater than 96 Consecutive Hours Respiratory Ventilation, Greater than 96 Consecutive Hours [facility] Start: 08-12-2024 Evaluation procedure [facility] Start: 06-20-2022 Influenza vaccination Flu vaccine (# 1) [facility] [employer] Start: 2021 Screening for malign ant neoplasm of cervix [facility] Start: 2012 Screening for malign ant neoplasm of cervix Pap smear [facility] Start: 2010 DTaP/Tdap/Td vaccine (1 - Tdap) DTaP/Tdap/Td vaccine (1 - Tdap) [facility] Start: 2009 Hepatitis C screening Hepatitis C sc reen [facility] Start: 2006 HIV screening HIV screen [facility] [employer] Start: 2003 Depression Screen Depression Screen [facility] [facility] Start: 1997 Pneumococcal 0-64 ye ars Vaccine (1 - PCV) Pneumococcal 0-64 years Vaccine (1 - PCV) [facility] Start: 1992 Varicella vaccine (1 of 2 - 2-dose childhood series) Varicella vaccine (1 of 2 - 2-dose childhood series) [employer] Start: 04-05-1992 COVID-19 Vaccine (#1) COVID-19 Vacci ne (#1) [employer] Continuous pulse oximetry Pulse oximetry, continuous Respiratory Care Routine Every 4hr until discontinued starting 01/13/2023 [employer] Work Phone: Comment on above: Every 4hr until disc ontinued starting 01/13/2023 Culture, Blood 1 [employer] Work Phone: EKG 12 lead EKG 12 lead ECG Routine As Needed until discontinued starting 01/13/2023 [employer] Work Phone: Comment on above: As Needed until disc ontinued starting 01/13/2023 Glucose [Mass/volume ] in Serum or Plasma POCT Glucose Point of Care Testing STAT As Needed until discontinued starting 01/12/2023 [employer] Work Phone: Comment on above: As Needed until disc ontinued starting 01/12/2023 Oxygen therapy [[facility] Data Set] Initiate Oxygen Therapy Protocol Respiratory Care Routine As Needed until discontinued starting 01/13/2023 [employer] Work Phone: Comment on above: As Needed until disc ontinued starting 01/13/2023 Patient Education Alcohol Use Di sorder (DC) Know your Meds [facility] Work Phone: Patient referral [facility] Work Phone: End: 01-13-2023 POC Blood Gas POC Blood Gas Point of Care Testing STAT One Time for 1 Occurrences starting 01/13/2023 until 01/13/2023 [employer] Work Phone: Comment on above: One Time for 1 Occur rences starting 01/13/2023 until 01/13/2023 End: 01-12-2023 POC Blood Gas and Chemistry POC Blood Gas and Chemistry Point of Care Testing STAT One Time for 1 Occurrences starting 01/12/2023 until 01/12/2023 [employer] Work Phone: Comment on above: One Time for 1 Occur rences starting 01/12/2023 until 01/12/2023 End: 01-14-2023 PREVIOUS SPECIMEN [employer] Phone: Comment on above: Once for 1 Occurrenc es starting 01/14/2023 until 01/14/2023 End: 09-21-2022 Urinalysis with Reflex to Culture Urinalysis with Reflex to Culture Lab STAT One Time for 1 Occurrences starting 09/21/2022 until 09/21/2022 [employer] Phone: Comment on above: One Time for 1 Occur rences starting 09/21/2022 until 09/21/2022 End: 09-21-2022 Urine Drug Screen Urine Drug Screen Lab STAT One Time for 1 Occurrences starting 09/21/2022 until 09/21/2022 [employer] Phone: Comment on above: One Time for 1 Occur rences starting 09/21/2022 until 09/21/2022 Payers Date Payer Category Payer Self-pay 2024 Unknown [id number] 2022 Private Health Insurance [id number] 2019 Private Health Insurance [id number] 1990 Unknown [id number] 1990 Unknown [id number] 1990 Unknown [id number] 2.16.8 [id number] 1990 Unknown [id number] 2.16.8 40.1.519802.3.579.2.983 1990 Unknown [id number] 2.16.8 40.1.111733.3.579.2.983 1990 Unknown [id number] 2.16.8 40.1.814188.3.579.2.983 1990 Unknown [id number] 2.16.8 40.1.432800.3.579.2.983 1990 Unknown [id number] 2.16.8 40.1.293852.3.579.2.983 1990 Unknown [id number] 2.16.8 40.1.466689.3.579.2.983 1990 Unknown [id number] 2.16.8 40.1.494902.3.579.2.983 1990 Unknown [id number] 2.16.8 40.1.807331.3.579.2.983 1990 Unknown [id number] 2.16.8 40.1.109004.3.579.2.983 1990 Unknown [id number] 2.16.8 40.1.044658.3.579.2.983 1990 Unknown [id number] 2.16.8 40.1.064125.3.579.2.983 1990 Unknown [id number] 2.16.8 40.1.338508.3.579.2.983 Unknown [id number] 2.16.8 [id number] Social History Date Type Detail Facility Start: 09-21-2022 Tobacco smoking status ALIS Smokes tobacco daily [facility] Phone: History of tobacco use Cigarette Smoker [facility] Phone: Start: 09-21-2022 Tobacco use and exposure User of smokeless tobacco [facility] Phone: Start: 09-21-2022 End: 01-12-2023 Alcohol intake Current drinker of alcohol (finding) [facility] Phone: Start: 09-21-2022 End: 01-12-2023 Alcohol intake [facility] Phone: Start: 09-22-2022 End: 01-13-2023 History SDOH Alcohol Frequency 5 [facility] Work Phone: Start: 1990 Sex Assigned At Not on file [facility] Work Phone: Start: 09-11-2022 End: 01-12-2023 Exposure to SARS-CoV-2 (event) Not sure [facility] Work Phone: Start: 01-13-2023 History SDOH Alcohol Std Drinks 1 [facility] Work Phone: Start: 01-13-2023 History SDOH Alcohol Binge 4 [facility] Work Phone: Sex Assigned At Sex Assigned At [facility] Start: 08-12-2024 End: 08-19-2024 Tobacco smoking status NHIS Unknown if ever smoked [facility] Start: 1990 Sex Assigned At Female [facility] NEGATED: Highlighted row [facility] Goals Date Patient Goal Desired Activity /State Functional Status Date Assessment Result Facility 08-21-2024 Functional status Patient at Baseline [facility] Work Phone: Mental Status Date Assessment Result Facility 08-21-2024 Cognitive function Cognitive Sta tus Patient at Baseline [facility] Work Phone: Clinical Notes 09-21-2022 to 08-20-2024 Note Date & Type Note Facility 08-20-2024 Progress note Note Date/Time August 20, 2024 5:24pm [facility] [address] [place] [id number] Nephrology Progress Note Signed with Todd Patient: German Jacob MR#: [id number] : 1990 Acct:[id number] Age/Sex: 33 / F Adm Date: 4 Loc: Room: [address] [place] [address] Type: ADM IN Attending Dr: Chidi Rick MD Copies to: ~ ADDENDUM1 Since renal function is improving, will discontinue Navarro catheter. Increase activities as tolerated. Addendum Documented By: MD Collette Zaragoza 08/20/241724 Addendum Signed By: <Electronically signed by MD Collette Zaragoza> 08/20/241724 Date of Service: 08/20/2024 Subjective Subjective Narrative: Patient is a 33-year-old female with a past medical history of bulimia, polysubstance abuse including EtOH, tobacco, IV drug use, THC who presented to the emergency department after being found down by fianc?. Patient was recentlydischarged from a detox facility for alcohol approximately 5 days ago. She was there for 1 week. She was prescribed Vivitrol on discharge from the facility. Patient's fianc? states that she was in her normal state of health when they went to bed Monday night. When he awoke Monday morning he found her on the couch obtunded and minimally responsive. He states the patient often times willbinge and purge overnight. He heard gurgling breathing sounds and noticed foaming out of her mouth and subsequently called EMS. In the emergency department patient was initially awake and responsive and oriented to name per ER note. She then became hypoxemic requiring nonrebreather and was noted to be hypotensive and tachycardic. She was tried on BiPAP but gradually became increasingly agitated with subsequent hypoxemia and increased confusion. Patient was intubated and then self extubated requiring reintubation again. Thesecond intubation was noted to have a cuff leak and patient was intubated for third time. Chest x-ray revealed diffuse primarily perihilar infiltrate with CTscan revealing multifocal bilateral infiltrates, with the left side being worse than the right. A right IJ central venous catheter was placed as well. Labs notable for leukocytosis with white count of 20.1. BUN/creatinine this morning is elevated at 32/2.9 from initial 24/1.71 on admission. Calcium is dropped to 6.6 from 8.4. Lactic acid is elevated at 4.1. Troponin was elevatedat 176. Urine culture positive for E. coli. Nephrology is consulted for MOIRA and electrolyte management. Interim history Patient is up in the chair. Blood pressure improving stable 140s over 90s. Shedid require vasopressors initially. She still mildly confused however mental function slowly improving. No tremors. Gabapentin was stopped. She did receive 1 dose of furosemide 2 days ago. Creatinine down to 1.64 mg/dL. Potassium down to 3.2 with decreased oral intake. Exam Physical Exam Vital Signs: Temp Pulse Resp BP Pulse Ox O2 Del Method O2 Flow Rate 37.2 C 53 L 23 147/90 H 99 Room Air 2 08/20/24 16:00 08/20/24 16:00 08/20/24 16:00 08/20/24 16:00 08/20/24 16:00 08/20/24 16:00 08/18/24 06:00 FiO2 30 08/17/24 10:00 Narrative: General: Appears comfortable and not in distress Heart: S1-S2, no rub Lung: Bilateral air entry, no wheezing or crackles Abdomen: Soft, positive bowel sounds Extremities: No edema, no cyanosis Head: Atraumatic, normocephalic Neck: No JVD or visible mass Skin: No rashes , warm to touch PATIENT MANAGER: Awake, alert, pleasantly, confused. She follows simple commands. Musculoskeletal: No swelling or limitation of movement of the large joints Objective Intake and Output I&O: Intake & Output 08/17/24 08/18/24 08/19/24 08/20/24 23:59 23:59 23:59 23:59 Intake Total 750 / 750 1710 / 1710 640 / 640 1050 / 1050 Output Total 4750 / 4750 2350 / 2350 2375 / 2375 1750 / 1750 Balance -4000 / -4000 -640 / -640 -1735 / -1735 -700 / -700 Weight 100.6 kg 94.6 kg 94.1 kg 94 kg Meds and Allergies Meds: Active Medications Acetaminophen (Acetaminophen 325 Mg Tablet) 650 mg PO Q6HR PRN PRN Reason: Pain Scale 1 - 3 or fever Stop: 08/12/25 18:07 Last Admin: 08/20/24 11:12 Dose: 650 mg Acetaminophen/Butalbital/Caffeine (Butalb/Acetamin/Caffeine 50-325-40 1 Tab Tablet) 1 tab PO ONCE PRN PRN Reason: headache Stop: 08/20/25 01:43 Clonidine HCl (Clonidine 0.2 Mg Tablet) 0.2 mg PO Q6H PRN PRN Reason: Hypertension, withdrawal sx Stop: 08/18/25 23:03 Last Admin: 08/20/24 00:05 Dose: 0.2 mg Gabapentin (Gabapentin 800 Mg Tablet) 800 mg PO Q12HR [facility] Stop: 08/17/25 20:59 Last Admin: 08/19/24 08:37 Dose: 800 mg Heparin Sodium (Porcine) (Heparin 5,000 Unit/Ml Vial) 5,000 unit SUBCUT Q8HR [facility] Stop: 08/12/25 21:59 Last Admin: 08/20/24 14:46 Dose: 5,000 unit Hydralazine HCl (Hydralazine 20 Mg/Ml Vial) 10 mg IV-PUSH Q4H PRN PRN Reason: SBP > 170 Stop: 08/20/25 01:10 Last Admin: 08/20/24 01:27 Dose: 10 mg Magnesium Sulfate (Magnesium Sulf 2gm-*Swfi*) 2 gm in 50 mls @ 25 mls/hr IV DAILY PRN PRN Reason: Magnesium Level < 1.7 Stop: 08/12/25 18:07 Last Infusion: 08/13/24 07:46 Dose: Infused Sodium Chloride (0.9% Sodium Chloride 500 Ml) 500 mls @ 20 mls/hr IV .Q24H PRN PRN Reason: cvp Stop: 08/14/25 01:14 Ertapenem (Invanz) 1 gm in 100 mls @ 200 mls/hr IV Q24H [facility] Stop: 08/21/24 10:29 Last Infusion: 08/20/24 11:20 Dose: Infused Nicotine (Nicotine Patch 21 Mg/24hr 1 Each Patch.Td24) 1 each TRANSDERML DAILY [facility] Stop: 09/28/24 09:01 Last Admin: 08/20/24 08:45 Dose: Not Given Ondansetron HCl (Ondansetron 4 Mg/2 Ml Vial) 4 mg IV-PUSH Q8H PRN PRN Reason: Nausea And Vomiting Stop: 08/12/25 18:07 Pantoprazole Sodium (Pantoprazole 40 Mg Vial) 40 mg IV-PUSH DAILY [facility] Stop: 08/13/25 08:59 Last Admin: 08/20/24 08:46 Dose: 40 mg Potassium Chloride (Potassium Chloride Er 20 Meq Tab.Er.Prt) 40 meq PO DAILY PRN PRN Reason: Hypokalemia Stop: 08/12/25 18:07 Last Admin: 08/20/24 06:31 Dose: 40 meq Sodium Chloride (Sodium Chloride 0.9 % 10 Ml Syringe) 0 ml IV-PUSH QSHIFT [facility] Stop: 08/12/25 21:59 Last Admin: 08/20/24 14:47 Dose: 10 ml Sodium Chloride (Sodium Chloride 0.9 % 10 Ml Vial.Pf) 10 ml INJECTION PRN PRN PRN Reason: Dilution Stop: 08/12/25 19:10 Last Admin: 08/20/24 08:46 Dose: 10 ml Sodium Chloride (Sodium Chloride 0.9 % 10 Ml Syringe) 10 ml IV-PUSH PRN PRN PRN Reason: Flush Stop: 08/12/25 19:10 Allergies No Known Allergies Allergy (Verified 08/12/24 10:09) Results - Nephrology Labs 08/20/24 04:53 08/20/24 04:53 Labs: 08/20/24 04:53 BUN 25 Creatinine 1.64 H Phosphorus 3.6 Albumin 2.9 L Radiology Impressions Impressions - last 24 hours: Any impression(s) listed above is documentation that was entered by the reading physician into a diagnostic report(s) for German Jacob. I have reviewed the report(s) and am incorporating any findings in the treatment plan of this patient where applicable. A&P - Nephrology Assessment/Plan (1) MOIRA (acute kidney injury): Assessment/Problem Details: She had oliguric MOIRA in the setting of low blood pressure that did improve. Patient has good urine output, he had only 1 dose of furosemide. Serum creatinine is down to 1.64 mg/dL. She was admitted with creatinine 1.7 mg/dL on08/16. Baseline creatinine is unknown. (2) Altered mental status: Assessment/Problem Details: Mental function did improve with resolution of infection. She is off gabapentin. (3) Acute hypoxemic respiratory failure: Assessment/Problem Details: She was found to have a bilateral infiltrate possibly due to the aspiration. Patient was successfully extubated on 08/17 (4) Sepsis with hypotension: Assessment/Problem Details: She has a positive urine culture for E. coli. She initially has hypertension and was getting with aggressive fluid resuscitation. Blood pressure improved with hydration (5) Hypophosphatemia: Assessment/Problem Details: She has hypophosphatemia due to the refeeding syndrome. (6) Anemia: Assessment/Problem Details: She has anemia with thrombocytopenia in the setting of infection. Hemoglobin and platelet count are improving. (7) Hypernatremia: Assessment/Problem Details: Improving with adequate hydration. Plan * IV fluid was stopped. Increase oral intake as tolerated. * Continue potassium chloride 40 mEq as needed for potassium less than 3.5. * Patient still on ertapenem 1 g every 12 hours for aspiration pneumonia. * Will continue to monitor renal function and electrolytes. Monitor input output daily. Documented By: Collette Zaragoza MD 08/20/241719 Signed By: <Electronically signed by MD Collette Zaragoza> 08/20/241723 [facility] Work Phone: 1([phone]) 620-561110-01-2024 Progress note Author Chidi Rick [facility] August 20, 2024 2:56am Note Date/Time August 19, 2024 7:52pm [facility] [address] [place] [address] Hospitalist Progress Note Signed Patient: German Jacob MR#: [id number] : 1990 Acct:[id number] Age/Sex: 33 / F Adm Date: 4 Loc: Room: [address] [place] [address] Type: ADM IN Attending Dr: Chidi Rick MD Copies to: ~ Date of Service: 08/19/2024 Subjective Subjective Narrative: Assessment And Plan 33-year-old female with PMH of bulimia, polysubstance abuse(EtOH, tobacco, history of IVDU, THC) who presented to the emergency department after being found down Acute respiratory failure with hypoxia Possible Aspiration pneumonia E Coli UTI The patient currently on room air sputum culture pending Remain on Invanz with plan to switch to oral Move out ICU if there is bed MOIRA Cr down ot 2 Nephrology was consulted, recommendation appreciated. Agree with holding gabapentin Poly-substance Abuse outpatient follow up [facility] HPI: As Above, Pt resting in bed. feeling better. Denies any chest pain, SOB Chronic diseases: Unless mentioned Above, Essential home medications have been continued. DVT Px: Addressed Disposition: DC in 1-2 days Plan of care Discussed with: the medical team, the patient L Exam Physical Exam Vital Signs: Temp Pulse Resp BP Pulse Ox O2 Del Method O2 Flow Rate 37.1 C 65 21 130/63 98 Room Air 2 08/19/24 16:00 08/19/24 18:43 08/19/24 18:43 08/19/24 18:43 08/19/24 18:43 08/19/24 18:43 08/18/24 06:00 FiO2 30 08/17/24 10:00 Narrative: GEN: NAD, Cooperative NECK: ? JVD LUNGS: CTA CV: nl S1 S2; no M/R/G, ABD: Soft, ND, NT, + BS, EXT: No peripheral edema, No calf muscle tenderness NEURO: ? FND. PSYCH: nl affect, AOx3 Objective Lab Results 08/19/24 04:43 08/19/24 04:43 Meds Allergies and Active Meds Allergies No Known Allergies Allergy (Verified 08/12/24 10:09) Active Meds: Active Medications Generic Name Dose Route Start Last Admin Trade Name Freq PRN Reason Stop Dose Admin Acetaminophen 650 mg 08/12/24 18:08 08/19/24 17:20 Acetaminophen 325 Mg Tablet PO 08/12/25 18:07 650 mg Q6HR PRN Administration Pain Scale 1 - 3 or fever Clonidine HCl 0.2 mg 08/18/24 23:04 08/19/24 00:06 Clonidine 0.2 Mg Tablet PO 08/18/25 23:03 0.2 mg Q6H PRN Administration Hypertension, withdrawal sx Gabapentin 800 mg 08/17/24 21:00 08/19/24 08:37 Gabapentin 800 Mg Tablet PO 08/17/25 20:59 800 mg Q12HR [facility] Administration Heparin Sodium (Porcine) 5,000 unit 08/12/24 22:00 08/19/24 14:13 Heparin 5,000 Unit/Ml Vial SUBCUT 08/12/25 21:59 5,000 unit Q8HR [facility] Administration Magnesium Sulfate 2 gm in 50 mls @ 25 mls/hr 08/12/24 18:08 08/13/24 07:46 Magnesium Sulf 2gm-*Swfi* IV 08/12/25 18:07 Infused DAILY PRN Infusion Magnesium Level < 1.7 Sodium Chloride 500 mls @ 20 mls/hr 08/14/24 01:23 0.9% Sodium Chloride 500 Ml IV 08/14/25 01:14 .Q24H PRN cvp Ertapenem 1 gm in 100 mls @ 200 mls/hr 08/14/24 10:00 08/19/24 10:00 Invanz IV 08/21/24 10:29 200 mls/hr Q24H [facility] Administration Nicotine 1 each 08/18/24 12:15 08/19/24 08:38 Nicotine Patch 21 Mg/24hr 1 Each Patch.Td24 TRANSDERML 09/28/24 09:01 1 each DAILY [facility] Administration Ondansetron HCl 4 mg 08/12/24 18:08 Ondansetron 4 Mg/2 Ml Vial IV-PUSH 08/12/25 18:07 Q8H PRN Nausea And Vomiting Pantoprazole Sodium 40 mg 08/13/24 09:00 08/19/24 08:36 Pantoprazole 40 Mg Vial IV-PUSH 08/13/25 08:59 40 mg DAILY [facility] Administration Potassium Chloride 40 meq 08/12/24 18:08 08/19/24 11:15 Potassium Chloride Er 20 Meq Tab.Er.Prt PO 08/12/25 18:07 40 meq DAILY PRN Administration Hypokalemia Sodium Chloride 0 ml 08/12/24 22:00 08/19/24 14:46 Sodium Chloride 0.9 % 10 Ml Syringe IV-PUSH 08/12/25 21:59 10 ml QSHIFT [facility] Administration Sodium Chloride 10 ml 08/12/24 19:11 08/19/24 08:36 Sodium Chloride 0.9 % 10 Ml Vial.Pf INJECTION 08/12/25 19:10 10 ml PRN PRN Administration Dilution Sodium Chloride 10 ml 08/12/24 19:11 Sodium Chloride 0.9 % 10 Ml Syringe IV-PUSH 08/12/25 19:10 PRN PRN Flush A&P - Hospitalist Assessment/Plan (1) Sepsis: (2) Acute hypoxemic respiratory failure: (3) Aspiration pneumonia: (4) MOIRA (acute kidney injury): Plan Documented By: Chidi Rick MD 08/19/241951 Signed By: <Electronically signed by Chidi Rick MD> 08/20/[address] [facility] Work Phone: 1(782) 822-258010-01-2024 Progress note Author Robertsonali Mila [facility] August 19, 2024 10:29pm Note Date/Time August 19, 2024 10:29pm [facility] [address] [place], [place] [id number] Nephrology Progress Note Signed Patient: German Jacob MR#: [id number] : 1990 Acct:[id number] Age/Sex: 33 / F Adm Date: 4 Loc: Room: [address] [place] [address] Type: ADM IN Attending Dr: Chidi Rick MD Copies to: ~ Date of Service: 08/19/2024 Subjective Subjective Narrative: Patient is a 33-year-old female with a past medical history of bulimia, polysubstance abuse including EtOH, tobacco, IV drug use, THC who presented to the emergency department after being found down by fianc?. Patient was recentlydischarged from a detox facility for alcohol approximately 5 days ago. She was there for 1 week. She was prescribed Vivitrol on discharge from the facility. Patient's fianc? states that she was in her normal state of health when they went to bed Monday night. When he awoke Monday morning he found her on the couch obtunded and minimally responsive. He states the patient often times willbinge and purge overnight. He heard gurgling breathing sounds and noticed foaming out of her mouth and subsequently called EMS. In the emergency department patient was initially awake and responsive and oriented to name per ER note. She then became hypoxemic requiring nonrebreather and was noted to be hypotensive and tachycardic. She was tried on BiPAP but gradually became increasingly agitated with subsequent hypoxemia and increased confusion. Patient was intubated and then self extubated requiring reintubation again. Thesecond intubation was noted to have a cuff leak and patient was intubated for third time. Chest x- ray revealed diffuse primarily perihilar infiltrate with CTscan revealing multifocal bilateral infiltrates, with the left side being worse than the right. A right IJ central venous catheter was placed as well. Labs notable for leukocytosis with white count of 20.1. BUN/creatinine this morning is elevated at 32/2.9 from initial 24/1.71 on admission. Calcium is dropped to 6.6 from 8.4. Lactic acid is elevated at 4.1. Troponin was elevatedat 176. Urine culture positive for E. coli. Nephrology is consulted for MOIRA and electrolyte management. Interim history Patient stayed in the ICU. She is awake however she still confused. She has decreased oral intake. Patient has intermittent tremors. She is on high-dose gabapentin 800 mg twice aday. Blood pressure did improve. She initially required vasopressors but blood pressure improved with the IV fluid resuscitation. She was weaned off of the vasopressors and given IV Lasix to optimize her respiratory status for extubation. Renal function is improving and she is making adequate output. Exam Physical Exam Vital Signs: Temp Pulse Resp BP Pulse Ox O2 Del Method O2 Flow Rate 36.8 C 53 L 25 H 160/93 H 98 Room Air 2 08/19/24 20:00 08/19/24 20:00 08/19/24 20:00 08/19/24 20:00 08/19/24 20:00 08/19/24 20:00 08/18/24 06:00 FiO2 30 08/17/24 10:00 Narrative: General: Appears comfortable and not in distress Heart: S1-S2, no rub Lung: Bilateral air entry, no wheezing or crackles Abdomen: Soft, positive bowel sounds Extremities: No edema, no cyanosis Head: Atraumatic, normocephalic Neck: No JVD or visible mass Skin: No rashes , warm to touch PATIENT MANAGER: Awake, alert, pleasantly, confused. She follows simple commands. Musculoskeletal: No swelling or limitation of movement of the large joints Objective Intake and Output I&O: Intake & Output 08/16/24 08/17/24 08/18/24 08/19/24 23:59 23:59 23:59 23:59 Intake Total 1900 / 1900 750 / 750 1710 / 1710 400 / 400 Output Total 4450 / 4450 4750 / 4750 2350 / 2350 1550 / 1550 Balance -2550 / -2550 -4000 / -4000 -640 / -640 -1150 / -1150 Weight 103 kg 100.6 kg 94.6 kg 94.1 kg Meds and Allergies Meds: Active Medications Acetaminophen (Acetaminophen 325 Mg Tablet) 650 mg PO Q6HR PRN PRN Reason: Pain Scale 1 - 3 or fever Stop: 08/12/25 18:07 Last Admin: 08/19/24 17:20 Dose: 650 mg Clonidine HCl (Clonidine 0.2 Mg Tablet) 0.2 mg PO Q6H PRN PRN Reason: Hypertension, withdrawal sx Stop: 08/18/25 23:03 Last Admin: 08/19/24 00:06 Dose: 0.2 mg Gabapentin (Gabapentin 800 Mg Tablet) 800 mg PO Q12HR [facility] Stop: 08/17/25 20:59 Last Admin: 08/19/24 08:37 Dose: 800 mg Heparin Sodium (Porcine) (Heparin 5,000 Unit/Ml Vial) 5,000 unit SUBCUT Q8HR [facility] Stop: 08/12/25 21:59 Last Admin: 08/19/24 21:34 Dose: 5,000 unit Magnesium Sulfate (Magnesium Sulf 2gm-*Swfi*) 2 gm in 50 mls @ 25 mls/hr IV DAILY PRN PRN Reason: Magnesium Level < 1.7 Stop: 08/12/25 18:07 Last Infusion: 08/13/24 07:46 Dose: Infused Sodium Chloride (0.9% Sodium Chloride 500 Ml) 500 mls @ 20 mls/hr IV .Q24H PRN PRN Reason: cvp Stop: 08/14/25 01:14 Ertapenem (Invanz) 1 gm in 100 mls @ 200 mls/hr IV Q24H [facility] Stop: 08/21/24 10:29 Last Admin: 08/19/24 10:00 Dose: 200 mls/hr Nicotine (Nicotine Patch 21 Mg/24hr 1 Each Patch.Td24) 1 each TRANSDERML DAILY [facility] Stop: 09/28/24 09:01 Last Admin: 08/19/24 08:38 Dose: 1 each Ondansetron HCl (Ondansetron 4 Mg/2 Ml Vial) 4 mg IV-PUSH Q8H PRN PRN Reason: Nausea And Vomiting Stop: 08/12/25 18:07 Pantoprazole Sodium (Pantoprazole 40 Mg Vial) 40 mg IV-PUSH DAILY [facility] Stop: 08/13/25 08:59 Last Admin: 08/19/24 08:36 Dose: 40 mg Potassium Chloride (Potassium Chloride Er 20 Meq Tab.Er.Prt) 40 meq PO DAILY PRN PRN Reason: Hypokalemia Stop: 08/12/25 18:07 Last Admin: 08/19/24 11:15 Dose: 40 meq Sodium Chloride (Sodium Chloride 0.9 % 10 Ml Syringe) 0 ml IV-PUSH QSHIFT [facility] Stop: 08/12/25 21:59 Last Admin: 08/19/24 21:38 Dose: 10 ml Sodium Chloride (Sodium Chloride 0.9 % 10 Ml Vial.Pf) 10 ml INJECTION PRN PRN PRN Reason: Dilution Stop: 08/12/25 19:10 Last Admin: 08/19/24 08:36 Dose: 10 ml Sodium Chloride (Sodium Chloride 0.9 % 10 Ml Syringe) 10 ml IV-PUSH PRN PRN PRN Reason: Flush Stop: 08/12/25 19:10 Allergies No Known Allergies Allergy (Verified 08/12/24 10:09) Results - Nephrology Labs 08/19/24 04:43 08/19/24 04:43 Labs: 08/19/24 04:43 BUN 28 H Creatinine 2.04 H Phosphorus 3.1 Albumin 3.2 L Radiology Impressions Impressions - last 24 hours: Any impression(s) listed above is documentation that was entered by the reading physician into a diagnostic report(s) for German Jacob. I have reviewed the report(s) and am incorporating any findings in the treatment plan of this patient where applicable. A&P - Nephrology Assessment/Plan (1) MOIRA (acute kidney injury): Assessment/Problem Details: She had oliguric MOIRA in the setting of low blood pressure that did improve. Blood pressure is up to 160s. She has good urine output with furosemide. (2) Altered mental status: Assessment/Problem Details: Patient is continued to be confused. She has intermittent tremors possibly related to gabapentin. (3) Acute hypoxemic respiratory failure: Assessment/Problem Details: She was found to have a bilateral infiltrate possibly due to the aspiration. Patient was successfully extubated on 08/17 (4) Sepsis with hypotension: Assessment/Problem Details: She has a positive urine culture for E. coli. She initially has hypertension and was getting with aggressive fluid resuscitation. Blood pressure improved with hydration (5) Hypophosphatemia: Assessment/Problem Details: She has hypophosphatemia due to the refeeding syndrome. (6) Anemia: Assessment/Problem Details: She has anemia with thrombocytopenia in the setting of infection. Hemoglobin and platelet count are improving. (7) Hypernatremia: Assessment/Problem Details: Improving with adequate hydration. Plan * Will hold gabapentin as may contribute to confusion and tremors in the setting of MOIRA. * IV fluid was stopped. Increase oral intake as tolerated. * Continue potassium chloride 40 mEq as needed for potassium less than 3.5. * Patient still on ertapenem 1 g every 12 hours for aspiration pneumonia. * Will continue to monitor renal function and electrolytes. Monitor input output daily. Documented By: Collette Zaragoza MD 08/19/242219 Signed By: <Electronically signed by MD Collette Zaragoza> 08/19/242228 [facility] Work Phone: 1(755) 220-322509-30-2024 Progress note Author Dora Hong [facility] August 19, 2024 5:24pm Note Date/Time August 19, 2024 5:24pm [facility] [address] [place] [address] Pulmonology Progress Note Signed Patient: German Jacob MR#: [id number] : 1990 Acct:[id number] Age/Sex: 33 / F Adm Date: 4 Loc: Room: [address] [place] [address] Type: ADM IN Attending Dr: Chidi Rick MD Copies to: ~ Date of Service: 08/19/2024 Subjective Subjective Narrative: - remains on RA however still with hallucinations, BP remains elevated Exam Physical Exam Vital Signs: Temp Pulse Resp BP Pulse Ox O2 Del Method O2 Flow Rate 98.8 F 61 19 158/98 H 97 Room Air 2 08/19/24 16:00 08/19/24 17:00 08/19/24 17:00 08/19/24 17:00 08/19/24 17:00 08/19/24 17:00 08/18/24 06:00 FiO2 30 08/17/24 10:00 Const Other: Gen: ill appearing not in respiratory distress HENT: EOMI PERRL no thrush Neck: supple no JVD CVS: RRR -m/r/g Lungs: CTAB no wheeze no rhonchi Abd: soft non tender Ext: no LE edema good cap refill Neuro: non focal motor and sensory exam Objective Intake and Output I&O - Last 24 Hours: Intake & Output 08/19/24 08/19/24 08/19/24 07:59 15:59 23:59 Intake Total 400 / 400 Output Total 875 / 1550 675 / 1550 Balance -875 / -1150 -275 / -1150 Weight 207 lb 7.28 oz Labs 08/19/24 04:43 08/19/24 04:43 Assessment/Plan Assessment/Plan (1) Acute hypoxemic respiratory failure: (2) Sepsis: (3) Altered mental status: (4) MOIRA (acute kidney injury): Plan - remains on RA, BP now on the high side, MOIRA improving - defer rest of management to hospitalist and nephrology - will sign off pls call with questions Time spent with patient Time Spent With Patient (min): 25 Documented By: Dora Hong MD [id number] Signed By: <Electronically signed by Dora Hong MD> 08/19/244 [facility] Work Phone: 1(832) 862-541509-30-2024 Consult note Author Macho Adan [facility] August 19, 2024 2:29pm Note Date/Time August 19, 2024 9:22am [facility] [address] [place] [address] Physiatry (Rehab) Consult Note Signed Patient: German Jacob MR#: [id number] : 1990 Acct:[id number] Age/Sex: 33 / F Adm Date: 4 Loc: Room: [address] [place] [address] Type: ADM IN Attending Dr: Chidi Rick MD Copies to: MD Chidi Fishman MD NO FAMILY PHYSICIAN~ HPI Consult Date: 08/19/24 Requesting Physician: Mike Verduzco MD Primary Care Provider: NO FAMILY PHYSICIAN Consult Narrative Reason for consult: Evaluation for inpatient rehab HPI: Ms. Jacob is a 33 year old female PMH of bulimia, polysubstance abuse including: EtOH, tobacco, history of IVDU, THC who presented to the hospital after being found down by fiance. The patient very agitated when she arrived to the ED and was intubated in the due to respiratory failure. PEr chart review, the patient had recently been in a detox facility for alcohol about 4 days priorto admission. The patients deepali provided history that he found her obtunded and minimally responsive in the morning after going to bed in normal health. The patient was started on IV antibiotics due to concern for aspiration pneumonia, possibly community acquired pneumonia. Was also found to have a resistant E. coli UTI. She was also found to have an MOIRA on admission, likely acute tubular injury and septic shock. Kidney function improved. Patient was able to be extubated. The patient lives with her fiance in a ranch style home with 3 NORMA. Has participated with therapy. Total assist. The patient was seen and evaluated today. Lying in bed. Lethargic although does open her eyes and answer questions appropriately. Very weak. I discussed therapy options with the patient. She notes that she wants to go home. Currently not appropriate for DC home. Review of Systems Review of Systems All other systems reviewed & are negative unless noted below or in HPI [facility] Medical History (Updated 08/19/24 @ 14:20 by Macho Adan MD) No pertinent past medical history Surgical History (Updated 08/12/24 @ 10:16 by Jacques Logan RN) No pertinent past surgical history Family History (Updated 03/06/23 @ 15:41 by Provider Conversion) Grandparent Legacy FamHx Relation: Maternal Grand Mother Cancer Legacy FamHx Relation: Maternal Grand Mother; Legacy FamHx Problem: Diagnosed with Cancer Heart disease Legacy FamHx Relation: Maternal Grand Mother Social History Smoking Status: Unknown if ever smoked Meds Medications and Allergies Allergies No Known Allergies Allergy (Verified 08/12/24 10:09) Home Medications clonidine HCl 0.1 mg tablet 0.1 mg PO QHS 08/17/24 [History Confirmed 08/17/24] gabapentin 800 mg tablet 800 mg PO QID 08/17/24 [History Confirmed 08/17/24] hydroxyzine HCl 50 mg tablet 50 mg PO QID PRN anxiety 08/17/24 [History Confirmed 08/17/24] omeprazole 40 mg capsule,delayed release 40 mg PO DAILY 08/17/24 [History Confirmed 08/17/24] ondansetron HCl 4 mg tablet 4 mg PO BID 08/17/24 [History Confirmed 08/17/24] propranolol 10 mg tablet 10 mg PO TID PRN PRN 08/17/24 [History Confirmed 08/17/24] zolpidem 10 mg tablet 10 mg PO QHS 08/17/24 [History Confirmed 08/17/24] Exam Physical Exam Vital Signs: Temp Pulse Resp BP Pulse Ox O2 Del Method O2 Flow Rate 97.4 F L 50 L 19 170/93 H 99 Room Air 2 08/19/24 05:00 08/19/24 07:50 08/19/24 07:50 08/19/24 07:50 08/19/24 07:50 08/19/24 08:00 08/18/24 06:00 FiO2 30 08/17/24 10:00 Narrative: Constitutional: Lying in bed. Sleepy. Answers questions and follows commands appropriately HEENT: Dry mucous membranes Cardiovascular: RRR, no M/R/G, normal S1 and S2, no JVD Respiratory: Lungs clear to auscultation bilaterally, no wheezes, rales or rhonchi GI: Soft, normoactive bowel sounds : Navarro catheter in place draining clear yellow urine Neuro: Oriented to self. States that she is in detox. Knows month and year. lethargic, but awake Extremities: No clubbing, cyanosis or edema Psych: Restless, lethargic Results - Phys. Rehab Labs Labs: Laboratory Results - last 24 hr 08/17/24 08/18/24 08/19/24 05:50 04:20 04:43 Corrected WBC 9.0 Uncorrected WBC Count 9.0 RBC 3.23 L Hgb 10.6 L Hct 31.6 L MCV 97.8 MCH 32.8 MCHC 33.5 RDW 15.8 H Plt Count 144 L MPV 7.9 Neut % (Auto) 55.0 Lymph % (Auto) 29.9 Hancock % (Auto) 12.6 Eos % (Auto) 1.9 Baso % (Auto) 0.6 Nucleat RBC Rel Count 0.2 Neut # (Auto) 5.0 Lymph # (Auto) 2.7 Hancock # (Auto) 1.1 H Eos # (Auto) 0.2 Baso # (Auto) 0.1 FiO2 30 PHA Creatinine Clear 47.49 Sodium 142 Potassium 3.4 L Chloride 108 H Carbon Dioxide 26.3 Anion Gap 11.1 BUN 28 H Creatinine 2.04 H Est GFR (CKD-EPI) 32.629 Glucose 82 Calcium 8.2 L Phosphorus 3.1 Magnesium 1.9 Albumin 3.2 L Assessment/Plan (1) Altered mental status: (2) Acute hypoxemic respiratory failure: (3) Aspiration pneumonia: (4) UTI (urinary tract infection): (5) MOIRA (acute kidney injury): (6) Sepsis with hypotension: (7) Impaired mobility and activities of daily living: Plan This is a 33 y/o female who presented to the hospital after being found down at home. Required intubation due to acute hypoxic respiratory failure. H/o polysubstance abuse, had just left detox. Has been treated for a UTI and likely aspiration pneumonia. -The patient is very debilitated and weak. She also is lethargic and very sleepy -When medically appropriate, the patient will likely need skilled therapy services. I would recommend a SNF at discharge. I am not sure she will be agreeable to this. Given her age, she may improve to a point while in the hospital that DC home could be reasonable -Continue early mobilization and OOB therapy. I did place a ST consult as well for cog eval as well as bedside swallow eval and treat -Thanks for the consult Patient was personally seen by me, Dr. Adan, on the day of encounter, reviewed the history and the relevant portions of the chart, including current orders, allied health and practice management consultant notes, labs/imaging and performed mckeon elements of exam and I formulated the plan of care and facilitated the medical decision making. I completed a substantive portion of this encounter, the medical decision makingportion of this note in its entirety, including Allied health note review, nursing note review, practice management consultant note review, discussion with nursing and case management, and more than 50% of my time was spent on counseling and coordination of care, time spent 65 minutes Documented By: Macho Adan MD [id number] Signed By: <Electronically signed by Macho Adan MD> 08/19/[address] [facility] Work Phone: 1(100) 595-684809-30-2024 Progress note Author Mike Verduzco [facility] August 18, 2024 11:28pm Note Date/Time August 18, 2024 11:04pm [facility] [address] [place] [address] Hospitalist Progress Note Signed Patient: German Jacob MR#: [id number] : 1990 Acct:[id number] Age/Sex: 33 / F Adm Date: 4 Loc: Room: [address] [place] [address] Type: ADM IN Attending Dr: Mike Verduzco MD Copies to: ~ Date of Service: 08/18/2024 Subjective Subjective Narrative: Patient seen and assessed at bedside today. She is somewhat disoriented, and bedside nurse notes that she is 2 assist with transfers. She is not fully coherent and her blood pressures have been elevated above 180 systolic. Exam Physical Exam Vital Signs: Temp Pulse Resp BP Pulse Ox O2 Del Method O2 Flow Rate 98.3 F 64 19 181/102 H 97 Room Air 2 08/18/24 20:00 08/18/24 22:00 08/18/24 22:00 08/18/24 22:00 08/18/24 22:00 08/18/24 22:00 08/18/24 06:00 FiO2 30 08/17/24 10:00 Narrative: Constitutional: Young WF, sitting in bed, restless HEENT: Dry mucous membranes Cardiovascular: RRR, no M/R/G, normal S1 and S2, no JVD Respiratory: Lungs clear to auscultation bilaterally, no wheezes, rales or rhonchi GI: Soft, normoactive bowel sounds : Navarro catheter in place draining clear yellow urine Neuro: AAO times person only, lethargic, but awake Extremities: No clubbing, cyanosis or edema Psych: Restless, lethargic Objective Lab Results 08/18/24 04:20 08/18/24 04:20 Meds Allergies and Active Meds Allergies No Known Allergies Allergy (Verified 08/12/24 10:09) Active Meds: Active Medications Generic Name Dose Route Start Last Admin Trade Name Freq PRN Reason Stop Dose Admin Acetaminophen 650 mg 08/12/24 18:08 08/18/24 09:21 Acetaminophen 325 Mg Tablet PO 08/12/25 18:07 650 mg Q6HR PRN Administration Pain Scale 1 - 3 or fever Gabapentin 800 mg 08/17/24 21:00 08/18/24 21:27 Gabapentin 800 Mg Tablet PO 08/17/25 20:59 800 mg Q12HR FELIPE Administration Heparin Sodium (Porcine) 5,000 unit 08/12/24 22:00 08/18/24 21:27 Heparin 5,000 Unit/Ml Vial SUBCUT 08/12/25 21:59 5,000 unit Q8HR FELIPE Administration Magnesium Sulfate 2 gm in 50 mls @ 25 mls/hr 08/12/24 18:08 08/13/24 07:46 Magnesium Sulf 2gm-*Swfi* IV 08/12/25 18:07 Infused DAILY PRN Infusion Magnesium Level < 1.7 Sodium Chloride 500 mls @ 20 mls/hr 08/14/24 01:23 0.9% Sodium Chloride 500 Ml IV 08/14/25 01:14 .Q24H PRN cvp Ertapenem 1 gm in 100 mls @ 200 mls/hr 08/14/24 10:00 08/18/24 09:21 Invanz IV 08/21/24 10:29 200 mls/hr Q24H FELIPE Administration Nicotine 1 each 08/18/24 12:15 08/18/24 14:53 Nicotine Patch 21 Mg/24hr 1 Each Patch.Td24 TRANSDERML 09/28/24 09:01 1 each DAILY FELIPE Administration Ondansetron HCl 4 mg 08/12/24 18:08 Ondansetron 4 Mg/2 Ml Vial IV-PUSH 08/12/25 18:07 Q8H PRN Nausea And Vomiting Pantoprazole Sodium 40 mg 08/13/24 09:00 08/18/24 09:21 Pantoprazole 40 Mg Vial IV-PUSH 08/13/25 08:59 40 mg DAILY FELIPE Administration Potassium Chloride 40 meq 08/12/24 18:08 Potassium Chloride Er 20 Meq Tab.Er.Prt PO 08/12/25 18:07 DAILY PRN Hypokalemia Sodium Chloride 0 ml 08/12/24 22:00 08/18/24 21:27 Sodium Chloride 0.9 % 10 Ml Syringe IV-PUSH 08/12/25 21:59 20 ml QSHIFT FELIPE Administration Sodium Chloride 10 ml 08/12/24 19:11 08/18/24 09:21 Sodium Chloride 0.9 % 10 Ml Vial.Pf INJECTION 08/12/25 19:10 10 ml PRN PRN Administration Dilution Sodium Chloride 10 ml 08/12/24 19:11 Sodium Chloride 0.9 % 10 Ml Syringe IV-PUSH 08/12/25 19:10 PRN PRN Flush A&P - Hospitalist Assessment/Plan (1) Sepsis: (2) Acute hypoxemic respiratory failure: (3) Aspiration pneumonia: (4) MOIRA (acute kidney injury): Plan Acute respiratory failure with hypoxia Aspiration pneumonia UTI Septic Shock Respiratory status significantly improved and patient is down to room air. She is off of vasopressor support and has been sitting in the chair for a lot of theday. He is eating, but is very significantly physically deconditioned -Remains on IV ertapenem and azithromycin -ICU management and care MOIRA Improved. In the setting of septic shock and likely acute tubular injury. -Defer further diuretics to nephrology and critical care teams -Continue to treat infections as above -Maintain MAP greater than 65 -Nephrology following, strict intake and output -Monitor renal function closely Poly-substance Abuse Both patient's mother and fianc? note that patient has had issues with alcohol, remote IV opioids, mushrooms, others. Has high tolerance for sedating medications. 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 Work Phone: 1(186) 412-963709-29-2024 Progress note Author Rolo Perez [facility] August 18, 2024 12:10pm Note Date/Time August 18, 2024 12:10pm [facility] [address] [place] [address] Nephrology Progress Note Signed Patient: German Jacob MR#: [id number] : 1990 Acct:[id number] Age/Sex: 33 / F Adm Date: 4 Loc: Room: [address] [place] [address] Type: ADM IN Attending Dr: Mike Verduzco MD Copies to: ~ Date of Service: 08/18/2024 Subjective Subjective Narrative: Patient is a 33-year-old female with a past medical history of bulimia, polysubstance abuse including EtOH, tobacco, IV drug use, THC who presented to the emergency department after being found down by fianc?. Patient was recentlydischarged from a detox facility for alcohol approximately 5 days ago. She was there for 1 week. She was prescribed Vivitrol on discharge from the facility. Patient's fianc? states that she was in her normal state of health when they went to bed Monday. When he awoke Monday morning he found her on the couch obtunded and minimally responsive. He states the patient often times willbinge and purge overnight. He heard gurgling breathing sounds and noticed foaming out of her mouth and subsequently called EMS. In the emergency department patient was initially awake and responsive and oriented to name per ER note. She then became hypoxemic requiring nonrebreather and was noted to be hypotensive and tachycardic. She was tried on BiPAP but gradually became increasingly agitated with subsequent hypoxemia and increased confusion. Patient was intubated and then self extubated requiring reintubation again. Thesecond intubation was noted to have a cuff leak and patient was intubated for third time. Chest x- ray revealed diffuse primarily perihilar infiltrate with CTscan revealing multifocal bilateral infiltrates, with the left side being worse than the right. A right IJ central venous catheter was placed as well. Labs notable for leukocytosis with white count of 20.1. BUN/creatinine this morning is elevated at 32/2.9 from initial 24/1.71 on admission. Calcium is dropped to 6.6 from 8.4. Lactic acid is elevated at 4.1. Troponin was elevatedat 176. Urine culture positive for E. coli. Nephrology is consulted for MOIRA and electrolyte management. Interim history Patient was seen examined at bedside and case was discussed with bedside RN. Bedside RN reported that that she is confused and having hallucinations. She has MOIRA due to the septic shock. She initially required vasopressors but blood pressure improved with the IV fluid resuscitation. She was weaned off of the vasopressors and given IV Lasix to optimize her respiratory status for extubation. Renal function is improving and she is making adequate output. She was successfully extubated yesterday and currently on room air. Exam Physical Exam Vital Signs: Temp Pulse Resp BP Pulse Ox O2 Del Method O2 Flow Rate 98.6 F 66 20 161/85 H 96 Room Air 2 08/18/24 08:00 08/18/24 10:00 08/18/24 10:00 08/18/24 10:00 08/18/24 10:00 08/18/24 10:00 08/18/24 06:00 FiO2 30 08/17/24 10:00 Narrative: General: Appears comfortable and not in distress Heart: S1-S2, no rub Lung: Bilateral air entry, no wheezing or crackles Abdomen: Soft, positive bowel sounds Extremities: No edema, no cyanosis Head: Atraumatic, normocephalic Ear: No external ear redness or tenderness Eyes: No pallor or redness Neck: No JVD or visible mass Skin: No rashes , warm to touch PATIENT MANAGER: Awake, alert, pleasantly confused. Musculoskeletal: No swelling or limitation of movement of the large joints Objective Intake and Output I&O: Intake & Output 08/15/24 08/16/24 08/17/24 08/18/24 23:59 23:59 23:59 23:59 Intake Total 1500 / 1500 1900 / 1900 750 / 750 1010 / 1010 Output Total 1275 / 1275 4450 / 4450 4750 / 4750 800 / 800 Balance 225 / 225 -2550 / -2550 -4000 / -4000 210 / 210 Weight 100 kg 103 kg 100.6 kg 94.6 kg Meds and Allergies Meds: Active Medications Acetaminophen (Acetaminophen 325 Mg Tablet) 650 mg PO Q6HR PRN PRN Reason: Pain Scale 1 - 3 or fever Stop: 08/12/25 18:07 Last Admin: 08/18/24 09:21 Dose: 650 mg Gabapentin (Gabapentin 800 Mg Tablet) 800 mg PO Q12HR [facility] Stop: 08/17/25 20:59 Last Admin: 08/18/24 09:21 Dose: 800 mg Heparin Sodium (Porcine) (Heparin 5,000 Unit/Ml Vial) 5,000 unit SUBCUT Q8HR [facility] Stop: 08/12/25 21:59 Last Admin: 08/18/24 06:24 Dose: 5,000 unit Magnesium Sulfate (Magnesium Sulf 2gm-*Swfi*) 2 gm in 50 mls @ 25 mls/hr IV DAILY PRN PRN Reason: Magnesium Level < 1.7 Stop: 08/12/25 18:07 Last Infusion: 08/13/24 07:46 Dose: Infused Sodium Chloride (0.9% Sodium Chloride 500 Ml) 500 mls @ 20 mls/hr IV .Q24H PRN PRN Reason: cvp Stop: 08/14/25 01:14 Ertapenem (Invanz) 1 gm in 100 mls @ 200 mls/hr IV Q24H FELIPE Stop: 08/21/24 10:29 Last Admin: 08/18/24 09:21 Dose: 200 mls/hr Ondansetron HCl (Ondansetron 4 Mg/2 Ml Vial) 4 mg IV-PUSH Q8H PRN PRN Reason: Nausea And Vomiting Stop: 08/12/25 18:07 Pantoprazole Sodium (Pantoprazole 40 Mg Vial) 40 mg IV-PUSH DAILY FELIPE Stop: 08/13/25 08:59 Last Admin: 08/18/24 09:21 Dose: 40 mg Potassium Chloride (Potassium Chloride Er 20 Meq Tab.Er.Prt) 40 meq PO DAILY PRN PRN Reason: Hypokalemia Stop: 08/12/25 18:07 Sodium Chloride (Sodium Chloride 0.9 % 10 Ml Syringe) 0 ml IV-PUSH QSHIFT FELIPE Stop: 08/12/25 21:59 Last Admin: 08/18/24 06:24 Dose: 10 ml Sodium Chloride (Sodium Chloride 0.9 % 10 Ml Vial.Pf) 10 ml INJECTION PRN PRN PRN Reason: Dilution Stop: 08/12/25 19:10 Last Admin: 08/18/24 09:21 Dose: 10 ml Sodium Chloride (Sodium Chloride 0.9 % 10 Ml Syringe) 10 ml IV-PUSH PRN PRN PRN Reason: Flush Stop: 08/12/25 19:10 Allergies No Known Allergies Allergy (Verified 08/12/24 10:09) Results - Nephrology Labs 08/18/24 04:20 08/18/24 04:20 Labs: 08/18/24 04:20 BUN 31 H Creatinine 2.28 H D Phosphorus 3.0 Albumin 3.1 L Radiology Impressions Impressions - last 24 hours: Any impression(s) listed above is documentation that was entered by the reading physician into a diagnostic report(s) for German Jacob. I have reviewed the report(s) and am incorporating any findings in the treatment plan of this patient where applicable. A&P - Nephrology Assessment/Plan (1) MOIRA (acute kidney injury): Assessment/Problem Details: She likely has oliguric ATN in setting of septic shock. She has no evidence of obstructive uropathy on CAT scan. Her renal function is declining. (2) Acute hypoxemic respiratory failure: Assessment/Problem Details: She was found to have a bilateral infiltrate possibly due to the aspiration. Pulmonary has been following patient. (3) Sepsis with hypotension: Assessment/Problem Details: She has a positive urine culture for E. coli. She initially has hypertension and was getting with aggressive fluid resuscitation. Blood pressure improved with hydration (4) Hypomagnesemia: Assessment/Problem Details: She has hypomagnesemia likely malnutrition. (5) Hypophosphatemia: Assessment/Problem Details: She has hypophosphatemia due to the refeeding syndrome. (6) Anemia: Assessment/Problem Details: She has anemia with thrombocytopenia. She has a normal haptoglobin and mildly elevated LDH so suspicion is low for TMA. (7) Thrombocytopenia: Assessment/Problem Details: She has a thrombocytopenia the due to the sepsis or TMA (8) Hypernatremia: Plan * Stop IV fluid. Encourage oral intake. * Will give potassium chloride 40 mEq p.o. x 1 dose. * Continue IV antibiotic as per the ICU team. Pharmacy to dose medication based on EGFR. * Continue vent management as per the pulmonary team. * Will continue to monitor renal function and electrolytes. Monitor input output daily. * Monitor H&H and transfuse as needed to keep the hemoglobin greater than 7 g/dL. Documented By: Rolo Perez MD 08/18/24 1206 Signed By: <Electronically signed by Rolo Perez MD> 08/18/24 1210 [facility] Work Phone: 1(794) 782-612509-29-2024 Progress note Author Basejade Gunter [facility] August 18, 2024 11:12am Note Date/Time August 18, 2024 11:12am [facility] [address] [place] [address] Pulmonology Progress Note Signed Patient: German Jacob MR#: [id number] : 1990 Acct:[id number] Age/Sex: 33 / F Adm Date: 4 Loc: Room: [address] [place] [address] Type: ADM IN Attending Dr: Mike Verduzco MD Copies to: ~ Date of Service: 08/18/2024 Subjective Subjective Narrative: Tolerated off ventilator and today on room air. Remains somewhat lethargic and with some hallucinations. Exam Physical Exam Vital Signs: Temp Pulse Resp BP Pulse Ox O2 Del Method O2 Flow Rate 98.6 F 66 20 161/85 H 96 Room Air 2 08/18/24 08:00 08/18/24 10:00 08/18/24 10:00 08/18/24 10:00 08/18/24 10:00 08/18/24 10:00 08/18/24 06:00 FiO2 30 08/17/24 10:00 Narrative: General: Somewhat sleepy but easily arouses, appears in no acute respiratory distress Neck: Supple. Pulmonary: Diminished breath sounds to both lung goyal without wheezing. Cardiovascular: Regular rate and rhythm. No murmurs Abdomen: Soft, nontender and nondistended. Extremities: No edema. Objective Intake and Output I&O - Last 24 Hours: Intake & Output 08/17/24 08/18/24 08/18/24 23:59 07:59 15:59 Intake Total 1010 / 1010 Output Total 550 / 4750 800 / 800 Balance -550 / -4000 210 / 210 Weight 94.6 kg Labs 08/18/24 04:20 08/18/24 04:20 Microbiology Micro: Microbiology 3 08/12/24 10:35 Blood Culture - Final Blood - Right Antecubital NO GROWTH 5 DAYS 08/12/24 10:42 Blood Culture - Final Blood NO GROWTH 5 DAYS Assessment/Plan Assessment/Plan (1) Acute hypoxemic respiratory failure: Plan: With likely aspiration pneumonia. Improving with current treatment and tolerated extubation relatively well. Completed a course of azithromycin. I will continue with her tapping up her total of 8 days as previously planned to cover for UTI as well. Monitor respiratory status closely. (2) Sepsis: Plan: Remains off pressors with improving blood pressure. Unclear source with UTI versus pneumonia with urine culture positive for ESBL. I will continue with the ertapenem for a total of 8 days. (3) Altered mental status: Plan: Likely multifactorial. Improving with current treatment. Awaiting psychiatry input. (4) MOIRA (acute kidney injury): Plan: Likely secondary to ATN from sepsis and hypotension. Improving urine output and BUN/creatinine. No need for further diuresis from a pulmonary standpoint and will defer further management to nephrology team. Plan Hospital day #5, right internal jugular central venous catheter day #6 (will attempt to remove today as the patient has 2 peripheral lines) Okay to regular medical floor with a sitter from my standpoint. Documented By: Russell Gunter MD 08/18/24 1109 Signed By: <Electronically signed by Russell Gunter MD> 08/18/24 1112 [facility] Work Phone: 1(572) 433-116909-28-2024 Progress note Author Mike Verduzco [facility] August 17, 2024 2:55pm Note Date/Time August 17, 2024 2:43pm [facility] [address] [place] [address] Hospitalist Progress Note Signed Patient: German Jacob MR#: [id number] : 1990 Acct:[id number] Age/Sex: 33 / F Adm Date: 4 Loc: Room: [address] [place] [address] Type: ADM IN Attending Dr: Mike Verduzco MD Copies to: ~ Date of Service: 08/17/2024 Subjective Subjective Narrative: Patient has remained off of pressor support overnight. She was extubated a few hours before my assessment. She is breathing comfortably on nasal cannula oxygen. Fianc? is at bedside and patient and him are updated on the plan of care. She denies any fever/chill, chest pain, nausea/vomiting or other symptoms. Exam Physical Exam Vital Signs: Temp Pulse Resp BP Pulse Ox O2 Del Method O2 Flow Rate 98.1 F 61 17 170/103 H 96 Nasal Cannula 3 08/17/24 08:08/17/24 12:00 08/17/24 12:00 08/17/24 12:00 08/17/24 12:00 08/17/24 12:00 08/17/24 12:00 FiO2 30 08/17/24 10:00 Narrative: Constitutional: Young WF, sitting in bed, restless HEENT: Dry mucous membranes Cardiovascular: RRR, no M/R/G, normal S1 and S2, no JVD Respiratory: Lungs clear to auscultation bilaterally, no wheezes, rales or rhonchi GI: Soft, normoactive bowel sounds : Navarro catheter in place draining clear yellow urine Neuro: AAO times person only, lethargic, but awake Extremities: No clubbing, cyanosis or edema Psych: Restless, lethargic Objective Lab Results 08/17/24 04:25 08/17/24 04:25 Microbiology Results Microbiology 08/12/24 10:35 Blood - Right Antecubital Blood Culture - Final NO GROWTH 5 DAYS 08/12/24 10:42 Blood Blood Culture - Final NO GROWTH 5 DAYS Meds Allergies and Active Meds Allergies No Known Allergies Allergy (Verified 08/12/24 10:09) Active Meds: Active Medications Generic Name Dose Route Start Last Admin Trade Name Freq PRN Reason Stop Dose Admin Acetaminophen 650 mg 08/12/24 18:08 08/13/24 04:30 Acetaminophen 325 Mg Tablet PO 08/12/25 18:07 650 mg Q6HR PRN Administration Pain Scale 1 - 3 or fever Docusate Sodium 100 mg 08/12/24 12:30 08/17/24 08:36 Docusate Liquid 100 Mg/10 Ml Udc PO 08/12/25 12:29 100 mg BID FELIPE Administration Gabapentin 800 mg 08/16/24 12:00 08/17/24 09:14 Gabapentin 300 Mg/6 Ml Udc PO 08/16/25 11:59 800 mg Q12HR FELIPE Administration Heparin Sodium (Porcine) 5,000 unit 08/12/24 22:00 08/17/24 14:36 Heparin 5,000 Unit/Ml Vial SUBCUT 08/12/25 21:59 Not Given Q8HR FELIPE Midazolam HCl 100 mg in 100 mls @ 1 mls/hr 08/12/24 14:15 08/17/24 14:36 Versed IV 02/08/25 14:14 Not Given .Q24H FELIPE Protocol 1 MG/HR Magnesium Sulfate 2 gm in 50 mls @ 25 mls/hr 08/12/24 18:08 08/13/24 07:46 Magnesium Sulf 2gm-*Swfi* IV 08/12/25 18:07 Infused DAILY PRN Infusion Magnesium Level < 1.7 Sodium Chloride 500 mls @ 20 mls/hr 08/14/24 01:23 0.9% Sodium Chloride 500 Ml IV 08/14/25 01:14 .Q24H PRN cvp Ertapenem 1 gm in 100 mls @ 200 mls/hr 08/14/24 10:00 08/17/24 09:15 Invanz IV 08/21/24 10:29 200 mls/hr Q24H FELIPE Administration Propofol 1,000 mg in 100 mls @ 12 mls/hr 08/14/24 09:30 08/17/24 09:16 Diprivan IV 08/14/25 09:29 10 mcg/kg/min .Q8H20M FELIPE 6 mls/hr Titration Protocol 20 MCG/KG/MIN Dexmedetomidine HCl 400 mcg/ 100 mls @ 5.15 mls/hr 08/16/24 20:00 08/17/24 10:30 Dextrose IV 08/16/25 19:59 0 mcg/kg/hr .[id number] FELIPE 0 mls/hr Titration Protocol 0.2 MCG/KG/HR Potassium Chloride 20 meq/ 1,010 mls @ 75 mls/hr 08/17/24 12:15 08/17/24 12:45 Dextrose IV 08/17/25 12:14 75 mls/hr .[id number] FELIPE Administration Magnesium Hydroxide 30 ml 08/12/24 12:29 Magnesium Hydroxide Susp 30 Ml Udc PO 08/12/25 12:28 DAILY PRN Constipation Midazolam HCl 1 mg 08/12/24 14:03 08/12/24 14:35 Midazolam/Pf 2 Mg/2 Ml Vial IV-PUSH 02/08/25 14:02 1 mg Q15M PRN Administration Sedation goals Ondansetron HCl 4 mg 08/12/24 18:08 Ondansetron 4 Mg/2 Ml Vial IV-PUSH 08/12/25 18:07 Q8H PRN Nausea And Vomiting Pantoprazole Sodium 40 mg 08/13/24 09:00 08/17/24 08:36 Pantoprazole 40 Mg Vial IV-PUSH 08/13/25 08:59 40 mg DAILY FELIPE Administration Potassium Chloride 40 meq 08/12/24 18:08 Potassium Chloride Er 20 Meq Tab.Er.Prt PO 08/12/25 18:07 DAILY PRN Hypokalemia Propofol 0 mg 08/14/24 09:30 Propofol - Infusion Bolus 1,000 Mg/100 Ml Vial IV 08/14/25 09:29 PROTOCOL PRN Bolus Documentation Sennosides 8.8 mg 08/12/24 21:00 08/17/24 08:36 Sennosides Syrup 8.8 Mg/5 Ml Udc PO 08/12/25 20:59 8.8 mg BID FELIPE Administration Sodium Chloride 0 ml 08/12/24 22:00 08/17/24 14:36 Sodium Chloride 0.9 % 10 Ml Syringe IV-PUSH 08/12/25 21:59 40 ml QSHIFT FELIPE Administration Sodium Chloride 10 ml 08/12/24 19:11 08/17/24 08:36 Sodium Chloride 0.9 % 10 Ml Vial.Pf INJECTION 08/12/25 19:10 10 ml PRN PRN Administration Dilution Sodium Chloride 10 ml 08/12/24 19:11 Sodium Chloride 0.9 % 10 Ml Syringe IV-PUSH 08/12/25 19:10 PRN PRN Flush A&P - Hospitalist Assessment/Plan (1) Sepsis: (2) Acute hypoxemic respiratory failure: (3) Aspiration pneumonia: (4) MOIRA (acute kidney injury): Plan Acute respiratory failure with hypoxia Aspiration pneumonia UTI Septic Shock Extubated today. Patient breathing comfortably on nasal cannula on my assessment. Has no need for vasopressor support at this time Patient had access to Ambien, clonidine and gabapentin at her disposal, prior tobeing found unresponsive. Multifocal pneumonia is visualized on chest imaging. Endorgan dysfunction of MOIRA likely from acute tubular injury. -IV ertapenem and azithromycin -ICU management and care MOIRA Hypocalcemia Hypokalemia Hypophosphatemia Stable. In the setting of septic shock and likely acute tubular injury. -Defer further diuretics to nephrology and critical care teams -Continue to treat infections as above -Maintain MAP greater than 65 -Nephrology following, strict intake and output -Monitor renal function closely Poly-substance Abuse Both patient's mother and fianc? note that patient has had issues with alcohol, remote IV opioids. Has high tolerance for sedating medications. 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 -Continuing on home gabapentin CODE STATUS: Full code Documented By: Mike Verduzco MD [id number] Signed By: <Electronically signed by Mike Verduzco MD> 08/17/24 1455 [facility] Work Phone: 1(807) 755-727209-28-2024 Progress note Author Russell Gunter [facility] August 17, 2024 12:05pm Note Date/Time August 17, 2024 12:05pm [facility] [address] [place] [address] Pulmonology Progress Note Signed Patient: German Jacob MR#: [id number] : 1990 Acct:[id number] Age/Sex: 33 / F Adm Date: 4 Loc: Room: [address] [place] [address] Type: ADM IN Attending Dr: Mike Verduzco MD Copies to: ~ Date of Service: 08/17/2024 Subjective Subjective Narrative: Remains critically ill on the ventilator with improved ET tube secretions today. High tube feeding residual her tube feeding were held. Remains off pressors with improving urine output. Sedated with Precedex and propofol. Exam Physical Exam Vital Signs: Temp Pulse Resp BP Pulse Ox O2 Del Method O2 Flow Rate 97.7 F 57 L 17 164/90 H 98 Mechanical Ventilation 15 08/17/24 04:00 08/17/24 09:16 08/17/24 07:00 08/17/24 09:16 08/17/24 07:00 08/17/24 07:00 08/15/24 18:58 FiO2 30 08/17/24 07:56 Narrative: General: Sedated, appears in no acute respiratory distress Neck: Supple. Pulmonary: Good breath sounds to both lung goyal without wheezes. Cardiovascular: Regular rate and rhythm. No murmurs Abdomen: Soft, nontender and nondistended. Extremities: Mild edema. Objective Intake and Output I&O - Last 24 Hours: Intake & Output 08/16/24 08/17/24 08/17/24 23:59 07:59 15:59 Intake Total 580 / 1900 550 / 650 100 / 650 Output Total 1000 / 4450 800 / 800 Balance -420 / -2550 -250 / -150 100 / -150 Weight 100.6 kg Labs 08/17/24 04:25 08/17/24 04:25 Microbiology Micro: Microbiology 3 08/12/24 10:35 Blood Culture - Final Blood - Right Antecubital NO GROWTH 5 DAYS 08/12/24 10:42 Blood Culture - Final Blood NO GROWTH 5 DAYS Imaging and Cardiology Chest x-ray: Status: image reviewed by me (Chest x-ray with right lower lobe atelectasis but overall with improved interstitial infiltrate/effusion.) Assessment/Plan Assessment/Plan (1) Acute hypoxemic respiratory failure: Plan: With likely aspiration pneumonia receiving antibiotics with ertapenem and azithromycin. Improved ET tube secretions. Chest x-ray from today with mild right lower lobe atelectasis but overall with improved interstitial infiltrates. Weaned off Versed overnight. We have held her propofol today and kept her on Precedex drip. She is following simple commands. I placed her on CPAP 5 over 530% and she tolerated well. Now extubated and tolerating nasal cannula well. Will continue to wean down her FiO2 as tolerated. (2) Sepsis: Plan: Now off pressors with improving blood pressure. Unclear source with UTI versus pneumonia with urine culture positive for ESBL. I will continue with the ertapenem and azithromycin. (3) Altered mental status: Plan: Likely multifactorial. Improving with current treatment. Will attempt to wean down her Precedex slowlyas tolerated. (4) MOIRA (acute kidney injury): Plan: Likely secondary to ATN from sepsis and hypotension. Improving urine output and BUN/creatinine. Tolerated 1 dose of Lasix yesterday with good urine output and improving renal function. Today with mild hypernatremia. Will start on D5W as she is not tolerating tube feeding and continue with gentlediuresis as tolerated with close monitoring of her renal function and electrolytes. Discussed with renal team. Plan Hospital day #5, ventilator day #5, right internal jugular central venous catheter day #5 Critical care time was 32 minutes. Documented By: Russell Gunter MD 08/17/24 1200 Signed By: <Electronically signed by Russell Gunter MD> 08/17/24 1106 [facility] Work Phone: [phone]) 992-600009-28-2024 Progress note Author Rolo Perez [facility] August 17, 2024 11:36am Note Date/Time August 17, 2024 10:10am [facility] [address] [place] [address] Nephrology Progress Note Signed Patient: German Jacob MR#: [id number] : 1990 Acct:[id number] Age/Sex: 33 / F Adm Date: 4 Loc: Room: 8Y9770-2 Type: ADM IN Attending Dr: Mike Verduzco MD Copies to: ~ Date of Service: 08/17/2024 Subjective Subjective Narrative: Patient is a 33-year-old female with a past medical history of bulimia, polysubstance abuse including EtOH, tobacco, IV drug use, THC who presented to the emergency department after being found down by fianc?. Patient was recentlydischarged from a detox facility for alcohol approximately 5 days ago. She was there for 1 week. She was prescribed Vivitrol on discharge from the facility. Patient's fianc? states that she was in her normal state of health when they went to bed Monday night. When he awoke Monday morning he found her on the couch obtunded and minimally responsive. He states the patient often times willbinge and purge overnight. He heard gurgling breathing sounds and noticed foaming out of her mouth and subsequently called EMS. In the emergency department patient was initially awake and responsive and oriented to name per ER note. She then became hypoxemic requiring nonrebreather and was noted to be hypotensive and tachycardic. She was tried on BiPAP but gradually became increasingly agitated with subsequent hypoxemia and increased confusion. Patient was intubated and then self extubated requiring reintubation again. Thesecond intubation was noted to have a cuff leak and patient was intubated for third time. Chest x- ray revealed diffuse primarily perihilar infiltrate with CTscan revealing multifocal bilateral infiltrates, with the left side being worse than the right. A right IJ central venous catheter was placed as well. This morning patient remains intubated and sedated. Labs notable for leukocytosis with white count of 20.1. BUN/creatinine this morning is elevated at 32/2.9 from initial 24/1.71 on admission. Calcium is dropped to 6.6 from 8.4. Lactic acid is elevated at 4.1. Troponin was elevated at 176. Urine culture positive for E. coli. Nephrology is consulted for MOIRA and electrolyte management. Interim history Patient was seen examined at bedside and case was discussed with ICU team and bedside RN. Bedside RN reported the patient has a large gastric residual so shestopped the tube feeding. Patient was given IV Lasix and had a good urine output. Microbiology Lab Technician has ordered the CPAP trial. Exam Physical Exam Vital Signs: Temp Pulse Resp BP Pulse Ox O2 Del Method O2 Flow Rate 97.7 F 57 L 17 164/90 H 98 Mechanical Ventilation 15 08/17/24 04:00 08/17/24 09:16 08/17/24 07:00 08/17/24 09:16 08/17/24 07:00 08/17/24 07:00 08/15/24 18:58 FiO2 30 08/17/24 07:56 Narrative: General: Appears comfortable and not in distress Heart: S1-S2, no rub Lung: Bilateral air entry, no wheezing or crackles Abdomen: Soft, positive bowel sounds Extremities: Trace edema, no cyanosis Head: Atraumatic, normocephalic Ear: No external ear redness or tenderness Eyes: No pallor or redness Neck: No JVD or visible mass Skin: No rashes , warm to touch PATIENT MANAGER: Intubated and sedated Musculoskeletal: No swelling or limitation of movement of the large joints Objective Intake and Output I&O: Intake & Output 08/14/24 08/15/24 08/16/24 08/17/24 23:59 23:59 23:59 23:59 Intake Total 2775 / 2775 1500 / 1500 1900 / 1900 650 / 650 Output Total 775 / 775 1275 / 1275 4450 / 4450 800 / 800 Balance 1999 / 1999 225 / 225 -2550 / -2550 -150 / -150 Weight 100 kg 100 kg 103 kg 100.6 kg Meds and Allergies Meds: Active Medications Acetaminophen (Acetaminophen 325 Mg Tablet) 650 mg PO Q6HR PRN PRN Reason: Pain Scale 1 - 3 or fever Stop: 08/12/25 18:07 Last Admin: 08/13/24 04:30 Dose: 650 mg Albuterol (Albuterol Hfa 200 Puff/18 Gm Inhaler) 6 puff VENT Q6HR FELIPE Stop: 08/13/25 00:00 Last Admin: 08/17/24 05:44 Dose: 6 puff Chlorhexidine Gluconate (Chlorhexidine Gluconate 0.12% 15 Ml Udc) 15 ml MUCOUS MEM BID FELIPE Stop: 08/12/25 20:59 Last Admin: 08/17/24 08:36 Dose: 15 ml Docusate Sodium (Docusate Liquid 100 Mg/10 Ml Udc) 100 mg PO BID [facility] Stop: 08/12/25 12:29 Last Admin: 08/17/24 08:36 Dose: 100 mg Gabapentin (Gabapentin 300 Mg/6 Ml Udc) 800 mg PO Q12HR FELIPE Stop: 08/16/25 11:59 Last Admin: 08/17/24 09:14 Dose: 800 mg Heparin Sodium (Porcine) (Heparin 5,000 Unit/Ml Vial) 5,000 unit SUBCUT Q8HR FELIPE Stop: 08/12/25 21:59 Last Admin: 08/17/24 05:48 Dose: 5,000 unit Midazolam HCl (Versed) 100 mg in 100 mls @ 1 mls/hr IV .Q24H [facility]; Protocol Stop: 02/08/25 14:14 Last Titration: 08/16/24 23:42 Dose: 0 mg/hr, 0 mls/hr Magnesium Sulfate (Magnesium Sulf 2gm-*Swfi*) 2 gm in 50 mls @ 25 mls/hr IV DAILY PRN PRN Reason: Magnesium Level < 1.7 Stop: 08/12/25 18:07 Last Infusion: 08/13/24 07:46 Dose: Infused Sodium Chloride (0.9% Sodium Chloride 500 Ml) 500 mls @ 20 mls/hr IV .Q24H PRN PRN Reason: cvp Stop: 08/14/25 01:14 Ertapenem (Invanz) 1 gm in 100 mls @ 200 mls/hr IV Q24H [facility] Stop: 08/21/24 10:29 Last Admin: 08/17/24 09:15 Dose: 200 mls/hr Propofol (Diprivan) 1,000 mg in 100 mls @ 12 mls/hr IV .Q8H20M [facility]; Protocol Stop: 08/14/25 09:29 Last Titration: 08/17/24 09:16 Dose: 10 mcg/kg/min, 6 mls/hr Dexmedetomidine HCl 400 mcg/ (Dextrose) 100 mls @ 5.15 mls/hr IV .[id number] [facility]; Protocol Stop: 08/16/25 19:59 Last Admin: 08/17/24 09:16 Dose: 1 mcg/kg/hr, 25.75 mls/hr Potassium Chloride/Dextrose/Sod Cl (D5w-0.9 % Nacl-20 Meq Kcl) 1,000 mls @ 75 mls/hr IV .[id number] FELIPE Stop: 08/17/25 09:59 Last Admin: 08/17/24 09:53 Dose: 75 mls/hr Magnesium Hydroxide (Magnesium Hydroxide Susp 30 Ml Udc) 30 ml PO DAILY PRN PRN Reason: Constipation Stop: 08/12/25 12:28 Midazolam HCl (Midazolam/Pf 2 Mg/2 Ml Vial) 1 mg IV-PUSH Q15M PRN PRN Reason: Sedation goals Stop: 02/08/25 14:02 Last Admin: 08/12/24 14:35 Dose: 1 mg Ondansetron HCl (Ondansetron 4 Mg/2 Ml Vial) 4 mg IV-PUSH Q8H PRN PRN Reason: Nausea And Vomiting Stop: 08/12/25 18:07 Pantoprazole Sodium (Pantoprazole 40 Mg Vial) 40 mg IV-PUSH DAILY FELIPE Stop: 08/13/25 08:59 Last Admin: 08/17/24 08:36 Dose: 40 mg Potassium Chloride (Potassium Chloride Er 20 Meq Tab.Er.Prt) 40 meq PO DAILY PRN PRN Reason: Hypokalemia Stop: 08/12/25 18:07 Propofol (Propofol - Infusion Bolus 1,000 Mg/100 Ml Vial) 0 mg IV PROTOCOL PRN PRN Reason: Bolus Documentation Stop: 08/14/25 09:29 Sennosides (Sennosides Syrup 8.8 Mg/5 Ml Udc) 8.8 mg PO BID FELIPE Stop: 08/12/25 20:59 Last Admin: 08/17/24 08:36 Dose: 8.8 mg Sodium Chloride (Sodium Chloride 0.9 % 10 Ml Syringe) 0 ml IV-PUSH QSHIFT FELIPE Stop: 08/12/25 21:59 Last Admin: 08/17/24 05:50 Dose: 10 ml Sodium Chloride (Sodium Chloride 0.9 % 10 Ml Vial.Pf) 10 ml INJECTION PRN PRN PRN Reason: Dilution Stop: 08/12/25 19:10 Last Admin: 08/17/24 08:36 Dose: 10 ml Sodium Chloride (Sodium Chloride 0.9 % 10 Ml Syringe) 10 ml IV-PUSH PRN PRN PRN Reason: Flush Stop: 08/12/25 19:10 Allergies No Known Allergies Allergy (Verified 08/12/24 10:09) Results - Nephrology Labs 08/17/24 04:25 08/17/24 04:25 Labs: 08/17/24 04:25 BUN 36 H Creatinine 2.87 H Phosphorus 5.3 H Albumin 2.8 L Radiology Impressions Impressions - last 24 hours: Impressions Chest X-Ray 08/17/24 05:00 IMPRESSION: Stable chest Impression dictated by: Pasha Vora M.D.08/17/2024 6:23 AM Dictation Location: [place] [address] Any impression(s) listed above is documentation that was entered by the reading physician into a diagnostic report(s) for German Jacob. I have reviewed the report(s) and am incorporating any findings in the treatment plan of this patient where applicable. A&P - Nephrology Assessment/Plan (1) MOIRA (acute kidney injury): Assessment/Problem Details: She likely has oliguric ATN in setting of septic shock. She has no evidence of obstructive uropathy on CAT scan. Her renal function is declining. (2) Acute hypoxemic respiratory failure: Assessment/Problem Details: She was found to have a bilateral infiltrate possibly due to the aspiration. Pulmonary has been following patient. (3) Sepsis with hypotension: Assessment/Problem Details: She has a positive urine culture for E. coli. She initially has hypertension and was getting with aggressive fluid resuscitation. Blood pressure improved with hydration (4) Hypomagnesemia: Assessment/Problem Details: She has hypomagnesemia likely malnutrition. (5) Hypophosphatemia: Assessment/Problem Details: She has hypophosphatemia due to the refeeding syndrome. (6) Anemia: Assessment/Problem Details: She has anemia with thrombocytopenia. She has a normal haptoglobin and mildly elevated LDH so suspicion is low for TMA. (7) Thrombocytopenia: Assessment/Problem Details: She has a thrombocytopenia the due to the sepsis or TMA (8) Hypernatremia: Plan * Will not start free water flushes as she has large gastric residual. * Will start D5 water at 80 mL/h due to the hypernatremia * I will give Lasix 40 mg IV x 1 dose for diuresis to optimize his respiratory status. * Continue IV antibiotic as per the ICU team. Pharmacy to dose medication based on EGFR. * Continue vent management as per the pulmonary team. * Will continue to monitor renal function and electrolytes. Monitor input output daily. * Monitor H&H and transfuse as needed to keep the hemoglobin greater than 7 g/dL. Documented By: Rolo Perez MD 08/17/24 1007 Signed By: <Electronically signed by Rolo Perez MD> 08/17/24 4682 [facility] Work Phone: [phone]) [phone] Progress note Author Russell Gunter [facility] August 16, 2024 2:45pm Note Date/Time August 16, 2024 2:45pm [facility] [address] [place] [address] Pulmonology Progress Note Signed Patient: German Jacob MR#: [id number] : 1990 Acct:[id number] Age/Sex: 33 / F Adm Date: 4 Loc: Room: [address] [place] [address] Type: ADM IN Attending Dr: Mike Verduzco MD Copies to: ~ Date of Service: 08/16/2024 Subjective Subjective Narrative: Remains critically ill on the ventilator with moderate to large brownish ET tubesecretions and large overall secretions as well. Tolerating tube feeding well. Off pressors with improving urine output. Sedated with Versed and propofol. Not following commands. Exam Physical Exam Vital Signs: Temp Pulse Resp BP Pulse Ox O2 Del Method O2 Flow Rate 98.7 F 70 15 124/68 96 Mechanical Ventilation 15 08/16/24 08:00 08/16/24 13:03 08/16/24 12:37 08/16/24 13:03 08/16/24 10:00 08/16/24 10:00 08/15/24 18:58 FiO2 30 08/16/24 13:00 Narrative: General: Sedated, appears in no acute respiratory distress Neck: Supple. Pulmonary: Good breath sounds to both lung goyal without wheezes. Cardiovascular: Regular rate and rhythm. No murmurs Abdomen: Soft, nontender and nondistended. Extremities: Mild edema. Objective Intake and Output I&O - Last 24 Hours: Intake & Output 08/15/24 08/16/24 08/16/24 23:59 07:59 15:59 Intake Total 290 / 1250 630 / 830 200 / 830 Output Total 425 / 1275 450 / 450 Balance -135 / -25 180 / 380 200 / 380 Weight 103 kg Labs 08/16/24 04:45 08/16/24 04:45 Microbiology Micro: Microbiology 3 08/12/24 10:35 Blood Culture - Preliminary Blood - Right Antecubital No Growth 4 Days 08/12/24 10:42 Blood Culture - Preliminary Blood No Growth 4 Days Assessment/Plan Assessment/Plan (1) Acute hypoxemic respiratory failure: Plan: With likely aspiration pneumonia receiving antibiotics with ertapenem and azithromycin. Still with moderate to large ET tube secretions but improving. Improving oxygen requirement, now down to 30%. Still with significant agitation preventing weaning trials. Will place on gabapentin which apparently is the patient's home dose after adjusting to renal function. Attempt to switch her propofol with Precedex and wean down her Ativan and attempt to improve her agitation hopefully extubate once more oriented. (2) Sepsis: Plan: Now off pressors with improving blood pressure. Unclear source with UTI versus pneumonia with urine culture positive for ESBL. I will continue with the treponema and azithromycin. (3) Altered mental status: Plan: Likely multifactorial. Remains on high-dose sedatives with propofol and Versed drip. Will attempt adding gabapentin again and switch her propofol to Precedex. (4) MOIRA (acute kidney injury): Plan: Likely secondary to ATN from sepsis and hypotension. Overall with stabilized/slightly improved renal function over the past 24 hours with slowly improving urine output as well. Clinically with signs of volume overload. Chest x-ray with bilateral pleural effusions. Will give 1 dose of IV Lasix if okay with renal service and reevaluate based on her response and renal function. Plan Hospital day #4, ventilator day #4, right internal jugular central venous catheter day #4 Critical care time was 32 minutes. Documented By: Russell Gunter MD 08/16/24 1438 Signed By: <Electronically signed by Russell Gunter MD> 08/16/[address] [facility] Work Phone: 1(399) [phone] Progress note Author Mike Verduzco [facility] August 16, 2024 12:36pm Note Date/Time August 16, 2024 12:34pm [facility] [address] [place] [address] Hospitalist Progress Note Signed Patient: German Jacob MR#: [id number] : 1990 Acct:[id number] Age/Sex: 33 / F Adm Date: 4 Loc: Room: [address] [place] [address] Type: ADM IN Attending Dr: Mike Verduzco MD Copies to: ~ Date of Service: 08/16/2024 Subjective Subjective Narrative: No acute events noted overnight. Sedation medications adjusted to move towards Precedex and propofol. Versed being weaned down. Patient's urine output remains borderline. Creatinine is mildly improved today. Exam Physical Exam Vital Signs: Temp Pulse Resp BP Pulse Ox O2 Del Method O2 Flow Rate 99 F 79 16 123/70 99 Mechanical Ventilation 15 08/16/24 04:00 08/16/24 11:54 08/16/24 07:00 08/16/24 11:54 08/16/24 07:00 08/16/24 07:00 08/15/24 18:58 FiO2 30 08/16/24 07:00 Narrative: Constitutional: Young WF, intubated, sedated, calm on sedation at this time HEENT: ET and OG tubes in place Cardiovascular: RRR, no M/R/G, normal S1 and S2, no JVD Respiratory: Lungs clear to auscultation bilaterally, no wheezes, rales or rhonchi GI: Soft, normoactive bowel sounds : Navarro catheter in place draining clear yellow urine Neuro: Intubated and sedated Extremities: No clubbing, cyanosis or edema Psych: Intubated and sedated Objective Lab Results 08/16/24 04:45 08/16/24 04:45 Microbiology Results Microbiology 08/12/24 10:35 Blood - Right Antecubital Blood Culture - Preliminary No Growth 4 Days 08/12/24 10:42 Blood Blood Culture - Preliminary No Growth 4 Days 08/13/24 11:00 Sputum - Endotrachael Aerobic Culture - Final Light Normal Respiratory Rodolfo 1 Day 08/13/24 11:00 Sputum - Endotrachael Gram Stain - Final ABG Interpretation ABG results: 08/16/24 04:35 ABG pH 7.41 ABG pCO2 38.8 ABG pO2 87.6 ABG HCO3 23.8 ABG Total CO2 25.0 ABG O2 Saturation 96.3 ABG O2 Content 6.0 L ABG Base Excess -0.8 Meds Allergies and Active Meds Allergies No Known Allergies Allergy (Verified 08/12/24 10:09) Active Meds: Active Medications Generic Name Dose Route Start Last Admin Trade Name Wilbert PRN Reason Stop Dose Admin Acetaminophen 650 mg 08/12/24 18:08 08/13/24 04:30 Acetaminophen 325 Mg Tablet PO 08/12/25 18:07 650 mg Q6HR PRN Administration Pain Scale 1 - 3 or fever Albuterol 6 puff 08/13/24 00:00 08/16/24 05:40 Albuterol Hfa 200 Puff/18 Gm Inhaler VENT 08/13/25 00:00 6 puff Q6HR FELIPE Administration Chlorhexidine Gluconate 15 ml 08/12/24 21:00 08/16/24 08:26 Chlorhexidine Gluconate 0.12% 15 Ml Udc MUCOUS MEM 08/12/25 20:59 15 ml BID FELIPE Administration Docusate Sodium 100 mg 08/12/24 12:30 08/16/24 08:26 Docusate Liquid 100 Mg/10 Ml Udc PO 08/12/25 12:29 100 mg BID FELIPE Administration Gabapentin 800 mg 08/16/24 12:00 Gabapentin 300 Mg/6 Ml Udc PO 08/16/25 11:59 Q12HR FELIPE Heparin Sodium (Porcine) 5,000 unit 08/12/24 22:00 08/16/24 06:37 Heparin 5,000 Unit/Ml Vial SUBCUT 08/12/25 21:59 5,000 unit Q8HR FELIPE Administration Midazolam HCl 100 mg in 100 mls @ 1 mls/hr 08/12/24 14:15 08/16/24 11:15 Versed IV 02/08/25 14:14 9 mg/hr .Q24H FELIPE 9 mls/hr Administration Protocol 1 MG/HR Magnesium Sulfate 2 gm in 50 mls @ 25 mls/hr 08/12/24 18:08 08/13/24 07:46 Magnesium Sulf 2gm-*Swfi* IV 08/12/25 18:07 Infused DAILY PRN Infusion Magnesium Level < 1.7 Azithromycin 500 mg in 250 mls @ 250 mls/hr 08/12/24 20:30 08/15/24 21:15 Zithromax IV 08/16/24 21:29 250 mls/hr Q24H FELIPE Administration Sodium Chloride 500 mls @ 20 mls/hr 08/14/24 01:23 0.9% Sodium Chloride 500 Ml IV 08/14/25 01:14 .Q24H PRN cvp Ertapenem 1 gm in 100 mls @ 200 mls/hr 08/14/24 10:00 08/16/24 11:54 Invanz IV 08/21/24 10:29 200 mls/hr Q24H FELIPE Administration Propofol 1,000 mg in 100 mls @ 12 mls/hr 08/14/24 09:30 08/16/24 11:15 Diprivan IV 08/14/25 09:29 30 mcg/kg/min .Q8H20M FELIPE 18 mls/hr Administration Protocol 20 MCG/KG/MIN Dexmedetomidine HCl 200 mcg/ 50 mls @ 5.15 mls/hr 08/16/24 11:00 08/16/24 11:54 Dextrose IV 08/16/25 10:59 0.2 mcg/kg/hr .Q9H43M FELIPE 5.15 mls/hr Administration Protocol 0.2 MCG/KG/HR Magnesium Hydroxide 30 ml 08/12/24 12:29 Magnesium Hydroxide Susp 30 Ml Udc PO 08/12/25 12:28 DAILY PRN Constipation Midazolam HCl 1 mg 08/12/24 14:03 08/12/24 14:35 Midazolam/Pf 2 Mg/2 Ml Vial IV-PUSH 02/08/25 14:02 1 mg Q15M PRN Administration Sedation goals Ondansetron HCl 4 mg 08/12/24 18:08 Ondansetron 4 Mg/2 Ml Vial IV-PUSH 08/12/25 18:07 Q8H PRN Nausea And Vomiting Pantoprazole Sodium 40 mg 08/13/24 09:00 08/16/24 08:26 Pantoprazole 40 Mg Vial IV-PUSH 08/13/25 08:59 40 mg DAILY FELIPE Administration Potassium Chloride 40 meq 08/12/24 18:08 Potassium Chloride Er 20 Meq Tab.Er.Prt PO 08/12/25 18:07 DAILY PRN Hypokalemia Propofol 0 mg 08/14/24 09:30 Propofol - Infusion Bolus 1,000 Mg/100 Ml Vial IV 08/14/25 09:29 PROTOCOL PRN Bolus Documentation Sennosides 8.8 mg 08/12/24 21:00 08/16/24 08:25 Sennosides Syrup 8.8 Mg/5 Ml Udc PO 08/12/25 20:59 8.8 mg BID FELIPE Administration Sodium Chloride 0 ml 08/12/24 22:00 08/16/24 06:37 Sodium Chloride 0.9 % 10 Ml Syringe IV-PUSH 08/12/25 21:59 10 ml QSHIFT FELIPE Administration Sodium Chloride 10 ml 08/12/24 19:11 08/16/24 08:26 Sodium Chloride 0.9 % 10 Ml Vial.Pf INJECTION 08/12/25 19:10 10 ml PRN PRN Administration Dilution Sodium Chloride 10 ml 08/12/24 19:11 Sodium Chloride 0.9 % 10 Ml Syringe IV-PUSH 08/12/25 19:10 PRN PRN Flush A&P - Hospitalist Assessment/Plan (1) Sepsis: (2) Acute hypoxemic respiratory failure: (3) Aspiration pneumonia: Plan Acute respiratory failure with hypoxia Aspiration pneumonia UTI Septic Shock Improved. Patient remains off of vasopressor support. Sedation medications have been adjusted. Patient had access to Ambien, clonidine and gabapentin at her disposal, prior tobeing found unresponsive. Multifocal pneumonia is visualized on chest imaging. Endorgan dysfunction of MOIRA likely from acute tubular injury. Vital signs have been more stable in the last 24 hours -Pulmonary/critical care/vent management per pulmonary team; defer timing of extubation to them -IV ertapenem and azithromycin -ICU management and care MOIRA Hypocalcemia Hypokalemia Hypophosphatemia Stable. In the setting of septic shock and likely acute tubular injury from septic shock. Received 1 dose of IV Lasix today. -Continue to treat infections as above -Maintain MAP greater than 65 -Nephrology following, strict intake and output Poly-substance Abuse Sedation adjusted due to patient having history of Vivitrol administration. Both patient's mother and fianc? note that patient has had issues with alcohol, remote IV opioids. Has high tolerance for sedating medications. 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 CODE STATUS: Full code Documented By: Mike Verduzco MD 4 [id number] Signed By: <Electronically signed by Mike Verduzco MD> 08/16/24 1236 [facility] Work Phone: [phone]) 156-579509-27-2024 Progress note Author Rolo Perez [facility] August 16, 2024 11:38am Note Date/Time August 16, 2024 11:29am [facility] [address] [place] [address] Nephrology Progress Note Signed Patient: German Jacob MR#: [id number] : 1990 Acct:[id number] Age/Sex: 33 / F Adm Date: 4 Loc: Room: [address] [place] [address] Type: ADM IN Attending Dr: Mike Verduzco MD Copies to: ~ Date of Service: 08/16/2024 Subjective Subjective Narrative: Patient is a 33-year-old female with a past medical history of bulimia, polysubstance abuse including EtOH, tobacco, IV drug use, THC who presented to the emergency department after being found down by fianc?. Patient was recentlydischarged from a detox facility for alcohol approximately 5 days ago. She was there for 1 week. She was prescribed Vivitrol on discharge from the facility. Patient's fianc? states that she was in her normal state of health when they went to bed Monday night. When he awoke Monday morning he found her on the couch obtunded and minimally responsive. He states the patient often times willbinge and purge overnight. He heard gurgling breathing sounds and noticed foaming out of her mouth and subsequently called EMS. In the emergency department patient was initially awake and responsive and oriented to name per ER note. She then became hypoxemic requiring nonrebreather and was noted to be hypotensive and tachycardic. She was tried on BiPAP but gradually became increasingly agitated with subsequent hypoxemia and increased confusion. Patient was intubated and then self extubated requiring reintubation again. Thesecond intubation was noted to have a cuff leak and patient was intubated for third time. Chest x- ray revealed diffuse primarily perihilar infiltrate with CTscan revealing multifocal bilateral infiltrates, with the left side being worse than the right. A right IJ central venous catheter was placed as well. This morning patient remains intubated and sedated. Labs notable for leukocytosis with white count of 20.1. BUN/creatinine this morning is elevated at 32/2.9 from initial 24/1.71 on admission. Calcium is dropped to 6.6 from 8.4. Lactic acid is elevated at 4.1. Troponin was elevated at 176. Urine culture positive for E. coli. Nephrology is consulted for MOIRA and electrolyte management. Interim history Patient was seen examined at bedside. Bedside and reported the pulmonary would like to have diuresis to optimize her respiratory status. Patient was also started on gabapentin by the ICU team. She continues to have a good urine output. Exam Physical Exam Vital Signs: Temp Pulse Resp BP Pulse Ox O2 Del Method O2 Flow Rate 99 F 76 16 128/76 99 Mechanical Ventilation 15 08/16/24 04:00 08/16/24 07:00 08/16/24 07:00 08/16/24 07:00 08/16/24 07:00 08/16/24 07:00 08/15/24 18:58 FiO2 30 08/16/24 07:00 Narrative: General: Appears comfortable and not in distress Heart: S1-S2, no rub Lung: Bilateral air entry, no wheezing or crackles Abdomen: Soft, positive bowel sounds Extremities: Trace edema, no cyanosis Head: Atraumatic, normocephalic Ear: No external ear redness or tenderness Eyes: No pallor or redness Neck: No JVD or visible mass Skin: No rashes , warm to touch PATIENT MANAGER: Intubated and sedated Musculoskeletal: No swelling or limitation of movement of the large joints Objective Intake and Output I&O: Intake & Output 08/13/24 08/14/24 08/15/24 08/16/24 23:59 23:59 23:59 23:59 Intake Total 4030 / 4030 2775 / 2775 1150 / 1150 630 / 630 Output Total 725 / 725 775 / 775 1275 / 1275 450 / 450 Balance 3305 / 3305 1999 / 1999 -125 / -125 180 / 180 Weight 99.4 kg 100 kg 100 kg 103 kg Meds and Allergies Meds: Active Medications Acetaminophen (Acetaminophen 325 Mg Tablet) 650 mg PO Q6HR PRN PRN Reason: Pain Scale 1 - 3 or fever Stop: 08/12/25 18:07 Last Admin: 08/13/24 04:30 Dose: 650 mg Albuterol (Albuterol Hfa 200 Puff/18 Gm Inhaler) 6 puff VENT Q6HR [facility] Stop: 08/13/25 00:00 Last Admin: 08/16/24 05:40 Dose: 6 puff Chlorhexidine Gluconate (Chlorhexidine Gluconate 0.12% 15 Ml Udc) 15 ml MUCOUS MEM BID [facility] Stop: 08/12/25 20:59 Last Admin: 08/16/24 08:26 Dose: 15 ml Docusate Sodium (Docusate Liquid 100 Mg/10 Ml Udc) 100 mg PO BID [facility] Stop: 08/12/25 12:29 Last Admin: 08/16/24 08:26 Dose: 100 mg Gabapentin (Gabapentin 300 Mg/6 Ml Udc) 800 mg PO Q6H [facility] Stop: 08/16/25 10:59 Heparin Sodium (Porcine) (Heparin 5,000 Unit/Ml Vial) 5,000 unit SUBCUT Q8HR [facility] Stop: 08/12/25 21:59 Last Admin: 08/16/24 06:37 Dose: 5,000 unit Midazolam HCl (Versed) 100 mg in 100 mls @ 1 mls/hr IV .Q24H [facility]; Protocol Stop: 02/08/25 14:14 Last Admin: 08/16/24 00:24 Dose: 10 mg/hr, 10 mls/hr Magnesium Sulfate (Magnesium Sulf 2gm-*Swfi*) 2 gm in 50 mls @ 25 mls/hr IV DAILY PRN PRN Reason: Magnesium Level < 1.7 Stop: 08/12/25 18:07 Last Infusion: 08/13/24 07:46 Dose: Infused Azithromycin (Zithromax) 500 mg in 250 mls @ 250 mls/hr IV Q24H [facility] Stop: 08/16/24 21:29 Last Admin: 08/15/24 21:15 Dose: 250 mls/hr Sodium Chloride (0.9% Sodium Chloride 500 Ml) 500 mls @ 20 mls/hr IV .Q24H PRN PRN Reason: cvp Stop: 08/14/25 01:14 Ertapenem (Invanz) 1 gm in 100 mls @ 200 mls/hr IV Q24H [facility] Last Admin: 08/15/24 09:18 Dose: 200 mls/hr Propofol (Diprivan) 1,000 mg in 100 mls @ 12 mls/hr IV .Q8H20M [facility]; Protocol Stop: 08/14/25 09:29 Last Admin: 08/16/24 06:00 Dose: 30 mcg/kg/min, 18 mls/hr Dexmedetomidine HCl 200 mcg/ (Dextrose) 50 mls @ 5.15 mls/hr IV .Q9H43M [facility]; Protocol Stop: 08/16/25 10:59 Magnesium Hydroxide (Magnesium Hydroxide Susp 30 Ml Udc) 30 ml PO DAILY PRN PRN Reason: Constipation Stop: 08/12/25 12:28 Midazolam HCl (Midazolam/Pf 2 Mg/2 Ml Vial) 1 mg IV-PUSH Q15M PRN PRN Reason: Sedation goals Stop: 02/08/25 14:02 Last Admin: 08/12/24 14:35 Dose: 1 mg Ondansetron HCl (Ondansetron 4 Mg/2 Ml Vial) 4 mg IV-PUSH Q8H PRN PRN Reason: Nausea And Vomiting Stop: 08/12/25 18:07 Pantoprazole Sodium (Pantoprazole 40 Mg Vial) 40 mg IV-PUSH DAILY [facility] Stop: 08/13/25 08:59 Last Admin: 08/16/24 08:26 Dose: 40 mg Potassium Chloride (Potassium Chloride Er 20 Meq Tab.Er.Prt) 40 meq PO DAILY PRN PRN Reason: Hypokalemia Stop: 08/12/25 18:07 Propofol (Propofol - Infusion Bolus 1,000 Mg/100 Ml Vial) 0 mg IV PROTOCOL PRN PRN Reason: Bolus Documentation Stop: 08/14/25 09:29 Sennosides (Sennosides Syrup 8.8 Mg/5 Ml Udc) 8.8 mg PO BID [facility] Stop: 08/12/25 20:59 Last Admin: 08/16/24 08:25 Dose: 8.8 mg Sodium Chloride (Sodium Chloride 0.9 % 10 Ml Syringe) 0 ml IV-PUSH QSHIFT [facility] Stop: 08/12/25 21:59 Last Admin: 08/16/24 06:37 Dose: 10 ml Sodium Chloride (Sodium Chloride 0.9 % 10 Ml Vial.Pf) 10 ml INJECTION PRN PRN PRN Reason: Dilution Stop: 08/12/25 19:10 Last Admin: 08/16/24 08:26 Dose: 10 ml Sodium Chloride (Sodium Chloride 0.9 % 10 Ml Syringe) 10 ml IV-PUSH PRN PRN PRN Reason: Flush Stop: 08/12/25 19:10 Allergies No Known Allergies Allergy (Verified 08/12/24 10:09) Results - Nephrology Labs 08/16/24 04:45 08/16/24 04:45 Labs: 08/16/24 04:45 BUN 39 H Creatinine 3.05 H Phosphorus 3.9 Albumin 2.8 L Radiology Impressions Impressions - last 24 hours: Impressions Chest X-Ray 08/16/24 05:00 IMPRESSION: CONTINUED PLEURAL-PARENCHYMAL CHANGES, DESCRIBED. Impression dictated by: Shavon Astorga M.D.08/16/2024 7:07 AM Dictation Location: [place] [address] Any impression(s) listed above is documentation that was entered by the reading physician into a diagnostic report(s) for German Jacob. I have reviewed the report(s) and am incorporating any findings in the treatment plan of this patient where applicable. A&P - Nephrology Assessment/Plan (1) MOIRA (acute kidney injury): Assessment/Problem Details: She likely has oliguric ATN in setting of septic shock. She has no evidence of obstructive uropathy on CAT scan. Her renal function is declining. (2) Acute hypoxemic respiratory failure: Assessment/Problem Details: She was found to have a bilateral infiltrate possibly due to the aspiration. Pulmonary has been following patient. (3) Sepsis with hypotension: Assessment/Problem Details: She has a positive urine culture for E. coli. She initially has hypertension and was getting with aggressive fluid resuscitation. Blood pressure improved with hydration (4) Hypomagnesemia: Assessment/Problem Details: She has hypomagnesemia likely malnutrition. (5) Hypophosphatemia: Assessment/Problem Details: She has hypophosphatemia due to the refeeding syndrome. (6) Anemia: Assessment/Problem Details: She has anemia with thrombocytopenia. She has a normal haptoglobin and mildly elevated LDH so suspicion is low for TMA. (7) Thrombocytopenia: Assessment/Problem Details: She has a thrombocytopenia the due to the sepsis or TMA Plan * I will give Lasix 40 mg IV x 1 dose for diuresis will optimize his respiratory status. * Continue IV antibiotic as per the ICU team. Pharmacy to dose medication based on EGFR. * Continue vent management as per the pulmonary team. * I would recommend to reduce the dose of the gabapentin 800 mg twice daily or lower. * Will continue to monitor renal function and electrolytes. Monitor input output daily. * Monitor H&H and transfuse as needed to keep the hemoglobin greater than 7 g/dL. Documented By: Rolo Perez MD 08/16/24 1128 Signed By: <Electronically signed by Rolo Perez MD> 08/16/24 1138 [facility] Work Phone: [phone]) 691-502409-26-2024 Progress note Author Renny Multani [facility] August 15, 2024 6:40pm Note Date/Time August 15, 2024 6:40pm [facility] [address] [place] [address] Pulmonology Progress Note Signed Patient: German Jacob MR#: [id number] : 1990 Acct:[id number] Age/Sex: 33 / F Adm Date: 4 Loc: Room: [address] [place] [address] Type: ADM IN Attending Dr: Mike Verduzco MD Copies to: ~ Date of Service: 08/15/2024 Exam Physical Exam Vital Signs: Temp Pulse Resp BP Pulse Ox O2 Del Method O2 Flow Rate 97.9 F 80 16 137/89 98 Mechanical Ventilation 15 08/15/24 18:00 08/15/24 18:06 08/15/24 18:00 08/15/24 18:06 08/15/24 18:00 08/15/24 18:00 08/15/24 16:15 FiO2 30 08/15/24 18:00 Const Nutritional Appearance: average body habitus Orientation: not alert and not awake HEENT Head: normal to inspection, normocephalic and atraumatic Ears: external ears normal Nose: external nose normal (NG tube in place) Face and sinus: normal facial exam Mouth: other (7.5 mm ID ET tube) Eyes Eyelids: eyelids normal (With glitter noted) Neck Neck: normal visual inspection and no lymphadenopathy Chest Chest palpation & inspection: normal inspection of the chest Resp Auscultation: clear to auscultation bilaterally, no rales, no rhonchi and no wheezes Cardio Rate: regular rate Rhythm: regular rhythm Heart Sounds: S1 normal, S2 normal, no gallops, no murmurs and no rubs GI Inspection: normal to inspection Palpation: soft and nontender Auscultation: hypoactive bowel sounds Rectal Exam: deferred General: deferred Skin General: no rashes or lesions noted (warm and dry) Extrem General: no pedal edema Objective Intake and Output I&O - Last 24 Hours: Intake & Output 08/15/24 08/15/24 08/15/24 07:59 15:59 23:59 Intake Total 200 / 860 660 / 860 Output Total 650 / 850 200 / 850 Balance -450 / 10 460 / 10 Weight 220 lb 7.396 oz Labs 08/15/24 04:50 08/15/24 04:50 Microbiology Micro: Microbiology 3 08/12/24 10:35 Blood Culture - Preliminary Blood - Right Antecubital No Growth 3 Days 08/12/24 10:42 Blood Culture - Preliminary Blood No Growth 3 Days 08/13/24 11:00 Aerobic Culture - Final Sputum - Endotrachael Light Normal Respiratory Rodolfo 1 Day Gram Stain - Final Assessment/Plan Assessment/Plan (1) Acute hypoxemic respiratory failure: (2) Sepsis: (3) Pneumonia: (4) Altered mental status: (5) UTI (urinary tract infection): Plan Hospital day #3, ventilator day #3, right internal jugular central venous catheter day #3 for patient found unresponsive with bilateral infiltrates with history that could certainly suggest aspiration though certainly cannot exclude possible standard community-acquired pneumonia and resistant E. coli UTI on ertapenem and azithromycin. Patient recently has been in detoxification center and has been on naloxone and ultimately patient is required heavy dose of sedation with IV midazolam infusion and propofol infusion with patient poorly responsive to fentanyl infusion. Patient has been quite agitated in the past and note worsening renal function despite hemodynamic stability. Patient certainly may be a candidate for decreasing sedation and trial of extubation, however, given the patient's worsening renal function patient is suspected to besuboptimal and her cooperation should the patient be awake and require temporaryhemodialysis catheter placement. It is reasonable to wait for either improvement in renal function or for eventual placement of temporary hemodialysis catheter before proceeding with weaning and trial of extubation. We will continue nutritional support and other supportive care. Patient is noted to be thrombocytopenic but this was not felt to be likely related to beta-lactam nor heparin-induced antiplatelet antibodies and was felt to be more likely related to the patient's initial sepsis. Workup for DIC was negative. We will continue supportive care. Documented By: Renny Multani MD [id number] Signed By: <Electronically signed by MD Renny Multani> 08/15/24 1840 [facility] Work Phone: 1(443) 944-954709-26-2024 Progress note Author Mike Verduzco [facility] August 15, 2024 3:52pm Note Date/Time August 15, 2024 3:53pm [facility] [address] [place] [address] Hospitalist Progress Note Signed Patient: German Jacob MR#: [id number] : 1990 Acct:[id number] Age/Sex: 33 / F Adm Date: 4 Loc: Room: [address] [place] [address] Type: ADM IN Attending Dr: Mike Verduzco MD Copies to: ~ Date of Service: 08/15/2024 Subjective Subjective Narrative: Patient remains off vasopressor support. Urine output remains borderline. Patient remains on minimal vent settings at this time. She is much calmer on the propofol and Versed sedation. Denies any fever/chill, chest pain, nausea/vomiting or other symptoms at this time. Exam Physical Exam Vital Signs: Temp Pulse Resp BP Pulse Ox O2 Del Method O2 Flow Rate 98.6 F 77 12 118/62 100 Mechanical Ventilation 15 08/15/24 12:00 08/15/24 15:00 08/15/24 15:08/15/24 15:08/15/24 15:08/15/24 15:08/12/24 12:14 FiO2 30 08/15/24 15:00 Narrative: Constitutional: Young WF, intubated, sedated, calm on sedation at this time HEENT: ET and OG tubes in place Cardiovascular: RRR, no M/R/G, normal S1 and S2, no JVD Respiratory: Lungs clear to auscultation bilaterally, no wheezes, rales or rhonchi GI: Soft, normoactive bowel sounds : Navarro catheter in place draining clear yellow urine Neuro: Intubated and sedated Extremities: No clubbing, cyanosis or edema Psych: Intubated and sedated Objective Lab Results 08/15/24 04:50 08/15/24 04:50 Microbiology Results Microbiology 08/12/24 10:35 Blood - Right Antecubital Blood Culture - Preliminary No Growth 3 Days 08/12/24 10:42 Blood Blood Culture - Preliminary No Growth 3 Days 08/13/24 11:00 Sputum - Endotrachael Aerobic Culture - Final Light Normal Respiratory Rodolfo 1 Day 08/13/24 11:00 Sputum - Endotrachael Gram Stain - Final ABG Interpretation ABG results: 08/15/24 03:48 ABG pH 7.39 ABG pCO2 39.8 ABG pO2 95.5 ABG HCO3 23.7 ABG Total CO2 24.9 ABG O2 Saturation 97.2 ABG O2 Content 5.8 L ABG Base Excess -1.1 Meds Allergies and Active Meds Allergies No Known Allergies Allergy (Verified 08/12/24 10:09) Active Meds: Active Medications Generic Name Dose Route Start Last Admin Trade Name Wilbert PRN Reason Stop Dose Admin Acetaminophen 650 mg 08/12/24 18:08 08/13/24 04:30 Acetaminophen 325 Mg Tablet PO 08/12/25 18:07 650 mg Q6HR PRN Administration Pain Scale 1 - 3 or fever Albuterol 6 puff 08/13/24 00:00 08/15/24 13:23 Albuterol Hfa 200 Puff/18 Gm Inhaler VENT 08/13/25 00:00 6 puff Q6HR FELIPE Administration Chlorhexidine Gluconate 15 ml 08/12/24 21:00 08/15/24 08:26 Chlorhexidine Gluconate 0.12% 15 Ml Udc MUCOUS MEM 08/12/25 20:59 15 ml BID FELIPE Administration Docusate Sodium 100 mg 08/12/24 12:30 08/15/24 08:26 Docusate Liquid 100 Mg/10 Ml Udc PO 08/12/25 12:29 100 mg BID FELIPE Administration Heparin Sodium (Porcine) 5,000 unit 08/12/24 22:00 08/15/24 14:04 Heparin 5,000 Unit/Ml Vial SUBCUT 08/12/25 21:59 5,000 unit Q8HR FELIPE Administration Midazolam HCl 100 mg in 100 mls @ 1 mls/hr 08/12/24 14:15 08/15/24 14:04 Versed IV 02/08/25 14:14 10 mg/hr .Q24H FELIPE 10 mls/hr Administration Protocol 1 MG/HR Magnesium Sulfate 2 gm in 50 mls @ 25 mls/hr 08/12/24 18:08 08/13/24 07:46 Magnesium Sulf 2gm-*Swfi* IV 08/12/25 18:07 Infused DAILY PRN Infusion Magnesium Level < 1.7 Azithromycin 500 mg in 250 mls @ 250 mls/hr 08/12/24 20:30 08/14/24 21:22 Zithromax IV 08/16/24 21:29 Infused Q24H FELIPE Infusion Sodium Chloride 500 mls @ 20 mls/hr 08/14/24 01:23 0.9% Sodium Chloride 500 Ml IV 08/14/25 01:14 .Q24H PRN cvp Ertapenem 1 gm in 100 mls @ 200 mls/hr 08/14/24 10:00 08/15/24 09:18 Invanz IV 200 mls/hr Q24H FELIPE Administration Propofol 1,000 mg in 100 mls @ 12 mls/hr 08/14/24 09:30 08/15/24 10:41 Diprivan IV 08/14/25 09:29 Not Given .Q8H20M FELIPE Protocol 20 MCG/KG/MIN Magnesium Hydroxide 30 ml 08/12/24 12:29 Magnesium Hydroxide Susp 30 Ml Udc PO 08/12/25 12:28 DAILY PRN Constipation Midazolam HCl 1 mg 08/12/24 14:03 08/12/24 14:35 Midazolam/Pf 2 Mg/2 Ml Vial IV-PUSH 02/08/25 14:02 1 mg Q15M PRN Administration Sedation goals Ondansetron HCl 4 mg 08/12/24 18:08 Ondansetron 4 Mg/2 Ml Vial IV-PUSH 08/12/25 18:07 Q8H PRN Nausea And Vomiting Pantoprazole Sodium 40 mg 08/13/24 09:00 08/15/24 08:26 Pantoprazole 40 Mg Vial IV-PUSH 08/13/25 08:59 40 mg DAILY FELIPE Administration Potassium Chloride 40 meq 08/12/24 18:08 Potassium Chloride Er 20 Meq Tab.Er.Prt PO 08/12/25 18:07 DAILY PRN Hypokalemia Propofol 0 mg 08/14/24 09:30 Propofol - Infusion Bolus 1,000 Mg/100 Ml Vial IV 08/14/25 09:29 PROTOCOL PRN Bolus Documentation Sennosides 8.8 mg 08/12/24 21:00 08/15/24 08:26 Sennosides Syrup 8.8 Mg/5 Ml Udc PO 08/12/25 20:59 8.8 mg BID FELIPE Administration Sodium Chloride 0 ml 08/12/24 22:00 08/15/24 14:04 Sodium Chloride 0.9 % 10 Ml Syringe IV-PUSH 08/12/25 21:59 10 ml QSHIFT FELIPE Administration Sodium Chloride 10 ml 08/12/24 19:11 08/15/24 08:26 Sodium Chloride 0.9 % 10 Ml Vial.Pf INJECTION 08/12/25 19:10 10 ml PRN PRN Administration Dilution Sodium Chloride 10 ml 08/12/24 19:11 Sodium Chloride 0.9 % 10 Ml Syringe IV-PUSH 08/12/25 19:10 PRN PRN Flush A&P - Hospitalist Assessment/Plan (1) Sepsis: (2) Acute hypoxemic respiratory failure: (3) Aspiration pneumonia: Plan Acute respiratory failure with hypoxia Aspiration pneumonia UTI Septic Shock Has been maintained off of pressors for greater than 24 hours. Urine culture isgrowing E. coli that was resistant to Unasyn. Antibiotics adjusted to IV ertapenem from Unasyn Patient had access to Ambien, clonidine and gabapentin at her disposal, prior tobeing found unresponsive. Multifocal pneumonia is visualized on chest imaging. Endorgan dysfunction of MOIRA likely from acute tubular injury. Vital signs have been more stable in the last 24 hours -Pulmonary/critical care/vent management per pulmonary team -IV ertapenem and azithromycin -ICU management and care MOIRA Hypocalcemia Hypokalemia Hypophosphatemia Worsened. In the setting of septic shock and likely acute tubular injury from septic shock. Patient does have a history of bulimia, and we will consider refeeding syndrome as well in relation to electrolyte abnormalities -Continue to treat infections as above -Maintain MAP greater than 65 -Nephrology following, strict intake and output Poly-substance Abuse Sedation adjusted due to patient having history of Vivitrol administration. Both patient's mother and fianc? note that patient has had issues with alcohol, remote IV opioids. Has high tolerance for sedating medications. 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 CODE STATUS: Full code Documented By: Mike Verduzco MD 4 [id number] Signed By: <Electronically signed by Mike Verduzco MD> 08/15/24 1552 [facility] Work Phone: 1(153) 114-326609-26-2024 Progress note Author Rolo Perez [facility] August 15, 2024 11:45am Note Date/Time August 15, 2024 11:45am [facility] [address] [place] [address] Nephrology Progress Note Signed Patient: German Jacob MR#: [id number] : 1990 Acct:[id number] Age/Sex: 33 / F Adm Date: 4 Loc: Room: [address] [place] [address] Type: ADM IN Attending Dr: Mike Verduzco MD Copies to: ~ Date of Service: 08/15/2024 Subjective Subjective Narrative: Patient is a 33-year-old female with a past medical history of bulimia, polysubstance abuse including EtOH, tobacco, IV drug use, THC who presented to the emergency department after being found down by shannan. Patient was recentlydischarged from a detox facility for alcohol approximately 5 days ago. She was there for 1 week. She was prescribed Vivitrol on discharge from the facility. Patient's fianc? states that she was in her normal state of health when they went to bed Monday night. When he awoke Monday morning he found her on the couch obtunded and minimally responsive. He states the patient often times willbinge and purge overnight. He heard gurgling breathing sounds and noticed foaming out of her mouth and subsequently called EMS. In the emergency department patient was initially awake and responsive and oriented to name per ER note. She then became hypoxemic requiring nonrebreather and was noted to be hypotensive and tachycardic. She was tried on BiPAP but gradually became increasingly agitated with subsequent hypoxemia and increased confusion. Patient was intubated and then self extubated requiring reintubation again. Thesecond intubation was noted to have a cuff leak and patient was intubated for third time. Chest x- ray revealed diffuse primarily perihilar infiltrate with CTscan revealing multifocal bilateral infiltrates, with the left side being worse than the right. A right IJ central venous catheter was placed as well. This morning patient remains intubated and sedated. Labs notable for leukocytosis with white count of 20.1. BUN/creatinine this morning is elevated at 32/2.9 from initial 24/1.71 on admission. Calcium is dropped to 6.6 from 8.4. Lactic acid is elevated at 4.1. Troponin was elevated at 176. Urine culture positive for E. coli. Nephrology is consulted for MOIRA and electrolyte management. Interim history Patient was seen examined bedside her urine output has improved but renal function has been declining. She is still intubated and sedated. She is off the vasopressors Exam Physical Exam Vital Signs: Temp Pulse Resp BP Pulse Ox O2 Del Method O2 Flow Rate 98.7 F 77 14 129/84 100 Mechanical Ventilation 15 08/15/24 08:00 08/15/24 10:00 08/15/24 10:00 08/15/24 10:00 08/15/24 10:00 08/15/24 10:00 08/12/24 12:14 FiO2 30 08/15/24 10:00 Narrative: General: Appears comfortable and not in distress Heart: S1-S2, no rub Lung: Bilateral air entry, no wheezing or crackles Abdomen: Soft, positive bowel sounds Extremities: Trace edema, no cyanosis Head: Atraumatic, normocephalic Ear: No external ear redness or tenderness Eyes: No pallor or redness Neck: No JVD or visible mass Skin: No rashes , warm to touch PATIENT MANAGER: Intubated and sedated Musculoskeletal: No swelling or limitation of movement of the large joints Objective Intake and Output I&O: Intake & Output 08/12/24 08/13/24 08/14/24 08/15/24 23:59 23:59 23:59 23:59 Intake Total 3492.9 / 3492.9 4030 / 4030 2775 / 2775 300 / 300 Output Total 570 / 570 725 / 725 775 / 775 650 / 650 Balance 2922.9 / 2922.9 3305 / 3305 2000 / 1999 -350 / -350 Weight 91.6 kg 99.4 kg 100 kg 100 kg Meds and Allergies Meds: Active Medications Acetaminophen (Acetaminophen 325 Mg Tablet) 650 mg PO Q6HR PRN PRN Reason: Pain Scale 1 - 3 or fever Stop: 08/12/25 18:07 Last Admin: 08/13/24 04:30 Dose: 650 mg Albuterol (Albuterol Hfa 200 Puff/18 Gm Inhaler) 6 puff VENT Q6HR [facility] Stop: 08/13/25 00:00 Last Admin: 08/15/24 05:05 Dose: 6 puff Chlorhexidine Gluconate (Chlorhexidine Gluconate 0.12% 15 Ml Udc) 15 ml MUCOUS MEM BID [facility] Stop: 08/12/25 20:59 Last Admin: 08/15/24 08:26 Dose: 15 ml Docusate Sodium (Docusate Liquid 100 Mg/10 Ml Udc) 100 mg PO BID [facility] Stop: 08/12/25 12:29 Last Admin: 08/15/24 08:26 Dose: 100 mg Heparin Sodium (Porcine) (Heparin 5,000 Unit/Ml Vial) 5,000 unit SUBCUT Q8HR [facility] Stop: 08/12/25 21:59 Last Admin: 08/15/24 05:07 Dose: 5,000 unit Midazolam HCl (Versed) 100 mg in 100 mls @ 1 mls/hr IV .Q24H [facility]; Protocol Stop: 02/08/25 14:14 Last Admin: 08/15/24 03:37 Dose: 10 mg/hr, 10 mls/hr Magnesium Sulfate (Magnesium Sulf 2gm-*Swfi*) 2 gm in 50 mls @ 25 mls/hr IV DAILY PRN PRN Reason: Magnesium Level < 1.7 Stop: 08/12/25 18:07 Last Infusion: 08/13/24 07:46 Dose: Infused Azithromycin (Zithromax) 500 mg in 250 mls @ 250 mls/hr IV Q24H [facility] Stop: 08/16/24 21:29 Last Infusion: 08/14/24 21:22 Dose: Infused Sodium Chloride (0.9% Sodium Chloride 500 Ml) 500 mls @ 20 mls/hr IV .Q24H PRN PRN Reason: cvp Stop: 08/14/25 01:14 Ertapenem (Invanz) 1 gm in 100 mls @ 200 mls/hr IV Q24H [facility] Last Admin: 08/15/24 09:18 Dose: 200 mls/hr Propofol (Diprivan) 1,000 mg in 100 mls @ 12 mls/hr IV .Q8H20M [facility]; Protocol Stop: 08/14/25 09:29 Last Admin: 08/15/24 10:41 Dose: Not Given Magnesium Hydroxide (Magnesium Hydroxide Susp 30 Ml Udc) 30 ml PO DAILY PRN PRN Reason: Constipation Stop: 08/12/25 12:28 Midazolam HCl (Midazolam/Pf 2 Mg/2 Ml Vial) 1 mg IV-PUSH Q15M PRN PRN Reason: Sedation goals Stop: 02/08/25 14:02 Last Admin: 08/12/24 14:35 Dose: 1 mg Ondansetron HCl (Ondansetron 4 Mg/2 Ml Vial) 4 mg IV-PUSH Q8H PRN PRN Reason: Nausea And Vomiting Stop: 08/12/25 18:07 Pantoprazole Sodium (Pantoprazole 40 Mg Vial) 40 mg IV-PUSH DAILY [facility] Stop: 08/13/25 08:59 Last Admin: 08/15/24 08:26 Dose: 40 mg Potassium Chloride (Potassium Chloride Er 20 Meq Tab.Er.Prt) 40 meq PO DAILY PRN PRN Reason: Hypokalemia Stop: 08/12/25 18:07 Propofol (Propofol - Infusion Bolus 1,000 Mg/100 Ml Vial) 0 mg IV PROTOCOL PRN PRN Reason: Bolus Documentation Stop: 08/14/25 09:29 Sennosides (Sennosides Syrup 8.8 Mg/5 Ml Udc) 8.8 mg PO BID [facility] Stop: 08/12/25 20:59 Last Admin: 08/15/24 08:26 Dose: 8.8 mg Sodium Chloride (Sodium Chloride 0.9 % 10 Ml Syringe) 0 ml IV-PUSH QSHIFT [facility] Stop: 08/12/25 21:59 Last Admin: 08/15/24 08:26 Dose: 30 ml Sodium Chloride (Sodium Chloride 0.9 % 10 Ml Vial.Pf) 10 ml INJECTION PRN PRN PRN Reason: Dilution Stop: 08/12/25 19:10 Last Admin: 08/15/24 08:26 Dose: 10 ml Sodium Chloride (Sodium Chloride 0.9 % 10 Ml Syringe) 10 ml IV-PUSH PRN PRN PRN Reason: Flush Stop: 08/12/25 19:10 Allergies No Known Allergies Allergy (Verified 08/12/24 10:09) Results - Nephrology Labs 08/15/24 04:50 08/15/24 04:50 Labs: 08/15/24 04:50 BUN 40 H Creatinine 3.24 H Phosphorus 4.3 Albumin 2.8 L Radiology Impressions Impressions - last 24 hours: Impressions Chest X-Ray 08/15/24 05:00 IMPRESSION: CONTINUED PARENCHYMAL CHANGES, POTENTIALLY MINIMALLY IMPROVED ON THE LEFT AND WORSE ON THE RIGHT Impression dictated by: Shavon Astorga M.D.08/15/2024 7:09 AM Dictation Location: [place] [address] Any impression(s) listed above is documentation that was entered by the reading physician into a diagnostic report(s) for German Buckley Rene. I have reviewed the report(s) and am incorporating any findings in the treatment plan of this patient where applicable. A&P - Nephrology Assessment/Plan (1) MOIRA (acute kidney injury): Assessment/Problem Details: She likely has oliguric ATN in setting of septic shock. She has no evidence of obstructive uropathy on CAT scan. Her renal function is declining. (2) Acute hypoxemic respiratory failure: Assessment/Problem Details: She was found to have a bilateral infiltrate possibly due to the aspiration. Pulmonary has been following patient. (3) Sepsis with hypotension: Assessment/Problem Details: She has a positive urine culture for E. coli. She initially has hypertension and was getting with aggressive fluid resuscitation. Blood pressure improved with hydration (4) Hypomagnesemia: Assessment/Problem Details: She has hypomagnesemia likely malnutrition. (5) Hypophosphatemia: Assessment/Problem Details: She has hypophosphatemia due to the refeeding syndrome. (6) Anemia: Assessment/Problem Details: She has anemia with thrombocytopenia. (7) Thrombocytopenia: Assessment/Problem Details: She has a thrombocytopenia the due to the sepsis or TMA Plan * No need for hemodialysis now. Will continue to assess its needs on regular basis. * Keep the MAP 65 mmHg * Continue IV antibiotic as per the ICU team. Pharmacy to dose medication based on EGFR. * Continue vent management as per the pulmonary team. * Will give calcium gluconate 2 g IV x 1 dose. * Will continue to monitor renal function and electrolytes. Monitor input output daily. * Will check LDH and haptoglobin due to the anemia and thrombocytopenia * Monitor H&H and transfuse as needed to keep the hemoglobin greater than 7 g/dL. Documented By: Rolo Perez MD 08/15/24 1139 Signed By: <Electronically signed by Rolo Perez MD> 08/15/24 1145 [facility] Work Phone: 1(361) 572-737309-25-2024 Progress note Author Mike Verduzco [facility] August 14, 2024 7:33pm Note Date/Time August 14, 2024 6:07pm [facility] [address] [place] [address] Hospitalist Progress Note Signed Patient: German Jacob MR#: [id number] : 1990 Acct:[id number] Age/Sex: 33 / F Adm Date: 4 Loc: Room: [address] [place] [address] Type: ADM IN Attending Dr: Mike Verduzco MD Copies to: ~ Date of Service: 08/14/2024 Subjective Subjective Narrative: Patient remains off of vasopressor support. Sedation adjusted to include propofol, given that patient had recently received long-acting naltrexone. She does remain intubated and sedated in the ICU. Exam Physical Exam Vital Signs: Temp Pulse Resp BP Pulse Ox O2 Del Method O2 Flow Rate 98.8 F 80 12 113/64 100 Mechanical Ventilation 15 08/14/24 16:00 08/14/24 17:09 08/14/24 17:00 08/14/24 17:08/14/24 17:00 08/14/24 17:00 08/12/24 12:14 FiO2 30 08/14/24 17:00 Narrative: Constitutional: Young WF, intubated, sedated, calm on sedation at this time HEENT: ET and OG tubes in place Cardiovascular: RRR, no M/R/G, normal S1 and S2, no JVD Respiratory: Lungs clear to auscultation bilaterally, no wheezes, rales or rhonchi GI: Soft, normoactive bowel sounds : Navarro catheter in place draining clear yellow urine Neuro: Intubated and sedated Extremities: No clubbing, cyanosis or edema Psych: Intubated and sedated Objective Lab Results 08/14/24 07:50 08/14/24 04:45 Microbiology Results Microbiology 08/12/24 10:35 Blood - Right Antecubital Blood Culture - Preliminary No Growth 2 Days 08/12/24 10:42 Blood Blood Culture - Preliminary No Growth 2 Days 08/13/24 11:00 Sputum - Endotrachael Aerobic Culture - Preliminary Rare normal respiratory rodolfo 1 Day 08/13/24 11:00 Sputum - Endotrachael Gram Stain - Final 08/12/24 12:48 Urine - Navarro Catheter Urine Culture - Final Escherichia coli Meds Allergies and Active Meds Allergies No Known Allergies Allergy (Verified 08/12/24 10:09) Active Meds: Active Medications Generic Name Dose Route Start Last Admin Trade Name Freq PRN Reason Stop Dose Admin Acetaminophen 650 mg 08/12/24 18:08 08/13/24 04:30 Acetaminophen 325 Mg Tablet PO 08/12/25 18:07 650 mg Q6HR PRN Administration Pain Scale 1 - 3 or fever Albuterol 6 puff 08/13/24 00:00 08/14/24 17:21 Albuterol Hfa 200 Puff/18 Gm Inhaler VENT 08/13/25 00:00 6 puff Q6HR FELIPE Administration Chlorhexidine Gluconate 15 ml 08/12/24 21:00 08/14/24 08:54 Chlorhexidine Gluconate 0.12% 15 Ml Udc MUCOUS MEM 08/12/25 20:59 15 ml BID FELIPE Administration Docusate Sodium 100 mg 08/12/24 12:30 08/14/24 08:52 Docusate Liquid 100 Mg/10 Ml Udc PO 08/12/25 12:29 100 mg BID FELIPE Administration Heparin Sodium (Porcine) 5,000 unit 08/12/24 22:00 08/14/24 14:12 Heparin 5,000 Unit/Ml Vial SUBCUT 08/12/25 21:59 5,000 unit Q8HR FELIPE Administration Midazolam HCl 100 mg in 100 mls @ 1 mls/hr 08/12/24 14:15 08/14/24 17:09 Versed IV 02/08/25 14:14 10 mg/hr .Q24H FELIPE 10 mls/hr Administration Protocol 1 MG/HR Magnesium Sulfate 2 gm in 50 mls @ 25 mls/hr 08/12/24 18:08 08/13/24 07:46 Magnesium Sulf 2gm-*Swfi* IV 08/12/25 18:07 Infused DAILY PRN Infusion Magnesium Level < 1.7 Azithromycin 500 mg in 250 mls @ 250 mls/hr 08/12/24 20:30 08/13/24 22:44 Zithromax IV 08/16/24 21:29 Infused Q24H FELIPE Infusion Sodium Chloride 500 mls @ 20 mls/hr 08/14/24 01:23 0.9% Sodium Chloride 500 Ml IV 08/14/25 01:14 .Q24H PRN cvp Ertapenem 1 gm in 100 mls @ 200 mls/hr 08/14/24 10:00 08/14/24 11:33 Invanz IV Infused Q24H FELIPE Infusion Propofol 1,000 mg in 100 mls @ 12 mls/hr 08/14/24 09:30 08/14/24 14:20 Diprivan IV 08/14/25 09:29 15 mcg/kg/min .Q8H20M FELIPE 9 mls/hr Titration Protocol 20 MCG/KG/MIN Magnesium Hydroxide 30 ml 08/12/24 12:29 Magnesium Hydroxide Susp 30 Ml Udc PO 08/12/25 12:28 DAILY PRN Constipation Midazolam HCl 1 mg 08/12/24 14:03 08/12/24 14:35 Midazolam/Pf 2 Mg/2 Ml Vial IV-PUSH 02/08/25 14:02 1 mg Q15M PRN Administration Sedation goals Ondansetron HCl 4 mg 08/12/24 18:08 Ondansetron 4 Mg/2 Ml Vial IV-PUSH 08/12/25 18:07 Q8H PRN Nausea And Vomiting Pantoprazole Sodium 40 mg 08/13/24 09:00 08/14/24 08:52 Pantoprazole 40 Mg Vial IV-PUSH 08/13/25 08:59 40 mg DAILY FELIPE Administration Potassium Chloride 40 meq 08/12/24 18:08 Potassium Chloride Er 20 Meq Tab.Er.Prt PO 08/12/25 18:07 DAILY PRN Hypokalemia Propofol 0 mg 08/14/24 09:30 Propofol - Infusion Bolus 1,000 Mg/100 Ml Vial IV 08/14/25 09:29 PROTOCOL PRN Bolus Documentation Sennosides 8.8 mg 08/12/24 21:00 08/14/24 08:52 Sennosides Syrup 8.8 Mg/5 Ml Udc PO 08/12/25 20:59 8.8 mg BID FELIPE Administration Sodium Chloride 0 ml 08/12/24 22:00 08/14/24 14:13 Sodium Chloride 0.9 % 10 Ml Syringe IV-PUSH 08/12/25 21:59 10 ml QSHIFT FELIPE Administration Sodium Chloride 10 ml 08/12/24 19:11 08/14/24 08:52 Sodium Chloride 0.9 % 10 Ml Vial.Pf INJECTION 08/12/25 19:10 10 ml PRN PRN Administration Dilution Sodium Chloride 10 ml 08/12/24 19:11 Sodium Chloride 0.9 % 10 Ml Syringe IV-PUSH 08/12/25 19:10 PRN PRN Flush A&P - Hospitalist Assessment/Plan (1) Sepsis: (2) Acute hypoxemic respiratory failure: (3) Aspiration pneumonia: Plan Acute respiratory failure with hypoxia Aspiration pneumonia UTI Septic Shock Weaned off of pressors today. Urine culture is growing E. coli that was resistant to Unasyn. Antibiotics adjusted to IV ertapenem from Unasyn Patient had access to Ambien, clonidine and gabapentin at her disposal, prior tobeing found unresponsive. Multifocal pneumonia is visualized on chest imaging. Endorgan dysfunction of MOIRA likely from acute tubular injury also present -Pulmonary/critical care/vent management per pulmonary team -IV ertapenem and azithromycin -ICU management and care MOIRA Hypocalcemia Hypokalemia Hypophosphatemia Worsened. In the setting of septic shock and likely acute tubular injury from septic shock. Patient does have a history of bulimia, and we will consider refeeding syndrome as well in relation to electrolyte abnormalities -Continue to treat infections as above -Maintain MAP greater than 65 -Nephrology following, strict intake and output Poly-substance Abuse Sedation adjusted due to patient having history of Vivitrol administration. Both patient's mother and fianc? note that patient has had issues with alcohol, remote IV opioids. Has high tolerance for sedating medications. Family reportsshe has had substance issues for greater than 15 years CODE STATUS: Full code Documented By: Mike Verduzco MD 4 [id number] Signed By: <Electronically signed by Mike Verduzco MD> 08/14/241932 [facility] Work Phone: 1(710) 381-154509-25-2024 Progress note Author Renny Multani [facility] August 14, 2024 12:26pm Note Date/Time August 14, 2024 12:26pm [facility] [address] [place] [address] Pulmonology Progress Note Signed Patient: German Jacob MR#: [id number] : 1990 Acct:[id number] Age/Sex: 33 / F Adm Date: 4 Loc: Room: [address] [place] [address] Type: ADM IN Attending Dr: iMke Verduzco MD Copies to: ~ Date of Service: 08/14/2024 Subjective Subjective Narrative: Patient is now actually resting comfortably on Versed at 10 mg/h and fentanyl 150 mcg/h though note that patient reportedly in the past had been on naloxone which should block the opioid receptors for the fentanyl. There were no other reported issues overnight per nursing staff with note of thrombocytopenia. Exam Physical Exam Vital Signs: Temp Pulse Resp BP Pulse Ox O2 Del Method O2 Flow Rate 99.5 F H 84 12 113/65 100 Mechanical Ventilation 15 08/14/24 11:00 08/14/24 11:47 08/14/24 11:47 08/14/24 11:00 08/14/24 11:00 08/14/24 11:00 08/12/24 12:14 FiO2 30 08/14/24 11:47 Const Nutritional Appearance: average body habitus Orientation: not alert and not awake HEENT Head: normal to inspection, normocephalic and atraumatic Ears: external ears normal Nose: external nose normal (NG tube in place) Face and sinus: normal facial exam Mouth: other (7.5 mm ID ET tube) Eyes Eyelids: eyelids normal (With glitter noted) Neck Neck: normal visual inspection and no lymphadenopathy Chest Chest palpation & inspection: normal inspection of the chest Resp Auscultation: clear to auscultation bilaterally, no rales, no rhonchi and no wheezes Cardio Rate: regular rate Rhythm: regular rhythm Heart Sounds: S1 normal, S2 normal, no gallops, no murmurs and no rubs GI Inspection: normal to inspection Palpation: soft and nontender Auscultation: hypoactive bowel sounds Rectal Exam: deferred General: deferred Skin General: no rashes or lesions noted (warm and dry) Extrem General: no pedal edema Objective Intake and Output I&O - Last 24 Hours: Intake & Output 08/13/24 08/14/24 08/14/24 23:59 07:59 15:59 Intake Total 1650 / 4030 1600 / 2000 400 / 2000 Output Total 375 / 725 225 / 225 Balance 1275 / 3305 1375 / 1775 400 / 1775 Weight 220 lb 7.396 oz Labs 08/14/24 07:50 08/14/24 04:45 Microbiology Micro: Microbiology 3 08/12/24 10:35 Blood Culture - Preliminary Blood - Right Antecubital No Growth 2 Days 08/12/24 10:42 Blood Culture - Preliminary Blood No Growth 2 Days 08/13/24 11:00 Aerobic Culture - Preliminary Sputum - Endotrachael Rare normal respiratory rodolfo 1 Day Gram Stain - Final 08/12/24 12:48 Urine Culture - Final Urine - Navarro Catheter Escherichia coli Imaging and Cardiology Chest x-ray: Status: image reviewed by me Additional comments: Date of Service: 08/14/24 XR/XR chest 1V portable: pneumonia; respiratory failure PORTABLE AP ERECT CHEST 0517 hours CLINICAL HISTORY: Respiratory distress on ventilator COMPARISON: 08/13/2024 Tubes and lines are similar to the comparison. There is shallow inspiration. Possible minimal basilar atelectasis is present on the right. There is continued groundglass opacity on the left. The hemidiaphragm on that side is not as well seen and interval worsening or pleural effusion is not excluded. Nopneumothorax is identified. The cardiac and mediastinal contours are similar. XR/XR chest 1V portable IMPRESSION: CONTINUED LEFT-SIDED OPACITY, POSSIBLY SLIGHTLY WORSE AT THE BASE WHERE THE HEMIDIAPHRAGM IS OBSCURED AND PLEURAL EFFUSION IS NOT EXCLUDED. Additional Results Results Comments: 08/14/24 05:28 ABG pH 7.31 L ABG pCO2 47.3 H ABG pO2 79.5 L ABG HCO3 23.1 ABG Total CO2 24.6 ABG O2 Saturation 94.2 L ABG O2 Content 6.1 L ABG Base Excess -3.2 L 12/450/35/5 Assessment/Plan Assessment/Plan (1) Acute hypoxemic respiratory failure: (2) Sepsis: (3) Pneumonia: (4) Altered mental status: (5) UTI (urinary tract infection): Plan Hospital day #2, ventilator day #2, right internal jugular central venous catheter day #2 for patient found unresponsive with bilateral infiltrates with history that could certainly suggest aspiration though certainly cannot exclude possible standard community-acquired pneumonia. Patient was noted to have E. coli UTI though resistant to Unasyn with Unasyn replaced by ertapenem with azithromycin continued for commune acquired pneumonia versus aspiration pneumonia as well as resistant E. coli UTI. We will send INR and fibrinogen to evaluate for possible DIC given rapid drop in platelets. The length of her hospitalization would make heparin-induced antibodies as well as beta-lactam induced thrombocytopenia less likely with Unasyn less likely cause of thrombocytopenia. We will continue to monitor platelets otherwise. Note continued worsening in hepatic function and renal function though the trajectoryof deterioration appears to be slowing. I am hopeful that this will start to recover. Patient remains hemodynamically stable off pressors. We will try to wean patient off fentanyl and will resume propofol. We will also start nutritional support. Documented By: Renny Multani MD 4 [id number] Signed By: <Electronically signed by MD Renny Multani> 08/14/24 1226 [facility] Work Phone: 1([phone]) 901-231309-25-2024 Progress note Author Rolo Perez [facility] August 14, 2024 11:47am Note Date/Time August 14, 2024 11:46am [facility] [address] [place] [address] Nephrology Progress Note Signed Patient: German Jacob MR#: [id number] : 1990 Acct:[id number] Age/Sex: 33 / F Adm Date: 4 Loc: Room: [address] [place] [address] Type: ADM IN Attending Dr: Mike Verduzco MD Copies to: ~ Date of Service: 08/14/2024 Subjective Subjective Narrative: Patient is a 33-year-old female with a past medical history of bulimia, polysubstance abuse including EtOH, tobacco, IV drug use, THC who presented to the emergency department after being found down by fianc?. Patient was recentlydischarged from a detox facility for alcohol approximately 5 days ago. She was there for 1 week. She was prescribed Vivitrol on discharge from the facility. Patient's fianc? states that she was in her normal state of health when they went to bed Monday night. When he awoke Monday morning he found her on the couch obtunded and minimally responsive. He states the patient often times willbinge and purge overnight. He heard gurgling breathing sounds and noticed foaming out of her mouth and subsequently called EMS. In the emergency department patient was initially awake and responsive and oriented to name per ER note. She then became hypoxemic requiring nonrebreather and was noted to be hypotensive and tachycardic. She was tried on BiPAP but gradually became increasingly agitated with subsequent hypoxemia and increased confusion. Patient was intubated and then self extubated requiring reintubation again. Thesecond intubation was noted to have a cuff leak and patient was intubated for third time. Chest x- ray revealed diffuse primarily perihilar infiltrate with CTscan revealing multifocal bilateral infiltrates, with the left side being worse than the right. A right IJ central venous catheter was placed as well. This morning patient remains intubated and sedated. Labs notable for leukocytosis with white count of 20.1. BUN/creatinine this morning is elevated at 32/2.9 from initial 24/1.71 on admission. Calcium is dropped to 6.6 from 8.4. Lactic acid is elevated at 4.1. Troponin was elevated at 176. Urine culture positive for E. coli. Nephrology is consulted for MOIRA and electrolyte management. Interim history Patient was seen examined bedside and case was discussed with the bedside RN. She has been off vasopressors since yesterday afternoon. Her urine output has improved overnight. No other issues were reported by bedside RN. She was givenIV calcium and p.o. KCl this morning. She has a positive fluid balance of closeto 8 L. Exam Physical Exam Vital Signs: Temp Pulse Resp BP Pulse Ox O2 Del Method O2 Flow Rate 99.5 F H 85 12 113/65 100 Mechanical Ventilation 15 08/14/24 11:00 08/14/24 11:00 08/14/24 11:00 08/14/24 11:00 08/14/24 11:00 08/14/24 11:00 08/12/24 12:14 FiO2 35 08/14/24 11:00 Narrative: General: Appears comfortable and not in distress Heart: S1-S2, no rub Lung: Bilateral air entry, no wheezing or crackles Abdomen: Soft, positive bowel sounds Extremities: Trace edema, no cyanosis Head: Atraumatic, normocephalic Ear: No external ear redness or tenderness Eyes: No pallor or redness Neck: No JVD or visible mass Skin: No rashes , warm to touch PATIENT MANAGER: Intubated and sedated Musculoskeletal: No swelling or limitation of movement of the large joints Objective Intake and Output I&O: Intake & Output 08/11/24 08/12/24 08/13/24 08/14/24 23:59 23:59 23:59 23:59 Intake Total 3492.9 / 3492.9 4030 / 4030 1999 / 1999 Output Total 570 / 570 725 / 725 225 / 225 Balance 2922.9 / 2922.9 3305 / 3305 1775 / 1775 Weight 91.6 kg 99.4 kg 100 kg Meds and Allergies Meds: Active Medications Acetaminophen (Acetaminophen 325 Mg Tablet) 650 mg PO Q6HR PRN PRN Reason: Pain Scale 1 - 3 or fever Stop: 08/12/25 18:07 Last Admin: 08/13/24 04:30 Dose: 650 mg Albuterol (Albuterol Hfa 200 Puff/18 Gm Inhaler) 6 puff VENT Q6HR [facility] Stop: 08/13/25 00:00 Last Admin: 08/14/24 05:09 Dose: 6 puff Chlorhexidine Gluconate (Chlorhexidine Gluconate 0.12% 15 Ml Udc) 15 ml MUCOUS MEM BID [facility] Stop: 08/12/25 20:59 Last Admin: 08/14/24 08:54 Dose: 15 ml Docusate Sodium (Docusate Liquid 100 Mg/10 Ml Udc) 100 mg PO BID [facility]EL[facility] Stop: 08/12/25 12:29 Last Admin: 08/14/24 08:52 Dose: 100 mg Heparin Sodium (Porcine) (Heparin 5,000 Unit/Ml Vial) 5,000 unit SUBCUT Q8HR [facility] Stop: 08/12/25 21:59 Last Admin: 08/14/24 06:21 Dose: 5,000 unit Norepinephrine Bitartrate (Levophed) 16 mg in 250 mls @ 4.688 mls/hr IV .Q24H [facility]; Protocol Stop: 08/12/25 12:29 Last Infusion: 08/13/24 13:16 Dose: 0 mcg/min, 0 mls/hr Fentanyl (Fentanyl 1,000 Mcg/100 Ml D5w) 1,000 mcg in 100 mls @ 2.5 mls/hr IV .Q24H [facility]; Protocol Last Titration: 08/14/24 11:25 Dose: 0 mcg/hr, 0 mls/hr Midazolam HCl (Versed) 100 mg in 100 mls @ 1 mls/hr IV .Q24H [facility]; Protocol Stop: 02/08/25 14:14 Last Admin: 08/14/24 06:57 Dose: 10 mg/hr, 10 mls/hr Magnesium Sulfate (Magnesium Sulf 2gm-*Swfi*) 2 gm in 50 mls @ 25 mls/hr IV DAILY PRN PRN Reason: Magnesium Level < 1.7 Stop: 08/12/25 18:07 Last Infusion: 08/13/24 07:46 Dose: Infused Azithromycin (Zithromax) 500 mg in 250 mls @ 250 mls/hr IV Q24H [facility] Stop: 08/16/24 21:29 Last Infusion: 08/13/24 22:44 Dose: Infused Sodium Chloride (0.9% Sodium Chloride 500 Ml) 500 mls @ 20 mls/hr IV .Q24H PRN PRN Reason: cvp Stop: 08/14/25 01:14 Magnesium Sulfate (Magnesium Sulf 4 Gm-*Swfi*) 4 gm in 100 mls @ 25 mls/hr IV ONCE ONE Stop: 08/14/24 13:59 Last Admin: 08/14/24 10:44 Dose: 25 mls/hr Ertapenem (Invanz) 1 gm in 100 mls @ 200 mls/hr IV Q24H [facility] Last Infusion: 08/14/24 11:33 Dose: Infused Propofol (Diprivan) 1,000 mg in 100 mls @ 12 mls/hr IV .Q8H20M [facility]; Protocol Stop: 08/14/25 09:29 Last Admin: 08/14/24 10:43 Dose: 20 mcg/kg/min, 12 mls/hr Magnesium Hydroxide (Magnesium Hydroxide Susp 30 Ml Udc) 30 ml PO DAILY PRN PRN Reason: Constipation Stop: 08/12/25 12:28 Midazolam HCl (Midazolam/Pf 2 Mg/2 Ml Vial) 1 mg IV-PUSH Q15M PRN PRN Reason: Sedation goals Stop: 02/08/25 14:02 Last Admin: 08/12/24 14:35 Dose: 1 mg Ondansetron HCl (Ondansetron 4 Mg/2 Ml Vial) 4 mg IV-PUSH Q8H PRN PRN Reason: Nausea And Vomiting Stop: 08/12/25 18:07 Pantoprazole Sodium (Pantoprazole 40 Mg Vial) 40 mg IV-PUSH DAILY [facility] Stop: 08/13/25 08:59 Last Admin: 08/14/24 08:52 Dose: 40 mg Potassium Chloride (Potassium Chloride Er 20 Meq Tab.Er.Prt) 40 meq PO DAILY PRN PRN Reason: Hypokalemia Stop: 08/12/25 18:07 Propofol (Propofol - Infusion Bolus 1,000 Mg/100 Ml Vial) 0 mg IV PROTOCOL PRN PRN Reason: Bolus Documentation Stop: 08/14/25 09:29 Sennosides (Sennosides Syrup 8.8 Mg/5 Ml Udc) 8.8 mg PO BID [facility] Stop: 08/12/25 20:59 Last Admin: 08/14/24 08:52 Dose: 8.8 mg Sodium Chloride (Sodium Chloride 0.9 % 10 Ml Syringe) 0 ml IV-PUSH QSHIFT [facility] Stop: 08/12/25 21:59 Last Admin: 08/14/24 06:21 Dose: 10 ml Sodium Chloride (Sodium Chloride 0.9 % 10 Ml Vial.Pf) 10 ml INJECTION PRN PRN PRN Reason: Dilution Stop: 08/12/25 19:10 Last Admin: 08/14/24 08:52 Dose: 10 ml Sodium Chloride (Sodium Chloride 0.9 % 10 Ml Syringe) 10 ml IV-PUSH PRN PRN PRN Reason: Flush Stop: 08/12/25 19:10 Allergies No Known Allergies Allergy (Verified 08/12/24 10:09) Results - Nephrology Labs 08/14/24 07:50 08/14/24 04:45 Labs: 08/14/24 08/14/24 08/14/24 04:45 06:55 06:55 BUN 32 H Creatinine 2.96 H Phosphorus 3.0 Cancelled Albumin 2.5 L Radiology Impressions Impressions - last 24 hours: Impressions Chest X-Ray 08/14/24 05:00 IMPRESSION: CONTINUED LEFT-SIDED OPACITY, POSSIBLY SLIGHTLY WORSE AT THE BASE WHERE THE HEMIDIAPHRAGM IS OBSCURED AND PLEURAL EFFUSION IS NOT EXCLUDED. Impression dictated by: Shavon Astorga M.D.08/14/2024 7:08 AM Dictation Location: [place] [address] Any impression(s) listed above is documentation that was entered by the reading physician into a diagnostic report(s) for German Jacob. I have reviewed the report(s) and am incorporating any findings in the treatment plan of this patient where applicable. A&P - Nephrology Assessment/Plan (1) MOIRA (acute kidney injury): Assessment/Problem Details: She likely has oliguric ATN in setting of septic shock. She has no evidence of obstructive uropathy on CAT scan. Her renal function is declining. (2) Acute hypoxemic respiratory failure: Assessment/Problem Details: She was found to have a bilateral infiltrate possibly due to the aspiration. Pulmonary has been following patient. (3) Sepsis with hypotension: Assessment/Problem Details: She has a positive urine culture for E. coli. She initially has hypertension and was getting with aggressive fluid resuscitation. Blood pressure improved with hydration (4) Hypomagnesemia: Assessment/Problem Details: She has hypomagnesemia likely malnutrition. (5) Hypophosphatemia: Assessment/Problem Details: She has hypophosphatemia due to the refeeding syndrome. Plan * No need for hemodialysis now. Will continue to assess its needs on regular basis. * Will stop IV fluid. * Keep the MAP 65 mmHg * Continue Unasyn for presumed aspiration pneumonia and UTI * Continue vent management as per the pulmonary team. * Will monitor electrolytes and phosphorus and replete as needed. * Documented By: Rolo Perez MD 08/14/24 1144 Signed By: <Electronically signed by Rolo Perez MD> 08/14/24 1147 [facility] Work Phone: [phone]) 219-849309-25-2024 Progress note Author Mike Verduzco [facility] August 13, 2024 10:15pm Note Date/Time August 13, 2024 10:15pm [facility] [address] [place] [address] Hospitalist Progress Note Signed Patient: German Jacob MR#: [id number] : 1990 Acct:[id number] Age/Sex: 33 / F Adm Date: 4 Loc: Room: [address] [place] [address] Type: ADM IN Attending Dr: Mike Verduzco MD Copies to: ~ Date of Service: 08/13/2024 Subjective Subjective Narrative: Patient with issues of sedation overnight given her high tolerance for these medications. She has been weaned to off of vasopressor support by the afternoon. Renal function has worsened today. Exam Physical Exam Vital Signs: Temp Pulse Resp BP Pulse Ox O2 Del Method O2 Flow Rate 97.9 F 86 12 106/61 97 Mechanical Ventilation 15 08/13/24 20:00 08/13/24 20:01 08/13/24 20:01 08/13/24 20:00 08/13/24 20:00 08/13/24 20:00 08/12/24 12:14 FiO2 35 08/13/24 20:01 Narrative: Constitutional: Young WF, intubated, sedated, though somewhat restless on sedation HEENT: ET and OG tubes in place Cardiovascular: RRR, no M/R/G, normal S1 and S2, no JVD Respiratory: Lungs clear to auscultation bilaterally, no wheezes, rales or rhonchi GI: Soft, normoactive bowel sounds : Navarro catheter in place draining clear yellow urine Neuro: Intubated and sedated Extremities: No clubbing, cyanosis or edema Psych: Intubated and sedated Objective Lab Results 08/13/24 04:10 08/13/24 04:10 Microbiology Results Microbiology 08/13/24 11:00 Sputum - Endotrachael Gram Stain - Final 08/12/24 10:35 Blood - Right Antecubital Blood Culture - Preliminary No Growth 1 Day 08/12/24 12:48 Urine - Navarro Catheter Urine Culture - Preliminary Escherichia coli 08/12/24 10:42 Blood Blood Culture - Preliminary No Growth 1 Day 08/12/24 19:10 Nasopharyngeal Respiratory Panel (PCR) - Final Meds Allergies and Active Meds Allergies No Known Allergies Allergy (Verified 08/12/24 10:09) Active Meds: Active Medications Generic Name Dose Route Start Last Admin Trade Name Freq PRN Reason Stop Dose Admin Acetaminophen 650 mg 08/12/24 18:08 08/13/24 04:30 Acetaminophen 325 Mg Tablet PO 08/12/25 18:07 650 mg Q6HR PRN Administration Pain Scale 1 - 3 or fever Albuterol 6 puff 08/13/24 00:00 08/13/24 17:37 Albuterol Hfa 200 Puff/18 Gm Inhaler VENT 08/13/25 00:00 6 puff Q6HR [facility]EL[facility] Administration Chlorhexidine Gluconate 15 ml 08/12/24 21:00 08/13/24 19:59 Chlorhexidine Gluconate 0.12% 15 Ml Udc MUCOUS MEM 08/12/25 20:59 15 ml BID [facility]EL[facility] Administration Docusate Sodium 100 mg 08/12/24 12:30 08/13/24 19:59 Docusate Liquid 100 Mg/10 Ml Udc PO 08/12/25 12:29 100 mg BID FELIPE Administration Heparin Sodium (Porcine) 5,000 unit 08/12/24 22:00 08/13/24 14:18 Heparin 5,000 Unit/Ml Vial SUBCUT 08/12/25 21:59 5,000 unit Q8HR [facility] Administration Norepinephrine Bitartrate 16 mg in 250 mls @ 4.688 mls/hr 08/12/24 12:30 08/13/24 13:16 Levophed IV 08/12/25 12:29 0 mcg/min .Q24H [facility] 0 mls/hr Infusion Protocol 5 MCG/MIN Fentanyl 1,000 mcg in 100 mls @ 2.5 mls/hr 08/12/24 12:30 08/13/24 18:31 Fentanyl 1,000 Mcg/100 Ml D5w IV 150 mcg/hr .Q24H [facility] 15 mls/hr Administration Protocol 25 MCG/HR Midazolam HCl 100 mg in 100 mls @ 1 mls/hr 08/12/24 14:15 08/13/24 14:19 Versed IV 02/08/25 14:14 Not Given .Q24H [facility] Protocol 1 MG/HR Sodium Chloride 1,000 mls @ 100 mls/hr 08/12/24 18:15 08/13/24 18:31 0.9% Sodium Chloride 1,000 Ml IV 08/12/25 18:14 100 mls/hr .Q10H [facility] Administration Magnesium Sulfate 2 gm in 50 mls @ 25 mls/hr 08/12/24 18:08 08/13/24 07:46 Magnesium Sulf 2gm-*Swfi* IV 08/12/25 18:07 Infused DAILY PRN Infusion Magnesium Level < 1.7 Ampicillin Sodium/Sulbactam Sodium 1.5 gm in 100 mls @ 200 mls/hr 08/12/24 19:00 08/13/24 18:31 Unasyn IV 200 mls/hr Q6H [facility] Administration Azithromycin 500 mg in 250 mls @ 250 mls/hr 08/12/24 20:30 08/13/24 19:59 Zithromax IV 250 mls/hr Q24H [facility] Administration Magnesium Hydroxide 30 ml 08/12/24 12:29 Magnesium Hydroxide Susp 30 Ml Udc PO 08/12/25 12:28 DAILY PRN Constipation Midazolam HCl 1 mg 08/12/24 14:03 08/12/24 14:35 Midazolam/Pf 2 Mg/2 Ml Vial IV-PUSH 02/08/25 14:02 1 mg Q15M PRN Administration Sedation goals Ondansetron HCl 4 mg 08/12/24 18:08 Ondansetron 4 Mg/2 Ml Vial IV-PUSH 08/12/25 18:07 Q8H PRN Nausea And Vomiting Pantoprazole Sodium 40 mg 08/13/24 09:00 08/13/24 08:08 Pantoprazole 40 Mg Vial IV-PUSH 08/13/25 08:59 40 mg DAILY FELIPE Administration Potassium Chloride 40 meq 08/12/24 18:08 Potassium Chloride Er 20 Meq Tab.Er.Prt PO 08/12/25 18:07 DAILY PRN Hypokalemia Sennosides 8.8 mg 08/12/24 21:00 08/13/24 19:59 Sennosides Syrup 8.8 Mg/5 Ml Udc PO 08/12/25 20:59 8.8 mg BID FELIPE Administration Sodium Chloride 0 ml 08/12/24 22:00 08/13/24 14:19 Sodium Chloride 0.9 % 10 Ml Syringe IV-PUSH 08/12/25 21:59 10 ml QSHIFT [facility]ELIPE Administration Sodium Chloride 10 ml 08/12/24 19:11 08/13/24 08:08 Sodium Chloride 0.9 % 10 Ml Vial.Pf INJECTION 08/12/25 19:10 10 ml PRN PRN Administration Dilution Sodium Chloride 10 ml 08/12/24 19:11 Sodium Chloride 0.9 % 10 Ml Syringe IV-PUSH 08/12/25 19:10 PRN PRN Flush A&P - Hospitalist Assessment/Plan (1) Sepsis: (2) Acute hypoxemic respiratory failure: (3) Aspiration pneumonia: Plan Acute respiratory failure with hypoxia Aspiration pneumonia UTI Septic Shock Improving. Patient has been weaned off of vasopressor support. Patient had access to Ambien, clonidine and gabapentin at her disposal, prior tobeing found unresponsive. Multifocal pneumonia is visualized on chest imaging. -Pulmonary/critical care/vent management per pulmonary team -IV Unasyn -ICU management and care for now MOIRA Worsened. In the setting of septic shock and likely acute tubular injury from low effective circulating volume -Continue to treat infections as above -Maintain MAP greater than 65 -Nephrology consulted today Polysubstance Abuse Both patient's mother and fianc? note that patient has had issues with alcohol, remote IV opioids. Has high tolerance for sedating medications. Family reportsshe has had substance issues for greater than 15 years CODE STATUS: Full code Documented By: Mike Verduzco MD [id number] Signed By: <Electronically signed by Mike Verduzco MD> 08/13/24 2767 [facility] Work Phone: [phone]) 720-837809-24-2024 Consult note Author Rolo Perez [facility] August 13, 2024 1:36pm Note Date/Time August 13, 2024 1:36pm [facility] [address] [place] [address] Nephrology Consult Note Signed Patient: German Jacob MR#: [id number] : 1990 Acct:[id number] Age/Sex: 33 / F Adm Date: 4 Loc: Room: [address] [place] [address] Type: ADM IN Attending Dr: Mike Verduzco MD Copies to: MD Mike Perez MD NO FAMILY PHYSICIAN~ Providers Consult Date: 08/13/24 Requesting Provider: Mike Verduzco MD Primary Care Provider: NO FAMILY PHYSICIAN HPI Reason for Consult: MOIRA History of Present Illness: Patient is a 33-year-old female with a past medical history of bulimia, polysubstance abuse including EtOH, tobacco, IV drug use, THC who presented to the emergency department after being found down by fianc?. Patient was recentlydischarged from a detox facility for alcohol approximately 5 days ago. She was there for 1 week. She was prescribed Vivitrol on discharge from the facility. Patient's fianc? states that she was in her normal state of health when they went to bed Monday night. When he awoke Monday morning he found her on the couch obtunded and minimally responsive. He states the patient often times willbinge and purge overnight. He heard gurgling breathing sounds and noticed foaming out of her mouth and subsequently called EMS. In the emergency department patient was initially awake and responsive and oriented to name per ER note. She then became hypoxemic requiring nonrebreather and was noted to be hypotensive and tachycardic. She was tried on BiPAP but gradually became increasingly agitated with subsequent hypoxemia and increased confusion. Patient was intubated and then self extubated requiring reintubation again. Thesecond intubation was noted to have a cuff leak and patient was intubated for third time. Chest x- ray revealed diffuse primarily perihilar infiltrate with CTscan revealing multifocal bilateral infiltrates, with the left side being worse than the right. A right IJ central venous catheter was placed as well. This morning patient remains intubated and sedated. Labs notable for leukocytosis with white count of 20.1. BUN/creatinine this morning is elevated at 32/2.9 from initial 24/1.71 on admission. Calcium is dropped to 6.6 from 8.4. Lactic acid is elevated at 4.1. Troponin was elevated at 176. Urine culture positive for E. coli. Review of Systems Review of Systems Unobtainable due to endotracheal tube PMFSH Medical History (Updated 08/13/24 @ 13:32 by Rolo Perez MD) No pertinent past medical history Surgical History (Updated 08/12/24 @ 10:16 by Jacques Logan RN) No pertinent past surgical history Family History (Updated 03/06/23 @ 15:41 by Provider Conversion) Grandparent Legacy FamHx Relation: Maternal Grand Mother Cancer Legacy FamHx Relation: Maternal Grand Mother; Legacy FamHx Problem: Diagnosed with Cancer Heart disease Legacy FamHx Relation: Maternal Grand Mother Social History Smoking Status: Unknown if ever smoked Meds Medications & Allergies Allergies No Known Allergies Allergy (Verified 08/12/24 10:09) Active Medications: Active Medications Acetaminophen (Acetaminophen 325 Mg Tablet) 650 mg PO Q6HR PRN PRN Reason: Pain Scale 1 - 3 or fever Stop: 08/12/25 18:07 Last Admin: 08/13/24 04:30 Dose: 650 mg Albuterol (Albuterol Hfa 200 Puff/18 Gm Inhaler) 6 puff VENT Q6HR [facility] Stop: 08/13/25 00:00 Last Admin: 08/13/24 05:39 Dose: 6 puff Chlorhexidine Gluconate (Chlorhexidine Gluconate 0.12% 15 Ml Udc) 15 ml MUCOUS MEM BID [facility] Stop: 08/12/25 20:59 Last Admin: 08/13/24 08:08 Dose: 15 ml Docusate Sodium (Docusate Liquid 100 Mg/10 Ml Udc) 100 mg PO BID [facility] Stop: 08/12/25 12:29 Last Admin: 08/13/24 08:08 Dose: 100 mg Heparin Sodium (Porcine) (Heparin 5,000 Unit/Ml Vial) 5,000 unit SUBCUT Q8HR [facility] Stop: 08/12/25 21:59 Last Admin: 08/13/24 05:41 Dose: 5,000 unit Norepinephrine Bitartrate (Levophed) 16 mg in 250 mls @ 4.688 mls/hr IV .Q24H [facility]; Protocol Stop: 08/12/25 12:29 Last Infusion: 08/13/24 10:50 Dose: 10 mcg/min, 9.38 mls/hr Fentanyl (Fentanyl 1,000 Mcg/100 Ml D5w) 1,000 mcg in 100 mls @ 2.5 mls/hr IV .Q24H [facility]; Protocol Last Titration: 08/13/24 08:08 Dose: 150 mcg/hr, 15 mls/hr Midazolam HCl (Versed) 100 mg in 100 mls @ 1 mls/hr IV .Q24H [facility]; Protocol Stop: 02/08/25 14:14 Last Admin: 08/13/24 00:16 Dose: 10 mg/hr, 10 mls/hr Sodium Chloride (0.9% Sodium Chloride 1,000 Ml) 1,000 mls @ 100 mls/hr IV .[id number] Stop: 08/12/25 18:14 Last Admin: 08/13/24 04:15 Dose: 100 mls/hr Magnesium Sulfate (Magnesium Sulf 2gm-*Swfi*) 2 gm in 50 mls @ 25 mls/hr IV DAILY PRN PRN Reason: Magnesium Level < 1.7 Stop: 08/12/25 18:07 Last Infusion: 08/13/24 07:46 Dose: Infused Ampicillin Sodium/Sulbactam Sodium (Unasyn) 1.5 gm in 100 mls @ 200 mls/hr IV Q6H [facility] Last Admin: 08/13/24 07:31 Dose: 200 mls/hr Azithromycin (Zithromax) 500 mg in 250 mls @ 250 mls/hr IV Q24H [facility] Last Infusion: 08/13/24 07:00 Dose: Infused Magnesium Sulfate (Magnesium Sulf 4 Gm-*Swfi*) 4 gm in 100 mls @ 25 mls/hr IV ONCE ONE Stop: 08/13/24 12:46 Last Admin: 08/13/24 09:19 Dose: 25 mls/hr Sodium Phosphate 45 mmol/ (Sodium Chloride) 265 mls @ 44.167 mls/hr IV ONCE ONE Stop: 08/13/24 14:46 Last Admin: 08/13/24 10:03 Dose: 44.17 mls/hr Magnesium Hydroxide (Magnesium Hydroxide Susp 30 Ml Udc) 30 ml PO DAILY PRN PRN Reason: Constipation Stop: 08/12/25 12:28 Midazolam HCl (Midazolam/Pf 2 Mg/2 Ml Vial) 1 mg IV-PUSH Q15M PRN PRN Reason: Sedation goals Stop: 02/08/25 14:02 Last Admin: 08/12/24 14:35 Dose: 1 mg Ondansetron HCl (Ondansetron 4 Mg/2 Ml Vial) 4 mg IV-PUSH Q8H PRN PRN Reason: Nausea And Vomiting Stop: 08/12/25 18:07 Pantoprazole Sodium (Pantoprazole 40 Mg Vial) 40 mg IV-PUSH DAILY [facility] Stop: 08/13/25 08:59 Last Admin: 08/13/24 08:08 Dose: 40 mg Potassium Chloride (Potassium Chloride Er 20 Meq Tab.Er.Prt) 40 meq PO DAILY PRN PRN Reason: Hypokalemia Stop: 08/12/25 18:07 Sennosides (Sennosides Syrup 8.8 Mg/5 Ml Udc) 8.8 mg PO BID [facility] Stop: 08/12/25 20:59 Last Admin: 08/13/24 08:08 Dose: 8.8 mg Sodium Chloride (Sodium Chloride 0.9 % 10 Ml Syringe) 0 ml IV-PUSH QSHIFT [facility] Stop: 08/12/25 21:59 Last Admin: 08/13/24 06:39 Dose: Not Given Sodium Chloride (Sodium Chloride 0.9 % 10 Ml Vial.Pf) 10 ml INJECTION PRN PRN PRN Reason: Dilution Stop: 08/12/25 19:10 Last Admin: 08/13/24 08:08 Dose: 10 ml Sodium Chloride (Sodium Chloride 0.9 % 10 Ml Syringe) 10 ml IV-PUSH PRN PRN PRN Reason: Flush Stop: 08/12/25 19:10 Exam Physical Exam Vital Signs: Temp Pulse Resp BP Pulse Ox O2 Del Method O2 Flow Rate 101.6 F H 96 22 111/66 100 Mechanical Ventilation 15 08/13/24 04:00 08/13/24 10:50 08/13/24 07:00 08/13/24 10:50 08/13/24 07:00 08/13/24 08:00 08/12/24 12:14 FiO2 40 08/13/24 10:00 Narrative: General: Appears comfortable and not in distress Heart: S1-S2, no rub Lung: Bilateral air entry, no wheezing or crackles Abdomen: Soft, positive bowel sounds Extremities: No edema, no cyanosis Head: Atraumatic, normocephalic Ear: No external ear redness or tenderness Eyes: No pallor or redness Neck: No JVD or visible mass Skin: No rashes , warm to touch PATIENT MANAGER: Intubated and sedated Musculoskeletal: No swelling or limitation of movement of the large joints Const Orientation: not alert and not awake HEENT Head: normal to inspection, normocephalic and atraumatic Ears: external ears normal Nose: external nose normal Face and sinus: normal facial exam Mouth: other (7.5 mm ID ET tube) Eyes General: appearance normal, both eyes and all related structures Neck Neck: normal visual inspection Chest Chest palpation & inspection: normal inspection of the chest Resp Effort & Inspection: normal respiratory effort Auscultation: clear to auscultation bilaterally Cardio Rate: regular rate Rhythm: regular rhythm Heart Sounds: S1 normal, S2 normal and no murmurs GI Inspection: normal to inspection and non-distended Palpation: soft and nontender General: deferred Skin General: no rashes or lesions noted Extrem General: normal to inspection and no pedal edema Results - Nephrology Labs 08/13/24 04:10 08/13/24 04:10 Labs: 08/12/24 08/13/24 12:48 04:10 BUN 32 H Creatinine 2.89 H D Phosphorus 1.5 L Albumin 2.9 L D Urine Color Yellow Urine Appearance Cloudy A Urine pH 6.0 Ur Specific Lacey 1.015 Urine Protein 50 H Urine Glucose (UA) Normal Urine Ketones Trace H Urine Occult Blood Negative Urine Nitrite Negative Ur Leukocyte Esterase 1+ H Urine RBC 1-2 Urine WBC 5-9 H Urine Bacteria Rare Radiology Impressions Impressions - last 24 hours: Impressions Head CT 08/12/24 10:14 IMPRESSION: NO ACUTE INTRACRANIAL ABNORMALITY. Impression dictated by: Shavon Astorga M.D.08/12/2024 1:57 PM Dictation Location: [place] [address] Chest CTA 08/12/24 10:27 IMPRESSION: NO OBVIOUS PULMONARY EMBOLISM WITHIN LIMITS OF RESPIRATORY MOTION. MULTIFOCAL BILATERAL INFILTRATES, LEFT SIDE WORSE THAN RIGHT. CT ABDOMEN AND PELVIS WITH CONTRAST COMPARISON: None Spiral images were obtained through the abdomen and pelvis following 90 mL Isovue-370. This CT exam was performed using one or more following dose reduction techniques: Automated exposure control, adjustment of the mA and/or kVaccording to patient size, or use of iterative reconstruction technique. The gallbladder is borderline hydropic. The wall is top normal in thickness. No calcified gallstones are identified. There is pericholecystic fluid though there is also a small amount of perihepatic ascites. There is periportal edema. No obvious intrahepatic lesions are identified however there is artifact from patient's arms . The spleen is within normal limits for size. The pancreas is normal in size and contour. There is no adrenal nodularity. The renal nephrograms are symmetric. No hydronephrosis is noted. The aorta is normal caliber. The IVC is dilated. No portal vein thrombosis is noted. There is hypodensity at the root of the mesentery which might be edema. No enlarged lymph nodes are visualized. The small bowel loops are within normal limits for caliber. Stool is seen along the colon. There is subtle levoscoliotic curvature. Images through the pelvis show nondistended small bowel. The appendix is not well demonstrated. There is stool at the distal colon. No diverticular diseaseis noted. Bilateral ovarian follicles are seen. The urinary bladder contains aFoley catheter along with a small amount of air that was likely introduced iatrogenically. The urinary bladder is still moderately distended. No pelvic ascites is present. There is increased density within the mesentery centrally at the upper pelvis. IMPRESSION: HYDROPIC GALLBLADDER, WITHOUT STONES. PERIPORTAL, PERICHOLECYSTIC AND MESENTERIC EDEMA ALONG WITH A SMALL AMOUNT OF PERIHEPATIC ASCITES. NO BOWEL OR URINARY TRACT OBSTRUCTION. NO OTHER ACUTE FINDINGS. Impression dictated by: Shavon Astorga M.D.08/12/2024 2:12 PM Dictation Location: [facility] Chest X-Ray 08/12/24 12:31 IMPRESSION: ET TUBE IN SATISFACTORY POSITION. WORSENING LEFT LUNG AIRSPACE DISEASE. Impression dictated by: Vadim Mabry Jr., D.O.08/12/2024 12:42 PM Dictation Location: [facility] Chest X-Ray 08/12/24 14:18 IMPRESSION: LIFE-SUPPORT DEVICES, DESCRIBED. BILATERAL INFILTRATES. Impression dictated by: Shavon Astorga M.D.08/12/2024 2:59 PM Dictation Location: [facility] Chest X-Ray 08/12/24 15:45 IMPRESSION: Interval placement of a right IJ line with the tip in the superior vena cava distally. No pneumothorax. Otherwise unchanged chest. Impression dictated by: Jb Cerrato M.D.08/12/2024 4:14 PM Dictation Location: [place] [address] Chest X-Ray 08/13/24 05:00 IMPRESSION: PERSISTENT LEFT AND IMPROVING RIGHT-SIDED PARENCHYMAL CHANGES. Impression dictated by: Shavon Astorga M.D.08/13/2024 7:48 AM Dictation Location: [place] [address] Any impression(s) listed above is documentation that was entered by the reading physician into a diagnostic report(s) for German Jacob. I have reviewed the report(s) and am incorporating any findings in the treatment plan of this patient where applicable. A&P - Nephrology Assessment/Plan (1) MOIRA (acute kidney injury): Assessment/Problem Details: She likely has oliguric ATN in setting of septic shock. She has no evidence of obstructive uropathy on CAT scan. Her renal function is declining. (2) Acute hypoxemic respiratory failure: Assessment/Problem Details: She was found to have a bilateral infiltrate possibly due to the aspiration. Pulmonary has been following patient. (3) Sepsis with hypotension: Assessment/Problem Details: She has a positive urine culture for E. coli. She initially has hypertension and was getting with aggressive fluid resuscitation. Blood pressure improved with hydration (4) Hypomagnesemia: Assessment/Problem Details: She has hypomagnesemia likely malnutrition. (5) Hypophosphatemia: Assessment/Problem Details: She has hypophosphatemia due to the refeeding syndrome. Plan * No need for hemodialysis now. Will continue to assess its needs on regular basis. * Continue fluid resuscitation * Keep the MAP 65 mmHg * Continue Unasyn for presumed aspiration pneumonia and UTI * Continue vent management as per the pulmonary team. * Will monitor electrolytes and phosphorus and replete as needed. * Thanks for consult. Will continue follow-up with you. Please feel free to call us with any question. Documented By: Rolo Perez MD 08/13/24 1206 Signed By: <Electronically signed by Rolo Perez MD> 08/13/[address] [facility] Work Phone: 1(826) 693-185509-24-2024 Progress note Author Renny Multani [facility] August 13, 2024 10:52am Note Date/Time August 13, 2024 10:52am [facility] [address] [place] [address] Pulmonology Progress Note Signed Patient: German Jacbo MR#: [id number] : 1990 Acct:[id number] Age/Sex: 33 / F Adm Date: 4 Loc: Room: [address] [place] [address] Type: ADM IN Attending Dr: Mike Verduzco MD Copies to: ~ Date of Service: 08/13/2024 Subjective Subjective Narrative: Patient remains difficult to sedate despite fentanyl infusion at 150 mcg/h as well as midazolam infusion at 10 mg/h. Patient's pressors have been decreased slightly to 20 mcg/min. Exam Physical Exam Vital Signs: Temp Pulse Resp BP Pulse Ox O2 Del Method O2 Flow Rate 101.6 F H 93 22 107/64 100 Mechanical Ventilation 15 08/13/24 04:00 08/13/24 10:04 08/13/24 07:00 08/13/24 10:04 08/13/24 07:00 08/13/24 08:00 08/12/24 12:14 FiO2 40 08/13/24 10:00 Const Nutritional Appearance: average body habitus Orientation: not alert and not awake HEENT Head: normal to inspection, normocephalic and atraumatic Ears: external ears normal Nose: external nose normal (NG tube in place) Face and sinus: normal facial exam Mouth: other (7.5 mm ID ET tube) Eyes Eyelids: eyelids normal (With glitter noted) Neck Neck: normal visual inspection and no lymphadenopathy Chest Chest palpation & inspection: normal inspection of the chest Resp Auscultation: clear to auscultation bilaterally, no rales, no rhonchi and no wheezes Cardio Rate: regular rate Rhythm: regular rhythm Heart Sounds: S1 normal, S2 normal, no gallops, no murmurs and no rubs GI Inspection: normal to inspection Palpation: soft and nontender Auscultation: hypoactive bowel sounds Rectal Exam: deferred General: deferred Skin General: no rashes or lesions noted (warm and dry) Extrem General: no pedal edema Objective Intake and Output I&O - Last 24 Hours: Intake & Output 08/12/24 08/13/2408/13/24 23:59 07:59 15:59 Intake Total 350 / 3492.9 1950 / 1950 Output Total 570 / 570 100 / 100 Balance -220 / 2922.9 1850 / 1850 Weight 201 lb 15.095 oz 219 lb 2.232 oz Labs 08/13/24 04:10 08/13/24 04:10 Microbiology Micro: Microbiology 3 08/12/24 12:48 Urine Culture - Preliminary Urine - Navarro Catheter Gram Negative Bacilli 08/12/24 19:10 Respiratory Panel (PCR) - Final Nasopharyngeal Imaging and Cardiology Chest x-ray: Status: image reviewed by me Additional comments: Date of Service: 08/13/24 XR/XR chest 1V portable: pneumonia; respiratory failure PORTABLE AP RECUMBENT CHEST 0517 hours CLINICAL HISTORY: Respiratory distress on ventilator COMPARISON: 08/12/2024 Tubes and lines are unchanged position. The patchy airspace opacities on the right have improved. There are persistent diffuse groundglass opacities on the left. No obvious effusion or pneumothorax is seen on this recumbent view. The cardiac and mediastinal contours are stable. XR/XR chest 1V portable IMPRESSION: PERSISTENT LEFT AND IMPROVING RIGHT-SIDED PARENCHYMAL CHANGES. Additional Results Results Comments: 08/13/24 05:06 ABG pH 7.51 H ABG pCO2 26.0 L* ABG pO2 164.3 H* ABG HCO3 20.3 L ABG Total CO2 21.1 L ABG O2 Saturation 99.4 ABG O2 Content 7.1 ABG Base Excess -1.6 22/500/70/5 Assessment/Plan Assessment/Plan (1) Acute hypoxemic respiratory failure: (2) Sepsis: (3) Pneumonia: (4) Altered mental status: (5) UTI (urinary tract infection): Plan Hospital day #1, ventilator day #1, right internal jugular central venous catheter day #1 for patient found unresponsive with bilateral infiltrates with history that could certainly suggest aspiration though certainly cannot exclude possible standard community-acquired pneumonia. The patient was also noted to have a gram-negative bacillus in the urine. Patient was started on Unasyn for presumed aspiration which should also adequately cover nonresistant gram-negative bacilli in the urine. Patient's pressure requirements have decreased slightly. We will continue supportive care with the biggest concern being difficulty with sedating the patient. Electrolytes were corrected with administration of sodium phosphate and magnesium. Patient has appropriate DVT and stress ulcer prophylaxis. Await nutritional recommendations per dietitian and can start nutrition tomorrow. Continue supportive care. Documented By: Renny Multani MD 4 [id number] Signed By: <Electronically signed by MD Renny Multani> 08/13/24 1058 [facility] Work Phone: 1(498) 311-309609-23-2024 History and physical note Author Mike Verduzco [facility] August 12, 2024 8:10pm Note Date/Time August 12, 2024 6:39pm [facility] [address] [place] [address] Hospitalist H&P Signed Patient: German Jacob MR#: [id number] : 1990 Acct:[id number] Age/Sex: 33 / F Adm Date: 4 Loc: Room: [address] [place] [address] Type: ADM IN Attending Dr: Mike Verduzco MD Copies to: Mike Verduzco MD NO FAMILY PHYSICIAN~ HPI DATE OF EXAMINATION: 08/12/24 CHIEF COMPLAINT: Found Unresponsive HISTORY OF PRESENT ILLNESS: Ms. Jacob is a 33-year-old female with PMH of bulimia, polysubstance abuse including: EtOH, tobacco, history of IVDU, THC who presented to the emergency department after being found down by her fiance. Patient is intubated and sedated on my assessment, and thus patient's fianc? was called and discussed recent history. Patient's fiwanda Robertson stated that patient was in her normal state of health up until last night around 1030?11 PM. Patient lives with her fiwanda Osorion. He notes that she was recently in detox facility for alcohol approximately 4 days ago. She was there for approximately 1 week. She was prescribed Vivitrol on discharge from that facility. Patient reportedly had some tabs of clonidine, gabapentin and zolpidem as well from previous providers. He notes that she was in her normal state of health when he went to bed last night. He woke up this morning, and found patient on the couch obtunded and minimally responsive. He notes that patient often times will binge and purge overnight, and thought that her initial gurgling breathing sounds were related to that, but then he noticed foaming out of her mouth and nose and thus decided to call EMS. She was brought into the emergency department here for further inpatient workup. In the emergency department, patient was obtunded, hypoxic and was essentially intubated on arrival. Patient was severely hypotensive as well, and ultimately required IV vasopressor support including norepinephrine and epinephrine. Patient was receiving these through peripheral IV when she arrived to the ICU however. Lab work was noteworthy for anemia 10.4, creatinine elevated at 1.71. Patient was started on IV fluids, she did receive Narcan on initial presentationand self extubated herself. Unclear if the Narcan clearly reversed her initial obtundation. Patient was reintubated again and then reintubated a third time when cuff leak was not improving. Case was discussed between myself and ED attending and patient was admitted to hospitalist service for further management. Review of Systems Review of Systems Review of systems: 10 point ROS reviewed and is negative except for that which is noted above in [facility] Medical History (Updated 08/12/24 @ 20:09 by Mike Verduzco MD) No pertinent past medical history Surgical History (Updated 08/12/24 @ 10:16 by Jacques Logan RN) No pertinent past surgical history Family History (Updated 03/06/23 @ 15:41 by Provider Conversion) Grandparent Legacy FamHx Relation: Maternal Grand Mother Cancer Legacy FamHx Relation: Maternal Grand Mother; Legacy FamHx Problem: Diagnosed with Cancer Heart disease Legacy FamHx Relation: Maternal Grand Mother Social History Smoking Status: Unknown if ever smoked Meds Medications and Allergies Allergies No Known Allergies Allergy (Verified 08/12/24 10:09) Exam Physical Exam Vital Signs: Temp Pulse Resp BP Pulse Ox O2 Del Method O2 Flow Rate 99.1 F H 82 12 128/61 100 Mechanical Ventilation 15 08/12/24 10:17 08/12/24 17:01 08/12/24 17:01 08/12/24 17:01 08/12/24 17:01 08/12/24 17:01 08/12/24 12:14 FiO2 100 08/12/24 15:25 Narrative: Constitutional: Young WF, intubated, sedated HEENT: ET and OG tubes in place Cardiovascular: RRR, no M/R/G, normal S1 and S2, no JVD Respiratory: Lungs clear to auscultation bilaterally, no wheezes, rales or rhonchi GI: Soft, normoactive bowel sounds : Navarro catheter in place draining clear yellow urine Neuro: Intubated and sedated Extremities: No clubbing, cyanosis or edema Psych: Intubated and sedated Results - Hospitalist H&P Lab Results Labs: Laboratory Last Values Corrected WBC 7.5 X10E3/uL (3.8-11.6) 08/12/24 10:35 Uncorrected WBC Count 7.5 x10E3/uL (3.8-11.6) 08/12/24 10:35 RBC 3.16 X10E6/uL (3.60-5.00) L 08/12/24 10:35 Hgb 10.4 g/dL (11.8-15.4) L 08/12/24 10:35 Hct 31.9 % (34.0-46.4) L 08/12/24 10:35 MCV 101.1 fl (80-100) H 08/12/24 10:35 MCH 33.1 pg (24.7-34.3) 08/12/24 10:35 MCHC 32.7 g/dL (32.0-35.0) 08/12/24 10:35 RDW 16.6 % (11.9-15.3) H 08/12/24 10:35 Plt Count 165 x10E3/uL (150-450) 08/12/24 10:35 MPV 9.8 fl (6.3-10.7) 08/12/24 10:35 Neut % (Auto) 68.5 % (.) 08/12/24 10:35 Lymph % (Auto) 21.1 % (.) 08/12/24 10:35 Hancock % (Auto) 10.2 % (.) 08/12/24 10:35 Eos % (Auto) 0.0 % (.) 08/12/24 10:35 Baso % (Auto) 0.2 % (.) 08/12/24 10:35 Nucleat RBC Rel Count 0.1 /100 WBC (0-0.5) 08/12/24 10:35 Neut # (Auto) 5.2 x10E3/uL (1.8-7.7) 08/12/24 10:35 Lymph # (Auto) 1.6 x10E3/uL (1.00-4.8) 08/12/24 10:35 Hancock # (Auto) 0.8 x10E3/uL (0.0-0.8) 08/12/24 10:35 Eos # (Auto) 0.0 x10E3/uL (0.0-0.45) 08/12/24 10:35 Baso # (Auto) 0.0 x10E3/uL (0.0-0.2) 08/12/24 10:35 Monocyte Dist Width 18.25 % (0.00-20.00) 08/12/24 10:35 PT 13.4 Seconds (9.0-12.9) H 08/12/24 10:35 INR 1.2 08/12/24 10:35 APTT 25.7 Seconds (25.1-36.5) 08/12/24 10:35 Sample Site Left brachial 08/12/24 15:51 ABG pH 7.36 (7.35-7.45) 08/12/24 15:51 ABG pCO2 37.2 mmHg (35.0-45.0) 08/12/24 15:51 ABG pO2 157.2 mmHg (80.0-100.0) H* 08/12/24 15:51 ABG HCO3 20.5 mmol/L (23.0-29.0) L 08/12/24 15:51 ABG Total CO2 21.6 mmol/L (23.0-27.0) L 08/12/24 15:51 ABG O2 Saturation 99.3 % (95.0-100.0) 08/12/24 15:51 ABG O2 Content 7.1 mmol/L (6.6-9.7) 08/12/24 15:51 ABG Base Excess -4.4 mmol/L (-3.0-3.0) L 08/12/24 15:51 Set Respiration Rate 22 08/12/24 15:51 O2 Delivery Device Non rebreather mask 08/12/24 10:17 Vent Mode Ac 08/12/24 15:51 FiO2 100 % 08/12/24 15:51 Tidal Volume 500 mL 08/12/24 15:51 PEEP 5 cmH2O 08/12/24 15:51 Critical Value 08/12/24 15:51 PHA Creatinine Clear 55.91 08/12/24 10:35 Sodium 139 mmol/L (136-145) 08/12/24 10:35 Potassium 4.8 mmol/L (3.5-5.1) 08/12/24 10:35 Chloride 97 mmol/L (98-107) L 08/12/24 10:35 Carbon Dioxide 28.7 mmol/L (21.0-31.0) 08/12/24 10:35 Anion Gap 18.1 mEq/L (6.0-15.0) H 08/12/24 10:35 BUN 24 mg/dL (7-25) 08/12/24 10:35 Creatinine 1.71 mg/dL (0.60-1.20) H 08/12/24 10:35 Est GFR (CKD-EPI) 40.324 mL/Min 08/12/24 10:35 Glucose 63 mg/dL (70-100) L 08/12/24 10:35 POC Glucose 191 mg/dl 08/12/24 13:57 Lactic Acid 3.2 mmol/L (0.5-2.2) H* 08/12/24 17:33 Calcium 8.4 mg/dL (8.6-10.3) L 08/12/24 10:35 Total Bilirubin 0.7 mg/dl (0.3-1.0) 08/12/24 10:35 AST 194 U/L (13-39) H 08/12/24 10:35 ALT 131 U/L (7-52) H 08/12/24 10:35 Alkaline Phosphatase 117 U/L (34-104) H 08/12/24 10:35 Ammonia 35 umol/L (11-35) 08/12/24 10:35 Total Creatine Kinase 477 U/L (30-223) H 08/12/24 10:35 Troponin I High Sens 176.4 pg/mL (0.0-15.0) H* 08/12/24 10:35 Total Protein 8.3 gm/dL (6.4-8.9) 08/12/24 10:35 Albumin 4.3 gm/dL (3.5-5.7) 08/12/24 10:35 Globulin 4.0 gm/dL 08/12/24 10:35 Albumin/Globulin Ratio 1.1 08/12/24 10:35 Triglycerides 126 mg/dL (35-149) 08/12/24 17:33 TSH 3rd Generation 0.45 uIU/mL (0.45-5.33) 08/12/24 10:35 Urine Color Yellow (Yellow) 08/12/24 12:48 Urine Appearance Cloudy (Clear) A 08/12/24 12:48 Urine pH 6.0 (5.0-9.0) 08/12/24 12:48 Ur Specific Lacey 1.015 (1.001-1.030) 08/12/24 12:48 Urine Protein 50 mg/dL (Negative) H 08/12/24 12:48 Urine Glucose (UA) Normal mg/dL (Normal) 08/12/24 12:48 Urine Ketones Trace (Negative) H 08/12/24 12:48 Urine Occult Blood Negative (Negative) 08/12/24 12:48 Urine Nitrite Negative (Negative) 08/12/24 12:48 Urine Bilirubin Negative (Negative) 08/12/24 12:48 Urine Urobilinogen Normal mg/dL (Normal) 08/12/24 12:48 Ur Leukocyte Esterase 1+ (Negative) H 08/12/24 12:48 Urine RBC 1-2 /HPF (0-4) 08/12/24 12:48 Urine WBC 5-9 /HPF (0-4) H 08/12/24 12:48 Urine WBC Clumps Occasional /LPF (None Seen) H 08/12/24 12:48 Ur Squamous Epith Cells 1-2 /HPF (0-2) 08/12/24 12:48 Urine Bacteria Rare /HPF (None Seen) 08/12/24 12:48 Hyaline Casts 0-8 /LPF (0-8) 08/12/24 12:48 Other Casts 5-9 /LPF (None Seen) H 08/12/24 12:48 Urine Mucus Rare /LPF 08/12/24 12:48 Urine HCG, Qual Negative 08/12/24 12:48 Urine Opiates Screen Negative (Negative) 08/12/24 12:48 Ur Barbiturates Screen Negative (Negative) 08/12/24 12:48 Ur Phencyclidine Scrn Negative (Negative) 08/12/24 12:48 Ur Amphetamines Screen Negative (Negative) 08/12/24 12:48 U Benzodiazepines Scrn Positive (Negative) H 08/12/24 12:48 Urine Cocaine Screen Negative (Negative) 08/12/24 12:48 U Marijuana (THC) Screen Positive (Negative) H 08/12/24 12:48 Ethyl Alcohol < 10 mg/dL 08/12/24 10:35 % Ethyl Alcohol TNP 08/12/24 10:35 ABG Interpretation ABG results: 08/12/24 08/12/24 10:17 15:51 ABG pH 7.36 7.36 ABG pCO2 43.2 37.2 ABG pO2 63.2 L 157.2 H* ABG HCO3 23.9 20.5 L ABG Total CO2 25.2 21.6 L ABG O2 Saturation 92.3 L 99.3 ABG O2 Content 6.1 L 7.1 ABG Base Excess -1.6 -4.4 L Assessment & Plan Assessment/Plan (1) Sepsis: (2) Acute hypoxemic respiratory failure: (3) Aspiration pneumonia: Plan Acute respiratory failure with hypoxia Aspiration pneumonia Septic shock Possible polysubstance use, drug ingestion History somewhat unclear as to what occurred between 11 PM and early this morning, but patient has been dealing with polysubstance use including history of IV drug use years prior, THC, benzos found drug screen (not prescribed by detox center). Patient also had Ambien, clonidine and gabapentin at her disposal as well. Multifocal pneumonia is visualized on chest imaging. -Pulmonary/critical care/vent management per pulmonary team -IV Unasyn -IV vasopressor support with Levophed (maintain MAP greater than 65); wean as tolerated -ICU management and care for now to ensure washout of possible drug ingestion CODE STATUS: Full code IP vs OBS Justification Based on differential dx, clinical care plan, and risk of adverse events, if untreated, in my clinical judgement this patient requires an acute care setting as: INPATIENT because of an expectation of an over 2 midnight stay. Estimated length of stay (# of days): 5 Documented By: Mike Verduzco MD [id number] Signed By: <Electronically signed by Mike Verduzco MD> 08/12/242009 [facility] Work Phone: 1(808) 621-822409-23-2024 Consult note Author Renny Multani [facility] August 12, 2024 7:11pm Note Date/Time August 12, 2024 7:11pm [facility] [address] [place] [address] Pulmonology Consult Note Signed Patient: German Jacob MR#: [id number] : 1990 Acct:[id number] Age/Sex: 33 / F Adm Date: 4 Loc: Room: [address] [place] [address] Type: ADM IN Attending Dr: Mike Verduzco MD Copies to: MD Mike Solano MD FAMILY PHYSICIAN~ HPI Date/Time of Consultation: Date of Service: 08/12/2024 Time of Service: 19:00 Consulting Provider: Renny Multani Requesting Provider: Mike Verduzco History of Present Illness History of present illness: Ms. Jacob is a 33 year old female seen at the request of the hospitalist service for ICU/critical care management. Patient was brought to the [facility] emergency department per [facility] for alteredmental status. Patient reportedly was just discharged from an alcohol detoxification unit 4 days prior and was noted to be on the couch unresponsive and last noted to be well at 2330 the night prior. Patient was reportedly foaming at the mouth but due to altered mental status EMS was contacted. In theemergency department, patient initially was awake and responsive and was oriented to name per emergency room physician note. She was noted to be hypoxemic requiring nonrebreather face mask and was noted to be hypotensive and tachycardic. Patient was tried on BiPAP but it gradually developed increasing agitation with subsequent hypoxemia and increasing confusion. Patient was ultimately intubated with initial chest x-ray revealing potential infiltrate with patient subsequently self extubating requiring reintubation with second tube ultimately noted to have cuff leak and patient was subsequently intubated athird time. Chest x-ray reveals diffuse primarily perihilar infiltrate with CT scan revealing again patchy perihilar infiltrates involving all 5 lobes with relative sparing of the apices in the bases. There was no evidence of a pulmonary vascular filling defect. Patient is sedated with Versed and fentanyl and patient was volume resuscitated with addition of norepinephrine and epinephrine though through peripheral IV despite placement of a right internal jugular central venous catheter. Review of Systems Review of Systems Unobtainable due to mental status and Unobtainable due to endotracheal tube [facility] Medical History (Updated 08/12/24 @ 16:22 by Chase Dunn DO) No pertinent past medical history Surgical History (Updated 08/12/24 @ 10:16 by Jacques Logan RN) No pertinent past surgical history Family History (Updated 03/06/23 @ 15:41 by Provider Conversion) Grandparent Legacy FamHx Relation: Maternal Grand Mother Cancer Legacy FamHx Relation: Maternal Grand Mother; Legacy FamHx Problem: Diagnosed with Cancer Heart disease Legacy FamHx Relation: Maternal Grand Mother Social History Smoking Status: Unknown if ever smoked Meds Medications and Allergies Allergies No Known Allergies Allergy (Verified 08/12/24 10:09) Exam Physical Exam Vital Signs: Temp Pulse Resp BP Pulse Ox O2 Del Method O2 Flow Rate 98.3 F 84 22 126/82 100 Mechanical Ventilation 15 08/12/24 18:00 08/12/24 18:00 08/12/24 18:00 08/12/24 18:00 08/12/24 18:00 08/12/24 18:37 08/12/24 12:14 FiO2 80 08/12/24 18:37 Const Nutritional Appearance: average body habitus Orientation: not alert and not awake HEENT Head: normal to inspection, normocephalic and atraumatic Ears: external ears normal Nose: external nose normal (NG tube in place) Face and sinus: normal facial exam Mouth: other (7.5 mm ID ET tube) Eyes Eyelids: eyelids normal (With glitter noted) Neck Neck: normal visual inspection and no lymphadenopathy Chest Chest palpation & inspection: normal inspection of the chest Resp Auscultation: clear to auscultation bilaterally, no rales, no rhonchi and no wheezes Cardio Rate: regular rate Rhythm: regular rhythm Heart Sounds: S1 normal, S2 normal, no gallops, no murmurs and no rubs GI Inspection: normal to inspection Palpation: soft and nontender Auscultation: hypoactive bowel sounds Rectal Exam: deferred General: deferred Skin General: no rashes or lesions noted (warm and dry) Extrem General: no pedal edema Results - Pulmonology Intake and Output I&O - Last 24 Hours: Intake & Output 08/12/24 08/12/24 08/12/24 07:59 15:59 23:59 Intake Total 3142.9 / 3142.9 Output Total 550 / 550 Balance 3142.9 / 2592.9 -550 / 2592.9 Weight 201 lb 15.095 oz 201 lb 15.095 oz Labs 08/12/24 10:35 08/12/24 10:35 Microbiology Micro: 08/12/24 12:48 Urine Culture - Pending Urine - Navarro Catheter 08/12/24 10:35 Blood Culture - Pending Blood - Right Antecubital 08/12/24 10:42 Blood Culture - Pending Blood Imaging and Cardiology CT scan - chest: Status: image reviewed by me Additional comments: Date of Service: 08/12/24 CT/CT angio chest PE protocol: hypoxic, ams ([id number]) CT/CT abdomen pelvis w con: ams CLINICAL DATA: Overdose with decreased responsiveness and hypoxia. CT PULMONARY ANGIOGRAM WITH CONTRAST COMPARISON: None TECHNIQUE: Spiral images were obtained through the chest following intravenous administration of 90 mL of Isovue-370. Images were reviewed using both narrow and wide window settings. Sagittal, coronal and 3 D volume-rendered reconstructions were performed and reviewed. This CT exam was performed using one or more following dose reduction techniques: Automated exposure control, adjustment of the mA and/or kV according to patient size, or use of iterative reconstruction technique. FINDINGS: ET and OG tubes are present. The heart is not top normal in size. There is no pericardial effusion. No aortic aneurysm or dissection is seen. There is adequate opacification of the pulmonary arteries. No obvious emboli are identified however assessment of some of the peripheral branches is Limited by respiratory motion.. No pathologic lymphadenopathy is seen. Patchy airspace opacities are seen throughout both lungs. There is also more focal consolidation in the left perihilar region. No pleural effusion or pneumothorax is noted. CT/CT angio chest PE protocol IMPRESSION: NO OBVIOUS PULMONARY EMBOLISM WITHIN LIMITS OF RESPIRATORY MOTION. MULTIFOCAL BILATERAL INFILTRATES, LEFT SIDE WORSE THAN RIGHT. CT ABDOMEN AND PELVIS WITH CONTRAST COMPARISON: None Spiral images were obtained through the abdomen and pelvis following 90 mL Isovue-370. This CT exam was performed using one or more following dose reduction techniques: Automated exposure control, adjustment of the mA and/or kV according to patient size, or use of iterative reconstruction technique. The gallbladder is borderline hydropic. The wall is top normal in thickness. No calcified gallstones are identified. There is pericholecystic fluid though there is also asmall amount of perihepatic ascites. There is periportal edema. No obvious intrahepatic lesions are identified however there is artifact from patient's arms . The spleen is within normal limits for size. The pancreas is normal in size and contour. There is no adrenal nodularity. The renal nephrograms are symmetric. No hydronephrosis is noted. The aorta is normal caliber. The IVC is dilated. No portal vein thrombosis is noted. There is hypodensity at the root of the mesentery which might be edema. No enlarged lymph nodes are visualized. The small bowel loops are within normal limits for caliber. Stool is seen along the colon. There is subtle levoscoliotic curvature. Images through the pelvis show nondistended small bowel. The appendix is not well demonstrated. There is stool at the distal colon. No diverticular disease is noted. Bilateral ovarian follicles are seen. The urinary bladder contains a Navarro catheter along with a small amount of air that was likely introduced iatrogenically. The urinary bladder is still moderately distended. No pelvic ascites is present. There is increased density within the mesentery centrally atthe upper pelvis. IMPRESSION: HYDROPIC GALLBLADDER, WITHOUT STONES. PERIPORTAL, PERICHOLECYSTIC AND MESENTERIC EDEMA ALONG WITH A SMALL AMOUNT OF PERIHEPATIC ASCITES. NO BOWEL OR URINARY TRACT OBSTRUCTION. NO OTHER ACUTE FINDINGS. Additional Results Results Comments: 08/12/24 08/12/24 10:17 15:51 ABG pH 7.36 7.36 ABG pCO2 43.2 37.2 ABG pO2 63.2 L 157.2 H* ABG HCO3 23.9 20.5 L ABG Total CO2 25.2 21.6 L ABG O2 Saturation 92.3 L 99.3 ABG O2 Content 6.1 L 7.1 ABG Base Excess -1.6 -4.4 L 22/500/100/5 Assessment/Plan (1) Acute hypoxemic respiratory failure: (2) Pneumonia: (3) Altered mental status: (4) Sepsis: Plan Hospital day #0, ventilator day #0, right internal jugular central venous catheter day #0 for patient found unresponsive with bilateral infiltrates with history that could certainly suggest aspiration though certainly cannot exclude possible standard community-acquired pneumonia. This is superimposed on hypotension with evidence of mild shock liver and acute kidney injury. Urinalysis is fairly unremarkable with toxicology screen positive for benzodiazepines and marijuana. Alcohol level was 0. Patient was given a dose of vancomycin and Zosyn in the emergency department but overall, feel that the patient does not have significant increase for healthcare associated pathogens with likely community-acquired pneumonia versus aspiration. Case was discussedwith hospital service and will start patient on Unasyn and will also start patient on azithromycin. We will wean epinephrine and norepinephrine as tolerated with central venous pressures being monitored to try and keep at [id number]. We will check a serum cortisol level to determine if there is any concern for adrenal insufficiency. Will make sure patient has appropriate DVT and stress ulcer prophylaxis. Endotracheal tube will need to go down to centimeters. We will continue supportive care and follow-up on cultures. Documented By: Renny Multani MD 1900 Signed By: <Electronically signed by MD Renny Multani> 08/12/241910 [facility] Work Phone: 1(676) 267-299104-17-2023 Evaluation note* Encounter Date Diagnosis Assessment Notes Treatment Notes Treatment Clinical Notes Feb, Sore throat (ICD-10 - J02.9) Feb, Acute pharyngitis due to other specified organisms (ICD-10 - J02.8) Pharyngitis/tonsil lopharyngitis: adult home care material was printed Drink plenty fluids, get plenty of rest. Take the amoxicillin and prednisone as prescribed until gone. Take Tylenol or Motrin as needed for aches pains or fevers. Consider drinking warm tea with honey for comfort. Follow-up with your family physician if no improvement in 2 to 3 days Feb, Other specified bacterial agents as the cause of diseases classified elsewhere (ICD-10 - B96.89) Fab Other 02-28-2023 Hospital course Narrative* Radha Tapia RN - 01/17/2023 2:14 PM EST Discussed with the patient and all questioned fully answered. She will call me if any problems arise. Pt notified ticket writer while discharging that she is missing her medications and her old nurse took them from her old room (409) and placed them on 4c. Looked on 4c, medications not here. Called 4ab, Skyler ended up finding medications. Pt sent home with medications to be transported to [facility] in [place], [place] by mother. * Segundo Soto MD - 01/16/2023 5:32 PM EST Images from the original note were not included. [facility] Office: [phone] Cornel Ortiz DO, Wiley Singh DO, Enmanuel Hsihe DO, Pasha Rosario DO, Ondina Lauren MD, Hafsa Travis MD, Dexter Zamarripa MD, Sugar Alcantara MD, Maxwell Rg MD, Mackenzie Lawrence MD, Demetrio Simons DO, Segundo Soto MD, Renny Gonsales DO, Lorraine Peter MD, Tariq Sifuentes MD, Viral Ortiz DO, Sapna Abarca MD, Graeme Mcfarland MD, Maximilian Miramontes DO, Suyapa Quinones MD, Shyanne Mukherjee MD, Raven Huizar MD, Hillary Red MD, Renny Montiel DO, Angeli Gonzalez MD, Macie Patel MD, Pam Sim CNP, Clover Christopher CNP, Analy Godoy CNP, Musa Lux CNP, Teri Campos, BERNADINE, Shaylee Guillermo, FISH HATCHERY WORKER, Andria Castro, FISH HATCHERY WORKER, Haritha Giron, FISH HATCHERY WORKER, Aga Hoskins, FISH HATCHERY WORKER, Rafia Mccormick, FISH HATCHERY WORKER, Macario Andrade, PA-C, Luana Henriquez, PATIENT MANAGER, Leylaramon Vora CNP, Janice Calfee, CNP [facility] IN-PATIENT SERVICE [facility] Discharge Summary Patient ID: German Jacob : 1990 ACCOUNT: [id number] Patient's PCP: No primary care provider on file. Admit Date: 01/12/2023 Discharge Date: 01/16/2023 Length of Stay: 4 Code Status: Full Code Admitting Physician: Segundo Soto MD Discharge Physician: Segundo Soto MD Active Discharge Diagnoses: Hospital Problem Lists: Principal Problem: Alcohol use with withdrawal (HCC) Active Problems: Polysubstance dependence including opioid type drug, continuous use (HCC) Nausea & vomiting Jaundice High anion gap metabolic acidosis Macrocytosis Acute hypotension Hypoglycemia Alcohol intoxication with delirium (HCC) Seizure (HCC) Resolved Problems: * No resolved hospital problems. * Admission Condition: stable Discharged Condition: stable Hospital Stay: Hospital Course: German Jacob is a 32 y.o. female who was admitted for the management of Alcohol use with withdrawal (HCC) , presented to ER with Seizures (ETOH withdrawal x2 days) 32 year old female with past medical history of seizures with alcohol withdrawal, anxiety and hypertension presented with alcohol us with moderate withdrwawl and abnormal bilirubin. Patient was seen by Gi no acute intervention planned. Patient was placed on phenobrbital for alcohol withdrawal and improved. Plan to discharge patient to alcohol rehab program. Significant therapeutic interventions: N/A Significant Diagnostic Studies: Labs / Micro: CBC: Lab Results Component Value Date/Time WBC 4.4 01/13/2023 06:38 AM RBC 2.94 01/13/2023 06:38 AM HGB 10.4 01/13/2023 06:38 AM HCT 31.1 01/13/2023 06:38 AM MCV 105.8 01/13/2023 06:38 AM MCH 35.4 01/13/2023 06:38 AM MCHC 33.4 01/13/2023 06:38 AM RDW 14.6 01/13/2023 06:38 AM PLT 100 01/13/2023 06:38 AM BMP: Lab Results Component Value Date/Time GLUCOSE 114 01/15/2023 02:30 PM NA 132 01/15/2023 02:30 PM K 4.7 01/15/2023 02:30 PM CL 97 01/15/2023 02:30 PM CO2 25 01/15/2023 02:30 PM ANIONGAP 10 01/15/2023 02:30 PM BUN 7 01/15/2023 02:30 PM CREATININE 0.43 01/15/2023 02:30 PM CALCIUM 8.6 01/15/2023 02:30 PM LABGLOM >60 01/15/2023 02:30 PM Radiology: XR CHEST PORTABLE Result Date: 01/12/2023 No acute cardiopulmonary abnormality. US ABDOMEN LIMITED Specify organ? LIVER, GALLBLADDER, PANCREAS, SPLEEN Result Date: 01/15/2023 Borderline dilated common bile duct up to 7-8 mm. Given the patient's elevated bilirubin, further evaluation should be considered. MRCP can be considered. No cholelithiasis. Liver steatosis. Consultations: Consults: Final Specialist Recommendations/Findings: IP CONSULT TO HOSPITALIST IP CONSULT TO SOCIAL WORK IP CONSULT TO GI IP CONSULT TO IV TEAM The patient was seen and examined on day of discharge and this discharge summary is in conjunction with any daily progress note from day of discharge. Discharge plan: Disposition: rehab Physician Follow Up: Leonardo Zamarripa MD [address] [address] Follow up Requiring Further Evaluation/Follow Up POST HOSPITALIZATION/Incidental Findings: follow up PCP follow up GI follow up drug rehabilitation program Diet: regular diet Activity: As tolerated\ Instructions to Patient: follow up PCP follow up GI follow up drug rehabilitation program Discharge Medications: Medication List START taking these medications folic acid 1 MG tablet Commonly known as: FOLVITE Take 1 tablet by mouth daily nicotine 10 MG inhaler Commonly known as: NICOTROL Inhale 1 puff into the lungs as needed for Smoking cessation thiamine 100 MG tablet Take 1 tablet by mouth daily CONTINUE taking these medications acamprosate 333 MG tablet Commonly known as: CAMPRAL buprenorphine-naloxone 8-2 MG Subl SL tablet Commonly known as: SUBOXONE cloNIDine 0.1 MG tablet Commonly known as: CATAPRES gabapentin 800 MG tablet Commonly known as: NEURONTIN hydrOXYzine HCl 50 MG tablet Commonly known as: ATARAX omeprazole 40 MG delayed release capsule Commonly known as: PRILOSEC propranolol 10 MG tablet Commonly known as: INDERAL vitamin D 08714 UNIT Caps Commonly known as: CHOLECALCIFEROL Where to Get Your Medications These medications were sent to [facility], [place] - [address] [facility] - P [phone] - F [phone] [place], [place] [address] [address] folic acid 1 MG tablet nicotine 10 MG inhaler thiamine 100 MG tablet No discharge procedures on file. Time Spent on discharge is 20 mins in patient examination, evaluation, counseling as well as medication reconciliation, prescriptions for required medications, discharge plan and follow up. Electronically signed by Segundo Soto MD 01/16/2023 5:[address] Claros primary care provider on file. for the opportunity to be involved in this patient's care. [facility] Work Phone: 1(170) 303-532902-28-2023 History of Present illness Narrative* Bernarda Nolasco - 01/17/2023 10:15 AM EST SPIRITUAL CARE DEPARTMENT - [facility] [place] PROGRESS NOTE Shift date: 01/17/2023 Shift day: Monday Shift # 1 Room # 0436/0436-01 Name: German Jacob Orthodox: None Place of taoism: Referral: Routine Visit Admit Date & Time: 01/12/2023 9:31 PM Assessment: German Jacob is a 32 y.o. female in the hospital because of a seizure . Upon entering the roomwriter observes patient crossed-legged in bed in darkened room. Pt appeared uninterested in visit. She said she is supposed to be going to a rehab/detox facility today. Intervention: Population Health Manager introduced self and title as nonprofit manager Population Health Manager offered space for patient to express feelings, needs, and concerns and provided a ministry presence. Outcome: Patient thanked nonprofit manager for visit. Plan: Chaplains will remain available to offer spiritual and emotional support as needed. . Spiritual Care Department [facility] [phone] 01/17/23 1014 Encounter Summary Service Provided For: Patient Referral/Consult From: [facility] System Unknown Last Encounter 01/17/23 Complexity of Encounter Low Begin Time 0950 End Time 0956 Total Time Calculated 6 min Encounter Type Initial Screen/Assessment Assessment/Intervention/Outcome Assessment Coping Intervention Active listening;Explored/Affirmed feelings, thoughts, concerns Outcome Expressed feelings, needs, and concerns * Bridgette Crisostomo - 01/16/2023 3:54 PM EST CLINICAL PHARMACY NOTE: MEDS TO BEDS Total # of Prescriptions Filled: 2 The following medications were delivered to the patient: Vit b1 100 Folic acid 1mg Additional Documentation: * Segundo Soto MD - 01/16/2023 11:39 AM EST Images from the original note were not included. [facility] Office: [phone] Cornel Ortiz DO, Wiley Singh DO, Enmanuel Hsieh DO, Pasha Rosario DO, Ondina Lauren MD, Hafsa Travis MD, Dexter Zamarripa MD, Sugar Alcantara MD, Maxwell Rg MD, Mackenzie Lawrence MD, Demetrio Simons DO, Segundo Soto MD, Renny Gonsales DO, Lorraine Peter MD, Tariq Sifuentes MD, Viral Ortiz DO, Sapna Abarca MD, Graeme Mcfarland MD, Maximilian Miramontes DO, Suyapa Quinones MD, Shyanne Mukherjee MD, Raven Huizar MD, Hillary Red MD, Renny Montiel DO, Angeli Gonzalez MD, Macie Patel MD, Pam Sim CNP, Clover Christopher CNP, Analy Godoy CNP, Musa Lux CNP, Teri Campos DNP, Shaylee Guillermo CNP, Andria Castro CNP, Haritha Giron CNP, Aga Hoskins FISH HATCHERY WORKER, Rfaia Mccormick, FISH HATCHERY WORKER, Macario Andrade, JAYNE, Luana Henriquez, PATIENT MANAGER, Leyla Vora CNP, Merline Lyles CNP [facility] IN-PATIENT SERVICE [facility] Progress Note 01/16/2023 11:41 AM Name: German Jacob Acct: [id number] Room: [address] [place] [address] IP Day: 4 Admit Date: 01/12/2023 9:31 PM PCP: No primary care provider on file. Code Status: Full Code Subjective: C/C: Chief Complaint Patient presents with Seizures ETOH withdrawal x2 days Interval History Status: not changed. Patient seen and examined. Feeling ok, some auditory hallucinations, hasnt had clonidine in about 2days, accidentally removed patch. Brief History: 32 year old female with past medical history of seizures with alcohol withdrawal, anxiety and hypertension presented with alcohol us with moderate withdrwawl and abnormal bilirubin. Patient was seen by Gi no acute intervention planned. Patient was placed on phenobrbital from withdrawal and improved. Plan to discharge patient to alcohol rehab program. Review of Systems: Review of Systems Constitutional: Negative for activity change, appetite change, chills and fever. HENT: Negative for congestion, ear pain, facial swelling and mouth sores. Eyes: Negative for discharge and itching. Respiratory: Negative for apnea and chest tightness. Cardiovascular: Negative for chest pain and leg swelling. Gastrointestinal: Negative for abdominal distention, abdominal pain, constipation and diarrhea. Endocrine: Negative for cold intolerance, polyphagia and polyuria. Genitourinary: Negative for difficulty urinating, dysuria and flank pain. Musculoskeletal: Negative for arthralgias, back pain and joint swelling. Skin: Negative for color change and wound. Neurological: Negative for dizziness, seizures, light-headedness and headaches. Psychiatric/Behavioral: Positive for hallucinations. Negative for agitation, behavioral problems and self-injury. Medications: Allergies: No Known Allergies Current Meds: Scheduled Meds: sodium chloride flush 5-40 mL IntraVENous 2 times per day thiamine 100 mg Oral Daily enoxaparin 40 mg SubCUTAneous Daily folic acid 1 mg Oral Daily hydrOXYzine HCl 50 mg Oral BID pantoprazole 40 mg Oral QAM AC cloNIDine 1 patch TransDERmal Weekly gabapentin 400 mg Oral TID buprenorphine-naloxone 2 tablet SubLINGual Daily Continuous Infusions: sodium chloride PRN Meds: nicotine, sodium chloride flush, sodium chloride, potassium chloride OR potassium alternative oral replacement OR potassium chloride, ondansetron OR ondansetron, polyethylene glycol, acetaminophen OR acetaminophen, [] PHENobarbital FOLLOWED BY PHENobarbital Data: Past Medical History: has a past medical history of Anxiety. Social History: reports that she has been smoking cigarettes. She uses smokeless tobacco. She reports current alcohol use of about 14.0 standard drinks per week. She reports current drug use. Drugs: IV, Opiates , and Marijuana (Fred). Family History: History reviewed. No pertinent family history. Vitals: BP (!) 94/56 Pulse 75 Temp 98.2 F (36.8 C) (Oral) Resp 18 Ht 5' 10 (1.778 m) Wt 157 lb 6.5 oz (71.4 kg) SpO2 97% BMI 22.59 kg/m Temp (24hrs), Av F (36.7 C), Min:97.6 F (36.4 C), Max:98.4 F (36.9 C) Recent Labs 01/13/23 1516 POCGLU 140* I/O (24Hr): No intake or output data in the 24 hours ending 01/16/23 1141 Labs: Hematology:No results for input(s): WBC, RBC, HGB, HCT, MCV, MCH, MCHC, RDW, PLT, MPV, SEDRATE, CRP, INR, DDIMER, [id number], LABABSO in the last 72 hours. Invalid input(s): PT Chemistry: Recent Labs 01/15/23 1430 NA 132* K 4.7 CL 97* CO2 25 GLUCOSE 114* BUN 7 CREATININE 0.43* ANIONGAP 10 LABGLOM >60 CALCIUM 8.6 Recent Labs 01/13/23 1516 01/14/23 0801 01/15/23 1430 PROT -- 6.6 6.7 LABALBU -- 3.5 3.7 AST -- 469* 302* ALT -- 288* 233* ALKPHOS -- 315* 274* BILITOT -- 1.9* 1.3* BILIDIR -- 0.9* -- POCGLU 140* -- -- ABG:No results found for: POCPH, PHART, PH, POCPCO2, RVA5ENK, PCO2, POCPO2, PO2ART, PO2, POCHCO3, MQB3XCS, HCO3, NBEA, PBEA, BEART, BE, THGBART, THB, VTJ8QYE, XDGQ0EXN, M2JBGMCQ, O2SAT, FIO2 Lab Results Component Value Date/Time SPECIAL RT HAND 5ML 01/13/2023 06:45 AM Lab Results Component Value Date/Time CULTURE NO GROWTH 3 DAYS 01/13/2023 06:45 AM Radiology: XR CHEST PORTABLE Result Date: 01/12/2023 No acute cardiopulmonary abnormality. US ABDOMEN LIMITED Specify organ? LIVER, GALLBLADDER, PANCREAS, SPLEEN Result Date: 01/15/2023 Borderline dilated common bile duct up to 7-8 mm. Given the patient's elevated bilirubin, further evaluation should be considered. MRCP can be considered. No cholelithiasis. Liver steatosis. Physical Examination: Physical Exam Constitutional: Appearance: She is obese. She is not ill-appearing. HENT: Head: Normocephalic. Right Ear: External ear normal. Left Ear: External ear normal. Nose: Nose normal. Mouth/Throat: Mouth: Mucous membranes are moist. Eyes: Pupils: Pupils are equal, round, and reactive to light. Cardiovascular: Rate and Rhythm: Normal rate and regular rhythm. Heart sounds: No murmur heard. Pulmonary: Effort: Pulmonary effort is normal. Breath sounds: No wheezing or rales. Abdominal: Palpations: Abdomen is soft. Musculoskeletal: Cervical back: Neck supple. Right lower leg: No edema. Left lower leg: No edema. Skin: General: Skin is warm and dry. Capillary Refill: Capillary refill takes less than 2 seconds. Coloration: Skin is pale. Neurological: General: No focal deficit present. Mental Status: She is alert and oriented to person, place, and time. Psychiatric: Comments: Slightly anxious Assessment: Hospital Problems Last Modified POA * (Principal) Alcohol use with withdrawal (HCC) 01/13/2023 Yes Polysubstance dependence including opioid type drug, continuous use (HCC) 01/13/2023 Yes Nausea & vomiting 01/13/2023 Yes Jaundice 01/13/2023 Yes High anion gap metabolic acidosis 01/13/2023 Yes Macrocytosis 01/13/2023 Yes Acute hypotension 01/13/2023 Yes Hypoglycemia 01/13/2023 Yes Alcohol intoxication with delirium (HCC) 01/13/2023 Yes Seizure (HCC) 01/13/2023 Yes Plan: Alcohol use withdrawal. Completed phenobarbital. Anxiety. Clonidine patch resumed Hallucinations from clonidine patch withdrawal. Dsicussed with social work, medically stable for discharge to rehab program Continue gabapentin Segundo Soto MD 01/16/2023 11:41 AM * Susan Moya RN - 01/16/2023 10:51 AM EST Population Health Manager called report to MARQUES Garcia for transfer of pt * SAMY Olivas NP - 01/15/2023 8:00 AM EST Images from the original note were not included. [facility] Office: [phone] Cornel Ortiz DO, Wiley Singh DO, Enmanuel Hsieh DO, Pasha Rosario DO, Ondina Lauren MD, Hafsa Travis MD, Dexter Zamarripa MD, Sugar Alcantara MD, Maxwell Rg MD, Mackenzie Lawrence MD, Demetrio Simons DO, Segundo Soto MD, Renny Gonsales DO, Lorraine Peter MD, Tariq Sifuentes MD, Viral Ortiz DO, Sapna Abarca MD, Graeme Mcfarland MD, Maximilian Miramontes DO, Suyapa Quinones MD, Shyanne Mukherjee MD, Raven Huizar MD, Hillary Red MD, Renny Montiel DO, Angeli Gonzalez MD, Macie Patel MD, Pam Sim CNP, Clover Christopher CNP, Analy Godoy CNP, Musa Lux, FISH HATCHERY WORKER, Teri Campos, BERNADINE, Shaylee Guillermo, FISH HATCHERY WORKER, Andria Castro, FISH HATCHERY WORKER, Haritha Giron, FISH HATCHERY WORKER, Aga Hoskins, FISH HATCHERY WORKER, Rafia Mccormick, FISH HATCHERY WORKER, Macario Andrade PA-C, Luana Henriquez, PATIENT MANAGER, Leyla Vora, FISH HATCHERY WORKER, Merline Lyles, FISH HATCHERY WORKER [facility] IN-PATIENT SERVICE [facility] Progress Note 01/15/2023 8:00 AM Name: German Jacob Acct: [id number] Room: [address] [place] [address] Day: 3 Admit Date: 01/12/2023 9:31 PM PCP: No primary care provider on file. Code Status: Full Code Subjective: C/C: Chief Complaint Patient presents with Seizures ETOH withdrawal x2 days Interval History Status: improved. More awake than with previous assessment. No complaints. Remains on phenobarbital for withdrawal taper. Extra dose of phenobarbital given overnight for increased anxiety. Plans to stay with her mother after discharge. Brief History: German Jacob is a 32 y.o. female history of polysubstance abuse with chronic opiate dependence,chronic alcohol dependence, tobacco abuse status post recent detox at [facility] earlier this month now returns with seizures r/t alcohol withdrawal. Patient detoxed earlier this month late last month for polysubstance use with IV drug abuse, chronic daily alcohol. Previously at [facility]. Patient describes abrupt onset of withdrawal symptoms with nausea vomiting myalgias, frontal headache, diaphoresis complicated by generalized tonic-clonic seizure witnessed by ED staff. Initially she was acutely postictal with mental status changes, also multiple electrolyte imbalances, acute hypoglycemia, transaminitis with jaundice. Review of Systems: Constitutional: negative for chills, fevers, sweats Respiratory: negative for cough, dyspnea on exertion, shortness of breath, wheezing Cardiovascular: negative for chest pain, chest pressure/discomfort, lower extremity edema, palpitations Gastrointestinal: negative for abdominal pain, constipation, diarrhea, nausea, vomiting Neurological: negative for dizziness, headache Medications: Allergies: No Known Allergies Current Meds: Scheduled Meds: sodium chloride flush 5-40 mL IntraVENous 2 times per day thiamine 100 mg Oral Daily enoxaparin 40 mg SubCUTAneous Daily folic acid 1 mg Oral Daily hydrOXYzine HCl 50 mg Oral BID pantoprazole 40 mg Oral QAM AC cloNIDine 1 patch TransDERmal Weekly gabapentin 400 mg Oral TID buprenorphine-naloxone 2 tablet SubLINGual Daily PHENobarbital 32.5 mg IntraVENous BID Followed by PHENobarbital 15.6 mg IntraVENous BID Continuous Infusions: sodium chloride PRN Meds: nicotine, sodium chloride flush, sodium chloride, potassium chloride OR potassium alternative oral replacement OR potassium chloride, ondansetron OR ondansetron, polyethylene glycol, acetaminophen OR acetaminophen, PHENobarbital FOLLOWED BY PHENobarbital Data: Past Medical History: has a past medical history of Anxiety. Social History: reports that she has been smoking cigarettes. She uses smokeless tobacco. She reports current alcohol use of about 14.0 standard drinks per week. She reports current drug use. Drugs: IV, Opiates , and Marijuana (Fred). Family History: History reviewed. No pertinent family history. Vitals: BP 88/64 Pulse 76 Temp 97.6 F (36.4 C) (Oral) Resp 10 Ht 5' 10 (1.778 m) Wt 156 lb 12 oz(71.1 kg) SpO2 98% BMI 22.49 kg/m Temp (24hrs), Av.6 F (36.4 C), Min:97 F (36.1 C), Max:98.5 F (36.9 C) Recent Labs 01/13/23 0404 01/13/23 0802 01/13/23 1132 01/13/23 1516 POCGLU 169* 116* 196* 140* I/O (24Hr): Intake/Output Summary (Last 24 hours) at 01/15/2023 0800 Last data filed at 01/15/2023 0300 Gross per 24 hour Intake 1680 ml Output -- Net 1680 ml Labs: Hematology: Recent Labs 01/12/23 2151 01/13/23 0638 WBC 4.8 4.4 RBC 4.08 2.94* HGB 14.4 10.4* HCT 43.7 31.1* MCV 107.1* 105.8* MCH 35.3* 35.4* MCHC 33.0 33.4 RDW 14.8* 14.6* PLT 150 100* MPV 9.6 8.9 INR -- 1.1 Chemistry: Recent Labs 01/12/23215001/12/23215801/13/23 0638 NA 138 -- 133* K 3.9 -- 4.2 CL 96* -- 97* CO2 12* -- 15* GLUCOSE 59* -- 123* BUN 8 -- 7 CREATININE 0.44* 0.55 0.45* MG 2.0 -- 1.8 ANIONGAP 30* -- 21* LABGLOM >60 -- >60 CALCIUM 8.7 -- 7.5* CAION -- -- 1.04* PHOS -- -- 1.9* LACTACIDWB -- -- 2.1 Recent Labs 01/12/23215001/12/23215801/13/23 0023 01/13/23 0110 01/13/23 0404 01/13/23 0638 01/13/23 0802 01/13/23 1132 01/13/23 1516 01/14/23 0801 PROT 8.3 -- -- -- -- 6.0* -- -- -- 6.6 LABALBU 4.5 -- -- -- -- 3.1* -- -- -- 3.5 LABA1C -- -- -- -- -- 5.1 -- -- -- -- TSH -- -- -- -- -- 0.38 -- -- -- -- AST 988* -- -- -- -- 655* -- -- -- 469* ALT 495* -- -- -- -- 322* -- -- -- 288* LDH -- -- -- -- -- 345* -- -- -- -- ALKPHOS 451* -- -- -- -- 308* -- -- -- 315* BILITOT 2.6* -- -- -- -- 1.5* -- -- -- 1.9* BILIDIR -- -- -- -- -- -- -- -- -- 0.9* CHOL -- -- -- -- -- 177 -- -- -- -- HDL -- -- -- -- -- 46 -- -- -- -- LDLCHOLESTEROL -- -- -- -- -- 87 -- -- -- -- CHOLHDLRATIO -- -- -- -- -- 3.8 -- -- -- -- TRIG -- -- -- -- -- 222* -- -- -- -- POCGLU -- < > 61* 80 169* -- 116* 196* 140* -- < > = values in this interval not displayed. ABG:No results found for: POCPH, PHART, PH, POCPCO2, JNM0HII, PCO2, POCPO2, PO2ART, PO2, POCHCO3, SVQ3MVT, HCO3, NBEA, PBEA, BEART, BE, THGBART, THB, [id number], [id number], [id number], O2SAT, FIO2 Lab Results Component Value Date/Time SPECIAL RT HAND 5ML 01/13/2023 06:45 AM Lab Results Component Value Date/Time CULTURE NO GROWTH 2 DAYS 01/13/2023 06:45 AM Radiology: XR CHEST PORTABLE Result Date: 01/12/2023 No acute cardiopulmonary abnormality. US ABDOMEN LIMITED Specify organ? LIVER, GALLBLADDER, PANCREAS, SPLEEN Result Date: 01/14/2023 Borderline dilated common bile duct up to 7-8 mm. Given the patient's elevated bilirubin, further evaluation should be considered. MRCP can be considered. No cholelithiasis. Liver steatosis. Physical Examination: General appearance: alert, cooperative and no distress Mental Status: oriented to person, place and time and flat affect with delayed conversation. Lungs: clear to auscultation bilaterally, normal effort Heart: regular rate and rhythm, no murmur Abdomen: soft, nontender, nondistended, normal bowel sounds, no masses, hepatomegaly, splenomegaly Extremities: no edema, redness, tenderness in the calves Skin: no gross lesions, rashes, induration Assessment: Hospital Problems Last Modified POA * (Principal) Alcohol use with withdrawal (HCC) 01/13/2023 Yes Polysubstance dependence including opioid type drug, continuous use (HCC) 01/13/2023 Yes Nausea & vomiting 01/13/2023 Yes Jaundice 01/13/2023 Yes High anion gap metabolic acidosis 01/13/2023 Yes Macrocytosis 01/13/2023 Yes Acute hypotension 01/13/2023 Yes Hypoglycemia 01/13/2023 Yes Alcohol intoxication with delirium (HCC) 01/13/2023 Yes Seizure (HCC) 01/13/2023 Yes Plan: Alcohol abuse with withdrawal: Phenobarbital taper Last dose Tuesday 01/16 at 0900. Continue to evaluate mentation. Thiamine, MVI and folate. Seizure precautions. Elevated LFT's, alcohol abuse, untreated hepatitis C. GI evaluated and signed off. Continue to trend LFT's with recommendations for alcohol and drug cessation. Hypotension: Resolved. Polysubstance dependence with recent treatment Suboxone resumed. Neurontin Hydroxyzine. Nicotine inhaler. DVT prophylaxis: Lovenox Discharge planning per case management and social work for drug/alcohol cessation living. ASMY OLIVAS NP 01/15/2023 8:00 AM * Madison Quarles RN - 01/15/2023 5:41 AM EST Pt sleeping. bp 132/105, r54. C Winforms Developer notified. No new orders. * German Concepcion RN - 01/14/2023 9:09 AM EST DBP greater than 100, Andria Castro TONGUE AND QUARTER STITCHER notified * SAMY Olivas NP - 01/14/2023 7:35 AM EST Images from the original note were not included. [facility] Office: [phone] Cornel Ortiz DO, Wiley Singh DO, Enmanuel Hsieh DO, Pasha Rosario DO, Ondina Lauren MD, Hafsa Travis MD, Dexter Zamarripa MD, Sugar Alcantara MD, Maxwell Rg MD, Mackenzie Lawrence MD, Demetrio Simons DO, Segundo Soto MD, Renny Gonsales DO, Lorraine Peter MD, Tariq Sifuentes MD, Viral Ortiz DO, Sapna Abarca MD, Graeme Mcfarland MD, Maximilian Miramontes, DO, Suyapa Quinones MD, Shyanne Mukherjee MD, Raven Huizar MD, Hillary Red MD, Renny Montiel, DO, Angeli Gonzalez MD, Macie Patel MD, Pam Sim, FISH HATCHERY WORKER, Clover Christopher, FISH HATCHERY WORKER, Analy Godoy, FISH HATCHERY WORKER, Musa Lux, FISH HATCHERY WORKER, Teri Campos, BERNADINE, Shaylee Guillermo, FISH HATCHERY WORKER, Andria Castro, FISH HATCHERY WORKER, Haritha Giron, FISH HATCHERY WORKER, Aga Hoskins, FISH HATCHERY WORKER, Rafia Mccormick, FISH HATCHERY WORKER, SIMRAN Magallanes-C, Luana Henriquez, PATIENT MANAGER, Leyla Vora, FISH HATCHERY WORKER, Merline Lyles, FISH HATCHERY WORKER [facility] IN-PATIENT SERVICE [facility] Progress Note 01/14/2023 7:36 AM Name: German Jacob Acct: [id number] Room: [address] [place] [address] Day: 2 Admit Date: 01/12/2023 9:31 PM PCP: No primary care provider on file. Code Status: Full Code Subjective: C/C: Chief Complaint Patient presents with Seizures ETOH withdrawal x2 days Interval History Status: . Seen at bedside. Lethargic. Requesting increased anxiolytic and nicotine inhaler. No specific complaints but endorses felling bad all over Drifts back to sleep without verbal or tactile stimulation. Pending liver/ RUQ ultrasound. Remains NPO until completion. Discussed with nursing. Brief History: German Jacob is a 32 y.o. female history of polysubstance abuse with chronic opiate dependence,chronic alcohol dependence, tobacco abuse status post recent detox at [facility] earlier this month now returns with seizures r/t alcohol withdrawal. Patient detoxed earlier this month late last month for polysubstance use with IV drug abuse, chronic daily alcohol. Previously at [facility]. Patient describes abrupt onset of withdrawal symptoms with nausea vomiting myalgias, frontal headache, diaphoresis complicated by generalized tonic-clonic seizure witnessed by ED staff. Initially she was acutely postictal with mental status changes, also multiple electrolyte imbalances, acute hypoglycemia, transaminitis with jaundice. Review of Systems: Needs much encouragement to follow conversation. Continues to doze off. States I just want to get the stuff done Constitutional: negative for chills, fevers, sweats Respiratory: negative for cough, dyspnea on exertion, shortness of breath, wheezing Cardiovascular: negative for chest pain, chest pressure/discomfort, lower extremity edema, palpitations Gastrointestinal: negative for abdominal pain, constipation, diarrhea, nausea, vomiting Neurological: negative for dizziness, headache Medications: Allergies: No Known Allergies Current Meds: Scheduled Meds: sodium chloride flush 5-40 mL IntraVENous 2 times per day thiamine 100 mg Oral Daily enoxaparin 40 mg SubCUTAneous Daily folic acid 1 mg Oral Daily hydrOXYzine HCl 50 mg Oral BID pantoprazole 40 mg Oral QAM AC cloNIDine 1 patch TransDERmal Weekly gabapentin 400 mg Oral TID buprenorphine-naloxone 2 tablet SubLINGual Daily PHENobarbital 32.5 mg IntraVENous 4x daily Followed by PHENobarbital 32.5 mg IntraVENous BID Followed by [START ON 01/15/2023] PHENobarbital 15.6 mg IntraVENous BID Continuous Infusions: sodium chloride lactated ringers IV soln 75 mL/hr at 01/13/23 2244 PRN Meds: sodium chloride flush, sodium chloride, potassium chloride OR potassium alternative oral replacement OR potassium chloride, ondansetron OR ondansetron, polyethylene glycol, acetaminophen OR acetaminophen, PHENobarbital FOLLOWED BY [START ON 01/15/2023] PHENobarbital Data: Past Medical History: has a past medical history of Anxiety. Social History: reports that she has been smoking cigarettes. She uses smokeless tobacco. She reports current alcohol use of about 14.0 standard drinks per week. She reports current drug use. Drugs: IV, Opiates , and Marijuana (Fred). Family History: History reviewed. No pertinent family history. Vitals: BP 126/89 Pulse 67 Temp 97 F (36.1 C) (Temporal) Resp 11 Ht 5' 10 (1.778 m) Wt 160 lb 15oz (73 kg) SpO2 94% BMI 23.09 kg/m Temp (24hrs), Av.6 F (36.4 C), Min:97 F (36.1 C), Max:98.7 F (37.1 C) Recent Labs 01/13/23 0404 01/13/23 0802 01/13/23 1132 01/13/23 1516 POCGLU 169* 116* 196* 140* I/O (24Hr): Intake/Output Summary (Last 24 hours) at 01/14/2023 0736 Last data filed at 01/13/2023 2244 Gross per 24 hour Intake 1272.93 ml Output 1250 ml Net 22.93 ml Labs: Hematology: Recent Labs 01/12/23215001/13/2338 WBC 4.8 4.4 RBC 4.08 2.94* HGB 14.4 10.4* HCT 43.7 31.1* MCV 107.1* 105.8* MCH 35.3* 35.4* MCHC 33.0 33.4 RDW 14.8* 14.6* PLT 150 100* MPV 9.6 8.9 INR -- 1.1 Chemistry: Recent Labs 01/12/23215001/12/23215801/13/2338 NA 138 -- 133* K 3.9 -- 4.2 CL 96* -- 97* CO2 12* -- 15* GLUCOSE 59* -- 123* BUN 8 -- 7 CREATININE 0.44* 0.55 0.45* MG 2.0 -- 1.8 ANIONGAP 30* -- 21* LABGLOM >60 -- >60 CALCIUM 8.7 -- 7.5* CAION -- -- 1.04* PHOS -- -- 1.9* LACTACIDWB -- -- 2.1 Recent Labs 01/12/23215001/12/23215801/13/23 0023 01/13/23 0110 01/13/23 0404 01/13/23 0638 01/13/23 0802 01/13/23 1132 01/13/23 1516 PROT 8.3 -- -- -- -- 6.0* -- -- -- LABALBU 4.5 -- -- -- -- 3.1* -- -- -- LABA1C -- -- -- -- -- 5.1 -- -- -- TSH -- -- -- -- -- 0.38 -- -- -- AST 988* -- -- -- -- 655* -- -- -- ALT 495* -- -- -- -- 322* -- -- -- LDH -- -- -- -- -- 345* -- -- -- ALKPHOS 451* -- -- -- -- 308* -- -- -- BILITOT 2.6* -- -- -- -- 1.5* -- -- -- CHOL -- -- -- -- -- 177 -- -- -- HDL -- -- -- -- -- 46 -- -- -- LDLCHOLESTEROL -- -- -- -- -- 87 -- -- -- CHOLHDLRATIO -- -- -- -- -- 3.8 -- -- -- TRIG -- -- -- -- -- 222* -- -- -- POCGLU -- < > 61* 80 169* -- 116* 196* 140* < > = values in this interval not displayed. ABG:No results found for: POCPH, PHART, PH, POCPCO2, [id number], PCO2, POCPO2, PO2ART, PO2, POCHCO3, [id number], HCO3, NBEA, PBEA, BEART, BE, THGBART, THB, [id number], [id number], [id number], O2SAT, FIO2 Lab Results Component Value Date/Time SPECIAL RT HAND 5ML 01/13/2023 06:45 AM Lab Results Component Value Date/Time CULTURE NO GROWTH 1 DAY 01/13/2023 06:45 AM Radiology: XR CHEST PORTABLE Result Date: 01/12/2023 No acute cardiopulmonary abnormality. Physical Examination: General appearance: Lethargic, cooperative and no distress Mental Status: oriented to person, place and time with slowed, flat affect Lungs: Diminished throughout 12/22 non-participation. clear to auscultation bilaterally, normal effort Heart: regular rate and rhythm, no murmur Abdomen: soft, nontender, nondistended, normal bowel sounds, no masses, hepatomegaly, splenomegaly Extremities: no edema, redness, tenderness in the calves. Slow movement. Skin: Sallow, no gross lesions, rashes, induration Assessment: Hospital Problems Last Modified POA * (Principal) Alcohol use with withdrawal (HCC) 01/13/2023 Yes Polysubstance dependence including opioid type drug, continuous use (HCC) 01/13/2023 Yes Nausea & vomiting 01/13/2023 Yes Jaundice 01/13/2023 Yes High anion gap metabolic acidosis 01/13/2023 Yes Macrocytosis 01/13/2023 Yes Acute hypotension 01/13/2023 Yes Hypoglycemia 01/13/2023 Yes Alcohol intoxication with delirium (HCC) 01/13/2023 Yes Seizure (HCC) 01/13/2023 Yes Plan: Alcohol abuse with withdrawal: Phenobarbital taper Last dose Tuesday 01/16 at 0900. Continue to evaluate mentation. Thiamine, MVI and folate. Seizure precautions. Elevated LFT's, alcohol abuse, untreated hepatitis C. GI evaluated and signed off. Continue to trend LFT's with recommendations for alcohol and drug cessation. Hypotension: Resolved. Polysubstance dependence with recent treatment Suboxone resumed. Neurontin Hydroxyzine. Nicotine inhaler. DVT prophylaxis: Lovenox SAMY OLIVAS NP 01/14/2023 7:36 AM * Marcelina Blount RN - 01/13/2023 6:53 PM EST Patients bag that has been placed in her room locker had her at home medications in a zip lock bag.Bag has been placed in locker in room. * Stacey Clifton RN - 01/13/2023 6:28 AM EST Provider notified that pt BP was 74/32 while sleeping, pt BP came back up to 98/63 while awake. Neworders were put in. * Stacey Clifton RN - 01/13/2023 4:30 AM EST Provider aware of BP of 88/53. Provider at bedside. No new orders at this time. * Stacey Clifton RN - 01/13/2023 12:28 AM EST Pt arrived to floor BP was 86/52 and RR were 9. Pt was also hard to arouse. Message provider. New orders were added. Checked pt BS (61) gave orange juice. Will recheck in 15 minutes. documented in this encounterBON Phase Vision Phone: [phone] NoteBorderline dilated common bile duct up to 7-8 mm. Given the patient's elevated bilirubin, further evaluation should be considered. MRCP can be considered. No cholelithiasis. Liver steatosis. [facility] R[facility] [id number] NoteI, Harinder Heaton -(scribe), documented on behalf of Dr. Ellsworth. German Jacob is 31y.o. female presenting to the ED with chief complaint of withdrawl/suicidal. Pt says that she is here because she is seeking detox form alcohol and opiods. Pt says that she currently has not plan of suicide or thoughts of suicide. Dr. Ellsworth. performed a history and physical examination of the Pt and discussed his management with the resident Dr. Heard. Exam findings as follows: AO x3, neck supple, heart regular rate and rhythm, non-toxic appearing. Dr. Ellsworth reviewed the resident's note and agrees with the documented findings and plan of care.[facility]11-09-2022 NoteProcedure ECG 12 lead Performed by: Kori Ellsworth DO Authorized by: Kori Ellsworth DO ECG reviewed by ED Physician in the absence of a senior insight manager: yes Interpretation: Interpretation: normal Rate: ECG rate: 58 ECG rate assessment: bradycardic Rhythm: Rhythm: sinus bradycardia Ectopy: Ectopy: none QRS: QRS axis: Normal QRS intervals: Normal QRS conduction: normal ST segments: ST segments: Normal T waves: T waves: normal Comments: Qtc: 447 Kori Ellsworth DO 09/28/22 2219[facility]11-09-2022 NoteReceived phone call from detox who reported patient called to complete the intake assessment, but reported she voiced she was beyond suicidal . Reviewed records prior to assessment. Patient was admitted to [facility] from 09/23/2022 - 09/28/2022 for alcohol abuse and opiate overdose. It appears she may have discharged around 12:30pm with discharge recommendations to [facility] for detox assessment. Of note, it appears Dr. Anand, a psychiatrist, was involved in patient's care. Approached patient with resident, nurse. Patient appears under the influence of substance as evidenced by nodding off, but responsive to verbal stimuli. She denied the direct question that she abused any opiates prior to arrival, but later reported that she may have taken one or two more than prescribed . She denies that this was a suicide attempt. Per records, patient consumes a gallon of liquor a day (patient reported she takes shots throughout the day ) and opiates. Patient reported that she has had suicidal ideation for years and has plan to walk in front of traffic. She receives suboxone from [facility] , prescribed via telemedicine from a practitioner in [place], [place]. She denies any affiliation with a community mental health center. She denies history of any psychiatric admissions. Psychiatric history, per patient - anxiety and depression. She confirmed that she visited [facility] who directed her to [facility] as they were incapable of helping her withdrawal. Rule out if due to patient requiring a hospital level of care for detox due to alleged amount of alcohol consumption. Advised of detox's call to ticket writer. Informed that patient would need transfer to an alternative hospital if under a psychiatric emergency as [facility] detox does not accept individuals who are suicidal. Patient responded that she is not suicidal and wouldn't hurt myself . Reviewed with resident and RN - recommended medical clearance and psychiatry evaluation. Detox reported that they require psychiatry clearance before admission consideration.[facility]11-02-2022 Hospital Discharge instructions* Discharge Instructions* Sylvie Geronimo, - 09/21/2022 8:14 PM EDT You were seen in the emergency department today for heroin overdose and alcohol use. We initially tried to get you into rehab, but you want to go home. Please follow-up with your physicians. Return for any new or worsening symptoms Thank you for visiting [facility] Emergency Department. You need to call No primary care provider on file. to make an appointment as directed for follow up. Should you have any questions regarding your care or further treatment, please call [facility] Emergency Department at [phone]. Take any medications as prescribed, if given any, otherwise for pain Use ibuprofen or Tylenol (unless prescribed medications that have Tylenol in it). You can take over the counter Ibuprofen (advil) tablets (4 tablets every 8 hours or 3 tablets every 6 hours or 2 tablets every 4 hours) If given narcotics during this ED visit, please do not drive or operate heavy machinery for at least 4-6 hours. PLEASE RETURN TO THE ED IMMEDIATELY for worsening symptoms, or if you develop any concerning symptoms such as: high fever not relieved by tylenol and/or motrin, chills, shortness of breath, chest pain, persistent nausea and/or vomiting, numbness, weakness or tingling in the arms or legs or change in color of the extremities, changes in mental status, persistent headache, blurry vision, inability to urinate, unable to follow up with your physician, or other any other Care or concern. Call today or tomorrow for a follow up with [facility] for alcohol detoxification or follow up with No primary care provider on file.. Stop drinking alcohol. Call [facility] [phone] or go to [facility] at 7am Monday - Monday to be evaluated (this is first come first serve) Return to the Emergency Department for worsening of pain, fever > 101.5, excessive nausea or vomiting, vomiting any blood, blood in your stool, or any other care or concern. documented in this encounterB[facility] Phone: evaluation note* Diagnosis Heroin overdose, undetermined intent, initial encounter (HCC)- Primary Alcohol use documented in this encounter [facility] Phone: evaluation note* Diagnosis Alcohol use with withdrawal (HCC)- Primary Seizure (HCC) Other convulsions Alcohol withdrawal syndrome without complication (HCC) Polysubstance dependence including opioid type drug, continuous use (HCC) Combinations of opioid type drug with any other drug dependence, continuous Nausea & vomiting Nausea with vomiting Jaundice Jaundice, unspecified, not of High anion gap metabolic acidosis Acidosis Macrocytosis Other specified diseases of blood and blood-forming organs Acute hypotension Hypoglycemia Hypoglycemia, unspecified Alcohol intoxication with delirium (HCC) Seizure (HCC) Other convulsions documented in this encounter [facility] Work Phone: evaluation note* Diagnosis Onset Date Resolution Status Acute hypoxemic respiratory failure acute Altered mental status acute Delirium due to general medical condition acute Pneumonia acute Sepsis acute [facility] Work Phone: Evaluation note* Diagnosis Onset Date Resolution Status Acute hypoxemic respiratory failure acute MOIRA (acute kidney injury) ac [facility] Altered mental status acute Anemia acute Aspiration pneumonia acute Delirium due to general medical condition acute Hypernatremia acute Hypomagnesemia acute Hypophosphatemia acute Impaired mobility and activities of daily living acute Pneumonia acute Sepsis acute Sepsis with hypotension acut e Thrombocytopenia acute UTI (urinary tract infection) acute [facility] Work Phone: History general Narrative - Reported* Type Description Date Medical History Sciatica Medical History Anxiety Medical History Depression Medical History GERD (gastroesophageal reflux di sease) Medical History Tachycardia Surgical History tonsillectomy Fab Other Summary Purpose Family History No Family History Records Found Relationship Condition Age at Onset Recorded Date/T gisselle grandparent Unknown Malignant neoplasm Unknown Heart disease Unknown Advance Directives No Advanced Directives Records FoundLatest Code Status on File Code Status Date Activated Date Inactivated Comments Full Code 01/13/2023 12:13 AM Latest Code Status on File Code Status Date Activated Date Inactivated Comments Full Code 01/13/2023 12:13 AM 01/17/2023 4:25 PM Advance Directive Response Recorded Date/ Time Advance Directives No July 1:19pm Chief Complaint and Reason for Visit Chief Complaint unresponsive Reason for Visit Acute hypoxemic resp iratory failure Altered mental status Delirium due to general medical condition Pneumonia Sepsis Chief Complaint unresponsive unresponsive unresponsive unresponsive unresponsive unresponsive Reason for Visit Acute hypoxemic resp iratory failure MOIRA (acute kidney injury) Altered mental status Anemia Aspiration pneumonia Delirium due to general medical condition Hypernatremia Hypomagnesemia Hypophosphatemia Impaired mobility and activities of daily living Pneumonia Sepsis Sepsis with hypotension Thrombocytopenia UTI (urinary tract infection) Additional Source Comments INFORMATION SOURCE (unrecogn ized section and content) DATE CREATED AUTHOR 04/20/2020 [facility] DATE CREATED AUTHOR AUTHOR'S ORGANIZ ATION 08/18/2020 [facility] DATE CREATED AUTHOR AUTHOR'S ORGANIZ ATION 04/14/2021 [facility] DATE CREATED AUTHOR AUTHOR'S ORGANIZ ATION 01/19/2023 [facility] DATE CREATED AUTHOR AUTHOR'S ORGANIZ ATION 01/25/2023 [facility] DATE CREATED AUTHOR AUTHOR'S ORGANIZ ATION 01/29/2023 [facility] DATE CREATED AUTHOR AUTHOR'S ORGANIZ ATION 08/05/2023 [facility] DATE CREATED AUTHOR AUTHOR'S ORGANIZ ATION 11/14/2024 [facility] Reason for Visit (unrecogniz ed section and content) Reason Comments Drug Overdose Heroin, 8mg narcan I N Reason Comments Seizures ETOH withdrawal x2 d ays Specialty Diagnoses / Procedures Referred By Contac t Referred To Contact Diagnoses Seizure (HCC) Alcohol withdrawal syndrome without complication (HCC) Alcohol use with withdrawal (HCC) [address] [place] [address] [facility] [address] [place] [address] Referral ID Status Reason Start Date Expiration Date Visits Re quested Visits Authorized [id number] 1 1 Scheduled Active and Recently Administ ered Medications (unrecognized section and content) Medication Order 09/19/2022 09/20/2022 09/21/2022 lactated ringers bolus (COMPLETED) 1,000 mL, IntraVENous, at 495.9 mL/hr, Administer over 121 Minutes, ONCE, On Mon09/21/22 at 1430, For 1 dose 1446 (New Bag - Prov ider: Mert Foster RN)1622 (Stopped - Provider: Aubrie Colvin RN) LORazepam (ATIVAN) tablet 1 mg (COMPLETED) 1 mg, Oral, ONCE, 1 dose, On Mon09/21/22 at 1745 1742 (Given - Provid er: Aubrie Colvin RN) midazolam PF (VERSED) injection 2 mg (COMPLETED) 2 mg, IntraVENous, ONCE, 1 dose, On Mon09/21/22 at 1945 1951 (Given - Provid er: Karina Bishop RN) ondansetron (ZOFRAN) injection 4 mg (COMPLETED) 4 mg, IntraVENous, ONCE, 1 dose, On Mon09/21/22 at 1430 1445 (Given - Provid er: Mert Foster RN) ondansetron (ZOFRAN) injection 4 mg (COMPLETED) 4 mg, IntraVENous, ONCE, 1 dose, On Mon09/21/22 at 1945 1951 (Given - Provid er: Karina Bishop RN) Scheduled Medication Order 01/15/2023 01/16/2023 01/17/2023 buprenorphine-naloxone (SUBOXONE) 8-2 MG SL tablet 2 tablet 2 tablet, SubLINGual, DAILY, First dose on Mon01/13/23 at 1500, Until Discontinued 09 (Given - Provider: German Concepcion RN) 08 (Given - Provider: Susan Moya RN) 804 (Given - Provider: Radha Tapia RN) cloNIDine (CATAPRES) 0.1 MG/24HR 1 patch 1 patch, TransDERmal, Administer over 7 Days, WEEKLY, First dose (after last modification) on Mon01/16/23 at 2200, Apply to a clean, hairless area of the upper outer arm or chest. Rotate patch site weekly. Apply protective overwrap/barrier/occlus demetra dressing supplied with the clonidine patch OVER the clonidine patch AFTER the patch has been applied. 2204 (Patch Applied - Provider: Ale Garcia, MARQUES)2207 (Patch Removed - Provider: Ale Garcia RN - Comment: Time moved from discontinued order due to modification) enoxaparin (LOVENOX) injection 40 mg 40 mg, SubCUTAneous, DAILY, First dose on Mon01/13/23 at 0900, Until Discontinued, Indication of Use: Prophylaxis-DVT/PE, Administer by deep subCUTAneous injection with pt lying down. Alternate injection sites on abdominal wall. Do not rub site after injection. Check with prior to any invasive procedure. 09 (Given - Provider: German Concepcion RN) 08 (Given - Provider: Susan Moya RN) 08 (Not Given - Provider: Radha Tapia RN - Reason: Patient/family refused) folic acid (FOLVITE) tablet 1 mg 1 mg, Oral, DAILY, First dose on Mon01/13/23 at 0900, Until Discontinued 904 (Given - Provider: German Concepcion RN) 08 (Given - Provider: Susan Moya RN) 08 (Given - Provider: Radha Tapia RN) gabapentin (NEURONTIN) capsule 400 mg 400 mg, Oral, 3 TIMES DAILY, First dose on Mon01/13/23 at 1500, Until Discontinued 904 (Given - Provider: German Concepcion RN)140 (Given - Provider: German Concepcion RN)2019 (Given - Provider: Jane Ibrahim RN) 08 (Given - Provider: Susan Moya RN)140 (Given - Provider: Radha Tapia RN)2099 (Given - Provider: Ale Garcia RN) 08 (Given - Provider: Radha Tapia RN)1400 (Due)2100 (Due) hydrOXYzine HCl (ATARAX) tablet 50 mg 50 mg, Oral, 2 TIMES DAILY, First dose on Mon01/13/23 at 2100, Until Discontinued 904 (Given - Provider: German Concepcion RN)2019 (Given - Provider: Jane Ibrahim RN) 08 (Given - Provider: Susan Moya RN)2001 (Given - Provider: Ale Garcia RN) 08 (Given - Provider: Radha Tapia RN)2100 (Due) pantoprazole (PROTONIX) tablet 40 mg 40 mg, Oral, DAILY BEFORE BREAKFAST, First dose on Mon01/14/23 at 0700, Until Discontinued, Do not crush or break. Substituted for Omeprazole (PRILOSEC). 0633 (Given - Provider: Madison Quarles RN) 08 (Given - Provider: Susan Moya RN) 0620 (Given - Provider: Ale Garcia RN) PHENobarbital (LUMINAL) injection 15.6 mg (COMPLETED) 15.6 mg (rounded from 16.2 mg), IntraVENous, 2 TIMES DAILY, 2 doses, First dose on Mon01/15/23 at 2100, Last dose on Mon01/16/23 at 0900 2020 (Given - Provider: Jane Ibrahim, RN) 801 (Given - Provider: Susan Moya, MARQUES) prochlorperazine (COMPAZINE) injection 10 mg (COMPLETED) 10 mg, IntraVENous, ONCE, 1 dose, On Mon01/16/23 at 0345 0330 (Given - Provider: Jane Ibrahim, RN) sodium chloride flush 0.9 % injection 5-40 mL 5-40 mL, IntraVENous, EVERY 12 HOURS SCHEDULED (2 times per day), First dose on Mon01/13/23 at 0900, Until Discontinued, For Line Patency: Peripheral IV = 5 mL; Midline or Central Line = 10 mL/lumen. If following IV push medication, administer flush at same rate as the IV push. Flush volume is determined by type of infusion therapy being given. For non-viscous solutions use: Peripheral IV = 5 mL Midline or Central Line = 10 mL/lumen For viscous solutions (i.e. blood components, parenteral nutrition, contrast media, or after obtaining blood sample) use: Peripheral IV = 10 mL Midline or Central Line = 20 mL/lumen 905 (Given - Provider: German Concepcion RN)2025 (Given - Provider: Jane Ibrahim, MARQUES) 802 (Given - Provider: Susan Moya, MARQUES)2001 (Given - Provider: Ale Garcia RN) 804 (Given - Provider: Radha Tapia, MARQUES)2099 (Due) thiamine tablet 100 mg 100 mg, Oral, DAILY, First dose on Mon01/13/23 at 0900, Until Discontinued 904 (Given - Provider: German Concepcion RN) 800 (Given - Provider: Susan Moya RN) 804 (Given - Provider: Radha Tapia, MARQUES) PRN Medication Order 01/15/2023 01/16/2023 01/17/2023 0.9 % sodium chloride infusion IntraVENous, at 5-250 mL/hr, PRN, if patient receiving piggyback infusions and maintenance fluids are not ordered OR KVO fluids to protect IV site / prevent frequent line interruptions/ long duration, Starting on Mon01/13/23 at 0013, For piggyback infusion, administer at same rate as piggyback for a total of 25 mL. Enter 25 mL into dose field and piggyback rate into rate field of order. If piggyback is infusing at a rate less than 100 mL/hr, enter 25 mL into dose field and 100 mL/hr into rate field of order. For KVO fluids, enter rate of 20 mL/hr or less into rate field of order. acetaminophen (TYLENOL) suppository 650 mg(Linked Group 1) 650 mg, Rectal, EVERY 6 HOURS PRN, Starting on Mon01/13/23 at 0013, Until Discontinued, Pain Mild (1-3), Fever, For temp greater than 100.4 F (38 C), Administer if oral route cannot be used. acetaminophen (TYLENOL) tablet 650 mg(Linked Group 1) 650 mg, Oral, EVERY 6 HOURS PRN, Starting on Mon01/13/23 at 0013, Until Discontinued, Pain Mild (1-3), Fever, For temp greater than 100.4 F (38 C), Maximum dose of acetaminophen is 4000 mg from all sources in 24 hours. nicotine (NICOTROL) inhaler 1 puff (Patient Supplied) 1 puff, Inhalation, PRN, Starting on Mon01/14/23 at 1230, Until Discontinued, Smoking cessation, Please select a reason the therapeutic interchange was not accepted: Other (Please Comment) / patient supply, Patient Supplied ondansetron (ZOFRAN) injection 4 mg(Linked Group 2) 4 mg, IntraVENous, EVERY 6 HOURS PRN, Starting on Mon01/13/23 at 0013, Until Discontinued, Nausea, Vomiting, Administer if oral route cannot be used. 2231 (Given - Provider: Jane Ibrahim RN) 1018 (Given - Provider: Radha Tapia RN) ondansetron (ZOFRAN-ODT) disintegrating tablet 4 mg(Linked Group 2) 4 mg, Oral, EVERY 8 HOURS PRN, Starting on Mon01/13/23 at 0013, Until Discontinued, Nausea, Vomiting 2231 (See Alternative - Provider: Jane Ibrahim RN) 1018 (See Alternative - Provider: Radha Tapia RN) PHENobarbital (LUMINAL) injection 16.2 mg 16.2 mg, IntraVENous, EVERY 6 HOURS PRN, Starting on Mon01/15/23 at 1549, Until Mon01/17/23 at 1548, CIWA score 8 or greater 0002 (Given - Provider: Jane Ibrahim, RN)2236 (Given - Provider: Ale Garcia, MARQUES) 1105 (Given - Provider: Radha Tapia RN - Comment: ciwa 18) PHENobarbital (LUMINAL) injection 32.5 mg () 32.5 mg, IntraVENous, EVERY 6 HOURS PRN, Starting on Mon01/13/23 at 1549, Until Mon01/15/23 at 1548, CIWA score 8 or greater 0320 (Given - Provider: Madison Quarles RN)1414 (Given - Provider: German Concepcion RN) polyethylene glycol (GLYCOLAX) packet 17 g 17 g, Oral, DAILY PRN, Starting on Mon01/13/23 at 0013, Until Discontinued, Constipation, First line therapy for constipation potassium bicarb-citric acid (EFFER-K) effervescent tablet 40 mEq(Linked Group 3) 40 mEq, Oral, PRN, Starting on Mon01/13/23 at 0013, Until Discontinued, Per Potassium Replacement Protocol, Administer as alternative if patient unable to tolerate oral tablet. K Lab Replacement Action 3.1 to 3.5 40 mEq ORAL x 1 Under 3.1 Refer to IV replacement protocol Recheck K level in AM. Protocol not for use in patients with CrCl less than 30 mL/min. Do not chew or crush. Dissolve flavored tablets completely in 3 to 4 ounces of cold water; unflavored tablets may be dissolved in 3 to 4 ounces of cold juice. Patient to sip slowly over a 5 to 10 minute period. May further dilute if GI adverse effects occur. potassium chloride (KLOR-CON M) extended release tablet 40 mEq(Linked Group 3) 40 mEq, Oral, PRN, Starting on Mon01/13/23 at 0013, Until Discontinued, Potassium Replacement, May give oral solution if patient unable to tolerate tablet. K Lab Replacement Action 3.1-3.5 40 mEq ORAL x 1 2.7-3.0 Refer to IV replacement orders < 2.7 Refer to IV replacement orders Recheck K level in AM. Not for use in patients with CrCl less than 30 mL/min. potassium chloride 10 mEq/100 mL IVPB (Peripheral Line)(Linked Group 3) 10 mEq, IntraVENous, PRN, Starting on Mon01/13/23 at 0013, Until Discontinued, at 100 mL/hr, Potassium Replacement, K Lab Replacement Action 2.7-3.0 10 mEq IVPB x 6 doses (60 mEq Total) < 2.7 CALL PHYSICIAN and 10 mEq IVPB x 6 doses (60 mEq Total) Infuse at 10 mEq/hr Repeat Potassium lab 1 hour after final administration. Not for use in patients with CrCl less than 30 mL/min. sodium chloride flush 0.9 % injection 10 mL 10 mL, IntraVENous, PRN, Starting on Mon01/13/23 at 0013, Until Discontinued, Line Care, After every IV line use Linked Groups Order Group 1: acetaminophen (TYLENOL) tablet 650 mgJump to med 650 mg, Oral, EVERY 6 HOURS PRN, Starting on Mon01/13/23 at 0013, Until Discontinued, Pain Mild (1-3), Fever, For temp greater than 100.4 F (38 C)
Maximum dose of acetaminophen is 4000 mg from all sources in 24 hours.
Or acetaminophen (TYLENOL) suppository 650 mgJump to med 650 mg, Rectal, EVERY 6 HOURS PRN, Starting on Mon01/13/23 at 0013, Until Discontinued, Pain Mild (1-3), Fever, For temp greater than 100.4 F (38 C)
Administer if oral route cannot be used.
Group 2: ondansetron (ZOFRAN-ODT) disintegrating tablet 4 mgJump to med 4 mg, Oral, EVERY 8 HOURS PRN, Starting on Mon01/13/23 at 0013, Until Discontinued, Nausea, Vomiting Or ondansetron (ZOFRAN) injection 4 mgJump to med 4 mg, IntraVENous, EVERY 6 HOURS PRN, Starting on Mon01/13/23 at 0013, Until Discontinued, Nausea, Vomiting
Administer if oral route cannot be used.
Group 3: potassium chloride (KLOR-CON M) extended release tablet 40 mEqJump to med 40 mEq, Oral, PRN, Starting on Mon01/13/23 at 0013, Until Discontinued, Potassium Replacement
May give oral solution if patient unable to tolerate tablet. K Lab Replacement Action 3.1-3.5 40 mEq ORAL x 1 & nbsp; 2.7-3.0 Refer to IV replacement orders < 2.7 Refer to IV replacement orders Recheck K level in AM. Not for use in patients with CrCl less than 30 mL/min.
Or potassium bicarb-citric acid (EFFER-K) effervescent tablet 40 mEqJump to med 40 mEq, Oral, PRN, Starting on Mon01/13/23 at 0013, Until Discontinued, Per Potassium Replacement Protocol
Administer as alternative if patient unable to tolerate oral tablet. K Lab Repla cemen t Action 3.1 to 3.5 40 mEq ORAL x 1 Under 3.1 Refer to IV replacement protocol Recheck K level in AM. Protocol not for use in patients with CrCl less than 30 mL/min. Do not chew or crush. Dissolve flavored tablets completely in 3 to 4 ounces of cold water; unflavored tablets may be dissolved in 3 to 4 ounces of cold juice. Patient to sip slowly over a 5 to 10 minute period. May further dilute if GI adverse effects occur.
Or potassium chloride 10 mEq/100 mL IVPB (Peripheral Line)Jump to med 10 mEq, IntraVENous, PRN, Starting on Mon01/13/23 at 0013, Until Discontinued, at 100 mL/hr, Potassium Replacement
K Lab Replacement Action 2.7-3.0 10 mEq IVPB x 6 doses (60 mEq Total) < 2.7 CALL PHYSICIAN and 10 mEq IVPB x 6 doses (60 mEq Total) Infuse at 10 mEq/hr Repeat Potassium lab 1 hour after final administration. Not for use in patients with CrCl less than 30 mL/min.
Ordered Prescriptions (unrec ognized section and content) Prescription Sig Dispensed Refills Start Date End Da te nicotine (NICOTROL) 10 MG inhaler Inhale 1 puff into the lungs as needed for Smoking cessation 1 each 3 01/16/2023 02/15/2023 thiamine 100 MG tablet Take 1 tablet by mouth daily 30 tablet 3 01/14/2023 folic acid (FOLVITE) 1 MG tablet Take 1 tablet by mouth daily 30 tablet 3 01/14/2023 Care Teams (unrecognized sec tion and content) Team Status: Active Member Role Status Dates PHYSICIAN NO FAMILY Primary Care Provider Active Team Status: Inactive Member Role Status Dates PHYSICIAN NO FAMILY Primary Care Provider Active Start: August 12, 2024 End: August 21, 2024 Chase Dunn DO Emergency Provider Active Start: August 12, 2024 End: August 21, 2024 Mike Verduzco MD Admit Provider Active Start: August 12, 2024 End: August 21, 2024 Rolo Perez MD Other Provider Active Start: Se ptember 2023 End: August 21, 2024 Chidi Rick MD Attending Provider Active St art: August 12, 2024 End: August 21, 2024 Leyla Emerson MD Other Provider Active Start: Se ptember 2023 End: August 21, 2024 Vadim Banda MD Other Provider Active Start: Derrek tran 2023 End: August 21, 2024 Gerri Fabian APRN Other Provider Active St art: August 12, 2024 End: August 21, 2024 Steven June Jr, DO Other Provider Active S tart: August 12, 2024 End: August 21, 2024 Macho Adan MD Other Provider Active Start: August 12, 2024 End: August 21, 2024 Renny Multani MD Other Provider Active Start: August 12, 2024 End: August 21, 2024 Team Status: Active Member Role Status Dates PHYSICIAN NO FAMILY Primary Care Provider Active Start: August 12, 2024 Chase Dunn DO Emergency Provider Active Start: August 12, 2024 Mike Verduzco MD Admit Provide r, Other Provider Active Start: August 12, 2024 Renny Multani MD Attending Provider Active Start: August 12, 2024 Team Status: Active Member Role Status Dates PHYSICIAN NO FAMILY Primary Care Provider Active Start: August 13, 2024 Chase Dunn DO Emergency Provider Active Start: August 13, 2024 Mike Verduzco MD Admit Provide r, Other Provider Active Start: August 13, 2024 Renny Multani MD Other Provider Active Start: August 13, 2024 Rolo Perez MD Attending Provider, Other Provider Active Start: August 13, 2024 Team Status: Active Member Role Status Dates PHYSICIAN NO FAMILY Primary Care Provider Active Start: August 19, 2024 Chase Dunn DO Emergency Provider Active Start: August 19, 2024 Mike Verduzco MD Admit Provider Active Start: August 19, 2024 Renny Multani MD Other Provider Active Start: August 19, 2024 Rolo Perez MD Other Provider Active Start: Se pt2023 Leyla Emerson MD Other Provider Active Start: Se pt2023 Vadim Banda MD Other Provider Active Start: S santytemblizzeth 2023 Gerri Fabian APRN Other Provider Active St art: August 19, 2024 Steven June Jr, DO Other Provider Active S tart: August 19, 2024 Macho Adan MD Attending Pr ovider, Other Provider Active Start: August 19, 2024 Chidi Rick MD Other Provider Active Start: August 19, 2024 Team Status: Active Member Role Status Dates PHYSICIAN NO FAMILY Primary Care Provider Active Start: August 19, 2024 Chase Dunn DO Emergency Provider Active Start: August 19, 2024 Mike Verduzco MD Admit Provider Active Start: August 19, 2024 Renny Multani MD Other Provider Active Start: August 19, 2024 Rolo Perez MD Other Provider Active Start: pt2023 Leyla Emerson MD Other Provider Active Start: Se pt2023 Vadim Banda MD Other Provider Active Start: S eptember 2023 Gerri Rui , ABE TEACHER Other Provider Active St art: August 19, 2024 Steven June Jr, DO Other Provider Active S tart: August 19, 2024 Macho Adan MD Other Provider Active Start: August 19, 2024 Chidi Rick MD Other Provider Active Start: August 19, 2024 Dora Hong MD Attending Provider Active Start: August 19, 2024 Team Status: Active Member Role Status Dates PHYSICIAN NO FAMILY Primary Care Provider Active Start: August 20, 2024 Chase Dunn DO Emergency Provider Active Start: August 20, 2024 Mike Verduzco MD Admit Provider Active Start: August 20, 2024 Rolo Perze MD Other Provider Active Start: Oc tober 2023 Chidi Rick MD Other Provider Active Start: August 20, 2024 Leyla Emerson MD Other Provider Active Start: Oc tober 2023 Vadim Banda MD Other Provider Active Start: O ctober 2023 Gerri Rui , ABE TEACHER Other Provider Active St art: August 20, 2024 Steven June Jr, DO Other Provider Active S tart: August 20, 2024 Macho Adan MD Other Provider Active Start: August 20, 2024 Renny Multani MD Other Provider Active Start: August 20, 2024 Collette Zaragoza MD Attending Provider Active Star t: August 20, 2024 Team Status: Active Member Role Status Dates PHYSICIAN NO FAMILY Primary Care Provider Active Start: August 12, 2024 Chase Dunn DO Emergency Provider Active Start: August 12, 2024 Mike Verduzco MD Admit Provide r, Attending Provider Active Start: August 12, 2024 Goals (unrecognized section and content) Goals may be documented in a n alternate section FOR RECORDS PERTAINING TO PATIENTS WHO ARE OR HAVE BEEN ENROLLED IN A CHEMICAL DEPENDENCY/SUBSTANCEABUSE PROGRAM, SOME INFORMATION MAY BE OMITTED. This clinical summary was aggregated from multiple sources. Caution should be exercised in using it in the provision of clinical care. This summary normalizes information from multiple sources, and as a consequence, information in this document may materially change the coding, format and clinical context of patient data. In addition, data may be omitted in some cases. CLINICAL DECISIONS SHOULD BE BASED ON THE PRIMARY CLINICAL RECORDS. [facility]. provides no warranty or guarantee of the accuracy or completeness of information in this document.
[2024-12-31 14:08] LABS: AFP, Serum, Tumor Marker 14.7 ng/mL (0.0-6.4)
[2025-01-02 13:10] LABS: HCV Ab Reactive (Non Reactive); HCV RNA (International Units) 20800000 IU/mL (.)
== END 2024-12-30 07:28 | disposition home or self-care (01) ==
LOC: LAB 07:29
PROVIDERS: PCP Family Medicine; Visit Provider Family Medicine
DX: B18.2 Chronic viral hepatitis C (principal); F10.180 Alcohol abuse with alcohol-induced anxiety disorder
CPT/HCPCS: 36415; 82105; 86803

== ENCOUNTER 2025-06-18 11:22 | Emergency (ER) | payer OTHER, SELFPAY ==
--- OUTSIDE RECORDS SUMMARY | 2024-09-23 09:00 | XMS_ITS ---
Author Organization [facility] vices Address [address] [place], [place] [address] Care Team Providers Care Offbearer Sewer Pipe Name Role Phone Yudy Slamon Primary Care Provider [phone] Beverly Tamez [phone] REASON FOR VISIT Wellness Social History Sex Assigned At : Social History Observation Description Sex Assigned At Female Encounters Encounter Location Date Provider Diagnosis [address] [id number] 09/23 Beverly Tamez Plan Of Treatment No Information Progress Notes * Merna JACOBDOB: 1 (34 yo F)Acc No.[id number]:09/23/2024 Medical Note Patient: Merna BERNARD Provider: Pascual Tamez :1990 A ge:33 Y S ex:Female Date:09/23/2024 Address:[address] [place], [place] Pcp:Yudy Salmon Subjective: * Chief Complaints: * 1 . Wellness. * Medical History: Objective: * Vitals: Assessment: Plan: * Treatment: * Billing Information: * Visit Code: * Procedure Codes: * Electronic signature of ADALBERTO Lane on 06/18/2025 at 11:29 AM EDT Sign off status: Pending * Provider: Pascual Tamez Date: 1 11/23/2023 Generated for Guido callahan/Radu/eTransmitting on: 0 06/18/2025 11:29 AM EDT
--- OUTSIDE RECORDS SUMMARY | 2024-09-23 11:15 | XMS_ITS ---
Author Organization [facility] vices Address [address] [place], [place] [address] Care Team Providers Care Layer Up Name Role Phone Yudy Salmon Primary Care Provider Qian Mcbride Unavailable [phone] Allergies No Known Allergies REASON FOR VISIT Wellness Medications Medication SIG (Take, Route, Frequency, Duration) Notes Start Date End Date Status Gabapentin 800 MG TAKE 1 TABLET BY MOUTH Four TIMES DAILY Oral for 5 days Active Propranolol HCl 10 MG 1 tablet Oral Two times a day, as needed for 30 days Active cloNIDine HCl 0.1 MG take 1 tablet by mouth three times a day if needed Oral for 30 Days Active hydrOXYzine HCl 50 MG take 1 tablet by mouth twice a day if needed Oral for 30 Days Active Ibuprofen takes 800 mg as needed Active Ondansetron 4 MG Oral for 4 Days as needed Active Omeprazole 40 MG 1 capsule 30 minutes before morning meal Oral Once a day for 30 days Active valACYclovir HCl 500 MG take 1 tablet by mouth once daily Oral as needed for 30 days Active Zolpidem Tartrate 10 MG take 1 tablet by mouth at bedtime Oral for 15 Days Active Social History Sex Assigned At : Social History Observation Description Sex Assigned At Female Encounters Encounter Location Date Provider Diagnosis Main [address] [place] [id number] 09/23/2024 Qian Reed Plan Of Treatment No Information Progress Notes * CECIL, EmcarissaDOB: 1 (34 yo F)Acc No.[id number]:09/23/2024 Medical Note Patient: Merna BERNARD Provider: Tanya Mcbride MD :1990 A ge:33 Y S ex:Female Date:09/23/2024 Address:[address] [place] [address] [address], [id number] Pcp:Yudy Salmon Subjective: * Chief Complaints: * [...] N .K.D.A. Objective: * Vitals: * Examination: C QM Exceptions: Currently taking Aspirin: A spirin Use: N o Assessment: Plan: * Treatment: * Billing Information: * Visit Code: * Procedure Codes: * Electronic signature of Anson Mcbride MD on 06/18/2025 at 11:29 AM EDT Sign off status: Pending * Provider: Tanya Mcbride MD Date: 11/23/2023 Generated for Guido callahan/Faxing/eTransmitting on: 0 06/18/2025 11:29 AM EDT History and Physical Notes * Examination Category Sub-Category Detail Notes Category Not es CQM Exceptions Currently taking Aspirin: Aspirin Use:: No
--- OUTSIDE RECORDS SUMMARY | 2025-05-20 05:26 | XMS_ITS | Continuity of Care Document ---
Author Organization [facility] Address [address] [place] [address] Phone Care Team Providers Care Cena Name Role Phone Mitzy Morris Unavailable Unavaila ble Allergies, Adverse Reactions, Alerts Substance Reaction Status Criticality No Known Allergies Active No Inform ation Medications Medication Instructions Dosage Effective Dates (start - stop) Status Comments omeprazole 40 mg capsule,delayed release take 1 capsule by oral route every day before a meal 40 MG - Active hydroxyzine HCl 50 mg tablet take 1 tablet by oral route 4 times every day as needed for nerves - Active gabapentin 800 mg tablet take 1 tablet by oral route 4 times every day 800 MG - Active clonidine HCl 0.1 mg tablet 1 at hs as needed for nerves - Active propranolol 10 mg tablet take 1 tablet by oral route 3 times every day as needed for anxiety - Active naltrexone 50 mg tablet take 2 tablet by oral route every day 100 MG - Active valacyclovir 500 mg tablet take 1 tablet by oral route every day 500 MG - Active ondansetron HCl 4 mg tablet take 2 tablet by oral route 2 times daily - Active multivitamin tablet - Active Procedures Procedure Date Resin Composite 3s; Posterior 5 Resin Composite 3s; Posterior Oral Hygiene Instruction OFFICE/OUTPATIENT VISIT, EST Bp scrn perf rec interval DIAST BP < 80 MM HG SYST BP < 130 MM HG Mar-12-2025 MED LIST DOCD IN [facility] MEDS BY RX/DR IN [facility] Comp Oral Eval New/estab Patient 2024 Oral Hygiene Instruction REMOVE DRUG IMPLANT DEVICE OFFICE/OUTPATIENT VISIT, EST DIAST BP 80-89 MM HG SYST BP >=130-139MM HG MED LIST DOCD IN [facility] RVW MEDS BY RX/DR IN [facility] PT TOBACCO USE DONE VD TLK PREV VISIT, EST, AGE 18-39 No Charge OFFICE/OUTPATIENT VISIT, EST DIAST BP 80-89 MM HG SYST BP < 130 MM HG MED LIST DOCD IN [facility] RVW MEDS BY RX/DR IN [facility] OFFICE/OUTPATIENT VISIT, EST Bp scrn perf rec interval DIAST BP < 80 MM HG SYST BP < 130 MM HG MED LIST DOCD IN [facility] RVW MEDS BY RX/DR IN [facility] Pos clin depres scrn f/u doc OFFICE/OUTPATIENT VISIT, EST Bp scrn perf rec interval DIAST BP < 80 MM HG SYST BP < 130 MM HG MED LIST DOCD IN [facility] RVW MEDS BY RX/DR IN [facility] PT TOBACCO USE DONE [facility] TLK OFFICE/OUTPATIENT VISIT, NEW DIAST BP 80-89 MM HG SYST BP < 130 MM HG MED LIST DOCD IN [facility] RVW MEDS BY RX/DR IN [facility] Pt inelig neg scrn depres Acute Detox Professor Of Literacy Acute Detox Professor Of Literacy ROUTINE VENIPUNCTURE DRUG TEST PRSMV DIR OPT OBS Acute Detox Professor Of Literacy Acute Detox Professor Of Literacy Acute Detox Professor Of Literacy Acute Detox Professor Of Literacy Acute Detox Professor Of Literacy ROUTINE VENIPUNCTURE DRUG TEST PRSMV DIR OPT OBS ASSAY OF BREATH ETHANOL URINE TEST Oral Hygiene Instruction Limited Oral Eval Extract; Erupted Th/exposted Rt 023 Advance Directives Directive Yes / No Effective Date File Name No Information Encounters Encounter Description Practice Location Reason(s) For Visit Diagnoses Date Provider Providers Copied on Encounter [facility], [address] [place] [address], [id number], tel:[phone] [facility] No Information 5 Rice WHCNP Mitzy. [address], [place], [id number] , [place]. tel:[phone] [facility], [address] [place] [address], [id number], [place] tel:[phone] [facility] No Information 5 Plank DO Joe. [address], [place], [id number] , [place]. tel:[phone] [facility], [address] [place] [address], [id number], [place] tel:[phone] [facility] No Information 5 Plank DO Joe. [address], [place], [id number] , [place]. tel:[phone] [facility], [address] [place] [address], [id number], [place] tel:[phone] Dental Clinic Encounter for screening for dental disorders 5 Dru Foss. [address], [place], [id number] , [place]. tel:[phone] OFFICE/OUTPAT IENT VISIT, [facility], [address], [place], [id number], [place] tel:[phone] [facility] HCV (chief complaint)e ye problem (chief complaint)L ab draw (chief complaint) Chronic viral hepatitis CBody mass index [BMI] 24.0-24.9, adult 5 Plank DO Joe. [address], [place], [id number] , [place]. tel:[phone] [facility], [address], [place], [id number], [place] tel:[phone] Dental Clinic Dental new (chief complaint) Encounter for screening for dental disorders 5 Narayan Delvalle. [address] [place], [place], [id number] , [place]. tel:[phone] [facility], [address], [place], [id number], [place] tel:[phone] [facility] Chronic viral hepatitis C 5 Plank DO Joe. [address], [place], [id number] , [place]. tel:[phone] [facility], [address] [place] [address], [id number], [place] tel:[phone] [facility] Nexplanon Removal (chief complaint)P reconceptua l Counseling (chief complaint) Nexplanon removalBody mass index [BMI] 24.0-24.9, adultEncounter for surveillance of other contraceptives 5 Rick Xiao. [address], [place], [id number] , [place]. tel:[phone] OFFICE/OUTPAT IENT VISIT, [facility], [address], [place], [id number], [place] tel:[phone] [facility] Follow Up (chief complaint) Body mass index [BMI] 23.0-23.9, adultChronic viral hepatitis CAlcohol abuse with alcohol-induced anxiety disorderAnxiety disorder, unspecifiedBody mass index [BMI] 24.0-24.9, adult 5 Plank DO Joe. [address], [place], [id number] , [place]. tel: [phone] PREV VISIT, EST, AGE 18-39 [facility], [address], [place], [id number], [place] tel:[phone] [facility] annual exam (chief complaint) Encounter for gynecological examination (general) (routine) without abnormal findingsBody mass index [BMI] 24.0-24.9, adult- STD screen- STD High risk heterosexual behavior 5 Braden [facility] Mitzy. [address], [place], [id number] , [place]. tel: [phone] [facility], [address], [place], [id number], [place] tel:[phone] [facility] No Information 5 Plank DO Joe. [address], [place], [id number] , [place]. tel: [phone] [facility], [address], [place], [id number], [place] tel:[phone] [facility] No Information 5 Plank DO Joe. [address], [place], [id number] , [place]. tel: [phone] [facility], [address], [place], [id number], [place] tel:[phone] [facility] No Information 4 Plank DO Joe. [address], [place], [id number] , [place]. tel: [phone] OFFICE/OUTPAT IENT VISIT, EST [facility], [address], [place], [id number], [place] tel:[phone] [facility] f/u labs (chief complaint)U DS Measures (chief complaint) Alcohol abuse with alcohol-induced anxiety disorderChronic viral hepatitis CBody mass index [BMI] 25.0-25.9, adult 4 Plank DO Joe. [address], [place], [id number] , [place]. tel:[phone] OFFICE/OUTPAT IENT VISIT, [facility], [address], [place], [id number], [place] tel:[phone] [facility] F/U (chief complaint)L ab Draw (chief complaint) Chronic viral hepatitis CAcute pneumoniaAlcohol abuse with alcohol-induced anxiety disorderBody mass index [BMI] 25.0-25.9, adult 4 Plank DO Joe. [address] [place] [address], [id number] , [place]. tel:[phone] OFFICE/OUTPAT IENT VISIT, [facility], [address], [place], [id number], [place] tel:[phone] [facility] F/U Hospital Visit (chief complaint) Body mass index [BMI] 26.0-26.9, adultAcute pneumoniaChronic viral hepatitis CNoncompliance with medications 4 Plank DO Joe. [address], [place], [id number] , [place]. tel: [phone] OFFICE/OUTPAT IENT VISIT, [facility], [address], [place], [id number], [place] tel:[phone] [facility] Establish Care (chief complaint) Chronic viral hepatitis CAlcohol abuse with alcohol-induced anxiety disorderAnxiety disorder, unspecifiedBody mass index [BMI] 26.0-26.9, adult 4 Plank DO Joe. [address], [place], [id number] , [place]. [phone] [facility], [address], [place], [id number], [place] tel:[phone] [facility] No Information Sep-1 4 Klidas Yas. [address], [place], [id number] , [place]. tel: [phone] [facility], [address], [place], [id number], [place] tel:[phone] [facility] No Information Sep- 4 Klidas Yas. [address], [place], [id number] , [place]. tel: [phone] [facility], [address], [place], [id number], [place] tel:[phone] [facility] No Information Sep- 4 Klidas Yas. [address], [place], [id number] , [place]. tel: [phone] [facility], [address], [place], [id number], [place] tel:[phone] [facility] No Information Sep- 4 Klidas Yas. [address], [place], [id number] , [place]. tel: [phone] [facility], [address], [place], [id number], [place] tel:[phone] [facility] No Information Sep- 4 Klidas Yas. [address], [place], [id number] , [place]. tel: [phone] [facility], [address], [place], [id number], [place] tel:[phone] [facility] No Information Sep-11 22- 4 Romulo Adrian. [address] [place], [address], [place]. tel: [phone] [facility], [address], [place], [id number], [place] tel:[phone] [facility] No Information 4 Alexandrea Sorenson. [address], [place], [id number] , [place]. tel: [phone] [facility], [address], [place], [id number], [place] tel:[phone] Dental Clinic de (chief complaint) Encounter for screening for dental disorders 3 Anna Marie Mckeon. [address] [place], [address], [place]. tel:[phone] Family History Family Member Type Diagnosis Age At Onset Mother Problem Alive and well Immunizations Vaccine Date Status Comments Fluarix/Flulaval refused Source: New Immunization Record Spikevax 12y+ refused Source: New Im munization Record Payers Payer name Insurance type Covered democrat ID Authoriza tion(s) Medicaid Primary - [facility] [id number] Social History Type Description Quantity Date Captured Comments Alcohol Use Details Unknown Caffeine Use Details Unknown Tobacco Use Status Smoking Status No Information Sex Female Sexual Orientation Straight or heterosexual Gender Identity Female Chief Complaint And Reason For Visit No Information Reason For Referral Reason For Referral No Information Plan Of Treatment Date Type Action Status Goal Unhealthy drug u se screening. Due on due Goal Hepatitis C scre ening. Due on due Goal RLP. Due on due Goal HPV. Due on due Goal Influenza vaccine. Due on due Goal Tdap Vaccine. Due on 2024 due Goal PRAPARE ASSESSMENT. Due on due Goal Hep A. Due on du e Goal Depression scree prasanna. Due on due Goal Tdap. Due on due Goal RLP. Due on due Goal HPV. Due on due Goal Tdap. Due on due Goal Tdap Vaccine. Due on 2024 due Goal Hepatitis C scre ening. Due on due Goal Unhealthy drug u se screening. Due on due Goal Influenza vaccine. Due on Hi due Goal PRAPARE ASSESSMENT. Due on due Goal Depression scree prasanna. Due on due Goal Hep A. Due on du e Goal RLP. Due on due Goal Influenza vaccine. Due on Hi due Goal Depression scree prasanna. Due on due Goal PRAPARE ASSESSMENT. Due on due Goal Tdap. Due on due Goal Tdap Vaccine. Due on 2024 due Goal HPV. Due on due Goal Unhealthy drug u se screening. Due on due Goal Hepatitis C scre ening. Due on due Goal Tdap Vaccine. Due on 2024 due Goal HPV. Due on due Goal Tdap. Due on due Goal Influenza vaccine. Due on Hi due Goal Unhealthy drug u se screening. Due on due Goal RLP. Due on due Goal Hepatitis C scre ening. Due on due Goal Hep A. Due on du e Goal Depression scree prasanna. Due on due Goal PRAPARE ASSESSMENT. Due on due Goal Tobacco cessation counseling completed Goal Lifestyle education regardin g diet completed Goal Hep A. Due on du e Goal RLP. Due on due Goal Tdap Vaccine. Due on 2024 due Goal Unhealthy drug u se screening. Due on due Goal Influenza vaccine. Due on due Goal PRAPARE ASSESSMENT. Due on due Goal HPV. Due on due Goal Hepatitis C scre ening. Due on due Goal Tdap. Due on due Goal Depression scree prasanna. Due on due Goal Tdap. Due on due Goal PRAPARE ASSESSMENT. Due on due Goal Depression scree prasanna. Due on due Goal HPV. Due on due Goal Unhealthy drug u se screening. Due on due Goal Hepatitis C scre ening. Due on due Goal Tdap Vaccine. Due on 2024 due Goal RLP. Due on due Goal Influenza vaccine. Due on due Goal RLP. Due on due Goal HPV. Due on due Goal Hepatitis C scre ening. Due on due Goal Tdap. Due on due Goal Unhealthy drug u se screening. Due on due Goal PRAPARE ASSESSMENT. Due on due Goal Influenza vaccine. Due on due Goal Tdap Vaccine. Due on 2024 due Goal Depression scree prasanna. Due on due Goal Hep A. Due on du e Goal Tobacco cessation counseling completed Goal Lifestyle education regardin g diet completed Goal Hep A. Due on du e Goal Unhealthy drug u se screening. Due on due Goal HPV. Due on due Goal Tdap. Due on due Goal Depression scree prasanna. Due on due Goal Influenza vaccine. Due on due Goal RLP. Due on due Goal Hepatitis C scre ening. Due on due Goal PRAPARE ASSESSMENT. Due on due Goal Tdap Vaccine. Due on 2024 due Goal Influenza vaccine. Due on due Goal HPV. Due on due Goal PRAPARE ASSESSMENT. Due on due Goal Tdap. Due on due Goal Hepatitis C scre ening. Due on due Goal Depression scree prasanna. Due on due Goal Tdap Vaccine. Due on 2024 due Goal Unhealthy drug u se screening. Due on due Goal RLP. Due on due Goal Hep A. Due on du e Goal Tdap Vaccine. Due on 2023 due Goal PRAPARE ASSESSMENT. Due on due Goal HPV. Due on due Goal Depression scree prasanna. Due on due Goal RLP. Due on due Goal Unhealthy drug u se screening. Due on due Goal Hepatitis C scre ening. Due on due Goal Tdap. Due on due Goal Influenza vaccine. Due on due Goal Lifestyle education regardin g diet completed Goal Tobacco cessation counseling completed Goal Influenza vaccine. Due on due Goal RLP. Due on due Goal Tdap. Due on due Goal PRAPARE ASSESSMENT. Due on N due Goal Depression scree prasanna. Due on due Goal Unhealthy drug u se screening. Due on due Goal HPV. Due on due Goal Hepatitis C scre ening. Due on due Goal Tdap Vaccine. Due on 2023 due Goal Lifestyle education regardin g diet completed Goal Tobacco cessation counseling completed Goal PRAPARE ASSESSMENT. Due on O due Goal Tdap. Due on due Goal Influenza vaccine. Due on Oc due Goal Unhealthy drug u se screening. Due on due Goal HPV. Due on due Goal Depression scree prasanna. Due on due Goal Hepatitis C scre ening. Due on due Goal RLP. Due on due Goal Tdap Vaccine. Due on 2023 due Goal Lifestyle education regardin g diet completed Goal Tobacco cessation counseling completed Goal Hep A. Due on du e Goal RLP. Due on due Goal Influenza vaccine. Due on Se due Goal PRAPARE ASSESSMENT. Due on S due Goal Tdap. Due on due Goal HPV. Due on due Goal Depression scree prasanna. Due on due Goal Tdap Vaccine. Due on 2023 due Goal Unhealthy drug u se screening. Due on due Goal Hepatitis C scre ening. Due on due Goal Tobacco cessation counseling completed Goal Lifestyle education regardin g diet completed Goal RLP. Due on due Goal Influenza vaccine. Due on due Goal PRAPARE ASSESSMENT. Due on due Goal Tdap Vaccine. Due on 2022 due Goal Depression scree prasanna. Due on due Goal Tdap. Due on due Referral Ordered: X-RAY EXAM CHEST 2 VIEWS ordered Future Order: Lab Order Hepatiti s A Virus (HAV) Antibody, Total With Reflex to IgM ([id number]), Ordered on: Ordered Future Order: Lab Order HCV Elizabeth typing Non Reflex ([id number]), Ordered on: Ordered Future Order: Lab Order HCV Fibr oSURE ([id number]), Ordered on: Ordered Future Order: Lab Order Prothrom bin Time (PT) ([id number]), Ordered on: Ordered Future Order: Lab Order hCG,Beta Subunit, Qnt, Serum ([id number]), Ordered on: Ordered Future Order: Lab Order CBC With Differential/Platelet ([id number]), Ordered on: Ordered Future Order: Lab Order Comp. Me tabolic Panel (14) ([id number]), Ordered on: Ordered Future Order: Lab Order Hepatiti s B Virus (HBV) Screening and Diagnosis ([id number]), Ordered on: Ordered Future Order: Lab Order TSH ([id number]), Ord ered on: Ordered Future Order: Lab Order HIV 1/0/ 2 Ag/Ab with Reflex ([id number]), Ordered on: Ordered Future Order: Lab Order HIV 1/0/ 2 Ag/Ab with Reflex ([id number]), Ordered on: Ordered Future Order: Lab Order AFP, Ser um, Tumor Marker ([id number]), Ordered on: Ordered Future Order: Lab Order HCV Fibr oSURE ([id number]), Ordered on: Ordered Future Order: Lab Order HCV Elizabeth typing Non Reflex ([id number]), Ordered on: Ordered Future Order: Lab Order HCV Anti body W/ Reflex To Quantitative Real Time Pcr ([id number]), Ordered on: Ordered Future Order: Lab Order hCG,Beta Subunit, Qnt, Serum ([id number]), Ordered on: Ordered Future Order: Lab Order CBC With Differential/Platelet ([id number]), Ordered on: Ordered Future Order: Lab Order Comp. Me tabolic Panel (14) ([id number]), Ordered on: Ordered Future Order: Lab Order Hepatiti s A Virus (HAV) Antibody, Total With Reflex to IgM ([id number]), Ordered on: Ordered Future Order: Lab Order HCV Elizabeth typing Non Reflex ([id number]), Ordered on: Ordered Future Order: Lab Order HCV Fibr oSURE ([id number]), Ordered on: Ordered Future Order: Lab Order Prothrom bin Time (PT) ([id number]), Ordered on: Ordered Future Order: Lab Order hCG,Beta Subunit, Qnt, Serum ([id number]), Ordered on: Ordered History Of Present Illness Encounter Date Complaint History Of Prese nt Illness eye problem Pt is c/o eye pa in and swelling. She states it started this morning. Pt states her eye is very irritated. MARQUES Calle HCV Pt is here to di gususs HCV treatment. She also needs refills of her gabapentin. MAR[facility]ES Calle Lab draw Labs attempted m ultiple times by this RN and Dr. Phan without success. Requisition printed and instructed pt on what outpatient facility to go to for these to be completed. Pt verbalized understanding MARQUES Calle Dental new Dental new, esta b dental care Nexplanon Removal Preconceptual Counseling Follow Up Patient is here for follow up. Patient states she got her labwork done yesterday morning. Patient denies any concerns at this time. Patient states she is still nauseous, but does see an improvement with it. Patient states she has had some weight loss. Patient admits to smoking cigarettes, roughly half pack per day. Patient denies use of drugs or alcohol.//MARQUES Mejía annual exam Currently pregna nt: no. The client states using Nexplanon for control. Last LMP was 12/03/2024. The client does use tobacco. The client formerly drank alcohol. Additional information: Patient is here to establish care. She is currently using Nexplanon and desires to have it removed as she would desire a in the near future. Denies other [employer]IVER problems at this time.. f/u labs Pt is here to re view labs. Pt denies new issues or concerns. Pt was initially going to try vivitrol but she does not want to proceed. She is currently on one naltrexone daily now. She states that it does appear to be helping. Pt admits to some cravings of ETOH. MARQUES Calle UDS Measures Pt due for pap. Scheduled with LINDSEY Mora. MARQUES Calle Lab Draw Lab draw attempt ed x3 with no success by Manuel Estrella LPN and Sarah Casper RN. Lab requisition given.//Javed MOHAN. F/U Patient presents for pneumonia follow-up, and discuss HCV and vivitrol. Patient states she has been taking naltrexone about a month ago, would like to keep taking naltrexone. Needs refill. Patient DOC was benzos, alcohol, opiates. Last use was before the hospital. Patient is not interested in vivitrol at this time. Patient states she has been doing well since having pneumonia. Patient does experience trouble breathing at times, but thinks it is from smoking. Patient states she has been having brain fog, patient states when she had pneumonia she passed out and her boyfriend found her. States she was placed in a coma for a week. States since then she just feels out of it. Patient states she would like to begin HCV treatment. Will get her in touch with our [facility]. Labs positive for HCV in July. Denies any other concerns at this time. Struggles with depression and anxiety. Smokes 0.5 pack of cigarettes/day and vapes at times.//Javed MOHAN.Denies flu and covid vaccine.//Javed MOHAN. F/U Hospital Visit Patient is he re for follow up regarding hospital visit for pneumonia. Patient states she has no concerns at this time. Patient states she is not experiencing shortness of breath or chest pain. Patient states she was not symptomatic prior to being diagnosed with pneumonia and hospitalized. Patient states she was sent home with an antibiotic, however she misplaced them and was unable to finish them. Patient refuses Flu vaccination at this time. Patient admits to smoking cigarettes, around half pack per day. Patient denies use of alcohol or drugs./Jenny Mejíadmitted almost 2 wks formerly [facility]. .tp Establish Care Patient would [facility] to establish care. Patient hasn't seen her primary care physician for around 3 months. Patient denies any concerns today. Patient admits to smoking cigarettes, about 5 packs per week. Patient denies use of alcohol and drugs. //MARQUES Mejía de de Functional Status Date Functional Assessmen t No Information Instructions Date Instruction Additional Infor mation Giving encouragement to exercise Related to Body mass index [BMI] 24.0-24.9, adult Lifestyle education regarding di et Related to Body mass index [BMI] 24.0-24.9, adult Giving encouragement to exercise Related to Body mass index [BMI] 24.0-24.9, adult Dietary needs education Related to Body mass index [BMI] 24.0-24.9, adult Giving encouragement to exercise Related to Body mass index [BMI] 23.0-23.9, adult Lifestyle education regarding di et Related to Body mass index [BMI] 23.0-23.9, adult Encouraged good diet [place] intake, exercise and healthy lifestyle choices. Recommend daily multi-vitamin with Folic acid. Understands the need for non-violent partners in a consensual relationship. Patient desires a in the near future. Reviewed control options for prevention and she desires to have her Nexplanon removed in the near future. Appt made with Dr. Pelayo HIV and [facility] already knows she is positive for Hep C Related to Encounter for gynecological examination (general) (routine) without abnormal findings Rapid STD screen obt ained in office today. If result is negative patient will not receive a call. If positive, [facility] will call patient within 24 hours. Patient states understanding. Encouraged to use condoms in the future to prevent STDs Related to - STD High risk heterosexual behavior Giving encouragement to exercise Related to Body mass index [BMI] 24.0-24.9, adult Dietary needs education Related to Body mass index [BMI] 24.0-24.9, adult Lifestyle education regarding di et Related to Body mass index [BMI] 25.0-25.9, adult Giving encouragement to exercise Related to Body mass index [BMI] 25.0-25.9, adult Lifestyle education regarding di et Related to Body mass index [BMI] 25.0-25.9, adult Giving encouragement to exercise Related to Body mass index [BMI] 25.0-25.9, adult Giving encouragement to exercise Related to Body mass index [BMI] 26.0-26.9, adult Lifestyle education regarding di et Related to Body mass index [BMI] 26.0-26.9, adult Giving encouragement to exercise Related to Body mass index [BMI] 26.0-26.9, adult Lifestyle education regarding di et Related to Body mass index [BMI] 26.0-26.9, adult Assessments Type Assessment Date No Information Patient Care Teams Name Effective Dates (start - stop) Status Members No Information
--- OUTSIDE RECORDS SUMMARY | 2025-06-18 11:29 | XMS_ITS | Clinical Summary ---
Author Organization [employer] Address [id number] [address] [place] [address] Care Team Providers Care Nurse Practitioner Manager Name Role Phone No Pcp, No Pcp Primary Care Provider Unavailabl e Allergies No known active allergies Medications * This document contains information received from the source organization and may not represent a complete record from that organization. gabapentin (NEURONTIN) 800 mg tablet Take by mouth 3 (three) times a day. Active buprenorphine-n aloxone (SUBOXONE) 8-2 mg per [address] tablet Place 1 tablet under the tongue in the morning and 1 tablet before bedtime. Active omeprazole (PriLOSEC) 40 mg capsule Take 1 capsule (40 mg total) by mouth in the morning. Active folic acid (FOLVITE) 1 mg tablet Take 1 tablet (1 mg total) by mouth in the morning. Active ondansetron (ZOFRAN) 4 mg tablet Take 1 tablet (4 mg total) by mouth every 8 (eight) hours as needed for nausea or vomiting. Active acetaminophen (TYLENOL EXTRA STRENGTH) 500 mg tablet Take 1 tablet (500 mg total) by mouth every 6 (six) hours as needed for pain, fever or headaches. 30 tablet 3 Active Additional Information Patient not taking.Reported on 03/14/2023 ibuprofen (MOTRIN) 800 mg tablet Take 1 tablet (800 mg total) by mouth every 6 (six) hours as needed for pain. Active acamprosate (CAMPRAL) 333 mg EC tablet Take 1 tablet (333 mg total) by mouth. 2 Active cloNIDine (CATAPRES) 0.1 mg tablet Take 1 tablet (0.1 mg total) by mouth. 3 Active propranoloL (INDERAL) 10 mg tablet Take 1 tablet (10 mg total) by mouth. 3 Active hydrOXYzine (ATARAX) 50 mg tablet Take 1 tablet (50 mg total) by mouth. 3 Active thiamine HCl (VITAMIN B-1) 100 mg tablet Take 1 tablet (100 mg total) by mouth in the morning. 3 Active etonogestreL (NEXPLANON) 68 mg implant 1 each (68 mg total) by subdermal route once. Active valACYclovir (VALTREX) 500 mg tablet Take 1 tablet (500 mg total) by mouth in the morning. 30 tablet 12 3 Active Active Problems Problem Noted Date Diagnosed Date Macrocytic anemia 12/19/2022 Thrombocytopenia 12/19/2022 Substance induced mood disorder 10/01/2022 Opioid use disorder, severe, dependence 10/01/20 Alcohol use disorder, severe, dependence 022 Hypokalemia 09/24/2022 Hypocalcemia 09/24/2022 Suicidal ideation 09/24/2022 Alcoholic intoxication without complication 02/2022 Alcohol withdrawal syndrome with complication Anxiety Depression Substance abuse Immunizations No known immunizations Family History Medical History Relation Name Comments Depression Maternal Grandfather Cancer Maternal Grandmother LYMPHOM A Heart disease Maternal Grandmother Depression Mother Relation Name Status Comments Maternal Grandfather Maternal Grandmother Mother Social History Tobacco Use Types Packs/Day Years Used Date Smoking Tobacco: Every Day Cigarettes Smokeless Tobacco: Never Tobacco Cessation:Ready to Q uit: Not Asked; Counseling Given: Not Answered Alcohol Use Standard Drinks/Week Comments Not Currently 0 (1 standard drink = 0.6 oz pur e alcohol) SOBER SINCE Dec Hunger Screening Answer Date Recorded Within the past 12 months we worried whether our food would run out before we got money to buy more. Sometimes True 023 Within the past 12 months th e food we bought just didn't last and we didn't have money to get more. Sometimes True 03/14/2023 Comments No Sex and Gender Information Value Date Recorded Sex Assigned at Not on file Legal Sex Female 12:06 AM EDT Gender Identity Not on file Sexual Orientation Not on file Last Filed Vital Signs Vital Sign Reading Time Taken Comments Blood Pressure 116/78 04/04/2023 1:12 PM EDT Pulse 55 12/21/2022 3:52 AM EST Temperature 36.7 C (98.1 F) 12/21/2022 3:52 AM EST Respiratory Rate 11 12/21/2022 3:52 AM EST Oxygen Saturation 96% 12/21/2022 3:52 AM EST Inhaled Oxygen Concentration - - Weight 83.6 kg (184 lb 6.4 oz) 04/04/2023 1:12 P M EDT Height 172.7 cm (5' 8 ) 04/04/2023 1:12 PM EDT Body Mass Index 28.04 04/04/2023 1:12 PM EDT Plan of Treatment Health Maintenance Due Date Last Done Comments Depression Screening 2003 Tobacco Screening 2003 DTaP,Tdap and Td Vaccines (1 - Tdap) 2010 Adult BMI Screening 04/04/2024 04/04/2023 Influenza Vaccine 07/21/2025 Pap Smear 03/14/2026 03/14/2023, 03/14/2023 Goals Goal Patient Goal Type Associated Problems Recent Progress Patient-Stated? Author safe discharge General Yes Jennifer Lewis, ERMIAS Note: Evaluation of progress towards goal: Patient agreeable to inpatient detox at [facility]. [facility] agrees to transport patient to detox from the hospital. Medical Devices Not on file Procedures Procedure Name Priority Date/Time Associated Diagnosis Comments HIGH RISK HPV W/DALLIN Routine 03/14/2023 7:09 AM EDT Screening for cervical cancer from Last 3 Months or Most Recently Relevant to Health Maintenance Results * High risk HPV w/dallin (03/14/2023 7:09 AM EDT) Hpv specimen type ThinPrep 03/15/2023 7:10 AM EDT [facility] Hpv 16 Negative Negative^N egative 03/17/2023 12:20 PM EDT [facility] Hpv 18 Negative Negative^N egative 03/17/2023 12:20 PM EDT [facility] Other high risk hpv Negative Negative^N egative 03/17/2023 12:20 PM EDT [facility] Comment: HPV types 31,33,35,39,45,52,56,58,59,66 and 68 DNA were undetectable. THINP 03/14/2023 7:09 AM EDT 03/15/2023 7:10 AM EDT Melissa Bennett DIRECTOR INTERNAL CONTROL-[facility] LAB BLOOD ORDERABLES F inal Result [facility] [address] [facility], [place] [address] [facility] [address] [place] [address], [address] [place] [address] from Last 3 Months or Most Recently Relevant to Health Maintenance Insurance [facility] [employer] MEDICAID Advance Directives * Full Code (Latest Code Status on File) Date Activated Date Inactivated Comments 12/14/2022 8:38 PM 12/21/2022 12:01 PM * Full Code Date Activated Date Inactivated Comments 10/29/2022 8:59 PM 11/03/2022 3:36 PM * Full Code Date Activated Date Inactivated Comments 10/02/2022 8:30 PM 10/03/2022 3:04 PM * Full Code Date Activated Date Inactivated Comments 09/24/2022 9:23 AM 09/28/2022 3:10 PM * Full Code Date Activated Date Inactivated Comments 04/22/2022 4:42 AM 04/23/2022 8:15 PM Care Teams Nurse Practitioner Manager Relationship Specialty Start Date End Date No Pcp, No Pcp [place] [address] PCP - General Family Medicine 04/22/22
--- OUTSIDE RECORDS SUMMARY | 2025-06-18 11:29 | XMS_ITS | Encounter Summary ---
Author Organization [employer] Address [id number] [address] [place] [address] Care Team Providers Care Slagger Name Role Phone No Pcp, No Pcp Primary Care Provider Unavailabl e Encounter Details Date Type Department Care Team (Late st Contact Info) Description 04/25/2022 Telephone [facility] [address] [place] [address] Tina Diaz Social History Tobacco Use Types Packs/Day Years Used Date Smoking Tobacco: Every Day Cigarettes Smokeless Tobacco: Never Alcohol Use Standard Drinks/Week Comments Not Currently 0 (1 standard drink = 0.6 oz pure alcohol) quit 4 days ago. daily drinker 0.5-1 bottle of vodka per day Comments Unknown Sex and Gender Information Value Date Recorded Sex Assigned at Not on file Legal Sex Female 12:06 AM EDT Gender Identity Not on file Sexual Orientation Not on file COVID-19 Exposure Response Date Recorded In the last 10 days, have yo u been in contact with someone who was confirmed or suspected to have Coronavirus/COVID-19? No / Unsure 04/22/2022 12:53 PM EDT documented as of this encounter Miscellaneous Notes * Telephone Encounter - Tina Diaz - 04/25/2022 8:07 AM EDT ----- Message from Caity Avila MD sent at 04/23/2022 2:36 PM EDT ----- Please make an appointment with resident clinic after MRI brain. Thanks * Telephone Encounter - Patti Pretty - 04/25/2022 8:07 AM EDT 1st attempt- left voicemail * Telephone Encounter - Tina Diaz - 04/25/2022 8:07 AM EDT Please try to call this patient again. * Telephone Encounter - Lindy Macdonald - 04/25/2022 8:07 AM EDT Called patient to schedule appointment. Patient has not scheduled MRI yet and was informed to schedule that than call the clinic back to schedule a follow-up. documented in this encounter Plan of Treatment Not on file documented as of this encounter Visit Diagnoses Not on filedocumented in this encounter Care Teams Slagger Relationship Specialty Start Date End Date No Pcp, [place] [address] PCP - General Family Medicine 04/22/22 documented as of this encounter
--- OUTSIDE RECORDS SUMMARY | 2025-06-18 11:29 | XMS_ITS | Patient Health Record ---
Author Organization [facility] vices Address [address] [place] [id number] Care Team Providers Care Revenue Agent Name Role Phone Yudy Salmon Primary Care Provider Richard Hopson Unavailable [phone] JoiBeverly Moody Unavailable [phone] Reed, Qian Unavailable [phone] Allergies No Known Allergies Results Component Value Reference Range Notes GABAPENTIN URINE Reviewed date:07/08/2024 08:52:20 AM Interpretation: Performing Lab: Notes/Report: GABAPENTIN, URINE 488.9 INTERPRETIVE INFORMATION: Gabapentin, Urine Positive cutoff: 5.0 ug/mL For medical purposes only; not valid for forensic use. The absence of expected drug(s) and/or drug metabolite(s) may indicate non-compliance, inappropriate timing of specimen collection relative to drug administration, poor drug absorption, diluted/adulterated urine, or limitations of testing. The concentration value must be greater than or equal to the cutoff to be reported as a quantitative result. Interpretive questions should be directed to the laboratory. This test was developed and its performance characteristics determined by [facility]. It has not been cleared or approved by the US Food and Drug Administration. This test was performed in a CLIA certified laboratory and is intended for clinical purposes. Performed By: [facility] [address] [place] [id number] Electronic Integrated Systems Mechanic: Eligio Sanders MD, PhD CLIA Number: [id number] Pathology [employer] [address] [place] [address] CLIA No. [id number] CAP Accreditation No. [id number] Electronic Integrated Systems Mechanic: Emma Dotson M.D. DRUGS OF ABUSE 8+ PANEL URIN E - SCREEN REFLEX TO CONFIRMATION Reviewed date:07/08/2024 08:52:03 AM Interpretation: Performing Lab: Notes/Report: AMPHETAMINES NEGATIVE BARBITURATES NEGATIVE BENZODIAZEPINE NEGATIVE COCAINE NEGATIVE NEGATIVE METHADONE NEGATIVE OPIATES NEGATIVE NEGATIVE PHENCYCLIDINE NEGATIVE NEGATIVE THC (CANNABIS) POSITIVE NEGATIVE ETHANOL SCREEN, CLINICAL NEGATIVE NEGATIVE SEE BELOW FOR THRESHOLDS AND IMPORTANT METHOD NOTES ANALYTE SCREENING CUTOFF AMPHETAMINES 1000 NG/ML BARBITURATES 200 NG/ML BENZODIAZEPINES 200 NG/ML CANNABINOIDS (THC) 50 NG/ML COCAINE METABOLITES 300 NG/ML OPIATE METABOLITES 300 NG/ML METHADONE 300 NG/ML PHENCYCLIDINE (PCP) 25 NG/ML ETHANOL 20 NG/ML NOTE: Screening methodology is qualitative Enzyme Immunoassay. Patient compliance, hydration status, timing and dose of medications, drug absorption and specimen quality may affect screening assay. False positive screen results may occur due to cross-reactivity. For clinical discrepancies, consider directed testing for specific compounds or contact the laboratory within specimen stability to forward for confirmatory testing. This test is specified for medical purposes only. It is not valid for forensic use. THC CONFIRMATION CLINICAL Reviewed date:07/08/2024 08:51:55 AM Interpretation: Performing Lab: Notes/Report: THC 310 <3 ng/mL THC/CREATININE RATIO 886 CREATININE 35 20-250 mg/dL ADULTERANT Negative The urine THC/creatinine ratio is the best monitor to determine the possibility of continued drug usage. With abstinence, the ratio should decrease within one week by a factor of two or more. Confirmation (GC/MS) Decision Limit THC (76-rka-3-woajmgu-1-gidlcyrjnc cannabinol) 3 ng/mL Adulterant Decision Limit: General Oxidants 200 ug/mL The adulterant assay tests for General Oxidants, including Chromates and Nitrites. Adulterants are substances either ingested or added directly to a urine specimen to prevent the detection of drug use. If applicable, any drug confirmation testing reported here was developed and the performance characteristics determined by [facility]. This confirmation testing has not been cleared or approved by the FDA. The laboratory is regulated under CLIA as qualified to perform high-complexity testing. This test is used for patient testing purposes. It should not be regarded as investigational or for research. Test performed at [facility], [address], [place] [address] Mis Harrison MD, PhD - Housing Project Manager Test performed at [facility] [address] [place] [address] CLIA Number [id number] Reason For Referral Reason Evaluation and appro priate therapy Diagnosis 1 Other oysterman (cur rent) drug therapy (Z79.899) Diagnosis 2 Opiate abuse, episod ic (F11.10) Diagnosis 3 Alcohol abuse (F10.1 0) Referral Organization [facility] Referring Provider First Name [facility] Referring Provider Last Name Mark Anthony Referring Provider Speciality Physician Battery Checker Referred Organization Main Referred Provider Margo Phillips Referred Address [address], [id number], Referred Provider Specialty Other Medica l Care General Notes Jimmy Montiel 11:37:40 AM >Pt declined to be scheduled. Clinical Notes Yanna Castaneda 03/2024 10:22:02 AM >While speaking with pt on the phone, I had asked her if she wanted to schedule with [facility] and she declined at this time. Referral Priority Routine Medications Medication SIG (Take, Route, Frequency, Duration) Notes Start Date End Date Status Ondansetron 4 MG Oral for 4 Days as needed Active Gabapentin 800 MG TAKE 1 TABLET BY MOUTH Four TIMES DAILY Oral for 5 days Active Omeprazole 40 MG 1 capsule 30 minutes before morning meal Oral Once a day for 30 days Active Propranolol HCl 10 MG 1 [...] Ibuprofen takes 800 mg as needed Active valACYclovir HCl 500 MG take 1 tablet by mouth once daily Oral as needed for 30 days Active Zolpidem Tartrate 10 MG take 1 tablet by mouth at bedtime Oral for 15 Days Active Social History Tobacco Use: Social History Observation Description Date Details (start date - stop date) Current Smoker NA - NA Sex Assigned At : Social History Observation Description Sex Assigned At Female CAGE-AID Questionnaire (2018 Edition) Question Answer Notes Have you ever felt that you ought to cut down on your drinking or drug use? Yes Have people annoyed you by c riticizing your drinking or drug use? Yes Have you ever felt bad or gu ilty about your drinking or drug use? Yes Have you ever had a drink or used drugs first thing in the morning to steady your nerves or to get rid of a hangover? Yes CAGE-AID Score 4 Interpretation Clinically Significant PRAPARE Question Answer Notes Date Completed/Updated: 07/02/2024 What is your current housing situation? I have h ousing Are you worried about losing your housing? No What is the highest level of school that you have finished? 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 Check all that apply Medicine or any health care (medical, dental, mental health or vision) Has lack of transportation k ept you from medical appointments, meetings, work or from getting things needed for daily living? No How often do you see or talk to people that you care about and feel close to? (For example: talking to friends on the phone, visiting friends or family, going to taoist or club meetings) More than 5 times a week How stressed are you? Stress is when someone feels tense, nervous, anxious, or can't sleep at night because their mind is troubled A little bit In the past year have you sp ent more than 2 nights in a row in a nursing home, intermediate, senior care center, or juvenile correctional facility? No Are you a refugee? No What country are you from? [place] Do you feel physically and e motionally safe where you currently live? Yes In the past year, have you b een afraid of your partner or ex-partner? No PRAPARE Score: 3 Tobacco Control (Standard) Question Answer Notes Tobacco use: Current every day smoker Additional Findings: Tobacco user Moderate cigar ette smoker (10-19 cigs/day) Problems Problem Type SNOMED Code ICD Code Onset Dates Problem Status W/U Status Risk Notes Problem Alcohol abuse (99228440) Alcohol abuse (F10.10) Active confirmed -per pt went through rehab at [facility] for a year -last Opioid / Alcohol use about 2, 3 weeks ago -taking Naltrexone PRN, discussed and referred to Margo Phillips for evaluation and appropriate therapy Problem Opiate abuse, episodic (F11.10) Active confirmed -per pt went through rehab at [facility] for a year -last Opioid / Alcohol use about 2, 3 weeks ago -taking Naltrexone PRN, discussed and referred to Margo Phillips for evaluation and appropriate therapy Vital Signs Heart Rate 66 /min 07/12/2024[facility], [facility] 07/12/2024 12:23:12 PM EDT > Temperature 98.3 degrees Fahrenheit 07/12/2024 [facility], [facility] 07/12/2024 12:23:12 PM EDT > Respiratory Rate 18 /min 07/12/2024[facility], [facility] 07/12/2024 12:23:12 PM EDT > Height-cm 172.72 cm 07/12/2024, [facility] 07/12/2024 12:23:12 PM EDT > Oximetry 97 % 07/12/2024[facility], [facility] 07/12/2024 12:23:12 PM EDT > Blood pressure diastolic 60 mm Hg 07/12/2024 [facility] 07/12/2024 12:23:12 PM EDT > Weight-kg 85.59 kg 07/12/2024, [facility] 07/12/2024 12:23:12 PM EDT > Height 68 in 07/12/2024[place], [facility] 07/12/2024 12:23:12 PM EDT > Blood pressure systolic 93 mm Hg 07/12/2024 [facility], [facility] 07/12/2024 12:23:12 PM EDT > Weight 188.7 lbs 07/12/2024 [facility] 07/12/2024 12:23:12 PM EDT > BMI 28.69 kg/m2 07/12/2024 [facility] 07/12/2024 12:23:12 PM EDT > Encounters Encounter Location Date Provider Diagnosis [address] [address] 07/02/2024 Yudy Salmon Right hip pain M25. 551 ; Right wrist pain M25.531 ; Other alf (current) drug therapy Z79.899 ; Dietary counseling Z71.3 ; Exercise counseling Z71.82 and Overweight (BMI 25.0-29.9) E66.3 [facility] [address] [facility] [place] [id number] 07/12/2024 Richard Hopson Other oysterman (cur rent) drug therapy Z79.899 ; Opiate abuse, episodic F11.10 and Alcohol abuse F10.10 Main [address] [facility] [place] [id number] 08/26/2024 Qian Mcbride Assessments Encounter Date Diagnosis (ICD Code) Assessment Notes Treatment Notes Treatment Clinical Notes Section Notes 07/02/2024 Right wrist pain (ICD-10 - M25.531) Unclear reason what prompted it I will get Xrays to r/o fracture. 07/02/2024 Right hip pain (ICD-10 - M25.551) New patient. previoly been seen at [facility]. Was getting gabapentin 800 mg QID there Now out of meds - last one taken this am. No records available. Will get urine tox today and get records. I will get Xrays of the spine and hip. Advised pt to use ibuprofen if she has pain, I will refill meds on the next visit if urine tox is negative and progress notes from previous provider Srniivas. 07/12/2024 Other oysterman (current) drug therapy (ICD-10 - Z79.899) -oysterman use of opioids and Gabapentin 07/12/2024 Opiate abuse, episodic (ICD-10 - F11.10) -per pt went through rehab at [facility] for a year -last Opioid / Alcohol use about 2, 3 weeks ago -taking Naltrexone PRN, discussed and referred to Margo Phillips for evaluation and appropriate therapy 07/12/2024 Alcohol abuse (ICD-10 - F10.10) -per pt went through rehab at [facility] for a year -last Opioid / Alcohol use about 2, 3 weeks ago -taking Naltrexone PRN, discussed and referred to Margo Phillips for evaluation and appropriate therapy 07/02/2024 Other oysterman (current) drug therapy (ICD-10 - Z79.899) 07/02/2024 Dietary counseling (ICD-10 - Z71.3) 07/02/2024 Exercise counseling (ICD-10 - Z71.82) 07/02/2024 Overweight (BMI 25.0-29.9) (ICD-10 - E66.3) Plan Of Treatment No Information Insurance Providers Payer Name Payer Address Payer Phone Subscriber Number Group Number Insured Name Patient Relationship to Insured Coverage Start Date Coverage End Date Freddy Clifton 5 digit Group Number [address] [place] [address] [id number] Merna López Self - patient is the insured 4 Medical (General) History Medical History History ICD Code right sided hip pain, sciatica alcohol use disorder insomnia Surgical History Surgery Date(Month/Year) [place] Hospitalization History Reason Date(Month/Year) see above
[2025-06-18 11:37] VITALS: BP 97/71; PULSE 79; TEMP 36.7; O2SAT 99; BMI 21.3
--- NOTE | 2025-06-18 13:08 | XR_ITS ---
The [address] [address] Patient Name: GERMAN JACOB MRN: [id number] date: 1990 Sex: F Assigned Patient Location: ER Current Patient Location: ER Accession/Order Number: [id number] Exam Date: 06/18/2025 13:19 Report Date: 06/18/2025 13:20 At the request of: HESHAM MARCUM MD Procedure: XR hand LT min 3V LEFT FOREARM - 2 views, left hand 3 views CLINICAL HISTORY: Abscess left forearm and hand for 2 days. COMPARISON: None FINDINGS: Left forearm: Soft tissue swelling is seen along the volar aspect of the midforearm. No radiopaque foreign body or soft tissue gas. No acute bony process is seen. Left hand: No focal soft tissue abnormality or acute bony process. Joint spaces appear maintained. XR/XR forearm LT 2V IMPRESSION: SOFT TISSUE SWELLING ALONG THE VOLAR ASPECT OF THE MIDFOREARM WITHOUT RADIO OPAQUE FOREIGN BODY. NO ACUTE BONY PROCESS IS SEEN INVOLVING THE LEFT FOREARM OR HAND. Impression dictated by: Jennifer Brown Jr.OAna 06/18/2025 1:20 PM Dictation Location: [place] [address] Electronically authenticated by: [id number] Y Date: 06/18/2025 13:20
--- NOTE | 2025-06-18 13:08 | XR_ITS ---
The [address] [address] Patient Name: GERMAN JACOB MRN: [id number] date: 1990 Sex: F Assigned Patient Location: ER Current Patient Location: ER Accession/Order Number: [id number] Exam Date: 06/18/2025 13:19 Report Date: 06/18/2025 13:20 At the request of: HESHAM MARCUM MD Procedure: XR hand LT min 3V LEFT FOREARM - 2 views, left hand 3 views CLINICAL HISTORY: Abscess left forearm and hand for 2 days. COMPARISON: None FINDINGS: Left forearm: Soft tissue swelling is seen along the volar aspect of the midforearm. No radiopaque foreign body or soft tissue gas. No acute bony process is seen. Left hand: No focal soft tissue abnormality or acute bony process. Joint spaces appear maintained. XR/XR hand LT min 3V IMPRESSION: SOFT TISSUE SWELLING ALONG THE VOLAR ASPECT OF THE MIDFOREARM WITHOUT RADIO OPAQUE FOREIGN BODY. NO ACUTE BONY PROCESS IS SEEN INVOLVING THE LEFT FOREARM OR HAND. Impression dictated by: Vadim Mabry Jr., DAnaOAna 06/18/2025 1:20 PM Dictation Location: [place] [address] Electronically authenticated by: [id number] Y Date: 06/18/2025 13:20
[2025-06-18] MEDS: PIPERACILLIN SODIUM/TAZOBACTAM 3.375 GM in 0.9 % SODIUM CHLORIDE 50 ML IV (13:21)
[2025-06-18 13:37] LABS: Hematocrit 34.4 % (36.0-48.0); Hemoglobin 11.6 g/dL (12.0-16.0); Immature Granulocytes Abs Auto 0.03 10^3/uL (0.00-0.03); Immature Granulocytes Pct Auto 0.4 % (0.0-0.5); Lymphocytes Absolute Auto 3.4 10^3/uL (1.2-3.8); Mean Corpuscular HGB Conc 33.7 g/dL (29.9-35.2); Mean Corpuscular Hemoglobin 32.5 pg (26.7-34.0); Mean Corpuscular Volume 96.4 fL (81.0-99.0); Platelet Count 135 10^3/uL (150-450); Red Blood Count 3.57 10^6/uL (4.20-5.40); White Blood Count 8.5 10^3/uL (4.0-11.0)
[2025-06-18 13:47] LABS: Anion Gap 11.9; Blood Urea Nitrogen 22.0 mg/dL (7.0-18.0); Calcium 9.0 mg/dL (8.5-10.1); Carbon Dioxide 29.3 mmol/L (21.0-32.0); Chloride 104 mmol/L (98-107); Creatine Kinase 239 U/L (26-192); Estimated GFR (African America >60 (>=60 mL/min/1.73m^2); Estimated GFR (Non-African Ame >60 (>=60 mL/min/1.73m^2); Glucose 91 mg/dL (74-106); Potassium 4.2 mmol/L (3.5-5.1); Sodium 141 mmol/L (136-145)
[2025-06-18] MEDS: VANCOMYCIN HCL 1,000 MG in 0.9 % SODIUM CHLORIDE 250 ML 250 MG IV (13:53)
--- NOTE | 2025-06-18 15:35 | ED.GENADUL1 ---
HPI HPI - General Adult General Chief complaint: Wound/Laceration Stated complaint: UPPER EXTREMITY WOUND Time Seen by Provider: 06/18/25 12:44 Source: patient Mode of arrival: walk-in Limitations: no limitations History of Present Illness HPI narrative: Patient is a 34-year-old female who is presenting to the ER with chief complaint abscess to her left forearm. Patient is a IV drug user. Patient states that she was injecting IV crack last week. Patient stated over this past weekend she tried to drain an abscess with a razor blade, and she only had blood come out of the area. She has a 6 x 5 cm firm indurated area to her left anterior forearm. Patient has multiple other areas of bruising and small abscesses and scars to her forearms, less than 1 cm. Patient has no petechiae purpura. She has no fever or chills. Patient does not believe she has any foreign bodies or needle stuck in her arms. No nausea or vomiting. Patient states she is not , she had a hysterectomy. All systems are negative except as noted/marked. All systems reviewed and otherwise negative. Nurses note and vital signs reviewed and patient is not hypoxic. General: The patient appears well and in no apparent distress. Patient is resting comfortably on cart. Patient is not toxic, lethargic, or listless Skin: Warm, dry, no pallor noted. There is no rash noted. No petechiae, purpura. Patient has a firm indurated 6 x 5 cm left forearm abscess that has been circled with a skin marker by Mitzy MOHAN. Patient has no areas of cellulitis, lymphangitis. No palpable foreign bodies. Patient has multiple areas of bruising to her bilateral forearms, history of old scars, small little boils/abscesses less than 1 cm on both arms. Patient's hands are neurovascularly intact. Head: Normocephalic, atraumatic Eye: Normal conjunctiva, no drainage, EOMI. PERRL Ears, Nose, Mouth, and Throat: oral mucosa is moist. Nares patent. Mouth without vesicles. Cardiovascular: Regular Rate and Rhythm, no murmur, gallop, rub Respiratory: Patient is in no distress, no accessory muscle use, lungs are clear to auscultation, no wheezing, rales or rhonchi Back: non-tender, no CVA tenderness bilaterally to percussion. No CT LS midline pain GI: no tenderness to palpation, no masses appreciated. No rebound, guarding, or rigidity noted. No distention Musculoskeletal: Patient has full range of motion of all of the extremities, no motor, sensory, or focal neurological deficits. Patient has no limitation of range of motion of her bilateral shoulders, elbows, wrists or hands. Neurological: A&O x4, normal speech Psychiatric: Cooperative, Patient is sleepy. Patient does not believe she is going through withdrawal. Related Data Home Medications ?Medication ?Instructions ?Recorded ?Confirmed clonidine HCl 0.1 mg tablet 0.1 mg PO Q8H PRN withdrawal 06/29/24 06/18/25 symptoms hydroxyzine HCl 50 mg tablet 50 mg PO BID PRN anxiety 06/29/24 06/18/25 naltrexone 50 mg tablet 100 mg PO Q24H 06/29/24 06/18/25 omeprazole 40 mg capsule,delayed 40 mg PO DAILY 06/29/24 06/18/25 release propranolol 10 mg tablet 10 mg PO Q12H PRN anxiety 06/29/24 06/18/25 valacyclovir 500 mg tablet 500 mg PO DAILY 06/29/24 06/18/25 Previous Rx's ?Medication ?Instructions ?Recorded acetaminophen 650 mg 650 mg PO Q8H PRN pain #20 tabs 06/29/24 tablet,extended release (Tylenol 8 Hour) gabapentin 800 mg tablet 800 mg PO TID 5 days #15 tabs 06/29/24 prednisone 20 mg tablet 20 mg PO DAILY 5 days #5 tabs 06/29/24 cephalexin 500 mg capsule 500 mg PO Q12H 10 days #40 caps 06/18/25 mupirocin 2 % topical ointment 1 applic topical TID 14 days #15 06/18/25 grams sulfamethoxazole 800 1 tab PO BID 10 days #20 tabs 06/18/25 mg-trimethoprim 160 mg tablet (Bactrim DS) Allergies Allergy/AdvReac Type Severity Reaction Status Date / Time No Known Drug Allergies Allergy Verified 06/18/25 11:40 Opioid HPI Opioid Management Most Recent Opioid Data: Last Pain Scale 7 Today, 12:30 PFSH PFSH Social History Little interest or pleasure in doing things: not at all Feeling down, depressed, or hopeless: not at all Exam Constitutional Vital Signs, click to edit/add: Last Vital Signs Temp 98.1 F 06/18/25 15:42 Pulse 78 06/18/25 15:42 Resp 18 06/18/25 15:42 BP 114/76 06/18/25 15:42 Pulse Ox 98 06/18/25 15:42 O2 Del Method Room Air 06/18/25 15:42 Course Vital Signs Vital signs: Vital Signs Temperature 98.1 F 06/18/25 11:37 Pulse Rate 79 06/18/25 11:37 Respiratory Rate 18 06/18/25 11:37 Blood Pressure 97/71 06/18/25 11:37 Pulse Oximetry 99 06/18/25 11:37 Oxygen Delivery Method Room Air 06/18/25 11:37 Temperature 98.1 F 06/18/25 15:42 Pulse Rate 78 06/18/25 15:42 Respiratory Rate 18 06/18/25 15:42 Blood Pressure 114/76 06/18/25 15:42 Pulse Oximetry 98 06/18/25 15:42 Oxygen Delivery Method Room Air 06/18/25 15:42 Medical Decision Making [facility] Narrative Medical decision making narrative: Patient seen and examined: Patient will have IV, labs, blood cultures, x-rays, and will be given vancomycin and Zosyn. Differential diagnosis includes but is not limited to: Abscess, foreign bodies, illicit drug addiction Diagnostics and management: Patient will have laboratory studies Relevant laboratory interpretation: Patient has no elevated white blood cells, 8.5. Patient CK is 239, BUN 22. Radiological studies: Please see the formal radiological report. X-ray shows no foreign bodies, no signs of osteomyelitis, or gas-forming products. Reevaluation: Patient does not feel any better or worse after IV fluids and IV antibiotics. Shared decision making: I discussed with the patient the necessary laboratory findings and radiological findings. Social barriers to healthcare: There are no food insecurities, there is no issue with transportation, there are no insurance barriers. Disposition: I discussed with the patient indications for incision and drainage of abscess. Patient has a firm indurated abscess to her left forearm. Patient attempted to drain her abscess this past weekend with a razor blade and only serosanguineous fluid came out. Patient is referred to a surgeon. She has no PCP. Patient was sent home with Keflex, Bactrim, Bactroban to place to the abscess. Patient is to come back if fever, chills, chest pain, shortness of breath. Patient has no endocarditis signs or symptoms at this time. Endocarditis, and continued IV drug use was discussed and educating patient that she is a significant risk of infection and if she continues IV drug use. Different rehab facilities and resources were discussed without money or insurance. No questions at discharge. Lab Data Labs: Lab Results 06/18/25 Range/Units 12:20 WBC 8.5 (4.0-11.0) 10^3/uL RBC 3.57 L (4.20-5.40) 10^6/uL Hgb 11.6 L (12.0-16.0) g/dL Hct 34.4 L (36.0-48.0) % MCV 96.4 (81.0-99.0) fL MCH 32.5 (26.7-34.0) pg MCHC 33.7 (29.9-35.2) g/dL RDW 12.9 (11.0-15.0) % Plt Count 135 L (150-450) 10^3/uL MPV 11.5 (9.5-13.5) fL Neut % (Auto) 42.4 L (43.0-75.0) % Lymph % (Auto) 40.4 (20.5-60.0) % Sawyer % (Auto) 14.5 H (1.7-12.0) % Eos % (Auto) 1.7 (0.9-7.0) % Baso % (Auto) 0.6 (0.2-2.0) % Neut # (Auto) 3.6 (1.4-6.5) 10^3/uL Lymph # (Auto) 3.4 (1.2-3.8) 10^3/uL Sawyer # (Auto) 1.2 H (0.3-0.8) 10^3/uL Eos # (Auto) 0.1 (0.0-0.7) 10^3/uL Baso # (Auto) 0.1 (0.0-0.1) 10^3/uL Abs Immat Gran (auto) 0.03 (0.00-0.03) 10^3/uL Imm/Tot Granulo (auto) 0.4 (0.0-0.5) % Sodium 141 (136-145) mmol/L Potassium 4.2 (3.5-5.1) mmol/L Chloride 104 (98-107) mmol/L Carbon Dioxide 29.3 (21.0-32.0) mmol/L Anion Gap 11.9 BUN 22.0 H (7.0-18.0) mg/dL Creatinine 0.85 (0.55-1.02) mg/dL Est GFR ( Amer) >60 (>=60 mL/min/1.73m^2) Est GFR (Non-Af Amer) >60 (>=60 mL/min/1.73m^2) BUN/Creatinine Ratio 25.9 Glucose 91 (74-106) mg/dL Calcium 9.0 (8.5-10.1) mg/dL Total Creatine Kinase 239 H (26-192) U/L Discharge Plan Discharge Chief Complaint: Wound/Laceration Clinical Impression: Abscess of forearm, left Patient Disposition: Home, Self-Care Time of Disposition Decision: 15:28 Condition: Fair Prescriptions / Home Meds: New sulfamethoxazole-trimethoprim [Bactrim DS] 800-160 mg tablet 1 tab PO BID 10 Days Qty: 20 0RF cephalexin 500 mg capsule 500 mg PO Q12H 10 Days Qty: 40 0RF mupirocin 2 % ointment 1 applic topical TID 14 Days Qty: 15 0RF No Action clonidine HCl 0.1 mg tablet 0.1 mg PO Q8H PRN (Reason: withdrawal symptoms) hydroxyzine HCl 50 mg tablet 50 mg PO BID PRN (Reason: anxiety) naltrexone 50 mg tablet 100 mg PO Q24H omeprazole 40 mg capsule,delayed release(DR/EC) 40 mg PO DAILY propranolol 10 mg tablet 10 mg PO Q12H PRN (Reason: anxiety) valacyclovir 500 mg tablet 500 mg PO DAILY prednisone 20 mg tablet 20 mg PO DAILY 5 Days Qty: 5 0RF acetaminophen [Tylenol 8 Hour] 650 mg tablet extended release 650 mg PO Q8H PRN (Reason: pain) Qty: 20 0RF gabapentin 800 mg tablet 800 mg PO TID 5 Days Qty: 15 0RF Print Language: Burkinan Instructions: Abscess (ED), Abscess Follow-up (ED) Additional Instructions: Start your antibiotics when you pick them up today. Take all of your antibiotic tablets and use the antibiotic ointment for the next 2 weeks. Referrals: Viral Samuels MD [Physician, General Surgery] - 1 week Joe Phan DO [Primary Care Provider] - 1 week Discharge Date/Time: 06/18/25 15:43
[2025-06-18 15:42] VITALS: BP 114/76; PULSE 78; TEMP 36.7; O2SAT 98
== END 2025-06-18 15:43 | disposition home or self-care (01) ==
PROVIDERS: Emergency Provider Emergency Medicine; PCP Family Medicine
DX: L02.414 Cutaneous abscess of left upper limb (principal); Z90.710 Acquired absence of both cervix and uterus; F14.90 Cocaine use, unspecified, uncomplicated
CPT/HCPCS: 36415; 73090; 73130; 80048; 82550; 85025; 96365; 96367; 99285; J2543; J3373

== ENCOUNTER 2025-09-15 05:40 | Emergency (ER) | payer OTHER, SELFPAY ==
--- OUTSIDE RECORDS SUMMARY | 2024-07-09 09:15 | XMS_ITS ---
Author Organization [facility] vices Address [address] [place], [place] [address] Care Team Providers Care Skiagrapher Name Role Phone Yudy Salmon Primary Care Provider [phone] REASON FOR VISIT 1 wk fu Rt hip pain/wrist pain Social History Sex Assigned At : Social History Observation Description Sex Assigned At Female Encounters Encounter Location Date Provider Diagnosis [address] [address] 07/09/2024 Yudy Salmon Plan Of Treatment No Information Progress Notes * Merna JACOBDOB: 1 (34 yo F)Acc No.[id number]:07/09/2024 Medical Note Patient: Merna BERNARD :?NIDIA FuentesOB:1990???Age:33 Y???Sex: FemaleDate:4Phone:[phone]:[address] [place], [place] Subjective: * Chief Complaints: * 1 . 1 wk fu Rt hip pain/wrist pain. * Medical History: Objective: * Vitals: Assessment: Plan: * Treatment: * Billing Information: * Visit Code: * Procedure Codes: * Electronic signature of Yudy Salmon MD on 09/15/2025 at 06:21 AM EDTSign off status: Pending * Provider: Svitlana Salmon MD Date: 07/09/2024 Generated for Printing/Faxing/eTransmitting on:?09/15/2025 06:21 AM EDT
--- OUTSIDE RECORDS SUMMARY | 2024-07-10 11:45 | XMS_ITS ---
Author Organization [facility] vices Address [address] [place] [id number] Care Team Providers Care Ground Transportation Operator Name Role Phone Yudy Salmon Primary Care Provider [phone] Richard Hopson [phone] REASON FOR VISIT 1 wk fu Rt hip pain/wrist pain Social History Sex Assigned At : Social History Observation Description Sex Assigned At Female Encounters Encounter Location Date Provider Diagnosis Main [address] [place] [id number] 07/10/2024 Richard Hopson Plan Of Treatment No Information Progress Notes * Merna JACOBDOB: 1 (34 yo F)Acc No.[id number]:07/10/2024 Medical Note Patient: Merna BERNARD :?SIMRAN Hernandez-CDOB:1990???Age:33 Y ???Sex:FemaleDate:07/10/2024hone:[phone]:[address], [place]Eyc:Yudy Salmon Subjective: * Chief Complaints: * 1 . 1 wk fu Rt hip pain/wrist pain. * Medical History: Objective: * Vitals: Assessment: Plan: * Treatment: * Billing Information: * Visit Code: * Procedure Codes: * Electronic signature of SIMRAN Hernandez on 09/15/2025 at 06:21 AM EDTSign off status: Pending * Provider: Kyree Hopson PA-C Date: 0 07/10/2024 Generated for Printing/Faxing/eTransmitting on:?09/15/2025 06:21 AM EDT
--- OUTSIDE RECORDS SUMMARY | 2024-07-31 09:45 | XMS_ITS ---
Author Organization [facility] vices Address [address] [place] [id number] Care Team Providers Care Photography Instructor Name Role Phone Yudy Salmon Primary Care Provider Beverly Tamez Unavailable [phone] REASON FOR VISIT Anxiety- needs meds refilled Social History Sex Assigned At : Social History Observation Description Sex Assigned At Female Encounters Encounter Location Date Provider Diagnosis Main [address] [place] [id number] 07/31/2024 Beverly Tamez Plan Of Treatment No Information Progress Notes * Merna JACOBDOB: 1 (34 yo F)Acc No.[id number]:07/31/2024 Medical Note Patient: Merna BERNARD :?Beverly TamzeDOB:1990???Age:33 Y???Sex: FemaleDate:07/31/2024hone:[phone]:[address], [place]D[id number]:Yudy Salmon Subjective: * Chief Complaints: * 1 . Anxiety- needs meds refilled. * Medical History: Objective: * Vitals: Assessment: Plan: * Treatment: * Billing Information: * Visit Code: * Procedure Codes: * Electronic signature of ADALBERTO Harris on 09/15/2025 at 06:20 AM EDTSign off status: Pending * Provider: Pascual Tamez Date: 0 07/31/2024 Generated for Printing/Faxing/eTransmitting on:?09/15/2025 06:20 AM EDT
--- OUTSIDE RECORDS SUMMARY | 2024-09-19 04:45 | XMS_ITS ---
Author Organization [facility] vices Address [address] [place], [place] [address] Care Team Providers Care Instructor Ground Services Name Role Phone Yudy Salmon Primary Care Provider Qian Mcbride Unavailable [phone] Allergies No Known Allergies REASON FOR VISIT Nerve issue, HTN Medication refill Medications Medication SIG (Take, Route, Frequency, Duration) Notes Start Date End Date Status cloNIDine HCl 0.1 MG take 1 tablet by [facility] three times a day if needed Oral; Duration: 30 Days ActiveGabapentin 800 MGTAKE 1 TABLET BY MOUTH Four TIMES DAILY Oral; Duration: 5 daysActivevalACYclovir HCl 500 MGtake 1 tablet by mouth once daily Oral as needed; Duration: 30 daysActiveOmeprazole 40 MG1 capsule 30 minutes before morning meal Oral Once a day; Duration: 30 daysActiveOndansetron 4 MGOral; Duration: 4 Daysas neededActivehydrOXYzine HCl 50 MGtake 1 tablet by mouth twice a day if needed Oral; Duration: 30 DaysActiveIbuprofentakes 800 mg as needed ActivePropranolol HCl 10 MG1 tablet Oral Two times a day, as needed; Duration: 30 daysActiveZolpidem Tartrate 10 MGtake 1 tablet by mouth at bedtime Oral; Duration: 15 DaysActive Social History Sex Assigned At : Social History Observation Description Sex Assigned At Female Encounters Encounter Location Date Provider Diagnosis Main [address] [place], [place] [id number] 09/19/2024 Qian Mcbride Plan Of Treatment No Information Progress Notes * Merna JACOBDOB: 1 (34 yo F)Acc No.[id number]:09/19/2024 Medical Note Patient: Merna BERNARD :Hanny Mcbride, MDDOB:1990???Age:33 Y???Sex: FemaleDate:09/19/2024hone:[phone]:[address], [id number]:Yudy Salmon Subjective: * Chief Complaints: * 1 . Nerve issue, HTN Medication refill. * Medical History: R ight sided hip pain, sciatica, Alcohol use disorder, Insomnia. * Surgical History: T onsills . * Hospitalization/Major Diagno stic Procedure: D enies Past Hospitalization. * Family History: F ather: unknown. M other: alive, Nerve issues, depression. P aternal Grand Father: unknown. P aternal Grand Mother: unknown. M aternal Grand Father: , diagnosed with Cancer. M aternal Grand Mother: , diagnosed with Cancer. B rother: alive. 1 brother(s) . . * Medications: T aking Ibuprofen , Notes to Pharmacist: takes 800 mg as needed, Taking hydrOXYzine HCl 50 MG Tablet take 1 tablet by mouth twice a day if needed Oral , Taking Zolpidem Tartrate 10 MG Tablet take 1 tablet by mouth at bedtime Oral , Taking valACYclovir HCl 500 MG Tablet take 1 tablet by mouth once daily Oral as needed , Taking Ondansetron 4 MG Tablet Disintegrating Oral , Notes to Pharmacist: as needed, Taking Omeprazole 40 MG Capsule Delayed Release 1 capsule 30 minutes before morning meal Oral Once a day , Taking Gabapentin 800 MG Tablet TAKE 1 TABLET BY MOUTH Four TIMES DAILY Oral , Taking cloNIDine HCl 0.1 MG Tablet take 1 tablet by mouth three times a day if needed Oral , Taking Propranolol HCl 10 MG Tablet 1 tablet Oral Two times a day, as needed * Allergies: N .K.D.A. Objective: * Vitals: * Examination: ???CQM Exceptions: ?Currently taking Aspirin:?Aspirin Use:?No??? Assessment: Plan: * Treatment: * Billing Information: * Visit Code: * Procedure Codes: * Electronic signature of Qian Mcbride MD on 09/15/2025 at 06:20 AM EDTSign off status: Pending * Provider: Tanya Mcbride MD Date: Generated for Printing/Faxing/eTransmitting on:?09/15/2025 06:20 AM EDT History and Physical Notes * Examination CategorySub-CategoryDetailNotesCategory NotesCQM ExceptionsCurrently taking Aspirin:Aspirin Use:: No
--- OUTSIDE RECORDS SUMMARY | 2024-09-23 09:00 | XMS_ITS ---
Author Organization [facility] vices Address [address] [place], [place] [phone] Care Team Providers Care Inspector Precision Name Role Phone Yudy Salmon Primary Care Provider Beverly Tamez Unavailable [phone] REASON FOR VISIT Wellness Social History Sex Assigned At : Social History Observation Description Sex Assigned At Female Encounters Encounter Location Date Provider Diagnosis [address] [id number] 09/23 Beverly Tamez Plan Of Treatment No Information Progress Notes * Merna JACOBDOB: 1 (34 yo F)Acc No.[id number]:09/23/2024 Medical Note Patient: Merna BERNARD :?Beverly TamezDOB:1990???Age:33 Y???Sex: FemaleDate:09/23/2024hone:[phone]:[address], [place]Gpx:Yudy Salmon Subjective: * Chief Complaints: * 1 . Wellness. * Medical History: Objective: * Vitals: Assessment: Plan: * Treatment: * Billing Information: * Visit Code: * Procedure Codes: * Electronic signature of ADALBERTO Harris on 09/15/2025 at 06:20 AM EDTSign off status: Pending * Provider: Pascual Tamez Date: 11/23/2023 Generated for Printing/Faxing/eTransmitting on:?09/15/2025 06:20 AM EDT
--- OUTSIDE RECORDS SUMMARY | 2024-09-23 11:15 | XMS_ITS ---
Author Organization [facility] vices Address [address] [facility] [id number] Care Team Providers Care Historiographer Name Role Phone Yudy Salmon Primary Care Provider Qian Mcbride [phone] Allergies No Known Allergies REASON FOR VISIT Wellness Medications Medication SIG (Take, Route, Frequency, Duration) Notes Start Date End Date Status Gabapentin 800 MG TAKE 1 TABLET BY CALVIN TH Four TIMES DAILY Oral; Duration: 5 days ActivePropranolol HCl 10 MG1 tablet Oral Two times a day, as needed; Duration: 30 daysActivecloNIDine HCl 0.1 MGtake 1 tablet by mouth three times a day if needed Oral; Duration: 30 DaysActivehydrOXYzine HCl 50 MGtake 1 tablet by mouth twice a day if needed Oral; Duration: 30 DaysActiveIbuprofentakes 800 mg as neededActiveOndansetron 4 MGOral; Duration: 4 Daysas neededActiveOmeprazole 40 MG1 capsule 30 minutes before morning meal Oral Once a day; Duration: 30 days ActivevalACYclovir HCl 500 MGtake 1 tablet by mouth once daily Oral as needed; Duration: 30 daysActiveZolpidem Tartrate 10 MGtake 1 tablet by mouth at bedtime Oral; Duration: 15 DaysActive Social History Sex Assigned At : Social History Observation Description Sex Assigned At Female Encounters Encounter Location Date Provider Diagnosis Main [address] [place] [id number] 09/23/2024 Qian Mcbride Plan Of Treatment No Information Progress Notes * Jacques JACOB: 1 (34 yo F)Acc No.[id number]:09/23/2024 Medical Note Patient: Merna BERNARD :?Qian Reed MDDOB:1990???Age:33 Y???Sex: FemaleDate:4Phone:[phone]:[address], [id number]:Yudy Salmon Subjective: * Chief Complaints: * 1 . Wellness. * Medical History: R ight sided hip pain, sciatica, Alcohol use disorder, Insomnia. * Surgical History: T onsills . * Hospitalization/Major Diagno stic Procedure: s ee above . * Family History: F ather: unknown. M [...] of Qian Mcbride MD on 09/15/2025 at 06:21 AM EDTSign off status: Pending * Provider: Tanya Mcbride MD Date: 11/23/2023 Generated for Printing/Faxing/eTransmitting on:?09/15/2025 06:21 AM EDT History and Physical Notes * Examination CategorySub-CategoryDetailNotesCategory NotesCQM ExceptionsCurrently taking Aspirin:Aspirin Use:: No
[2025-09-15 05:49] VITALS: BP 145/88; PULSE 122; TEMP 37.2; O2SAT 99; BMI 21.3
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
--- NOTE | 2025-09-15 06:21 | PC.NURSE ---
i informed this patient the plan of care : blood draw and urine sample. this patient declined this plan and want to leave. this patient did sign the AMA form and informed of the risk leaving AMA. this patient ambulated out of room 4 and out of the ER dept, and this patient's gait steady. this patient awake and alert and oriented x3 and shows no signs of distress
--- OUTSIDE RECORDS SUMMARY | 2025-09-15 06:21 | XMS_ITS | Patient Health Record ---
Author Organization [facility] vices Address [address] [place], [place] [id number] Care Team Providers Care Script Editor Name Role Phone Luis Antonio Yudy Primary Care Provider [phone] Beverly Tamez Unavailable [phone] Qian Mcbride Unavailable [phone] Allergies No Known Allergies Reason For Referral No Information Medications Medication SIG (Take, Route, Frequency, Duration) Notes Start Date End Date Status Ondansetron 4 MG Oral; Duration: 4 Days as needed ActiveGabapentin 800 MGTAKE 1 TABLET BY MOUTH Four TIMES DAILY Oral; Duration: 5 daysActiveOmeprazole 40 MG1 capsule 30 minutes before morning meal Oral Once a day; Duration: 30 daysActivePropranolol HCl 10 MG1 tablet Oral Two times a day, as needed; Duration: 30 daysActivecloNIDine HCl 0.1 MGtake 1 tablet by mouth three times a day if needed Oral; Duration: 30 DaysActivehydrOXYzine HCl 50 MG take 1 tablet by mouth twice a day if needed Oral; Duration: 30 DaysActive Ibuprofentakes 800 mg as neededActivevalACYclovir HCl 500 MGtake 1 tablet by mouth once daily Oral as needed; Duration: 30 daysActiveZolpidem Tartrate 10 MG take 1 tablet by mouth at bedtime Oral; Duration: 15 DaysActive Social History Tobacco Use: Social History Observation Description Date Details (start date - stop date) Current Smoker NA - NA Sex Assigned At : Social History Observation Description Sex Assigned At Female CAGE-AID Questionnaire (2018 Edition) Question Answer Notes Have you ever felt that you ought to cut down on your drinking or drug use? 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 Check all that apply Medicine or any health care (medical, dental, mental health or vision)Has lack of transportation kept you from medical appointments, meetings, work or from getting things needed for daily living?NoHow often do you see or talk to people that you care about and feel close to? (For example: talkingto friends on the phone, visiting friends or family, going to judaism or club meetings)More than 5 times a weekHow stressed are you? Stress is when someone feels tense, nervous, anxious, or can't sleep at nightbecause their mind is troubledA little bitIn the past year have you spent more than 2 nights in a row in a mcfp, fpc, senior care center, orjuvenile correctional facility?NoAre you a refugee?NoWhat country are you from?[place]Do you feel physically and emotionally safe where you currently live?YesIn the past year, have you been afraid of your partner or ex-partner?NoPRAPARE Score:3Tobacco Control (Standard) Question Answer Notes Tobacco use: Current every day smoker Additional Findings: Tobacco userModerate cigarette smoker (10-19 cigs/day) Problems Problem Type SNOMED Code ICD Code Onset Dates Problem Status W/U Status Risk Notes Problem Alcohol abuse (97539839) Alcohol abuse (F 10.10) Activeconfirmed -per pt went through rehab at [facility] for a year -last Opioid / Alcohol use about 2, 3 weeks ago -taking Naltrexone PRN, discussed and referred to Margo Phillips for evaluation and appropriate therapy ProblemOpioid abuse (7755795)Opiate abuse, episodic (F11.10)Activeconfirmed -per pt went through rehab at [facility] for a year -last Opioid / Alcohol use about 2, 3 weeks ago -taking Naltrexone PRN, discussed and referred to Margo Phillips for evaluation and appropriate therapy Plan Of Treatment No Information Insurance Providers Payer Name Payer Address Payer Phone Subscriber Number Group Number Insured Name Patient Relationship to Insured Coverage Start Date Coverage End Date Freddy Clifton 5 digit Group Number [address] [place] [address] [id number] Merna López Self - patient is the insured 4 Medical (General) History Medical History History ICD Code right sided hip pain, sciatica alcohol use disorderinsomniaSurgical History Surgery Date(Month/Year) [facility] Hospitalization History Reason Date(Month/Year) see above
--- OUTSIDE RECORDS SUMMARY | 2025-09-15 06:22 | XMS_ITS | CCD ---
Author Organization [facility] CliniSywy Care Team Providers Care [employer] Programmer Name Role Phone STEENHOFF, KORI Attending Unavailable STEENHOFF, KORI Admitting Unavailable SELF, REFERRED Referring Unavailable SELF, REFERRED Primary Care Unavailable Unavailable Primary Care Provider Unavailcathie e Unavailable Primary Care Provider UnavailCHASE River Attending Unavailable SEGUNDO SOTO Admitting Unavailable RENNY GONSALES I Attending Unavailable LEYLA VORA Consulting Unavailable DENISA TORRES Consulting Unavailable JEAN PAUL MCCLURE Referring Unavailable STEENHOFF, KORI Attending Unavailable STEENHOFF, [...] FAMILY, PHYSICIAN Primary Care Provider Unava ilable Keister, DO Chase A Emergency Provider [phone] MD Mike Verduzco Admit Provider MD Mike Verduzco Attending Provider [phone] MD Rolo Perez Other Provider MD Chidi Rick Attending Provider MD Leyla Emerson Other Provider MD Vadim Banda Other Provider SAMY Fabian Other Provider DO Steven June Jr Other Provider MD Macho Adan Other Provider MD Renny Multani Other Provider [facility] Attending Unavaila ble Sylvester DO, Kori Primary Care Unavailable [facility] Unavailable Unavaila ble NO FAMILY, PHYSICIAN Primary Care Unavailable Rolo Perez Consulting Unavailable Chidi Rick Attending Unavailable Mike Verduzco Admitting Unavailab Leyla Iraheta Consulting Unavailable Vadim Banda Consulting Unavailable Gerri Fabian Consulting Unavailable Steven June Jr Consulting Unavailabl Macho Mckeon Consulting Unavaila ble Renny Multani Consulting Unavaila ble Medications Current Medications MedicationDrug Class(es)DatesSig (Normalized)Sig (Original)acamprosate calcium 333 mg delayed release oral tablet (3 sources)Start: 31-21-3951tlso 1 tablet by mouth twice dailyacamprosate (CAMPRAL) 333 MG tablet Take 333 mg by mouth 2 times daily 0 11/07/2022 Active Acetaminophen (2 sources)Start: 87-08-9823fuahzhymxlutd (TYLENOL) tablet 650 mgPain Relief Extra Strength 500 MG Oral for 7 Days Activeamoxicillin 500 mg oral capsule (1 source)Penicillin-class AntibacterialStart: 27-71-6633iukk 1 capsule by mouth every eight hoursAmoxicillin 500 MG 1 capsule Orally three times a day for 10 day(s) Feb, Activebuprenorphine 8 mg / naloxone 2 mg sublingual tablet (4 sources)Partial Opioid Agonist, Opioid AntagonistStart: 01-13-2023 buprenorphine-naloxone (SUBOXONE) 8-2 MG SL tablet 2 tabletBuprenorphine HCl- Naloxone HCl 8-2 MG dissolve 1 FILM under the tongue three times a day Sublingualfor 14 Days Activebuprenorphine-naloxone (SUBOXONE) 8-2 MG SUBL [address] tablet Place 1 tablet under the tongue 3 times daily. 0 Activecholecalciferol 1.25 mg oral capsule (1 source)Vitamin DStart: 12-23-2022 End: 46-82-6548dsts 1 capsule by mouth every weekvitamin D (CHOLECALCIFEROL) 49644 UNIT CAPS Take 50,000 Units by mouth once a week 0 12/23/2022 01/21/2023 ActivecloNIDine hydrochloride 0.1 mg oral tablet (6 sources)Central alpha-2 Adrenergic AgonistStart: 84-83-8435yopb 1 tablet by mouth once daily at bedtimeClonidine Hcl Active 0.1 MG PO Daily at bedtime August 17, 2024 12:00am FreeTextSig: Oral; Note: Source Status: Taking; Qty: 14 Tablet; Provider: Anastasiya Jones ( )Start: 01-13-2023 End: 43-23-7124xrnBDRkra (CATAPRES) 0.1 MG/24HR 1 patchStart: 87-01-0404vuau 1 tablet by mouth three times dailycloNIDine (CATAPRES) 0.1 MG tablet Take 0.1 mg by mouth 3 times daily 0 01/03/2023 Activefolic acid 1 mg oral tablet (4 sources)Start: 94-91-3720yryi 1 tablet by mouth once dailyfolic acid (FOLVITE) 1 MG tablet Take 1 tablet by mouth daily 30 tablet 3 01/14/2023 Active gabapentin 800 mg oral tablet (6 sources)Anti-epileptic AgentStart: 91-01-7561razb 1 tablet by mouth three times dailyGabapentin Active 800 MG PO Three times daily 90 August 20, 2024 6:31pm FreeTextSig: Oral; Note: Source Status: Taking; Qty: 42 Tablet; Provider: Anastasiya Jones ( )Start: 08-17-2024 End: 85-78-3625ppje 1 tablet by mouth four times dailyGabapentin Discontinued 800 MG PO Four times daily August 17, 2024 12:00am August 20, 2024 6:32pm FreeTextSig: Oral; Note: Source Status: Taking; Qty: 42 Tablet; Provider: Anastasiya Jones ( )Start: 57-87-2320bkbrkmiakh (NEURONTIN) capsule 400 mgStart: 22-31-4218oejy 1 tablet by mouth three times dailygabapentin (NEURONTIN) 800 MG tablet Take 800 mg by mouth 3 times daily. 0 01/03/2023 ActivehydrOXYzine hydrochloride 50 mg oral tablet (5 sources)AntihistamineStart: 37-32-2152lqpb 50 mg by mouth four times daily Hydroxyzine Hcl Active 50 MG PO Four times daily August 17, 2024 12:00am Start: 25-60-0063nzjm 1 tablet by mouth twice dailyhydrOXYzine HCl (ATARAX) 50 MG tablet Take 50 mg by mouth 2 times daily 0 11/24/2022 ActivehydrOXYzine HCl 25 MG Oral for 3 Days Activeibuprofen 800 mg oral tablet (1 source)Nonsteroidal Anti-inflammatory DrugIbuprofen 800 MG Oral for 30 Days Activenicotine 4 mg inhalation solution (3 sources)Cholinergic Nicotinic AgonistStart: 01-16-2023 End: 39-67-0903wucooyne (NICOTROL) 10 MG inhaler Inhale 1 puff into the lungs as needed for Smoking cessation 1 each 3 01/16/2023 02/15/2023 ActiveStart: 18-23-9220cteyiavr (NICOTROL) inhaler 1 puff (Patient Supplied)omeprazole 40 mg delayed release oral capsule (4 sources)Proton Pump InhibitorStart: 93-35-5055xvay 1 capsule by mouth once dailyOmeprazole Active 40 MG PO Daily August 17, 2024 12:00am FreeTextSig: Oral; Note: Source Status: Taking; Qty: 30 Capsule; Provider: Anastasiya Jones ( )Omeprazole 40 MG Oral for 30 Days Activeondansetron 4 mg oral tablet (5 sources)Serotonin-3 Receptor AntagonistStart: 96-91-4726jbdg 4 mg by mouth twice dailyOndansetron Hcl Active 4 MG PO Twice daily August 17, 2024 12:00amStart: 01-12-2023 End: 57-22-0253ztkcrcjefjw (ZOFRAN) injection 4 mgStart: 09-21-2022 End: 22-41-7809cqlkhcmubny (ZOFRAN) injection 4 mgtake 1 tablet by mouth four times daily for nauseaOndansetron 4 MG dissolve 1 tablet ON TONGUE four times a day if needed for nausea OR vomiting Oralfor 3 Days Activeondansetron (ZOFRAN- ODT) disintegrating tablet 4 mg (1 source)Start: 88-50-3298xgqgijupehw (ZOFRAN-ODT) disintegrating tablet 4 mg PHENobarbital 65 mg/ml injectable solution (2 sources)Start: 01-15-2023 End: 63-37-5705ETSNvxkstwjbn (LUMINAL) injection 16.2 mgStart: 01-12-2023 End: 14-07-7818NKLVeimakelkl (LUMINAL) injection 260 mgPotassium Chloride (1 source)Start: 13-16-2979okkpshqrm chloride (KLOR-CON M) extended release tablet 40 mEqpredniSONE 20 mg oral tablet (1 source)Start: 26-26-8037qphx 1 tablet by mouth every twelve hourspredniSONE 20 MG 1 tablet Orally bid for 5 day(s) Feb, Activepropranolol hydrochloride 10 mg oral tablet (4 sources)beta-Adrenergic BlockerStart: 13-77-7595yavg 1 tablet by mouth twice dailyPropranolol Active 10 MG PO Three times daily August 17, 2024 12:00am FreeTextSig: take 1 tablet by mouth twice a day if needed for 30 DAYS Oral; Note: Source Status: Taking; Refills: 0; Qty: 60Each; Provider: EMELY REWAStart: 03-22-0735uotu 1 tablet by mouth twice dailypropranolol (INDERAL) 10 MG tablet Take 10 mg by mouth 2 times daily 0 01/03/2023 ActiveSenna Leaves (1 source)take 1 tablet by mouth once daily at bedtimeRA Senna 8.6 MG take 1 tablet by mouth every morning and BEFORE BEDTIME Oral for 30 Days Activethiamine 100 mg oral tablet (4 sources)Start: 47-75-7039zfhe 1 tablet by mouth once dailythiamine 100 MG tablet Take 1 tablet by mouth daily 30 tablet 3 01/14/2023 Activezolpidem tartrate 10 mg oral tablet (1 source)gamma-Aminobutyric Acid-ergic AgonistStart: 60-05-6455xjtg 10 mg by mouth once daily at bedtimeZolpidem Active 10 MG PO Daily at bedtime August 17, 2024 12:00am Completed/Discontinued Medications MedicationDrug Class(es)DatesSig (Normalized)Sig (Original)calcium chloride 0.0014 meq/ml / potassium chloride 0.004 meq/ml / sodium chloride 0.103 meq/ml / sodium lactate 0.028 meq/ml injectable solution (2 sources)Start: 01-13-2023 End: 81-93-1466myhkttuw ringers IV soln infusionStart: 09-21-2022 End: 07-35-1965lticlpfc ringers bolus50 ml calcium gluconate 20 mg/ml injection (1 source)Start: 01-13-2023 End: 38-54-1417oxczkha gluconate 1,000 mg in sodium chloride 50 mL0.4 ml enoxaparin sodium 100 mg/ml prefilled syringe (1 source)Low Molecular Weight HeparinStart: 75-06-8535prcaji 40 mg by subcutaneous injection once daily40 mg, SubCUTAneous, DAILY, First dose on Mon01/13/23 at 0900, Until Discontinued Indication of Use: Prophylaxis-DVT/PE Administer by deep subCUTAneous injection with pt lying down. Alternate injectio n sites on abdominal wall. Do not rub site after injection. Check with MD prior to any invasive procedure.folic acid 1 mg, thiamine (B-1) 100 mg in sodium chloride 0.9 % 50 mL IVPB (1 source)Start: 01-12-2023 End: 58-52-4321ulekj acid 1 mg, thiamine (B-1) 100 mg in sodium chloride 0.9 % 50 mL RTDT2254 ml glucose 500 mg/ml injection (1 source)Start: 01-12-2023 End: 09-99-0105npyazsbv 50 % IV solutionLORazepam 0.5 mg oral tablet (1 source)BenzodiazepineStart: 09-21-2022 End: 09-43-5228SDEtyvdcw (ATIVAN) tablet 1 mgStart: 09-21-2022 End: 78-98-4768ROZjlzkym (ATIVAN) tablet 1 mg50 ml magnesium sulfate 40 mg/ml injection (1 source)Start: 01-12-2023 End: 48-47-2182oepurrzxx sulfate 2000 mg in 50 mL IVPB premixmelatonin 10 mg extended release oral tablet (1 source)Melatonin 10 MG Oral for 30 Days Not-Taking2 ml midazolam 1 mg/ml injection (1 source)BenzodiazepineStart: 09-21-2022 End: 08-89-0446belelevcu PF (VERSED) injection 2 mgpantoprazole 40 mg delayed release oral tablet (1 source)Proton Pump InhibitorStart: 62-62-1882hqsp 40 mg by mouth once daily before ekkuwyiwd85 mg, Oral, DAILY BEFORE BREAKFAST, First dose on Mon01/14/23 at 0700, Until Discontinued Do not crush or break. Substituted for Omeprazole (PRILOSEC).polyethylene glycol 3350 06902 mg powder for oral solution (2 sources)Osmotic LaxativeStart: 99-60-032103 g, Oral, DAILY PRN, Starting on Mon01/13/23 at 0013, Until Discontinued, Constipation First linetherapy for constipation2 ml prochlorperazine 5 mg/ml injection (1 source)PhenothiazineStart: 01-16-2023 End: 43-33-7741qommhegbdivhdmol (COMPAZINE) injection 10 mgStart: 01-16-2023 End: 39-38-2957olpickyjyeqfdrpq (COMPAZINE) injection 10 mg5 ml sodium chloride 9 mg/ml injection (6 sources)Start: 13-79-8981lgzn 1 dose intravenously twice daily5-40 mL, IntraVENous, EVERY 12 HOURS SCHEDULED (2 [...] mL Midline or Central Line = 20 mL/lumenStart: 01-13-2023 End: 55-89-8156WwhwhKORwem, at 125 mL/hr, CONTINUOUS, Starting on Mon01/13/23 at 0030Start: 17-85-6177FcrjkXACypa, at 5-250 mL/hr, PRN, if patient receiving piggyback infusions and maintenance fluids are not ordered OR KVO fluids to protect IV site / prevent frequent line interruptions/ long duration, Starting on Mon01/13/23 at 0013 For piggyback infusion, administer at same rate as piggyback for atotal of 25 mL. Enter 25 mL into dose field and piggyback rate into rate field of order. If piggyback is infusing at a rate less than 100 mL/hr, enter 25 mL into dose field and 100 mL/hr into rate field of order. For KVO fluids, enter rate of 20 mL/hr or less into rate field of order.Start: 37-51-6420fzdj 10 mL intravenously once as dtmhoh48 mL, IntraVENous, PRN, Starting on Mon01/13/23 at 0013, Until Discontinued, Line Care, After every IV line useStart: 01-12-2023 End: .9 % sodium chloride bolustiZANidine 2 mg oral tablet (1 source)Central alpha-2 Adrenergic AgonisttiZANidine HCl 2 MG Oral for 6 Days Not-TakingtraZODone hydrochloride 100 mg oral tablet (1 source)Serotonin Reuptake InhibitortraZODone HCl 100 MG Oral for 30 Days Not-Taking Problems Active Problems Problem ClassificationProblemDateDocumented DateEpisodic/ChronicAlcohol-related disorders (9 sources)Alcohol withdrawal syndrome; Translations: [Alcohol withdrawal syndrome with complication]Onset: 764744-19-7039GiojtvoCnzdjyu-puadrwa disorders (3 sources)Alcohol intoxication delirium ; Translations: [Alcohol use, unspecified with intoxication delirium]Onset: 76-30-1147SceaxfffKubdelbfu infection; unspecified site (1 source)Other specified bacterial agents as the cause of diseases classified elsewhereEpisodicCoagulation and hemorrhagic disorders (3 sources)Thrombocytopenic disorder; Translations: [Thrombocytopenia, unspecified]Onset: 323344-09-6278TunhdpaSloxrvyjhd and other anemia (1 source)Anemia; Translations: [Anemia, unspecified]24-16-1677MpeablmaHmewvwre, dementia, and amnestic and other cognitive disorders (4 sources)Delirium; Translations: [Delirium due to known physiological condition]51-88-6997CulftgzJgxhsnxj; convulsions (5 sources)Seizure; Translations: [Unspecified convulsions]Onset: 01-12-2023 EpisodicMiscellaneous mental health disorders (2 sources)Primary insomnia; Translations: [Primary insomnia]Onset: 05-04-2023 ChronicNausea and vomiting (3 sources)Nausea and vomiting; Translations: [Nausea with vomiting, unspecified]Onset: 68-67-5661FhfywnywUvcgn circulatory disease (3 sources)Low blood pressure; Translations: [Hypotension, unspecified]Onset: 98-60-7821YndtcdqqAgwah endocrine disorders (3 sources)Hypoglycemia; Translations: [Hypoglycemia, unspecified]Onset: 78-55-2366BfqekfjOhbzp hematologic conditions (3 sources)Macrocytosis; Translations: [Other specified diseases of blood and blood-forming organs]Onset: 22-74-1967DjhrsozRvawt liver diseases (2 sources)Liver disease, unspecified; Translations: [Liver disease, unspecified]Onset: 54-27-2665EdwqqtxTdfbn liver diseases (3 sources)Jaundice; Translations: [Unspecified jaundice]Onset: 01-13-2023 EpisodicOther liver diseases (2 sources)Abnormal levels of other serum enzymes; Translations: [Abnormal levels of other serum enzymes]Onset: 82-90-2042TayyesdmGuqpr nutritional; endocrine; and metabolic disorders (1 source)Hypophosphatemia; Translations: [Other disorders of phosphorus metabolism]87-28-3225KseyimmVbwzh nutritional; endocrine; and metabolic disorders (1 source)Hypomagnesemia; Translations: [Hypomagnesemia]42-97-4346RzfjiorFkrfy nutritional; endocrine; and metabolic disorders (2 sources)Hypomagnesemia; Translations: [Disorders of magnesium metabolism] Onset: 062602-64-2200LfgywwjReohg nutritional; endocrine; and metabolic disorders (2 sources)Other disorders of phosphorus metabolism; 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]Onset: 267056-94-2581TkfalngOtvhk upper respiratory infections (2 sources)Acute pharyngitis, unspecified; Translations: [Acute pharyngitis due to other specified organisms]EpisodicResidual codes; unclassified (1 source)Current drinker; Translations: [Other specified health status]Episodic Residual codes; unclassified (2 sources)Altered mental status; Translations: [Altered mental status, unspecified]68-92-1877YyqgsvpuGjbekdoec-related disorders (5 sources)Combined opioid with other drug dependence; Translations: [Opioid dependence, uncomplicated]Onset: 60-88-8282DxkweitYlxhxossndkv (1 source)Alcohol use, unspecified with withdrawal, uncomplicated; Translations: [Alcohol use, unspecified with withdrawal, uncomplicated]Onset: 01-12-2023 Unclassified (2 sources)Withdrawal; Translations: [Withdrawal]Onset: 73-05-8887Rsgwjinsucte (2 sources)Suicidal; Translations: [Suicidal]Onset: 09-28-2022 Past or Other Problems Problem ClassificationProblemDateDocumented DateEpisodic/ChronicAcute and unspecified renal failure (4 sources)Acute renal failure syndrome; Translations: [Acute kidney failure, unspecified]Onset: 088824-58-3427MaejhfegBtgjrvnqwhoirs/social admission (3 sources)Other reduced mobility; Translations: [Impaired mobility and activities of daily living]Onset: 568682-42-8207QghudoinFhvqcjayji pneumonitis; food/vomitus (3 sources)Aspiration pneumonia; Translations: [Pneumonitis due to inhalation of food and vomit]Onset: 033998-98-0404RtygqigfAyco; stupor; and brain damage (2 sources)Somnolence; Translations: [Somnolence]Onset: 46-25-7434Znpymiiu Deficiency and other anemia (2 sources)Anemia, unspecified; Translations: [Anemia, unspecified]Onset: 750655-74-1278QxqoywqsFnxvl and electrolyte disorders (6 sources)Metabolic acidosis, increased anion gap (IAG); Translations: [High anion gap metabolic acidosis]Onset: 92-30-4534LowcgyqjQvijt circulatory disease (1 source)Hypotension, unspecified; Translations: [Hypotension, unspecified] Onset: 31-92-1437LfnzrwdzKiewlfcjn (except that caused by tuberculosis or sexually transmitted disease) (5 sources)Pneumonia; Translations: [Pneumonia, unspecified organism]Onset: 151085-98-1494SxbhzmvxIqfvnfry codes; unclassified (2 sources)Other specified health status; Translations: [Other specified health status]Onset: 31-24-6051PrrkkjzrQiebtopu codes; unclassified (3 sources)Altered mental status, unspecified; Translations: [Altered mental status]Onset: 107753-61-9455DqxmacawGsnysxmzett failure; insufficiency; arrest (adult) (5 sources)Acute hypoxemic respiratory failure; Translations: [Acute respiratory failure with hypoxia]Onset: 341279-74-6013JioagpcwBtwuiimjrc (except in labor) (7 sources)Sepsis; Translations: [Sepsis, unspecified organism]Onset: 08-12-2024 41-00-9982IfptcgukBekyt (1 source)Severe sepsis with septic shock; Translations: [Severe sepsis with septic shock]Onset: 89-09-4798RurjkjfwEshpnpsmk-related disorders (2 sources)Heroin overdose; Translations: [Poisoning by heroin, undetermined, initial encounter]Onset: 95-93-8829PnuejeemQlsgndu tract infections (3 sources)Urinary tract infectious disease; Translations: [Urinary tract infection, site not specified]Onset: 609041-72-1228Qabjlram Results Test NameValueInterpretationReference RangeFacilityAlbumin [Mass/volume] in Serum or Plasma by Bromocresol green (BCG) dye binding methoOrdered By: Rolo Perez on 29-23-5534Vjipgoz BCG dye [Mass/Vol]2.9 g/dLLow3.5-5.7FGlenbeigh HospitalBasophils Auto (Bld) [#/Vol]Ordered By: Dianne Bret on 82-40-0163Arlmkutal (Bld) [#/Vol]0.1 10*3/uL0.0-0.2FGlenbeigh HospitalBasophils/100 WBC Auto (Bld)Ordered By: Dianne Bret on 08-20-2024 Basophils/100 WBC (Bld)0.9 %.[facility] HospitalCalcium [Mass/volume] in Serum or PlasmaOrdered By: Rolo Chris on 82-14-5413Lozxnud [Mass/Vol]7.8 mg/dLLow8.6-10.3FGlenbeigh HospitalCarbon dioxide, total [Moles/volume] in Serum or PlasmaOrdered By: Rolo Chris on 27-37-7005WO4 [Moles/Vol]24.2 mmol/L21.0-31.0[facility] HospitalChloride [Moles/volume] in Serum or PlasmaOrdered By: Rolo Chris on 13-42-5313Agieoetp [Moles/Vol]108 mmol/ZIdwa66-300EmwrqlshaKettering Memorial HospitalCreatinine [Mass/volume] in Serum or PlasmaOrdered By: Rolo Chris on 63-57-9368Xtcivztrdg [Mass/Vol]1.64 mg/dLHigh0.60-1.20[facility] HospitalEosinophils Auto (Bld) [#/Vol]Ordered By: Dianne Bret on 70-93-2831Xskwhpjghwl (Bld) [#/Vol] 0.2 10*3/uL0.0-0.45[facility] HospitalEosinophils/100 WBC Auto (Bld)Ordered By: Dianne Bret on 27-42-3781Seiwlhzwgwu/100 WBC (Bld)2.6 %. [facility] HospitalErythrocyte distribution width Auto (RBC) [Ratio]Ordered By: Dianne Bret on 57-14-4625Gcvhbyevatd distribution width (RBC) [Ratio]16.1 %High11.9-15.3FGlenbeigh HospitalGlucose [Mass/volume] in Serum or PlasmaOrdered By: Rolo Chris on 01-40-9873Vksgxbb [Mass/Vol]87 mg/qK85-787XunwrlkpeKettering Memorial HospitalComment on above:ADA recommended reference rangeRandom Glucose Reference Range is dependent on time and content of last meal. Glucose of more than 200 mg/dL in a nonstressed, ambulatory subject supports the diagnosisof Diabetes Mellitus.Hematocrit Auto (Bld) [Volume fraction]Ordered By: Dianne Queen on 29-42-9709Koipqhpxgj (Bld) [Volume fraction] 30.4 %Low34.0-46.4FGlenbeigh HospitalHemoglobin [Mass/volume] in BloodOrdered By: Dianne Queen on 30-65-7157Xhdqlllkte (Bld) [Mass/Vol]10.3 g/dLLow 11.8-15.4FGlenbeigh HospitalLeukocytes [#/volume] corrected for nucleated erythrocytes in Blood by Automated counOrdered By: Dianne Queen on 88-11-7312DSV corrected for nucl RBC Auto (Bld) [#/Vol]7.7 10*3/uL3.8-11.6 [facility] HospitalLymphocytes Auto (Bld) [#/Vol]Ordered By: Dianne Queen on 46-54-4977Kqtpoknlgln (Bld) [#/Vol]2.8 10*3/uL1.00-4.8[facility] HospitalLymphocytes/100 WBC Auto (Bld)Ordered By: Dianne Queen on 43-69-2567Yokwqculdnd/100 WBC (Bld)36.4 %.[facility]H Auto (RBC) [Entitic mass]Ordered By: Dianne Queen on 82-70-4849HVA (RBC) [Entitic mass]32.9 pg24.7-34.3FGlenbeigh HospitalMCHC Auto (RBC) [Mass/Vol] Ordered By: Dianne Queen on 78-50-4060QMUZ (RBC) [Mass/Vol]34.0 g/dL32.0-35.0 [facility] HospitalMCV Auto (RBC) [Entitic vol]Ordered By: Dianne Queen on 96-35-1983QXQ (RBC) [Entitic vol]96.7 pC09-072UwnyemephKettering Memorial HospitalMonocytes Auto (Bld) [#/Vol]Ordered By: Dianne Queen on 85-90-6184Acnfsgxua (Bld) [#/Vol]0.9 10*3/uLHigh0.0-0.8[facility] Monocytes/100 WBC Auto (Bld)Ordered By: Dianne Queen on 41-24-9733Gwynswuhe/100 WBC (Bld)11.9 %.[facility] HospitalNeutrophils Auto (Bld) [#/Vol] Ordered By: Dianne Queen on 74-01-0055Whiyodagscg (Bld) [#/Vol]3.7 10*3/uL1.8-7.7 [facility] HospitalNeutrophils/100 WBC Auto (Bld)Ordered By: Dianne Queen on 28-68-3331Paqmwhruljg/100 WBC (Bld)48.2 %.[facility] HospitalNo Panel InformationOrdered By: Rolo Perez on 85-06-6716Ygxeojvco GFR (CKD-EPI)42.398 mL/MinKettering Memorial HospitalPharmacy Creatinine Clearance (Chem59.04[facility] HospitalNucleated erythrocytes [Presence] in Blood by Automated countOrdered By: Dianne Queen on 08-20-2024 Nucleated RBC Auto Ql (Bld)0.1 /100{WBC}0-0.5FGlenbeigh Hospital Phosphate [Mass/volume] in Serum or PlasmaOrdered By: Rolo Perez on 08-20-2024 Phosphate [Mass/Vol]3.6 mg/dL2.5-4.5FGlenbeigh HospitalPlatelet mean volume Auto (Bld) [Entitic vol]Ordered By: Dianne Queen on 88-62-3589Farcarnu mean volume (Bld) [Entitic vol]8.0 fL6.3-10.7FGlenbeigh Hospital Platelets Auto (Bld) [#/Vol]Ordered By: Dianne Queen on 27-82-4037Pxyjghwjt (Bld) [#/Vol]177 10*3/qD002-774BxwxngvtmKettering Memorial HospitalPotassium [Moles/volume] in Serum or PlasmaOrdered By: Rolo Perez on 85-64-5624Ccfkhvbad [Moles/Vol]3.2 mmol/LLow3.5-5.1FGlenbeigh HospitalRBC Auto (Bld) [#/Vol]Ordered By: Dianne Queen on 86-90-1724NZK (Bld) [#/Vol]3.14 10*6/uLLow 3.60-5.00[facility]. [facility] Hospitalerum or plasma anion gap determinationOrdered By: Rolo Perez on 41-83-0070Fbzyv gap [Moles/Vol]12.0 mmol/L6.0-15.0[facility]. [facility] Hospitalodium [Moles/volume] in Serum or PlasmaOrdered By: Rolo Perez on 54-19-5721Hacqjd [Moles/Vol]141 mmol/W344-379 [facility] HospitalUrea nitrogen [Mass/volume] in Serum or Plasma Ordered By: Rolo Perez on 30-89-9487Qkrj nitrogen [Mass/Vol]25 mg/dL7-25 [facility] HospitalWBC Auto (Bld) [#/Vol]Ordered By: Dianne Queen on 38-02-2834DUU (Bld) [#/Vol]7.7 10*3/uL3.8-11.6FGlenbeigh Hospital Magnesium [Mass/volume] in Serum or PlasmaOrdered By: Rolo Perez on 08-18-2024 Magnesium [Mass/Vol]1.9 mg/dL1.9-2.7FGlenbeigh Hospital Triglyceride [Mass/volume] in Serum or PlasmaOrdered By: Chase Packer on 43-99-6349Yendxshnocyu [Mass/Vol]134 mg/rE74-635WostqyokfKettering Memorial HospitalComment on above:TRIG ATP III CLASSIFICATIONTRIG less than 150 mg/dL NormalTRIG 150-199 mg/dL Borderline highTRIG 200-500 mg/dL High TRIG greater than 500 mg/dL Very highStandard traceable to the Center for Disease Conrtrol and Prevention (CDC) test method.Glucose Glucometer (dC) [Mass/Vol]Ordered By: Mike Verduzco on 49-22-4607Bqxmrea [Mass/Vol]98 mg/dLKettering Memorial HospitalComment on above:Random Glucose Reference Range is dependent on time and content of last meal. Glucose of more than 200 mg/dL in a nonstressed, ambulatory subject supports the diagnosis of Diabetes Mellitus.Laboratory - Chemistry and Chemistry - challengeOrdered By: NO PHYSICIAN on 22-27-0046ZG7 [Moles/Vol]25.1 mmol/L23.0-27.0[facility] HospitalHCO3 (Bld) [Moles/Vol]24.0 mmol/L23.0-29.0[facility] HospitalNo Panel InformationOrdered By: NO PHYSICIAN on 52-29-1103Ccllshgf Blood Base Excess-0.1 mmol/L-3.0-3.0[facility] HospitalArterial Blood Oxygen Content6.4 mmol/LLow6.6-9.7FGlenbeigh HospitalArterial Blood Oxygen Xfdbzigdtl84.3 %95.0-100.0[facility] HospitalArterial Blood Partial Pressure CO236.8 mm[Hg]35.0-45.0[facility] Arterial Blood Partial Pressure O284.2 mm[Hg]80.0-100.0[facility] HospitalArterial Blood pH7.437.35-7.45[facility] Blood Gas Critical ValueNoKettering Memorial HospitalFiO230 %[facility] HospitalNo Panel InformationOrdered By: Mike Verduzco on 69-87-8501Ukxei Gas PEEP5 vnI3RRcenpbljxKettering Memorial HospitalBlood Gas Sample SiteRight radialKettering Memorial HospitalBlood Gas Set Respiration Rate 12[facility] HospitalBlood Gas Tidal Mbqsfb897 mLKettering Memorial HospitalBlood Gas Ventilator ModeAcKettering Memorial HospitalAlanine aminotransferase [Enzymatic activity/volume] in Serum or Plasma Ordered By: Mike Verduzco on 37-68-2031SAY [Catalytic activity/Vol]143 U/L High7-52[facility] HospitalAlkaline phosphatase [Enzymatic activity/volume] in Serum or PlasmaOrdered By: Mike Verduzco on 08-15-2024 ALP [Catalytic activity/Vol]68 U/M95-876UaasfqknnK[facility] Hospital Aspartate aminotransferase [Enzymatic activity/volume] in Serum or PlasmaOrdered By: Mike Verduzco on 69-87-0423RRH [Catalytic activity/Vol]150 U/LHigh 13-39[facility] HospitalBilirubin.total [Mass/volume] in Serum or PlasmaOrdered By: Mike Verduzco on 15-79-8090Ylgbrrkio [Mass/Vol]0.5 mg/dL 0.3-1.0[facility] HospitalGlobulin Calc (S) [Mass/Vol]Ordered By: Mike Verduzco on 42-21-3661Mgwykyrv (S) [Mass/Vol]2.8 g/dLKettering Memorial HospitalHaptoglobin [Mass/volume] in Serum or PlasmaOrdered By: Rolo Perez on 92-89-0007Xncksgqlxps [Mass/Vol]132 mg/pQ74-585IgevnshciKettering Memorial HospitalLactate dehydrogenase [Enzymatic activity/volume] in Serum or Plasma by Lactate to pyOrdered By: Rolo Perez on 22-22-1192TMF Lactate to pyruvate reaction [Catalytic activity/Vol]296 U/VMaov449-407WbuoobfarKettering Memorial HospitalNo Panel InformationOrdered By: Rolo Perez on 93-14-0480Hiqjky for Pathologist ReviewOrdered path reviewKettering [facility] Hospital Protein [Mass/volume] in Serum or PlasmaOrdered By: Mike Verduzco on 46-91-9558Mlkhfuk [Mass/Vol]5.6 g/dLLow6.4-8.9[facility] Serum or plasma albumin/globulin mass ratioOrdered By: Mike Verduzco on 53-25-9855Nafuqzv/Globulin [Mass ratio]1.0 {ratio}[facility] HospitalFibrinogen [Mass/volume] in Platelet poor plasma by Coagulation assay Ordered By: Renny Multani on 42-73-6880Ydpetrypqv Coag (PPP) [Mass/Vol] 305 mg/oD710-710AfbtpkbmtKettering Memorial HospitalComment on above:A hematocrit value greater than 55% may lead to inaccurate results in coagulation testing. Patientshaving hematocrit values >55% require a special collection tube for coagulation studies. Please contact the laboratory at [phone] for redraw instructions.INR in Platelet poor plasma by Coagulation assayOrdered By: Renny Multani on 55-45-0032UYB Coag (PPP) [Relative time]1.2 {INR} [facility] HospitalComment on above:INR Therapeutic Range A) Pre- and Peroperative OAT started two weeks before surgery. NOT HIP SURGERY: 1.5 - 2.5 HIP SURGERY: 2 - 3B) Primary and secondary prevention of venous THROMBOSIS: 2 - 3C) Active venous thrombosis, pulmonary embolismand prevention of recurrent venous thrombosis: 2 - 3D) Prevention of arterial thromboembolismincluding patients with mechanical heart valves: 3 - 4.5Prothrombin time (PT)Ordered By: Renny Multani on 15-22-8619YN Coag (PPP) [Time]13.3 sHigh9.0-12.9 [facility] HospitalComment on above:A hematocrit value greater than 55% may lead to inaccurate results in coagulation testing. Patientshaving hematocrit values >55% require a special collection tube for coagulation studies. Please contact the laboratory at [phone] for redraw instructions. Activated partial thromboplastin time (aPTT) in platelet poor plasma by coagulation aOrdered By: Mike Verduzco on 13-93-5065rJWD Coag (PPP) [Time] 29.2 s25.1-36.5FGlenbeigh HospitalComment on above:A hematocrit value greater than 55% may lead to inaccurate results in coagulation testing. Patientshaving hematocrit values >55% require a special collection tube for coagulation studies. Please contact the laboratory at [phone] for redraw instructions.Anisocytosis LM Ql (Bld)Ordered By: Mike Verduzco on 01-89-6087Yoelnppgptgl Ql (Bld)SlightKettering Memorial Hospital Cholesterol [Mass/volume] in Serum or PlasmaOrdered By: Mike Verduzco on 63-22-1030Zobjtajvlcz [Mass/Vol]85 mg/hJAik047-455RfgkclyzlKettering Memorial HospitalComment on above:Chol less than 200 mg/dl low riskChol 201-239 mg/dl borderline riskChol 240 mg/dl and greater high riskCholesterol in LDL Calc [Mass/Vol]Ordered By: Mike Verduzco on 92-06-5179Jmeydsmiasl in LDL [Mass/Vol]30 mg/dL0-100[facility] HospitalComment on above:LDL ATP III CLASSIFICATIONLDL less than 100 mg/dL OptimalLDL 100-129 mg/dL Near or above gaodiayBDK534-615 mg/dL Borderline highLDL 160-189 mg/dL HighLDL greater than 189 mg/dL Very highCholesterol in VLDL Calc [Mass/Vol]Ordered By: Mike Verduzco on 73-35-1654Tkaocjxczuz in VLDL [Mass/Vol]36 mg/dLKettering Memorial HospitalFolate [Mass/volume] in Serum or PlasmaOrdered By: Mike Verduzco on 80-12-9428Eyugnl [Mass/Vol]9.4 ng/mL>5.9[facility] HospitalComment on above:Folate reference range: >5.9 ng/mlThe WHO technical consultation on folate and vitamin a81ulzvluryfvgs has determined that folate concentrations lessthan 4 ng/ml are considered deficient.Glucose Glucometer (BldC) [Mass/Vol]Ordered By: Mike Verduzco on 97-54-8470Wpqbcgt [Mass/Vol] 117 mg/hJKrkt04-629UocohktldKettering Memorial HospitalGlucose mean value [Mass/volume] in Blood Estimated from glycated hemoglobinOrdered By: Mike Verduzco on 24-36-9901Tmjmpmh glucose Estimated from glycated hemoglobin (Bld) [Mass/Vol]105 mg/dLKettering Memorial HospitalGram stain for investigation of transfusion reactionOrdered By: Renny Multani on 08-13-2024 Microscopic observation Gram stain Nom (Unsp spec)1 [facility] SystemHemoglobin A1c percentageOrdered By: Mike Verduzco on 88-88-7498LmZ0a (Bld) [Mass fraction]5.3 %4.3-5.6FGlenbeigh HospitalComment on above:Increased risk for diabetes: 5.7 - 6.4diabetes: >6.4glycemic control for adults with diabetes: <7.0Ovalocyte detectionOrdered By: Mike Verduzco on 49-88-8188Cdxbdcbakk LM Ql (Bld)SlightKettering Memorial HospitalPlatelet adequacy [Presence] in Blood by Light microscopy Ordered By: Mike Verduzco on 26-72-3449Tjkuvvhmy LM Ql (Bld)NormalNormal [facility] HospitalPlatelet morphology finding [Identifier] in BloodOrdered By: Mike Verduzco on 85-63-2929Yyoblhvl morphology finding Nom (Bld)NormalNormalKettering Memorial HospitalPoikilocytosis [Presence] in Blood by Light microscopyOrdered By: Mike Verduzco on 08-13-2024 Poikilocytosis LM Ql (Bld)[facility] HospitalRBC morphology Ordered By: Mike Verduzco on 86-89-4816SSL morphology finding Nom (Bld)N/A [facility] HospitalRandom cortisol measurementOrdered By: Renny Multani on 68-12-0997Wpyqmbzq [Mass/Vol]11.8 ug/dLKettering Memorial HospitalComment on above:[facility] flour tester and method:[employer]EL DXI, POLYCLONAL ANTIBODY CORTISOL ASSAY.Reference range: AM 6 - 24 ug/dl PM <10 ug/dlRed blood cell stomatocyte detectionOrdered By: Mike Verduzco on 81-51-1983Uocsrncqvzvj LM Ql (Bld)[facility] Hospitalerum or plasma high density lipoprotein (HDL) cholesterol measurementOrdered By: Mike Verduzco on 65-80-9995Fbpzalakqjv in HDL [Mass/Vol]19 mg/nOTtm40-98XldsolmqgKettering Memorial HospitalComment on above:HDL CHOL ATP-III CLASSIFICATION Cardiovascular RiskHDL > or equal to 60 mg/dL LOWHDL < 40 mg/dL HIGHSerum or plasma total cholesterol/high density lipoprotein (HDL) cholesterol mass ratOrdered By: Mike Verduzco on 97-49-3504Lfricipkmpc.total/Cholesterol in HDL [Mass ratio]4.5 {ratio}<5.0 [facility] HospitalThyrotropin [Units/volume] in Serum or Plasma Ordered By: Mike Verduzco on 61-37-2958SIY Qn0.29 m[IU]/LLow0.45-5.33 [facility] CenterThyroxine (T4) free [Mass/volume] in Serum or PlasmaOrdered By: Mike Verduzco on 98-19-2738Nwhz T4 [Mass/Vol]0.88 ng/dL 0.61-1.12[facility] HospitalVitamin B12 ser/plasOrdered By: Mike Verduzco on 30-42-7483Ktoruqapu (Vitamin B12) [Mass/Vol]417 pg/mL 180-914[facility] HospitalActivated partial thromboplastin time (aPTT) in platelet poor plasma by coagulation aOrdered By: Chase Packer on 07-74-5142hKSV Coag (PPP) [Time]25.7 s25.1-36.5FGlenbeigh Hospital Comment on above:A hematocrit value greater than 55% may lead to inaccurate results in coagulation testing. Patientshaving hematocrit values >55% require a special collection tube for coagulation studies. Please contact the laboratory at [phone] for redraw instructions.Alanine aminotransferase [Enzymatic activity/volume] in Serum or PlasmaOrdered By: Chase Packer on 08-12-2024 ALT [Catalytic activity/Vol]131 U/LHigh7-52[facility] Albumin [Mass/volume] in Serum or Plasma by Bromocresol green (BCG) dye binding methoOrdered By: Chase Packer on 15-56-7241Szjlevg BCG dye [Mass/Vol]4.3 g/dL3.5-5.7FGlenbeigh HospitalAlkaline phosphatase [Enzymatic activity/volume] in Serum or PlasmaOrdered By: Chase Packer on 08-12-2024 ALP [Catalytic activity/Vol]117 U/FDnih17-686ZrwhtbvzlK[facility] Hospital Ammonia [Moles/volume] in PlasmaOrdered By: Chase Packer on 08-12-2024 Ammonia (P) [Moles/Vol]35 umol/D39-12KqdplidsbKettering [facility] Hospital Amphetamine Screen Ql (U)Ordered By: Chase Packer on 87-10-7112Svyfrifdwwwc Ql (U)NegativeNegativeK[facility]tering Memorial HospitalAspartate aminotransferase [Enzymatic activity/volume] in Serum or PlasmaOrdered By: Chase Packer on 62-65-0856FQO [Catalytic activity/Vol]194 U/LNtiv96-23 [facility] HospitalBacteria [Presence] in Urine by Automated Ordered By: Chase Packer on 01-57-2264Gibfepuj Auto Ql (U)Rare [HPF]None SeenKettering Memorial HospitalBacterial blood cultureOrdered By: Chase Packer on 26-91-7257Tfpnlbhg identified Cx Nom (Bld)NO GROWTH 5 DAYS [facility] HospitalBacteria identified Cx Nom (Bld)NO GROWTH 5 DAYSKettering Memorial HospitalBarbiturates [Presence] in Urine by Screen methodOrdered By: Chase Packer on 92-19-3607Ctjvasiacdvw Screen Ql (U) NegativeNegativeK[facility]tering Memorial HospitalBasophils Auto (Bld) [#/Vol] Ordered By: Chase Packer on 83-98-5039Xhawrxwcn (Bld) [#/Vol]0.0 10*3/uL 0.0-0.2FGlenbeigh HospitalBasophils/100 WBC Auto (Bld)Ordered By: Chase Packer on 93-98-7846Flkccqzfy/100 WBC (Bld)0.2 %.[facility] HospitalBenzodiazepines Screen Ql (U)Ordered By: Chase Packer on 91-07-5887Nvsgqlnlljloufa Ql (U)PositiveHighNegativeKettering Memorial HospitalBenzoylecgonine [Presence] in Urine by Screen methodOrdered By: Chase Packer on 85-78-1369Nscgyocfxipnocy Screen Ql (U)NegativeNegativeK[facility]tering Memorial HospitalBilirubin Test strip Ql (U)Ordered By: Chase Packer on 34-96-8051Ltotqatyu Ql (U)NegativeNegativeK[facility] Hospital Bilirubin.total [Mass/volume] in Serum or PlasmaOrdered By: Chase Packer on 49-83-9623Uozzvjniw [Mass/Vol]0.7 mg/dL0.3-1.0[facility] COVID-19 Detected/Not DetectedOrdered By: Mike Verduzco on 08-12-2024 SARS-CoV-2 (COVID-19) RNA VIVIANA+non-probe Ql (Nph)Not detectedNot DetectPremier Health Upper Valley Medical CenterComment on above:This is a duplicate RP2.1 COVID (PCR) result to be used for statistical tracking purpose only.Calcium [Mass/volume] in Serum or PlasmaOrdered By: Chase Packer on 37-00-9281Ojfjopi [Mass/Vol]8.4 mg/dLLow8.6-10.3FGlenbeigh HospitalCannabinoids [Presence] in Urine by Screen methodOrdered By: Chase Packer on 94-27-0187Lriuzmvmjlnr Screen Ql (U)PositiveHighNegativeKettering Memorial HospitalComment on above:These are unconfirmed results and should not be used for legal purposes. Drug Cut-Off Concentration: AMPH 1000 ng/mL LIAN 200 ng/mL BRIGHT 200 ng/mL COCM 300 ng/mL OP 300 ng/mL PCP 25 ng/mL THC 20 ng/mLCarbon dioxide, total [Moles/volume] in Serum or PlasmaOrdered By: Chase Packer on 42-06-5962GW2 [Moles/Vol]28.7 mmol/L21.0-31.0[facility] HospitalCasts [Presence] in Urine by AutomatedOrdered By: Chase Packer on 08-63-3940Sudnc Auto Ql (U)5-9 [LPF]HighNone SeenKettering Memorial HospitalChloride [Moles/volume] in Serum or PlasmaOrdered By: Chase Packer on 08-12-2024 Chloride [Moles/Vol]97 mmol/UKcz00-457HwgenhjacKettering Memorial HospitalColor Auto (U)Ordered By: Chase Packer on 42-56-1607Tqnrh (U)YellowYelUC Medical CenterCreatine kinase [Enzymatic activity/volume] in Serum or PlasmaOrdered By: Chase Packer on 36-07-9489KO [Catalytic activity/Vol]477 U/TOvfx12-627BbtcugjzlKettering Memorial HospitalCreatinine [Mass/volume] in Serum or PlasmaOrdered By: Chase Packer on 08-12-2024 Creatinine [Mass/Vol]1.71 mg/dLHigh0.60-1.20[facility] Eosinophils Auto (Bld) [#/Vol]Ordered By: Chase Packer on 08-12-2024 Eosinophils (Bld) [#/Vol]0.0 10*3/uL0.0-0.45[facility] Eosinophils/100 WBC Auto (Bld)Ordered By: Chase Packer on 08-12-2024 Eosinophils/100 WBC (Bld)0.0 %.[facility] HospitalEpithelial cells.squamous [#/area] in Urine sediment by Automated countOrdered By: Chase Packer on 70-47-1839Zevzrfyole cells.squamous Auto (Urine sed) [#/Area]1-2 [HPF]0-2FGlenbeigh HospitalErythrocyte distribution width Auto (RBC) [Ratio]Ordered By: Chase Packer on 26-10-4306Uzkeqysguyw distribution width (RBC) [Ratio]16.6 %High11.9-15.3FGlenbeigh HospitalErythrocytes [#/area] in Urine sediment by Automated countOrdered By: Chase Packer on 03-53-5820OHS Auto (Urine sed) [#/Area]1-2 [HPF]0-4 [facility] HospitalEthanol [Mass/volume] in Serum or PlasmaOrdered By: Chase Packer on 41-87-4787Fzpudcj [Mass/Vol]mg/dLKettering Memorial HospitalEthanol [Mass/Vol]TNPKettering Memorial HospitalComment on above:Test not performedGlobulin Calc (S) [Mass/Vol]Ordered By: Chase Packer on 64-84-8435Twrsitmp (S) [Mass/Vol]4.0 g/dLK[facility]tering Memorial HospitalGlucose Glucometer (BldC) [Mass/Vol]Ordered By: Chase Packer on 26-53-7701Raatemv [Mass/Vol]191 mg/dLKettering Memorial HospitalComment on above:Random Glucose Reference Range is dependent on time and content of last meal. Glucose of more than 200 mg/dL in a nonstressed, ambulatory subject supports the diagnosis of Diabetes Mellitus.Glucose [Mass/volume] in Serum or PlasmaOrdered By: Chase Packer on 68-63-0353Mqfwgkn [Mass/Vol]63 mg/dLLow 70-100[facility] HospitalComment on above:ADA recommended reference rangeRandom Glucose Reference Range is dependent on time and content of last meal. Glucose of more than 200 mg/dL in a nonstressed, ambulatory subject supports the diagnosisof Diabetes Mellitus.Glucose [Mass/volume] in Urine by Test stripOrdered By: Chase Packer on 88-08-8363Nkjxvji Test strip (U) [Mass/Vol]Normal mg/dLNormalK[facility]tering Memorial HospitalHCG ( test) IA.rapid Ql (U)Ordered By: Chase Packer on 68-92-4256OBP ( test) Ql (U)NegativeKettering Memorial HospitalHematocrit Auto (Bld) [Volume fraction]Ordered By: Chase Packer on 42-55-7979Iiekxmklgo (Bld) [Volume fraction]31.9 %Low34.0-46.4FGlenbeigh HospitalHemoglobin Test strip Ql (U)Ordered By: Chase Packer on 97-89-8145Tiwhseakrf Ql (U) NegativeNegCrystal Clinic Orthopedic CenterHemoglobin [Mass/volume] in BloodOrdered By: Chase Packer on 68-56-0747Sbgfxttpeb (Bld) [Mass/Vol]10.4 g/dLLow11.8-15.4FGlenbeigh HospitalHyaline casts [#/area] in Urine sediment by Automated countOrdered By: Chase Packer on 28-19-6723Qlortgo casts Auto (Urine sed) [#/Area]0-8 [LPF]0-8[facility] HospitalINR in Platelet poor plasma by Coagulation assayOrdered By: Chase Packer on 23-88-4501UOE Coag (PPP) [Relative time]1.2 {INR}[facility] HospitalComment on above:INR Therapeutic Range A) Pre- and Peroperative OAT started two weeks before surgery. NOT HIP SURGERY: 1.5 - 2.5 HIP SURGERY: 2 - 3B) Primary and secondary prevention of venous THROMBOSIS: 2 - 3C) Active venous thrombosis, pulmonary embolismand prevention of recurrent venous thrombosis: 2 - 3D) Prevention of arterial thromboembolismincluding patients with mechanical heart valves: 3 - 4.5Ketones Test strip Ql (U)Ordered By: Chase Packer on 41-18-2289Plvhtge Ql (U)TraceHighNegativeK[facility] Hospital Laboratory - Chemistry and Chemistry - challengeOrdered By: Chase Packer on 89-93-5110ME1 [Moles/Vol]21.6 mmol/LLow23.0-27.0[facility] HospitalHCO3 (Bld) [Moles/Vol]20.5 mmol/LLow23.0-29.0[facility] HospitalLaboratory - Microbiology and Antimicrobial susceptibilityOrdered By: Chase Packer on 31-84-3632Zphghttn identified Cx Nom (U)Escherichia coli AbnormalKettering Memorial HospitalLactate [Moles/volume] in Serum or PlasmaOrdered By: Chase Packer on 25-25-1383Ghovnwx [Moles/Vol]4.1 mmol/L High0.5-2.2FGlenbeigh HospitalComment on above:Critical Result : Called to and read back by: ROB ESTRADA at: 08/12/2024 21:44:41 by:[id number] clumps [Presence] in Urine by AutomatedOrdered By: Chase Packer on 66-21-0130Kglztanrh clumps Auto Ql (U)Occasional [LPF]High None SeenKettering Memorial HospitalLeukocyte esterase [Presence] in Urine by Test stripOrdered By: Chase Packer on 22-06-7222Xernkimeu esterase Test strip Ql (U)1+HighNegativeKettering Memorial HospitalLeukocytes [#/area] in Urine sediment by Automated countOrdered By: Chase Packer on 08-12-2024 WBC Auto (Urine sed) [#/Area]5-9 [HPF]High0-4FGlenbeigh Hospital Leukocytes [#/volume] corrected for nucleated erythrocytes in Blood by Automated counOrdered By: Chase Packer on 03-73-7455WFA corrected for nucl RBC Auto (Bld) [#/Vol]7.5 10*3/uL3.8-11.6FGlenbeigh HospitalLymphocytes Auto (Bld) [#/Vol]Ordered By: Chase Packer on 65-10-7193Sfwxmfiqyrh (Bld) [#/Vol]1.6 10*3/uL1.00-4.8[facility] HospitalLymphocytes/100 WBC Auto (Bld)Ordered By: Chase Packer on 59-08-3706Czekturlyjt/100 WBC (Bld) 21.1 %.[facility] HospitalMCH Auto (RBC) [Entitic mass]Ordered By: Chase Packer on 89-13-0982OUT (RBC) [Entitic mass]33.1 pg24.7-34.3FGlenbeigh HospitalMCHC Auto (RBC) [Mass/Vol]Ordered By: Chase Packer on 06-12-4429XRQJ (RBC) [Mass/Vol]32.7 g/dL32.0-35.0[facility] HospitalMCV Auto (RBC) [Entitic vol]Ordered By: Chase Packer on 95-44-0151GVP (RBC) [Entitic vol]101.1 xFJpzq95-009PccfggmpnKettering Memorial HospitalMonocyte distribution width [Entitic volume] in Blood by AutomatedOrdered By: Chase Packer on 47-71-4084Ldbxenoc distribution width Auto (Bld) [Entitic vol]18.25 % 0.00-20.00[facility] HospitalMonocytes Auto (Bld) [#/Vol]Ordered By: Chase Packer on 73-20-3882Gfwkwagwx (Bld) [#/Vol]0.8 10*3/uL0.0-0.8 [facility] HospitalMonocytes/100 WBC Auto (Bld)Ordered By: Chase Packer on 08-20-5655Rvqeougnz/100 WBC (Bld)10.2 %.[facility] HospitalMucus [Presence] in Urine by AutomatedOrdered By: Chase Packer on 48-69-5721Qwduw Auto Ql (U)Rare [LPF][facility] HospitalNatriuretic peptide B [Mass/Vol]Ordered By: Mike Verduzco on 50-14-6592Qctcvycgwoh peptide B (Bld) [Mass/Vol]215.0 pg/mLHigh5-100[facility] HospitalNeutrophils Auto (Bld) [#/Vol]Ordered By: Chase Packer on 17-45-6902Bbzovnritrt (Bld) [#/Vol]5.2 10*3/uL1.8-7.7FGlenbeigh HospitalNeutrophils/100 WBC Auto (Bld)Ordered By: Chase Packer on 26-51-9373Xgpuarhevug/100 WBC (Bld)68.5 %.[facility] HospitalNitrite Test strip Ql (U)Ordered By: Chase Packer on 08-12-2024 Nitrite Ql (U)NegativeNegCrystal Clinic Orthopedic CenterNo Panel InformationOrdered By: Chase Packer on 98-23-7342Omraltya Blood Base Excess -4.4 mmol/LLow-3.0-3.0[facility] HospitalArterial Blood Oxygen Content7.1 mmol/L6.6-9.7FGlenbeigh HospitalArterial Blood Oxygen Gtomasqivd94.3 %95.0-100.0[facility] HospitalArterial Blood Partial Pressure CO237.2 mm[Hg]35.0-45.0[facility] Arterial Blood Partial Pressure O2157.2 mm[Hg]High80.0-100.0[facility] HospitalArterial Blood pH7.367.35-7.45[facility] Blood Gas Critical ValueSee commentKettering Memorial HospitalComment on above:Critical Value called on: 08/12/2024 at 15:54Blood Gas PEEP5 cmH2O [facility] HospitalBlood Gas Sample SiteLeft brachialKettering Memorial HospitalBlood Gas Set Respiration Edzy67YhujaleisKettering Memorial HospitalBlood Gas Tidal Wqmpah452 mLKettering Memorial HospitalBlood Gas Ventilator ModeAcKettering Memorial HospitalFiO2100 %[facility] HospitalEstimated GFR (CKD-EPI)40.324 mL/MinKettering Memorial HospitalPharmacy Creatinine Clearance (Chem55.91[facility] HospitalOxygen Delivery DeviceNon rebreather maskKettering Memorial HospitalNucleated erythrocytes [Presence] in Blood by Automated countOrdered By: Chase Packer on 31-25-8449Qyjuwgner RBC Auto Ql (Bld)0.1 /100{WBC}0-0.5 [facility] HospitalOpiates [Presence] in Urine by Screen method Ordered By: Chase Packer on 68-69-2409Fbnqdwu Screen Ql (U)NegativeNegative [facility] HospitalPhencyclidine Screen Ql (U)Ordered By: Chase Packer on 73-33-4531Tfyqtnehzkbxt Ql (U)NegativeNegCrystal Clinic Orthopedic CenterPlatelet mean volume Auto (Bld) [Entitic vol]Ordered By: Chase Packer on 27-97-3085Hwjqafvj mean volume (Bld) [Entitic vol]9.8 fL 6.3-10.7FGlenbeigh HospitalPlatelets Auto (Bld) [#/Vol]Ordered By: Chase Packer on 95-68-0680Olpwhyret (Bld) [#/Vol]165 10*3/oH854-547 [facility] HospitalPotassium [Moles/volume] in Serum or Plasma Ordered By: Chase Packer on 09-96-6025Geeupmxbr [Moles/Vol]4.8 mmol/L 3.5-5.1FGlenbeigh HospitalComment on above:Hemolysis is present at a level that could interfere with the result.Contact lab if redraw is required Protein Test strip (U) [Mass/Vol]Ordered By: Chase Packer on 08-12-2024 Protein (U) [Mass/Vol]50 mg/dLHighNegativeK[facility] Hospital Protein [Mass/volume] in Serum or PlasmaOrdered By: Chase Packer on 60-27-1617Mdyxvcz [Mass/Vol]8.3 g/dL6.4-8.9[facility] Prothrombin time (PT)Ordered By: Chase Packer on 98-78-9647XK Coag (PPP) [Time]13.4 sHigh9.0-12.9[facility] HospitalComment on above:A hematocrit value greater than 55% may lead to inaccurate results in coagulation testing. Patientshaving hematocrit values >55% require a special collection tube for coagulation studies. Please contact the laboratory at [phone] for redraw instructions.RBC Auto (Bld) [#/Vol]Ordered By: Chase Packer on 76-99-7084HLC (Bld) [#/Vol]3.16 10*6/uLLow3.60-5.00[facility] HospitalRespiratory pathogens DNA and RNA panel - Nasopharynx by VIVIANA with non- probe detectionOrdered By: Mike Verduzco on 26-77-3569Fdzwgotdssp pathogens DNA and RNA panel VIVIANA+non-probe (Nph)[facility] Serum or plasma albumin/globulin mass ratioOrdered By: Chase Packer on 86-48-3652Tvtdacr/Globulin [Mass ratio]1.1 {ratio}[facility] Hospitalerum or plasma anion gap determinationOrdered By: Chase Packer on 25-24-3442Wrkdm gap [Moles/Vol]18.1 mmol/LHigh6.0-15.0[facility] Hospitalodium [Moles/volume] in Serum or PlasmaOrdered By: Chase Packer on 57-10-9483Noqftm [Moles/Vol]139 mmol/U334-731QegbrlopfKettering Memorial Hospital Specific gravity Test strip (U) [Rel density]Ordered By: Chase Packer on 13-44-0158Uopuqbdw gravity (U) [Rel density]1.0151.001-1.030[facility] HospitalThyrotropin [Units/volume] in Serum or PlasmaOrdered By: Chase Packer on 69-24-5655GYW Qn0.45 m[IU]/L0.45-5.33[facility] HospitalTroponin I.cardiac [Mass/volume] in Serum or Plasma by Detection limit <= 0.01 ng/Ordered By: Chase Packer on 53-84-8230Anrlgzyi I.cardiac DL <= 0.01 ng/mL [Mass/Vol]176.4 pg/mLHigh0.0-15.0[facility] HospitalComment on above:Critical Result : Called to and read back by: MARIO GARCIA at: 08/12/2024 12:08:54 by:MLGUrea nitrogen [Mass/volume] in Serum or PlasmaOrdered By: Chase Packer on 62-13-1889Ngew nitrogen [Mass/Vol]24 mg/dL7-25[facility] HospitalUrine appearanceOrdered By: Chase Packer on 50-04-4364Ehoknizetr (U)CloudyAbnormalCleSt. Charles Hospital Urobilinogen Test strip (U) [Mass/Vol]Ordered By: Chase Packer on 69-84-8109Fcyrizjdicmu (U) [Mass/Vol]Normal mg/dLNormalKettering Memorial HospitalWBC Auto (Bld) [#/Vol]Ordered By: Chase Packer on 08-12-2024 WBC (Bld) [#/Vol]7.5 10*3/uL3.8-11.6FGlenbeigh HospitalpH Test strip (U)Ordered By: Chase Packer on [id number] (U)6.0 [pH]5.0-9.0 [facility] HospitalQuick Strepon 03-06-2023S. pyogenes Org specific cx Ql (Throat)NegativeNoPaperhater.com PASSNFLY Other Quick StrepNoTerarecon Other CBCon 83-03-1356Mdouxtczdvd distribution width (RBC) [Ratio]13.5 %Xlityx45.8-14.4Barney Children'S Medical CenterComment on above:Performed By: #### CBC, PT, CP #### [address] [place] [address] Refuge Worker: Elijah Harris MDHematocrit (Bld) [Volume fraction]30.0 %Low 36.3-47.1MKettering Health – Soin Medical CenterComment on above:Performed By: #### SHARDA, PT, CP #### [address] [place], [place] [id number] Refuge Worker: Elijah Harris MDHemoglobin (Bld) [Mass/Vol]9.9 g/dLLow11.9-15.1 [facility]'S Medical CenterComment on above:Performed By: #### CBC, PT, CP #### [address] [place], [place] [id number] Refuge Worker: MIRELLA BajwaCH (RBC) [Entitic mass]35.9 txXtaz29.2-33.5Barney Children'S Medical CenterComment on above:Performed By: #### CBC, PT, CP #### [address] [place] [address] Refuge Worker: MERI BajwaC (RBC) [Mass/Vol]33.0 g/mMXrcgcz94.4-34.8Barney Children'S Medical CenterComment on above:Performed By: #### CBC, PT, CP #### [address] [place] [address] Refuge Worker: HEMA Bajwa (RBC) [Entitic vol]108.7 gLSqpv23.6-102.9Barney Children'S Medical CenterComment on above:Performed By: #### CBC, PT, CP #### [address] [place], [facility]83 Refuge Worker: ANABELLA Bajwa Automated0.0 per 100 WBCNormal0.0Barney Children'S Medical CenterComment on above:Performed By: #### CBC, PT, CP #### [address] [place] [id number] Refuge Worker: Emily Bajwa mean volume (Bld) [Entitic vol]10.4 fL Normal8.1-13.5Bar[facility] Children'S Medical CenterComment on above:Performed By: #### SHARDA, PT, CP #### [address] [place] [address] Refuge Worker: Samaria Bajwa (Bld) [#/Vol]379 10*3/dSFptrce867-864 [facility]'S Medical CenterComment on above:Performed By: #### CBC, PT, CP #### [address] [place], [place] [address] Refuge Worker: VALDEZ Bajwa (Bld) [#/Vol]2.76 10*6/uLLow3.95-5.11Bar[facility] Children'S Medical CenterComment on above:Performed By: #### SHARDA, PT, CP #### [address] [place] [address] Refuge Worker: DAMEON Bajwa (Bld) [#/Vol]4.3 10*3/uLNormal3.5-11.3MKettering Health – Soin Medical CenterComment on above:Performed By: #### CBC, PT, CP #### [facility] [address] [place] [address] Refuge Worker: Elijah Harris MDHematocrit (Bld) [Volume fraction]30.0 %Low36.3 - 47.1 %[facility]MMACULATE HOSPITALHemoglobin (Bld) [Mass/Vol]9.9 g/dLLow11.9 - 15.1 g/dLBON REGENCY HOSPITAL COMPANYInterpretation and review of laboratory results AbnormalBON KETTER[facility] GREENE MEMORIALH (RBC) [Entitic mass]35.9 ihTczl47.2 - 33.5 pgSENTARA RMH MEDICAL CENTERHC (RBC) [Mass/Vol]33.0 g/dL28.4 - 34.8 g/dLBON [facility] MEMORIALV (RBC) [Entitic vol]108.7 zCMeje06.6 - 102.9 fLBON SECOURS MARY IMMACULATE HOSPITALNRBC Automated0.00.0 per 100 WBCBON [facility] Platelet distribution width (Bld) [Ratio]13.5 %11.8 - 14.4 %B[facility] REGENC[facility] HOSPITAL COMPANYPlatelet mean volume (Bld) [Entitic vol]10.4 fL8.1 - 13.5 fLBON SECOURS MARY IMMACULATE HOSPITALPlatelets (Bld) [#/Vol]379 10*3/uLBON SECOURS MARY IMMACULATE HOSPITALRBC (Bld) [#/Vol]2.76 10*6/uLLow3.95 - 5.11 m/uLBON SECOURS MARY IMMACULATE HOSPITALWBC (Bld) [#/Vol] 4.3 10*3/uLNORTON COMMUNITY HOSPITALComp Metabolic Profon 14-21-7699Lzaqdby [Mass/Vol]4.1 g/dLNormal3.5-5.2[facility]'S HospitalComformerly [facility] on above:Performed By: #### CBC, PT, CP #### [facility] [address] [place] [address] Refuge Worker: Elijah Harris MDAlbumin/Glob Ratio1.4Krhlcs6.0-2.5[facility]entown HospitalComment on above:Performed By: #### CBC, PT, CP #### [address] [place] [address] Refuge Worker: Srinath Bajwa Wiju195 U/ZWiap55-296VagnjYale New Haven HospitalComment on above:Performed By: #### CBC, PT, CP #### [address] [place] [address] Refuge Worker: Elijah Harris MDALT [Catalytic activity/Vol]85 U/LHigh5-33Barney Children'S Medical CenterComment on above:Performed By: #### CBC, PT, CP #### [address] [place] [address] Refuge Worker: Katia Bajwa gap [Moles/Vol]8 mmol/LLow9-17Barney Children'S Medical CenterComment on above:Performed By: #### CBC, PT, CP #### [address] [place] [address] Refuge Worker: Elijah Harris MDAST [Catalytic activity/Vol]87 U/LHigh<32Bar[facility] Children'S Medical CenterComment on above:Performed By: #### CBC, PT, CP #### [address] [place] [address] Refuge Worker: Elijah Harris MDBilirubin [Mass/Vol]0.5 mg/dLNormal0.3-1.2[facility] Children'S HospitalComment on above:Performed By: #### CBC, PT, CP #### [address] [place] [address] Refuge Worker: Elijah Harris MDBUN/CRE Fdoit32Ttyx8-35LflisBarney Children'S Medical Center Comment on above:Performed By: #### CBC, PT, CP #### [address] [place] [id number] Refuge Worker: JENARO Bajwaalcium [Mass/Vol]9.7 mg/dLNormal8.6-10.4Bar[facility] Children'S Medical CenterComment on above:Performed By: #### CBC, PT, CP #### [address] [place], [facility]83 Refuge Worker: JENARO Bajwahloride [Moles/Vol]102 mmol/XJwppkj52-385DizreBarney Children'S Medical CenterComment on above:Performed By: #### CBC, PT, CP #### [address] [place], [facility]83 Refuge Worker: Elijah Harris MDCO2 [Moles/Vol]29 mmol/LIntnwv12-16EhcydBarney Children'S Medical CenterComment on above:Performed By: #### SHARDA, PT, CP #### [address] [place], [facility]83 Refuge Worker: JENARO Bajwareatinine [Mass/Vol]0.59 mg/dLNormal0.50-0.90 [facility]'S Medical CenterComment on above:Performed By: #### CBC, PT, CP #### [address] [place], [facility]83 Refuge Worker: Elijah Harris MDGFR/1.73 sq M.predicted among non-blacks MDRD (S/P/Bld) [Vol rate/Area]mL/min/{1.73_m2}Normal>60Barney Children'S Medical CenterComment on above:Result Comment: These results are not intended for [...] or following therapy that affects renal tubular secretion.Performed By: #### CBC, PT, CP #### [address] [place], [place] [phone] Refuge Worker: Elijah Harris MDGlucose [Mass/Vol]107 mg/iVNunx39-62ArbyjKettering Health – Soin Medical CenterComment on above:Performed By: #### CBC, PT, CP #### [address] [place], [place] [id number] Refuge Worker: Elijah Harris MDPotassium [Moles/Vol]4.3 mmol/LNormal3.7-5.3[facility] Greentown HospitalComment on above:Performed By: #### SHARDA, PT, CP #### [address] [place], [place] [phone] Refuge Worker: Elijah Harris MDProtein [Mass/Vol]7.7 g/dLNormal6.4-8.3Mselect medical cleveland clinic rehabilitation hospital, beachwoody Greentown HospitalComment on above:Performed By: #### SHARDA, PT, CP #### [address] [place], [place] [phone] Refuge Worker: NORBERT Bajwaodium [Moles/Vol]139 mmol/CBlcwwz852-610UdpzjBarney Children'S Medical CenterComment on above:Performed By: #### SHARDA, PT, CP #### [address] [place], [place] [phone] Refuge Worker: Elijah Harris MDUrea nitrogen [Mass/Vol]14 mg/dLNormal6-20[facility] HospitalComment on above:Performed By: #### SHARDA, PT, CP #### [address] [place] [address] Refuge Worker: JENARO Bajwaomprehensive Metabolic Panelon [id number] [Mass/Vol]4.1 g/dL3.5 - 5.2 g/dLBON REGENCY HOSPITAL COMPANYAlbumin/Globulin [Mass ratio]1.1 {ratio}1.0 - 2.5B[facility] REGENCY HOSPITAL COMPANYALP [Catalytic activity/Vol] 161 U/LHigh35 - 104 U/LBON [facility]UNITY HOSPITALCanadian Corporate Coaching Group [facility] HOSPITALALT [Catalytic activity/Vol]85 U/LHigh5 - 33 U/LBON [facility] COMMUNITY HOSPITALClrTouchAnion gap [Moles/Vol]8 mmol/LLow9 - 17 mmol/LBON [facility]UNITY HOSPITALCanadian Corporate Coaching Group HEALTHAST [Catalytic activity/Vol]87 U/LHighNINF - 32 U/LBON [facility]OT[facility] COMMUNITY HOSPITALClrTouchBilirubin [Mass/Vol]0.5 mg/dL0.3 - 1.2 mg/dLBON SECOTHELLO COMMUNITY HOSPITALCanadian Corporate Coaching Group [facility] HOSPITALCalcium [Mass/Vol]9.7 mg/dL8.6 - 10.4 mg/dLBON SECOTHELLO COMMUNITY HOSPITALClrTouchChloride [Moles/Vol]102 mmol/L98 - 107 mmol/LBON [facility] GLSSCO2 [Moles/Vol]29 mmol/L20 - 31 mmol/LBON [facility] GLSSCreatinine [Mass/Vol] 0.59 mg/dL0.50 - 0.90 mg/dLBON LOS ANGELES COMMUNITY HOSPITALClrTouchGFR/1.73 sq M.predicted MDRD (S/P/Bld) [Vol rate/Area]- PINFBON REGENCY HOSPITAL COMPANYComment on above: These results are not intended [...] therapy that affects renal tubular secretion. Glucose [Mass/Vol]107 mg/xIHgux15 - 99 mg/dLBON REGENC[facility]ITAL COMPANY Interpretation and review of laboratory resultsAbnormalBON [facility]OS[facility]ITAL COMPANY Potassium [Moles/Vol]4.3 mmol/L3.7 - 5.3 mmol/LBON [facility] GLSSProtein [Mass/Vol]7.7 g/dL6.4 - 8.3 g/dLBON REGENC[facility] HOSPITAL COMPANYSodium [Moles/Vol]139 mmol/L135 - 144 mmol/LBON [facility] GLSSUrea nitrogen [Mass/Vol]14 mg/dL6 - 20 mg/dLBON [facility] HEALTHUrea nitrogen/Creatinine (Bld) [Mass ratio]24 High9 - 20BON [facility] 46-08-6209VHX Coag (PPP) [Relative time]0.9 {INR}Medina HospitalComment on above: Result Comment: Therapeutic Range: Moderate Anticoagulant Intensity: INR = 2.0-3.0 High Anticoagulant Intensity: INR = 2.5-3.5Performed By: #### CBC, PT, CP #### [facility] [address] [place] [address] [place] [address] Refuge Worker: VARUN Bajwa Coag (PPP) [Time]12.0 eErdcoo73.5-14.2MercJohnson Memorial HospitalComment on above:Performed By: #### CBC, PT, CP #### [address] [place] [address] Refuge Worker: Merlyn Bajwacone health women's hospitalINRon [id number] Coag (PPP) [Relative time]0.9 {INR}B[facility] IMMACULATE HOSPITALComment on above: Therapeutic Range: Moderate Anticoagulant Intensity: INR = 2.0-3.0 High Anticoagulant Intensity: INR = 2.5-3.5 PT Coag (PPP) [Time]12 sBON [facility] Cult,Bloodon [id number],BloodSpecimen Description .BLOOD Special Requests RT ARM 6ML Culture NO GROWTH 5 DAYS Report Status FINAL 01/18/2023[facility] SouthComment on above:Performed By: #### B12FOL, FEBC, LIVP #### [facility] [address] [place] [address] Refuge Worker: Vijay Larios MD #### AASMF #### [facility] [address] [place] [address] Refuge Worker: Matthew Elkins MDCult,BloodSpecimen Description .BLOOD Special Requests RT HAND 5ML Culture NO GROWTH 5 DAYS Report Status FINAL 01/18/2023NormalKettering Health Main CampusComment on above:Performed By: #### BC #### [facility] [address] [place], [place] [phone] Refuge Worker: Darleen Zarate Muscle Abon 05-52-2801Ehcoqj Muscle Ab7 UnitsNormal0-19K[facility] Health Main CampusComment on above:Result Comment: (NOTE) If F-Actin (Smooth Muscle) Antibody, IgG [...] suspicion for AIH is strong. Performed By: [employer] [address] [place] [address] Sales Expert: Eligio Sanders MD, PhDPerformed By: #### B12FOL, [facility], LIVP #### [facility] [address] [place] [phone] Refuge Worker: Vijay Larios MD #### AASMF #### [employer] [address] [place] [address] Refuge Worker: Darleen Tran Muscle Antibody Quanton [id number] Muscle Ab7B[facility] REG[facility] HOSPITAL COMPANYComment on above:(NOTE) If F-Actin (Smooth Muscle) Antibody, IgG is [...] suspicion for AIH is strong. Performed By: [employer] [address] [place] [id number] Sales Expert: Eligio Sanders MD, PhD [facility] Metabolic Pr/rfx MGon 69-80-4195Awticxn [Mass/Vol] 3.7 g/dLNormal3.5-5.2MLakewood Regional Medical CenterComment on above:Performed By: #### CMPX #### [facility] [address] [place] [address] Refuge Worker: Vijay Larios MDAlbumin/Glob Ratio1.3Vyhihn6.0-2.5K[facility] Health Main CampusComment on above:Performed By: #### CMPX #### [facility] [address] [place] [address] Refuge Worker: Scar Zaratekaline Cfri314 U/REskv37-291PqmxxKettering Health Main CampusComment on above:Result Comment: SPECIMEN SLIGHTLY HEMOLYZED, RESULTS MAY BE ADVERSELY AFFECTED.Performed By: #### CMPX #### [facility] [address] [place] [address] Refuge Worker: Vijay Larios MDALT [Catalytic activity/Vol]233 U/LHigh5-33K[facility] CampusComment on above:Result Comment: SPECIMEN SLIGHTLY HEMOLYZED, RESULTS MAY BE ADVERSELY AFFECTED.Performed By: #### CMPX #### [facility] [address] [place] [address] Refuge Worker: Vijay Larios MDAnion gap [Moles/Vol]10 mmol/LNormal9-17[facility] CampusComment on above:Performed By: #### CMPX #### [address] [address] Refuge Worker: Vijay Larios MDAST [Catalytic activity/Vol]302 U/LHigh<32MerPatton State HospitalComment on above:Result Comment: SPECIMEN SLIGHTLY HEMOLYZED, RESULTS MAY BE ADVERSELY AFFECTED.Performed By: #### CMPX #### [address] [address] Refuge Worker: Vijay Larios MDBilirubin [Mass/Vol]1.3 mg/dLHigh0.3-1.2MLakewood Regional Medical CenterComment on above:Performed By: #### CMPX #### [address] [address] Refuge Worker: Vijay Larios MDCalcium [Mass/Vol]8.6 mg/dLNormal8.6-10.4K[facility] Main CampusComment on above:Performed By: #### CMPX #### [address] [address] Refuge Worker: Vijay Larios MDChloride [Moles/Vol]97 mmol/ZZyc62-507UtbgxKettering Health Main CampusComment on above:Performed By: #### CMPX #### [facility] [address] [place] [address] Refuge Worker: Vijay Larios MDCO2 [Moles/Vol]25 mmol/RNqhfkv13-50XjefqKettering Health Main CampusComment on above:Performed By: #### CMPX #### [facility] [address] [place] [address] Refuge Worker: JENARO Zaratereatinine [Mass/Vol]0.43 mg/dLLow0.50-0.90K[facility] Health Main CampusComment on above:Performed By: #### CMPX #### [place] [address] Refuge Worker: Vijay Larios MDGFR/1.73 sq M.predicted among non-blacks MDRD (S/P/Bld) [Vol rate/Area]mL/min/{1.73_m2}Normal>60K[facility] Health [facility] CampusComment on above:Result Comment: These results are not intended for [...] or following therapy that affects renal tubular secretion.Performed By: #### CMPX #### [facility] [address] [place] [address] Refuge Worker: Vijay Larios MDGlucose [Mass/Vol]114 mg/lKQuxi05-18XbbgdLakewood Regional Medical CenterComment on above:Performed By: #### CMPX #### [place] [address] Refuge Worker: Vijay Larios MDPotassium [Moles/Vol]4.7 mmol/LNormal3.7-5.3 [facility] CampusComment on above:Result Comment: SPECIMEN SLIGHTLY HEMOLYZED, RESULTS MAY BE ADVERSELY AFFECTED.Performed By: #### CMPX #### [facility] [address] [place] [address] Refuge Worker: Vijay Larios MDProtein [Mass/Vol]6.7 g/dLNormal6.4-8.3MLakewood Regional Medical CenterComment on above:Performed By: #### CMPX #### [address] [place] [address] Refuge Worker: NORBERT Zarateodium [Moles/Vol]132 mmol/NOqu087-334QazakKettering Health Main CampusComment on above:Performed By: #### CMPX #### [facility] [address] [place] [address] Refuge Worker: Vijay Larios MDUrea nitrogen [Mass/Vol]7 mg/dLNormal6-20[facility] CampusComment on above:Performed By: #### CMPX #### [facility] [address] [place] [address] Refuge Worker: JENARO Zraateomprehensive Metabolic Panel w/ Reflex to MGon 65-86-2678Ykzebjw [Mass/Vol]3.7 g/dL3.5 - 5.2 g/dLBON [facility] COMPANY Albumin/Globulin [Mass ratio]1.2 {ratio}1.0 - 2.5[facility] [place] [facility] COMMUNITY HOSPITALALP [Catalytic activity/Vol]274 U/LHigh35 - 104 U/LBON [facility]ITAL COMPANYComment on above:SPECIMEN SLIGHTLY HEMOLYZED, RESULTS MAY BE ADVERSELY AFFECTED.ALT [Catalytic activity/Vol]233 U/LHigh5 - 33 U/LBON [facility] COMPANYComment on above:SPECIMEN SLIGHTLY HEMOLYZED, RESULTS MAY BE ADVERSELY AFFECTED.Anion gap [Moles/Vol]10 mmol/L9 - 17 mmol/LBON [facility] SIFTSORT.COM HEALTHAST [Catalytic activity/Vol]302 U/LHighNINF - 32 U/LBON [facility] SIFTSORT.COMSELECT MEDICAL SPECIALTY HOSPITAL - CINCINNATI NORTHComment on above: SPECIMEN SLIGHTLY HEMOLYZED, RESULTS MAY BE ADVERSELY AFFECTED.Bilirubin [Mass/Vol]1.3 mg/dLHigh0.3 - 1.2 mg/dLBON [facility] SIFTSORT.COM HEALTHCalcium [Mass/Vol] 8.6 mg/dL8.6 - 10.4 mg/dLBON [facility] Al[place]imer HEALTHChloride [Moles/Vol]97 mmol/L Low98 - 107 mmol/LBON [facility] SIFTSORT.COM HEALTHCO2 [Moles/Vol]25 mmol/L20 - 31 mmol/L BON SECSELECT MEDICAL SPECIALTY HOSPITAL - CINCINNATICreatinine [Mass/Vol]0.43 mg/dLLow0.50 - 0.90 mg/dLBON REGENCY HOSPITAL COMPANYGFR/1.73 sq M.predicted MDRD (S/P/Bld) [Vol rate/Area]- YESENIAF KRISH [facility] on above: These results are not intended [...] therapy that affects renal tubular secretion. Glucose [Mass/Vol]114 mg/vRVtey88 - 99 mg/dLBON [facility]ENC[facility] COMPANY Interpretation and review of laboratory resultsAbnormalB[facility] COMPANY Potassium [Moles/Vol]4.7 mmol/L3.7 - 5.3 mmol/LBON [facility] on above:SPECIMEN SLIGHTLY HEMOLYZED, RESULTS MAY BE ADVERSELY AFFECTED.Protein [Mass/Vol]6.7 g/dL6.4 - 8.3 g/dLBON REGENCY HOSPITAL COMPANYSodium [Moles/Vol]132 mmol/DCog343 - 144 mmol/LBON [facility]ITAL COMPANYUrea nitrogen [Mass/Vol]7 mg/dL 6 - 20 mg/dLBON [facility] HOSPITALUS ABDOMEN LIMITEDon [id number] ABDOMEN LIMITEDEXAMINATION: RIGHT UPPER QUADRANT ULTRASOUND 01/14/2023 10:32 am [...] Signed by: Ryne Ny MD 01/15/23 Final resultNormalMercy Palomar Medical CenterUS ABDOMEN LIMITED Specify organ? LIVER, GALLBLADDER, PANCREAS, SPLEENon [id number]: RIGHT UPPER QUADRANT ULTRASOUND 01/14/2023 10:32 am [...] normal size measuring 11 cm in length. [facility] Ryne Bowers MD - 01/15/2023 EXAMINATION: RIGHT UPPER QUADRANT [...] can be considered. No cholelithiasis. Liver steatosis. [facility] Baitianshi Phone: us ABDOMEN LIMITED Specify organ? LIVER, GALLBLADDER, PANCREAS, SPLEENOrdered By: Ryne Ny on [id number] Baitianshi Phone: ANA SCREEN WITH REFLEXon [id number] double strand IgG IA Ql (S)NINFBON CorvilComment on above: Reference Range: <10.0 Negative 10.0-15.0 Equivocal >15.0 Positive Nuclear Ab IA Ql (S)NegativeNEGATIVEBANNER REHABILITATION HOSPITAL WEST Corviluclear IgG IA (S) [Ratio]0.2 U/mLNINF - 0.7 U/mLGROVER MEMORIAL HOSPITALZelos TherapeuticsComment on above: Reference Range: <0.7 Negative 0.7-1.0 Equivocal >1.0 Positive SELINA Screen includes U1RNP,RNP70,Sm,Ro(SS-A),La(SS-B),CENP,Scl-70,Yaz-1 DANIELLA Screen w/reflexon [id number] ScreenNegativeNormalNEGMercy Palomar Medical CenterComment on above:Performed By: #### JATINDER NORIEGA UAX #### [address] [place] [phone] Refuge Worker: Alejandro Zarate-dsDNA<0.5Normal<10.0MerPatton State HospitalComment on above:Result Comment: Reference Range: <10.0 Negative 10.0-15.0 Equivocal >15.0 PositivePerformed By: #### JATINDER NORIEGA UAX #### [address] [place] [address] [phone] Refuge Worker: AMBAR Zarate Screen0.2 U/mLNormal<0.7[facility] Main CampusComment on above:Result Comment: Reference Range: <0.7 Negative 0.7-1.0 Equivocal >1.0 Positive SELINA Screen includes U1RNP,RNP70,Sm,Ro(SS-A),La(SS-B),CENP,Scl-70,Yaz-1Performed By: #### JATINDER NORIEGA UAX #### [address] [place] [address] Refuge Worker: Alejandro Zarate-Mitochondrial Abon 35-91-9530Rurn- Mitochondrial Ab1.1 U/mLNormal0.0-4.0K[facility] Main CampusComment on above:Result Comment: Reference Range: <4.0 Negative 4.0-6.0 Equivocal >6.0 Positive When results are Equivocal, it is recommended to retest after 8-12 weeks. Performed By: #### JATINDER NORIEGA UAX #### [address] [place] [address] Refuge Worker: Vijay Larios MDB12/Folate Panelon 91-58-0499Rozpzlhno (Vitamin B12) [Mass/Vol]852 pg/pGGcjlwf133-6440GlwfrPatton State HospitalComment on above:Performed By: #### B12FODelmis FEBC, LIVP #### [address] [place] [address] Refuge Worker: Vijay Larios MD #### AASMF #### [facility] [address] [place] [address] Refuge Worker: Matthew Elkins MDFolic Acid12.5 ng/mLNormal>4.8MerPatton State HospitalComment on above:Performed By: #### B12FOL, FEBC, LIVP #### [employer] [employer] [facility] [address] [place] [address] Refuge Worker: Vijay Larios MD #### AASMF #### [facility] [address] [place] [address] Refuge Worker: Matthew Elkins MDHepatic Function Panelon 70-47-7598Gtrjfyz [Mass/Vol]3.5 g/dL3.5 - 5.2 g/dLBON [facility] HEALTHAlbumin/Globulin [Mass ratio]1.1 {ratio}1.0 - 2.5BON [facility] HEALTHALP [Catalytic activity/Vol] 315 U/LHigh35 - 104 U/LBON [facility] HEALTHALT [Catalytic activity/Vol]288 U/LHigh5 - 33 U/LB[facility] HEALTHAST [Catalytic activity/Vol]469 U/LHigh NINF - 32 U/LB[facility] HEALTHBilirubin [Mass/Vol]1.9 mg/dLHigh0.3 - 1.2 mg/dLBON [facility] HEALTHBilirubin.direct [Mass/Vol]0.9 mg/dLHighNINF - 0.3 mg/dLBON [facility] HEALTHBilirubin.indirect [Mass/Vol]1 mg/dL0.0 - 1.0 mg/dL [facility] HEALTHInterpretation and review of laboratory resultsAbnormal B[facility] HOSPITALCanadian Corporate Coaching Group HEALTHProtein [Mass/Vol]6.6 g/dL6.4 - 8.3 g/dLBON [facility]ITAL HEALTHBON [facility] HEALTHIron Binding Cap.on 01-14-2023% Fe SaturationUnable to calculate due to low iron binding result.Govgwu29-34Gcxil Palomar Medical CenterComment on above:Performed By: #### B12FOL, FEBC, LIVP #### [address] [place] [address] Refuge Worker: Vijay Larios MD #### AASMF #### [facility] [address] [place] [address] Refuge Worker: Matthew Elkins MDTotal Fe Binding CapUnable to calculate due to low iron binding result.Fhnzrq200-782Tdipk [facility]om[facility] Medical CenterComment on above:Performed By: #### B12FOL, FEBC, LIVP #### [facility] [place], [place] [phone] Refuge Worker: Vijay Larios MD #### AASMF #### [facility] [address] [place], [place] [id number] Refuge Worker: Matthew Elkins MDUnbound Fe Bind Cap<01Rjf698-299JpeigKettering Health Main CampusComment on above:Performed By: #### B12FOL, FEBC, LIVP #### [facility] [address] [place] [id number] Refuge Worker: Vijay Larios MD #### AASMF #### [facility] [address] [place], [place] [id number] Refuge Worker: Matthew Elkins MDIron [Mass/Vol]251 ug/[id number] Health Main CampusComment on above:Performed By: #### B12FOL, FEBC, LIVP #### [facility] [address] [place] [phone] Refuge Worker: Vijay Larios MD #### AASMF #### [facility] [address] [place], [place] [id number] Refuge Worker: Vandana Tran and TIBAtrium Health Union [phone] and review of laboratory resultsAbnormalBON SECOURS [facility] HEALTHIron [Mass/Vol]251 ug/lIEscu66 - 145 ug/dLBON SECOTHELLO COMMUNITY HOSPITALY HEALTHIron binding capacity [Mass/Vol] Unable to calculate due to low iron binding result.250 - 450 ug/dLBON SECOURS MERCY HEALTHIron SaturationUnable to calculate due to low iron binding result.20 - 55 %[facility] HEALTHY HEALTHUIBCug/cQBqa430 - 347 ug/dLBON SECOURS UC HEALTHY HEALTHBON SECOURS UC HEALTHY HEALTHLiver Profileon [id number] [Mass/Vol]3.5 g/dLNormal3.5-5.2Mer[facility]omar Medical CenterComment on above:Performed By: #### B12FOL, FEBC, LIVP #### [facility] [place] [address] Refuge Worker: Viajy Larios MD #### AASMF #### [facility] [address] [place] [address] Refuge Worker: Matthew Elkins MDAlbumin/Glob Ratio1.6Vslljb0.0-2.5[facility] Main CampusComment on above:Performed By: #### B12FOL, FEBC, LIVP #### [facility] [address] [place] [address] Refuge Worker: Vijay Larios MD #### AASMF #### [facility] [address] [place] [address] Refuge Worker: Srinath Tran Rwvm084 U/KBobp89-181LtaafKettering Health Main CampusComment on above:Performed By: #### B12FOL, FEBC, LIVP #### [facility] [address] [place] [address] [phone] Refuge Worker: Vijay Larios MD #### AASMF #### [facility] [address] [place] [address] Refuge Worker: Matthew Elkins MDALT [Catalytic activity/Vol]288 U/LHigh5-33[facility] CampusComment on above:Performed By: #### B12FOL, FEBC, LIVP #### [facility] [address] [place] [address] Refuge Worker: Vijay Larios MD #### AASMF #### [facility] [address] [place] [address] Refuge Worker: Matthew Elkins MDAST [Catalytic activity/Vol]469 U/LHigh<32[facility] Main CampusComment on above:Performed By: #### B12FOL, FEBC, LIVP #### [facility] [address] [place] [address] Refuge Worker: Vijay Larios MD #### AASMF #### [facility] [address] [place], [place] [phone] Refuge Worker: Matthew Elkins MDBilirubin [Mass/Vol]1.9 mg/dLHigh0.3-1.2MLakewood Regional Medical CenterComment on above:Performed By: #### B12FOL, FEBC, LIVP #### [facility] [address] [place] [address] Refuge Worker: Vijay Larios MD #### AASMF #### [facility] [address] [place] [address] [phone] Refuge Worker: Matthew Elkins MDBilirubin, Indirect1.0 mg/dLNormal0.0-1.0[facility] Main CampusComment on above:Performed By: #### B12FOL, FEBC, LIVP #### [facility] [address] [place] [address] [phone] Refuge Worker: Vijay Larios MD #### AASMF #### [facility] [address] [place] [address] Refuge Worker: Matthew Elkins MDBilirubin.indirect [Mass/Vol]0.9 mg/dLHigh<0.3 [facility] CampusComment on above:Performed By: #### B12FOL, FEBC, LIVP #### [facility] [address] [place] [address] [phone] Refuge Worker: Vijay Larios MD #### AASMF #### [facility] [address] [place], [place] [phone] Refuge Worker: Matthew Elkins MDProtein [Mass/Vol]6.6 g/dLNormal6.4-8.3MLakewood Regional Medical CenterComment on above:Performed By: #### B12FOL, FEBC, LIVP #### [address] [place], [place] [phone] Refuge Worker: Vijay Larios MD #### AASMF #### [facility] [address] [place] [address] Refuge Worker: Matthew Elkins MDMITOCHONDRIAL ANTIBODIES, M2, IGGon 01-14-2023 Mitochondrial Ab1.1 U/mL0.0 - 4.0 U/mLBON SECOURS MARY IMMACULATE HOSPITALComment on above: Reference Range: <4.0 Negative 4.0-6.0 Equivocal >6.0 Positive When results are Equivocal, it is recommended to retest after 8-12 weeks. No Panel Informationon [id number] [facility]ELES COMMUNITY HOSPITALClrTouch ABDOMEN LIMITED Specify organ? LIVER, GALLBLADDER, PANCREAS, SPLEENon 02-15-8514Nxposuice Study observation (narrative)[facility] GLSS Work Phone: Vitamin B12 & Folateon 21-02-7297Utmmfqgkp (Vitamin B12) [Mass/Vol]852 pg/mL232 - 1245 pg/mLBON SECOURS MARY IMMACULATE HOSPITALFolate [Mass/Vol]12.5 ng/mL4.8 - PINF ng/mLNORTON COMMUNITY HOSPITALAPTTon 09-32-4071eRQW Coag (Bld) [Time]23.0 zEifaaw53.5-30.5K[facility] Main CampusComment on above:Result Comment: IV Heparin Therapy Range: 48.6-77.8Performed By: #### LEANN, UMICAO, UAX #### [address] [place] [address] Refuge Worker: Vijay Larios MDaPTT Coag (Bld) [Time]23.0 sBON REGENCY HOSPITAL COMPANYComformerly [facility] on above: IV Heparin Therapy Range: 48.6-77.8 Acetaminophenon 65-07-9763Pbnafqaxcalmc [Mass/Vol]ug/gKJld87-79UwrkvKettering Health Main CampusComment on above:Performed By: #### JATINDER NORIEGA, UAX #### [facility] [address] [place], [place] [phone] Refuge Worker: Sabrina Zarate-1-Antitrypsinon 01-13-2023 Tjymi-1-Hzuumfkkvfq255 mg/zNDfsojf75-821HgogxKettering Health Main CampusComment on above:Performed By: #### JATINDER NORIEGA, UAX #### [facility] [address] [place], [place] [phone] Refuge Worker: Sabrina Zarate 1 antitrypsin [Mass/Vol]125 mg/dL90 - 200 mg/dLBON REGENCY HOSPITAL COMPANYCBC with Auto Differentialon [id number] Eos #[facility]OSPITAL COMPANYAbsolute Immature GranulocyteB[facility] REG[facility]OSPITAL COMPANY Absolute Lymph #1.42B[facility]OSPITAL COMPANYAbsolute Bent #0.28B[facility]OS[facility]ITAL COMPANYBasophils AbsoluteBON REGENCY HOSPITAL COMPANYBasophils/100 WBC (Bld)1 %0 - 2 %BON SEC[facility] M[facility] IMMACULATE HOSPITALEosinophils/100 WBC (Bld)0 %Low1 - 4 %B[facility] M[facility] IMMACULATE HOSPITALHematocrit (Bld) [Volume fraction]31.1 %Low36.3 - 47.1 %B[facility] M[facility] IMMACULATE HOSPITALHemoglobin (Bld) [Mass/Vol]10.4 g/dLLow11.9 - 15.1 g/dLBON REGENCY HOSPITAL COMPANYImmature granulocytes/100 WBC (Bld)0 %0[facility] Interpretation and review of laboratory resultsAbnormalB[facility] REGENCY HOSPITAL COMPANY Lymphocytes/100 WBC (Bld)32 %24 - 43 %BON [facility] MEMORIALH (RBC) [Entitic mass]35.4 rfGlyy65.2 - 33.5 pgBON KETTERING HEALTH GREENE MEMORIALHC (RBC) [Mass/Vol]33.4 g/dL28.4 - 34.8 g/dLBON KETTERING HEALTH GREENE MEMORIALV (RBC) [Entitic vol]105.8 fLHigh 82.6 - 102.9 fLBON SECOURS MARY IMMACULATE HOSPITALMonocytes/100 WBC (Bld)6 %3 - 12 %B[facility] IMMACULATE HOSPITALNRBC Automated0.00.0 per 100 WBCBON SECOURS M[facility] IMM[facility]ULATE [facility]OS[facility]ITAL Platelet distribution width (Bld) [Ratio]14.6 %High11.8 - 14.4 %B[facility] IMMACULATE HOSPITALPlatelet mean volume (Bld) [Entitic vol]8.9 fL8.1 - 13.5 fLBON SECOURS MARY IMMACULATE HOSPITALPlatelets (Bld) [#/Vol]100 10*3/uLLowBON REGENCY HOSPITAL COMPANYRBC (Bld) [#/Vol]2.94 10*6/uLLow3.95 - 5.11 m/uLBON SECOURS MARY IMMACULATE HOSPITAL RBC (Bld) [#/Vol]ANISOCYTOSIS PRESENTBON SECOURS MARY IMMACULATE HOSPITALComment on above: MACROCYTOSIS PRESENTSegmented neutrophils/100 WBC (Bld)61 %36 - 65 %B[facility] SEC[facility] M[facility] IMMACULATE HOSPITALSegs Absolute2.70B[facility] REGENCY HOSPITAL COMPANYWBC (Bld) [#/Vol]4.4 10*3/uLBON REGENCY HOSPITAL COMPANYBON REGENC[facility] HOSPITAL COMPANYCBC with Diffon 18-13-1323Xih. Basophil<0.50Jnybdr4.00-0.20[facility] Comment on above:Performed By: #### JATINDER NORIEGA, UAX #### [address] [place], [place] [phone] Refuge Worker: Cynthia Zarate. Eosinophil<0.95Cflphi9.00-0.44MerPatton State HospitalComment on above:Performed By: #### LEANNJATINDER Adorno, UAX #### [address] [place] [address] Refuge Worker: Cynthia Zarate.Imm.Granulocyte<0.67Qasrtq2.00-0.30[facility] Main CampusComment on above:Performed By: #### LEANNJATINDER, UAX #### [address] [address] Refuge Worker: Cynthia Zarate.Neutrophil (Seg)2.70 k/uLNormal1.50-8.10 [facility] Main CampusComment on above:Performed By: #### JATINDER NORIEGA, UAX #### [address] [address] Refuge Worker: Vijay Larios MDBasophils/100 WBC (Bld)1 %Normal0-2MLakewood Regional Medical CenterComment on above:Performed By: #### JATINDER NORIEGA UAX #### [address] [address] Refuge Worker: Vijay Larios MDEosinophils/100 WBC (Bld)0 %Low1-4[facility] Main CampusComment on above:Performed By: #### JATINDER NORIEGA, UAX #### [facility] [address] [place] [address] Refuge Worker: Vijay Larios MDErythrocyte distribution width (RBC) [Ratio]14.6 %High11.8-14.4[facility] CampusComment on above:Performed By: #### JATINDER NORIEGA, UAX #### [address] [address] Refuge Worker: Vijay Larios MDHematocrit (Bld) [Volume fraction]31.1 %Low 36.3-47.1MLakewood Regional Medical CenterComment on above:Performed By: #### JATINDER NORIEGA, UAX #### [facility] [address] [place] [address] Refuge Worker: Vijay Larios MDHemoglobin (Bld) [Mass/Vol]10.4 g/dLLow11.9-15.1 [facility] CampusComment on above:Performed By: #### LEANN, UMICAO, UAX #### [facility] [address] [place] [address] Refuge Worker: Mary Zarate granulocytes/100 WBC (Bld)0 %Normal0 [facility] CampusComment on above:Performed By: #### JATINDER NORIEGA, UAX #### [facility] [address] [place] [address] Refuge Worker: Callum Zaratemphocytes (Bld) [#/Vol]1.42 10*3/uLNormal 1.10-3.70[facility] CampusComment on above:Performed By: #### JATINDER NORIEGA, UAX #### [facility] [address] [place] [address] Refuge Worker: Callum Zaratemphocytes/100 WBC (Bld)32 %Npoelg64-34PysueKettering Health Main CampusComment on above:Performed By: #### JATINDER NORIEGA, UAX #### [facility] [address] [place] [address] Refuge Worker: MIRELLA ZarateCH (RBC) [Entitic mass]35.4 idRpii36.2-33.5 [facility] CampusComment on above:Performed By: #### JATINDER NORIEGA, UAX #### [facility] [address] [place] [address] Refuge Worker: MIRELLA ZarateCHC (RBC) [Mass/Vol]33.4 g/uOYsxtmk70.4-34.8 [facility] CampusComment on above:Performed By: #### JATINDER NORIEGA, UAX #### [facility] [address] [place] [address] Refuge Worker: MIRELLA ZarateCV (RBC) [Entitic vol]105.8 aOTbme43.6-102.9 [facility] CampusComment on above:Performed By: #### JATINDER NORIEGA, UAX #### [facility] [address] [place] [address] Refuge Worker: Vijay Larios MDMonocytes (Bld) [#/Vol]0.28 10*3/uLNormal 0.10-1.20[facility] CampusComment on above:Performed By: #### JATINDER NORIEGA, UAX #### [facility] [address] [place] [address] Refuge Worker: MIRELLA Zarateonocytes/100 WBC (Bld)6 %Normal3-12[facility] CampusComment on above:Performed By: #### JATINDER NORIEGA, UAX #### [address] [address] Refuge Worker: Mitesh Zarateutrophil (Seg)61 %Hhsavx79-96JrcxwKettering Health Main CampusComment on above:Performed By: #### JATINDER NORIEGA, UAX #### [facility] [address] [place] [address] Refuge Worker: Vijay Larios MDNRBC Automated0.0 per 100 WBCNormal0.0[facility] CampusComment on above:Performed By: #### JATINDER NORIEGA, UAX #### [facility] [address] [place] [address] Refuge Worker: OTTO Zaratelatelet mean volume (Bld) [Entitic vol]8.9 fL Normal8.1-13.5[facility] CampusComment on above:Performed By: #### JATINDER NORIEGA, UAX #### [facility] [address] [place] [address] Refuge Worker: OTTO Zaratelatelets (Bld) [#/Vol]100 10*3/cLDqa703-723 [facility] CampusComment on above:Performed By: #### JATINDER NORIEGA UAX #### [address] [address] Refuge Worker: VALDEZ Zarate (Bld) [#/Vol]2.94 10*6/uLLow3.95-5.11[facility] CampusComment on above:Performed By: #### JATINDER NORIEGA, UAX #### [facility] [address] [place] [address] Refuge Worker: VALDEZ Zarate morphology finding Nom (Bld)ANISOCYTOSIS PRESENTNormalKettering Health Main CampusComment on above:Result Comment: MACROCYTOSIS PRESENTPerformed By: #### JATINDER NORIEGA UAX #### [address] [address] Refuge Worker: DAMEON Zarate (Bld) [#/Vol]4.4 10*3/uLNormal3.5-11.3MLakewood Regional Medical CenterComment on above:Performed By: #### JATINDER NORIEGA, UAX #### [address] [address] Refuge Worker: MDAbs. Elliot Basophil0.03 k/uLNormal0.00-0.20[facility] Main CampusComment on above:Performed By: #### ALCB, MG, ACET, CP, CDP, TRIC, SALI, HCG #### [facility] [address] [place] [address] Refuge Worker: Cynthia Zarate. Eosinophil<0.50Emdaco2.00-0.44[facility] Main CampusComment on above:Performed By: #### ALCB, MG, ACET, CP, CDP, TRIC, SALI, HCG #### [place] [address] Refuge Worker: MDAbs. ElliotImm.Granulocyte<0.20Jmypup1.00-0.30[facility] Main CampusComment on above:Performed By: #### ALCB, MG, ACET, CP, CDP, TRIC, SALI, HCG #### [place] [address] Refuge Worker: Cynthia Zarate.Neutrophil (Seg)3.24 k/uLNormal1.50-8.10 [facility] CampusComment on above:Performed By: #### ALCB, MG, ACET, CP, CDP, TRIC, SALI, HCG #### [place] [address] Refuge Worker: Vijay Larios MDBasophils/100 WBC (Bld)1 %Normal0-2MLakewood Regional Medical CenterComment on above:Performed By: #### ALCB, MG, ACET, CP, CDP, TRIC, SALI, HCG #### [place] [address] Refuge Worker: Vijay Larios MDEosinophils/100 WBC (Bld)0 %Low1-4[facility] CampusComment on above:Performed By: #### ALCB, MG, ACET, CP, CDP, TRIC, SALI, HCG #### [place] [address] Refuge Worker: Vijay Larios MDErythrocyte distribution width (RBC) [Ratio]14.8 %High11.8-14.4[facility] CampusComment on above:Performed By: #### ALCB, MG, ACET, CP, CDP, TRIC, SALI, HCG #### [place] [address] Refuge Worker: Vijay Larios MDHematocrit (Bld) [Volume fraction]43.7 %Normal 36.3-47.1MLakewood Regional Medical CenterComment on above:Performed By: #### ALCB, MG, ACET, CP, CDP, TRIC, SALI, HCG #### [facility] [address] [place] [address] Refuge Worker: Vijay Larios MDHemoglobin (Bld) [Mass/Vol]14.4 g/dLNormal 11.9-15.1MLakewood Regional Medical CenterComment on above:Performed By: #### ALCB, MG, ACET, CP, CDP, TRIC, SALI, HCG #### [place] [address] Refuge Worker: Melodie Zaratemature granulocytes/100 WBC (Bld)0 %Normal0 [facility] CampusComment on above:Performed By: #### ALCB, MG, ACET, CP, CDP, TRIC, SALI, HCG #### [facility] [address] [place] [address] Refuge Worker: Vijay Larios MDLymphocytes (Bld) [#/Vol]1.26 10*3/uLNormal 1.10-3.70[facility] CampusComment on above:Performed By: #### ALCB, MG, ACET, CP, CDP, TRIC, SALI, HCG #### [facility] [address] [place] [address] Refuge Worker: Callum Zaratemphocytes/100 WBC (Bld)27 %Bctvrx33-27ZmgckKettering Health Main CampusComment on above:Performed By: #### ALCB, MG, ACET, CP, CDP, TRIC, SALI, HCG #### [facility] [address] [place] [address] Refuge Worker: MIRELLA ZarateCH (RBC) [Entitic mass]35.3 snGxir60.2-33.5 [facility] CampusComment on above:Performed By: #### ALCB, MG, ACET, CP, CDP, TRIC, SALI, HCG #### [facility] [address] [place] [address] Refuge Worker: MIRELLA ZarateCHC (RBC) [Mass/Vol]33.0 g/qRBzbsyl43.4-34.8 [facility] CampusComment on above:Performed By: #### ALCB, MG, ACET, CP, CDP, TRIC, SALI, HCG #### [facility] [address] [place] [address] Refuge Worker: MIRELLA ZarateCV (RBC) [Entitic vol]107.1 yCWnqh95.6-102.9 [facility] CampusComment on above:Performed By: #### ALCB, MG, ACET, CP, CDP, TRIC, SALI, HCG #### [place] [address] Refuge Worker: MIRELLA Zarateonocytes (Bld) [#/Vol]0.19 10*3/uLNormal 0.10-1.20[facility] CampusComment on above:Performed By: #### ALCB, MG, ACET, CP, CDP, TRIC, SALI, HCG #### [facility] [address] [place] [address] Refuge Worker: MIRELLA Zarateonocytes/100 WBC (Bld)4 %Normal3-12[facility] CampusComment on above:Performed By: #### ALCB, MG, ACET, CP, CDP, TRIC, SALI, HCG #### [address] [address] Refuge Worker: Vijay Larios MDNeutrophil (Seg)68 %Bvaw98-83XhfifKettering Health Main CampusComment on above:Performed By: #### ALCB, MG, ACET, CP, CDP, TRIC, SALI, HCG #### [facility] [address] [place] [address] Refuge Worker: ANABELLA Zarate Automated0.0 per 100 WBCNormal0.0[facility] CampusComment on above:Performed By: #### ALCB, MG, ACET, CP, CDP, TRIC, SALI, HCG #### [facility] [address] [place] [address] Refuge Worker: Emily Zarate mean volume (Bld) [Entitic vol]9.6 fL Normal8.1-13.5[facility] CampusComment on above:Performed By: #### ALCB, MG, ACET, CP, CDP, TRIC, SALI, HCG #### [place] [address] Refuge Worker: Samaria Zarate (Bld) [#/Vol]150 10*3/eEWrnmzl449-852 [facility] CampusComment on above:Performed By: #### ALCB, MG, ACET, CP, CDP, TRIC, SALI, HCG #### [place] [address] Refuge Worker: VALDEZ Zarate (Bld) [#/Vol]4.08 10*6/uLNormal3.95-5.11 [facility] CampusComment on above:Performed By: #### ALCB, MG, ACET, CP, CDP, TRIC, SALI, HCG #### [facility] [address] [place] [address] Refuge Worker: VALDEZ Zarate morphology finding Nom (Bld)ANISOCYTOSIS PRESENTNormalKettering Health Main CampusComment on above:Result Comment: MACROCYTOSIS PRESENTPerformed By: #### ALCB, MG, ACET, CP, CDP, TRIC, SALI, HCG #### [facility] [address] [place] [address] Refuge Worker: DAMEON Zarate (Bld) [#/Vol]4.8 10*3/uLNormal3.5-11.3[facility] CenterComment on above:Performed By: #### ALCB, MG, ACET, CP, CDP, TRIC, SALI, HCG #### [facility] [address] [place] [address] [phone] Refuge Worker: Seth Zraateium, Ionicon 14-02-8676Myjrrun [Moles/Vol] 1.04 mmol/LLow1.13-1.33[facility] CampusComment on above: Performed By: #### JATINDER NORIEGA UAX #### [facility] [address] [place] [address] Refuge Worker: JENARO Zaratealcium, Ionizedon 51-96-0738Ixkuoes.ionized (Bld) [Moles/Vol]1.04 mmol/LLow1.13 - 1.33 mmol/LBON [facility] COMPANY Interpretation and review of laboratory resultsAbnormalB[facility] Ceruloplasminon 89-29-8600Zerxsecrviyxn38 mg/oDBjvztv50-21DhfdsKettering Health Main CampusComment on above:Performed By: #### JATINDER NORIEGA UAX #### [facility] [address] [place] [address] [phone] Refuge Worker: JENARO Zarateeruloplasmin [Mass/Vol]19 mg/dL16 - 45 mg/dLBON REGENCY HOSPITAL COMPANYComp Metabolic Pr/rfx MGon 86-08-6499Uydkg gap [Moles/Vol] 21 mmol/LHigh9-17[facility] CampusComment on above:Performed By: #### JATINDER NORIEGA UAX #### [facility] [address] [place] [address] Refuge Worker: Vijay Larios MDSodium [Moles/Vol]133 mmol/CNhx476-008UbadbKettering Health Main CampusComment on above:Performed By: #### LEANNJATINDER Adorno, UAX #### [facility] [address] [place] [address] Refuge Worker: Vijay Larios MDAlbumin [Mass/Vol]3.1 g/dLLow3.5-5.2MLakewood Regional Medical CenterComment on above:Performed By: #### LEANNJATINDER Adorno, UAX #### [facility] [address] [place] [address] Refuge Worker: Vijay Larios MDAlbumin/Glob Ratio1.4Lmquwi1.0-2.5[facility] CampusComment on above:Performed By: #### JATINDER NORIEGA, UAX #### [facility] [address] [place] [address] Refuge Worker: Scar Zaratekaline Gmee301 U/AUkvs69-568HiovxKettering Health Main CampusComment on above:Performed By: #### JATINDER NORIEGA, UAX #### [facility] [address] [place] [address] Refuge Worker: Vijay Larios MDALT [Catalytic activity/Vol]322 U/LHigh5-33[facility] CampusComment on above:Performed By: #### JATINDER NORIEGA, UAX #### [facility] [address] [place] [address] Refuge Worker: Vijay Larios MDAST [Catalytic activity/Vol]655 U/LHigh<32[facility] CampusComment on above:Performed By: #### JATINDER NORIEGA, UAX #### [facility] [address] [place] [address] Refuge Worker: Vijay Larios MDBilirubin [Mass/Vol]1.5 mg/dLHigh0.3-1.2MLakewood Regional Medical CenterComment on above:Performed By: #### LEANNJATINDER Adorno, UAX #### [facility] [address] [place] [address] Refuge Worker: JENARO Zaratealcium [Mass/Vol]7.5 mg/dLLow8.6-10.4[facility] CampusComment on above:Performed By: #### LEANNJAH AdornoICAO, UAX #### [facility] [address] [place] [address] Refuge Worker: JENARO Zaratehloride [Moles/Vol]97 mmol/PHpt33-784JksctKettering Health Main CampusComment on above:Performed By: #### JATINDER NORIEGA, UAX #### [facility] [address] [place] [address] Refuge Worker: Vijay Larios MDCO2 [Moles/Vol]15 mmol/YYwj42-94LmaghKettering Health Main CampusComment on above:Performed By: #### JATINDER NORIEGA, UAX #### [facility] [address] [place] [address] Refuge Worker: JENARO Zaratereatinine [Mass/Vol]0.45 mg/dLLow0.50-0.90[facility] CampusComment on above:Performed By: #### JATINDER NORIEGA, UAX #### [facility] [address] [place] [address] Refuge Worker: Vijay Larios MDGFR/1.73 sq M.predicted among non-blacks MDRD (S/P/Bld) [Vol rate/Area]mL/min/{1.73_m2}Normal>60MerPatton State HospitalComment on above:Result Comment: These results are not intended for [...] or following therapy that affects renal tubular secretion.Performed By: #### JATINDER NORIEGA UAX #### [facility] [address] [place] [address] Refuge Worker: Vijay Larios MDGlucose [Mass/Vol]123 mg/hNFpei32-24TngyeLakewood Regional Medical CenterComment on above:Performed By: #### JATINDER NORIEGA UAX #### [place] [address] Refuge Worker: Vijay Larios MDPotassium [Moles/Vol]4.2 mmol/LNormal3.7-5.3 [facility] CampusComment on above:Performed By: #### JATINDER NORIEGA UAX #### [place] [address] Refuge Worker: Vijay Larios MDProtein [Mass/Vol]6.0 g/dLLow6.4-8.3MLakewood Regional Medical CenterComment on above:Performed By: #### JATINDER NORIEGA UAX #### [facility] [address] [place] [address] Refuge Worker: Vijay Larios MDUrea nitrogen [Mass/Vol]7 mg/dLNormal6-20[facility] CampusComment on above:Performed By: #### JATINDER NORIEGA UAX #### [place] [address] Refuge Worker: JENARO Zarateomp Metabolic Profon 44-65-3784EMP [Catalytic activity/Vol]988 U/LHigh<32[facility] CampusComment on above: Performed By: #### JATINDER NORIEGA UAX #### [place] [address] Refuge Worker: JENARO Zaratereatinine [Mass/Vol]0.44 mg/dLLow0.50-0.90[facility] CampusComment on above:Result Comment: ICTERIC SPECIMEN Performed By: #### JATINDER NORIEGA UAX #### [address] [place] [phone] Refuge Worker: Vijay Larios MDGFR/1.73 sq M.predicted among non-blacks MDRD (S/P/Bld) [Vol rate/Area]mL/min/{1.73_m2}Normal>60MerPatton State HospitalComment on above:Result Comment: These results are not intended for [...] or following therapy that affects renal tubular secretion.Performed By: #### JATINDER NORIEGA UAX #### [address] [place] [address] Refuge Worker: Vijay Larios MDAlbumin [Mass/Vol]4.5 g/dLNormal3.5-5.2MLakewood Regional Medical CenterComment on above:Performed By: #### JATINDER NORIEGA UAX #### [address] [place] [id number] Refuge Worker: Vijay Larios MDAlbumin/Glob Ratio1.0Vtocwt9.0-2.5[facility] Main CampusComment on above:Performed By: #### JATINDER NORIEGA UAX #### [address] [place] [id number] Refuge Worker: Scar Zaratekaline [id number] U/[id number] Health Main CampusComment on above:Performed By: #### JATINDER NORIEGA UAX #### [address] [place] [id number] Refuge Worker: Vijay Larios MDALT [Catalytic activity/Vol]495 U/LHigh5-33[facility] CampusComment on above:Performed By: #### JATINDER NORIEGA, UAX #### [facility] [address] [place] [address] 28241 Refuge Worker: Vijay Larios MDAnion gap [Moles/Vol]30 mmol/LHigh9-17K[facility]tering Health Main CampusComment on above:Performed By: #### JATINDER NORIEGA UAX #### [facility] [address] [place] [address] 84349 Refuge Worker: Vijay Larios MDBilirubin [Mass/Vol]2.6 mg/dLHigh0.3-1.2MLakewood Regional Medical CenterComment on above:Performed By: #### JATINDER NORIEGA UAX #### [facility] [address] [place] [address] 64584 Refuge Worker: Vijay Larios MDCalcium [Mass/Vol]8.7 mg/dLNormal8.6-10.4K[facility] Health Main CampusComment on above:Performed By: #### JATINDER NORIEGA, UAX #### [facility] [address] [place] [address] 26071 Refuge Worker: Vijay Larios MDChloride [Moles/Vol]96 mmol/CLox95-759MbbmgKettering Health Main CampusComment on above:Performed By: #### JATINDER NORIEGA UAX #### [facility] [address] [place] [address] 81204 Refuge Worker: Vijay Larios MDCO2 [Moles/Vol]12 mmol/YYib88-29ZeucqKettering Health Main CampusComment on above:Performed By: #### JATINDER NORIEGA, UAX #### [facility] [place] [address] [place] [address] 80405 Refuge Worker: Vijay Larios MDGlucose [Mass/Vol]59 mg/kWSqe80-33HfmwpLakewood Regional Medical CenterComment on above:Performed By: #### JATINDER NORIEGA, UAX #### [facility] [address] [place] [address] 76942 Refuge Worker: Vijay Larios MDPotassium [Moles/Vol]3.9 mmol/LNormal3.7-5.3 [facility] CampusComment on above:Performed By: #### JATINDER NORIEGA, UAX #### [facility] [address] [place] [address] 30288 Refuge Worker: Vijay Larios MDProtein [Mass/Vol]8.3 g/dLNormal6.4-8.3MLakewood Regional Medical CenterComment on above:Performed By: #### JATINDER NORIEGA, UAX #### [facility] [address] [place] [address] 16982 Refuge Worker: NORBERT Zarateodium [Moles/Vol]138 mmol/UUkafkw462-207UplxrKettering Health Main CampusComment on above:Performed By: #### JATINDER NORIEGA, UAX #### [facility] [address] [place] [address] 73661 Refuge Worker: Vijay Larios MDUrea nitrogen [Mass/Vol]8 mg/dLNormal6-20[facility] Main CampusComment on above:Performed By: #### JATINDER NORIEGA, UAX #### [facility] [place] [address] [place] [address] 99029 Refuge Worker: JENARO Zarateomprehensive Metabolic Panel w/ Reflex to MGon 71-03-1719Wrrmgwa [Mass/Vol]3.1 g/dLLow3.5 - 5.2 g/dLBON [facility] Albumin/Globulin [Mass ratio]1.1 {ratio}1.0 - 2.5BON SECWemoLab HEALTHALP [Catalytic activity/Vol]308 U/LHigh35 - 104 U/LBON SECWemoLab HEALTHALT [Catalytic activity/Vol]322 U/LHigh5 - 33 U/LBON SECOURS Metamark GeneticsAnion gap [Moles/Vol]21 mmol/LHigh9 - 17 mmol/LBON SECWemoLab HEALTHAST [Catalytic activity/Vol]655 U/LHighNINF - 32 U/LBON SECOURS Metamark GeneticsBilirubin [Mass/Vol]1.5 mg/dLHigh0.3 - 1.2 mg/dLBON [facility]INSCRIPTION [facility] Metamark GeneticsCalcium [Mass/Vol] 7.5 mg/dLLow8.6 - 10.4 mg/dLBON [facility]INS[facility] Metamark GeneticsChloride [Moles/Vol]97 mmol/LLow98 - 107 mmol/LBON SECWemoLab HEALTHCO2 [Moles/Vol]15 mmol/LLow20 - 31 mmol/LBON [facility] Metamark GeneticsCreatinine [Mass/Vol]0.45 mg/dLLow0.50 - 0.90 mg/dLBON [facility] EAST VALLEYZelos TherapeuticsGFR/1.73 sq M.predicted MDRD (S/P/Bld) [Vol rate/Area]- PINFBON ENC[facility] REHABIL[facility] HOSPITAL OF EAST VALLEYZelos TherapeuticsComment on above: These results are not intended [...] therapy that affects renal tubular secretion. Glucose [Mass/Vol]123 mg/lEVadk02 - 99 mg/dLBON [facility]OSPITAL OF EAST VALLEYZelos Therapeutics Interpretation and review of laboratory resultsAbnormalBON [facility] [employer] Potassium [Moles/Vol]4.2 mmol/L3.7 - 5.3 mmol/LBON SECWemoLab HEALTHProtein [Mass/Vol]6.0 g/dLLow6.4 - 8.3 g/dLBON SECZelos TherapeuticsSodium [Moles/Vol]133 mmol/NLwe049 - 144 mmol/LBON SECOURS MERCY HEALTHUrea nitrogen [Mass/Vol]7 mg/dL6 - 20 mg/dLBON SECOURS MERCY HEALTHBON [facility] MERCY HEALTHDRUG SCREEN MULTI URINEon 06-48-8547Cmpbyjtehuk Screen, UrNegativeNEGATIVEBON SECOURS MERCY HEALTHComment on above: (Positive cutoff 1000 ng/mL) Barbiturate Screen, UrPositiveAbnormalNEGATIVEBON SECOURS MERCY HEALTHComment on above: (Positive cutoff 200 ng/mL) Benzodiazepine Screen, UrineNegativeNEGATIVEBON SECOURS MERCY HEALTHComment on above: (Positive cutoff 200 ng/mL) Cannabinoid Scrn, UrPositiveAbnormalNEGATIVEBON SECOURS MERCY HEALTHComment on above: (Positive cutoff 50 ng/mL) Cocaine Metabolite, UrinePositiveAbnormalNEGATIVEBON SECOURS MERCY HEALTHComment on above: (Positive cutoff 300 ng/mL) Fentanyl, UrNegativeNEGATIVEBON SECOURS MERCY HEALTHComment on above: (Positive cutoff 5 ng/ml) Interpretation and review of laboratory resultsAbnormalB[facility] Methadone Screen, UrineNegativeNEGATIVEBON [facility] MERCY HEALTHComment on above: (Positive cutoff 300 ng/mL) Opiates, UrineNegativeNEGATIVEBON SECOURS MERCY HEALTHComment on above: (Positive cutoff 300 ng/mL) Oxycodone Screen, UrNegativeNEGATIVEBON SECOURS MERCY HEALTHComment on above: (Positive cutoff 100 ng/mL) Phencyclidine, UrineNegativeNEGATIVEBON SECOURS MERCY HEALTHComment on above: (Positive cutoff 25 ng/mL) Test InformationAssay provides medical screening only. The absence of expected drug(s) and/or metabolite(s) may indicate diluted or adulterated urine, limitations of testing or timing of collection.B[facility] MERCY HEALTHComment on above:Testing for legal purposes should be confirmed by another method. To request confirmation of test result, please call the lab within 7 days of sample submission. [facility] MERCY HEALTHDrug Scr, Abuse, Uron 31-11-1624Lzuodyhvtwv(s),Ur NegativeNormalNEGMercy Palomar Medical CenterComment on above:Result Comment: (Positive cutoff 1000 ng/mL)Performed By: #### LEANN, JATINDER, UAX #### [facility] [address] [place] [address] Refuge Worker: Vijay Larios MDBarbiturate(s),UrPositiveAbnormalNEGKettering Health Main CampusComment on above:Result Comment: (Positive cutoff 200 ng/mL)Performed By: #### LEANN, UMICAO, UAX #### [facility] [address] [place] [address] 90069 Refuge Worker: Vijay Larios MDBenzodiazepine(s)NegativeNormalNEGKettering Health Main CampusComment on above:Result Comment: (Positive cutoff 200 ng/mL)Performed By: #### LEANN, UMICAO, UAX #### [facility] [address] [place] [address] 02302 Refuge Worker: JENARO Zarateannabinoid(s),UrPositiveAbnormalNEGMerPatton State HospitalComment on above:Result Comment: (Positive cutoff 50 ng/mL)Performed By: #### LEANN, UMICAO, UAX #### [facility] [address] [place] [address] 69314 Refuge Worker: JENARO Zarateocaine MetabolitePositiveAbnormalNEGKettering Health Main CampusComment on above:Result Comment: (Positive cutoff 300 ng/mL)Performed By: #### LEANN, UMICAO, UAX #### [facility] [address] [place] [address] 64485 Refuge Worker: Vijay Larios MDFentanyl, UrineNegativeNormalNEGKettering Health Main CampusComment on above:Result Comment: (Positive cutoff 5 ng/ml)Performed By: #### LEANN, UMICAO, UAX #### [facility] [address] [place] [address] 17314 Refuge Worker: Vijay Larios MDInterpretive InfoAssay provides medical screening only. The absence of expected drug(s) and/orNormalMercy Strawberry Plains Medical CenterComment on above:Result Comment: metabolite(s) may indicate diluted or adulterated urine, limitations of testing or timing of collection. Testing for legal purposes should be confirmed by another method. To request confirmation of test result, please call the lab within 7 days of sample submission.Performed By: #### LEANN, UMICAO, UAX #### [address] [place] [address] 75438 Refuge Worker: MIRELLA Zarateethadone Ql (U)NegativeNormalNEGMerPatton State HospitalComment on above:Result Comment: (Positive cutoff 300 ng/mL)Performed By: #### LEANN, UMICAO, UAX #### [address] [place] [address] 50138 Refuge Worker: Vijay Larios MDOpiate(s), UrNegativermalNEGKettering Health Main CampusComment on above:Result Comment: (Positive cutoff 300 ng/mL)Performed By: #### LEANN, UMICAO, UAX #### [facility] [address] [place] [address] 41858 Refuge Worker: Vijay Larios MDOxycodone, UrineNegativeElginNEGKettering Health Main CampusComformerly [facility] on above:Result Comment: (Positive cutoff 100 ng/mL)Performed By: #### LEANN, UMICAO, UAX #### [facility] [address] [place] [address] 60804 Refuge Worker: Alicja Zaratecyclidine, UrNegativeNormalNEGKettering Health Main CampusComment on above:Result Comment: (Positive cutoff 25 ng/mL)Performed By: #### LEANN, UMICAO, UAX #### [facility] [address] [place] [address] 85481 Refuge Worker: ESTRELLA Zarate 12 LeadOrdered By: Marlyn Madrid on 94-99-0447Znpaar Vddc23HTEQHE SECZelos Therapeutics Work Phone: [phone] Gpso65iigzaziDVR [employer] Work Phone: [phone]-R Iulwdrna790 Denise [employer] Work Phone: [phone]-T Wdydhjgu614 Denise [employer] Work Phone: [phone] Pjxamfqp38 Denise [employer] Work Phone: [phone] Calculation (Bazett)492 Denise [employer] Work Phone: [phone] Vujv13bnimqgrKVF [employer] Work Phone: [phone] Acwg70ccwiysmHXIenModus Work Phone: [phone] Tnpe72TWUXOO Baitianshi Phone: [phone] [employer] Work Phone: [phone] 12 Leadon 42-91-9029Zesshu sinus rhythm Prolonged QT Abnormal ECG When compared with ECG of 21-SEP-2022 14:22, No significant change was foundUNM [facility] Marlyn Holt MD - 01/13/2023 Normal sinus rhythm Prolonged QT Abnormal ECG When compared with ECG of 21-SEP-2022 14:22, No significant change was found BON Baitianshi Phone: ethanolon 01-37-4077Hrxgmmu [Mass/Vol]36 mg/dLHighNINF - 10 mg/dLBON CorvilEthanol percent0.036 %HighNINF - 0.010 %BON CorvilEthanol Alcoholon 53-77-6290Lmmlwky [Mass/Vol]36 mg/dLHigh <10K[facility] Main CampusComment on above:Performed By: #### JATINDER NORIEGA UAX #### [address] [place] [address] Refuge Worker: Vijay Larios MDEthanol percent0.036 %High<0.010K[facility] Health Main CampusComment on above:Performed By: #### JATINDER NORIEGA, UAX #### [facility] [address] [place] [address] Refuge Worker: Vijay Larios MDEthanol [Mass/Vol]240 mg/dLHigh<10Mercy [facility]omar Medical CenterComment on above:Performed By: #### JATINDER NORIEGA, UAX #### [facility] [address] [place] [address] 25321 Refuge Worker: Vijay Larios MDEthanol percent0.240 %High<0.010Mer[facility]omar Medical CenterComment on above:Performed By: #### JATINDER NORIEGA UAX #### [facility] [address] [place] [address] 57931 Refuge Worker: Vijay Larios MDFerritinon 56-08-2409Oncfqwvi [Mass/Vol]884 ng/vVKjzo10-851Qtbtv [facility] Medical CenterComment on above:Performed By: #### JATINDER NORIEGA, UAX #### [facility] [address] [place] [address] 58651 Refuge Worker: Vijay Larios MDFerritin [Mass/Vol]884 ng/mCBpcj26 - 150 ng/mL [facility]OSP[facility] COMPANYHCG Screen, Bloodon 60-57-5754NDE Screen, BloodNegative NormalNEGKettering Health Main CampusComment on above:Result Comment: Specimens with hCG levels near the threshold of the test (25 mIU/mL) may give a negative or indeterminate result. In such cases, another test should be performed with a new specimen in 48-72 hours. If early is suspected clinically in this setting, correlation with quantitative serum b-hCG level is suggested. [address] has confirmed the use of plasma for this test. This has not been cleared or approved by the U.S. Food and Drug Administration. The FDA has determined that such clearance is not necessary.Performed By: #### JATINDER NORIEGA, UAX #### [facility] [address] [place] [address] 22833 Refuge Worker: Vijay Larios MDHemoglobin A1C 05-34-1304Ouyoenp [Mass/Vol]100 mg/dLSelect Medical Specialty Hospital - Columbus SouthComment on above:Result Comment: The ADA and AACC recommend providing the estimated average glucose result to permit better patient understanding of their HBA1c result.Performed By: #### JATINDER NORIEGA UAX #### [facility] [address] [place] [address] 85309 Refuge Worker: Vijay Larios MDHbA1c (Bld) [Mass fraction]5.1 %Normal4.0-6.0 [facility] CampusComment on above:Performed By: #### JATINDER NORIEGA UAX #### [facility] [address] [place] [address] 57850 Refuge Worker: Dionne Zarate glucose Estimated from glycated hemoglobin (Bld) [Mass/Vol]100 mg/dLBON REGENCY HOSPITAL COMPANYComment on above:The ADA and AACC recommend providing the estimated average glucose result to permit better patient understanding of their HBA1c result. HbA1c (Bld) [Mass fraction]5.1 %4.0 - 6.0 %[facility] 52-37-3694Mma A Ab,IgMNon-ReactiveNormMiami Valley HospitalComment on above:Performed By: #### JATINDER NORIEGA UAX #### [facility] [address] [place] [address] 26587 Refuge Worker: Jeri Zarate Core Ab,IgMNon-ReactiveSuburban Community Hospital & Brentwood HospitalComment on above:Performed By: #### JATINDER NORIEGA UAX #### [facility] [address] [place] [address] 76239 Refuge Worker: Jeri Zarate Surf AgNon-ReactiveSuburban Community Hospital & Brentwood HospitalComment on above:Performed By: #### JATINDER NORIEGA UAX #### [facility] [place], [place] [phone] Refuge Worker: Jeri Zarate AbReactiveAbVan Wert County HospitalComformerly [facility] on above:Result Comment: The hepatitis C procedure used in [...] PCR. Results reported to the appropriate Health DepartmentPerformed By: #### JATINDER NORIEGA UAX #### [address] [place] [address] [phone] Refuge Worker: Janette Zaratetis Panel, Acuteon 17-73-4227YKG IgM Ql (S)Non-ReactiveNONREACTIVEBON SECCmed MERCY HEALTHHBV core IgM Ql (S) Non-ReactiveNONREACTIVEBON SECOURS MERCY HEALTHHBV surface Ag Ql (S)Non-Reactive NONREACTIVEBON [facility]OURS MERCY HEALTHHCV Ab Ql (S)ReactiveAbnormalNONREACTIVEBON SECCmed [facility] HEALTHComment on above: The hepatitis C procedure used [...] Health Department Interpretation and review of laboratory resultsAbnormalBON SECOURS MERCY HEALTH BON SECOURS UC HEALTHY HEALTHLactate Dehydrogenaseon 11-41-8574OLB [Catalytic activity/Vol]345 U/JOnqg040-201KxiclKettering Health Main CampusComformerly [facility] on above: Performed By: #### JATINDER NORIEGA, UAX #### [facility] [facility] [address] [place] [address] [phone] Refuge Worker: Vijay Madoff, MDCholesterol in LDL [Mass/Vol]345 U/GUygc027 - 214 U/LBON [facility] GLSSInterpretation and review of laboratory results AbnormalBON REGENCY HOSPITAL COMPANYBON REGENCY HOSPITAL COMPANYLactic Acidon 01-13-2023 Lactic Acid,Whole Bl2.1 mmol/LNormal0.7-2.1[facility] Comment on above:Performed By: #### JATINDER NORIEGA UAX #### [address] [place] [address] Refuge Worker: Vijay Larios MDLactic Acid, Whole Blood2.1 mmol/L0.7 - 2.1 mmol/LBON [facility] SIFTSORT.COM GLSSLipid Panelon 85-60-3921Pqxrjspxpku [Mass/Vol]177 mg/dLNINF - 200 mg/dLBON REGENCY HOSPITAL COMPANYComment on above: Cholesterol Guidelines: <200 Desirable 200-240 Borderline >240 Undesirable Cholesterol in HDL [Mass/Vol]46 mg/dL40 - PINF mg/dLBSOUTHERN VIR[facility]IA [facility] Comment on above: HDL Guidelines: <40 Undesirable 40-59 Borderline >59 Desirable Cholesterol in LDL [Mass/Vol]87 mg/dL0 - 130 mg/dLBON [facility] SIFTSORT.COM GLSS Comment on above: LDL Guidelines: <100 Desirable 100-129 Near to/above Desirable 130-159 Borderline >159 Undesirable Direct (measured) LDL and calculated LDL are not interchangeable tests. Cholesterol.total/Cholesterol in HDL [Mass ratio]3.8 {ratio}NINF - 5BON [facility] GLSSTriglyceride [Mass/Vol]222 mg/dLHighNINF - 150 mg/dLBON REGENCY HOSPITAL COMPANYComment on above: Triglyceride Guidelines: <150 Desirable 150-199 Borderline 200-499 High >499 Very high Based on AHA Guidelines for fasting triglyceride, August 2012. Lipid Profileon 23-00-3019Pvhunrqxjls [Mass/Vol]177 mg/dLNormal<200Mercy [facility]om[facility] Medical CenterComment on above:Result Comment: Cholesterol Guidelines: <200 Desirable 200-240 Borderline >240 UndesirablePerformed By: #### JATINDER NORIEGA UAJason #### [address] [place] [address] [phone] Refuge Worker: JENARO Zarateholesterol in HDL [Mass/Vol]46 mg/dLNormal>40 [facility] CampusComment on above:Result Comment: HDL Guidelines: <40 Undesirable 40-59 Borderline >59 DesirablePerformed By: #### JATINDER NORIEGA UAX #### [facility] [address] [place] [address] 43287 Refuge Worker: JENARO Zarateholesterol in LDL [Mass/Vol]87 mg/dLNormal0-130 [facility] CampusComment on above:Result Comment: LDL Guidelines: <100 Desirable 100-129 Near to/above Desirable 130-159 Borderline >159 Undesirable Direct (measured) LDL and calculated LDL are not interchangeable tests.Performed By: #### JATINDER NORIEGA UAX #### [facility] [address] [place] [address] Refuge Worker: JENARO Zarateholestles.total/Cholesterol in HDL [Mass ratio]3.8 {ratio}Normal<5MerPatton State HospitalComment on above: Performed By: #### JATINDER NORIEGA UAX #### [facility] [address] [place] [address] 52159 Refuge Worker: Vijay Larios MDTriglyceride [Mass/Vol]222 mg/dLHigh<150K[facility] CampusComment on above:Result Comment: Triglyceride Guidelines: <150 Desirable 150-199 Borderline 200-499 High >499 Very high Based on AHA Guidelines for fasting triglyceride, August 2012.Performed By: #### JATINDER NORIEGA UAX #### [address] [place] [address] 63596 Refuge Worker: Vijay Larios MDMagnesiumon 94-45-4011Cgooldmjm [Mass/Vol]1.8 mg/dLNormal1.6-2.6MLakewood Regional Medical CenterComment on above:Performed By: #### JATINDRE NORIEGA, UAX #### [facility] [address] [place] [address] [phone] Refuge Worker: Vijay Larios MDMagnesium [Mass/Vol]1.8 mg/dL1.6 - 2.6 mg/dLBON REGENCY HOSPITAL COMPANYMagnesium [Mass/Vol]2.0 mg/dLNormal1.6-2.6Mercy [facility] Medical CenterComment on above:Performed By: #### JATINDER NORIEGA, UAX #### [address] [place] [address] [phone] Refuge Worker: Krish Zarateroscopic Urinalysison 19-81-4506Pihvwthq, UA FEWAbnormalNoneBON REGENCY HOSPITAL COMPANYCasts UA0 TO 2 HYALINE Reference range defined for non-centrifuged specimen.[facility] COMPANYEpithelial Cells UA 0 TO 2B[facility] COMPANYInterpretation and review of laboratory results AbnormalB[facility] clumps Auto (Urine sed) [#/Area]NoneBON REGENCY HOSPITAL COMPANYComment on above:Reference range defined for non-centrifuged specimen.WBC, UA2 TO 5BON [facility]OSPITALNo Panel Informationon 32-84-0557BIL [facility] COMPANYInterpretation and review of laboratory resultsAbnormalAVERA DELLS AREA HEALTH CENTEROsmolalityon 21-62-6498Zvyjrznxcm [Osmolality]295 mosm/wuYovxmb178-675Inlqn [facility] CenterComment on above:Performed By: #### JATINDER NORIEGA, UAX #### [address] [place] [address] 43608 Refuge Worker: Tanesha Zarate Ypyvbqffxg158YSOFORT [facility] Glucose Fingerstickon 30-49-8896Pcrrpyr [Mass/Vol]140 mg/zSJevi08 - 105 mg/dLBON REGENCY HOSPITAL COMPANYInterpretation and review of laboratory resultsAbnormalNORTON [facility] Glucose [Mass/Vol]196 mg/oCObip26 - 105 mg/dLB[facility] Interpretation and review of laboratory resultsAbnormalCARILION STONEWALL JACKSON HOSPITALGlucose [Mass/Vol]116 mg/gQVdte77 - 105 mg/dLBON [facility]ENC[facility]OS[facility]ITAL COMPANYInterpretation and review of laboratory resultsAbnormalNORTON COMMUNITY HOSPITALGlucose [Mass/Vol]169 mg/uZQjqt81 - 105 mg/dLB[facility]OS[facility]ITAL COMPANYInterpretation and review of laboratory results AbnormalNORTON COMMUNITY HOSPITALGlucose [Mass/Vol]80 mg/dL65 - 105 mg/dLBON [facility]IAL HOSPITALGlucose [Mass/Vol]61 mg/dLLow65 - 105 mg/dLBON [facility]ITAL COMPANYInterpretation and review of laboratory resultsAbnormLewisGale Hospital Pulaski 18-63-6636ZBT Coag (PPP) [Relative time]1.1 {INR}NormalMercy Palomar Medical CenterComment on above:Result Comment: Therapeutic Range: Moderate Anticoagulant Intensity: INR = 2.0-3.0 High Anticoagulant Intensity: INR = 2.5-3.5Performed By: #### JATINDER NORIEGA UAX #### [address] [place], [place] [phone] Refuge Worker: VARUN Zarate Coag (PPP) [Time]11.6 sNormal9.1-12.3Mercy [facility]omar Medical CenterComment on above:Performed By: #### JATINDER NORIEGA, UAX #### [address] [place] [address] 43608 Refuge Worker: Vika Zarate 42-33-2063Bolkeqnpm [Mass/Vol]1.9 mg/dLLow2.6 - 4.5 mg/dLBON REGENCY HOSPITAL COMPANYPhosphorus, Inorg.on 01-13-2023 Phosphorus, Inorg.1.9 mg/dLLow2.6-4.5[facility] CampusComment on above:Performed By: #### JATINDER NORIEGA UAX #### [address] [place] [address] 36571 Refuge Worker: OTTO Zaraterotime-INRon 73-97-7533BLA Coag (PPP) [Relative time]1.1 {INR}[facility] COMPANYComment on above: Therapeutic Range: Moderate Anticoagulant Intensity: INR = 2.0-3.0 High Anticoagulant Intensity: INR = 2.5-3.5 PT Coag (PPP) [Time]11.6 sBON REGENCY HOSPITAL COMPANYSalicylateon 01-13-2023 Salicylate<7Zmo8-35WvmemKettering Health Main CampusComment on above:Performed By: #### JATINDER NORIEGA UAX #### [address] [place] [address] Refuge Worker: BERNARD ZarateHolayne 12-62-3186BUN Qn0.38 m[IU]/LBON [facility]ENC[facility]OSPITAL COMPANYThyroid Stim. Horm.on 67-12-4036Mlvpdcy Stim. Horm.0.38 uIU/mLNormal 0.30-5.00[facility] CampusComment on above:Performed By: #### JATINDER NORIEGA UAX #### [address] [place] [address] Refuge Worker: Vijay Larios MDToxic Tricyclic Sc,Blon 78-93-0154Eeziq Tricyclic Sc,BlNegativeNormalNEGKettering Health Main CampusComment on above:Performed By: #### JATINDER NORIEGA UAX #### [address] [place], [place] [phone] Refuge Worker: Vijay Larios MDUA w/Reflex Cultureon 45-85-0349Hbqaoqpsb, SemiQt,UrNegativeNormalNEGKettering Health Main CampusComment on above: Performed By: #### LEANN, UMICAO, UAX #### [facility] [address] [place] [address] 16110 Refuge Worker: Zach Zarate UrineNegativeNormalNEGKettering Health Main CampusComment on above:Performed By: #### LEANN, UMICAO, UAX #### [facility] [address] [place] [address] 63226 Refuge Worker: Vijay Larios MDClarity (U)ClearNormalCLEARMerPatton State HospitalComment on above:Performed By: #### LEANN, UMICAO, UAX #### [facility] [address] [place] [address] 63561 Refuge Worker: JENARO Zarateolor (U)Dark YellowAbnormalYELMerPatton State HospitalComment on above:Performed By: #### LEANN, UMICAO, UAX #### [facility] [address] [place] [address] 19025 Refuge Worker: Vijay Larios MDGlucose Ql (U)NegativeNormalNEGKettering Health Main CampusComment on above:Performed By: #### LEANN, UMICAO, UAX #### [facility] [address] [place] [address] 86270 Refuge Worker: Vijay Larios MDKetones Ql (U)SMALLAbnormalNEGMerPatton State HospitalComment on above:Performed By: #### LEANN, UMICAO, UAX #### [facility] [address] [place] [address] 19436 Refuge Worker: Vijay Larios MDLeukocyte esterase Test strip Ql (U)TRACE AbnormalNEGKettering Health Main CampusComment on above:Performed By: #### LEANN, UMICAO, UAX #### [facility] [address] [place] [address] Refuge Worker: Vijay Larios MDNitrite,UrPositiveAbnormalNEGKettering Health Main CampusComment on above:Performed By: #### LEANNJATINDER Adorno, UAX #### [facility] [address] [place] [address] Refuge Worker: TOTO Zarate,Ur6.1Mlrqaf8.0-8.0Kettering Health Main CampusComment on above:Performed By: #### JATINDER NORIEGA, UAX #### [facility] [address] [place] [address] Refuge Worker: OTTO Zaraterotein Ql (U)NegativeNormalAvita Health System Ontario HospitalComment on above:Performed By: #### JATINDER NORIEGA, UAX #### [facility] [address] [place] [address] Refuge Worker: NORBERT Zaratepec. [place],Ur1.222Tvwmux7.005-1.030K[facility]tering Health Main CampusComment on above:Performed By: #### JATINDER NORIEGA, UAX #### [facility] [address] [place] [address] Refuge Worker: Sae Zaratebilinogen,UrELEVATEDAbnormalMemorial HospitalComment on above:Performed By: #### JATINDER NORIEGA, UAX #### [facility] [address] [place] [address] Refuge Worker: Vijay Larios MDUrinalysis with Reflex to Cultureon 01-13-2023 Bilirubin UrineNegativeNEGATIVEBON SECOURS COREY HOSPITALColor, UADark Yellow AbnormalYellowBON SECOURS COREY HOSPITALGlucose Auto test strip (U) [Mass/Vol] NegativeNEGATIVEBON SECOURS COREY HOSPITALInterpretation and review of laboratory resultsAbnormalBON SECOURS COREY HOSPITALKetones (U) [Mass/Vol]SMALLAbnormal NEGATIVEBON SECOURS MERCY HEALTHLeukocyte esterase Auto test strip Ql (U)TRACE AbnormalNEGATIVEBON SECOURS MERCY HEALTHNitrite Auto test strip Ql (U)Positive AbnormalNEGATIVEBON SECOURS MERCY HEALTHProtein (U) [Mass/Vol]6.0 mg/dL5.0 - 8.0 [facility] HEALTHProtein (U) [Mass/Vol]NegativeNEGATIVEB[facility]RS MERCY HEALTHSpecific [place], UA1.0131.005 - 1.030[facility] HEALTHTurbidity UA ClearClearBON SECOURS MERCY HEALTHUrine HgbNegativeNEGATIVEBON [facility]OURS MERCY HEALTHUrobilinogen, UrineELEVATEDAbnormalNormalBON [facility] MERCY HEALTHB[facility] HEALTHUrinalysis,Microon 03-39-8326ZbsnlbbpAGPRqahkvtuGPBWCneux St. Vincent Medical CenterComment on above:Performed By: #### JATINDER NORIEGA, UAX #### [facility] [address] [place] [address] Refuge Worker: JENARO Zarateasts0 TO 2 HYALINENormal0-8Kettering Health Main CampusComment on above:Result Comment: Reference range defined for non- centrifuged specimen.Performed By: #### LEANNJAH AdornoICAO, UAX #### [facility] [address] [place] [address] Refuge Worker: Vijay Larios MDEpithelial cells LM Ql (Urine sed)0 TO 2Normal 0-5K[facility]tering Health Main CampusComment on above:Performed By: #### LEANN, JAHICAO, UAX #### [facility] [address] [place] [address] Refuge Worker: Vijay Larios MDUrine RBC'sNoneNormal0-4K[facility] Health Main CampusComment on above:Result Comment: Reference range defined for non- centrifuged specimen.Performed By: #### LEANN, JAHICAO, UAX #### [facility] [address] [place] [address] Refuge Worker: Vijay Larios MDUrine WBC's2 TO 7Tlrgzi6-5EyqglKettering Health Main CampusComment on above:Performed By: #### JATINDER NORIEGA UAX #### [facility] [address] [place] [address] Refuge Worker: TERRA Zarate CHEST PORTABLEon 78-75-9760EB CHEST PORTABLE EXAMINATION: ONE XRAY VIEW OF [...] Signed by: Karina Marin MD 01/12/23 Final resultNormalKettering Health Main CampusAcetaminophen Levelon 39-22-9359Wsrnsxscieuqt Level<5Low10 - 30 ug/mLBON SECOURS SIFTSORT.COMY HEALTHCALCIUM, IONIC (POC)on 31-21-5557FPC Ionized Calcium0.94 mmol/LLow1.15 - 1.33 mmol/LBON SECOURS MERCY HEALTHPOC Ionized Calcium0.52 mmol/LCritically low1.15 - 1.33 mmol/LBON SECOURS MERCY HEALTHCBC with Auto Differentialon 62-86-3402Fsjovnxb Eos #[facility] HEALTHAbsolute Immature GranulocyteBON SECOURS MERCY HEALTHAbsolute Lymph #1.26[facility] HEALTHAbsolute Bent #0.19[facility] HEALTHBasophils (Bld) [#/Vol]0.03 10*3/uLBON SECOURS MERCY [facility]ALTH Basophils/100 WBC (Bld)1 %0 - 2 %[facility] HEALTHEosinophils/100 WBC (Bld)0 %Low1 - 4 %[facility] HEALTHHematocrit (Bld) [Volume fraction]43.7 %36.3 - 47.1 %[facility] SIFTSORT.COMY HEALTHHemoglobin (Bld) [Mass/Vol]14.4 g/dL11.9 - 15.1 g/dLBON REGENCY HOSPITAL COMPANYImmature granulocytes/100 WBC (Bld)0 %0B[facility] COMPANYInterpretation and review of laboratory resultsAbnormalBON REGENCY HOSPITAL COMPANYLymphocytes/100 WBC (Bld)27 %24 - 43 %[facility]OSPITAL COMPANYMCH (RBC) [Entitic mass]35.3 gdAtqj26.2 - 33.5 pgBON REGENCY HOSPITAL COMPANY MCHC (RBC) [Mass/Vol]33.0 g/dL28.4 - 34.8 g/dLBON SECSELECT MEDICAL SPECIALTY HOSPITAL - CINCINNATIMCV (RBC) [Entitic vol]107.1 rNFomv77.6 - 102.9 fLBON SECOURS MARY IMMACULATE HOSPITALMonocytes/100 WBC (Bld)4 %3 - 12 %[facility] IMMACULATE HOSPITALNRBC Automated0.00.0 per 100 WBCBON SECOURS MARY IMMACULATE HOSPITALPlatelet distribution width (Bld) [Ratio]14.8 %High11.8 - 14.4 %[facility]OSPITAL COMPANYPlatelet mean volume (Bld) [Entitic vol]9.6 fL8.1 - 13.5 fLCENTRA SOUTHSIDE COMMUNITY [facility]PITAL HEALTHPlatelets (Bld) [#/Vol]150 10*3/uLBON SECOURS MARY IMMACULATE HOSPITALRBC (Bld) [#/Vol]4.08 10*6/uL3.95 - 5.11 m/uLBON SECOURS MARY IMMACULATE HOSPITALRBC (Bld) [#/Vol]ANISOCYTOSIS PRESENTBON REGENCY HOSPITAL COMPANYComment on above:MACROCYTOSIS PRESENTSegmented neutrophils/100 WBC (Bld)68 %High36 - 65 % [facility] COMPANYSegs Absolute3.24B[facility]OS[facility]ITAL COMPANYWBC (Bld) [#/Vol]4.8 10*3/uLBON [facility] MEMORIAL HOSPITALCMPon 36-11-8642Xauihrz [Mass/Vol]4.5 g/dL3.5 - 5.2 g/dLBON [facility] COMPANY Albumin/Globulin [Mass ratio]1.2 {ratio}1.0 - 2.5B[facility] HOSPITAL COMPANYALP [Catalytic activity/Vol]451 U/LHigh35 - 104 U/LBON SECOURS SIFTSORT.COMY HEALTHALT [Catalytic activity/Vol]495 U/LHigh5 - 33 U/LBON [facility] MER[facility] HEALTHAnion gap [Moles/Vol]30 mmol/LHigh9 - 17 mmol/LBON SECOURS UC HEALTHY HEALTHAST [Catalytic activity/Vol]988 U/LHighNINF - 32 U/LBON [facility] UC HEALTHY HEALTHBilirubin [Mass/Vol]2.6 mg/dLHigh0.3 - 1.2 mg/dLBON [facility] MERCY HEALTHCalcium [Mass/Vol] 8.7 mg/dL8.6 - 10.4 mg/dLBON [facility]RS MERCY HEALTHChloride [Moles/Vol]96 mmol/L Low98 - 107 mmol/LBON SECOURS UC HEALTHY HEALTHCO2 [Moles/Vol]12 mmol/LLow20 - 31 mmol/LBON [facility] HEALTHY HEALTHCreatinine [Mass/Vol]0.44 mg/dLLow0.50 - 0.90 mg/dLBON [facility]EL[facility]ITY HOSPITALCanadian Corporate Coaching Group [facility] HOSPITALComment on above:ICTERIC SPECIMENGFR/1.73 sq M.predicted MDRD (S/P/Bld) [Vol rate/Area]- PINFBON REGENCY HOSPITAL COMPANYComment on above: These results are not intended [...] therapy that affects renal tubular secretion. Glucose [Mass/Vol]59 mg/dLLow70 - 99 mg/dLBON SECCmed UC HEALTHCanadian Corporate Coaching Group HEALTHInterpretation and review of laboratory resultsAbnormalBON SECOURS SIFTSORT.COMY HEALTHPotassium [Moles/Vol]3.9 mmol/L3.7 - 5.3 mmol/LBON [facility] SIFTSORT.COMY HEALTHProtein [Mass/Vol] 8.3 g/dL6.4 - 8.3 g/dLBON SECOURS [place] HEALTHSodium [Moles/Vol]138 mmol/L135 - 144 mmol/LBON SECOURS SIFTSORT.COMY HEALTHUrea nitrogen [Mass/Vol]8 mg/dL6 - 20 mg/dLBON SECOURS SIFTSORT.COMY HEALTHBON SECOURS UC HEALTHY HEALTHCreatinine W/GFR Point of Careon 86-99-1966Kztbvbothg [Mass/Vol]0.55 mg/dL0.51 - 1.19 mg/dLBON SECOURS MERCY HEALTHeGFR, POCmL/min/1.60f0URE LOS ANGELES COMMUNITY HOSPITALY HEALTHComment on above: These results are not intended [...] therapy that affects renal tubular secretion. Creatinine [Mass/Vol]0.44 mg/dLLow0.51 - 1.19 mg/dLBON SECOURS MERCY HEALTHeGFR, POCmL/min/1.50d9LYJ [facility]ITAL COMPANYComment on above: These results are not intended [...] that affects renal tubular secretion. ELECTROLYTES PLUSon 79-45-2168Edijz gap [Moles/Vol]12 mmol/L7 - 16 mmol/LBON SECOURS MERCY HEALTHChloride [Moles/Vol]113 mmol/LHigh98 - 107 mmol/LBON [facility] MERCY HEALTHCO2 [Moles/Vol]13 mmol/LLow22 - 30 mmol/LB[facility] Potassium [Moles/Vol]4.6 mmol/LHigh3.5 - 4.5 mmol/LB[facility] Sodium [Moles/Vol]137 mmol/FBct757 - 146 mmol/LBON [facility] MERCY HEALTHAnion Gap Can not be calculated7 - 16 mmol/LBON [facility] MERCY HEALTHChloride [Moles/Vol] 127 mmol/LHigh98 - 107 mmol/LBON [facility] MERCY HEALTHCO2 [Moles/Vol]mmol/L Critically low22 - 30 mmol/LBON [facility] HEALTHPotassium [Moles/Vol]1.5 mmol/LCritically low3.5 - 4.5 mmol/LBON [facility] COMPANYSodium [Moles/Vol] 152 mmol/GReuf927 - 146 mmol/LBON [facility] COMPANYEthanolon 01-12-2023 Ethanol [Mass/Vol]240 mg/dLHighNINF - 10 mg/dLBON [facility] GLSSEthanol percent0.24 %HighNINF - 0.010 %[facility] HOSPITALInterpretation and review of laboratory resultsAbnormalBON REGENCY HOSPITAL COMPANYHCG Qualitative, Serumon 43-66-0363mLR QualNegativeNEGATIVEBON SECOURS MARY IMMACULATE HOSPITALComment on above: Specimens with hCG levels near the threshold of the test (25 mIU/mL) may give a negative or indeterminate result. In such cases, another test should be performed with a new specimen in 48-72 hours. If early is suspected clinically in this setting, correlation with quantitative serum b-hCG level is suggested. [address] has confirmed the use of plasma for this test. This has not been cleared or approved by the U.S. Food and Drug Administration. The FDA has determined that such clearance is not necessary. [facility]ATE HOSPITALHemoglobin and hematocrit, bloodon 64-32-3854Dapzhejhwo (Bld) [Volume fraction]45 %36 - 46 %[facility]ULATE HOSPITALHemoglobin (Bld) [Mass/Vol]15.2 g/dL12.0 - 16.0 g/dLBON REGENCY HOSPITAL COMPANYHematocrit (Bld) [Volume fraction]20 %Low36 - 46 %[facility] GLSSHemoglobin (Bld) [Mass/Vol]6.8 g/dLCritically low12.0 - 16.0 g/dLBON REGENCY HOSPITAL COMPANYLactic Acid, POCon 96-98-9295WVK Lactic Acid2.63 mmol/LHigh0.56 - 1.39 mmol/LBON [facility]ITAL COMPANYPOC Lactic Acid1.19 mmol/L0.56 - 1.39 mmol/LBON [facility]ITAL COMPANYMagnesiumon 30-22-1414Gevhxuvyz [Mass/Vol]2.0 mg/dL1.6 - 2.6 mg/dL [facility] HEALTHNo Panel Informationon 62-50-5235Lsjeltorytwteh and review of laboratory resultsAbnormalINOVA [facility]IRFAX [facility]OSPITAL HEALTHInterpretation and review of laboratory results AbnormalBON [facility] HEALTHInterpretation and review of laboratory resultsAbnormalNORTON COMMUNITY HOSPITALPOC Glucose Fingerstickon 75-60-7688Lpobunu [Mass/Vol]134 mg/pELqah41 - 105 mg/dLBON [facility] HEALTHInterpretation and review of laboratory results AbnormalSTAFFORD HOSPITAL HEALTHGlucose [Mass/Vol]55 mg/dLLow65 - 105 mg/dLBON REGENCY [facility]OSPITAL COMPANYComment on above:Critical Noted Interpretation and review of laboratory resultsAbnormalB[facility] B[facility] COMPANYPOCT Glucoseon 93-67-0002Njjardr [Mass/Vol]57 mg/dLLow74 - 100 mg/dLBON REGENCY [facility]OSPITAL COMPANYGlucose [Mass/Vol]21 mg/dLCritically low74 - 100 mg/dLB[facility] TOLEDOCT urea (BUN)on 51-10-9071Wkvy nitrogen [Mass/Vol]8 mg/dL8 - 26 mg/dLBON REGENCY HOSPITAL COMPANYUrea nitrogen [Mass/Vol] mg/dLLow8 - 26 mg/dLBON [facility]ITAL COMPANYSalicylateon 00-30-1437Ggmvwmumlg Lvlmg/dLLow3 - 10 mg/dLBON REGENCY HOSPITAL COMPANYTOXIC TRICYCLIC SC,Bon 01-12-2023 Toxic Tricyclic Sc,BloodNegativeNEGATIVEBON SECOURS MARY IMMACULATE HOSPITALVenous Blood Gas, POCon 46-58-3805HXD3 (Bld) [Moles/Vol]13.6 mmol/LLow22.0 - 29.0 mmol/LBON REGENCY [facility]OSPITAL COMPANYNegative Base Excess, Ioi50Vedp1.0 - 2.0B[facility] IMMACULATE HOSPITALOxygen saturation in Blood81 %60.0 - 85.0 %[facility] HOSPITALpCO2, Ven32.2LowBON REGENCY HOSPITAL COMPANYpH, Ven7.731Jfw9.320 - 7.430B[facility] COMPANYpO2, Ven52.5HighBON SECOURS MARY IMMACULATE HOSPITALHCO3 (Bld) [Moles/Vol]5.6 mmol/L Low22.0 - 29.0 mmol/LBON REGENCY HOSPITAL COMPANYNegative Base Excess, Guy29Etdn2.0 - 2.0B[facility] IMMACULATE HOSPITALOxygen saturation in Blood74 %60.0 - 85.0 %[facility] [place] [facility]OSPITALpCO2, Ven15.5LowBON REGENCY HOSPITAL COMPANYpH, Ven7.161 Critically low7.320 - 7.430B[facility] IMMACULATE HOSPITALpO2, Ven48.6[facility] COMPANYXR CHEST PORTABLEon 73-96-9484Kj acute cardiopulmonary abnormality. [facility] CONSOLIDATEDEXAMINATION: ONE XRAY VIEW OF THE CHEST 01/12/2023 9:55 pm COMPARISON: None. HISTORY: ORDERING SYSTEM PROVIDED HISTORY: seizure TECHNOLOGIST PROVIDED HISTORY: seizure Reason for Exam: upr,seizure,stomach pain FINDINGS: Cardiomediastinal silhouette is normal in size. There is no pleural effusion or pneumothorax. There is no pulmonary consolidation. There is no acute osseous abnormality. [facility] Karina Bach MD - 01/12/2023 EXAMINATION: ONE XRAY VIEW OF THE CHEST 01/12/2023 9:55 pm COMPARISON: None. HISTORY: ORDERING SYSTEM PROVIDED HISTORY: seizure TECHNOLOGIST PROVIDED HISTORY: seizure Reason for Exam: upr,seizure,stomach pain FINDINGS: Cardiomediastinal silhouette is normal in size. There is no pleural effusion or pneumothorax. There is no pulmonary consolidation. There is no acute osseous abnormality. IMPRESSION: No acute cardiopulmonary abnormality. [facility] [employer] Work Phone: radiology Study observation (narrative)[facility] [employer] Work Phone: XR CHEST PORTABLEOrdered By: Karina Marin on [id number] [employer] Work Phone: ACETAMINOPHEN LEVELon 04-57-1040CPLMQKLUKGDDJ (UG/ML) IN SER/PLAS<39Xzx79-87XpirnazjsuPeoples HospitalComment on above: Performed By: #### [id number] ####[facility] ([facility])[address] [place], [place] [address]ZQJJB METABOLIC PANELon 73-80-9892Iymxe gap [Moles/Vol]8 mmol/LNormal 7-20UnPeoples HospitalComment on above:Performed By: #### [id number] #### [facility] ([facility]) [address] [place] [address]Vylliio [Mass/Vol]9.4 mg/dLNormal8.6-10.3UnPeoples HospitalComment on above:Performed By: #### [id number] #### [facility] ([facility]) [address] [place] [address]Fnzygayd [Moles/Vol]100 mmol/PSmbwus33-736WmgrrofucnPeoples HospitalComment on above:Performed By: #### [id number] #### [facility] ([facility]) [address] [place] [address]JK6 [Moles/Vol]26 mmol/KXhgtcj97-17ItyoopxksdPeoples HospitalComment on above:Performed By: #### [id number] #### [facility] ([facility]) [address] [place], [place] [address]Sxoncyzoka [Mass/Vol]1.03 mg/dLNormal0.60-1.20UnPeoples HospitalComment on above:Performed By: #### [id number] #### [facility] ([facility]) [address] [place] [address]VFCBRVNDPN FILTRATION RATE ML/MIN/1.73 SQ M.XGMLLAANB61.1 mL/min/1.73m*2Normal>60.0UnPeoples HospitalComment on above: Result Comment: [facility]???s estimated glomerular filtration rate (eGFR) will [...] potential consequences that do not disproportionately affect anyone group of individuals.Performed By: #### [id number] #### [facility] ([facility]) [address] [place], [place] [address]Oooglzc [Mass/Vol]113 mg/wWGful56-714NorownbivxPeoples HospitalComment on above:Performed By: #### [id number] #### [facility] ([facility]) [address] [place] [place], [place] [address]Gqwhziiqy [Moles/Vol]3.7 mmol/LNormal3.5-5.1UnPeoples HospitalComment on above:Performed By: #### [id number] #### [facility] ([facility]) [address] [place] [place], [place] [address]Camstg [Moles/Vol]134 mmol/TDml747-779NeewpmovdiPeoples HospitalComment on above:Performed By: #### [id number] #### [facility] ([facility]) [address] [place] [place], [place] [address]Iggn nitrogen [Mass/Vol]22 mg/dLNormal7-25UnPeoples HospitalComment on above:Performed By: #### [id number] #### [facility] ([facility]) [address] [place], [place] [address]GMHX NITROGEN/CREATININE (MASS RATIO) IN SER/PLAS21.36Normal [facility] HospitalComment on above:Performed By: #### [id number] #### [facility] ([facility]) [address]ENTERMarc[facility] [place], [place] [address]ZXC WITH AUTO DIFFERENTIALon 17-93-8326Zsfgumgme (Bld) [#/Vol] 0.03 10*3/uLNormal0.00-0.20UnPeoples HospitalComment on above: Performed By: #### [id number] ####[facility] ([facility])[address] [facility] [place] [place] [address]Wxrecgjtf/100 WBC (Bld)0.6 %Normal0.0-1.0UnPeoples HospitalComment on above:Performed By: #### [id number] ####[facility] ([facility])[address] [place], [place] [address]Kqjsnpyytak (Bld) [#/Vol]0.09 10*3/uL Normal0.00-0.50UnPeoples HospitalComment on above:Performed By: #### [id number] ####[facility] ([facility])[address] [place] [address] Eosinophils/100 WBC (Bld)1.8 %Normal0.0-6.0UnPeoples Hospital Comment on above:Performed By: #### [id number] ####[facility] ([facility])[address] [place], [place] [address]AUSOPLELTGL DISTRIBUTION WIDTH (RATIO) STANDARD AMTWZFRSO99.2NormalUnPeoples HospitalComment on above:Performed By: #### [id number] ####[facility] ([facility])[address] [place], [place] [address]Wmzuahicioh distribution width (RBC) [Ratio]12.9 %Zzzgui82.5-15.0UnPeoples HospitalComment on above:Performed By: #### [id number] ####[facility] ([facility])[address] [place], [place] [address]IRODLZZCRHE MEAN CORPUSCULAR HEMOGLOBIN CONCENTRATION (G/DL) BY IEDZVCCVI27.9 g/vVWdzhzb02.0-35.0 [facility] HospitalComment on above:Performed By: #### [id number] ####[facility] ([facility])[address] [place], [place] [address]Bemuidrlos (Bld) [Volume fraction]30.4 %Low36.0-48.0UnPeoples HospitalComment on above:Performed By: #### [id number] ####[facility] ([facility])[address] [place], [place] [address]Tswifyyxvq (Bld) [Mass/Vol]10.3 g/dLLow12.0-15.0UnPeoples HospitalComment on above:Performed By: #### [id number] ####[facility] (BE[facility]ER)[address] [place] [address]Gaezctcg granulocytes (Bld) [#/Vol]0.03 10*3/uLNormal0.00-0.20UnPeoples Hospital Comment on above:Performed By: #### [id number] ####[facility] ([facility] SURINDERGUTHRIE TOWANDA MEMORIAL HOSPITALAnitaCORPUS [place], [place] [address]Bcoosyzb granulocytes/100 WBC (Bld)0.6 %Normal 0.0-1.0UnPeoples HospitalComment on above:Performed By: #### [id number] ####[facility] ([facility])[address] [place] [address] Lymphocytes (Bld) [#/Vol]1.70 10*3/uLNormal1.20-4.00UnPeoples HospitalComment on above:Performed By: #### [id number] ####[facility] ([facility])[address] SURINDERGUTHRIE TOWANDA MEMORIAL HOSPITALAnitaCORPUS [place], [place] [address]Twrnkqlttba/100 WBC (Bld)34.6 %Normal 20.0-45.0UnPeoples HospitalComment on above:Performed By: #### [id number] ####[facility] ([facility])[address] [place], [place] [address]NHR (RBC) [Entitic mass]35.3 etAqgf37.0-33.0UnPeoples Hospital Comment on above:Performed By: #### [id number] ####[facility] ([facility])[address] SURINDERGUTHRIE TOWANDA MEMORIAL HOSPITALAnita, [place] [address]WTA (RBC) [Entitic vol]104.1 ySFuny27.0-98.0 [facility] HospitalComment on above:Performed By: #### [id number] ####[facility] ([facility])[address] SURINDERGUTHRIE TOWANDA MEMORIAL HOSPITALAnita, [place] [address]Ijrnxgqld (Bld) [#/Vol]0.99 10*3/uLNormal0.10-1.00UnPeoples HospitalComment on above:Performed By: #### [id number] ####[facility] ([facility])[address] [place] [address]Egzlyejue/100 WBC (Bld)20.1 %High5.0-12.0UnPeoples HospitalComment on above:Performed By: #### [id number] ####[facility] ([facility])[address] [place] [address]Nboxuivrprp (Bld) [#/Vol]2.08 10*3/uL Normal1.60-7.60UnPeoples HospitalComment on above:Performed By: #### [id number] ####[facility] ([facility])[address] [place] [address] Neutrophils/100 WBC (Bld)42.3 %Tyqpxb14.0-72.0UnPeoples HospitalComment on above:Performed By: #### [id number] ####[facility] ([facility])[address] [place] [address]VNTZ (PER 100 WBCS) BY AUTOMATED COUNT 0.0 %Normal0.0-0.0UnPeoples HospitalComment on above:Performed By: #### [id number] ####[facility] ([facility])[address] [place] [address]QINHZOPBV (10*3/UL) IN BLOOD AUTOMATED DOAEN372 10*3/wHUsbrdy371-284 [facility] HospitalComment on above:Performed By: #### [id number] ####[facility] ([facility])[address] [place] [address]IUS (Bld) [#/Vol]2.92 10*6/uLLow3.80-5.00UnPeoples HospitalComment on above:Performed By: #### [id number] ####[facility] ([facility])[address] [place] [address]RGS (Bld) [#/Vol]4.92 10*3/uLNormal4.00-10.60Un[facility] Medical CenterComment on above:Performed By: #### [id number] ####[facility] [address] ([place]) [place] [id number] 09-28-2022 CONSULT Attestation signed by Juliet Beckman MD at 10/04/2022 11:42 AM As the teaching physician, I discussed this case with the resident physician conservation biology professor as well as the medical student. I did not see this case in person. SUBJECTIVE: CC: Alcohol intoxication and opioid overdose History of present illness: 31 year-old female with a past psychiatric history of depression and anxiety presented to [facility] on 09/28/2022 for evaluation of alcohol intoxication and opioid overdose. Per social work, ???patient was admitted to [facility] from 09/23/2022-09/28/2022 for alcohol abuse and opiate overdose. She was given discharge recommendations to [facility] for detox assessment. Of note, it [...] auditory hallucinations. Patient, born and raised in [place], states she has been struggling with substance abuse since 19 years old. She admits to stealing and ???becoming addicted??? to morphine at 19 years old. She states she was placed in a ???safe-house for a controlled environment??? for a couple of weeks due to mis-use. She also states she was sent to a detox center in [place] at 20 years old for opioid over-dose. [...] was admitted to a detox center in [facility] 2019 and March 2020. She states after she completed her course from her admission in March 2020, she was hired as an employee until she quit in September 2020. In between those months, she was not consuming alcohol nor using opioids. Patient states she sees her PCP at [facility]; however, patient states she was ???never properly evaluated for [her] depression and anxiety.??? Her medications are pending confirmation with her pharmacy on [address]. Patient states her energy is usually ???low??? and receives very little sleep. She states she would sleep ???for 2 hours, smoke a cigarette, then sleep for another 2 hours.??? Patient states she has a fianc??? who is currently in intermediate. Her relationship with her mother is strained [...] her depressive and anxious symptoms. Collateral: Mother- [phone]. Mother states she is aware of patient's [...] OF SYSTEMS: The patient (more content not included)...[facility] CenterEDNURSon [id number] states that she is interested in detox. Pt states that she [...] to run out into traffic. Pt denies HI.[facility] CenterEDPROVon [id number]: As the teaching physician, I have personally performed or re-performed the history of present illness, physical exam and medical decision-making activities of the encounter and verified the medical student's documentation. I made pertinent changes as necessary to ensure accurate documentation. Additional Comments: Pt requesting detox and also states she wants to fun into traffic. Kori Ellsworth DO Attending physician [facility] Emergency Department Kori DO Jodee 01/27/23 1716NormalUniversity Memorial Herm[facility] HospitalVL[facility] Chief Complaint Patient presents with Withdrawal Suicidal [...] in the past or previous suicidal attempts. Willard Coma Scale Score: 15 Patient History No [...] ED Course as of 09/28/222209Sep 28, 2022 170 Spoke with psych will evaluate the patient [JOSE MARIA] ED Course User Index [JOSE MARIA] Eligio Félix Diagnoses as of 09/28/222209 S/P alcohol detoxification [...] for placement. Patient refused to go to [facility] as she states she has [...] found with none of her belongings Eligio Félix 09/28/222208 Eligio Heard 09/28/222210NormalUniversity Cherrington HospitalETHANOLon 09-28-2022 ETHANOL (MG/DL) IN SER/PLAS<10NormalUniversLouis Stokes Cleveland VA Medical CenterComment on above:Result Comment: No Ethanol detectedPerformed By: #### LAB46 #### [facility] (BEAKER) [address] [place], [place] [address]RRGYRUC CALCULATED (%)NormalUnPeoples Hospital Comment on above:Performed By: #### LAB46 #### [facility] ([facility]) [address] [place], [place] [address]QSTOVPWTBY LEVELon [id number] (MG/DL) IN SER/PLAS<2 Low4-29UC [facility] HospitalComment on above:Performed By: #### LAB34 #### [facility] ([facility]AKER) [address] [place], [place] [address]NPM with Auto Differentialon [id number] Eos #[facility] HEALTHAbsolute Immature GranulocyteBON SECOURS MERCY HEALTHAbsolute Lymph #1.71[facility] HEALTHAbsolute Bent #0.77[facility] Basophils (Bld) [#/Vol]0.03 10*3/uLBON SECOURS MERCY HEALTHBasophils/100 WBC (Bld)1 %0 - 2 %[facility] HEALTHEosinophils/100 WBC (Bld)0 %Low1 - 4 %[facility] HEALTHHematocrit (Bld) [Volume fraction]39.4 %36.3 - 47.1 %[facility] HEALTHHemoglobin (Bld) [Mass/Vol]13.6 g/dL11.9 - 15.1 g/dLBON SECOU[facility] MERCY [facility] HOSPITALImmature granulocytes/100 WBC (Bld)0 %0[facility] HEALTHInterpretation and review of laboratory resultsAbnormalBON SECOURS MERCY HEALTHLymphocytes/100 WBC (Bld)31 %24 - 43 %[facility]OSPITALH (RBC) [Entitic mass]34.0 wiLzau21.2 - 33.5 pgBON SECOURS MERCY [facility]IST HOSPITALHC (RBC) [Mass/Vol]34.5 g/dL28.4 - 34.8 g/dLBON SECOURS MERCY [facility] METHODIST HOSPITALV (RBC) [Entitic vol]98.5 fL82.6 - 102.9 fLBON SECOURS MERCY HEALTHMonocytes/100 WBC (Bld)14 % High3 - 12 %[facility] HEALTHNRBC Automated0.00.0 per 100 WBCBON REGENCY HOSPITAL COMPANYPlatelet distribution width (Bld) [Ratio]13.8 %11.8 - 14.4 %[facility] HEALTHPlatelet mean volume (Bld) [Entitic vol]10.0 fL8.1 - 13.5 fL [facility] HEALTHPlatelets (Bld) [#/Vol]157 10*3/uLB[facility] HEALTHRBC (Bld) [#/Vol]4.00 10*6/uL3.95 - 5.11 m/uLBON [facility] Segmented neutrophils/100 WBC (Bld)54 %36 - 65 %[facility] HEALTHSegs Absolute2.96[facility]OS[facility]ITAL COMPANYWBC (Bld) [#/Vol]5.5 10*3/uLBON [facility]ENC[facility] HOSPITAL COMPANYB[facility] REG[facility] HOSPITAL COMPANYCBC with Diffon 32-83-1226Ywr. Basophil0.03 k/uLNormal0.00-0.20[facility] CampusComment on above:Performed By: #### JATINDER NORIEGA, UAX #### [address] [place] [address] Refuge Worker: Cynthia Zarate. Eosinophil<0.37Eelvte2.00-0.44[facility] Main CampusComment on above:Performed By: #### JATINDER NORIEGA, UAX #### [address] [place] [address] Refuge Worker: MDAbs. ElliotImm.Granulocyte<0.87Zhywbn0.00-0.30[facility] Main CampusComment on above:Performed By: #### LEANNJATINDER Adorno, UAX #### [address] [place] [address] Refuge Worker: Cynthia Zarate.Neutrophil (Seg)2.96 k/uLNormal1.50-8.10 [facility] CampusComment on above:Performed By: #### JATINDER NORIEGA, UAX #### [facility] [address] [place] [address] Refuge Worker: Vijay Larios MDBasophils/100 WBC (Bld)1 %Normal0-2MLakewood Regional Medical CenterComment on above:Performed By: #### JATINDER NORIEGA, UAX #### [facility] [address] [place] [address] Refuge Worker: Vijay Larios MDEosinophils/100 WBC (Bld)0 %Low1-4[facility] CampusComment on above:Performed By: #### JATINDER NORIEGA, UAX #### [facility] [address] [place] [address] Refuge Worker: Vijay Larios MDErythrocyte distribution width (RBC) [Ratio]13.8 %Pbyjst58.8-14.4[facility] CampusComment on above:Performed By: #### JATINDER NORIEGA, UAX #### [facility] [address] [place] [address] Refuge Worker: Vijay Larios MDHematocrit (Bld) [Volume fraction]39.4 %Normal 36.3-47.1MLakewood Regional Medical CenterComment on above:Performed By: #### JATINDER NORIEGA, UAX #### [facility] [address] [place] [address] Refuge Worker: Vijay Larios MDHemoglobin (Bld) [Mass/Vol]13.6 g/dLNormal 11.9-15.1MLakewood Regional Medical CenterComment on above:Performed By: #### JATINDER NORIEGA, UAX #### [facility] [address] [place] [address] Refuge Worker: Vijay Larios MDImmature granulocytes/100 WBC (Bld)0 %Normal0 [facility] CampusComment on above:Performed By: #### JATINDER NORIEGA, UAX #### [facility] [address] [place] [address] Refuge Worker: Callum Zaratemphocytnick (Bld) [#/Vol]1.71 10*3/uLNormal 1.10-3.70[facility] CampusComment on above:Performed By: #### JAITNDER NORIEGA, UAX #### [facility] [address] [place] [address] Refuge Worker: Antony Zaratecytes/100 WBC (Bld)31 %Ojmutr32-75KhrkiKettering Health Main CampusComment on above:Performed By: #### JATINDER NORIEGA, UAX #### [facility] [place] [address] [place] [address] Refuge Worker: MIRELLA ZarateCH (RBC) [Entitic mass]34.0 yiRmnz18.2-33.5 [facility] CampusComment on above:Performed By: #### JATINDER NORIEGA UAX #### [facility] [address] [place] [address] Refuge Worker: MIRELLA ZarateCHC (RBC) [Mass/Vol]34.5 g/nJQhnoms49.4-34.8 [facility] CampusComment on above:Performed By: #### JATINDER NORIEGA, UAX #### [facility] [address] [place] [address] Refuge Worker: MIRELLA ZarateCV (RBC) [Entitic vol]98.5 fHRbgnmp83.6-102.9 [facility] CampusComment on above:Performed By: #### JATINDER NORIEGA, UAX #### [facility] [address] [place] [address] Refuge Worker: Vijay Madoff, MDMonocytes (Bld) [#/Vol]0.77 10*3/uLNormal 0.10-1.20[facility] CampusComment on above:Performed By: #### JATINDER NORIEGA, UAX #### [facility] [address] [place] [address] Refuge Worker: MIRELLA Zarateonocytes/100 WBC (Bld)14 %High3-12[facility] CampusComment on above:Performed By: #### CRISTINA NORIEGAO, UAX #### [facility] [address] [place] [address] Refuge Worker: Susana Zarateophil (Seg)54 %Bemwqp44-83DzdngKettering Health Main CampusComment on above:Performed By: #### JATINDER NORIEGA, UAX #### [facility] [address] [place] [address] Refuge Worker: Vijay Larios MDNRBC Automated0.0 per 100 WBCNormal0.0[facility] CampusComment on above:Performed By: #### JATINDER NORIEGA, UAX #### [facility] [address] [place] [address] Refuge Worker: Rigo Zaratetelet mean volume (Bld) [Entitic vol]10.0 fL Normal8.1-13.5[facility] CampusComment on above:Performed By: #### LEANNJAH AdornoICAO, UAX #### [facility] [address] [place] [address] Refuge Worker: Vijay Larios MDPlatelets (Bld) [#/Vol]157 10*3/bHFvmkgt252-131 [facility] CampusComment on above:Performed By: #### LEANNCRISTINA AdornoO, UAX #### [facility] [address] [place] [address] [phone] Refuge Worker: Vijay Larios [facility] DISTRICT HOSPITALBC (Bld) [#/Vol]4.00 10*6/uLNormal3.95-5.11 [facility] CampusComment on above:Performed By: #### JATINDER NORIEGA UAX #### [facility] [address] [place] [address] Refuge Worker: Vijay Larios MDMORGAN [facility] (Bld) [#/Vol]5.5 10*3/uLNormal3.5-11.3MLakewood Regional Medical CenterComment on above:Performed By: #### JATINDER NORIEGA UAX #### [facility] [address] [place], [place] [phone] Refuge Worker: Vijay Larios [facility] 37-85-9318Nlpzima [Mass/Vol]4.4 g/dL3.5 - 5.2 g/dLBON REGENCY HOSPITAL COMPANYAlbumin/Globulin [Mass ratio]1.2 {ratio}1.0 - 2.5B[facility] HOSPITAL COMPANYALP (Bld) [Catalytic activity/Vol]93 U/L35 - 104 U/L [facility] HOSPITALComment on above:SPECIMEN SLIGHTLY HEMOLYZED, RESULTS MAY BE ADVERSELY AFFECTED.ALT [Catalytic activity/Vol]108 U/LHigh5 - 33 U/LBON REGENC[facility] HOSPITAL COMPANYComment on above:SPECIMEN SLIGHTLY HEMOLYZED, RESULTS MAY BE ADVERSELY AFFECTED.Anion gap [Moles/Vol]23 mmol/LHigh9 - 17 mmol/LBON REGENCY HOSPITAL COMPANYAST [Catalytic activity/Vol]430 U/LHighNINF - 32 U/LBON [facility]OS[facility]ITAL COMPANYComment on above:SPECIMEN SLIGHTLY HEMOLYZED, RESULTS MAY BE ADVERSELY AFFECTED.Bilirubin [Mass/Vol]1.0 mg/dL0.3 - 1.2 mg/dLBON REGENCY HOSPITAL COMPANYCalcium [Mass/Vol]9.2 mg/dL8.6 - 10.4 mg/dLB[facility] REG[facility] COMPANY Chloride [Moles/Vol]99 mmol/L98 - 107 mmol/LBON SECOURS MERCY HEALTHCO2 [Moles/Vol]17 mmol/LLow20 - 31 mmol/LBON [facility] SIFTSORT.COMSELECT MEDICAL SPECIALTY HOSPITAL - CINCINNATI NORTHCreatinine [Mass/Vol]0.48 mg/dLLow0.50 - 0.90 mg/dLBON [facility] Metamark GeneticsGFR/1.73 sq M.predicted MDRD (S/P/Bld) [Vol rate/Area]- PINFBON REGENCY HOSPITAL COMPANYComment on above: Effective Aug 22, 2022 These [...] therapy that affects renal tubular secretion. Glucose [Mass/Vol]115 mg/tINilj57 - 99 mg/dLBON [facility] SIFTSORT.COMSELECT MEDICAL SPECIALTY HOSPITAL - CINCINNATI NORTHPotassium [Moles/Vol]3.5 mmol/LLow3.7 - 5.3 mmol/LBON REGENC[facility] HOSPITAL COMPANYComment on above:SPECIMEN SLIGHTLY HEMOLYZED, RESULTS MAY BE ADVERSELY AFFECTED.Protein [Mass/Vol]8.0 g/dL6.4 - 8.3 g/dLBON REGENCY HOSPITAL COMPANYSodium [Moles/Vol]139 mmol/L135 - 144 mmol/LBON [facility]OSPITAL COMPANYUrea nitrogen (BldV) [Mass/Vol]15 mg/dL6 - 20 mg/dLBON [facility] Metamark GeneticsChristian Hospitalp Metabolic Profon 45-98-8055Swrmkqd [Mass/Vol]4.4 g/dLNormal3.5-5.2[facility] Medical CenterComment on above:Performed By: #### JATINDER NORIEGA, UAX #### [address] [place] [address] Refuge Worker: Vijay Larios, MDAlbumin/Glob Ratio1.9Wxryaa6.0-2.5[facility]om[facility] Medical CenterComment on above:Performed By: #### JATINDER NORIEGA, UAX #### [facility] [address] [place] [address] Refuge Worker: Vijay Larios MDAlkaline Phos93 U/XLlzmwu97-611CkhuhKettering Health Main CampusComment on above:Result Comment: SPECIMEN SLIGHTLY HEMOLYZED, RESULTS MAY BE ADVERSELY AFFECTED.Performed By: #### JATINDER NORIEGA UAX #### [facility] [address] [place] [address] Refuge Worker: Vijay Larios MDALT [Catalytic activity/Vol]108 U/LHigh5-33[facility] CampusComment on above:Result Comment: SPECIMEN SLIGHTLY HEMOLYZED, RESULTS MAY BE ADVERSELY AFFECTED.Performed By: #### JATINDER NORIEGA UAX #### [facility] [address] [place] [address] Refuge Worker: Vijay Larios MDAnion gap [Moles/Vol]23 mmol/LHigh9-17[facility] CampusComment on above:Performed By: #### JATINDER NORIEGA UAX #### [facility] [place] [address] [place] [address] Refuge Worker: Vijay Larios MDAST [Catalytic activity/Vol]430 U/LHigh<32[facility] CampusComment on above:Result Comment: SPECIMEN SLIGHTLY HEMOLYZED, RESULTS MAY BE ADVERSELY AFFECTED.Performed By: #### JATINDER NORIEGA UAX #### [facility] [address] [place] [address] Refuge Worker: Vijay Larios MDBilirubin [Mass/Vol]1.0 mg/dLNormal0.3-1.2[facility] Medical CenterComment on above:Performed By: #### JATINDER NORIEGA UAX #### [facility] [address] [place] [address] Refuge Worker: Vijay Larios MDCalcium [Mass/Vol]9.2 mg/dLNormal8.6-10.4[facility] CampusComment on above:Performed By: #### JATINDER NORIEGA, UAX #### [facility] [address] [place] [address] Refuge Worker: JENARO Zaratehloride [Moles/Vol]99 mmol/QYyipoz11-770BzeskKettering Health Main CampusComment on above:Performed By: #### LEANNJATINDER Adorno, UAX #### [facility] [address] [place] [address] Refuge Worker: Vijay Larios MDCO2 [Moles/Vol]17 mmol/HPjc03-69FzpdnKettering Health Main CampusComment on above:Performed By: #### JATINDER NORIEGA, UAX #### [facility] [address] [place] [address] Refuge Worker: JENARO Zaratereatinine [Mass/Vol]0.48 mg/dLLow0.50-0.90[facility] CampusComment on above:Performed By: #### JATINDER NORIEGA, UAX #### [facility] [address] [place] [address] Refuge Worker: Vijay Larios MDGFR/1.73 sq M.predicted among non-blacks MDRD (S/P/Bld) [Vol rate/Area]mL/min/{1.73_m2}Normal>60[facility] CampusComment on above:Result Comment: Effective Aug 22, 2022 These results [...] or following therapy that affects renal tubular secretion.Performed By: #### LEANNCRISTINA AdornoO, UAX #### [facility] [address] [place] [address] [phone] Refuge Worker: Vijay Larios MDGlucose [Mass/Vol]115 mg/sWBbam75-44Nkrqm [facility] Medical CenterComment on above:Performed By: #### JATINDER NORIEGA UAX #### [facility] [address] [place] [address] Refuge Worker: Vijay Larios MDPotassium [Moles/Vol]3.5 mmol/LLow3.7-5.3MLakewood Regional Medical CenterComment on above:Result Comment: SPECIMEN SLIGHTLY HEMOLYZED, RESULTS MAY BE ADVERSELY AFFECTED.Performed By: #### JATINDER NORIEGA UAX #### [facility] [address] [place] [address] Refuge Worker: Vijay Larios MDProtein [Mass/Vol]8.0 g/dLNormal6.4-8.3MLakewood Regional Medical CenterComment on above:Performed By: #### JATINDER NORIEGA UAX #### [facility] [address] [place] [address] Refuge Worker: Vijay Larios MDSodium [Moles/Vol]139 mmol/DPzlewo390-126YqubfKettering Health Main CampusComment on above:Performed By: #### JATINDER NORIEGA UAX #### [facility] [address] [place] [address] Refuge Worker: Vijay Larios MDUrea nitrogen [Mass/Vol]15 mg/dLNormal6-20[facility] CampusComment on above:Performed By: #### JATINDER NORIEGA UAX #### [facility] [address] [place] [address] Refuge Worker: Vijay Larios MDETOHolayne 09-96-7107Zhzhneb [Mass/Vol]233 mg/dLHigh NINF - 10 mg/dLBON SECWemoLab HEALTHEthanol percent0.233 %HighNINF - 0.010 % BON SECWemoLab HEALTHEthanol Alcoholon 69-00-9215Isrrypj [Mass/Vol]233 mg/dL High<10[facility]om[facility] Medical CenterComment on above:Performed By: #### B12FOL, FEBC, LIVP #### [facility] [place], [place] [phone] Refuge Worker: Vijay Larios MD #### AASMF #### [facility] [address] [place] [address] Refuge Worker: Matthew Elkins MDEthanol percent0.233 %High<0.010MerPatton State HospitalComment on above:Performed By: #### MargaritaFODelmis, FEDOLORES, LIVP #### [facility] [place], [place] [phone] Refuge Worker: Vijay Larios MD #### AASMF #### [facility] [address] [place] [address] Refuge Worker: Matthew Elkins MDHCG Qualitative, Serumon 45-06-3073iMO Qual NegativeNEGATIVEBON REGENCY HOSPITAL COMPANYComment on above:Specimens with hCG levels near the threshold of the test (25 mIU/mL) may give a negative or indeterminate result. In such cases, another test should be performed with a new specimen in 48-72 hours. If early is suspected clinically in this setting, correlation with quantitative serum b-hCG level is suggested. [address] has confirmed the use of plasma for this test. This has not been cleared or approved by the U.S. Food and Drug Administration. The FDA has determined that such clearance is not necessary. [facility] COMPANYHCG Screen, Bloodon 48-46-9591FOF Screen, BloodNegative NormalNEGMerPatton State HospitalComment on above:Result Comment: Specimens with hCG levels near the threshold of the test (25 mIU/mL) may give a negative or indeterminate result. In such cases, another test should be performed with a new specimen in 48-72 hours. If early is suspected clinically in this setting, correlation with quantitative serum b-hCG level is suggested. [address] has confirmed the use of plasma for this test. This has not been cleared or approved by the U.S. Food and Drug Administration. The FDA has determined that such clearance is not necessary.Performed By: #### CRISTINA NORIEGAO, UAX #### [facility] [address] [place] [address] Refuge Worker: Vijay Larios MDLipaseon 99-54-1355Rixxoc [Catalytic activity/Vol]962 U/VZjrl65-68JlywvKettering Health Main CampusComment on above: Performed By: #### B12FOL, FEBC, LIVP #### [facility] [address] [place] [address] Refuge Worker: Vijay Larios MD #### AASM #### [address] [address] Refuge Worker: Matthew Elkins MDInterpretation and review of laboratory results AbnormalBON [facility] OF EAST VALLEYWemoLab MERC[facility] COUNTY COMMUNITY HOSPITALLipase [Catalytic activity/Vol]962 U/LHigh13 - 60 U/LBON [facility] Alchimer [facility] STATE HOSPITALWemoLab [facility] HOSPITALNo Panel Informationon 68-53-8771Xrfaflyfthpnlo and review of laboratory resultsAbnormalBON [facility]*SARS-CoV-2 COVID-19on 27-58-3201JMXN-CoV-2 (COVID-19) RNA VIVIANA+probe Ql (Unsp spec)DetectedCritically abnormalNot Detected The [facility] HospitalComment on above:Order Comment: The Aptima SARS-CoV-2 assay is a nucleic acid amplification test intended for the qualitative detection of RNA from SARS-CoV-2 isolated and purified from nasopharyngeal (WATER PLUMBER), oropharyngeal (OP), nasal swab, sputum, and bronchoalveolar lavage (BAL) specimens from patients with signs and symptoms of infection who are suspected of COVID-19. Results are for the identification of SARS-CoV-2 RNA. The SARS-CoV-2 RNA is generally detectable during the acute phase of infection. The Aptima SARS-CoV-2 Assay on the [place] [employer] [place] [employer] system is intended for use by laboratory personnel specifically instructed and trained in the operation of the [place] [employer] [place] [employer] system. The Aptima SARS-CoV-2 assay is [...] out bacterial infection or co-infection with other viruses.Result Comment: Called Ceasar Burger on 04-08 at [phone]. Faxed results to [phone].Performed By: #### [id number] #### [facility] [address] [place] [id number], [facility] SERVICESR (9272)on 34-89-2834Qrnmla Ab RPR Ql (S)RPR SEE NOTE (NOTE) Result: NON-REACTIVE Reference range: NON-REACTIVE Test performed at [address] [address] Director: Arthur BARRAZAMontgomery General HospitalComment on above: Performed By: #### SHELLY, [facility] #### [facility] [address] [place] [address]GARTHJH FUNCTION PANELon 95-28-8215Bdajtai [Mass/Vol]4.7 g/dL Normal3.5-5.0St. [facility]'S HospitalComment on above:Performed By: #### SHELLY, [facility] #### [facility] [address] [place] [address]Zllsnbx/Globulin [Mass ratio]1.7 {ratio}Normal1.5-2.5St. Joseph'S HospitalComment on above:Performed By: #### SHELLY, [facility] #### [facility] [address] [place] [id number] PHOS61 U/EMzfqzx41-947MfxbxlmjSt. Joseph'S HospitalComment on above:Performed By: #### SHELLY, [facility] #### [facility] [address] [place] [address]CCW [Catalytic activity/Vol]18 U/LNormal<35St. Joseph'S HospitalComment on above:Performed By: #### SHELLY, [facility] #### [facility] [address] [place], [place] [address]GNF [Catalytic activity/Vol]33 U/TBrpvrl28-77ZnkjvfmtSt. Joseph'S HospitalComment on above:Performed By: #### SHELLY, [facility] #### [facility] [address] [place], [place] [address]Mvgzxrrto [Mass/Vol]0.4 mg/dLNormal0.2-1.3St. Joseph'S HospitalComment on above:Performed By: #### SHELLY, [facility] #### [facility] [address] [place] [address]Wfqrunzxi.direct [Mass/Vol]0.3 mg/dLNormal0.0-0.3St. Joseph'S HospitalComment on above:Performed By: #### SHELLY, [facility] #### [facility] [address] [place] [address]Czzdlzs [Mass/Vol]7.4 g/dLNormal6.3-8.2[facility] Comment on above:Performed By: #### SHELLY, [facility] #### [facility] [address] [place] [address]VFHJMVHBX C AB w REFLX PCR QUANon [id number] C AB w REFLXNegativeNormalNEGSt. Joseph'S HospitalComment on above:Performed By: #### SHELLY, [facility] #### [facility] [address] [place] [address]JRQcy 83-06-5383ZQHFRVIXKJJESUS [place]IL[place] [address] EMG REPORT Patient : GERMAN JACOB Status : REG REF Age : 29 Room/Bed : D.O.B : 91 Acct. Number : [id number] Sex : F M.R. Number : [id number] Ordering Physician : Mai Mcwilliams Admitting Diagnosis: [...] upper extremity. Deep tendon reflexes 2 plus. Bnmseq-nz-wbwp intact. Gait is within normal range. SUMMARY: [...] left. Clinical correlation advised. GERMAN JACOB - /MYKEL/hns DOC#: [id number]/JOB#: [id number] [place] [address] EMG REPORT Patient : GERMAN JACOB Status : REG REF Age : 29 Room/Bed : D.O.B : 91 Acct. Number : [id number] Sex : F M.R. Number : [id number] Ordering Physician : Mai Mcwilliams Admitting Diagnosis: RIGHT WRIST PAIN AND NUMBNESS Physician to Read : Date of Study : 04/14/20 MAX JACQUES MStacy Rodriguez... 04/14/20 Carrie Menendez MD T.... 04/14/20 0846 Signed Electronically 04/15/20 1050 cc:[facility] [id number]: GERMAN JACOB Phys: Mai Mcwilliams : 1990 Age: 29 Sex: F Acct: [id number] Loc: [facility] Exam Date: 04/14/2020 Status: REG REF Radiology No: Unit No: [id number] PH: [phone] Diagnosis: RIGHT WRIST PAIN AND NUMBNESS EXAM: [id number] SPINE/LUMBAR MIN 4 VWS Reason For Procedure: [...] : 1990 Age: 29 Sex: F Acct: [id number] Loc: [facility] Exam Date: 04/14/2020 Status: REG REF Radiology No: Unit No: [id number] PH: [phone] Diagnosis: RIGHT WRIST PAIN AND NUMBNESS EXAM: [id number] SPINE/LUMBAR MIN 4 VWS Reason For Procedure: LUMBANGO SCIATICA RIGHT SIDE REPORT ELECTRONICALLY SIGNED BY: Elia Garcia D.O. 04/14/2020 9:06 AM REPORT SIGNED IN OTHER VENDOR SYSTEM 04/14/2020 Reported By: Elia Garcia DO CC: Mai Mcwilliams Technologist: ANNTOINET L. MENDOZA, RT/R Transcribed Date/Time: 04/14/2020 (906) [address] Technician: PARVIN Printed Date/Time: 04/14/2020 (906) PAGE 2 [facility] 04-14-2020 SPTDSVName: GERMAN JACOB Phys: Mai Mcwilliams : 1990 Age: 29 Sex: F Acct: [id number] Loc: [facility] Exam Date: 04/14/2020 Status: REG REF Radiology No: Unit No: [id number] PH: [phone] Diagnosis: RIGHT WRIST PAIN AND NUMBNESS EXAM: [id number] SPINE/DORSAL 3 VWS Reason For Procedure: LUMBANGO [...] : 1990 Age: 29 Sex: F Acct: [id number] Loc: WNVL Exam Date: 04/14/2020 Status: REG REF Radiology No: Unit No: [id number] PH: [phone] Diagnosis: RIGHT WRIST PAIN AND NUMBNESS EXAM: [id number] SPINE/DORSAL 3 VWS Reason For Procedure: LUMBANGO SCIATICA RIGHT SIDE REPORT ELECTRONICALLY SIGNED BY: Elia Garcia D.O. 04/14/2020 9:06 AM REPORT SIGNED IN OTHER VENDOR SYSTEM 04/14/2020 Reported By: Elia Garcia DO CC: Mai Mcwilliams Technologist: NICOLÁS MENDOZA, RT/R Transcribed Date/Time: 04/14/2020 (906) Roadway Technician: PARVIN Printed Date/Time: 04/14/2020 (906) PAGE 2 [facility] Vital Signs Date TimeVital SignValuePerforming ZvlpzjlyjPgwqdwco18-46-9159 16:00-0400Body kdozhjfqilr05.9 [degF]PHYSICIAN [facility] 08-20-2024 16:00-0400Diastolic blood oadxpygx53 mm[Hg]PHYSICIAN [facility]10-01-2024 16:00-0400Heart rate53 /minPHYSICIAN [facility]10-01-2024 16:00-0400Respiratory rate 23 /minPHYSICIAN [facility]10-01-2024 16:00-0400 SaO2% (BldA) [Mass fraction]99 %PHYSICIAN [facility]10-01-2024 16:00-0400Systolic blood mm[Hg]PHYSICIAN [facility]10-01-2024 06:00-0400Body noxrgx48 kgPHYSICIAN [facility]09-30-2024 16:55-0400Body jbxvej016.72 cmPHYSICIAN [facility]09-29-2024 06:00-0400 Inhaled oxygen flow rate2 L/minPHYSICIAN [facility]09-28-2024 10:00-0400Inhaled oxygen itbzgrplxlfwx31 %PHYSICIAN [facility]09-23-2024 17:01-0400Diastolic blood scmulqrw80 mm[Hg]PHYSICIAN [facility]09-23-2024 17:01-0400 Heart rate82 /minPHYSICIAN [facility]09-23-2024 17:01-0400Respiratory rate12 /minPHYSICIAN NO [facility]09-23-2024 17:01-6521MvS6% (BldA) [Mass fraction]100 %PHYSICIAN NO [facility]09-23-2024 17:01-0400Systolic blood vyfvlikr815 mm[Hg]PHYSICIAN NO [facility]09-23-2024 15:25-0400 Inhaled oxygen fehthtvhmbvhc705 %PHYSICIAN [facility]09-23-2024 12:14-0400Inhaled oxygen flow rate15 L/minPHYSICIAN [facility]09-23-2024 10:17-0400Body bgwaqosjfbl57.1 [degF]PHYSICIAN [facility]09-23-2024 10:11-0400 Body jrrqzy702.72 cmPHYSICIAN [facility] 08-12-2024 10:11-0400Body syjeju80.6 kgPHYSICIAN [facility]04-17-2023 16:15-0400Body pbtosc807.72 Julio Camelramon Langford Other [employer] Other 04-17-2023 16:15-0400Body mass index (BMI) [Ratio] 26.06 kg/m5DcxwtsKaren Langford Other [employer] Other 04-17-2023 16:15-0400Body nvrmjqyzpjg97.3 [degF]Karen Anastasiya Other [employer] Other 04-17-2023 16:15-0400Body zfsgba20.75 kgKaren Langford Other [employer] Other 04-17-2023 16:15-0400Respiratory rate18 /minKaren Langford Other [employer] Other 04-17-2023 16:15-3688TwN5% (BldA) [Mass fraction]96 % Karen Langford Other [facility] [employer] Other 02-28-2023 12:26-0500Body ekaxwjqztlo67.2 [degF] Chase Peguero MD Work Phone: [facility]ITALClrTouchNXABID70-17-0166 12:26-0500Diastolic blood begvbzsp09 mm[Hg]Chase Peguero MD Work Phone: [facility]ITALClrTouchFFQDCF29-90-6453 12:26-0500Heart rate92 /Jonathan Peguero MD Work Phone: [facility]ITALClrTouchETQYYG77-70-2546 12:26-0375IeL9% (BldA) [Mass fraction]99 %Chase Peguero MD Work Phone: [facility]ITALClrTouchHHOELV16-67-0244 12:26-0500Systolic blood fnwkoajl95 mm[Hg]Chase Peguero MD Work Phone: [facility]ITALClrTouchKULETC23-10-7031 08:35-0500 Respiratory rate17 /Jonathan Peguero MD Work Phone: B [facility] OBMIAR15-36-3313 06:19-0500Body mass index (BMI) [Ratio]22.46 kg/j7FqfxzkipaChase Peguero MD Work Phone: [facility]ITALClrTouchMUQYUO04-34-2023 06:19-0500Body lfceqp96 kgAlesabrina Peguero MD Work Phone: B [facility] VALLEYCmed [facility] HEALTHClrTouchENWZDE46-98-2685 10:00-0500Body yfldgp760.8 cmAyosvany Peguero MD Work Phone: BON [facility] VALLEYCmed UC HEALTHClrTouchKNDOCD72-71-9264 18:51-0400Heart rate95 /Alysa Ramirez MD Work Phone: BON [facility]11-02-2022 18:51-0400 Respiratory rate26 /Alysa Ramirez MD Work Phone: BON [employer] DEDIJD33-26-7711 16:30-0400Diastolic blood czykgwkd36 mm[Hg]Helen Ramirez MD Work Phone: BON [employer] ARPWVR17-41-2776 16:30-3991HiJ8% (BldA) [Mass fraction]95 %Helen Ramirez MD Work Phone: BON [employer] FAXBQU66-88-6702 16:30-0400Systolic blood qleqtkcv428 mm[Hg]Helen Ramirez MD Work Phone: BON [facility]11-02-2022 14:17-0400Body .8 Dirk Ramirez MD Work Phone: BON [employer] IGLTMH13-60-8040 14:17-0400Body mass index (BMI) [Ratio]22.96 kg/m2Helen Ramirez MD Work Phone: BON [employer] QGBDBN47-65-7578 14:17-0400Body oztkppdzymu37.4 [degF]Helen Ramirez MD Work Phone: B[facility] [employer] YGDIGM64-47-8716 14:17-0400Body dkgmog25.58 kgHelen Ramirez MD Work Phone: BON [facility] Encounters Encounter DateEncounter TypeCare ProviderFacilityStart: 05-20-2025 End: 79-04-9344Nvvkihbdg identifierSusan Tess Braden [facility] Work Phone: [facility] Centertart: 05-20-2025 ambulatorySusan Tess Rice [facility] DEPARTMENTStart: 08-20-2024 Non-patient / Non-visitPHYSICIAN NO [facility]ILYFirelands [facility] [place] Work Phone: Start: 85-52-3018Exm-patient / Non-visitPHYSICIAN NO [facility]ILYYad[facility] Pulmonary Disease Work Phone: Start: 47-52-9967Rdx-patient / Non-visitPHYSICIAN NO [facility] Rehab and Spine Work Phone: Start: 58-82-6707Kqe-patient / Non-visitPHYSICIAN NO [facility] Nephrology [place] Work Phone: Start: 58-61-5094Ypb-patient / Non-visitPHYSICIAN NO [facility] Pulmonary Disease Work Phone: Start: 08-12-2024 End: 32-47-0049Iadwlofdci and management of inpatientPHYSICIAN NO [facility] Work Phone: Start: 53-22-0399kcsglggvddLCPC SELFAvita [place] HospitalStart: 76-30-9538rbaeygoiorH. RERE NOVOhioHealth Hardin Memorial Hospitalta [place] HospitalStart: 71-73-0978ngwukjqjknW. RERE NOVSAINT FRANCIS HOSPITAL & MEDICAL CENTERAvita [place] HospitalStart: 06-29-2023 ambulatoryP. RERE NOVACKAvita [place] HospitalStart: 27-97-6935opxpuxynvgH. RERE NOVACKAvita [place] HospitalStart: 92-15-3768nxtwcbaiwvE. RERE BK [facility] HospitalStart: 89-12-1788wkjrkopxffK. RERE NOVSAINT FRANCIS HOSPITAL & MEDICAL CENTERAvita [place] HospitalStart: 14-08-5716yzejbuwhdsB. RERE NOVACKAvita [place] HospitalStart: 90-60-0658kjflapqybbW. RERE NOVACKAvita [place] HospitalStart: 03-29-2023 ambulatoryP. RERE NOVSAINT FRANCIS HOSPITAL & MEDICAL CENTERAvita [place] HospitalStart: 80-77-5827fwvduasnikP. RERE NOVSAINT FRANCIS HOSPITAL & MEDICAL CENTERAvita [place] HospitalStart: 03-06-2023 End: 95-97-7870slknefihbgSsfidx Dymond Other [facility] [employer] Other Start: 59-96-4892Nhkekf outpatient new 20 minutes Karen LangfordFPG Urgent Care ClydeStart: 01-23-2023 End: 42-42-9108xvlsacndneHKENKC [facility] Centerclementina [facility] Hospitaltart: 01-23-2023 End: 57-34-8436Tkmyaqcugn hospital visit by physicianMTHZ LaboratoryStart: 01-12-2023 End: 51-19-2066Cafcbnevrd and management of inpatientZAINULABEDIN WAQARMGlendale Memorial Hospital and Health Centertart: 01-12-2023 End: 21-92-8671Nogtryagxt and management of inpatientAlexandlizzeth Peguero MD Work Phone: [facility]ITALC Onc/Med SurgComment on above:Seizure (HCC) (Primary Dx); Alcohol withdrawal syndrome without complication (HCC)Start: 09-28-2022 End: 92-11-3124Agkdzjavi department patient visitCOUNT INCLUDES THE [facility]ILDREN'S HOSPITALJENNY [facility] Hospitaltart: 09-21-2022 End: 40-17-7302Qyicgzhto department patient visitALESABRINA PRICEURIKMGlendale Memorial Hospital and Health Centertart: 09-21-2022 End: 21-85-5836Ajobcdwxt department patient visitSmadison Ramirez MD Work Phone: [facility] EDComment on above:Heroin overdose, undetermined intent, initial encounter (HCC) (Primary Dx); Alcohol useStart: 04-07-2021 End: 14-26-9225Ljvvyqbnr department patient visitTIMJENNY [facility]OSPITALFacility:[facility] Procedures DateProcedureProcedure DetailPerforming ClinicianStart: 15-23-6340Ituep chest X-rayPHYSICIAN NO FAMILYStart: 38-40-4515Uzyko chest X-rayPHYSICIAN NO FAMILY Start: 67-96-5774Hbvgy chest X-rayPHYSICIAN NO FAMILYStart: 73-24-6732Wqrjl chest X-rayPHYSICIAN NO FAMILYStart: 33-09-1486Hryrqgwfgbkot of transfusion reactionPHYSICIAN NO FAMILYStart: 19-76-8042Xrark chest X-rayPHYSICIAN NO FAMILY Start: 73-95-5290Qldsg chest X-rayPHYSICIAN NO FAMILYStart: 47-67-3310Gnfgm chest X-rayPHYSICIAN NO FAMILYStart: 95-77-4612Ykfhvmwm identified in Urine by CulturePHYSICIAN NO FAMILYStart: 32-74-8961Omizs culture for bacteria, including anaerobic screenPHYSICIAN NO FAMILYStart: 09-36-7696Pyizotlaxbu Panel (PCR) PHYSICIAN NO FAMILYStart: 95-91-2728Jvnvb chest X-rayPHYSICIAN NO FAMILYStart: 39-47-7605Yiuzyadl tomography of abdomen and pelvis with contrastPHYSICIAN NO FAMILYStart: 30-52-1525HZ angiography of thoraxPHYSICIAN NO FAMILYStart: 22-75-5633Xpaqb chest X-rayPHYSICIAN NO FAMILYStart: 80-33-6913MN of head without contrastPHYSICIAN NO FAMILYStart: 11-97-5943Rcgjxbcwjemdg metabolic panelErnest Rosalba Guan CNP Work Phone: Start: 12-07-7111Fepau count complete auto&auto difrntl wbcZainulabedin Charles KIDD Work Phone: Start: 06-89-8937Wd abdominal real time w/image limitedVeronicramon Abarca MD Work Phone: Start: 52-54-5291Pdfihti function panelVeronicramon Abarca MD Work Phone: Start: 36-61-8064Eaxz binding capacityVeronicramon Abarca MD Work Phone: Start: 31-37-4676RXADKC MUSCLE ANTIBODY QUANTVeronicramon Abarca MD Work Phone: Start: 84-24-9356YIMVYFO B12 & FOLATEVerbeulah Abarca MD Work Phone: Start: 44-71-6448Znng tst prsmv instrmnt chem analyzers pr dateVerbeulah Abarca MD Work Phone: Start: 00-72-6721Gbpeocgunj microscopic onlyVeronica M Abarca MD Work Phone: Start: 15-83-1320Yzztl dip stick/tablet rgnt auto w/o microscopySapna Abarca MD Work Phone: Start: 93-85-6684Ifxmime blood reagent strip Segundo Soto MD Work Phone: Start: 24-34-5779Ldwyhhr blood reagent strip Segundo Soto MD Work Phone: Start: 92-57-1268Cundhgq blood reagent strip Segundo Soto MD Work Phone: Start: 01-13-2023 End: 07-87-9030PBMPOUB, BLOOD 1Sapna Abarca MD Work Phone: Start: 08-65-1713Uzhqq of ethanolSapna Abarca MD Work Phone: Start: 54-88-8566Wogpphm ionizedSapna Abarca MD Work Phone: Start: 52-57-6811Boovg panelSapna Abarca MD Work Phone: Start: 84-80-8833BSABVJTGGOXMI ANTIBODIES, M2, IGG Sapna Abarca MD Work Phone: Start: 98-26-1946Gtksoex blood reagent stripSyudy Zamarripa MD Work Phone: Start: 01-13-2023 End: 01-75-1550Zgbcjxu blood reagent stripSyudy Zamarripa MD Work Phone: Start: 59-92-7645Oxluxdp blood reagent stripChase Peguero MD Work Phone: Start: 61-55-9006Tucgknvjod exam chest single view Macho Mñuoz MD Work Phone: Start: 46-71-0418Gxqjq of acetaminophenChyung Muñoz MD Work Phone: Start: 02-20-8569Fylcf of ethanolMacho Muñoz MD Work Phone: Start: 37-27-9869Rxozl of salicylateMacho Muñoz MD Work Phone: Start: 01-12-2023 End: 04-69-6107Yxtpvazkyadmd metabolic panelMacho Muñoz MD Work Phone: Start: 70-58-6277TKKDE TRICYCLIC SC,BChryajaira Muñoz MD Work Phone: Start: 07-42-1060Iia routine ecg w/least 12 lds i&r onlyMacho Muñoz MD Work Phone: Start: 01-12-2023 End: 92-69-9263KUNWBFW, IONIC (POC)Chase Peguero MD Work Phone: Start: 01-12-2023 End: 07-11-7533EYDPAQXQQR W/GFR POINT OF CAREChase Peguero MD Work Phone: Start: 01-12-2023 End: 82-61-9328UMFLDBFOPJBF PLUSAlesabrina Peguero MD Work Phone: Start: 01-12-2023 End: 47-20-6298KZSKRB ACID,POINT OF CAREChase Peguero MD Work Phone: Start: 01-12-2023 End: 95-91-1995PUGHJP BLOOD GAS, POINT OF CAREChase Peguero MD Work Phone: Start: 17-53-2366Toxvp of Guero Geronimo DO Work Phone: Start: 82-21-8032Ujlrrowbedyzw metabolic panelSylvie Geronimo DO Work Phone: Plan of Treatment DateCare ActivityDetailAuthorStart: 03-70-5363Twwewwyf, EmcarissaGood Samaritan Medical Center Work Phone: Start: 58-39-0774NmkiGood Samaritan Medical Center Work Phone: Start: 08-20-2024 End: 69-83-0037RqstjlumgSt. Rita's Hospitaltart: 58-71-6231HigfsrhmzSt. Rita's Hospitaltart: 00-39-4371Ugxpszkz to rehabilitation physician [facility] Hospitaltart: 13-40-0610PjrotryccSt. Rita's Hospitaltart: 81-64-1640Wteynczb to nephrologOhioHealth Pickerington [facility] Start: 03-57-9287MejkvgobvSt. Rita's Hospitaltart: 78-22-9085Wbttnubm to nephrologMercy Health St. Elizabeth Boardman Hospitaltart: 89-29-9912Znnupvlhfdju [facility] Hospitaltart: 08-12-2024 End: 48-51-4818BctmpiagtSt. Rita's Hospitaltart: 01-38-0486Fwiurwbt admissionSt. Rita's Hospitaltart: 96-01-5842Xfopabva identified in Blood by CultureSt. Rita's Hospitaltart: 08-60-0927Widsnvok identified in Urine by CultureSt. Rita's Hospitaltart: 08-12-2024 Insertion of Endotracheal Airway into Trachea, Via Natural or Artificial Opening EndoscopicInsertion of Endotracheal Airway into Trachea, Via Natural or Artificial Opening EndoscopicSt. Rita's Hospitaltart: 08-12-2024 Insertion of Infusion Device into Superior Vena Cava, Percutaneous Approach Insertion of Infusion Device into Superior Vena Cava, Percutaneous Approach [facility] Hospitaltart: 46-08-3047Gwtwooxblak Ventilation, Greater than 96 Consecutive HoursRespiratory Ventilation, Greater than 96 Consecutive HoursSt. Rita's Hospitaltart: 02-49-4483Nowqnhupoa procedureSt. Rita's Hospitaltart: 99-04-6661Rzfikqrzv vaccination Flu vaccine (#1)[facility] Centerart: 57-59-8077Wsdqaoshm for malignant neoplasm of cervixBON [facility]: 15-72-3488Bnxwaedcl for malignant neoplasm of cervixPap smearBON [facility]: 2010 DTaP/Tdap/Td vaccine (1 - Tdap)DTaP/Tdap/Td vaccine (1 - Tdap)[facility]: 35-53-3268Fpycgxbdt C screeningHepatitis C screenSouth[facility] Hospital: 68-55-8855CAO screeningHIV [facility]: 44-04-0034Dnnlosdblu ScreenDepression [facility]: 73-40-9246Kuymromzxkey 0-64 years Vaccine (1 - PCV)Pneumococcal 0-64 years Vaccine (1 - PCV)[facility]: 99-39-8559Oipffmhon vaccine (1 of 2 - 2-dose childhood series)Varicella vaccine (1 of 2 - 2-dose childhood series)[facility]: 22-13-3582QVRWR-19 Vaccine (#1)COVID-19 Vaccine (#1)[facility] pulse oximetryPulse oximetry, continuous Respiratory Care Routine Every 4hr until discontinued starting 01/13/2023 [facility] Phone: comment on above:Every 4hr until discontinued starting 01/13/2023ulture, Blood 1BON [facility] Phone: eKG 12 leadEKG 12 lead ECG Routine As Needed until discontinued starting 01/13/2023 [facility] Phone: comment on above:As Needed until discontinued starting 01/13/2023lucose [Mass/volume] in Serum or PlasmaPOCT Glucose Point of Care Testing STAT As Needed until discontinued starting 01/12/2023 [facility] Phone: comment on above:As Needed until discontinued starting 01/12/2023Oxygen therapy [Minimum Data Set]Initiate Oxygen Therapy Protocol Respiratory Care Routine As Needed until discontinued starting 01/13/2023 [facility] Phone: comment on above:As Needed until discontinued starting 01/13/2023atient EducationAlcohol Use Disorder (DC) Know your [facility] Work Phone: Patient [facility] Work Phone: End: 07-13-4849KCI Blood GasPOC Blood Gas Point of Care Testing STAT One Time for 1 Occurrences starting 01/13/2023 until 01/13/2023[facility] Work Phone: comment on above:One Time for 1 Occurrences starting 01/13/2023 until 01/13/2023 End: 26-46-2388WDF Blood Gas and ChemistryPOC Blood Gas and Chemistry Point of Care Testing STAT One Time for 1 Occurrences starting 01/12/2023 until 01/12/2023[facility] Work Phone: comqnpj on above:One Time for 1 Occurrences starting 01/12/2023 until 01/12/2023 End: 62-42-1502BMBTFNWA SPECIMENBON [facility] Work Phone: comment on above:Once for 1 Occurrences starting 01/14/2023 until 01/14/2023 End: 77-30-3485Lmijjnqdgh with Reflex to CultureUrinalysis with Reflex to Culture Lab STAT One Time for 1 Occurrences starting 09/21/2022 until 09/21/2022 [facility] Work Phone: comgopd on above:One Time for 1 Occurrences starting 09/21/2022 until 09/21/2022 End: 74-76-3557Kgtmz Drug ScreenUrine Drug Screen Lab STAT One Time for 1 Occurrences starting 09/21/2022 until 09/21/2022[facility] Work Phone: comwcls on above:One Time for 1 Occurrences starting 09/21/2022 until 09/21/2022 Payers DatePayer CategoryPayerPolicy [id number] Health [id number]7360-97-8563 Private Health [id number] 2..840.1.746638.3.579.[id number] 2..840.1.167890.3.57[id number] 2..840.1.947323.3.57[id number] 2.840.1.928101.3.57[id number] 2..840.1.856075.3.57[id number] 2.840.1.049280.3.57[id number] 2.840.1.195129.3.57[id number] 2..840.1.315180.3.57[id number] 2..840.1.769711.3.57[id number] 2.840.1.880325.3.57[id number] 2..840.1.930310.3.57[id number] 2.840.1.622905.3.57[id number] 2..840.1.087026.3.57[id number] 2..840.1.245847.3.57[id number] 2..0.1.036954.3.57[id number] 2..840.1.945077.3.579.2.318Gj[id number] 2..0.1.714567.3.579.2.531 Social History DateTypeDetailFacilityStart: 99-11-5483Dnvameu smoking status NHISSmokes tobacco dailyBANNER REH[facility]ATION [facility] [employer] Phone: History of tobacco useCigarette SmokerGROVER MEMORIAL HOSPITALAviantLogic Phone: start: 40-88-9037Wckecmt use and exposureUser of smokeless tobaccoGROVER MEMORIAL HOSPITALAviantLogic Phone: start: 09-21-2022 End: 93-05-5418Venkuig intakeCurrent drinker of alcohol (finding)[facility] HOSPITALAviantLogic Phone: start: 09-21-2022 End: 93-79-1923Ihnjulu intakeGROVER MEMORIAL HOSPITALAviantLogic Phone: start: 09-22-2022 End: 97-81-4486Zaakxkv SDOH Alcohol Olqqebzpq0QQJ SECA[employer] Phone: start: 05-10-8492Zst Assigned At BirthNot on [facility] [employer] Phone: start: 09-11-2022 End: 02-43-0106Cfvcixka to SARS-CoV-2 (event)Not sureBANNER REHABILITATION HOSPITAL [facility] [employer] Phone: start: 92-07-1741Ipdayfq SDOH Alcohol Std Anatsw1KTC [facility] EAST VALLEYAviantLogic Phone: start: 16-13-1499Uxemuft SDOH Alcohol Jyqlp0ERQ [facility] Work Phone: sex Assigned At BirthSex Assigned At [facility] [employer] Other Start: 08-12-2024 End: 07-01-6356Kahscvo smoking status NHISUnknown if ever smokedSt. Rita's Hospitaltart: 31-10-9931Ayt Assigned At [facility] Hospitaltart: 29-63-9331Xaeoyvb intakeAlcohol Use [facility] Medical Centerexual OrientationStrastraith hospital for special surgery or heterosexualGood Samaritan Medical Center Work Phone: Start: 97-52-8661Bkfwyz identityFeLenox Hill HospitalNEGATED: Highlighted rowProMedica Defiance Regional Hospital Goals DatePatient GoalDesired Activity/State Functional Status NealLqykahnjbyQqhyzzJstapdwp84-03-3840Fcnhfdmyuu statusPatient at Baseline [facility] Work Phone: Mental Status RkuvBcwhgoizfsZpaxpvWpweerat52-82-8388Maqihjqvp functionCognitive Status Patient at BaselineZanesville City Hospital Work Phone: Clinical Notes 09-21-2022 to 08-20-2024 Note Date & QfgzBfhgTzgyvsqa16-57-3551 Progress note Author Collette Zaragoza [facility] August 20, 2024 5:25pmNote Date/TimeOct2023 5:24pm[place] [address] Nephrology Progress Note Signed with Addenda Patient: German Jacob MR#: [id number] : 1990 Acct:[id number] Age/Sex: 33 / F Adm Date: 4 Loc: Room: 1Q0143-6 Type: ADM IN Attending Dr: Chidi Rick MD Copies to: ~ ADDENDUM1 Since renal function is improving, will discontinue Navarro catheter. Increase activities as tolerated. Addendum Documented By: MD Collette Zaragoza 08/20/24 3455 Addendum Signed By: <Electronically signed by MD Collette Zaragoza> 08/20/24 1725 Date of Service: 08/20/2024 Subjective Subjective Narrative: [...] He heard gurgling breathing sounds and noticed foamingout of her mouth and subsequently called EMS. 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 She follows simple [...] Q8HR FELIPE Stop: 08/12/25 21:59 Last Admin: 08/20/24 14:46 [...] 100 mls @ 200 mls/hr IV Q24H [facility] Stop: 08/21/24 10:29 Last Infusion: 08/20/24 11:20 Dose: Infused Nicotine (Nicotine Patch 21 Mg/24hr 1 Each Patch.Td24) 1 each TRANSDERML DAILY [facility] Stop: 09/28/24 09:01 Last Admin: 08/20/24 08:45 Dose: Not Given Ondansetron HCl (Ondansetron 4 Mg/2 Ml Vial) 4 mg IV-PUSH Q8H PRN PRN Reason: Nausea And Vomiting Stop: 08/12/25 18:07 Pantoprazole Sodium (Pantoprazole 40 Mg Vial) 40 mg IV-PUSH DAILY [facility] Stop: 08/13/25 08:59 Last Admin: 08/20/24 08:46 Dose: 40 mg Potassium Chloride (Potassium Chloride Er 20 Meq Tab.Er.Prt) 40 meq PO DAILY PRN PRN Reason: Hypokalemia Stop: 08/12/25 18:07 Last Admin: 08/20/24 06:31 Dose: 40 meq Sodium Chloride (Sodium Chloride 0.9 % 10 Ml Syringe) 0 ml IV-PUSH QSHIFT [facility] Stop: 08/12/25 21:59 Last Admin: 08/20/24 14:47 [...] physician into a diagnostic report(s) for German Marcio Jacob. I have reviewed the report(s) and [...] setting of infection. Hemoglobin and platelet count areimproving. (7) Hypernatremia: Assessment/Problem Details: Improving with adequate [...] <Electronically signed by MD Collette Zaragoza> 08/20/241723 [facility] Work Phone: 1(535) 477-964110-01-2024 Progress note Author Chidi Rick [facility] August 20, 2024 2:56amNote Date/TimeSeptember 2023 7:52pm[place] [address] Hospitalist Progress Note Signed Patient: German Jacob MR#: [id number] : 1990 Acct:[id number] Age/Sex: 33 / F Adm Date: 4 Loc: Room: [address] [place] [address] Type: ADM IN Attending Dr: Chidi Rick [...] By: <Electronically signed by Chidi Rick MD> 08/20/24255 [facility] Work Phone: 1(971) 560-979810-01-2024 Progress note Author Collette Zaragoza [facility] August 19, 2024 10:29pmNote Date/TimeSept2023 10:29pm[place] [address] Nephrology Progress Note Signed Patient: German Jacob MR#: [id number] : 1990 Acct:[id number] Age/Sex: 33 / F Adm Date: 4 Loc: Room: 7Z2935-3 Type: ADM IN Attending Dr: Chidi Rick [...] He heard gurgling breathing sounds and noticed foamingout of her mouth and subsequently called EMS. 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 She follows simple [...] Q8HR FELIPE Stop: 08/12/25 21:59 Last Admin: 08/19/24 21:34 [...] 100 mls @ 200 mls/hr IV Q24H [facility] Stop: 08/21/24 10:29 Last Admin: 08/19/24 10:00 Dose: 200 mls/hr Nicotine (Nicotine Patch 21 Mg/24hr 1 Each Patch.Td24) 1 each TRANSDERML DAILY [facility] Stop: 09/28/24 09:01 Last Admin: 08/19/24 08:38 Dose: 1 each Ondansetron HCl (Ondansetron 4 Mg/2 Ml Vial) 4 mg IV-PUSH Q8H PRN PRN Reason: Nausea And Vomiting Stop: 08/12/25 18:07 Pantoprazole Sodium (Pantoprazole 40 Mg Vial) 40 mg IV-PUSH DAILY [facility] Stop: 08/13/25 08:59 Last Admin: 08/19/24 08:36 Dose: 40 mg Potassium Chloride (Potassium Chloride Er 20 Meq Tab.Er.Prt) 40 meq PO DAILY PRN PRN Reason: Hypokalemia Stop: 08/12/25 18:07 Last Admin: 08/19/24 11:15 Dose: 40 meq Sodium Chloride (Sodium Chloride 0.9 % 10 Ml Syringe) 0 ml IV-PUSH QSHIFT [facility] Stop: 08/12/25 21:59 Last Admin: 08/19/24 21:38 [...] that did improve. Blood pressure is up of686q. She has good urine output with furosemide. [...] setting of infection. Hemoglobin and platelet count areimproving. (7) Hypernatremia: Assessment/Problem Details: Improving with adequate [...] <Electronically signed by MD Collette Zaragoza> 08/19/242228 [facility] Work Phone: 1(394) 313-417709-30-2024 Progress note Author Dora Hong [facility] August 19, 2024 5:24pmNote Date/TimeSeptember 2023 5:24pm[place] [address] Pulmonology Progress Note Signed Patient: German Jacob MR#: [id number] : 1990 Acct:[id number] Age/Sex: 33 / F Adm Date: 4 Loc: Room: [address] [place] [address] Type: ADM IN Attending Dr: Chidi Rick [...] By: <Electronically signed by Dora Hong MD> 08/19/241723 [facility] Work Phone: 1(334) 573-783609-30-2024 Consult note Author Macho Adan [facility] August 19, 2024 2:29pmNote Date/TimeSept2023 9:22[place] [address] Physiatry (Rehab) Consult Note Signed Patient: German Jacob MR#: [id number] : 1990 Acct:[id number] Age/Sex: 33 / F Adm Date: 4 Loc: Room: [address] [place] [address] Type: ADM IN Attending Dr: Chidi Rick [...] the hospital after being found down by deepali. The patient very agitated when she arrived to the ED and was intubated in the due to respiratory failure. PEr chartreview, the patient had recently been in a [...] UTI. She was also found to have anAKI on admission, likely acute tubular injury and [...] negative unless noted below or in HPI [facility] Medical History (Updated 08/19/24 @ 14:20 [...] % (Auto) 55.0 Lymph % (Auto) 29.9 Bent % (Auto) 12.6 Eos % (Auto) 1.9 Baso % (Auto) 0.6 Nucleat RBC Rel Count 0.2 Neut # (Auto) 5.0 Lymph # (Auto) 2.7 Bent # (Auto) 1.1 H Eos # (Auto) [...] consult as well for cog eval as wellas bedside swallow eval and treat -Thanks for the consult Patient was personally seen by me, Dr. Adan, on the day of encounter, reviewed the history and the relevant portions of the chart, including current orders, allied health and financial management consultant notes, labs/imaging and performed mckeon elements of exam and I formulated the plan of care and facilitated the medical decision making. I completed a substantive portion of this encounter, the medical decision makingportion of this note in its entirety, including Allied health note review, nursing note review, financial management consultant note review,discussion with nursing and case management, and more than 50% of my time was spent on counseling and coordination of care, time spent 65 minutes Documented By: Macho Adan MD [id number] Signed By: <Electronically signed by Macho Adan MD> 08/19/24 1429 [facility] Work Phone: 1([phone]) [phone] Progress note Author Mike Verduzco [facility] August 18, 2024 11:28pmNote Date/TimeSeptember 2023 11:[address]pm[address] [address] Hospitalist Progress Note Signed Patient: German Jacob MR#: [id number] : 1990 Acct:[id number] Age/Sex: 33 / F Adm Date: 4 Loc: Room: [address] [place] [address] Type: ADM IN Attending Dr: Mike Verduzco [...] sedating medications. Family reports she has had substanceissues for greater than 15 years -Surgical Services Coordinator on cessation on discharge -Continuing on home gabapentin -Adding clonidine PRN on due to hypotension and possible withdrawal CODE STATUS: Full code Documented By: Mike Verduzco MD 4 [id number] Signed By: <Electronically signed by Mike Verduzco MD> 08/18/24 4623 [facility] Work Phone: 1(261) [phone] Progress note Author Rolo Perez [facility] August 18, 2024 12:10pmNote Date/TimeSeptember 2023 12:10pm[address] [address] Nephrology Progress Note Signed Patient: German Jacob MR#: [id number] : 1990 Acct:[id number] Age/Sex: 33 / F Adm Date: 4 Loc: Room: [address] [place] [address] Type: ADM IN Attending Dr: Mike Verduzco MD Copies to: ~ Date of Service: 08/18/2024 Subjective Subjective Narrative: Patient is a 33-year-old female with a past medical history of bulimia, polysubstance abuse including EtOH, tobacco, IV drug use, THC who presented to the emergency department after being found down by caterina?. Patient was recentlydischarged from a detox facility [...] He heard gurgling breathing sounds and noticed foamingout of her mouth and subsequently called EMS. 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 Musculoskeletal: No swelling [...] 800 Mg Tablet) 800 mg PO Q12HR [facility] Stop: 08/17/25 20:59 Last Admin: 08/18/24 09:21 Dose: 800 mg Heparin Sodium (Porcine) (Heparin 5,000 Unit/Ml Vial) 5,000 unit SUBCUT Q8HR [facility] Stop: 08/12/25 21:59 Last Admin: [...] shock. She has no evidence of obstructive uropathyon CAT scan. Her renal function is declining. [...] signed by Rolo Perez MD> 08/18/24 1210 [facility] Work Phone: 1(118) [phone] Progress note Author Russell Gunter [facility] August 18, 2024 11:12amNote Date/TimeSeptember 2023 11:12am[place] [address] Pulmonology Progress Note Signed Patient: German Jacob MR#: [id number] : 1990 Acct:[id number] Age/Sex: 33 / F Adm Date: 4 Loc: Room: [address] [place] [address] Type: ADM IN Attending Dr: Mike Verduzco [...] culture positive for ESBL. I will continue withthe ertapenem for a total of 8 days. [...] signed by Russell Gunter MD> 08/18/24 1112 [facility] Work Phone: [phone]) [phone] Progress note Author Mike Verduzco [facility] August 17, 2024 2:55pmNote Date/TimeSeptember 2023 2:43pm[place] [address] Hospitalist Progress Note Signed Patient: German Jacob MR#: [id number] : 1990 Acct:[id number] Age/Sex: 33 / F Adm Date: 4 Loc: Room: [address] [place] [address] Type: ADM IN Attending Dr: Mike Verduzco [...] denies any fever/chill, chest pain, nausea/vomiting or othersymptoms. Exam Physical Exam Vital Signs: Temp Pulse Resp BP Pulse Ox O2 Del Method O2 Flow Rate 98.1 F 61 17 170/103 H 96 Nasal Cannula 3 08/17/24 08:08/17/24 12:08/17/24 12:00 08/17/24 12:00 08/17/24 12:08/17/24 12:08/17/24 12:00 FiO2 30 08/17/24 10:00 Narrative: Constitutional: [...] 10:30 Dextrose IV 08/16/25 19:59 0 mcg/kg/hr .[id number] [facility] 0 mls/hr Titration Protocol 0.2 MCG/KG/HR Potassium Chloride 20 meq/ 1,010 mls @ 75 mls/hr 08/17/24 12:15 08/17/24 12:45 Dextrose IV 08/17/25 12:14 75 mls/hr .[id number] [facility]EL[facility] Administration Magnesium Hydroxide 30 ml 08/12/24 [...] substance issues for greater than 15 years -Surgical Services Coordinator on cessation on discharge -Continuing on home gabapentin CODE STATUS: Full code Documented By: Mike Verduzco MD 4 [id number] Signed By: <Electronically signed by Mike Verduzco MD> 08/17/24 2281 [facility] Work Phone: 1(753) 579-111009-28-2024 Progress note Author Russell Gunter [facility] August 17, 2024 12:05pmNote Date/TimeSeptember 2023 12:05pm[place] [address] Pulmonology Progress Note Signed Patient: German Jacob MR#: [id number] : 1990 Acct:[id number] Age/Sex: 33 / F Adm Date: 4 Loc: Room: [address] [place] [address] Type: ADM IN Attending Dr: Mike Verduzco [...] culture positive for ESBL. I will continue withthe ertapenem and azithromycin. (3) Altered mental status: [...] <Electronically signed by Russell Gunter MD> 08/17/24 1205 [facility] Work Phone: 1(326) 226-338309-28-2024 Progress note Author Rolo Perez [facility] August 17, 2024 11:36amNote Date/TimeSept2023 10:[place] [address] Nephrology Progress Note Signed Patient: German Jacob MR#: [id number] : 1990 Acct:[id number] Age/Sex: 33 / F Adm Date: 4 Loc: Room: [address] [place] [address] Type: ADM IN Attending Dr: Mike Verduzco [...] He heard gurgling breathing sounds and noticed foamingout of her mouth and subsequently called EMS. [...] Lasix and had a good urine output. Doll Maker has ordered the CPAP trial. 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 and sedated Musculoskeletal: No swelling or [...] Puff/18 Gm Inhaler) 6 puff VENT Q6HR [facility] Stop: 08/13/25 00:00 Last Admin: 08/17/24 05:44 Dose: 6 puff Chlorhexidine Gluconate (Chlorhexidine Gluconate 0.12% 15 Ml Udc) 15 ml MUCOUS MEM BID [facility] Stop: 08/12/25 20:59 Last Admin: 08/17/24 08:36 Dose: 15 ml Docusate Sodium (Docusate Liquid 100 Mg/10 Ml Udc) 100 mg PO BID [facility] Stop: 08/12/25 12:29 Last Admin: 08/17/24 08:36 Dose: 100 mg Gabapentin (Gabapentin 300 Mg/6 Ml Udc) 800 mg PO Q12HR [facility] Stop: 08/16/25 11:59 Last Admin: 08/17/24 09:14 Dose: 800 mg Heparin Sodium (Porcine) (Heparin 5,000 Unit/Ml Vial) 5,000 unit SUBCUT Q8HR [facility] Stop: 08/12/25 21:59 Last Admin: 08/17/24 05:48 Dose: 5,000 unit Midazolam HCl (Versed) 100 mg in 100 mls @ 1 mls/hr IV .Q24H [facility]; Protocol Stop: 02/08/25 14:14 Last [...] 100 mls @ 200 mls/hr IV Q24H [facility] Stop: 08/21/24 10:29 Last Admin: 08/17/24 09:15 Dose: 200 mls/hr Propofol (Diprivan) 1,000 mg in 100 mls @ 12 mls/hr IV .Q8H20M [facility]; Protocol Stop: 08/14/25 09:29 Last Titration: 08/17/24 09:16 Dose: 10 mcg/kg/min, 6 mls/hr Dexmedetomidine HCl 400 mcg/ (Dextrose) 100 mls @ 5.15 mls/hr IV .[id number] [facility]; Protocol Stop: 08/16/25 19:59 Last Admin: 08/17/24 09:16 Dose: 1 mcg/kg/hr, 25.75 mls/hr Potassium Chloride/Dextrose/Sod Cl (D5w-0.9 % Nacl-20 Meq Kcl) 1,000 mls @ 75 mls/hr IV .[id number] [facility] Stop: 08/17/25 09:59 Last Admin: 08/17/24 09:53 [...] 40 Mg Vial) 40 mg IV-PUSH DAILY [facility] Stop: 08/13/25 08:59 Last Admin: 08/17/24 08:36 Dose: 40 mg Potassium Chloride (Potassium Chloride Er 20 Meq Tab.Er.Prt) 40 meq PO DAILY PRN PRN Reason: Hypokalemia Stop: 08/12/25 18:07 Propofol (Propofol - Infusion Bolus 1,000 Mg/100 Ml Vial) 0 mg IV PROTOCOL PRN PRN Reason: Bolus Documentation Stop: 08/14/25 09:29 Sennosides (Sennosides Syrup 8.8 Mg/5 Ml Udc) 8.8 mg PO BID [facility] Stop: 08/12/25 20:59 Last Admin: 08/17/24 08:36 Dose: 8.8 mg Sodium Chloride (Sodium Chloride 0.9 % 10 Ml Syringe) 0 ml IV-PUSH QSHIFT [facility] Stop: 08/12/25 21:59 Last Admin: 08/17/24 05:50 [...] Pasha Vora M.D.08/17/2024 6:23 AM Dictation Location: [place] [address] Any impression(s) listed above is documentation that [...] shock. She has no evidence of obstructive uropathyon CAT scan. Her renal function is declining. [...] <Electronically signed by Rolo Perez MD> 08/17/24 1136 [facility] Work Phone: [phone]) [phone] Progress note Author Russell Gunter [facility] August 16, 2024 2:45pmNote Date/TimeSeptember 2023 2:45pm[place] [address] Pulmonology Progress Note Signed Patient: German Jacob MR#: [id number] : 1990 Acct:[id number] Age/Sex: 33 / F Adm Date: 4 Loc: Room: [address] [place] [address] Type: ADM IN Attending Dr: Mike Verduzco [...] culture positive for ESBL. I will continue withthe treponema and azithromycin. (3) Altered mental status: [...] <Electronically signed by Russell Gunter MD> 08/16/24 6158 [facility] Work Phone: [phone]) [phone] Progress note Author Mike Verduzco [facility] August 16, 2024 12:36pmNote Date/TimeSeptember 2023 12:34pm[place] [address] Hospitalist Progress Note Signed Patient: German Jacob MR#: [id number] : 1990 Acct:[id number] Age/Sex: 33 / F Adm Date: 4 Loc: Room: [address] [place] [address] Type: ADM IN Attending Dr: Mike Verduzco [...] Dose Route Start Last Admin Trade Name Diegoq PRN Reason Stop Dose Admin Acetaminophen 650 [...] substance issues for greater than 15 years -Surgical Services Coordinator on cessation on discharge CODE STATUS: Full code Documented By: Mike Verduzco MD 4 1229 Signed By: <Electronically signed by Mike Verduzco MD> 08/16/24 1236 [facility] Work Phone: [phone]) [phone] Progress note Author Rolo Chris [facility] August 16, 2024 11:38amNote Date/TimeSeptember 2023 11:[address] [address] Nephrology Progress Note Signed Patient: German Jacob MR#: [id number] : 1990 Acct:[id number] Age/Sex: 33 / F Adm Date: 4 Loc: Room: [address] [place] [address] Type: ADM IN Attending Dr: Mike Verduzco [...] to bed Monday. When he awoke Monday he found her on the couch obtunded and minimally responsive. He states the patient often times willbinge and purge overnight. He heard gurgling breathing sounds and noticed foamingout of her mouth and subsequently called EMS. 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 and sedated Musculoskeletal: No swelling or [...] Puff/18 Gm Inhaler) 6 puff VENT Q6HR [facility] Stop: 08/13/25 00:00 Last Admin: 08/16/24 05:40 Dose: 6 puff Chlorhexidine Gluconate (Chlorhexidine Gluconate 0.12% 15 Ml Udc) 15 ml MUCOUS MEM BID [facility] Stop: 08/12/25 20:59 Last Admin: 08/16/24 08:26 Dose: 15 ml Docusate Sodium (Docusate Liquid 100 Mg/10 Ml Udc) 100 mg PO BID [facility] Stop: 08/12/25 12:29 Last Admin: 08/16/24 08:26 Dose: 100 mg Gabapentin (Gabapentin 300 Mg/6 Ml Udc) 800 mg PO Q6H [facility] Stop: 08/16/25 10:59 Heparin Sodium (Porcine) (Heparin 5,000 Unit/Ml Vial) 5,000 unit SUBCUT Q8HR [facility] Stop: 08/12/25 21:59 Last Admin: 08/16/24 06:37 Dose: 5,000 unit Midazolam HCl (Versed) 100 mg in 100 mls @ 1 mls/hr IV .Q24H [facility]; Protocol Stop: 02/08/25 14:14 Last Admin: 08/16/24 00:24 Dose: 10 mg/hr, 10 mls/hr Magnesium Sulfate (Magnesium Sulf 2gm-*Swfi*) 2 gm in 50 mls @ 25 mls/hr IV DAILY PRN PRN Reason: Magnesium Level < 1.7 Stop: 08/12/25 18:07 Last Infusion: 08/13/24 07:46 Dose: Infused Azithromycin (Zithromax) 500 mg in 250 mls @ 250 mls/hr IV Q24H [facility] Stop: 08/16/24 21:29 Last Admin: 08/15/24 21:15 Dose: 250 mls/hr Sodium Chloride (0.9% Sodium Chloride 500 Ml) 500 mls @ 20 mls/hr IV .Q24H PRN PRN Reason: cvp Stop: 08/14/25 01:14 Ertapenem (Invanz) 1 gm in 100 mls @ 200 mls/hr IV Q24H [facility] Last Admin: 08/15/24 09:18 Dose: 200 mls/hr Propofol (Diprivan) 1,000 mg in 100 mls @ 12 mls/hr IV .Q8H20M [facility]; Protocol Stop: 08/14/25 09:29 Last Admin: 08/16/24 06:00 Dose: 30 mcg/kg/min, 18 mls/hr Dexmedetomidine HCl 200 mcg/ (Dextrose) 50 mls @ 5.15 mls/hr IV .Q9H43M [facility]; Protocol Stop: 08/16/25 10:59 Magnesium [...] 40 Mg Vial) 40 mg IV-PUSH DAILY [facility] Stop: 08/13/25 08:59 Last Admin: 08/16/24 08:26 Dose: 40 mg Potassium Chloride (Potassium Chloride Er 20 Meq Tab.Er.Prt) 40 meq PO DAILY PRN PRN Reason: Hypokalemia Stop: 08/12/25 18:07 Propofol (Propofol - Infusion Bolus 1,000 Mg/100 Ml Vial) 0 mg IV PROTOCOL PRN PRN Reason: Bolus Documentation Stop: 08/14/25 09:29 Sennosides (Sennosides Syrup 8.8 Mg/5 Ml Udc) 8.8 mg PO BID [facility] Stop: 08/12/25 20:59 Last Admin: 08/16/24 08:25 Dose: 8.8 mg Sodium Chloride (Sodium Chloride 0.9 % 10 Ml Syringe) 0 ml IV-PUSH QSHIFT [facility] Stop: 08/12/25 21:59 Last Admin: [...] Shavon Astorga M.D.08/16/2024 7:07 AM Dictation Location: [place] [address] Any impression(s) listed above is documentation that [...] shock. She has no evidence of obstructive uropathyon CAT scan. Her renal function is declining. [...] signed by Rolo Perez MD> 08/16/24 1138 [facility] Work Phone: [phone]) [phone] Progress note Author Renny Multani [facility] August 15, 2024 6:40pmNote Date/TimeSept2023 6:40pm[place] [address] Pulmonology Progress Note Signed Patient: German Jacob MR#: [id number] : 1990 Acct:[id number] Age/Sex: 33 / F Adm Date: 4 Loc: Room: [address] [place] [address] Type: ADM IN Attending Dr: Mike Verduzco [...] signed by MD Renny Multani> 08/15/24 1840 [facility] Work Phone: [phone]) [phone] Progress note Author Mike Verduzco [facility] August 15, 2024 3:52pmNote Date/TimeSept2023 3:53pmJ[place] [address] Hospitalist Progress Note Signed Patient: German Jacob MR#: [id number] : 1990 Acct:[id number] Age/Sex: 33 / F Adm Date: 4 Loc: Room: [address] [place] [address] Type: ADM IN Attending Dr: Mike Verduzco [...] 100 Mechanical Ventilation 15 08/15/24 12:00 08/15/24 15:08/15/24 15:08/15/24 15:08/15/24 15:08/15/24 15:08/12/24 12:14 FiO2 30 [...] 24 hours. Urine culture isgrowing E. coli thatwas resistant to Unasyn. Antibiotics adjusted to IV [...] likely acute tubular injury from septic shock. Patientdoes have a history of bulimia, and we [...] substance issues for greater than 15 years -Surgical Services Coordinator on cessation on discharge CODE STATUS: Full code Documented By: Mike Verduzco MD 4 [id number] Signed By: <Electronically signed by iMke Verduzco MD> 08/15/24 7870 [facility] Work Phone: 1([phone]) 615-654709-26-2024 Progress note Author Rolo Perez [facility] August 15, 2024 11:45amNote Date/TimeSept2023 11:45am[place] [address] Nephrology Progress Note Signed Patient: German Jacob MR#: [id number] : 1990 Acct:[id number] Age/Sex: 33 / F Adm Date: 4 Loc: Room: [address] [place] [address] Type: ADM IN Attending Dr: Mike Verduzco MD Copies to: ~ Date of Service: 08/15/2024 Subjective Subjective Narrative: Patient is a 33-year-old female with a past medical history of bulimia, polysubstance abuse including EtOH, tobacco, IV drug use, THC who presented to the emergency department after being found down by fiwanda. Patient was recentlydischarged from a detox facility [...] He heard gurgling breathing sounds and noticed foamingout of her mouth and subsequently called EMS. [...] 100 Mechanical Ventilation 15 08/15/24 08:00 08/15/24 10:08/15/24 10:00 08/15/24 10:00 08/15/24 10:00 08/15/24 10:00 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 and sedated Musculoskeletal: No swelling or [...] Balance 2922.9 / 2922.9 3305 / 3305 1999 / 1999 -350 / -350 Weight 91.6 kg 99.4 kg 100 kg 100 kg Meds and Allergies Meds: Active Medications Acetaminophen (Acetaminophen 325 Mg Tablet) 650 mg PO Q6HR PRN PRN Reason: Pain Scale 1 - 3 or fever Stop: 08/12/25 18:07 Last Admin: 08/13/24 04:30 Dose: 650 mg Albuterol (Albuterol Hfa 200 Puff/18 Gm Inhaler) 6 puff VENT Q6HR [facility] Stop: 08/13/25 00:00 Last Admin: 08/15/24 05:05 Dose: 6 puff Chlorhexidine Gluconate (Chlorhexidine Gluconate 0.12% 15 Ml Udc) 15 ml MUCOUS MEM BID [facility] Stop: 08/12/25 20:59 Last Admin: 08/15/24 08:26 Dose: 15 ml Docusate Sodium (Docusate Liquid 100 Mg/10 Ml Udc) 100 mg PO BID [facility] Stop: 08/12/25 12:29 Last Admin: 08/15/24 08:26 Dose: 100 mg Heparin Sodium (Porcine) (Heparin 5,000 Unit/Ml Vial) 5,000 unit SUBCUT Q8HR [facility] Stop: 08/12/25 21:59 Last Admin: 08/15/24 05:07 Dose: 5,000 unit Midazolam HCl (Versed) 100 mg in 100 mls @ 1 mls/hr IV .Q24H [facility]; Protocol Stop: 02/08/25 14:14 Last Admin: 08/15/24 03:37 Dose: 10 mg/hr, 10 mls/hr Magnesium Sulfate (Magnesium Sulf 2gm-*Swfi*) 2 gm in 50 mls @ 25 mls/hr IV DAILY PRN PRN Reason: Magnesium Level < 1.7 Stop: 08/12/25 18:07 Last Infusion: 08/13/24 07:46 Dose: Infused Azithromycin (Zithromax) 500 mg in 250 mls @ 250 mls/hr IV Q24H [facility] Stop: 08/16/24 21:29 Last Infusion: 08/14/24 21:22 Dose: Infused Sodium Chloride (0.9% Sodium Chloride 500 Ml) 500 mls @ 20 mls/hr IV .Q24H PRN PRN Reason: cvp Stop: 08/14/25 01:14 Ertapenem (Invanz) 1 gm in 100 mls @ 200 mls/hr IV Q24H [facility] Last Admin: 08/15/24 09:18 Dose: 200 mls/hr Propofol (Diprivan) 1,000 mg in 100 mls @ 12 mls/hr IV .Q8H20M [facility]; Protocol Stop: 08/14/25 09:29 Last [...] 40 Mg Vial) 40 mg IV-PUSH DAILY [facility] Stop: 08/13/25 08:59 Last Admin: 08/15/24 08:26 Dose: 40 mg Potassium Chloride (Potassium Chloride Er 20 Meq Tab.Er.Prt) 40 meq PO DAILY PRN PRN Reason: Hypokalemia Stop: 08/12/25 18:07 Propofol (Propofol - Infusion Bolus 1,000 Mg/100 Ml Vial) 0 mg IV PROTOCOL PRN PRN Reason: Bolus Documentation Stop: 08/14/25 09:29 Sennosides (Sennosides Syrup 8.8 Mg/5 Ml Udc) 8.8 mg PO BID [facility] Stop: 08/12/25 20:59 Last Admin: 08/15/24 08:26 Dose: 8.8 mg Sodium Chloride (Sodium Chloride 0.9 % 10 Ml Syringe) 0 ml IV-PUSH QSHIFT [facility] Stop: 08/12/25 21:59 Last Admin: [...] Shavon Astorga M.D.08/15/2024 7:09 AM Dictation Location: [place] [address] Any impression(s) listed above is documentation that [...] shock. She has no evidence of obstructive uropathyon CAT scan. Her renal function is declining. [...] signed by Rolo Perez MD> 08/15/24 1145 [facility] Work Phone: 1([phone]) 215-259309-25-2024 Progress note Author Mike Verduzco [facility] August 14, 2024 7:33pmNote Date/TimeSept2023 6:07pmJ[place] [address] Hospitalist Progress Note Signed Patient: German Jacob MR#: [id number] : 1990 Acct:[id number] Age/Sex: 33 / F Adm Date: 4 Loc: Room: [address] [place] [address] Type: ADM IN Attending Dr: Mike Verduzco [...] 100 Mechanical Ventilation 15 08/14/24 16:00 08/14/24 17:08/14/24 17:00 08/14/24 17:08/14/24 17:00 08/14/24 17:00 08/12/24 [...] likely acute tubular injury from septic shock. Patientdoes have a history of bulimia, and we [...] <Electronically signed by Mike Verduzco MD> 08/14/241932 [facility] Work Phone: 1(447) 107-359609-25-2024 Progress note Author Jovanimari Nerissa [facility] August 14, 2024 12:26pmNote Date/TimeSept2023 12:26pm[place] [address] Pulmonology Progress Note Signed Patient: German Jacob MR#: [id number] : 1990 Acct:[id number] Age/Sex: 33 / F Adm Date: 4 Loc: Room: [address] [place] [address] Type: ADM IN Attending Dr: Mike Verduzco MD Copies to: ~ Date of Service: 08/14/2024 Subjective Subjective Narrative: Patient is now actually resting comfortably on Versed at 10 mg/h and fentanyl 150 mcg/h though notethat patient reportedly in the past had been [...] Preliminary Sputum - Endotrachael Rare normal respiratory rodolof 1 Day Gram Stain - Final 08/12/24 [...] signed by MD Renny Multani> 08/14/24 1226 [facility] Work Phone: 1(774) 336-519909-25-2024 Progress note Author Rolo Perez [facility] August 14, 2024 11:47amNote Date/TimeSept2023 11:46am[place] [address] Nephrology Progress Note Signed Patient: German Jacob MR#: [id number] : 1990 Acct:[id number] Age/Sex: 33 / F Adm Date: 4 Loc: Room: [address] [place] [address] Type: ADM IN Attending Dr: Mike Verduzco [...] He heard gurgling breathing sounds and noticed foamingout of her mouth and subsequently called EMS. 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 and sedated Musculoskeletal: No swelling or [...] Puff/18 Gm Inhaler) 6 puff VENT Q6HR [facility] Stop: 08/13/25 00:00 Last Admin: 08/14/24 05:09 Dose: 6 puff Chlorhexidine Gluconate (Chlorhexidine Gluconate 0.12% 15 Ml Udc) 15 ml MUCOUS MEM BID [facility] Stop: 08/12/25 20:59 Last Admin: 08/14/24 08:54 Dose: 15 ml Docusate Sodium (Docusate Liquid 100 Mg/10 Ml Udc) 100 mg PO BID [facility] Stop: 08/12/25 12:29 Last Admin: 08/14/24 08:52 Dose: 100 mg Heparin Sodium (Porcine) (Heparin 5,000 Unit/Ml Vial) 5,000 unit SUBCUT Q8HR [facility] Stop: 08/12/25 21:59 Last Admin: 08/14/24 06:21 Dose: 5,000 unit Norepinephrine Bitartrate (Levophed) 16 mg in 250 mls @ 4.688 mls/hr IV .Q24H [facility]; Protocol Stop: 08/12/25 12:29 Last Infusion: 08/13/24 13:16 Dose: 0 mcg/min, 0 mls/hr Fentanyl (Fentanyl 1,000 Mcg/100 Ml D5w) 1,000 mcg in 100 mls @ 2.5 mls/hr IV .Q24H [facility]; Protocol Last Titration: 08/14/24 11:25 Dose: 0 mcg/hr, 0 mls/hr Midazolam HCl (Versed) 100 mg in 100 mls @ 1 mls/hr IV .Q24H [facility]; Protocol Stop: 02/08/25 14:14 Last Admin: 08/14/24 06:57 Dose: 10 mg/hr, 10 mls/hr Magnesium Sulfate (Magnesium Sulf 2gm-*Swfi*) 2 gm in 50 mls @ 25 mls/hr IV DAILY PRN PRN Reason: Magnesium Level < 1.7 Stop: 08/12/25 18:07 Last Infusion: 08/13/24 07:46 Dose: Infused Azithromycin (Zithromax) 500 mg in 250 mls @ 250 mls/hr IV Q24H [facility] Stop: 08/16/24 21:29 Last Infusion: [...] 100 mls @ 200 mls/hr IV Q24H [facility] Last Infusion: 08/14/24 11:33 Dose: [...] 40 Mg Vial) 40 mg IV-PUSH DAILY [facility] Stop: 08/13/25 08:59 Last Admin: 08/14/24 08:52 Dose: 40 mg Potassium Chloride (Potassium Chloride Er 20 Meq Tab.Er.Prt) 40 meq PO DAILY PRN PRN Reason: Hypokalemia Stop: 08/12/25 18:07 Propofol (Propofol - Infusion Bolus 1,000 Mg/100 Ml Vial) 0 mg IV PROTOCOL PRN PRN Reason: Bolus Documentation Stop: 08/14/25 09:29 Sennosides (Sennosides Syrup 8.8 Mg/5 Ml Udc) 8.8 mg PO BID [facility] Stop: 08/12/25 20:59 Last Admin: 08/14/24 08:52 Dose: 8.8 mg Sodium Chloride (Sodium Chloride 0.9 % 10 Ml Syringe) 0 ml IV-PUSH QSHIFT [facility] Stop: 08/12/25 21:59 Last Admin: [...] Shavon Astorga M.D.08/14/2024 7:08 AM Dictation Location: [place] [address] Any impression(s) listed above is documentation that [...] shock. She has no evidence of obstructive uropathyon CAT scan. Her renal function is declining. [...] * Documented By: Rolo Perez MD 08/14/24 1142 Signed By: <Electronically signed by Rolo Perez MD> 08/14/24 7903 [facility] Work Phone: 1(799) 182-668109-25-2024 Progress note Author Mike Verduzco [facility] August 13, 2024 10:15pmNote Date/TimeSeptember 2023 10:15pmChristopher [place] [id number] Hospitalist Progress Note Signed Patient: German Jacob MR#: [id number] : 1990 Acct:[id number] Age/Sex: 33 / F Adm Date: 4 Loc: Room: [address] [place] [address] Type: ADM IN Attending Dr: Mike Verduzco [...] Growth 1 Day 08/12/24 12:48 Urine - Naavrro Catheter Urine Culture - Preliminary Escherichia coli [...] By: <Electronically signed by Mike Verduzco MD> 08/13/242214 [facility] Work Phone: 1(815) 366-599609-24-2024 Consult note Author Rolo Perez [facility] August 13, 2024 1:36pmNote Date/TimeSeptember 2023 1:36pmChristopher [place] [id number] Nephrology Consult Note Signed Patient: German Jacob MR#: [id number] : 1990 Acct:[id number] Age/Sex: 33 / F Adm Date: 4 Loc: 4C Room: 5X4220-4 Type: ADM IN Attending Dr: Mike Verduzco [...] He heard gurgling breathing sounds and noticed foamingout of her mouth and subsequently called EMS. [...] Q6HR FEL[facility] Stop: 08/13/25 00:00 Last Admin: 08/13/24 05:39 [...] Ml) 1,000 mls @ 100 mls/hr IV .M66QHSO Stop: 08/12/25 18:14 Last Admin: 08/13/24 04:15 Dose: 100 mls/hr Magnesium Sulfate (Magnesium Sulf 2gm-*Swfi*) 2 gm in 50 mls @ 25 mls/hr IV DAILY PRN PRN Reason: Magnesium Level < 1.7 Stop: 08/12/25 18:07 Last Infusion: 08/13/24 07:46 Dose: Infused Ampicillin Sodium/Sulbactam Sodium (Unasyn) 1.5 gm in 100 mls @ 200 mls/hr IV Q6H [facility] Last Admin: 08/13/24 07:31 Dose: 200 mls/hr Azithromycin (Zithromax) 500 mg in 250 mls @ 250 mls/hr IV Q24H [facility] Last Infusion: 08/13/24 07:00 Dose: Infused Magnesium 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 and sedated Musculoskeletal: No swelling or [...] Cloudy A Urine pH 6.0 Ur Specific [place] 1.015 Urine Protein 50 H Urine Glucose (UA) Normal Urine Ketones Trace H Urine Occult Blood Negative Urine Nitrite Negative Ur Leukocyte Esterase 1+ H Urine RBC 1-2 Urine WBC 5-9 H Urine Bacteria Rare Radiology Impressions Impressions - last 24 hours: Impressions Head CT 08/12/24 10:14 IMPRESSION: NO ACUTE INTRACRANIAL ABNORMALITY. Impression dictated by: Shavon Astorga M.D.08/12/2024 1:57 PM Dictation Location: [place] [address] Chest CTA 08/12/24 10:27 IMPRESSION: NO OBVIOUS PULMONARY EMBOLISM WITHIN LIMITS OF RESPIRATORY MOTION. MULTIFOCAL BILATERAL INFILTRATES, LEFT SIDE WORSE THAN RIGHT. CT ABDOMEN AND PELVIS WITH CONTRAST COMPARISON: None Spiral images were obtained through the abdomen and pelvis following 90 mL Isovue-370. This CT examwas performed using one or more following dose [...] DISEASE. Impression dictated by: Vadim Mabry Jr., D.OAna08/12/2024 12:42 PM Dictation Location: [facility] Chest X-Ray 08/12/24 14:18 IMPRESSION: LIFE-SUPPORT DEVICES, DESCRIBED. BILATERAL INFILTRATES. Impression dictated by: Shavon Astorga M.D.08/12/2024 2:59 PM Dictation Location: [facility] Chest X-Ray 08/12/24 15:45 IMPRESSION: Interval placement of a right IJ line with the tip in the superior vena cava distally. No pneumothorax. Otherwise unchanged chest. Impression dictated by: Jb Cerrato M.D.08/12/2024 4:14 PM Dictation Location: [facility] Chest X-Ray 08/13/24 05:00 IMPRESSION: PERSISTENT LEFT AND IMPROVING RIGHT-SIDED PARENCHYMAL CHANGES. Impression dictated by: Shavon Astorga M.D.08/13/2024 7:48 AM Dictation Location: [place] [address] Any impression(s) listed above is documentation that [...] shock. She has no evidence of obstructive uropathyon CAT scan. Her renal function is declining. [...] question. Documented By: Rolo Perez MD 08/13/24 1203 Signed By: <Electronically signed by Rolo Perez MD> 08/13/24 0036 [facility] Work Phone: 1(991) 182-115209-24-2024 Progress note Author Renny Multani [facility] August 13, 2024 10:52amNote Date/TimeSeptember 2023 10:52am[place]amaica[place] [address] Pulmonology Progress Note Signed Patient: German Jacob MR#: [id number] : 1990 Acct:[id number] Age/Sex: 33 / F Adm Date: 4 Loc: Room: [address] [place] [address] Type: ADM IN Attending Dr: Mike Verduzco [...] Last 24 Hours: Intake & Output 08/12/24 08/13/24 08/13/24 23:59 07:59 15:59 Intake Total 350 / [...] aspiration which should also adequately cover nonresistant gram- negative bacilli in the urine. Patient's pressure requirements have decreased slightly. We will continue supportive care with the biggestconcern being difficulty with sedating the patient. Electrolytes were corrected with administrationof sodium phosphate and magnesium. Patient has appropriate DVT and stress ulcer prophylaxis. Await nutritional recommendations per dietitian and can start nutrition tomorrow. Continue supportive care. Documented By: Renny Multani MD 4 1047 Signed By: <Electronically signed by MD Renny Multani> 08/13/24 1052 [facility] Work Phone: 1(884) 466-398609-23-2024 History and physical note Author Mike Verduzco [facility] August 12, 2024 8:10pmNote Date/TimeSeptember 2023 6:39pmJamaica[place] [address] Hospitalist H&P Signed Patient: German Jacob MR#: [id number] : 1990 Acct:[id number] Age/Sex: 33 / F Adm Date: 4 Loc: Room: [address] [place] [address] Type: ADM IN Attending Dr: Mike Verduzco MD Copies to: Mkie Verduzco MD NO FAMILY PHYSICIAN~ HPI DATE [...] was called and discussed recent history. Patient's caterinaBeltran Marcelo stated that patient was in her normal state of health up until last night around 1030?11 PM. Patient lives with her shannan Robertson. He notes that she was recently in [...] up this morning, and found patient on thecouch obtunded and minimally responsive. He notes that [...] well, and ultimately required IV vasopressor support includingnorepinephrine and epinephrine. Patient was receiving these through peripheral IV when she arrived to the ICU however. Lab work was noteworthy for anemia 10.4, creatinine elevated at 1.71. Patient was started on IV fluids, she did receive Narcan on initial presentationand self extubated herself. Unclear if the Narcan clearly reversed her initial obtundation. Patient was reintubated again and thenreintubated a third time when cuff leak was not improving. Case was discussed between myself and EDattending and patient was admitted to hospitalist service for further management. Review of Systems Review of Systems Review of systems: 10 point ROS reviewed and is negative except for that which is noted above in [facility] Medical History (Updated 08/12/24 @ 20:09 [...] % (Auto) 21.1 % (.) 08/12/24 10:35 Bent % (Auto) 10.2 % (.) 08/12/24 10:35 Eos % (Auto) 0.0 % (.) 08/12/24 10:35 Baso % (Auto) 0.2 % (.) 08/12/24 10:35 Nucleat RBC Rel Count 0.1 /100 WBC (0-0.5) 08/12/24 10:35 Neut # (Auto) 5.2 x10E3/uL (1.8-7.7) 08/12/24 10:35 Lymph # (Auto) 1.6 x10E3/uL (1.00-4.8) 08/12/24 10:35 Bent # (Auto) 0.8 x10E3/uL (0.0-0.8) 08/12/24 10:35 [...] pH 6.0 (5.0-9.0) 08/12/24 12:48 Ur Specific [place] 1.015 (1.001-1.030) 08/12/24 12:48 Urine Protein 50 [...] setting as: INPATIENT because of an expectation ofan over 2 midnight stay. Estimated length of stay (# of days): 5 Documented By: Mike Verduzco MD 4 2146 Signed By: <Electronically signed by Mike Verduzco MD> 08/12/242009 [facility] Work Phone: 1(574) 146-904809-23-2024 Consult note Author Renny Multani [facility] August 12, 2024 7:11pmNote Date/TimeSeptember 2023 7:11pmChristopher Ville [phone] Pulmonology Consult Note Signed Patient: German Jacob MR#: [id number] : 1990 Acct:[id number] Age/Sex: 33 / F Adm Date: 4 Loc: Room: [address] [place] [address] Type: ADM IN Attending Dr: Mike Verduzco [...] management. [facility] for alteredmental status. Patient reportedly [...] status and Unobtainable due to endotracheal tube [facility] Medical History (Updated 08/12/24 @ 16:22 by Chase Packer DO) No pertinent past medical history Surgical [...] CT/CT angio chest PE protocol: hypoxic, ams ([id number]) CT/CT abdomen pelvis w con: ams CLINICAL [...] being monitored to try and keep at [id number]. We will check a serum cortisol level to determine if there is any concern for adrenal insufficiency. Will make sure patient has appropriate DVT and stress ulcer prophylaxis. Endotracheal tube will need to go down to centimeters. We will continue supportive care and follow-up on cultures. Documented By: Renny Multani MD 1899 Signed By: <Electronically signed by MD Renny Multani> 08/12/241910 [facility] Work Phone: 1(526) 757-330404-17-2023 Evaluation note* Encounter Date Diagnosis Assessment Notes Treatment Notes Treatment Clinical Notes Feb, Sore throat (ICD-10 - J02.9) Feb,cute pharyngitis due to other specified organisms (ICD-10 - J02.8) Pharyngitis/tonsillopharyngitis: adult home care material was printed Drink plenty fluids, get plenty of rest. Take the amoxicillin and prednisone as prescribed until gone. Take Tylenol or Motrin as needed for aches pains or fevers. Consider drinking warm tea with honey for comfort. Follow-up with your family physician if no improvement in 2 to 3 days Feb,Other specified bacterial agents as the cause of diseases classified elsewhere (ICD-10 - B96.89) [facility] Other 02-28-2023 Hospital course Narrative* Radha Tapia RN - 01/17/2023 2:14 PM EST Discussed with the patient and all questioned fully answered. She will call me if any problems arise. Pt notified policy writer sales while discharging that she is missing her medications and her old nurse took them from her old room (409) and placed them on 4c. Looked on 4c, medications not here. Called 4ab, Skyler ended up finding medications. Pt sent home with medications to [facility] [place] [place] by mother. * Segundo Soto MD - 01/16/2023 5:32 PM EST Images from the original note were not included. [facility] Office: [phone] Cornel Ortiz DO, Wiley Singh DO, Enmanuel [...] Musa Lux CNP, Teri Campos, BERNADINE, Shaylee Guillermo CNP, Andria Castro CNP, Haritha Giron, LOCKSTITCHER, Aga Hoskins LOCKSTITCHER, Rafia Mccormick LOCKSTITCHER, Macario Andrade, PA-C, Luana Henriquez, DIESEL MECHANIC, Leyla Vora, LOCKSTITCHER, Merline Lyles, LOCKSTITCHER [facility] IN-PATIENT SERVICE [facility] Discharge Summary Patient ID: German Jacob : 1990 ACCOUNT: [id number] Patient's PCP: No primary care provider on [...] Physician Follow Up: Leonardo Zamarripa MD [address] [place] [address] Follow up Requiring Further Evaluation/Follow Up POST [...] tablet Commonly known as: INDERAL vitamin D 53928 UNIT Caps Commonly known as: CHOLECALCIFEROL Where to Get Your Medications These medications were sent to [facility], [place] - [address] [facility] - P [phone] - F [phone] [place] [address] 33542 folic acid 1 MG tablet nicotine 10 [...] this patient's care. documented [facility] this encounterB[facility] Work Phone: 1(847) 761-296602-28-2023 History of Present illness Narrative* Bernarda Nolasco - 01/17/2023 10:15 AM EST SPIRITUAL CARE DEPARTMENT - [facility] PROGRESS NOTE Shift date: 01/17/2023 Shift day: Monday Shift # 1 Room # 0436/0436-01 Name: German Jacob Jainism: None Place of yazidi: Referral: Routine Visit Admit Date & Time: 01/12/2023 9:31 PM Assessment: German Jacob is a 32 y.o. female in the hospital because of a seizure . Upon entering the roomwriter observes patient crossed-legged in bed in darkened room. Pt appeared uninterested in visit. She said she is supposed to be going to a rehab/detox facility today. Intervention: Napper Tender introduced self and title as salesperson fashion accessories Napper Tender offered space for patient to express feelings, needs, and concerns and provided a ministry presence. Outcome: Patient thanked salesperson fashion accessories for visit. Plan: Chaplains will remain available to offer spiritual and emotional support as needed. . Spiritual Care Department [facility] [phone] 01/17/23 1014 Encounter Summary Service Provided For: Patient Referral/Consult From: Rounding Support System Unknown Last Encounter 01/17/23 Complexity [...] from the original note were not included. [facility] Office: [phone] Cornel Ortiz DO, Wiley Singh DO, Enmanuel [...] Castro CNP, Haritha Giron CNP, Aga Hoskins CNP, Rafia Mccormick CNP, Macario Andrade PA-C, Luana Henriquez, DIESEL MECHANIC, Leyla Vora, ISABEL, Merline Lyles CNP [facility] IN-PATIENT SERVICE [facility] Progress Note 01/16/2023 11:41 AM Name: German Jacob Acct: [id number] Room: [address] [place] [address] Day: 4 Admit Date: 01/12/2023 9:31 PM [...] use. Drugs: IV, Opiates , and Marijuana ([place]). Family History: History reviewed. No pertinent family [...] RDW, PLT, MPV, SEDRATE, CRP, INR, DDIMER, [id number], LABABSO in the last 72 hours. Invalid [...] results found for: POCPH, PHART, PH, POCPCO2, MAP1LSI, PCO2, POCPO2, PO2ART, PO2, POCHCO3, HVP1WWP, HCO3, NBEA, PBEA, BEART, BE, THGBART, THB, PRH4UVQ, RJOC2ZUR, P6OHIQML, O2SAT, FIO2 Lab Results Component Value Date/Time [...] Moya RN - 01/16/2023 10:51 AM EST Napper Tender called report to MARQUES Garcia for transfer of pt * SAMY Olivas NP - 01/15/2023 8:00 AM EST Images from the original note were not included. [facility] Office: [phone] Cornel Ortiz DO, Wiley Singh DO, Enmanuel [...] Teri Campos DNP, Shaylee Guillermo CNP, Andria Castro, LOCKSTITCHER, Haritha Giron, LOCKSTITCHER, Aga Hoskins, LOCKSTITCHER, Rafia Mccormick, LOCKSTITCHER, Macario Andrade PA-C, Luana Henriquez, DIESEL MECHANIC, Leyla Vora, ISABEL, Merline yLles, ISABEL [facility] IN-PATIENT SERVICE [facility] Progress Note 01/15/2023 8:00 AM Name: German Jacob Acct: [id number] Room: [address] [place] [address] Day: 3 Admit Date: 01/12/2023 9:31 PM [...] tobacco abuse status post recent detox at [facility] earlier this month now returns with seizures r/t alcohol withdrawal. Patient detoxed earlier this month late last month for polysubstance use with IV drug abuse, chronic daily alcohol. Previously at [facility]. Patient describes abrupt onset of withdrawal symptoms [...] use. Drugs: IV, Opiates , and Marijuana ([place]). Family History: History reviewed. No pertinent family [...] Net 1680 ml Labs: Hematology: Recent Labs 01/12/23215001/13/23 0638 WBC 4.8 4.4 RBC 4.08 2.94* HGB 14.4 10.4* HCT 43.7 31.1* MCV 107.1* 105.8* MCH 35.3* 35.4* MCHC 33.0 33.4 RDW 14.8* 14.6* PLT 150 100* MPV 9.6 8.9 INR -- 1.1 Chemistry: Recent Labs 02/23/215001/12/23215801/13/23 0638 NA 138 -- 133* K 3.9 [...] results found for: POCPH, PHART, PH, POCPCO2, JLU4DXL, PCO2, POCPO2, PO2ART, PO2, POCHCO3, VAP3MAL, HCO3, NBEA, PBEA, BEART, BE, THGBART, THB, AXJ9FLP, SIFY9GBL, E5ZLEJNV, O2SAT, FIO2 Lab Results Component Value Date/Time [...] and social work for drug/alcohol cessation living. SAMY OLIVAS NP 01/15/2023 8:00 AM * Madison Quarles RN - 01/15/2023 5:41 AM EST Pt sleeping. bp 132/105, r54. Conveyor Tender notified. No new orders. * German Concepcion RN - 01/14/2023 9:09 AM EST DBP greater than 100, Andria Castro WATER PLUMBER notified * SAMY Olivas NP - 01/14/2023 7:35 AM EST Images from the original note were not included. [facility] Office: [phone] Cornel Ortiz DO, Wiley Singh DO, Enmanuel [...] Gonzalez MD, Macie Patel MD, Pam Sim, LOCKSTITCHER, Clover Christopher, LOCKSTITCHER, Analy Godoy, LOCKSTITCHER, Musa Lux, LOCKSTITCHER, Teri Campos, BERNADINE, Shaylee Guillermo, LOCKSTITCHER, Andria Castro, LOCKSTITCHER, Haritha Giron, LOCKSTITCHER, Aga Hoskins, LOCKSTITCHER, Rafia Mccormick, LOCKSTITCHER, HAMILTON MagallanesC, Luana Henriquez, DIESEL MECHANIC, Leyla Vora, LOCKSTITCHER, Merline Lyles, [facility] IN-PATIENT SERVICE [facility] Progress Note 01/14/2023 7:36 AM Name: German Jacob Acct: [id number] Room: [address] [place] [address] Day: 2 Admit Date: 01/12/2023 9:31 PM [...] tobacco abuse status post recent detox at [facility] earlier this month now returns with seizures r/t alcohol withdrawal. Patient detoxed earlier this month late last month for polysubstance use with IV drug abuse, chronic daily alcohol. Previously at [facility]. Patient describes abrupt onset of withdrawal symptoms [...] use. Drugs: IV, Opiates , and Marijuana ([place]). Family History: History reviewed. No pertinent family [...] Net 22.93 ml Labs: Hematology: Recent Labs 01/12/23215001/13/23 0638 WBC 4.8 4.4 RBC 4.08 2.94* [...] results found for: POCPH, PHART, PH, POCPCO2, YIU4ZHK, PCO2, POCPO2, PO2ART, PO2, POCHCO3, YFI7TRA, HCO3, NBEA, PBEA, BEART, BE, THGBART, THB, YXL8TXB, [id number], S2QALIVA, O2SAT, FIO2 Lab Results Component Value Date/Time [...] in 15 minutes. documented in this encounterBON [facility] Work Phone: 1(351) 894-703202-26-2023 NoteBorderline dilated common bile duct up to 7-8 mm. Given the patient's elevated bilirubin, further evaluation should be considered. MRCP can be considered. No cholelithiasis. Liver steatosis. [facility] RIS [id number] NoteI, Harinder Heaton -(scribe), documented on behalf [...] with the documented findings and plan of care.[facility]11-09-2022 NoteProcedure ECG 12 lead Performed by: Kori Ellsworth DO Authorized by: Kori Ellsworth DO ECG reviewed by ED Physician in the absence of a nnp: yes Interpretation: Interpretation: normal Rate: ECG rate: 58 ECG rate assessment: bradycardic Rhythm: Rhythm: sinus bradycardia Ectopy: Ectopy: none QRS: QRS axis: Normal QRS intervals: Normal QRS conduction: normal ST segments: ST segments: Normal T waves: T waves: normal Comments: Qtc: 447 Kori Ellsworth DO 09/28/22 2219[facility]11-09-2022 NoteReceived phone call from detox who reported patient called to complete the intake assessment, but reported she voiced she was beyond suicidal . Reviewed records prior to assessment. Patient was admitted to [facility] from 09/23/2022 - 09/28/2022 for alcohol abuse and opiate overdose. It appears she may have discharged around 12:30pm with discharge recommendations to [facility] for detox assessment. Of note, it [...] front of traffic. She receives suboxone from [facility] , prescribed via telemedicine from a practitioner in [place], [place]. She denies any affiliation with a [facility]. She denies history of any psychiatric admissions. Psychiatric history, per patient - anxiety and depression. She confirmed that she visited [facility] who directed her to [facility] as they were incapable of helping her withdrawal. Rule out if due to patient requiring a hospital level of care for detox due to alleged amount of alcohol consumption. Advised of detox's call to policy writer sales. Informed that patient would need transfer to an alternative hospital if under a psychiatric emergency as [facility] detox does not accept individuals who are suicidal. Patient responded that she is not suicidal and wouldn't hurt myself . Reviewed with resident and RN - recommended medical clearance and psychiatry evaluation. Detox reported that they require psychiatry clearance before admission consideration.[facility]11-02-2022 Hospital Discharge instructions* Discharge Instructions* Sylvie Geronimo, - 09/21/2022 8:14 PM EDT You were seen in the emergency department today for heroin overdose and alcohol use. We initially tried to get you into rehab, but you want to go home. Please follow-up with your physicians. Return for any new or worsening symptoms Thank you for visiting [facility] Emergency Department. You need to call No primary care provider on file. to make an appointment as directed for follow up. Should you have any questions regarding your care or further treatment, please call [facility] Emergency Department at [phone]. Take any medications as prescribed, if given [...] file.. Stop drinking alcohol. Call [facility] [phone] or go to [facility] at 7am Monday - Monday to be evaluated (this is first come first serve) Return to the Emergency Department for worsening of pain, fever > 101.5, excessive nausea or vomiting, vomiting any blood, blood in your stool, or any other care or concern. documented in this encounterB[facility] Work Phone: consult note* Clinical Note Date No Information [facility] Work Phone: Discharge summary* Clinical Note Date No Information [facility] Work Phone: Evaluation note* Diagnosis Heroin overdose, undetermined intent, initial encounter (HCC)- Primary Alcohol use documented in this encounter [facility] Work Phone: evaluation note* Diagnosis Alcohol use with [...] (HCC) Other convulsions documented in this encounter [facility] Work Phone: evaluation note* Diagnosis Onset Date Resolution Status Acute hypoxemic respiratory failure acuteAltered mental statusacuteDelirium due to general medical conditionacute PneumoniaacuteSepsisate [facility] [facility] Work Phone: Evaluation note* Diagnosis Onset Date Resolution Status Acute hypoxemic respiratory failure acuteAKI (acute kidney injury)acuteAltered mental statusacuteAnemiaacute Aspiration pneumoniaacuteDelirium due to general medical conditionacute HypernatremiaacuteHypomagnesemiaacuteHypophosphatemiaacuteImpaired mobility and activities of daily livingacutePneumoniaacuteSepsisacuteSepsis with hypotension acuteThrombocytopeniaacuteUTI (urinary tract infection)acute [facility] Work Phone: Evaluation note* Type Assessment Date No Information [facility] Work Phone: History and physical note* Clinical Note Date No Information [facility] Work Phone: History general Narrative - Reported* Type Description Date Medical History Sciatica Medical HistoryAnxietyMedical HistoryDepressionMedical HistoryGERD (gastroesophageal reflux disease)Medical HistoryTachycardiaSurgical History tonsillectomy [place] Other History of Past illness Narrative* Condition Effective Dates (start - stop) O utcome No Information [facility] Work Phone: History of Present illness Narrative* Encounter Date Complaint History Of Prese nt Illness No Information [facility] Work Phone: Instructions* Date Instruction Additional Infor mation No Information [facility] Work Phone: Progress note* Clinical Note Date No Information [facility] Work Phone: Reason for referral (narrative)* Reason For Referral No Information [facility] Work Phone: Review of systems Narrative - Reported* System Pos/Neg Findings No Information [facility] Work Phone: Summary Purpose Family History No Family History Records Found Relationship Condition Age at Onset Recorded Date/T gisselle grandparent Unknown Malignant neoplasmUnknownHeart diseaseUnknown Family Member Type Diagnosis Age At Onset Mother Problem Alive and well Advance Directives No Advanced Directives Records FoundLatest Code Status on File Code StatusDate ActivatedDate InactivatedCommentsFull Code01/13/2023 12:13 AMCode StatusDate ActivatedDate InactivatedCommentsFull Code01/13/2023 12:13 AM01/17/2023 4:25 PM Advance Directive Response Recorded Date/ Time Advance Directives No July 1:19pm Directive Yes / No Effective Date File Name No Information Chief Complaint and Reason for Visit Chief Complaint unresponsive Reason for Visit Acute hypoxemic resp iratory failure Altered mental status Delirium due to general medical condition Pneumonia Sepsis Chief Complaint unresponsive unresponsive unresponsive unresponsive unresponsive unresponsiveReason for VisitAcute hypoxemic respiratory failure MOIRA (acute kidney injury) Altered mental status Anemia Aspiration pneumonia Delirium due to general medical condition Hypernatremia Hypomagnesemia Hypophosphatemia Impaired mobility and activities of daily living Pneumonia Sepsis Sepsis with hypotension Thrombocytopenia UTI (urinary tract infection) Additional Source Comments INFORMATION SOURCE (unrecogn ized section and content) DATE CREATED AUTHOR 04/20/2020 [facility] DATE CREATED AUTHOR AUTHOR'S ORGANIZ ATION 08/18/2020 [facility], [facility]. DATE CREATED AUTHOR AUTHOR'S ORGANIZ ATION 04/14/2021 [facility] DATE CREATED AUTHOR AUTHOR'S ORGANIZ ATION 01/19/2023 [facility] DATE CREATED AUTHOR AUTHOR'S ORGANIZ ATION 01/25/2023 [facility] DATE CREATED AUTHOR AUTHOR'S ORGANIZ ATION 01/29/2023 [facility] DATE CREATED AUTHOR AUTHOR'S ORGANIZ ATION 08/05/2023 [facility] DATE CREATED AUTHOR AUTHOR'S ORGANIZ ATION 05/21/2025 [facility] DATE CREATED AUTHOR AUTHOR'S ORGANIZ ATION 09/03/2025 [facility] Reason for Visit (unrecogniz ed section and content) ReasonCommentsDrug OverdoseHeroin, 8mg narcan INReasonCommentsSeizuresETOH withdrawal x2 daysSpecialtyDiagnoses / ProceduresReferred By ContactReferred To Contact Diagnoses Seizure (HCC) Alcohol withdrawal syndrome without complication (HCC) Alcohol use with withdrawal (HCC) [address] [place] [address] [facility] [address] [place] [address] Referral IDStatusReasonStart DateExpiration DateVisits RequestedVisits [id number] Scheduled Active and Recently Administ ered Medications (unrecognized section and content) Medication Order lactated ringers bolus (COMPLETED) 1,000 mL, IntraVENous, at 495.9 mL/hr, Administer over 121 Minutes, ONCE, On Mon09/21/22 at 1430, For 1 dose * 1446 (New Bag - Provider: Mert Foster RN) * 1622 (Stopped - Provider: Aubrie Colvin RN) LORazepam (ATIVAN) tablet 1 mg (COMPLETED) 1 mg, Oral, ONCE, 1 dose, On Mon09/21/22 at 1745 * 1742 (Given - Provider: Aubrie Colvin RN) midazolam PF (VERSED) injection 2 mg (COMPLETED) 2 mg, IntraVENous, ONCE, 1 dose, On Mon09/21/22 at 1945 * 1951 (Given - Provider: Karina Bishop RN) ondansetron (ZOFRAN) injection 4 mg (COMPLETED) 4 mg, IntraVENous, ONCE, 1 dose, On Mon09/21/22 at 1430 * 1445 (Given - Provider: Mert Foster RN) ondansetron (ZOFRAN) injection 4 mg (COMPLETED) 4 mg, IntraVENous, ONCE, 1 dose, On Mon09/21/22 at 1945 * 195 (Given - Provider: Karina Bishop RN) Medication Order01/15//// buprenorphine-naloxone (SUBOXONE) 8-2 MG SL tablet 2 tablet 2 tablet, SubLINGual, DAILY, First dose on Mon01/13/23 at 1500, Until Discontinued * 0905 (Given - Provider: German Concepcion RN) * 0802 (Given - Provider: Susan Moya, MARQUES) * 0805 (Given - Provider: Radha Tapia, MARQUES) cloNIDine (CATAPRES) 0.1 MG/24HR 1 patch 1 patch, TransDERmal, Administer over 7 Days, WEEKLY, First dose (after last modification) on Mon01/16/23 at 2200, Apply to a clean, hairless area of the upper outer arm or chest. Rotate patch site weekly. Apply protective overwrap/barrier/occlusive dressing supplied with the clonidine patch OVER the clonidine patch AFTER the patch has been applied. * 2204 (Patch Applied - Provider: Ale Garcia RN) * 2207 (Patch Removed - Provider: Ale Garcia RN [...] with MD prior to any invasive procedure. * 0905 (Given - Provider: German Concepcion RN) * 0802 (Given - Provider: Susan Moya RN) * 0806 (Not Given - Provider: Radha Tapia RN - Reason: Patient/family refused) folic acid (FOLVITE) tablet 1 mg 1 mg, Oral, DAILY, First dose on Mon01/13/23 at 0900, Until Discontinued * 0905 (Given - Provider: German Concepcion RN) * 0802 (Given - Provider: Susan Moya RN) * 0805 (Given - Provider: Radha Tapia RN) gabapentin (NEURONTIN) capsule 400 mg 400 mg, Oral, 3 TIMES DAILY, First dose on Mon01/13/23 at 1500, Until Discontinued * 09 (Given - Provider: German Concepcion RN) * 140 (Given - Provider: German Concepcion RN) * 2019 (Given - Provider: Jane Ibrahim RN) * 08 (Given - Provider: Susan Moya RN) * 140 (Given - Provider: Radha Tapia RN) * 2099 (Given - Provider: Ale Garcia RN) * 0805 (Given - Provider: Radha Tapia RN) * 1400 (Due) * 2099 (Due) hydrOXYzine HCl (ATARAX) tablet 50 mg 50 mg, Oral, 2 TIMES DAILY, First dose on Mon01/13/23 at 2100, Until Discontinued * 09 (Given - Provider: German Concepcion RN) * 2019 (Given - Provider: Jane Ibrahim RN) * 08 (Given - Provider: Susan Moya RN) * 2001 (Given - Provider: Ale Garcia RN) * 08 (Given - Provider: Radha Tapia RN) * 2099 (Due) pantoprazole (PROTONIX) tablet 40 mg 40 mg, Oral, DAILY BEFORE BREAKFAST, First dose on Mon01/14/23 at 0700, Until Discontinued, Do not crush or break. Substituted for Omeprazole (PRILOSEC). * 0633 (Given - Provider: Madison Quarles RN) * 0801 (Given - Provider: Susan Moya RN) * 0620 (Given - Provider: Ale Garcia RN) PHENobarbital (LUMINAL) injection 15.6 mg (COMPLETED) 15.6 mg (rounded from 16.2 mg), IntraVENous, 2 TIMES DAILY, 2 doses, First dose on Mon01/15/23 at 2100, Last dose on Mon01/16/23 at 0900 * 2019 (Given - Provider: Jane Ibrahim RN) * 0802 (Given - Provider: Susan Moya RN) prochlorperazine (COMPAZINE) injection 10 mg (COMPLETED) 10 mg, IntraVENous, ONCE, 1 dose, On Mon01/16/23 at 0345 * 0330 (Given - Provider: Jane Ibrahim, MARQUES) sodium chloride flush 0.9 % injection 5-40 mL 5-40 mL, IntraVENous, EVERY 12 HOURS SCHEDULED (2 times per day), First dose on Mon01/13/23 at 0900, Until Discontinued, For Line Patency: Peripheral IV = 5 mL; Midline or Central Line = 10 mL/lumen.If following IV push medication, administer flush at same rate as the IV push. Flush volume is determined by type of infusion therapy being given. For non-viscous solutions use: Peripheral IV = 5 mL Midline or Central Line = 10 mL/lumen For viscous solutions (i.e. blood components, parenteral nutrition, contrast media, or after obtaining blood sample) use: Peripheral IV = 10 mL Midline or CentralLine = 20 mL/lumen * 905 (Given - Provider: German Concepcion RN) * 2025 (Given - Provider: Jane Ibrahim, MARQUES) * 0803 (Given - Provider: Susan Moya RN) * 2001 (Given - Provider: Ale Garcia RN) * 0805 (Given - Provider: Radha Tapia, MARQUES) * 2100 (Due) thiamine tablet 100 mg 100 mg, Oral, DAILY, First dose on Mon01/13/23 at 0900, Until Discontinued * 0905 (Given - Provider: German Concepcion RN) * 0801 (Given - Provider: Susan Moya RN) * 0805 (Given - Provider: Radha Tapia, MARQUES) Medication Order///// 0.9 % sodium chloride infusion IntraVENous, at [...] Supplied) 1 puff, Inhalation, PRN, Starting on 01/14/23 at 1230, Until Discontinued, Smoking cessation, Please select a reason the therapeutic interchange was not accepted: Other (Please Comment) / patient supply, Patient Supplied ondansetron (ZOFRAN) injection 4 mg(Linked Group 2) 4 mg, IntraVENous, EVERY 6 HOURS PRN, Starting on Mon01/13/23 at 0013, Until Discontinued, Nausea, Vomiting, Administer if oral route cannot be used. * 2232 (Given - Provider: Jane Ibrahim RN) * 1018 (Given - Provider: Radha Tapia RN) ondansetron (ZOFRAN-ODT) disintegrating tablet 4 mg(Linked Group 2) 4 mg, Oral, EVERY 8 HOURS PRN, Starting on Mon01/13/23 at 0013, Until Discontinued, Nausea, Vomiting * 2232 (See Alternative - Provider: Jane Ibrahim RN) * 1018 (See Alternative - Provider: Radha Tapia, MARQUES) PHENobarbital (LUMINAL) injection 16.2 mg 16.2 mg, IntraVENous, EVERY 6 HOURS PRN, Starting on 01/15/23 at 1549, Until Tu01/17/23 at 1548, CIWA score 8 or greater * 0002 (Given - Provider: Jane Ibrahim RN) * 2236 (Given - Provider: Ale Garcia RN) * 1105 (Given - Provider: Radha Tapia RN - Comment: [email or web address]) PHENobarbital (LUMINAL) injection 32.5 mg () 32.5 mg, IntraVENous, EVERY 6 HOURS PRN, Starting on Mon01/13/23 at 1549, Until 01/15/23 at 1548, CIWA score 8 or greater * 0320 (Given - Provider: Madison Quarles RN) * 1414 (Given - Provider: German Concepcion RN) polyethylene [...] Refer to IV replacement orders Recheck K levelin AM. Not for use in patients with CrCl less than 30 mL/min. potassium chloride 10 mEq/100 mL IVPB (Peripheral Line)(Linked Group 3) 10 mEq, IntraVENous, PRN, Starting on Mon01/13/23 at 0013, Until Discontinued, at 100 mL/hr, Potassium Replacement, K Lab Replacement Action 2.7-3.0 10 mEq IVPB x 6 doses (60 mEq Total) < 2.7 CALLPHYSICIAN and 10 mEq IVPB x 6 doses (60 mEq Total) Infuse at 10 mEq/hr Repeat Potassium lab 1 hour after final administration. Not for use in patients with CrCl less than 30 mL/min. sodium chloride flush 0.9 % injection 10 mL 10 mL, IntraVENous, PRN, Starting on Mon01/13/23 at 0013, Until Discontinued, Line Care, After every IV line use Order Group 1: acetaminophen (TYLENOL) tablet 650 [...] unable to tolerate oral tablet. K Lab & amp;nbsp; Replacement Action 3.1 to 3.5 &am p;nbsp; 40 mEq ORAL x 1 Under 3.1 &nbs p; Refer to IV replacement protocol Recheck K [...]
Ordered Prescriptions (unrec ognized section and content) PrescriptionSigDispensedRefillsStart DateEnd Date nicotine (NICOTROL) 10 MG inhaler Inhale 1 puff into the lungs as needed for Smoking cessation 1 each // thiamine 100 MG tablet Take 1 tablet by mouth daily 30 tablet folic acid (FOLVITE) 1 MG tablet Take 1 tablet by mouth daily 30 tablet Care Teams (unrecognized sec tion and content) Team Status: Active Member Role Status Dates PHYSICIAN NO FAMILY Primary Care Provider Active Team Status: Inactive Member Role Status Dates PHYSICIAN NO FAMILY Primary Care Provider Active Start: August 12, 2024 End: August 21Jen Justice ProviderActiveStart: August 12, 2024 End: August 21, 2024Stevie Guzmánit ProviderActiveStart: August 12, 2024 End: August 21Yuniel Steiner ProviderActiveStart: August 12, 2024 End: August 21, 2024Kwame Ansariending ProviderActiveStart: August 12, 2024 End: August 21, 2024Yuniel Valdez ProviderActiveStart: August 12, 2024 End: August 21, 2024Yuniel Braun ProviderActiveStart: August 12, 2024 End: August 21, 2024Yennifer Moreno ProviderActiveStart: August 12, 2024 End: August 21arturo June Jr, DOOther ProviderActiveStart: August 12, 2024 End: August 21Yuniel Luong ProviderActiveStart: August 12, 2024 End: August 21Yuniel Huertas ProviderActiveStart: August 12, 2024 End: August 21, 2024 Team Status: Active Member Role Status Dates PHYSICIAN NO FAMILY Primary Care Provider Active Start: August 12, 2024 Scott Marcosrjaci ProviderActiveStart: August 12, 2024 Mike E Doishakpor , MDAdmit Provider, Other ProviderActiveStart: August 12, 2024 Renny Multani , KOLTONttending ProviderActiveStart: August 12, 2024 Team Status: Active Member Role Status Dates PHYSICIAN NO FAMILY Primary Care Provider Active Start: August 13, 2024 Scott Marcosrjaci ProviderActiveStart: August 13, 2024 Mike Buckley Doishakpor , MDAdmit Provider, Other ProviderActiveStart: August 13, 2024 Yuniel Solano ProviderActiveStart: August 13, 2024 Rolo Perez MDAttending Provider, Other ProviderActiveStart: August 13, 2024 Team Status: Active Member Role Status Dates PHYSICIAN NO FAMILY Primary Care Provider Active Start: August 19, 2024 Jen Marcos ProviderActiveStart: August 19, 2024 Mike Buckley Doishakpor , MDAdmit ProviderActiveStart: August 19, 2024 Yuniel Solano ProviderActiveStart: August 19, 2024 Yuniel Perez ProviderActiveStart: August 19, 2024 Leyla Emerson MDOther ProviderActiveStart: August 19, 2024 Vadim Banda MDOther ProviderActiveStart: August 19, 2024 Gerri Fabian APRNOther ProviderActiveStart: August 19, 2024 Steven June Jr, Other ProviderActiveStart: August 19, 2024 Macho Adan MDAttending Provider, Other ProviderActiveStart: August 19, 2024 Yuniel Ansari ProviderActiveStart: August 19, 2024 Team Status: Active Member Role Status Dates PHYSICIAN NO FAMILY Primary Care Provider Active Start: August 19, 2024 Scott Marcosrgenskinny ProviderActiveStart: August 19, 2024 Mike E Doamekpor , MDAdmit ProviderActiveStart: August 19, 2024 Yuniel Solano ProviderActiveStart: August 19, 2024 Yuniel Perez ProviderActiveStart: August 19, 2024 Leyla Emerson MDOther ProviderActiveStart: August 19, 2024 Yuniel Braun ProviderActiveStart: August 19, 2024 Gerrivance Fabian , APRNOther ProviderActiveStart: August 19, 2024 Steven June Jr, DOOther ProviderActiveStart: August 19, 2024 Yuniel Fishman ProviderActiveStart: August 19, 2024 Yuniel Ansari ProviderActiveStart: August 19, 2024 Kwame Lambending ProviderActiveStart: August 19, 2024 Team Status: Active Member Role Status Dates PHYSICIAN NO FAMILY Primary Care Provider Active Start: August 20, 2024 Jen Marcos ProviderActiveStart: August 20, 2024 Vesna Guzmán ProviderActiveStart: August 20, 2024 Rolo Perez MDOther ProviderActiveStart: August 20, 2024 Chidi Rick MDOther ProviderActiveStart: August 20, 2024 Leyla Emerson MDOther ProviderActiveStart: August 20, 2024 Yuniel Braun ProviderActiveStart: August 20, 2024 Gerrivance Fabian , APRNOther ProviderActiveStart: August 20, 2024 Steven June Jr, DOOther ProviderActiveStart: August 20, 2024 Macho Adan MDOther ProviderActiveStart: August 20, 2024 Renny Multani MDOther ProviderActiveStart: August 20, 2024 Munira Hassan ProviderActiveStart: August 20, 2024 Team Status: Active Member Role Status Dates PHYSICIAN NO FAMILY Primary Care Provider Active Start: August 12, 2024 Jen Marcos ProviderActiveStart: August 12, 2024 Vesna Guzmán Provider, Attending ProviderActiveStart: August 12, 2024 Name Effective Dates (start - stop) Status Members No Information Goals (unrecognized section and content) Goals may [...] BE BASED ON THE PRIMARY CLINICAL RECORDS. [employer] [facility]. provides no warranty or guarantee of the accuracy or completeness of information in this document.
== END 2025-09-15 06:21 | disposition left against medical advice (07) ==
PROVIDERS: Emergency Provider Internal Medicine; PCP Family Medicine
DX: F22 Delusional disorders (principal); Z53.29 Procedure and treatment not carried out because of patient's decision for other reasons; F14.90 Cocaine use, unspecified, uncomplicated
CPT/HCPCS: 99283